=== PATIENT | female | born 1935 | race Caucasian/White ===

== ENCOUNTER 2017-09-23 17:18 | Inpatient (IN) | payer MEDICARE, OTHER ==
[2017-09-23 18:27] LABS: CKMB 0.6 ng/mL (0-6.6); Troponin I Less than 0.010 ng/mL (< 0.028)
[2017-09-23] MEDS ORDERED: Ondansetron HCl/PF 4 MG/2 ML Vial IVP PRN ×2 (19:23→20:28)
[2017-09-23] MEDS ORDERED: Acetaminophen 325 MG TAB PO PRN ×2 (19:23→20:28)
[2017-09-23] MEDS ORDERED: Ondansetron ODT 4 MG TAB SL PRN (19:23)
[2017-09-23] MEDS ORDERED: Dextrose 50% Abboject 50 ML SYRINGE SLOW IVP PRN (20:22)
[2017-09-23] MEDS ORDERED: Dextrose 5% in Water 1,000 ML IV PRN (20:22)
[2017-09-23] MEDS ORDERED: Nitroglycerin 0.4 MG TAB (25 Tab Bottle) PO PRN (20:22)
[2017-09-23] MEDS ORDERED: Insulin Regular 300 UNITS/3 ML VIAL SC PRN (20:22)
[2017-09-23] MEDS ORDERED: Milk Of Magnesia 30 ML UDCUP PO PRN (20:28)
[2017-09-23] MEDS ORDERED: Ondansetron ODT 4 MG TAB PO PRN (20:28)
[2017-09-23] MEDS ORDERED: Mag-Al 1200 mg/1200 mg/30 ML UDCUP PO PRN (20:28)
[2017-09-23] MEDS ORDERED: Calcium Carbonate 500 MG ChewTAB PO PRN (20:28)
[2017-09-23] MEDS ORDERED: Senokot 8.6 MG TAB PO PRN (20:28)
[2017-09-23] MEDS ORDERED: Labetalol HCl 100 MG/20 ML VIAL SLOW IVP PRN (20:32)
[2017-09-23 21:01] LABS: Troponin I Less than 0.010 ng/mL (< 0.028)
--- NOTE | 2017-09-23 21:23 | HP ---
DATE OF ADMISSION: 09/23/2017 PRIMARY CARE PHYSICIAN: Dr. Flores. PRIMARY BREAK UP WORKER: Dr. Mccormick. CHIEF COMPLAINT: Chest discomfort. HISTORY OF PRESENT ILLNESS: Patient is an 82-year-old female with coronary artery disease, status po st CABG, paroxysmal atrial fibrillation, started on anticoagulation 6 weeks ago, diabetes mellitus ty pe 2, and dyslipidemia, presented to the emergency room with chest discomfort. Chest discomfort star rimma 2 days ago and has been on and off. She also felt generally weak and fatigued. The pain was pre cordial in location without any radiation. No aggravating or relieving factor reported. It was mild to moderate in intensity. Six weeks ago, the patient was found to have irregular heartbeat for whic h Dr. Mccormick started her on Xarelto. She denies any melena, hematochezia, or hematemesis. No feve r or chills reported. She denies any cough or recent immobilization. She has been feeling generally weak and tired as well. In the emergency room, her initial vital signs showed temperature 98, respirations 22, pulse rate of 84 with blood pressure 120/48 with O2 saturation 97% on room air. Her EKG showed nonspecific ST-T wa ve changes. She received aspirin and was transferred to this facility. PAST MEDICAL HISTORY: 1. Coronary artery disease, status post coronary artery bypass grafting. 2. Diabetes mellitus type 2. 3. Chronic diastolic heart failure. 4. Hypertension. 5. Chronic respiratory failure, on home oxygen. 6. History of mitral valve replacement. 7. Chronic anemia. 8. History of pulmonary embolism in 2000. 9. Coronary stent placement. 10. Hyperlipidemia. 11. Gastroesophageal reflux disease. 12. Chronic kidney disease stage 2. 13. Hypothyroidism. 14. Anxiety and depression. PAST SURGICAL HISTORY: 1. GIA cardioversions. 2. CABG. 3. Bilateral cataract surgery. 4. Tonsillectomy. 5. Cholecystectomy. 6. Abdominal hysterectomy. 7. Cardiac catheterization with stent placement. SOCIAL HISTORY: The patient is a former smoker, quit smoking several years ago, currently lives at [facility] with her family. She is FULL CODE and makes her own decision with the help of her family. ALLERGIES: The patient is allergic to PENICILLIN, NITROFURANTOIN and PENTAZOCINE. FAMILY HISTORY: Positive for heart disease. CURRENT HOME MEDICATIONS: Family to get accurate list of medications. She is unable to recall all o f her home medications. REVIEW OF SYSTEMS: The following complete review of systems was negative, unless otherwise mentioned in the HPI or below: Constitutional: Weight loss or gain, ability to conduct usual activities. Skin: Rash, itching. Eyes: Double vision, pain. ENT/Mouth: Nose bleeding, neck stiffness, pain, tenderness. Cardiovascular: Palpitations, dyspnea on exertion, orthopnea. Respiratory: Shortness of breath, wheezing, cough, hemoptysis, fever or night sweats. Gastrointestinal: Poor appetite, abdominal pain, heartburn, nausea, vomiting, constipation, or diarr hea. Genitourinary: Urgency, frequency, dysuria, nocturia. Musculoskeletal: Pain, swelling. Neurologic/Psychiatric: Anxiety, depression. Allergy/Immunologic: Skin rash, bleeding tendency. PHYSICAL EXAMINATION: VITAL SIGNS: As discussed above. GENERAL: An 82-year-old female in no apparent distress. She complains of some chest pain that gets worse on sitting up. HEENT: Atraumatic, normocephalic, Sclerae are anicteric. Moist mucous membrane, no oral lesion. NECK: Supple, no JVD appreciated. No carotid bruit. LUNGS: Essentially clear to auscultation bilaterally, no wheezing, rales or rhonchi. HEART: S1, S2 present. Regular rate and rhythm. No murmur, rubs, or gallops appreciated. Rhythm a ppears to be regular. ABDOMEN: Soft, nontender, bowel sounds present. EXTREMITIES: No edema or calf tenderness. NEUROLOGIC: Grossly nonfocal, moves all four extremities. PSYCHIATRY: Alert, awake, oriented x3. SKIN: Warm and dry. LYMPH NODES: No palpable lymph nodes in the neck. PERIPHERAL VASCULAR: Radial pulses palpable bilaterally. MUSCULOSKELETAL: No joint swelling or tenderness. LABORATORY FINDINGS: Troponins were negative. INR 1.6. Hemoglobin was 9.0. Her hemoglobin in Apri l was 12.8. Chemistries showed sodium 140, potassium 4.3, chloride 103, bicarbonate 25, BUN 23, crea tinine 0.86. EKG by my review as discussed above. Chest x-ray by my review showed borderline pulmon onra vascular congestion. IMPRESSION: 1. Chest discomfort. We will rule out acute coronary syndrome. 2. Recent atrial fibrillation, started on anticoagulation approximately 6 weeks ago. 3. Hypertension. 4. Coronary artery disease, status post coronary artery bypass grafting. 5. Diabetes mellitus type 2. 6. Chronic diastolic heart failure. 7. Hypertension. 8. Obstructive sleep apnea on CPAP. 9. Hypothyroidism. 10. Chronic anemia. 11. History of pulmonary embolism in the past. 12. Gastroesophageal reflux disease. 13. Hypothyroidism. 14. Chronic respiratory failure, on home oxygen. 15. Anemia without any melena or hematochezia. PLAN: The patient will be monitored as a 23-hour observation. Cardiology will be consulted. We baldemar l keep her n.p.o. past midnight. We will get serial troponins. We will resume anticoagulation. We will monitor hemoglobin and hematocrit closely. We will start her on insulin sliding scale. We will hold metformin for now. Continue proton pump inhibitors. Stool for occult blood will be done. Plan of care was discussed with the patient in detail. She stated understanding.
[2017-09-23] MEDS: Polyethylene Glycol 3350 17 GM Packet PO SCH (21:31)
[2017-09-23] MEDS: ALPRAZolam 0.25 MG TAB PO PRN (21:34)
[2017-09-23 22:38] VITALS: BMI 26.6
[2017-09-24 05:12] LABS: Hemoglobin 8.6 g/dL (12.0-16.0)
[2017-09-24] MEDS: Levothyroxine Sodium 75 MCG TAB PO SCH (05:58)
--- NOTE | 2017-09-24 07:14 | PDOC.PN ---
- Subjective Encounter Start Date: 09/24/17 Encounter Start Time: 07:12 Subjective: vague L chest discomfort, weak in legs - Objective Resuscitation Status: Resuscitation Status FULL:Full Resuscitation MAR Reviewed: Yes Vital Signs & Weight: Vital Signs (12 hours) Temp Pulse Resp BP BP Pulse Ox 09/24/17 04:25 97.6 F 74 18 112/55 L 94 L 09/23/17 23:19 98.1 F 73 18 112/54 L 96 09/23/17 20:23 96 09/23/17 19:36 98.1 F 77 21 H 126/59 L 95 Weight Weight 160 lb I&O: 09/23/17 09/24/17 09/25/17 06:59 06:59 06:59 Intake Total 680 Output Total 600 Balance 80 Result Diagrams: 09/24/17 04:24 Additional Labs: Accuchecks 09/24/17 09/23/17 05:59 20:23 POC Glucose 168 H 172 H Phys Exam - Physical Examination Neck: no JVD Respiratory: clear to auscultation bilateral Cardiovascular: RRR, no significant murmur Gastrointestinal: soft, positive bowel sounds Musculoskeletal: no edema Dx/Plan (1) Chest pain Code(s): R07.9 - CHEST PAIN, UNSPECIFIED Status: Acute Qualifiers: Chest pain type: unspecified Qualified Code(s): R07.9 - Chest pain, unspecified (2) Anemia Code(s): D64.9 - ANEMIA, UNSPECIFIED Status: Acute Qualifiers: Anemia type: unspecified type (3) CAD (coronary artery disease), [place] coronary artery Code(s): I25.10 - ATHSCL HEART DISEASE OF [place] CORONARY ARTERY W/O ANG PCTRS Status: Chronic Qualifiers: [place] vs. transplanted heart: [place] heart Associated angina: without angina Qualified Code(s): I25.10 - Atherosclerotic heart disease of [place] coronary artery without angina pectoris (4) Diabetes type 2, controlled Code(s): E11.9 - TYPE 2 DIABETES MELLITUS WITHOUT COMPLICATIONS Status: Chronic Qualifiers: Diabetes mellitus detention insulin use: with detention use Diabetes mellitus complication status: without complication Qualified Code(s): E11.9 - Type 2 diabetes mellitus without complications; Z79.4 - nursing home (current) use of insulin (5) HLD (hyperlipidemia) Code(s): E78.5 - HYPERLIPIDEMIA, UNSPECIFIED Status: Chronic Qualifiers: Hyperlipidemia type: pure hypercholesterolemia Qualified Code(s): E78.00 - Pure hypercholesterolemia, unspecified; E78.0 - Pure hypercholesterolemia (6) Hypothyroidism Code(s): E03.9 - HYPOTHYROIDISM, UNSPECIFIED Status: Chronic Qualifiers: Hypothyroidism type: unspecified - Plan discuss with cardiology -: Hg 11+ 1 yr ago, now 8.5. Monitor Hg, FOBT, hold xarelto -: accu/ ss -: selectd home meds * .
[2017-09-24] MEDS ORDERED: Non-Formulary Item 1 EACH (Rivaroxaban [Xarelto] 20 MG) PO SCH (09:00)
[2017-09-24 11:17] LABS: Hemoglobin 8.9 g/dL (12.0-16.0); Platelet Count 154 thou/uL (130-400)
[2017-09-24] MEDS ORDERED: Rivaroxaban 10 MG TAB PO SCH (12:00)
[2017-09-24] MEDS: Ubidecarenone 50 MG CAP PO SCH (12:51)
[2017-09-24] MEDS: Losartan 25 MG TAB PO SCH (12:52)
[2017-09-24] MEDS: Furosemide 40 MG TAB PO SCH (12:52)
[2017-09-24] MEDS: Polyethylene Glycol 3350 17 GM Packet PO SCH (20:36)
[2017-09-24] MEDS: ALPRAZolam 0.25 MG TAB PO PRN (21:27)
--- NOTE | 2017-09-25 02:44 | CON ---
DATE OF CONSULTATION: 09/24/2017 HISTORY: Krista Pearson (Valorie Pearson) is an 82-year-old white female that I have followed for many years. She was initially evaluated in 10/2000. At the end of 09/2000, she ate [place] food and approximately 30 minutes later at rest , began to have chest tightness as well as pain in her neck, radiating to both arms. She had diaphoresis, nausea, shortness of breath, but no vomiting. This lasted 30 minutes. After that, she had short sticking pain in her chest that would only last 1-2 seconds. She denied any exertional chest discomfort, but did not walk regularly. She underwent stress echo testing and exercised for 5 minutes and 18 seconds and she had no chest discomfort. There was 1-[address]- segment depression in the anterior leads and [address]-segment depression in V4 through V6, which returned to baseline in 1-2 minutes. EKG was positive for ischemia. Echo revealed evidence of inferoposterior ischemia. She was placed on Toprol and Ecotrin. She underwent catheterization and had an ejection fraction of 50%-55%; 30% distal left main; small LAD, which was heavily calcified. There was a 60% proximal LAD stenosis at the left main. The circumflex was small with 40%-50% obtuse marginal stenosis. The right coronary artery had mild proximal disease and a 70% mid stenosis. She then underwent CABG x3 with SABA to the LAD and vein graft to the obtuse marginal and the distal right coronary artery. She had an uncomplicated postoperative course. After discharge, she sat in a chair with her legs propped up on the edge of her bed and began to notice that her right calf became sore. This gradually worsened. She had an episode where she fell to the ground and became acutely short of breath. Paramedics arrived and her O2 saturation was 77%. She was taken to the emergency room in [place], given Lovenox 1 mg/kg. Lung scan revealed high probability of pulmonary embolism. She was placed on Lovenox and then Coumadin. Cardiac enzymes were negative. She had a red, tender, and swollen right calf and it was felt that she probably had a DVT, although there was no further evaluation due to the evidence of pulmonary embolism. She was treated with Lasix for several days for fluid retention. At the time of discharge, her room air saturation was 94% and she was walking 200 feet in the beltre. In 12/2000, she was walking one-fifth of a mile per day. She denied any postprandial chest tightness like she had prior to bypass surgery. In 02/2001, she was admitted to [place] with epigastric discomfort that radiated to her back. She took nitroglycerin at home and went to the emergency room. Cardiac enzymes were negative. She was sent for further evaluation and underwent dobutamine echo testing. Ejection fraction was 50%-55% with scar of the inferoposterior wall, but no reversible ischemia. Imdur 30 mg was added. Troponin I was normal at that time. It was felt that the inferoposterior wall defect could represent prolonged ischemia in the region of her bypass graft. She also could have had a perioperative inferior infarction that was not clinically noted at the time of bypass. It was recommended that she undergo catheterization. She had an ejection fraction of 50%-55% with normal wall motion. There was a 60% proximal LAD, 80% first marginal. The right coronary artery had an 80% ostial stenosis and 80% mid stenosis. SABA to the LAD was patent. Vein graft to the obtuse marginal and to the right coronary artery were occluded. She underwent placement of stents in the right coronary artery, Penta 3.0 x 28, 3.5 x 33, and 3.5 x 13. It was noted that with balloon inflation, there were no EKG changes. It was felt that she probably had been developing collaterals. In the circumflex, 3 Pixel stents were placed; 2.25 x 28, 2.5 x 28, and 2.5 x 13. The following day, she was ambulating and was discharged. In 06/2001, she had been doing well, but has not been walking routinely. She had dramatic increase in fatigue as well as exertional dyspnea and had episodes of chest discomfort in the epigastrium that had radiated into her back. She had a prolonged episode and went to the emergency room. MB was 17.6, troponin I 3.7. It was felt that she had a non-STEMI and was transferred here. She underwent catheterization and was found to have subtotal in-stent restenosis involving both the right coronary artery and the circumflex systems. In addition, it was noted that she had [id number] mitral regurgitation and moderate reduction in left ventricular function. She was referred for reoperative CABG and mitral valve replacement, which was performed on 02/19/2001. She underwent repeat CABG x1 with saphenous vein graft to the distal right coronary artery and mitral valve replacement with a #29 Ray II bioprosthetic valve. The obtuse marginal beyond the stented area was considered not graftable as it was thread like. Additionally noted at operation was complete sternal dehiscence with the wires being pulled through. This was repaired. She was not seen again for 5 years until she came back to the office in 07/2006 complaining of lower substernal and epigastric discomfort that would occur at rest, lasting 10-15 minutes after eating. Gaviscon and belching would help. The episodes would last 15-20 minutes. She had weak legs that did not seem to have improved after stopping Crestor. Prevacid was changed from in the morning to the evening. With that change, she did not have any further episodes of chest discomfort. She also had a 1/6 systolic murmur along the left sternal border. Echo revealed ejection fraction of 50%-55% with mildly enlarged left atrium, bioprosthetic mitral valve, [id number] tricuspid regurgitation, and mild pulmonic regurgitation. She underwent adenosine Cardiolite testing, which revealed a fixed inferolateral defect with moderate degree of reversibility. In 02/2008, she complained of chest pressure and had negative cardiac enzymes. She was not seen again until 03/2009, when she came back complaining of right eye going black for a few minutes and then returning to normal. Carotid Doppler revealed greater than 50% narrowing of her left external carotid artery. She was seen by Dr. Javed and she did not have any retinal tear. Ecotrin was increased to 325 daily and she was told to restart her Crestor. In 05/2009, she was admitted after awakening at night with respiratory distress. She became clammy, diaphoretic, and could not breathe. She was taken to the emergency room in [place], started on BiPAP, and transferred for further evaluation. Two weeks prior to that, she apparently gone to the emergency room with the same problem and was given intravenous Lasix and her shortness of breath improved and she was discharged. She also admitted to high- salt intake at that time. She was diuresed with dramatic improvement in her symptoms. Echocardiogram revealed ejection fraction of 50%-55% with bioprosthetic mitral valve, mild mitral regurgitation, moderate mitral stenosis , and mitral valve area of 1.2 sq cm by pressure half-time, moderate pulmonic insufficiency, moderate tricuspid regurgitation, trace aortic insufficiency. With 2 separate episodes of pulmonary edema in a month's time, it was felt that she should undergo catheterization. Wedge pressure was 11. Cardiac output 4.10 liters per minute, cardiac index 2.5 liters per minute per meter square. The mean mitral valve gradient was 8.13 mm with a calculated mitral valve area of 1.25 sq cm. Ejection fraction was 45%-50% with mild global hypokinesis. Her coronary arteries were heavily calcified. There was a 90% distal left main stenosis; 95% in-stent restenosis of the proximal circumflex; 90% stenosis in the first obtuse marginal, which was also in-stent restenosis and severe distal circumflex disease. The right coronary artery had a 99% proximal stenosis and was totally occluded proximally. Bypass grafts revealed patent SABA to the LAD and the right coronary artery graft was also patent. The following day, she underwent transesophageal echo to further define her mitral valve prosthesis. Mitral valve apparatus was totally calcified, the leaflets were difficult to visualize. She had severe turbulence noted by color Doppler of the mitral inflow. Maximum pressure gradient was 25.6 mm with a mean gradient of 12.4 mm. Estimated mitral valve area was 1.5 sq cm. She was seen by Dr. Lopez and it was offered to her to undergo redo mitral valve replacement; however, she was hesitant to do that. In 02/2009, she was seen in the office, continued to have dyspnea on exertion, but no chest pain. In 10/2009, she was admitted complaining of increased weakness after she was told by her primary doctor she should reduce her Lasix to 1/2 of the dose. She then awoke at 1:30 a.m. to go to the bathroom, became acutely short of breath and was taken to the [facility], given intravenous Lasix. Chest x-ray revealed pulmonary edema. Hemoglobin was 8.4, but she denied any melena or hematochezia. She was found to have iron deficiency anemia. EGD and colonoscopy a year previously were unremarkable. She underwent outpatient capsule endoscopy, which did not reveal any source of GI bleed. Her aspirin was reduced to 81 mg daily. In 03/2010, she received transfusion in [place]. She continued to have increased shortness of breath. O2 saturation was 80%. She underwent CT angiogram, which revealed no evidence of pulmonary embolism. Echo at that time revealed mitral valve area of 1.9 sq cm by pressure half-time; however, this had been found to be much more severe on previous echo. She was diuresed. Again, it was recommended she undergo redo mitral valve replacement and she again declined. She was hospitalized again in 06/2010 with increased shortness of breath as well as episodes of PND, and again declined mitral valve replacement until her grandson had his wedding. She then underwent redo mitral valve replacement with placement of a 29-mm [place] porcine bioprosthesis. She was found to have calcification in 2 bioprosthetic valve leaflets and the third leaflet was essentially destroyed. She had a fairly unremarkable postoperative course. She continued to be followed in the office. At times, she would have peripheral edema when she would not take her Lasix. She was admitted again in 10/2013 complaining of increased shortness of breath, episodes of PND and abdominal swelling. She had lower extremity edema. Apparently at home, she was not using the DuoNeb like she did before, and she was on Lasix 20 mg instead of Lasix 40 mg versus before. She denied any chest discomfort. Echo at that time revealed ejection fraction of 45%-50% with a bioprosthetic mitral valve area of 1.4 sq cm. She had been noncompliant with her CPAP at night. She was again admitted in 01/2014, felt to be due to acute bronchitis as well as congestive heart failure. In 02/2016, she was again admitted with atrial flutter. This was the first time she ever been seen to have the atrial flutter. She underwent transesophageal echo, which revealed no left atrial or left atrial appendage thrombus. This was then followed by electrical cardioversion. She was started on Xarelto anticoagulation. She was again admitted in 04/2016 with melena. Upper endoscopy revealed multiple gastric polyps and afterwards was cleared by Dr. Dave to resume Xarelto. In 2016, she underwent colonoscopy, which revealed small internal hemorrhoids and some polyps with polypectomy. She did not return for followup from 07/2016 until she came back to the office on 07/31/2017. She would at times have chest discomfort if she would overeat. She had problems with muscle aches with Crestor, atorvastatin, and simvastatin, and was started on Repatha 140 mg daily on that visit. Also, on EKG, it was noted that she was back in atrial flutter. She had not resumed Xarelto and so, she was again started 20 mg daily since she had been approved by GI to resume anticoagulation. Since she has started taking that, she denies any melena or hematochezia. She has developed significant weakness, worsening shortness of breath, and episodes of atypical chest pain with pain on the left side of her chest that mostly is tender to the touch. Cardiac enzymes have been negative. She has been found to be anemic. PAST MEDICAL HISTORY: Hypertension, diabetes, hyperlipidemia, hypothyroidism, GERD, history of gastrointestinal bleed with no source found, and coronary artery disease. PAST SURGICAL HISTORY: Two CABGs, the second one with mitral valve replacement. She also then underwent her third heart surgery with replacement of mitral valve that became stenosed. Bilateral cataract surgery, tonsillectomy , cholecystectomy, abdominal hysterectomy, multiple cardiac stent placement. MEDICATIONS: Xanax 0.5 mg at bedtime p.r.n., aspirin 81 daily, Xarelto 20 mg q.p.m., furosemide 40 q.a.m., Prevacid 15 b.i.d., Synthroid 75 mcg daily, losartan 50 daily, metformin 1000 mg q.p.m. and 500 mg q.a.m., MiraLax, and CoQ10 200 mg daily. She also had been started on Repatha 140 mg every 2 weeks and has had 3 total doses of this. ALLERGIES: PENICILLIN, TALWIN, ACHROMYCIN, and MACROBID. SOCIAL HISTORY: She is . She has smoked in the past, stopped many years ago. She does not drink alcohol. FAMILY HISTORY: Negative for myocardial infarction, CABG, or sudden . REVIEW OF SYSTEMS: Twelve-point review of systems is unremarkable. PHYSICAL EXAMINATION: VITAL SIGNS: Blood pressure 119/58, pulse 74. HEENT: PERRL. NECK: Supple. CHEST: Clear. CARDIAC: S1 and S2 are normal without any S3 or S4. There is 1/6 systolic murmur along the left sternal border. ABDOMEN: Normal bowel sounds without tenderness, organomegaly. EXTREMITIES: Revealed no clubbing, cyanosis, or edema. NEUROLOGIC: Grossly intact. SKIN: Warm and dry. MUSCULOSKELETAL: Palpable tenderness of the left lower chest wall, which seems to reproduce lot of her symptoms. LABORATORY DATA: Admission EKG reveals probable atypical atrial flutter. Other rhythm strips during this admission revealed atrial fibrillation. Her rate appears to be well controlled. Hemoglobin on admission was 9, fell to 8.6 ; hematocrit 29, fallen to 25.8. INR 1.6. Sodium 140, potassium 4.3, chloride 103, carbon dioxide 25, BUN 23, creatinine 0.86, glucose 169. Troponin I is negative x3. Chest x-ray revealed borderline pulmonary vascular congestion and atherosclerosis. IMPRESSION: 1. Atypical chest discomfort, which I feel is probably more musculoskeletal in nature and do not feel that her chest pain is cardiac. 2. Increasing fatigue, weakness secondary to anemia with probable gastrointestinal bleed on Xarelto again. 3. Recurrence of atrial flutter and now at times it appears to be atrial fibrillation. The rate is controlled. 4. Status post coronary artery bypass grafting in 2000 with left internal mammary artery to the left anterior descending and vein graft to the obtuse marginal and the right coronary artery. 4. Pulmonary embolism in 11/2000 after bypass surgery. 5. Stenting of the circumflex and right coronary artery in 04/2001 when it was found that the obtuse marginal and right coronary artery grafts were occluded. 6. Redo coronary artery bypass grafting and mitral valve replacement in 2001 with bioprosthetic mitral valve being placed and vein graft to the right coronary artery. 7. 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 8. Diabetes. 9. Hypertension. 10. Hyperlipidemia. 11. Former smoker. 12. Iron deficiency anemia. 13. 24-hour O2 use. 14. Hypothyroidism. 15. Obesity. PLAN: I do not feel that her current pain is cardiac in nature. However, she does appear to have had a gastrointestinal blood loss from the Xarelto. Certainly, with her atrial arrhythmias and a bioprosthetic mitral valve, she has an increased stroke risk, but obviously cannot be anticoagulated now that she has had GI bleeding again on Xarelto. Her hemoglobin will be watched closely and she certainly may require transfusion. I will follow the patient with you. FAWAD
[2017-09-25] MEDS: Insulin Regular 300 UNITS/3 ML VIAL SC PRN (05:05)
[2017-09-25] MEDS: Levothyroxine Sodium 75 MCG TAB PO SCH (05:06)
[2017-09-25 05:20] LABS: #Eosinphils 0.7 thou/uL (0.0-0.7); #Lymphocytes 1.5 thou/uL (1.20-3.40); #Monocytes 0.7 thou/uL (0.11-0.59); %Basophils 0.1 % (0.0-1.0); %Eosinophils 10.2 % (0.0-10.0); %Lymphocytes 21.5 % (21.0-51.0); %Monocytes 9.4 % (0.0-10.0); %Neutrophils 58.8 % (42.0-75.0); Hemoglobin 8.6 g/dL (12.0-16.0); Mean Corpuscular HGB CONC 33.3 g/dL (32.0-36.0); Mean Corpuscular Hemoglobin 28.2 pg (27.0-31.0); Mean Corpuscular Volume 84.5 fL (78.0-98.0); Mean Platelet Volume 7.9 fL (7.4-10.4); Platelet Count 182 thou/uL (130-400); Red Blood Cell (RBC) Count 3.06 mill/uL (4.20-5.40); White Blood Cell (WBC) Count 6.9 thou/uL (4.8-10.8)
[2017-09-25 05:27] LABS: Cardiac Risk 2.9 (Less than 4.5)
[2017-09-25 07:34] LABS: Iron 28 ug/dL (50-170); Iron Binding Capacity, Total 384 mcg/dL (265-497)
[2017-09-25] MEDS ORDERED: Ferrous Sulfate 325 MG TAB PO SCH (09:15)
[2017-09-25] MEDS: Ubidecarenone 50 MG CAP PO SCH (09:44)
[2017-09-25] MEDS: Furosemide 40 MG TAB PO SCH (09:45)
[2017-09-25] MEDS: Losartan 25 MG TAB PO SCH (09:45)
[2017-09-25] MEDS: metFORMIN 500 MG TAB PO SCH ×2 (09:45→17:38)
--- NOTE | 2017-09-25 10:27 | PDOC.PN ---
- Subjective Encounter Start Date: 09/25/17 Encounter Start Time: 10:25 Subjective: better off xarelto - Objective Resuscitation Status: Resuscitation Status FULL:Full Resuscitation MAR Reviewed: Yes Vital Signs & Weight: Vital Signs (12 hours) Temp Pulse Resp BP Pulse Ox 09/25/17 09:06 96 09/25/17 08:00 98.4 F 75 18 09/25/17 07:37 98.1 F 76 20 183/74 H 96 09/25/17 03:15 98.4 F 75 18 149/67 H 97 09/25/17 00:45 75 18 152/65 H Weight Weight 158 lb 9.6 oz I&O: 09/24/17 09/25/17 09/26/17 06:59 06:59 06:59 Intake Total 680 1320 Output Total 600 1225 Balance 80 95 Result Diagrams: 09/25/17 04:41 09/24/17 11:09 Additional Labs: Accuchecks 09/25/17 09/24/17 09/24/17 04:41 20:29 16:59 POC Glucose 295 H 220 H 209 H 09/24/17 10:38 POC Glucose 194 H Phys Exam - Physical Examination Neck: no JVD Respiratory: clear to auscultation bilateral Cardiovascular: RRR, no significant murmur Gastrointestinal: soft, positive bowel sounds Musculoskeletal: no edema Dx/Plan (1) Chest pain Code(s): R07.9 - CHEST PAIN, UNSPECIFIED Status: Acute Qualifiers: Chest pain type: unspecified Qualified Code(s): R07.9 - Chest pain, unspecified (2) Anemia Code(s): D64.9 - ANEMIA, UNSPECIFIED Status: Acute Qualifiers: Anemia type: unspecified type (3) CAD (coronary artery disease), [place] coronary artery Code(s): I25.10 - ATHSCL HEART DISEASE OF [place] CORONARY ARTERY W/O ANG PCTRS Status: Chronic Qualifiers: [place] vs. 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 insulin use: with shelter use Diabetes mellitus complication status: without complication Qualified Code(s): E11.9 - Type 2 diabetes mellitus without complications; Z79.4 - long term care pharmacist (current) use of insulin (5) HLD (hyperlipidemia) Code(s): E78.5 - HYPERLIPIDEMIA, UNSPECIFIED Status: Chronic Qualifiers: Hyperlipidemia type: pure hypercholesterolemia Qualified Code(s): E78.00 - Pure hypercholesterolemia, unspecified; E78.0 - Pure hypercholesterolemia (6) Hypothyroidism Code(s): E03.9 - HYPOTHYROIDISM, UNSPECIFIED Status: Chronic Qualifiers: Hypothyroidism type: unspecified - Plan off xarelto, on asa,plavix -: serial H&H, retic count -: card has asked EP to see -: cont accu/ss/metformin * .
[2017-09-25] MEDS: Ferrous Sulfate 325 MG TAB PO SCH (17:38)
[2017-09-25] MEDS: Amiodarone 200 MG TAB PO SCH (21:35)
[2017-09-25] MEDS: Polyethylene Glycol 3350 17 GM Packet PO SCH (21:36)
[2017-09-25] MEDS: ALPRAZolam 0.25 MG TAB PO PRN (21:36)
[2017-09-26] MEDS: Levothyroxine Sodium 75 MCG TAB PO SCH (05:45)
[2017-09-26 05:51] LABS: Reticulocyte Count 2.8 % (0.5-1.5)
[2017-09-26 05:52] LABS: #Eosinphils 0.8 thou/uL (0.0-0.7); #Lymphocytes 1.5 thou/uL (1.20-3.40); #Monocytes 0.8 thou/uL (0.11-0.59); %Basophils 0.5 % (0.0-1.0); %Eosinophils 10.9 % (0.0-10.0); %Lymphocytes 21.2 % (21.0-51.0); %Monocytes 10.8 % (0.0-10.0); %Neutrophils 56.6 % (42.0-75.0); Hemoglobin 9.1 g/dL (12.0-16.0); Mean Corpuscular Hemoglobin 27.6 pg (27.0-31.0); Mean Corpuscular Volume 83.9 fL (78.0-98.0); Mean Platelet Volume 7.8 fL (7.4-10.4); Platelet Count 201 thou/uL (130-400); RBC Distribution Width 13.9 % (11.5-14.5); Red Blood Cell (RBC) Count 3.28 mill/uL (4.20-5.40); White Blood Cell (WBC) Count 7.1 thou/uL (4.8-10.8)
[2017-09-26] MEDS: Losartan 25 MG TAB PO SCH (08:58)
[2017-09-26] MEDS: Amiodarone 200 MG TAB PO SCH ×3 (08:58→19:49)
[2017-09-26] MEDS: Ferrous Sulfate 325 MG TAB PO SCH ×2 (08:58→16:14)
[2017-09-26] MEDS: Ubidecarenone 50 MG CAP PO SCH (08:58)
[2017-09-26] MEDS: metFORMIN 500 MG TAB PO SCH ×2 (08:59→16:14)
[2017-09-26] MEDS: Furosemide 40 MG TAB PO SCH (08:59)
[2017-09-26] MEDS: Insulin Regular 300 UNITS/3 ML VIAL SC PRN (11:36)
--- NOTE | 2017-09-26 13:30 | PDOC.CTH ---
Cardiology Progress Note - Subjective EP Progress note: Pt seen and evaluated. no significant changes overnight. She feels well and has not noticed any raphael or obvious bleeding. She reports tolerating the amiodarone. Denies heart racing, palpitations, chest pain/pressure, dizziness, or passing out. No stroke like symptoms off OAC. Tolerating PO intake and ambulating. - Objective Vital Signs Temp Pulse Resp BP BP Pulse Ox 09/26/17 12:00 98 F 77 16 177/72 H 95 09/26/17 08:00 97.9 F 74 16 147/63 H 93 L 09/26/17 04:25 96.6 F L 70 16 111/54 L 99 Weight 158 lb 9.6 oz 09/25/17 09/26/17 09/27/17 06:59 06:59 06:59 Intake Total 1320 1961 Output Total 1225 1100 Balance 95 861 - Physical Examination General/Neuro: alert & oriented x3, NAD Neck: carotid US brisk, no JVD present Lungs: CTA, unlabored respirations Heart: PMI normal, RRR Abdomen: soft - Telemetry Telemetry Rhythm: Atrial flutter - Labs Result Diagrams: 09/26/17 05:28 09/24/17 11:09 Troponin/CKMB CK-MB (CK-2) 0.6 ng/mL (0-6.6) 09/23/17 17:52 Troponin I Less than 0.010 ng/mL (< 0.028) 09/23/17 20:27 - Assessment/Plan 1. Recurrent atypical atrial flutter, asymptomatic and ventricular rate controlled, Amiodarone started and tolerating well. Planning possible GIA/CV as outpatient. 2. CHADS2 VASC: 5, xarelto on hold for anemia. Discussed trying alternative OAC with Eliquis and close monitoring in the future. If able to tolerate short term Eliquis we will discuss left atrial appendage closure with watchman given her hx of GIB on OAC. 3. Anemia secondary to slow GI bleed: Hgb stable and trending up slightly without transfusion.
[2017-09-26] MEDS: Polyethylene Glycol 3350 17 GM Packet PO SCH (19:50)
--- NOTE | 2017-09-26 20:57 | PDOC.PN ---
- Subjective Encounter Start Date: 09/26/17 Encounter Start Time: 11:30 Subjective: pt up in bed feels tired when she walks - Objective Resuscitation Status: Resuscitation Status FULL:Full Resuscitation Vital Signs & Weight: Vital Signs (12 hours) Temp Pulse Pulse Pulse Resp BP BP 09/26/17 15:07 98 F 72 16 09/26/17 12:00 98 F 77 16 09/26/17 11:40 58 L 75 137/63 165/70 H BP Pulse Ox Pulse Ox Pulse Ox 09/26/17 15:07 125/56 L 99 09/26/17 12:00 177/72 H 95 09/26/17 11:40 99 94 L Weight Weight 158 lb 9.6 oz I&O: 09/25/17 09/26/17 09/27/17 06:59 06:59 06:59 Intake Total 1320 1961 960 Output Total 1225 1100 800 Balance 95 861 160 Result Diagrams: 09/26/17 05:28 09/24/17 11:09 Additional Labs: Accuchecks 09/26/17 09/26/17 09/26/17 16:22 14:08 11:13 POC Glucose 199 H 193 H 216 H 09/26/17 09/25/17 05:45 21:39 POC Glucose 182 H 175 H Phys Exam - Physical Examination Neck: no nodes, no JVD, supple, full ROM Respiratory: no wheezing, no rales, no rhonchi, wheezing present, clear to auscultation bilateral Cardiovascular: RRR, no significant murmur, no rub, gallop, irregular Gastrointestinal: soft, non-tender, no distention, positive bowel sounds Dx/Plan (1) Chest pain Code(s): R07.9 - CHEST PAIN, UNSPECIFIED Status: Acute Qualifiers: Chest pain type: unspecified Qualified Code(s): R07.9 - Chest pain, unspecified (2) Atrial flutter Code(s): I48.92 - UNSPECIFIED ATRIAL FLUTTER Status: Resolved Comment: s/p ablation one month ago (3) Diabetes type 2, controlled Code(s): E11.9 - TYPE 2 DIABETES MELLITUS WITHOUT COMPLICATIONS Status: Chronic Qualifiers: Diabetes mellitus prison insulin use: with prison use Diabetes mellitus complication status: without complication Qualified Code(s): E11.9 - Type 2 diabetes mellitus without complications; Z79.4 - long-term (current) use of insulin - Plan pt's rate has been controlled -: pt wanted to go to rehab since she feels she gets weak and sob -: pt's hh stable without any transfusion -: this is the 3rd time she is anemic on xarelto. * . Review of Systems - Review of Systems ENT: negative: Ear Pain, Ear Discharge, Nose Pain, Nose Discharge, Nose Congestion, Mouth Pain, Mouth Swelling, Throat Pain, Throat Swelling, Other Respiratory: Shortness of Breath Cardiovascular: negative: chest pain, palpitations, orthopnea, paroxysmal nocturnal dyspnea, edema, light headedness, other Gastrointestinal: negative: Nausea, Vomiting, Abdominal Pain, Diarrhea, Constipation, Melena, Hematochezia, Other - Medications/Allergies Allergies/Adverse Reactions: Allergies Allergy/AdvReac Type Severity Reaction Status Date / Time nitrofurantoin Allergy SEIZURE Verified 07/29/16 14:05 penicillin V Allergy Rash Verified 04/23/16 01:26 Penicillins Allergy Rash Verified 04/23/16 01:26 pentazocine Allergy HALLUCINATI Verified 07/29/16 14:05 ONS pentazocine lactate Allergy Verified 04/23/16 01:26 [From Elizabeth] MYCINS Allergy SEIZURE Uncoded 07/29/16 14:05 Medications: Current Medications Acetaminophen (Tylenol) 650 mg PO Q4H PRN PRN Reason: Headache/Fever or Pain Al Hydroxide/Mg Hydroxide (Maalox) 30 ml PO Q6H PRN PRN Reason: Heartburn or Indigestion Alprazolam (Xanax) 0.25 mg PO HSPRN PRN PRN Reason: Anxiety Last Admin: 09/26/17 22:12 Dose: 0.25 mg Amiodarone HCl (Cordarone) 400 mg PO TID [facility] Last Admin: 09/27/17 20:06 Dose: 400 mg Aspirin (Aspirin Chewable) 81 mg PO DAILY [facility] Last Admin: 09/27/17 08:24 Dose: 81 mg Calcium Carbonate (Tums) 1,000 mg PO Q4H PRN PRN Reason: Heartburn or Indigestion Coenzyme Q10 (Coenzyme Q10) 200 mg PO DAILY [facility] Last Admin: 09/27/17 08:24 Dose: 200 mg Dextrose/Water (Dextrose 50%) 25 gm SLOW IVP PRN PRN PRN Reason: Hypoglycemia Ferrous Sulfate (Feosol) 325 mg PO BID[facility] Last Admin: 09/27/17 17:09 Dose: 325 mg Furosemide (Lasix) 40 mg PO DAILY [facility] Last Admin: 09/27/17 08:24 Dose: 40 mg Glucagon (Glucagon) 1 mg IM PRN PRN PRN Reason: Hypoglycemia Dextrose/Water (D5w) 1,000 mls @ 0 mls/hr IV .Q0M PRN PRN Reason: Hypoglycemia Insulin Human Regular (Humulin R) 0 units SC .MILD SLIDING SCALE PRN PRN Reason: Mild Correctional Scale Last Admin: 09/26/17 11:36 Dose: 3 unit Insulin Human Regular (Humulin R) 0 units SC .BEDTIME SLIDING SC PRN PRN Reason: Bedtime Correctional Scale Labetalol HCl (Normodyne) 10 mg SLOW IVP Q4H PRN PRN Reason: Systolic BP > 180 Levothyroxine Sodium (Synthroid) 75 mcg PO 0600 [facility] Last Admin: 09/27/17 05:05 Dose: 75 mcg Losartan Potassium (Cozaar) 50 mg PO DAILY [facility] Last Admin: 09/27/17 08:24 Dose: 50 mg Magnesium Hydroxide (Milk Of Magnesium) 30 ml PO DAILYPRN PRN PRN Reason: Constipation Metformin HCl (Glucophage) 500 mg PO QAM-[facility] Last Admin: 09/27/17 08:24 Dose: 500 mg Metformin HCl (Glucophage) 1,000 mg PO QPM-[facility] Last Admin: 09/27/17 17:09 Dose: 500 mg Nitroglycerin (Nitrostat) 0.4 mg PO Q5MIN PRN PRN Reason: Chest Pain Ondansetron HCl (Zofran Odt) 4 mg PO Q6H PRN PRN Reason: Nausea/Vomiting Ondansetron HCl (Zofran) 4 mg IVP Q6H PRN PRN Reason: Nausea/Vomiting Pantoprazole Sodium (Protonix) 40 mg PO BID [facility] Last Admin: 09/27/17 20:06 Dose: 40 mg Polyethylene Glycol (Miralax) 17 gm PO HS [facility] Last Admin: 09/27/17 20:06 Dose: 17 gm Senna (Senokot) 2 tab PO HSPRN PRN PRN Reason: Constipation Sodium Chloride (Flush - Normal Saline) 10 ml IVF PRN PRN PRN Reason: Saline Flush Last Admin: 09/27/17 20:06 Dose: 10 ml
[2017-09-26] MEDS: ALPRAZolam 0.25 MG TAB PO PRN (22:12)
[2017-09-27] MEDS: Levothyroxine Sodium 75 MCG TAB PO SCH (05:05)
[2017-09-27] MEDS: Ubidecarenone 50 MG CAP PO SCH (08:24)
[2017-09-27] MEDS: Furosemide 40 MG TAB PO SCH (08:24)
[2017-09-27] MEDS: metFORMIN 500 MG TAB PO SCH ×2 (08:24→17:09)
[2017-09-27] MEDS: Amiodarone 200 MG TAB PO SCH ×3 (08:24→20:06)
[2017-09-27] MEDS: Losartan 25 MG TAB PO SCH (08:24)
[2017-09-27] MEDS: Ferrous Sulfate 325 MG TAB PO SCH ×2 (08:25→17:09)
--- NOTE | 2017-09-27 16:14 | PDOC.CTH ---
Cardiology Progress Note - Subjective She is doing well. - Objective Vital Signs Temp Pulse Resp BP BP Pulse Ox 09/27/17 15:07 97.6 F 63 14 153/63 H 96 09/27/17 11:46 97.8 F 66 16 151/63 H 99 09/27/17 07:30 97.6 F 63 16 96 09/27/17 07:18 97.6 F 63 16 113/53 L 96 Weight 158 lb 9.6 oz 09/26/17 09/27/17 09/28/17 06:59 06:59 06:59 Intake Total 1961 960 Output Total 1100 800 Balance 861 160 - Physical Examination General/Neuro: alert & oriented x3, NAD Neck: no JVD present Lungs: unlabored respirations Heart: RRR Abdomen: NT/ND Extremities: other: (no edema.) - Telemetry Telemetry Rhythm: NSR - Labs Result Diagrams: 09/26/17 05:28 09/24/17 11:09 Troponin/CKMB CK-MB (CK-2) 0.6 ng/mL (0-6.6) 09/23/17 17:52 Troponin I Less than 0.010 ng/mL (< 0.028) 09/23/17 20:27 - Assessment/Plan 1. Recurrent atrial flutter. 2. Sypmtomatic anemia on Xarelto 3. Possible GI bleed. 4. 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 5. T2DM 6. HTN 7. HLP. PLAN: - EP may consider trying Eliquis instead of Xarelto see if she can tolerate at least 3 months worth to do a Watchman on her safely. - Continue amiodarone, currently in sinus. - Other option would be doing a Lariat instead of a watchman but o do not know if having had a mitrl valve replaced would make her not be a candidate for this. Will defer to EP.
[2017-09-27] MEDS: Polyethylene Glycol 3350 17 GM Packet PO SCH (20:06)
--- NOTE | 2017-09-27 21:04 | PDOC.PN ---
- Subjective Encounter Start Date: 09/27/17 Encounter Start Time: 12:30 Subjective: pt up in bed no complains - Objective Resuscitation Status: Resuscitation Status FULL:Full Resuscitation Vital Signs & Weight: Vital Signs (12 hours) Temp Pulse Resp BP BP BP Pulse Ox 09/27/17 19:33 98.1 F 62 18 124/57 L 99 09/27/17 15:07 97.6 F 63 14 153/63 H 96 09/27/17 11:46 97.8 F 66 16 151/63 H 99 Weight Weight 158 lb 9.6 oz I&O: 09/26/17 09/27/17 09/28/17 06:59 06:59 06:59 Intake Total 3020 076 6460 Output Total 6459 356 1671 Balance 861 160 250 Result Diagrams: 09/26/17 05:28 09/24/17 11:09 Additional Labs: Accuchecks 09/27/17 09/27/17 09/27/17 17:09 10:56 06:02 POC Glucose 191 H 240 H 176 H 09/26/17 09/26/17 23:53 20:16 POC Glucose 166 H 208 H Phys Exam - Physical Examination HEENT: PERRLA, moist MMs, sclera anicteric, TM's clear, oral pharynx no lesions , 2+ tonsils Respiratory: no wheezing, no rales, no rhonchi, wheezing present, clear to auscultation bilateral Cardiovascular: RRR, no significant murmur, no rub, gallop, irregular Gastrointestinal: soft, non-tender, no distention, positive bowel sounds Dx/Plan (1) Chest pain Code(s): R07.9 - CHEST PAIN, UNSPECIFIED Status: Acute Qualifiers: Chest pain type: unspecified Qualified Code(s): R07.9 - Chest pain, unspecified (2) Atrial flutter Code(s): I48.92 - UNSPECIFIED ATRIAL FLUTTER Status: Resolved Comment: s/p ablation one month ago (3) Diabetes type 2, controlled Code(s): E11.9 - TYPE 2 DIABETES MELLITUS WITHOUT COMPLICATIONS Status: Chronic Qualifiers: 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 -: Discusses with her about risk of bleed and stroke if she is off of AC -: will hold off on ac and continue asa * . Review of Systems - Review of Systems ENT: negative: Ear Pain, Ear Discharge, Nose Pain, Nose Discharge, Nose Congestion, Mouth Pain, Mouth Swelling, Throat Pain, Throat Swelling, Other Respiratory: Shortness of Breath Cardiovascular: negative: chest pain, palpitations, orthopnea, paroxysmal nocturnal dyspnea, edema, light headedness, other Gastrointestinal: negative: Nausea, Vomiting, Abdominal Pain, Diarrhea, Constipation, Melena, Hematochezia, Other - Medications/Allergies Allergies/Adverse Reactions: Allergies Allergy/AdvReac Type Severity Reaction Status Date / Time nitrofurantoin Allergy SEIZURE Verified 07/29/16 14:05 penicillin V Allergy Rash Verified 04/23/16 01:26 Penicillins Allergy Rash Verified 04/23/16 01:26 pentazocine Allergy HALLUCINATI Verified 07/29/16 14:05 ONS pentazocine lactate Allergy Verified 04/23/16 01:26 [From Elizabeth] MYCINS Allergy SEIZURE Uncoded 07/29/16 14:05 Medications: Current Medications Acetaminophen (Tylenol) 650 mg PO Q4H PRN PRN Reason: Headache/Fever or Pain Al Hydroxide/Mg Hydroxide (Maalox) 30 ml PO Q6H PRN PRN Reason: Heartburn or Indigestion Alprazolam (Xanax) 0.25 mg PO HSPRN PRN PRN Reason: Anxiety Last Admin: 09/26/17 22:12 Dose: 0.25 mg Amiodarone HCl (Cordarone) 400 mg PO TID [facility] Last Admin: 09/27/17 20:06 Dose: 400 mg Aspirin (Aspirin Chewable) 81 mg PO DAILY [facility] Last Admin: 09/27/17 08:24 Dose: 81 mg Calcium Carbonate (Tums) 1,000 mg PO Q4H PRN PRN Reason: Heartburn or Indigestion Coenzyme Q10 (Coenzyme Q10) 200 mg PO DAILY [facility] Last Admin: 09/27/17 08:24 Dose: 200 mg Dextrose/Water (Dextrose 50%) 25 gm SLOW IVP PRN PRN PRN Reason: Hypoglycemia Ferrous Sulfate (Feosol) 325 mg PO BID-[facility] Last Admin: 09/27/17 17:09 Dose: 325 mg Furosemide (Lasix) 40 mg PO DAILY [facility] Last Admin: 09/27/17 08:24 Dose: 40 mg Glucagon (Glucagon) 1 mg IM PRN PRN PRN Reason: Hypoglycemia Dextrose/Water (D5w) 1,000 mls @ 0 mls/hr IV .Q0M PRN PRN Reason: Hypoglycemia Insulin Human Regular (Humulin R) 0 units SC .MILD SLIDING SCALE PRN PRN Reason: Mild Correctional Scale Last Admin: 09/26/17 11:36 Dose: 3 unit Insulin Human Regular (Humulin R) 0 units SC .BEDTIME SLIDING SC PRN PRN Reason: Bedtime Correctional Scale Labetalol HCl (Normodyne) 10 mg SLOW IVP Q4H PRN PRN Reason: Systolic BP > 180 Levothyroxine Sodium (Synthroid) 75 mcg PO 0600 [facility] Last Admin: 09/27/17 05:05 Dose: 75 mcg Losartan Potassium (Cozaar) 50 mg PO DAILY [facility] Last Admin: 09/27/17 08:24 Dose: 50 mg Magnesium Hydroxide (Milk Of Magnesium) 30 ml PO DAILYPRN PRN PRN Reason: Constipation Metformin HCl (Glucophage) 500 mg PO QAM-[facility] Last Admin: 09/27/17 08:24 Dose: 500 mg Metformin HCl (Glucophage) 1,000 mg PO QPM-[facility] Last Admin: 09/27/17 17:09 Dose: 500 mg Nitroglycerin (Nitrostat) 0.4 mg PO Q5MIN PRN PRN Reason: Chest Pain Ondansetron HCl (Zofran Odt) 4 mg PO Q6H PRN PRN Reason: Nausea/Vomiting Ondansetron HCl (Zofran) 4 mg IVP Q6H PRN PRN Reason: Nausea/Vomiting Pantoprazole Sodium (Protonix) 40 mg PO BID [facility] Last Admin: 09/27/17 20:06 Dose: 40 mg Polyethylene Glycol (Miralax) 17 gm PO HS [facility] Last Admin: 09/27/17 20:06 Dose: 17 gm Senna (Senokot) 2 tab PO HSPRN PRN PRN Reason: Constipation Sodium Chloride (Flush - Normal Saline) 10 ml IVF PRN PRN PRN Reason: Saline Flush Last Admin: 09/27/17 20:06 Dose: 10 ml
[2017-09-27] MEDS: ALPRAZolam 0.25 MG TAB PO PRN (21:48)
[2017-09-28] MEDS: Levothyroxine Sodium 75 MCG TAB PO SCH (06:00)
[2017-09-28] MEDS: Ubidecarenone 50 MG CAP PO SCH (08:44)
[2017-09-28] MEDS: Furosemide 40 MG TAB PO SCH (08:45)
[2017-09-28] MEDS: Losartan 25 MG TAB PO SCH (08:45)
[2017-09-28] MEDS: Amiodarone 200 MG TAB PO SCH ×3 (08:45→20:35)
[2017-09-28] MEDS: Ferrous Sulfate 325 MG TAB PO SCH ×2 (08:45→17:10)
[2017-09-28] MEDS: metFORMIN 500 MG TAB PO SCH ×2 (08:45→17:10)
[2017-09-28 12:44] LABS: #Eosinphils 0.7 thou/uL (0.0-0.7); #Lymphocytes 1.3 thou/uL (1.20-3.40); #Monocytes 0.6 thou/uL (0.11-0.59); #Neutrophils 5.4 thou/uL (1.40-6.50); %Basophils 0.4 % (0.0-1.0); %Eosinophils 8.8 % (0.0-10.0); %Lymphocytes 15.6 % (21.0-51.0); %Monocytes 7.5 % (0.0-10.0); %Neutrophils 67.6 % (42.0-75.0); Hemoglobin 9.3 g/dL (12.0-16.0); Mean Corpuscular HGB CONC 33.2 g/dL (32.0-36.0); Mean Corpuscular Hemoglobin 27.6 pg (27.0-31.0); Mean Corpuscular Volume 83.1 fL (78.0-98.0); Mean Platelet Volume 7.8 fL (7.4-10.4); Platelet Count 194 thou/uL (130-400); Red Blood Cell (RBC) Count 3.37 mill/uL (4.20-5.40)
--- NOTE | 2017-09-28 16:59 | PDOC.PN ---
- Subjective Encounter Start Date: 09/28/17 Encounter Start Time: 11:00 Subjective: pt up in bed no complains - Objective Resuscitation Status: Resuscitation Status FULL:Full Resuscitation Vital Signs & Weight: Vital Signs (12 hours) Temp Pulse Resp BP BP Pulse Ox 09/28/17 15:34 98.4 F 59 L 16 113/49 L 96 09/28/17 12:00 97.6 F 62 14 136/60 98 09/28/17 07:54 97.8 F 60 16 96 09/28/17 07:21 97.8 F 60 16 113/51 L 96 09/28/17 05:30 97.6 F 63 18 155/60 H 95 Weight Weight 159 lb 11.2 oz I&O: 09/27/17 09/28/17 09/29/17 06:59 06:59 06:59 Intake Total 960 2620 Output Total 800 2450 Balance 160 170 Result Diagrams: 09/28/17 12:35 09/24/17 11:09 Additional Labs: Accuchecks 09/28/17 09/28/17 09/28/17 11:16 05:34 01:05 POC Glucose 252 H 168 H 184 H 09/27/17 09/27/17 20:17 17:09 POC Glucose 192 H 191 H Phys Exam - Physical Examination HEENT: PERRLA, moist MMs, sclera anicteric, TM's clear, oral pharynx no lesions , 2+ tonsils Neck: no nodes, no JVD, supple, full ROM Respiratory: no wheezing, no rales, no rhonchi, wheezing present, clear to auscultation bilateral Cardiovascular: RRR, no significant murmur, no rub, gallop, irregular Gastrointestinal: soft, non-tender, no distention, positive bowel sounds Dx/Plan (1) Chest pain Code(s): R07.9 - CHEST PAIN, UNSPECIFIED Status: Acute Qualifiers: Chest pain type: unspecified Qualified Code(s): R07.9 - Chest pain, unspecified (2) Atrial flutter Code(s): I48.92 - UNSPECIFIED ATRIAL FLUTTER Status: Resolved Comment: s/p ablation one month ago (3) Diabetes type 2, controlled Code(s): E11.9 - TYPE 2 DIABETES MELLITUS WITHOUT COMPLICATIONS Status: Chronic Qualifiers: Diabetes mellitus residential insulin use: with residential use Diabetes mellitus complication status: without complication Qualified Code(s): E11.9 - Type 2 diabetes mellitus without complications; 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 Review of Systems - Review of Systems Respiratory: negative: Cough, Dry, Shortness of Breath, Hemoptysis, SOB with Excertion, Pleuritic Pain, Sputum, Wheezing Cardiovascular: negative: chest pain, palpitations, orthopnea, paroxysmal nocturnal dyspnea, edema, light headedness, other Gastrointestinal: negative: Nausea, Vomiting, Abdominal Pain, Diarrhea, Constipation, Melena, Hematochezia, Other - Medications/Allergies Allergies/Adverse Reactions: Allergies Allergy/AdvReac Type Severity Reaction Status Date / Time nitrofurantoin Allergy SEIZURE Verified 07/29/16 14:05 penicillin V Allergy Rash Verified 04/23/16 01:26 Penicillins Allergy Rash Verified 04/23/16 01:26 pentazocine Allergy HALLUCINATI Verified 07/29/16 14:05 ONS pentazocine lactate Allergy Verified 04/23/16 01:26 [From Elizabeth] MYCINS Allergy SEIZURE Uncoded 07/29/16 14:05 Medications: Current Medications Acetaminophen (Tylenol) 650 mg PO Q4H PRN PRN Reason: Headache/Fever or Pain Al Hydroxide/Mg Hydroxide (Maalox) 30 ml PO Q6H PRN PRN Reason: Heartburn or Indigestion Alprazolam (Xanax) 0.25 mg PO HSPRN PRN PRN Reason: Anxiety Last Admin: 09/27/17 21:48 Dose: 0.25 mg Amiodarone HCl (Cordarone) 400 mg PO TID [facility] Last Admin: 09/28/17 15:00 Dose: 400 mg Apixaban (Eliquis) 5 mg PO BID [facility] Aspirin (Aspirin Chewable) 81 mg PO DAILY [facility] Last Admin: 09/28/17 08:45 Dose: 81 mg Calcium Carbonate (Tums) 1,000 mg PO Q4H PRN PRN Reason: Heartburn or Indigestion Coenzyme Q10 (Coenzyme Q10) 200 mg PO DAILY [facility] Last Admin: 09/28/17 08:44 Dose: 200 mg Dextrose/Water (Dextrose 50%) 25 gm SLOW IVP PRN PRN PRN Reason: Hypoglycemia Ferrous Sulfate (Feosol) 325 mg PO BID-[facility] Last Admin: 09/28/17 08:45 Dose: 325 mg Furosemide (Lasix) 40 mg PO DAILY [facility] Last Admin: 09/28/17 08:45 Dose: 40 mg Glucagon (Glucagon) 1 mg IM PRN PRN PRN Reason: Hypoglycemia Dextrose/Water (D5w) 1,000 mls @ 0 mls/hr IV .Q0M PRN PRN Reason: Hypoglycemia Insulin Human Regular (Humulin R) 0 units SC .MILD SLIDING SCALE PRN PRN Reason: Mild Correctional Scale Last Admin: 09/26/17 11:36 Dose: 3 unit Insulin Human Regular (Humulin R) 0 units SC .BEDTIME SLIDING SC PRN PRN Reason: Bedtime Correctional Scale Labetalol HCl (Normodyne) 10 mg SLOW IVP Q4H PRN PRN Reason: Systolic BP > 180 Levothyroxine Sodium (Synthroid) 75 mcg PO 0600 [facility] Last Admin: 09/28/17 06:00 Dose: 75 mcg Losartan Potassium (Cozaar) 50 mg PO DAILY [facility] Last Admin: 09/28/17 08:45 Dose: 50 mg Magnesium Hydroxide (Milk Of Magnesium) 30 ml PO DAILYPRN PRN PRN Reason: Constipation Metformin HCl (Glucophage) 500 mg PO QAM-[facility] Last Admin: 09/28/17 08:45 Dose: 500 mg Metformin HCl (Glucophage) 1,000 mg PO QPM-[facility] Last Admin: 09/27/17 17:09 Dose: 500 mg Nitroglycerin (Nitrostat) 0.4 mg PO Q5MIN PRN PRN Reason: Chest Pain Ondansetron HCl (Zofran Odt) 4 mg PO Q6H PRN PRN Reason: Nausea/Vomiting Ondansetron HCl (Zofran) 4 mg IVP Q6H PRN PRN Reason: Nausea/Vomiting Pantoprazole Sodium (Protonix) 40 mg PO BID [facility] Last Admin: 09/28/17 08:45 Dose: 40 mg Polyethylene Glycol (Miralax) 17 gm PO [facility] Last Admin: 09/27/17 20:06 Dose: 17 gm Senna (Senokot) 2 tab PO HSPRN PRN PRN Reason: Constipation Sodium Chloride (Flush - Normal Saline) 10 ml IVF PRN PRN PRN Reason: Saline Flush Last Admin: 09/27/17 20:06 Dose: 10 ml
--- NOTE | 2017-09-28 19:55 | PDOC.CTH ---
Cardiology Progress Note - Subjective Doing well. No new issues. - Objective Vital Signs Temp Pulse Resp BP Pulse Ox 09/28/17 15:34 98.4 F 59 L 16 113/49 L 96 09/28/17 12:00 97.6 F 62 14 136/60 98 Weight 159 lb 11.2 oz 09/27/17 09/28/17 09/29/17 06:59 06:59 06:59 Intake Total 960 2620 2000 Output Total 800 2450 1800 Balance 160 170 200 - Physical Examination General/Neuro: alert & oriented x3, NAD Neck: no JVD present Lungs: CTA, unlabored respirations Heart: RRR Abdomen: NT/ND Extremities: other: (no edema.) - Telemetry Telemetry Rhythm: NSR - Labs Result Diagrams: 09/28/17 12:35 09/24/17 11:09 Troponin/CKMB CK-MB (CK-2) 0.6 ng/mL (0-6.6) 09/23/17 17:52 Troponin I Less than 0.010 ng/mL (< 0.028) 09/23/17 20:27 - Assessment/Plan 1. Recurrent atrial flutter. 2. Sypmtomatic anemia on Xarelto 3. Possible GI bleed. 4. 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 5. T2DM 6. HTN 7. HLP. PLAN: - Will re challenge with Eliquis. If Hgb stable tomorrow may be discharge but will need close follow up Hgb levels. - Dr. Mccormick will follow tomorrow.
[2017-09-28] MEDS: Polyethylene Glycol 3350 17 GM Packet PO SCH (20:35)
[2017-09-28] MEDS ORDERED: Apixaban 5 MG TAB PO SCH (21:00)
[2017-09-29] MEDS: Levothyroxine Sodium 75 MCG TAB PO SCH (05:14)
[2017-09-29 05:34] LABS: #Basophils 0.1 thou/uL (0.0-0.2); #Lymphocytes 1.7 thou/uL (1.20-3.40); #Monocytes 0.7 thou/uL (0.11-0.59); %Basophils 0.7 % (0.0-1.0); %Eosinophils 12.4 % (0.0-10.0); %Lymphocytes 19.8 % (21.0-51.0); %Monocytes 8.4 % (0.0-10.0); %Neutrophils 58.8 % (42.0-75.0); Hemoglobin 8.8 g/dL (12.0-16.0); Mean Corpuscular HGB CONC 33.3 g/dL (32.0-36.0); Mean Corpuscular Volume 83.9 fL (78.0-98.0); Mean Platelet Volume 8.1 fL (7.4-10.4); Platelet Count 191 thou/uL (130-400); RBC Distribution Width 14.2 % (11.5-14.5); Red Blood Cell (RBC) Count 3.13 mill/uL (4.20-5.40); White Blood Cell (WBC) Count 8.4 thou/uL (4.8-10.8)
[2017-09-29 05:42] LABS: Anion Gap 14 mmol/L (10-20); BUN (Urea Nitrogen) 27 mg/dL (9.8-20.1); Calc. Creatinine Clearance 44 mL/min (70-130); Calcium 9.3 mg/dL (7.8-10.44); Carbon Dioxide 26 mmol/L (23-31); Chloride 101 mmol/L (98-107); Estimated GFR-MDRD 47; Glucose 161 mg/dL (83-110); Potassium 4.4 mmol/L (3.5-5.1); Sodium 137 mmol/L (136-145)
[2017-09-29] MEDS ORDERED: Apixaban 2.5 MG TAB PO SCH (09:00)
--- NOTE | 2017-09-29 09:15 | CON ---
DATE OF CONSULTATION: 09/26/2017 REFERRING PHYSICIAN: Dr. Marquis Mccormick. REASON FOR CONSULTATION: Atrial fibrillation and anemia with oral anticoagulation. HISTORY OF PRESENT ILLNESS: Ms. Pearson is a very pleasant woman, well known to our [facility] for management of atrial flutter. In the past, she has required GIA guided cardioversion in 03/2016 . She has not had any ablations performed. She has a history of GI bleed, but had been cleared by G I to resume oral anticoagulation. She was placed on Xarelto 20 mg daily and since that time, she has not had any overt bleeding, other than the occasional nosebleed. That being said, she had developed slowly progressive shortness of breath, weakness, and occasionally atypical chest pain that was wors e with palpation. She was found to be anemic and was sent to the emergency room for further evaluati on and arrhythmia management. She has experienced recurrence of her atypical atrial flutter. Cardio logy, Dr. Mccormick also sees her and started her on amiodarone for arrhythmia suppression. Her Xarel to is being held, but has been fairly stable and she has not required a transfusion. Today, Ms. Pearson is feeling well. She denies any heart racing, palpitations, chest pain, pressure, syncope, near syncope or stroke like symptoms. Other than her increasing fatigue and shortness of br eath with associated weakness, she is without concern or complaint today. She denies any blood in he r stool, blood in her urine. REVIEW OF SYSTEMS: Twelve point review of systems was conducted and is negative except that listed a angela in the HPI. PAST MEDICAL HISTORY: 1. Atypical atrial flutter, status post GIA guided cardioversion on 04/01/2016. 2. History of mitral valve disease and coronary artery disease. 2. A. Three-vessel coronary artery bypass grafting on 11/12/2000. 2. B. Mitral valve replacement with a 29 Ray II bioprosthesis and a redo bypass x1 of the dista l RCA on 07/16/2017. 3. Myocardial infarction in 2001. A. Normal systolic function by GIA on 04/01/2016. 4. Dyslipidemia. 5. Diabetes. 6. Hypertension. 7. Elevated CHADS-VASc score of 5, on the basis of advanced age, female gender, hypertension and edwin betes, previously on Xarelto. 8. History of GI bleed . ALLERGIES: NITROFURANTOIN, TETRACYCLINE, PENTAZOCINE LACTATE, PENICILLIN and TETRAVALENT VACCINE. HOME MEDICATIONS: Xanax 0.5 mg as needed, aspirin 81 mg daily, Xarelto 20 mg q.p.m., furosemide 40 m g q.a.m., Prevacid 15 mg b.i.d., Synthroid 75 mcg daily, losartan 50 mg daily, metformin 1000 mg q.p. m. and 500 mg q.a.m., MiraLax and CoQ10 daily, Repatha q. 2 weeks. SOCIAL HISTORY: . Remote history of tobacco use, but nothing currently. Negative for alcoho l use. FAMILY HISTORY: Positive for myocardial infarction. Negative for early onset coronary artery diseas e or sudden cardiac . PHYSICAL EXAMINATION: VITAL SIGNS: Most recent vital signs; 98 degrees, pulse 77, blood pressure 154/63, respirations 20, oxygen is 96% on 2 liters nasal cannula. GENERAL: This is a well-appearing, well-groomed female in no apparent distress. She is alert and or iented. Speech is clear. Affect is appropriate. NECK: Supple without jugular venous distention. HEENT: She is normocephalic and atraumatic. Sclerae are anicteric. EOMs are intact. Her oral muco sa is moist and pink with adequate dentition and thyroid is nonpalpable. LUNGS: Clear to auscultation bilaterally. Respirations are even and unlabored with good bilateral e xcursion. HEART: Rate is irregularly irregular with ventricular rate controlled. Her PMI is nondisplaced. EXTREMITIES: Warm and dry to touch without clubbing, cyanosis or edema. ABDOMEN: Soft and nontender without palpable masses and positive bowel sounds are noted throughout. Hepatojugular reflex is negative. NEUROLOGIC: Grossly intact and nonfocal and her gait is stable. DATABASE: Review of telemetry and EKG tracings reveal atypical atrial flutter with controlled ventri cular rate in the 70-90 beat per minute range. LABORATORY DATA: WBC 6.9, hemoglobin 8.6, hematocrit 25.9 and platelet count is 182. Chemistry: Cr eatinine 0.85. IMAGING DATA: Echocardiogram from 09/24/2017, LVEF 55%-60%, left atrium mildly dilated, bioprostheti c mitral valve, no mitral regurgitation, mitral stenosis present, mild tricuspid regurgitation, mildl y elevated PAP. IMPRESSION: 1. Recurrent atypical atrial flutter with controlled ventricular rate. 2. Anemia and probable gastrointestinal bleed with no obvious source. 3. Occasional nosebleed. 4. History of mitral valve replacement in 2001 and 2010, now with adequate function. 5. Coronary artery disease with prior stents and bypass grafting. 6. Oral anticoagulation on Xarelto, currently on hold for anemia and suspected gastrointestinal blee d. PLAN: 1. Agree with holding Xarelto. 2. Monitor hemoglobin and transfuse if hemoglobin is less than 8. 3. Continue amiodarone and we will need to taper instructions upon discharge. 4. Plan for outpatient GIA cardioversion. 5. Okay to discharge when approved by Dr. Mccormick. Thank you for allowing us to participate in the care of this patient.
[2017-09-29] MEDS: Ubidecarenone 50 MG CAP PO SCH (10:19)
[2017-09-29] MEDS: Losartan 25 MG TAB PO SCH (10:19)
[2017-09-29] MEDS: Furosemide 40 MG TAB PO SCH (10:20)
[2017-09-29] MEDS: Ferrous Sulfate 325 MG TAB PO SCH ×2 (10:20→17:42)
[2017-09-29] MEDS: Amiodarone 200 MG TAB PO SCH ×2 (10:20→16:23)
[2017-09-29] MEDS: metFORMIN 500 MG TAB PO SCH ×2 (10:20→17:42)
[2017-09-29] MEDS: Insulin Regular 300 UNITS/3 ML VIAL SC PRN (13:16)
[2017-09-29] MEDS: ALPRAZolam 0.25 MG TAB PO PRN (13:17)
[2017-09-29 16:51] VITALS: BP 130/63; TEMP 97.8
--- NOTE | 2017-09-30 08:50 | DIS ---
DATE OF ADMISSION: 09/23/2017 DATE OF DISCHARGE: 09/29/2017 DISCHARGE DIAGNOSES: As of the followin. Recurrent atrial flutter. 2. Symptomatic anemia, on Xarelto. 3. Possible gastrointestinal bleed. 4. Hypertension. 5. Diabetes. 6. Bioprosthetic mitral valve replacement done in 2010. HOSPITAL COURSE: The patient is a very pleasant 82-year-old female, who initially presented to the [facility] with complaints of chest pain. The patient also, at this time, was found to have a low H and H and was on Xarelto. Per history, the patient has been on Xarelto 3 times and has been taking on a nd off Xarelto due to bleeding issues. She has also had colonoscopy and EGDs, last one was done in , which did not show any acute bleeds. At this time, Cardiology and Electrophysiology were consul rimma. Patient also had an echocardiogram, which indicated EF of 55%-60%, which indicated also a biopr osthetic mitral valve, mild mitral regurgitation, mild tricuspid regurgitation. The patient was init ially started on amiodarone and heart rate was controlled. She is still currently in atrial fibrilla tion. RECOMMENDATION: I did speak with Cardiology, who recommended to just continue with 325 of aspirin fo r now and follow up with Cardiology and EP as an outpatient. Risk of stroke was discussed with the p atient in depth. The patient agrees and understands. I did initially start the patient on Eliquis s bert she has not been on Eliquis; however, she did drop her H and H slightly, and after speaking with the police radio dispatcher, we decided to put the patient on 325 of aspirin for now. There is a consideration for possible Watchman versus LARIAT procedure, if the patient continues to not tolerate anticoagulat ion. Patient currently will be discharged home. She will follow up with EP, Cardiology, and [facility]. PHYSICAL EXAMINATION: VITAL SIGNS: 98.0, 58, 14, 97 on 2 liters of oxygen. She is 124/59. GENERAL: She is awake, alert, oriented x3, does not appear in distress. CARDIOVASCULAR: S1 and S2 present, irregularly irregular. LUNGS: Clear to auscultation. No rhonchi or wheezes noted. ABDOMEN: Soft, nontender. Bowel sounds are present x2. EXTREMITIES: No edema. Pedal pulses are present x2. Again, she will be discharged home. Follow up with PCP and Cardiology as outpatient.
== END 2017-09-29 17:59 | disposition home or self-care (01) | DRG 309 ==
LOC: ERS 17:18 → 2SW 18:05 → OBSVTOIN 09-25 16:07 → 2NO 09-25 20:21
PROVIDERS: ADMIT Internal Medicine; ATTEND Internal Medicine
DX: I48.92 Unspecified atrial flutter (principal); K92.2 Gastrointestinal hemorrhage, unspecified; D64.9 Anemia, unspecified; I10 Essential (primary) hypertension; E11.9 Type 2 diabetes mellitus without complications; I08.1 Rheumatic disorders of both mitral and tricuspid valves; E78.5 Hyperlipidemia, unspecified; I25.10 Atherosclerotic heart disease of native coronary artery without angina pectoris; E03.9 Hypothyroidism, unspecified; D50.9 Iron deficiency anemia, unspecified; I48.91 Unspecified atrial fibrillation; E66.9 Obesity, unspecified; Z79.01 Long term (current) use of anticoagulants; Z95.2 Presence of prosthetic heart valve; Z95.5 Presence of coronary angioplasty implant and graft; Z86.711 Personal history of pulmonary embolism; Z87.891 Personal history of nicotine dependence; Z68.26 Body mass index [BMI] 26.0-26.9, adult
CPT/HCPCS: 36415; 36416; 80048; 80061; 82274; 82553; 82565; 83540; 83550; 85014; 85018; 85025; 85046; 93005; 93306; 94760; G8978-GP-CI; G8979-GP-CI; G8980-GP-CI; J1815

== ENCOUNTER 2017-10-29 15:25 | Observation (INO) | payer MEDICARE, OTHER ==
[2017-10-29 16:31] LABS: Troponin I Less than 0.010 ng/mL (< 0.028)
[2017-10-29] MEDS ORDERED: Nitroglycerin 0.4 MG TAB (25 Tab Bottle) PO PRN (18:55)
[2017-10-29] MEDS ORDERED: Senokot 8.6 MG TAB PO PRN (18:55)
[2017-10-29] MEDS ORDERED: Mag-Al 1200 mg/1200 mg/30 ML UDCUP PO PRN (18:55)
[2017-10-29] MEDS ORDERED: Milk Of Magnesia 30 ML UDCUP PO PRN (18:55)
[2017-10-29] MEDS ORDERED: Calcium Carbonate 500 MG ChewTAB PO PRN (18:55)
[2017-10-29] MEDS ORDERED: Acetaminophen 325 MG TAB PO PRN (18:55)
[2017-10-29] MEDS ORDERED: Dextrose 50% Abboject 50 ML SYRINGE SLOW IVP PRN (18:57)
[2017-10-29] MEDS ORDERED: hydrALAZINE 20 MG/ML VIAL SLOW IVP PRN (18:57)
[2017-10-29] MEDS ORDERED: Insulin Regular 300 UNITS/3 ML VIAL SC PRN ×2 (18:57)
[2017-10-29] MEDS ORDERED: Dextrose 5% in Water 1,000 ML IV PRN (18:57)
--- NOTE | 2017-10-29 19:11 | HP ---
DATE OF ADMISSION: 10/29/2017 PRIMARY CARE PHYSICIAN: Jose Tapia M.D. CHIEF COMPLAINT: Chest discomfort. HISTORY OF PRESENT ILLNESS: Patient is an 82-year-old female with coronary artery disease, status post CABG, atrial flutter, diabetes mellitus type 2, hypertension, and chronic respiratory failure, on home oxygen, presented to the emergency room with chest discomfort. Her last hospitalization at this facility was in September for recurrent atrial flutter. She is currently on amiodarone. The chest discomfort started around 10:00 a.m. while she was at home. It was under her left breast radiating to her back. It was aggravated by movement as well as deep breathing. It was sharp, moderate to severe in intensity and somewhat reproducible. No nausea, vomiting, diaphoresis, palpitations or syncope reported. She denies recent immobilization or travel. No fever, chills , cough, shortness of breath or wheezing reported. She initially presented to [place]. Her initial vital signs showed temperature 98.6, respiration 18, pulse rate of 58 with a blood pressure 128/45 with O2 saturation 95% on 2 liter nasal cannula. She received aspirin and 1 inch nitropatch was placed. PAST MEDICAL HISTORY: 1. Coronary artery disease, status post coronary artery bypass grafting. 2. Recent hospitalization for atrial flutter. 3. Chronic diastolic heart failure. 4. Hypertension. 5. History of mitral valve replacement. 6. History of pulmonary embolism in 2000. 7. History of coronary stent placement. 8. Chronic respiratory failure on home oxygen. 9. Hyperlipidemia. 10. Chronic anemia. 11. Gastroesophageal reflux disease. 12. Chronic kidney disease, stage 2. 13. Hypothyroidism. 14. Anxiety, depression. PAST SURGICAL HISTORY: 1. GIA cardioversions. 2. Cardiac catheterization with stent placement and CABG. 3. Bilateral cataract surgery. 4. Tonsillectomy. 5. Cholecystectomy. 6. Abdominal hysterectomy. ALLERGIES: Patient is allergic to PENICILLIN, NITROFURANTOIN and PENTAZOCINE. CURRENT HOME MEDICATIONS: Patient did not bring the list of medications. She is unable to recall all of her medications. She is currently on aspirin and amiodarone 1 tablet daily. She is not on any blood thinners due to GI bleeding in the past. FAMILY HISTORY: Positive for heart disease. SOCIAL HISTORY: She is a former smoker. She is FULL CODE and makes her own decision with the help of her family. She denies any alcohol or drug use. REVIEW OF SYSTEMS: The following complete review of systems was negative, unless otherwise mentioned in the HPI or below: Constitutional: Weight loss or gain, ability to conduct usual activities. Skin: Rash, itching. Eyes: Double vision, pain. ENT/Mouth: Nose bleeding, neck stiffness, pain, tenderness. Cardiovascular: Palpitations, dyspnea on exertion, orthopnea. Respiratory: Shortness of breath, wheezing, cough, hemoptysis, fever or night sweats. Gastrointestinal: Poor appetite, abdominal pain, heartburn, nausea, vomiting, constipation, or diarrhea. Genitourinary: Urgency, frequency, dysuria, nocturia. Musculoskeletal: Pain, swelling. Neurologic/Psychiatric: Anxiety, depression. Allergy/Immunologic: Skin rash, bleeding tendency. PHYSICAL EXAMINATION: VITAL SIGNS: As discussed above. GENERAL: An 82-year-old female in no significant distress while resting. HEENT: Head atraumatic, normocephalic. Sclerae are anicteric. Moist mucous membrane, no oral lesion. NECK: Supple, no JVD appreciated. No carotid bruit. LUNGS: Clear to auscultation bilaterally. HEART: S1, S2 present. Regular rate and rhythm. Healed midline scar from previous CABG, 2/6 systolic murmur over the mitral area. There was reproducible chest wall pain under her left breast. No skin rash noted. LUNGS: Clear to auscultation bilaterally, no wheezing, rales or rhonchi. ABDOMEN: Soft. Bowel sounds present, no rebound or guarding. EXTREMITIES: No edema or calf tenderness. NEUROLOGIC: Grossly nonfocal, moves all four extremities. PSYCHIATRY: Alert, awake, oriented x3. SKIN: Warm and dry. LYMPH NODES: No palpable lymph nodes in the neck. PERIPHERAL VASCULAR: Radial pulses palpable bilaterally. MUSCULOSKELETAL: No joint swelling or tenderness. LABORATORY FINDINGS: Troponins were negative. CBC showed WBC 8.6 with hemoglobin 10, hematocrit 32.7, platelet of 190. D-dimer was 0.3. Creatinine was 1.1 with BUN 25. Sodium 141, potassium 4.4, chloride 102, bicarbonate 29. TSH was normal last hospitalization. Chest x-ray by my review was negative for infiltrate or edema. It showed cardiomegaly. EKG by my review showed sinus bradycardia with first degree AV block with some nonspecific ST-T wave changes. IMPRESSION: 1. Chest discomfort, rule out acute coronary syndrome. Her chest pain is somewhat reproducible, worse on deep breathing. D-dimer is negative. 2. Coronary artery disease, status post stent placement and coronary artery bypass grafting. 3. Recent hospitalization for atrial flutter, currently in sinus rhythm, not a candidate for anticoagulation due to bleeding in the past. 4. Hypertension. 5. Diabetes mellitus type 2. 6. Chronic respiratory failure on home oxygen. 7. Hypothyroidism. 8. History of bioprosthetic mitral valve replacement. 9. Chronic anemia. 10. History of pulmonary embolism. 11. Hyperlipidemia. 12. Gastroesophageal reflux disease. 13. Chronic kidney disease, stage 2. 14. Anxiety and depression. PLAN: The patient will be monitored in the telemetry unit. Serial troponins will be obtained. We will resume her home medications once confirmed. We will discuss the plan of care with Dr. Mccormick. She recently had an echocardiogram at Dr. Mccormick's office. We will continue aspirin and amiodarone. We will start her on insulin sliding scale. Confirm other home medications. Plan of care was discussed with the patient in detail. She stated understanding. FAWAD
[2017-10-29 19:34] LABS: Troponin I Less than 0.010 ng/mL (< 0.028)
[2017-10-29 19:41] VITALS: BMI 26.4
[2017-10-29] MEDS ORDERED: traMADol HCl 50 MG TAB PO PRN (21:05)
[2017-10-29] MEDS ORDERED: ALPRAZolam 0.5 MG TAB PO SCH (21:15)
[2017-10-29] MEDS ORDERED: Polyethylene Glycol 3350 17 GM Packet PO SCH (21:15)
[2017-10-29] MEDS: Losartan 25 MG TAB PO SCH (23:13)
[2017-10-30] MEDS ORDERED: Levothyroxine Sodium 75 MCG TAB PO SCH (06:00)
[2017-10-30 08:03] VITALS: BP 126/56; TEMP 97.6
[2017-10-30] MEDS: Losartan 25 MG TAB PO SCH (08:58)
[2017-10-30] MEDS ORDERED: Amiodarone 200 MG TAB PO SCH (09:00)
[2017-10-30] MEDS ORDERED: Aspirin 325 mg Enteric Coated Tablet PO SCH (09:00)
--- NOTE | 2017-10-30 14:30 | DIS ---
DATE OF DISCHARGE: 10/30/2017 DISCHARGE DISPOSITION: Home. FOLLOWUP: Follow up with primary care physician, Dr. Flores, in 1 week. Follow up with Cardiology, Dr. Mccormick, in 2-4 weeks. DISCHARGE MEDICATIONS: Flexeril as needed. All other home medications were left unchanged. The patient was seen and examined on the day of discharge. Denies any new complaints. BRIEF HOSPITAL COURSE: The patient is an 82-year-old female with coronary artery disease status post CABG, hypertension, and recent hospitalization for atrial flutter, presented to the hospital with ch est discomfort. Please refer to the history and physical for further details. The patient was admitted to the hospital with a diagnosis of chest discomfort, rule out acute coronar y syndrome. Serial troponins were negative. I discussed the case with Dr. Mccormick. The patient re cently had an echocardiogram at Dr. Mccormick's office. Dr. Mccormick recommended an outpatient follow up. Plan of care was discussed with the patient, she stated understanding. No changes in medication s were made. Flexeril was added since the pain was somewhat reproducible and worse on deep breathing . Please note that the D-dimer was negative. FINAL DIAGNOSES: 1. Atypical chest discomfort, acute coronary syndrome ruled out. 2. Coronary artery disease, status post stent placement and coronary artery bypass graft. 3. Recent hospitalization for atrial flutter. 4. Hypertension. 5. Diabetes mellitus type 2. 6. Chronic respiratory failure, on home oxygen. 7. Hypothyroidism. 8. History of bioprosthetic mitral valve replacement. 9. Chronic anemia. 10. History of pulmonary embolism. 11. Hyperlipidemia. 12. Gastroesophageal reflux disease. 13. Chronic kidney disease stage 2. 14. Anxiety and depression. 15. Plan of care was discussed with the patient in detail. She stated understanding.
[2017-10-30] MEDS ORDERED: Polyethylene Glycol 3350 17 GM Packet PO SCH (21:00)
[2017-10-30] MEDS ORDERED: ALPRAZolam 0.5 MG TAB PO SCH (21:00)
--- NOTE | 2017-11-08 11:17 | EKG ---
Test Reason : Blood Pressure : / mmHG Vent. Rate : 058 BPM Atrial Rate : 058 BPM P-R Int : 000 ms QRS Dur : 096 ms QT Int : 472 ms P-R-T Axes : 000 017 015 degrees QTc Int : 463 ms Sinus bradycardia with 1st degree A-V block Nonspecific ST and T wave abnormality Abnormal ECG Confirmed by RELL HERNANDEZ M.D. ([id number]), production editor CLEVE VALENCIA ([id number]) on 11/08/2017 11:17:01 AM Referred By: Confirmed By:RELL HERNANDEZ M.D.
== END 2017-10-30 11:38 | disposition home or self-care (01) ==
LOC: ERS 15:25 → 2SW 18:57
PROVIDERS: ADMIT Internal Medicine; ATTEND Internal Medicine
DX: R07.89 Other chest pain (principal); I25.10 Atherosclerotic heart disease of native coronary artery without angina pectoris; I13.0 Hypertensive heart and chronic kidney disease with heart failure and stage 1 through stage 4 chronic kidney disease, or unspecified chronic kidney disease; E11.22 Type 2 diabetes mellitus with diabetic chronic kidney disease; N18.2 Chronic kidney disease, stage 2 (mild); I50.32 Chronic diastolic (congestive) heart failure; D63.1 Anemia in chronic kidney disease; Z95.1 Presence of aortocoronary bypass graft; I48.92 Unspecified atrial flutter; J96.11 Chronic respiratory failure with hypoxia; E78.5 Hyperlipidemia, unspecified; K21.9 Gastro-esophageal reflux disease without esophagitis; E03.9 Hypothyroidism, unspecified; F41.8 Other specified anxiety disorders; Z87.891 Personal history of nicotine dependence; Z86.711 Personal history of pulmonary embolism; Z79.82 Long term (current) use of aspirin; Z79.84 Long term (current) use of oral hypoglycemic drugs; Z79.899 Other long term (current) drug therapy; Z88.0 Allergy status to penicillin; Z88.1 Allergy status to other antibiotic agents; Z88.8 Allergy status to other drugs, medicaments and biological substances; Z99.81 Dependence on supplemental oxygen; Z95.2 Presence of prosthetic heart valve; Z95.5 Presence of coronary angioplasty implant and graft
CPT/HCPCS: 82962 ×2; 84484; 93005; 94760 ×3; 99285; G0378; 36415; 36416; J2270

== ENCOUNTER 2018-02-20 18:54 | Inpatient (IN) | payer MEDICARE, OTHER ==
[~2018-02-20 18:54] MED LIST: Iopamidol 370 76% 100 ML VIAL ONE
--- NOTE | 2018-02-20 20:20 | CT ---
CT ANGIOGRAM CHEST WITH CONTRAST 02/20/18 HISTORY: Back pain, weakness, shortness of breath. COMPARISON: Radiograph same day. FINDINGS: CT angiogram chest performed after the intravenous administration of contrast. 3D rendering provided. The pulmonary trunk is mildly dilated measuring 32 mm. There is no proximal segmental pulmonary chikis rial filling defect. Heart size is enlarged. No pericardial effusion. There is reflux of contrast within the suprahepatic IVC and hepatic veins. No aneurysmal dilatation of the aorta. Prior CABG. There appears to be mass deep to the left and right serratus muscles. Neither is similar and may repr esent elastofibroma dorsi. This is unchanged from 2014. There is mild pulmonary edema. Trace effusions. No pneumothorax. IMPRESSION: 1. Cardiomegaly with pulmonary edema and small effusions suggesting congestive heart failure. Th ere is reflux of contrast within the suprahepatic IVC and hepatic veins suggesting diastolic dysfunct ion. 2. No proximal segmental pulmonary arterial filling defect. 3. Bilateral elastofibroma dorsi, benign findings. POS: HOME
[2018-02-20] MEDS ORDERED: Furosemide 40 MG/4 ML VIAL ONE (20:43)
[2018-02-20] MEDS ORDERED: Nitroglycerin 2% Ointment 1 INCH/1 GM Packet ONE (20:43)
[2018-02-20] MEDS ORDERED: Ondansetron PF 4 MG/2 ML Vial IVP PRN (23:09)
[2018-02-20] MEDS ORDERED: Ondansetron ODT 4 MG TAB SL PRN (23:09)
[2018-02-20] MEDS ORDERED: Furosemide 20 MG/2 ML VIAL ONE (23:55)
[2018-02-20] MEDS ORDERED: Nitroglycerin 2% Ointment 1 INCH/1 GM Packet TOP SCH (23:59)
[2018-02-21] MEDS ORDERED: Furosemide 20 MG/2 ML VIAL SLOW IVP SCH ×2 (00:15→14:45)
[2018-02-21 01:01] LABS: Actual Bicarbonate (HCO3a) 25.5 mEq/L (22-28); Analyzer IN Cardio ER; CO2 Tension 39.9 mmHg (35.0-45.0); Calcium, Ionized 1.14 mmol/L (1.12-1.30); Carboxyhemoglobin (COHb) 0.3 gm% (0.0-3.0); Hemoglobin (Hb) 9.9 g/dL (12.0-16.0); O2 Tension (PaO2) 292.2 mmHg (> 60.0); Potassium - ABG Lab 4.27 mmol/L (3.70-5.30); pH, Arterial 7.42 (7.35-7.45)
[2018-02-21 01:03] LABS: ALV-art Gradient 370.925 (0-20); Puncture Site LRA
[2018-02-21] MEDS ORDERED: Acetaminophen 325 MG TAB PO PRN (01:33)
[2018-02-21] MEDS ORDERED: Senokot S 8.6-50 MG TAB PO PRN (01:33)
[2018-02-21] MEDS ORDERED: Dextrose 5% in Water 1,000 ML IV PRN (01:36)
[2018-02-21] MEDS ORDERED: Dextrose 50% Abboject 50 ML SYRINGE SLOW IVP PRN (01:36)
--- NOTE | 2018-02-21 02:39 | HP ---
PRIMARY CARE PROVIDER: Jose Flores MD CHIEF COMPLAINT: Generalized weakness. HISTORY OF PRESENT ILLNESS: Ms. Pearson is a pleasant 82-year-old lady who was seen at [facility] on February 21, 2018, following transfer from emergency room at [place]. She reports that she has chronic shortness of breath with exertion. She uses home oxygen. She sees Dr. Baca for Pulmonology and Dr. Mccormick for Cardiology. She was reportedly on furosemide 40 mg 2 times a day in the past. More recently , her furosemide dose was decreased to 40 mg daily. She reports doing well over the last several days. However, over the last couple of days, she had sudden onset of generalized weakness. She reports being unable to stand up. She denies any cough. She denies any fevers or chills. She denies any nausea or vomiting. She denies any abdominal pain. She presented to the emergency room at [place], where she was diagnosed with congestive heart failure exacerbation. She was also found to have elevated D- dimer. She was transferred to the Emergency Room at [facility]. Here, she had CT angiogram of the chest, which did not show any pulmonary embolism. She reports feeling better. REVIEW OF SYSTEMS: All other systems reviewed and found to be negative. PAST MEDICAL HISTORY: Coronary artery disease, status post coronary artery bypass graft; atrial flutter; chronic diastolic heart failure; hypertension; mitral valve replacement; pulmonary embolism; coronary artery stent placement; chronic respiratory failure, on home oxygen; dyslipidemia; chronic anemia; gastroesophageal reflux disease; chronic kidney disease, stage 2; hypothyroidism; anxiety; depression. PAST SURGICAL HISTORY: GIA cardioversion, cardiac catheterization with stent placement, coronary artery bypass graft, bilateral cataract surgery, tonsillectomy, cholecystectomy, abdominal hysterectomy. ALLERGIES: MACROBID, NONSTEROIDAL ANTI-INFLAMMATORY AGENTS, PENICILLIN, AND TALWIN. FAMILY HISTORY: Reports several family members with heart disease. SOCIAL HISTORY: Pt denies tobacco, alcohol or recreational drug use. CURRENT MEDICATIONS: 1. Aspirin 325 mg daily. 2. Metformin 500 mg 2 times a day. 3. Alprazolam 0.5 mg at bedtime. 4. Losartan 50 mg daily. 5. Prevacid 15 mg 2 times a day. 6. Albuterol 90 mcg inhalation every 4 hours as needed. 7. Coenzyme Q10 100 mg daily. 8. Lasix 40 mg daily. 9. Levothyroxine 75 mcg daily. 10. Crestor 10 mg daily. 11. Metoprolol tartrate 25 mg daily. 12. MiraLAX 17 g daily. 13. Hydrochlorothiazide 25 mg daily. 14. K-Dur 20 mEq daily. PHYSICAL EXAMINATION: GENERAL: On examination, Ms. Pearson is awake and alert, not in acute distress. VITAL SIGNS: Blood pressure is 126/62, pulse 78, respiratory rate 24. Oxygen saturation is 94% on 2 L/minute of oxygen as noted on finger pulse ox. She is afebrile. EYES: No scleral icterus, no conjunctival pallor. ENT: Moist mucosal membranes, no oropharyngeal tumor or exudates. NECK: Supple, nontender, trachea is midline. RESPIRATORY: Accessory muscles of breathing are active. Chest wall movements are symmetric bilaterally. Lung examination reveals bibasilar crackles. CARDIOVASCULAR: S1 and S2 are heard, irregular. Peripheral pulses palpable. No carotid bruit. No pericardial rub. ABDOMEN: Soft, nontender, bowel sounds heard. MUSCULOSKELETAL: Power is 5/5 in all four extremities. SKIN: No rashes or subcutaneous nodules. LYMPHATIC: No cervical lymphadenopathy. PSYCHIATRIC: Normal mood; normal affect; the patient is oriented to person, place, and time. LABORATORY DATA: Ms. Pearson' labs and investigations were reviewed. I reviewed her electrocardiogram, which shows atrial fibrillation, no ST changes to suggest an acute coronary syndrome. I also reviewed her chest x-ray, which I have showed pulmonary venous congestion. She also had CT angiogram of the chest, which showed cardiomegaly with pulmonary edema and small effusions suggesting congestive heart failure. She has reflux of contrast within the suprahepatic IVC and hepatic veins suggesting diastolic dysfunction. There was no proximal segmentary pulmonary arterial filling defect. She has bilateral elastofibroma dorsi, which is a benign finding. She has normal white count, normocytic anemia with hemoglobin 9.9, normal platelet count; normal sodium, normal potassium, elevated blood urea nitrogen of 31, elevated creatinine of 1.43, last known creatinine 1.32 on February 19, 2018, and 1.11 on October 29, 2017; unremarkable liver profile; normal troponin-I; elevated BNP of 193.7; and normal calcium. ASSESSMENT AND PLAN: Ms. Pearson is a pleasant 82-year-old lady who was seen at [facility] on February 21, 2018. Her problem list includes: 1. Acute on chronic hypoxic respiratory failure: Ms. Pearson is presenting with acute on chronic hypoxic respiratory failure, most likely secondary to congestive heart failure exacerbation, although a component of chronic obstructive pulmonary disease cannot be ruled out at this time. She will be admitted to the hospital for further management. 2. Acute on chronic diastolic congestive heart failure: [place] Heart [employer] Class III. She will be treated with intravenous diuretics. Cardiology Service will be consulted for optimization of heart failure medications. 3. Diabetes mellitus, type 2: We will start the patient on Accu-Cheks and insulin sliding scale. 4. Acute on chronic renal failure: We will monitor creatinine closely, since she is getting intravenous diuretics. We will hold nephrotoxic medications, losartan, and metformin. 5. Coronary artery disease: Appears to be stable, the patient denies any chest pain at this time. 6. Dyslipidemia: We will continue statin. 7. Hypothyroidism: We will continue Synthroid. Many thanks for allowing me to participate in your patient's care. Please feel free to contact me with any questions or concerns. LEVEL OF RISK: High. LEVEL OF COMPLEXITY: High. CODE STATUS: I attempted to have a code status discussion with the patient. She is agreeable to CPR and electric shocks as well as BiPAP treatment if needed. However, she wanted to discuss with her family members regarding intubation as well as code status before she made a final decision. She will let the medical team know. She is aware that by default she is full code unless she tells us otherwise. Job ID: [id number]
[2018-02-21] MEDS ORDERED: Nitroglycerin 2% Ointment 1 INCH/1 GM Packet TOP SCH (03:00)
[2018-02-21 03:52] LABS: #Eosinphils 0.6 thou/uL (0.0-0.7); #Monocytes 0.6 thou/uL (0.11-0.59); #Neutrophils 4.7 thou/uL (1.40-6.50); %Basophils 0.4 % (0.0-1.0); %Eosinophils 8.4 % (0.0-10.0); %Lymphocytes 13.9 % (21.0-51.0); %Monocytes 8.1 % (0.0-10.0); %Neutrophils 69.2 % (42.0-75.0); Hemoglobin 9.5 g/dL (12.0-16.0); Mean Corpuscular HGB CONC 30.8 g/dL (32.0-36.0); Mean Corpuscular Hemoglobin 24.8 pg (27.0-31.0); Mean Corpuscular Volume 80.4 fL (78.0-98.0); Mean Platelet Volume 8.7 fL (7.4-10.4); Platelet Count 179 thou/uL (130-400); RBC Distribution Width 15.8 % (11.5-14.5); Red Blood Cell (RBC) Count 3.84 mill/uL (4.20-5.40); White Blood Cell (WBC) Count 6.8 thou/uL (4.8-10.8)
[2018-02-21 04:12] LABS: Anion Gap 17 mmol/L (10-20); BUN (Urea Nitrogen) 31 mg/dL (9.8-20.1); Calc. Creatinine Clearance 33 mL/min (70-130); Calcium 9.5 mg/dL (7.8-10.44); Carbon Dioxide 27 mmol/L (23-31); Chloride 103 mmol/L (98-107); Estimated GFR-MDRD 36; Glucose 166 mg/dL (83-110); Potassium 4.3 mmol/L (3.5-5.1); Sodium 143 mmol/L (136-145)
[2018-02-21] MEDS ORDERED: Nitroglycerin 2% Ointment 1 INCH/1 GM Packet ONE (04:52)
[2018-02-21] MEDS ORDERED: Furosemide 40 MG/4 ML VIAL ONE (05:49)
[2018-02-21] MEDS ORDERED: Furosemide 40 MG/4 ML VIAL SLOW IVP SCH ×2 (06:00)
[2018-02-21] MEDS ORDERED: HumaLOG 300 UNITS/3 ML VIAL ONE (07:13)
[2018-02-21] MEDS ORDERED: Aspirin 325 MG TAB PO SCH (08:00)
[2018-02-21] MEDS ORDERED: Aspirin 325 MG TAB ONE (09:01)
[2018-02-21] MEDS: HumaLOG 300 UNITS/3 ML VIAL SC PRN (20:32)
[2018-02-21] MEDS: Polyethylene Glycol 3350 17 GM Packet PO SCH (20:32)
[2018-02-21] MEDS ORDERED: LANSOPRAZOLE 15 MG PO SCH (21:00)
--- NOTE | 2018-02-21 23:56 | CON ---
DATE OF CONSULTATION: 02/21/2018 CONSULTING PHYSICIAN: Hospitalist group. REASON FOR CONSULTATION: Hypoxic respiratory failure. HISTORY OF PRESENT ILLNESS: An 82-year-old female, who was brought in last night with severe shortness of breath. She responded to diuretics and did not need to be intubated and she is improved over the day. Right now, she has no complaints. PAST MEDICAL HISTORY: 1. Chronic obstructive pulmonary disease. 2. Diastolic cardiac dysfunction. 3. Coronary artery disease. 4. Hypertension. 5. Mitral valve replacement. 6. Pulmonary embolism. 7. Hyperlipidemia. 8. Gastroesophageal reflux. 9. Chronic kidney disease stage 2. 10. Hypothyroidism for anxiety. 11. Depression. PAST SURGICAL HISTORY: 1. GIA, cardioversion. 2. Cardiac catheterization with stent placed. 3. Coronary artery bypass grafting surgery. 4. Bilateral cataract surgery. 5. Tonsillectomy. 6. Cholecystectomy. 7. Abdominal hysterectomy. ALLERGIES: 1. MACROBID. 2. NONSTEROIDAL ANTI-INFLAMMATORY MEDICATION. 3. PENICILLIN. 4. TALWIN. FAMILY MEDICAL HISTORY: Remarkable for heart disease. MEDICATIONS: Medications prior to admission; these were reviewed, see chart. REVIEW OF SYSTEMS: A 12-point review of systems is otherwise negative. PHYSICAL EXAMINATION: VITAL SIGNS: Temperature 97.9, pulse 56, respirations 20, O2 saturation 92% on 3 L, and blood pressure 120/56. HEENT: Unremarkable. NECK: No adenopathy. No JVD. LUNGS: Clear without wheezing or rhonchi. CARDIAC: S1 and S2 regular without murmur. ABDOMEN: Soft and nontender. EXTREMITIES: No clubbing, cyanosis, or edema. DIAGNOSTIC DATA: CT pulmonary angiogram showed cardiomegaly with pulmonary edema and small effusions. There is no evidence of pulmonary emboli. ASSESSMENT: 1. Acute diastolic congestive heart failure. 2. Stable chronic obstructive pulmonary disease. 3. Resolved hypoxic respiratory failure. PLAN: Continue cardiac treatment with intravenous Lasix as you are doing. Her COPD is stable, nebulization treatments. I do not think she will require a hospitalization for very long. Job ID: [id number]
--- NOTE | 2018-02-22 00:55 | CON ---
DATE OF CONSULTATION: PRIMARY CARE DOCTOR: Jose Flores MD PRIMARY BOWLING [employer]TERS INSTALLER: Marquis Mccormick MD REASON FOR CARDIOLOGY CONSULTATION: Hypoxic respiratory failure and CHF exacerbation. HISTORY OF PRESENT ILLNESS: Ms. Pearson is an 82-year-old female with a significant history Of congestive heart failure, coronary artery disease with status post CABG, status post bioprosthetic mitral valve replacement, chronic respiratory failure, and diabetes type 2. Before Thanksgi, the patient started feeling weakness and burning-like sensation to the bilateral lower extremities, and she started feeling short winded. Last Friday, 2 days ago, she started feeling worsening of weakness. The patient's shortness of breath is getting worse. The patient presented to the emergency department at [facility] and then the patient was transferred to [place], [place] for further evaluation and treatment. After the patient received Lasix at the ER, the patient stated that the patient's breathing status has improved dramatically. The patient underwent CABG x3 in 2000 with SABA to LAD, SVG to OM, and SVG to distal right coronary arteries. Two days later, the patient developed pulmonary emboli and the patient underwent IVC filter placement. She underwent bioprosthetic mitral valve replacement times twice. The patient's last echocardiogram was done in September 2017, which showed EF 55% to 60%, mildly dilated LA and bioprosthetic mitral valve replacement. No mitral valve regurgitation and no mitral valve stenosis present. There is mild tricuspid regurgitation and mildly elevated pulmonary artery deep pressure. The patient underwent carotid Doppler study showed no significant stenosis in bilateral internal carotid arteries, atrial fib and atrial flutter. She used to be on Xarelto, but discontinued in September 2017 due to multiple GI bleeds. The patient is on aspirin at this moment. PAST MEDICAL HISTORY: 1. Coronary artery disease, status post CABG x3 in 2000. 2. Atrial flutter. 3. Chronic diastolic congestive heart failure. 4. Hypertension. 5. Mitral valve regurgitation. 6. Pulmonary embolism in 2000 status post CABG. 7. Stent placement. 8. Chronic respiratory failure with home oxygen. 9. Hyperlipidemia. 10. Chronic anemia. 11. GERD. 12. Chronic kidney disease stage 2. 13. Hypothyroidism. 14. Anxiety and depression. PAST SURGICAL HISTORY: 1. GIA and cardioversion. 2. Cardiac cath with stent placement. 3. CABG in 2000. 4. Bilateral cataract surgery. 5. Tonsillectomy. 6. Cholecystectomy. 7. Hysterectomy. FAMILY HISTORY: The patient's mother and father have cardiac related medical history and the patient's mother has a history of diabetes. The patient's sister does not have anything. SOCIAL HISTORY: She is a . She lives by herself at this moment, but her son lives next door. She has 2 sons who live well. The patient used to smoke half a pack a day, but she quit about 50 years ago. She denies EtOH or illicit drug abuse. She does not have a regular exercise. She drinks tea once a while. She denied coffee or soda intake. ALLERGIES: SHE IS ALLERGIC TO; 1. PENICILLIN. 2. TALWIN. 3. MACROBID. 4. ACHROMYCIN. MEDICATIONS: 1. Lasix 40 mg once a day. 2. Metformin 500 mg twice a day. 3. MiraLAX 17 g once a day. 4. Ventolin as needed. 5. Prevacid once a day. 6. Amiodarone 200 mg once a day. 7. Synthroid 75 mcg once a day. 8. Flonase as needed. 9. DuoNeb once a day. 10. Cozaar 50 mg once a day. 11. Praluent 150 subcu every 2 weeks. 12. Aspirin 81 mg once a day. 13. Co Q10 once a day. REVIEW OF SYSTEMS: The patient's review of systems is negative unless otherwise mentioned in the HPI. PHYSICAL EXAMINATION: VITAL SIGNS: Blood pressure 120/56, temperature 97.9, pulse is 56, Afib and Atrial flutter, respiratory rate 20, O2 saturation 98% on 3 L nasal cannula. GENERAL: The patient is alert and oriented x4, not in acute distress. HEENT: Head is normocephalic, atraumatic. Eyes; extraocular muscle movements are intact. ENT and mouth; oral and nasal mucosa moist without lesions. RESPIRATORY: Clear to auscultate, but very diminished in bilateral lung lobes. CARDIOVASCULAR: Irregularly irregular. No S3 or S4. No significant murmurs, heaves, or thrill noted. Carotid pulses are present without bruits or thrill. 2+ pulses in bilateral upper and lower extremities. No edema. ABDOMEN: Soft and nontender. No mass to palpitate. Bowel sounds are present. SKIN: Warm and dry. No rash, lesion, or hematoma. MUSCULOSKELETAL: The patient is able to move all extremities. The patient denied claudication. PSYCHIATRIC: The patient's mood is appropriate. NEUROLOGIC: The patient is alert and oriented x4. Nonfocal. LABORATORY DATA: WBC 6.8, hemoglobin 9.5, hematocrit 30.9, and platelets 179. Sodium 143, potassium 4.3, BUN is 31, creatinine is 1.40. Glucose is 166. Troponin is negative. Calcium is 9.5. CTA to the chest and thoracic showed cardiomegaly with pulmonary edema and small effusions suggesting congestive heart failure and there is reflex contract within suprahepatic IVC and the hepatic veins suggest diastolic dysfunction, bilateral elastofibroma dorsi benign finding. ASSESSMENT AND PLAN: 1. Acute on chronic diastolic dysfunction. The patient's condition has been improved per patient after the patient started receiving Lasix IV push of 40 mg twice a day. She is on Cozaar 50 mg. she is on losartan 50 mg once a day. She is not on beta adri at this moment due to chronic respiratory failure. 2. Coronary artery disease with a history of coronary artery bypass graft x3 in 2000. The patient's condition is stable at this moment. Again, the patient is not on a beta adri due to a history of chronic respiratory failure, but she is on losartan and aspirin. She is not on statin because due to the side effects of the medication of myalgia. At home, she is on Praluent. 3. Chronic atrial fibrillation and atrial flutter. The patient's rate is well controlled at this moment. She is not on any antiarrhythmic medication at this moment and she is on aspirin 325 mg once a day. She is not on any other oral anticoagulants due to the history of multiple gastrointestinal bleeds. 4. History of bioprosthetic mitral valve replacement. The patient's last echocardiogram shows the valve function is normal. 5. Hypertension. The patient's blood pressure is stable at this moment. 6. Diabetes type 2, which is managed by primary care doctor. 7. Chronic anemia. The patient's condition is stable at this moment. No change from previous lab results. 8. Chronic respiratory failure with home oxygen. The patient's condition is stable at this moment. 9. Hypothyroidism. She is on levothyroxine. Thank you for allowing the Cardiology Service to participate in the care of this patient. We will follow along the patient's care team and make further recommendations as appropriate. Job ID: [id number]
[2018-02-22] MEDS: ALPRAZolam 0.5 MG TAB PO PRN ×2 (01:42→22:22)
--- NOTE | 2018-02-22 04:36 | CON ---
DATE OF CONSULTATION: 02/21/2018 INDICATION FOR CONSULTATION: An 82-year-old female with history of coronary artery disease, status post mitral valve replacement x2 with a history of COPD, who was admitted with CHF and respiratory decompensation, with CHF exacerbation as well as COPD exacerbation. She has been not feeling well for the last couple weeks. She has noticed she is becoming weaker and weaker. She got so weak. She was unable to even walk and her family brought her to the emergency room. She actually had to desaturate while in the emergency room and almost required intubation but since that time, has been on oxygen and has remained stable. She did have an echocardiogram in the office 3 to 4 months ago, and I will try to determine the ejection fraction and try to obtain those records. Apparently, she had been doing relatively well despite her multiple medical problems, but until she decompensated today, she has not yet required intubation and is feeling much better. She also has had a history of PEs in the past, but she is not having any evidence of PE on this admission. She has undergone a CT angiogram of the chest. Otherwise, she is doing much better. Her laboratory data did not show any indication that she had myocardial infarction. Her BNP was slightly elevated at 326. She does have also hyponatremia, which most likely is compatible with the use of diuretics. PAST MEDICAL HISTORY: She denies any chest pain. She only complains of shortness of breath. Her past medical history is significant for coronary artery disease. She has had bypass surgery. She has mitral valve replacement x2. History of atrial flutter. She has diastolic heart failure. Hypertension. She has history of pulmonary emboli in the past. She has a history of COPD and chronic respiratory failure. She has home O2. She has had a history of gastroesophageal reflux disease. She has chronic kidney disease. She has hypothyroidism, anxiety, and depression. PAST SURGICAL HISTORY: Significant for bilateral cataract surgery. She had abdominal hysterectomy, cholecystectomy, and tonsillectomy. She has had cardioversions in the past. ALLERGIES: SHE IS ALLERGIC TOG NONSTEROIDALS, MACROBID, PENICILLIN, AND TALWIN. PRESENT MEDICATIONS: For her present medications, please refer to the list of other medications from the nurse practitioner. FAMILY HISTORY: Please refer to other notes already dictated. PHYSICAL EXAMINATION: GENERAL: Reveals an elderly female, who is in no acute distress at this time and is breathing much better than when she arrived apparently. VITAL SIGNS: Her blood pressure is 108/58. She is afebrile. Heart rate is 97 to 114, respiratory rate is 18 to 24, and O2 saturation is 95%. HEENT: Reveals her head to be normocephalic and atraumatic. Carotid pulses are present. I cannot hear any significant bruits. CHEST: Decreased breath sounds throughout, but I do not hear any gross wheezing at this time. She has few bibasilar rales. CARDIOVASCULAR: Reveals an irregularly irregular rhythm. Heart rate is under reasonable control at this time. ABDOMEN: Soft and nontender. Positive bowel sounds are present. EXTREMITIES: Showed no clubbing or cyanosis. She did have some evidence of a previous trauma to the left ankle with some deformity of the ankle due to either ankle sprain or fracture. Pedal pulses are present. SKIN: Warm and dry. NEUROLOGIC: She appears to be intact without any gross focal neuro deficits otherwise. IMPRESSION: 1. Congestive heart failure exacerbation. We will continue on her diuretics. This is in combination with her chronic obstructive pulmonary disease and pulmonary disease with respiratory failure. Continue her oxygen at this time. 2. History of congestive heart failure, which is diastolic in nature. I will evaluate her most recent echocardiogram from the office for the systolic function. 3. Diabetes. Her blood sugar was somewhat elevated. We will leave this up to the discretion of the primary care physicians for treatment of her diabetes. 4. Coronary artery disease. She denies any chest pain. This appears to be stable at this time. 5. Acute on chronic renal insufficiency that appears to be stable at this time. Her blood pressure was 145/60, which was a relatively good control. LABORATORY DATA: Shows her hemoglobin was 9.5, and her blood sugars were poorly controlled. This afternoon or this evening, her blood sugar was 239. Earlier today, it was 182. Creatinine is 1.4, and sodium 143. At this time, we will continue her present medications. I have reviewed her medication list. Her sodium level was 143 and would not be due to overdiuresis. At this rate, we can increase her Lasix back to the previous dose. Prior to, she was on 40 b.i.d. and then as she was not having edema, she cut it back to once a day and she has also been trying to be compliant with diet and salt intake. We will be more than happy to continue to follow the patient with you during her hospital course and I believe most likely Dr. Mccormick will visit with her on Friday. Job ID: [id number]
[2018-02-22 05:26] LABS: #Eosinphils 0.7 thou/uL (0.0-0.7); #Lymphocytes 1.2 thou/uL (1.20-3.40); #Monocytes 0.8 thou/uL (0.11-0.59); #Neutrophils 3.5 thou/uL (1.40-6.50); %Basophils 0.1 % (0.0-1.0); %Eosinophils 11.3 % (0.0-10.0); %Lymphocytes 18.8 % (21.0-51.0); %Monocytes 12.5 % (0.0-10.0); %Neutrophils 57.2 % (42.0-75.0); Hemoglobin 9.1 g/dL (12.0-16.0); Mean Corpuscular Hemoglobin 24.6 pg (27.0-31.0); Mean Corpuscular Volume 79.4 fL (78.0-98.0); Platelet Count 153 thou/uL (130-400); RBC Distribution Width 15.9 % (11.5-14.5); Red Blood Cell (RBC) Count 3.69 mill/uL (4.20-5.40); White Blood Cell (WBC) Count 6.2 thou/uL (4.8-10.8)
[2018-02-22 05:49] LABS: Anion Gap 13 mmol/L (10-20); BUN (Urea Nitrogen) 34 mg/dL (9.8-20.1); Calc. Creatinine Clearance 36 mL/min (70-130); Calcium 9.1 mg/dL (7.8-10.44); Carbon Dioxide 28 mmol/L (23-31); Chloride 101 mmol/L (98-107); Estimated GFR-MDRD 41; Glucose 144 mg/dL (83-110); Magnesium 2.1 mg/dL (1.6-2.6); Potassium 4.2 mmol/L (3.5-5.1); Sodium 138 mmol/L (136-145)
[2018-02-22] MEDS: Levothyroxine Sodium 75 MCG TAB PO SCH (06:08)
[2018-02-22] MEDS: Losartan 25 MG TAB PO SCH (08:37)
[2018-02-22] MEDS: Aspirin 325 MG TAB PO SCH (08:37)
[2018-02-22] MEDS: Ubidecarenone 50 MG CAP PO SCH (08:38)
[2018-02-22] MEDS ORDERED: Non-Formulary Item 1 EACH (Ubidecarenone [Co Q-10] 200 MG) PO SCH (09:00)
[2018-02-22] MEDS ORDERED: Non-Formulary Item 1 EACH (Losartan Potassium [Cozaar] 50 MG) PO SCH (09:00)
[2018-02-22] MEDS ORDERED: Furosemide 40 MG/4 ML VIAL SLOW IVP SCH (09:00)
[2018-02-22] MEDS ORDERED: Fluticasone Propionate Nasal Spray 16 gm Bottle NASAL SCH (09:00)
[2018-02-22] MEDS: Fluticasone Propionate Nasal Spray 16 gm Bottle NASAL SCH (09:36)
--- NOTE | 2018-02-22 11:47 | PRG ---
DATE OF SERVICE: 02/22/2018 SUBJECTIVE: The patient is doing better, has less shortness of breath. OBJECTIVE: VITAL SIGNS: On exam, temperature is 97.7, pulse 65, respirations 16, O2 sat 96% on 2 L, and blood pressure 151/63. HEENT: Unremarkable. NECK: No JVD. LUNGS: Fairly clear anteriorly. CARDIAC: S1 and S2, regular. ABDOMEN: Soft. EXTREMITIES: Trace edema. LABORATORY DATA: White blood cell count 6.2, hematocrit 29.3, and platelet count 153. Sodium 138, potassium 4.2, chloride 101, CO2 of 28, BUN 34, creatinine 1.2, and glucose 144. ASSESSMENT: The patient presented with pulmonary edema secondary to acute diastolic heart failure. Her chronic obstructive pulmonary disease is stable. PLAN: She is nearing the point where she can be discharged home. She is continuing diuresis. Her pulmonary status is stable on her current inhalers. Job ID: [id number]
[2018-02-22] MEDS: HumaLOG 300 UNITS/3 ML VIAL SC PRN (12:46)
--- NOTE | 2018-02-22 16:05 | PDOC.CTH ---
Cardiology Progress Note - Subjective The pt seen and examined. No overnight events. No cardiac complaints. - Objective Vital Signs Temp Pulse Pulse Pulse Resp BP BP 02/22/18 12:48 74 86 110/76 148/59 H 02/22/18 12:16 97.6 F 58 L 16 02/22/18 08:31 97.7 F 65 16 BP Pulse Ox Pulse Ox Pulse Ox 02/22/18 12:48 95 96 02/22/18 12:16 136/61 98 02/22/18 08:31 151/63 H 96 Weight 166 lb 14.4 oz 02/21/18 02/22/18 02/23/18 06:59 06:59 06:59 Intake Total 300 Output Total 500 Balance -200 - Physical Examination General/Neuro: alert & oriented x3 Neck: no JVD present Lungs: CTA (diminished at bases) Heart: other: (irregular) Abdomen: soft Extremities: other: (No edema) Other PE findings: No edema - Telemetry Telemetry Rhythm: Afib 60s - Labs Result Diagrams: 02/22/18 04:48 02/23/18 04:34 Troponin/CKMB Troponin I Less than 0.010 ng/mL (< 0.028) 02/20/18 19:36 - Assessment/Plan 1. Acute on Chronic Diastolic HF - stable with Lasix 40mg IV qd, which will be changed to PO BID. On ARB, but not on Bblocker due to hx of COPD. 2. CAD with hx of CABG x3 in 2000 and stent placement - stable with ARB, ASA 325mg QD, and statin. Not on BBlocker due to hx of COPD. 3. Aflutter/Afib - Afib with well controlled HR today. On ASA 325mg qd for hx of multiple hx of GI bleed. 4. HTN - stable 5. DM type 2 - managed by PCP 6. CHRISTIANO on CKD - improving 7. COPD with Home O2 - stable 8. Chronic Anemia - no change 9. Hypothyroidism - on thyroid med MAR reviewed * Dr Mccormick's pt. * If she is doing well, she may d/c within 24-48 hrs. Pt. seen and eval. by me. I agree with the A/P by the BUDGET EXAMINER. Chest clear. IRRR, mild edema. Review of Systems - Review of Systems Constitutional: reports: no symptoms reported EENTM: reports: no symptoms reported Respiratory: reports: no symptoms reported Cardiac (ROS): reports: no symptoms reported ABD/GI: reports: no symptoms reported : reports: no symptoms reported Musculoskeletal: reports: no symptoms reported
--- NOTE | 2018-02-22 16:21 | PDOC.PN ---
- Subjective Encounter Start Date: 02/22/18 Encounter Start Time: 11:00 Patient seen and examined for CHF. SOB improving. Still gets SOB on mild-mod exertion. Intermittent coughing spells. No new complaints. No overnight events - Objective MAR Reviewed: Yes Vital Signs & Weight: Vital Signs (12 hours) Temp Pulse Pulse Pulse Resp BP BP 02/22/18 12:48 74 86 110/76 148/59 H 02/22/18 12:16 97.6 F 58 L 16 02/22/18 08:31 97.7 F 65 16 BP Pulse Ox Pulse Ox Pulse Ox 02/22/18 12:48 95 96 02/22/18 12:16 136/61 98 02/22/18 08:31 151/63 H 96 Weight Weight 166 lb 14.4 oz I&O: 02/21/18 02/22/18 02/23/18 06:59 06:59 06:59 Intake Total 300 Output Total 500 Balance -200 Result Diagrams: 02/22/18 04:48 02/22/18 04:48 Additional Labs: Accuchecks 02/22/18 02/22/18 02/21/18 11:17 05:44 23:40 POC Glucose 271 H 154 H 174 H 02/21/18 02/21/18 20:15 17:02 POC Glucose 239 H 182 H EKG Reviewed by me: Yes (Tele Afib) Phys Exam - Physical Examination Constitutional: NAD Respiratory: no wheezing, no rhonchi Bibasilar rales Cardiovascular: no rub, irregular Gastrointestinal: soft, non-tender, positive bowel sounds Musculoskeletal: no edema Neurological: moves all 4 limbs Psychiatric: A&O x 3 Dx/Plan (1) Acute and chronic respiratory failure with hypoxia Code(s): J96.21 - ACUTE AND CHRONIC RESPIRATORY FAILURE WITH HYPOXIA Status: Acute (2) Acute on chronic diastolic ACC/AHA stage C congestive heart failure Code(s): I50.33 - ACUTE ON CHRONIC DIASTOLIC (CONGESTIVE) HEART FAILURE Status : Acute (3) DM2 (diabetes mellitus, type 2) Status: Chronic Qualifiers: Chronic kidney disease stage: stage 3 (moderate) (4) CAD (coronary artery disease) Code(s): I25.10 - ATHSCL HEART DISEASE OF [place] CORONARY ARTERY W/O ANG PCTRS Status: Chronic (5) Other issues per previous notes Status: Acute - Plan DVT proph w/SCDs * Cont IV Lasix * DC Acuchecks/Sliding scale per patient req * Cont Losartan * Cont other meds as below * AM labs Review of Systems - Review of Systems Gastrointestinal: negative: Nausea, Vomiting, Abdominal Pain, Diarrhea, Constipation, Melena, Hematochezia, Other Genitourinary: negative: Dysuria, Frequency, Incontinence, Hematuria, Retention , Other - Medications/Allergies Allergies/Adverse Reactions: Allergies Allergy/AdvReac Type Severity Reaction Status Date / Time nitrofurantoin Allergy Rash Verified 02/20/18 23:32 penicillin V Allergy Rash Verified 02/20/18 23:32 Penicillins Allergy Rash Verified 02/20/18 23:32 pentazocine Allergy HALLUCINATI Verified 02/20/18 23:32 ONS pentazocine lactate Allergy Verified 02/20/18 23:32 [From Talwin] prednisone Allergy Verified 02/20/18 23:32 rivaroxaban [From Xarelto] Allergy Verified 02/20/18 23:32 Medications: Current Medications Acetaminophen (Tylenol) 650 mg PO Q4H PRN PRN Reason: Headache/Fever/Mild Pain (1-3) Albuterol/Ipratropium (Duoneb) 3 ml NEB Q6H PRN PRN Reason: SOB &/or Wheezing Alprazolam (Xanax) 0.5 mg PO HS PRN PRN Reason: Anxiety/Sleep/Spasm Last Admin: 02/22/18 01:42 Dose: 0.5 mg Aspirin (Aspirin) 325 mg PO DAILY [facility] Last Admin: 02/22/18 08:37 Dose: 325 mg Coenzyme Q10 (Coenzyme Q10) 200 mg PO DAILY [facility] Last Admin: 02/22/18 08:38 Dose: 200 mg Dextrose/Water (Dextrose 50%) 25 gm SLOW IVP PRN PRN PRN Reason: Hypoglycemia Fluticasone Propionate (Flonase Nasal [place]) 0 gm NASAL DAILY [facility] Last Admin: 02/22/18 09:36 Dose: 1 spr Furosemide (Lasix) 40 mg PO 0900,1400 [facility] Glucagon (Glucagon) 1 mg IM PRN PRN PRN Reason: Hypoglycemia Dextrose/Water (D5w) 1,000 mls @ 0 mls/hr IV .Q0M PRN PRN Reason: Hypoglycemia Levothyroxine Sodium (Synthroid) 75 mcg PO 0600 [facility] Last Admin: 02/22/18 06:08 Dose: 75 mcg Losartan Potassium (Cozaar) 50 mg PO DAILY [facility] Last Admin: 02/22/18 08:37 Dose: 50 mg Pantoprazole Sodium (Protonix) 40 mg PO DAILY [facility] Last Admin: 02/22/18 08:38 Dose: 40 mg Polyethylene Glycol (Miralax) 17 gm PO HS [facility] Last Admin: 02/21/18 20:32 Dose: 17 gm Senna/Docusate Sodium (Senokot S) 2 tab PO BID PRN PRN Reason: Constipation Sodium Chloride (Flush - Normal Saline) 10 ml IVF Q12HR [facility] Last Admin: 02/22/18 08:38 Dose: 10 ml Sodium Chloride (Flush - Normal Saline) 10 ml IVF PRN PRN PRN Reason: Saline Flush
[2018-02-22] MEDS: Polyethylene Glycol 3350 17 GM Packet PO SCH (22:21)
[2018-02-23] MEDS: Levothyroxine Sodium 75 MCG TAB PO SCH (05:11)
[2018-02-23 05:54] LABS: Anion Gap 13 mmol/L (10-20); BUN (Urea Nitrogen) 31 mg/dL (9.8-20.1); Calc. Creatinine Clearance 43 mL/min (70-130); Calcium 8.7 mg/dL (7.8-10.44); Carbon Dioxide 28 mmol/L (23-31); Chloride 99 mmol/L (98-107); Estimated GFR-MDRD 43; Glucose 128 mg/dL (83-110); Potassium 3.7 mmol/L (3.5-5.1); Sodium 136 mmol/L (136-145)
[2018-02-23] MEDS ORDERED: Furosemide 20 MG TAB PO SCH (09:00)
[2018-02-23] MEDS: Aspirin 325 MG TAB PO SCH (09:26)
[2018-02-23] MEDS: Losartan 25 MG TAB PO SCH (09:27)
[2018-02-23] MEDS: Ubidecarenone 50 MG CAP PO SCH (09:27)
[2018-02-23] MEDS: Fluticasone Propionate Nasal Spray 16 gm Bottle NASAL SCH (09:33)
[2018-02-23] MEDS ORDERED: Amiodarone 200 MG TAB PO SCH (10:00)
--- NOTE | 2018-02-23 10:40 | PRG ---
DATE OF SERVICE: 02/23/2018 SUBJECTIVE: The patient is feeling better, had no acute complaints. OBJECTIVE: VITAL SIGNS: Temperature 97.8, pulse 58, respirations 20, O2 saturation 95% on 2 L, blood pressure 124/59. HEENT: Unremarkable. NECK: No JVD. CHEST: Clear without wheezing or rhonchi. CARDIAC: S1 and S2. Regular. ABDOMEN: Soft. EXTREMITIES: No edema. LABORATORY DATA: Sodium 136, potassium 3.7, BUN 31, creatinine 1.1. ASSESSMENT: 1. Improved congestive heart failure. 2. Stable chronic obstructive pulmonary disease. PLAN: She is stable to go home from my standpoint. No further Pulmonary recommendations. We will sign off. Job ID: [id number]
--- NOTE | 2018-02-23 13:09 | PDOC.PN ---
- Subjective Encounter Start Date: 02/23/18 Encounter Start Time: 09:30 Patient seen and examined for CHF. SOB improving. Still has significant abd distention. No new complaints. No overnight events - Objective MAR Reviewed: Yes Vital Signs & Weight: Vital Signs (12 hours) Temp Pulse Resp BP Pulse Ox 02/23/18 08:58 97.8 F 58 L 20 124/59 L 95 02/23/18 03:33 97.5 F L 55 L 17 106/48 L 93 L Weight Weight 166 lb I&O: 02/22/18 02/23/18 02/24/18 06:59 06:59 06:59 Intake Total 300 1565.4 Output Total 500 975 Balance -200 590.4 Result Diagrams: 02/22/18 04:48 02/23/18 04:34 Additional Labs: Accuchecks 02/23/18 02/23/18 02/23/18 11:16 05:21 03:41 POC Glucose 203 H 138 H 143 H 02/22/18 02/22/18 02/21/18 20:29 16:59 05:05 POC Glucose 279 H 134 H 156 H 02/21/18 00:06 POC Glucose 198 H EKG Reviewed by me: Yes (Tele Afib) Phys Exam - Physical Examination Constitutional: NAD Respiratory: no wheezing, no rhonchi Cardiovascular: no rub, irregular Gastrointestinal: soft, non-tender, positive bowel sounds Musculoskeletal: no edema Neurological: moves all 4 limbs Dx/Plan (1) Acute and chronic respiratory failure with hypoxia Code(s): J96.21 - ACUTE AND CHRONIC RESPIRATORY FAILURE WITH HYPOXIA Status: Acute (2) Acute on chronic diastolic ACC/AHA stage C congestive heart failure Code(s): I50.33 - ACUTE ON CHRONIC DIASTOLIC (CONGESTIVE) HEART FAILURE Status : Acute (3) DM2 (diabetes mellitus, type 2) Status: Chronic Qualifiers: Chronic kidney disease stage: stage 3 (moderate) (4) CAD (coronary artery disease) Code(s): I25.10 - ATHSCL HEART DISEASE OF [place] CORONARY ARTERY W/O ANG PCTRS Status: Chronic (5) Other issues per previous notes Status: Acute - Plan DVT proph w/lovenox, DVT proph w/SCDs * Cont IV Lasix with fluid restriction * Cont Amiodarone/Losartan * AM labs * Cont other meds as below Review of Systems - Review of Systems Cardiovascular: negative: chest pain, palpitations, orthopnea, paroxysmal nocturnal dyspnea, edema, light headedness, other Gastrointestinal: negative: Nausea, Vomiting, Abdominal Pain, Diarrhea, Constipation, Melena, Hematochezia, Other - Medications/Allergies Allergies/Adverse Reactions: Allergies Allergy/AdvReac Type Severity Reaction Status Date / Time nitrofurantoin Allergy Rash Verified 02/20/18 23:32 penicillin V Allergy Rash Verified 02/20/18 23:32 Penicillins Allergy Rash Verified 02/20/18 23:32 pentazocine Allergy HALLUCINATI Verified 02/20/18 23:32 ONS pentazocine lactate Allergy Verified 02/20/18 23:32 [From Talwin] prednisone Allergy Verified 02/20/18 23:32 rivaroxaban [From Xarelto] Allergy Verified 02/20/18 23:32 Medications: Current Medications Acetaminophen (Tylenol) 650 mg PO Q4H PRN PRN Reason: Headache/Fever/Mild Pain (1-3) Last Admin: 02/23/18 05:11 Dose: 650 mg Albuterol/Ipratropium (Duoneb) 3 ml NEB Q6H PRN PRN Reason: SOB &/or Wheezing Alprazolam (Xanax) 0.5 mg PO HS PRN PRN Reason: Anxiety/Sleep/Spasm Last Admin: 02/22/18 22:22 Dose: 0.5 mg Amiodarone HCl (Cordarone) 200 mg PO DAILY [facility] Aspirin (Aspirin) 325 mg PO DAILY [facility] Last Admin: 02/23/18 09:26 Dose: 325 mg Coenzyme Q10 (Coenzyme Q10) 200 mg PO DAILY [facility] Last Admin: 02/23/18 09:27 Dose: 200 mg Dextrose/Water (Dextrose 50%) 25 gm SLOW IVP PRN PRN PRN Reason: Hypoglycemia Fluticasone Propionate (Flonase Nasal [place]) 0 gm NASAL DAILY [facility] Last Admin: 02/23/18 09:33 Dose: 1 spr Furosemide (Lasix) 40 mg SLOW IVP 0600,1400 [facility] Glucagon (Glucagon) 1 mg IM PRN PRN PRN Reason: Hypoglycemia Dextrose/Water (D5w) 1,000 mls @ 0 mls/hr IV .Q0M PRN PRN Reason: Hypoglycemia Levothyroxine Sodium (Synthroid) 75 mcg PO 0600 [facility] Last Admin: 02/23/18 05:11 Dose: 75 mcg Losartan Potassium (Cozaar) 50 mg PO DAILY [facility] Last Admin: 02/23/18 09:27 Dose: 50 mg Pantoprazole Sodium (Protonix) 40 mg PO DAILY [facility] Last Admin: 02/23/18 09:27 Dose: 40 mg Polyethylene Glycol (Miralax) 17 gm PO HS [facility] Last Admin: 02/22/18 22:21 Dose: 17 gm Senna/Docusate Sodium (Senokot S) 2 tab PO BID PRN PRN Reason: Constipation Sodium Chloride (Flush - Normal Saline) 10 ml IVF Q12HR [facility] Last Admin: 02/23/18 09:27 Dose: 10 ml Sodium Chloride (Flush - Normal Saline) 10 ml IVF PRN PRN PRN Reason: Saline Flush
[2018-02-23] MEDS ORDERED: Sodium Chloride 0.9% 10 ML ONE (13:18)
[2018-02-23] MEDS: Furosemide 40 MG/4 ML VIAL SLOW IVP SCH (14:11)
[2018-02-23] MEDS: metFORMIN 500 MG TAB PO SCH (18:28)
[2018-02-23] MEDS: ALPRAZolam 0.5 MG TAB PO PRN (22:10)
[2018-02-23] MEDS: Polyethylene Glycol 3350 17 GM Packet PO SCH (22:11)
[2018-02-24 05:27] LABS: Anion Gap 15 mmol/L (10-20); BUN (Urea Nitrogen) 33 mg/dL (9.8-20.1); Calc. Creatinine Clearance 43 mL/min (70-130); Calcium 8.7 mg/dL (7.8-10.44); Carbon Dioxide 27 mmol/L (23-31); Chloride 100 mmol/L (98-107); Estimated GFR-MDRD 42; Glucose 154 mg/dL (83-110); Potassium 3.8 mmol/L (3.5-5.1); Sodium 138 mmol/L (136-145)
[2018-02-24] MEDS: Furosemide 40 MG/4 ML VIAL SLOW IVP SCH ×2 (05:47→14:28)
[2018-02-24] MEDS: Levothyroxine Sodium 75 MCG TAB PO SCH (05:47)
--- NOTE | 2018-02-24 07:53 | RAD ---
FRONTAL RADIOGRAPH CHEST: Date: 02-24-18 Comparison: 02-20-18 History: Shortness of breath. FINDINGS: Stable midline sternotomy wires, mediastinal clips, and mechanical cardiac valves. Mild pulmonary vas cular congestion and prominence of cardiac silhouette with no pneumothorax, pleural fluid, focal cons olidation or alveolar edema. IMPRESSION: No acute findings. POS: [facility]
[2018-02-24] MEDS: metFORMIN 500 MG TAB PO SCH ×2 (08:31→19:42)
[2018-02-24] MEDS: Ubidecarenone 50 MG CAP PO SCH (08:31)
[2018-02-24] MEDS: Aspirin 325 MG TAB PO SCH (08:31)
[2018-02-24] MEDS: Losartan 25 MG TAB PO SCH (08:31)
[2018-02-24] MEDS: Fluticasone Propionate Nasal Spray 16 gm Bottle NASAL SCH (08:32)
[2018-02-24] MEDS: Amiodarone 200 MG TAB PO SCH (08:33)
--- NOTE | 2018-02-24 15:10 | PDOC.CTH ---
Cardiology Progress Note - Subjective EP PROGRESS NOTE:02/24/18 Seen as follow up for atrial arrhythmias and anticoagulation difficulties. No new cardiac concerns over night. Legs remain weak with any attempted ambulation. Family bedside. - Objective Vital Signs Temp Pulse Resp BP BP Pulse Ox 02/24/18 11:44 98.7 F 55 L 18 111/53 L 96 02/24/18 08:31 96 02/24/18 08:24 98.1 F 65 16 123/55 L 96 02/24/18 03:48 97.2 F L 73 17 132/58 L 95 Weight 172 lb 02/23/18 02/24/18 02/25/18 06:59 06:59 06:59 Intake Total 1565.4 1350 Output Total 975 2500 Balance 590.4 -1150 - Physical Examination General/Neuro: alert & oriented x3, NAD Neck: no JVD present Lungs: CTA, unlabored respirations Heart: PMI normal Abdomen: NT/ND, soft - Labs Result Diagrams: 02/22/18 04:48 02/24/18 04:31 Troponin/CKMB Troponin I Less than 0.010 ng/mL (< 0.028) 02/20/18 19:36 - Assessment/Plan 1.Atrial arrhythmias - atrial flutter dx 02/2016 - now atrial fibrillation and atrial tachycardia with slow VR - GIA/CV possibly tomorrow with Dr Glaser. 2. Bradycardia - seen with concurrent amiodarone therapy. May require PPM implant if stefany worsens. If CV fails, plan to DC amiodarone which may remove potential indication for PPM but raises other challenges with managing stroke risk with atrial arrhytmias 3.CHADS2-VASC: 6 ( age, gender, HTN, vascular disease, and diabetes) - recurrent anemia with suspected GIB while on Xarelto in past 2 years. - Previously on warfarin while treated for PE. No documented history of bleeding issues with warfarin - Per DC summary in 09/2017, Eliquis tried for 1 day in September with slight drop in H/H and then stopped in favor or ASA alone - Cannot get watchman unless anticoagulated temporarily - Lariat is a possibility Will continue to follow.
--- NOTE | 2018-02-24 18:32 | PDOC.PN ---
- Subjective Encounter Start Date: 02/24/18 Encounter Start Time: 08:30 Patient seen and examined for CHF. SOB improving. No CP/palpitations or syncope. No new complaints. No overnight events - Objective MAR Reviewed: Yes Vital Signs & Weight: Vital Signs (12 hours) Temp Pulse Pulse Pulse Resp BP BP 02/24/18 16:37 98.1 F 65 16 02/24/18 12:06 67 65 136/57 L 116/61 02/24/18 11:44 98.7 F 55 L 18 02/24/18 08:31 02/24/18 08:24 98.1 F 65 16 BP BP Pulse Ox Pulse Ox Pulse Ox 02/24/18 16:37 113/55 L 93 L 02/24/18 12:06 93 L 95 02/24/18 11:44 111/53 L 96 02/24/18 08:31 96 02/24/18 08:24 123/55 L 96 Weight Weight 172 lb I&O: 02/23/18 02/24/18 02/25/18 06:59 06:59 06:59 Intake Total 1565.4 1350 Output Total 975 2500 Balance 590.4 -1150 Result Diagrams: 02/22/18 04:48 02/24/18 04:31 Additional Labs: Accuchecks 02/24/18 16:53 POC Glucose 184 H Radiology Reviewed by me: Yes (CXR - pulm vas congestion) EKG Reviewed by me: Yes (Tele Afib/Aflutter) Phys Exam - Physical Examination Constitutional: NAD Respiratory: no wheezing, no rhonchi Cardiovascular: no rub, irregular Gastrointestinal: soft, non-tender, positive bowel sounds Musculoskeletal: no edema Neurological: moves all 4 limbs Dx/Plan (1) Acute and chronic respiratory failure with hypoxia Code(s): J96.21 - ACUTE AND CHRONIC RESPIRATORY FAILURE WITH HYPOXIA Status: Acute (2) Acute on chronic diastolic ACC/AHA stage C congestive heart failure Code(s): I50.33 - ACUTE ON CHRONIC DIASTOLIC (CONGESTIVE) HEART FAILURE Status : Acute (3) DM2 (diabetes mellitus, type 2) Status: Chronic Qualifiers: Chronic kidney disease stage: stage 3 (moderate) Comment: refusing insulin (4) CAD (coronary artery disease) Code(s): I25.10 - ATHSCL HEART DISEASE OF [place] CORONARY ARTERY W/O ANG PCTRS Status: Chronic (5) Other issues per previous notes Status: Acute - Plan cont current plan of care, out of bed/ambulate, DVT proph w/SCDs (No Lovenox due to GIB in the past) Cont diuretics -: Cont current meds as below -: GIA/CV in AM -: AM labs Review of Systems - Review of Systems Respiratory: negative: Cough, Dry, Shortness of Breath, Hemoptysis, SOB with Excertion, Pleuritic Pain, Sputum, Wheezing Cardiovascular: negative: chest pain, palpitations, orthopnea, paroxysmal nocturnal dyspnea, edema, light headedness, other Gastrointestinal: negative: Nausea, Vomiting, Abdominal Pain, Diarrhea, Constipation, Melena, Hematochezia, Other - Medications/Allergies Allergies/Adverse Reactions: Allergies Allergy/AdvReac Type Severity Reaction Status Date / Time nitrofurantoin Allergy Rash Verified 02/20/18 23:32 penicillin V Allergy Rash Verified 02/20/18 23:32 Penicillins Allergy Rash Verified 02/20/18 23:32 pentazocine Allergy HALLUCINATI Verified 02/20/18 23:32 ONS pentazocine lactate Allergy Verified 02/20/18 23:32 [From Talwin] prednisone Allergy Verified 02/20/18 23:32 rivaroxaban [From Xarelto] Allergy Verified 02/20/18 23:32 Medications: Current Medications Acetaminophen (Tylenol) 650 mg PO Q4H PRN PRN Reason: Headache/Fever/Mild Pain (1-3) Last Admin: 02/23/18 05:11 Dose: 650 mg Albuterol/Ipratropium (Duoneb) 3 ml NEB Q6H PRN PRN Reason: SOB &/or Wheezing Alprazolam (Xanax) 0.5 mg PO HS PRN PRN Reason: Anxiety/Sleep/Spasm Last Admin: 02/23/18 22:10 Dose: 0.5 mg Amiodarone HCl (Cordarone) 200 mg PO DAILY [facility] Last Admin: 02/24/18 08:33 Dose: Not Given Aspirin (Aspirin) 325 mg PO DAILY [facility] Last Admin: 02/24/18 08:31 Dose: 325 mg Coenzyme Q10 (Coenzyme Q10) 200 mg PO DAILY [facility] Last Admin: 02/24/18 08:31 Dose: 200 mg Dextrose/Water (Dextrose 50%) 25 gm SLOW IVP PRN PRN PRN Reason: Hypoglycemia Fluticasone Propionate (Flonase Nasal [place]) 0 gm NASAL DAILY [facility] Last Admin: 02/24/18 08:32 Dose: 1 spr Furosemide (Lasix) 40 mg SLOW IVP 0600,1400 [facility] Last Admin: 02/24/18 14:28 Dose: 40 mg Glucagon (Glucagon) 1 mg IM PRN PRN PRN Reason: Hypoglycemia Dextrose/Water (D5w) 1,000 mls @ 0 mls/hr IV .Q0M PRN PRN Reason: Hypoglycemia Levothyroxine Sodium (Synthroid) 75 mcg PO 0600 [facility] Last Admin: 02/24/18 05:47 Dose: 75 mcg Losartan Potassium (Cozaar) 50 mg PO DAILY [facility] Last Admin: 02/24/18 08:31 Dose: 50 mg Metformin HCl (Glucophage) 500 mg PO BID-[facility] Last Admin: 02/24/18 08:31 Dose: 500 mg Pantoprazole Sodium (Protonix) 40 mg PO DAILY [facility] Last Admin: 02/24/18 08:31 Dose: 40 mg Polyethylene Glycol (Miralax) 17 gm PO HS [facility] Last Admin: 02/23/18 22:11 Dose: 17 gm Senna/Docusate Sodium (Senokot S) 2 tab PO BID PRN PRN Reason: Constipation Sodium Chloride (Flush - Normal Saline) 10 ml IVF Q12HR [facility] Last Admin: 02/24/18 08:32 Dose: 10 ml Sodium Chloride (Flush - Normal Saline) 10 ml IVF PRN PRN PRN Reason: Saline Flush
[2018-02-24] MEDS: Polyethylene Glycol 3350 17 GM Packet PO SCH (20:40)
--- NOTE | 2018-02-24 21:42 | CON ---
DATE OF CONSULTATION: 02/23/2018 REFERRING PHYSICIAN: Humaira Beyer MD REASON FOR CONSULTATION: Atrial fibrillation and oral anticoagulation. HISTORY OF PRESENT ILLNESS: Ms. Pearson is a very pleasant 82-year-old woman, known to our [facility] for management of her atrial flutter and atrial fibrillation. She was initially diagnosed with atrial flutter in February 2016. At that time, she underwent GIA followed by electrical cardioversion. She was started on Xarelto for anticoagulation. In April 2016, she was admitted again for melena. Upper endoscopy studies revealed multiple gastric polyps. She was eventually cleared by Dr. Dave to resume oral anticoagulation. She had recurrent anemia and her Xarelto was discontinued. In July 2016, she underwent a colonoscopy which revealed small internal hemorrhoids and some polyps with polypectomy. While she was hospitalized in September 2017, there was additional concern for recurrent and possibly unfound GI bleed, and she has tried Xarelto multiple times in the past, so she was started on Eliquis, but did have a slight drop in her hematocrit and hemoglobin. It was discussed with Dr. Mccormick and it was decided to place her on aspirin 325 mg p.o. and suppress her atrial arrhythmias with amiodarone, considering the possibility of Watchman versus Lariat in the future if she is unable to tolerate anticoagulation. In the remote past, Ms. Pearson has had pulmonary embolism that was treated with Lovenox and warfarin, and no documentation of anemia issues are found with either of those agents by chart review. Additionally, she has an extensive history of coronary artery disease as well as a mitral valve replacement in 2001 and replacement of her bioprosthetic mitral valve in 2010. Ms. Pearson reports that she has not been feeling well for the past couple weeks with progressive weakness and eventually was unable to walk from room to room in her home. Her family brought her to the emergency room. She has a history of desaturation, what she presented with in the emergency room almost requiring intubation. An echocardiogram was performed revealing ejection fraction of 55% to 60%. There is no evidence of pulmonary embolism on this admission. She is currently resting in bed comfortably and denies any cardiac concerns or complaints. She does continue to endorse weakness of her extremities when she attempts to ambulate with limited success. She denies any heart racing, palpitations, chest pain, pressure, syncope, near syncope, stroke, or stroke-like symptoms. PAST MEDICAL HISTORY: 1. Atrial flutter and atrial fibrillation diagnosed in February 2016, initially as flutter, rate controlled, on amiodarone for suppression. 2. Coronary artery disease with bypass grafting in 2010. 3. Pulmonary embolism in 2000 immediately following bypass surgery. 4. Re-do coronary artery bypass with MVR in 07/2001 with re-do bioprosthetic mitral valve replacement in June of 2010. 5. Diabetes. 6. Hypertension. 7. Hyperlipidemia. 8. Former tobacco abuse. 9. Iron-deficiency anemia. 10. Oxygen dependence. 11. Hypothyroidism. 12. Obesity. 13. Recurrent GI bleed and intolerance to anticoagulation, mostly Xarelto and a short trial on Eliquis with slight hemoglobin drop. 14. Gastroesophageal reflux disease. 15. Chronic kidney disease. 16. COPD. 17. Chronic respiratory failure. 18. Diastolic heart failure. REVIEW OF SYSTEMS: A 12-point review of systems is conducted and is unremarkable except that listed above in HPI. ALLERGIES: NITROFURANTOIN, PENICILLIN V, ALL PENICILLINS, PENTAZOCINE, TALWIN, PREDNISONE, AND INTOLERANCE TO BLOOD THINNING MEDICATION (XARELTO). HOME MEDICATIONS: 1. Tylenol as needed. 2. DuoNeb q.6. 3. Xanax 0.5 as needed. 4. Amiodarone 200 mg daily. 5. Aspirin 325 mg daily. 6. CoQ10 200 mg daily. 7. Metformin 500 p.o. b.i.d. 8. Praluent 75 mg subcu. 9. Flonase daily. 10. MiraLAX 17 g daily. 11. Cozaar 50 mg daily. 12. Synthroid 75 mcg daily. 13. Lansoprazole 50 mg b.i.d. 14. Furosemide 40 mg daily. SOCIAL HISTORY: Strong family support. Denies alcohol, tobacco, or illicit drug use. FAMILY HISTORY: Denies family history of sudden cardiac or early-onset coronary artery disease, but positive for myocardial infarction. PHYSICAL EXAMINATION: VITAL SIGNS: Most recent vital signs, temperature 98.7, pulse 65, oxygen 93% on 2.5 L, blood pressure 125/60, respirations 14. GENERAL: Well-appearing, well-groomed, slightly overweight elderly woman, in no apparent distress. Speech is clear. Affect is appropriate. She is alert and oriented. NECK: Supple without jugular venous distention. Thyroid is nonpalpable. HEENT: Normocephalic, atraumatic. Sclerae anicteric. EOMs are intact. Oral mucosa is moist and pink with adequate dentition. Thyroid is nonpalpable. LUNGS: Clear to auscultation bilaterally. Respirations even and unlabored with bilateral excursion. CARDIOVASCULAR: Irregularly irregular with controlled ventricular rate. PMI is nondisplaced. EXTREMITIES: Warm and dry to touch without clubbing, cyanosis, or edema. ABDOMEN: Soft and nontender without palpable masses. Positive bowel sounds are noted throughout. Hepatojugular reflux is negative. NEUROLOGIC: Cranial nerves 2 to 12 is grossly intact and nonfocal. Gait was not assessed. DATABASE: EKG and telemetry reveal ongoing atrial fibrillation varying with atrial tachycardia and slow ventricular rate with variable AV conduction. Echocardiogram, ejection fraction 55% to 60%, normally functioning bioprosthetic mitral valve. Mild tricuspid regurgitation. IMPRESSION: 1. Atrial arrhythmias with prior atrial fibrillation, atrial flutter, suppressed with amiodarone. Now with atrial tachycardia and slow ventricular rates. 2. Anemia with history of gastrointestinal bleed and intolerant to multiple trials on Xarelto. Briefly tried on Eliquis with a slight drop in hemoglobin. Prior endoscopy studies largely inconclusive. 3. Extensive coronary artery disease. 4. History of mitral valve replacement x2 with a bioprosthetic valve. 5. CHADS-VASc score of 5 on the basis of advanced age, female gender, hypertension, diabetes, and vascular disease, currently not on anticoagulation. PLAN AND RECOMMENDATIONS: We discussed atrial arrhythmia management and medical management with anticoagulation with Ms. Pearson and her family. At this point, she has not tolerated Xarelto in the past. It seems by chart review that she was placed on Eliquis overnight and had a slight drop in hemoglobin and the decision was made to forego any further attempts with Eliquis at that time. She is on aspirin right now. She is maintained on a low-dose amiodarone for arrhythmia suppression, although unfortunately is experiencing a breakthrough in her atrial arrhythmias. In the short-tem, we would recommend a GIA and cardioversion if no atrial thrombus seen. Following cardioversion, could provide some clarity as to whether or not a pacemaker is indicated with her. At this point, she remains slightly bradycardic, which could be more pronounced following cardioversion. If cardioversion is unsuccessful, plan is to stop amiodarone as it is not successfully suppressing her arrhythmias. Anticoagulation is difficult prospect with her. She has had multiple GI bleeds in the past on Xarelto, not entirely convincing trial on Eliquis, but with her history, there is high risk for recurrent bleeding issues. She would be a great candidate for Watchman for left atrial appendage closure; however, this does require anticoagulation leading up to device placement as well as for short-term thereafter. However, it may be more appropriate for her and with her age, it does come with substantially higher risk. For now, we will plan for GIA cardioversion and await the results. Thank you for allowing us to participate in the care of this patient. Job ID: [id number]
[2018-02-24] MEDS: ALPRAZolam 0.5 MG TAB PO PRN (23:57)
[2018-02-25 06:12] LABS: Anion Gap 13 mmol/L (10-20); BUN (Urea Nitrogen) 36 mg/dL (9.8-20.1); Calc. Creatinine Clearance 39 mL/min (70-130); Calcium 9.2 mg/dL (7.8-10.44); Carbon Dioxide 30 mmol/L (23-31); Chloride 100 mmol/L (98-107); Estimated GFR-MDRD 37; Glucose 161 mg/dL (83-110); Magnesium 2.1 mg/dL (1.6-2.6); Sodium 139 mmol/L (136-145)
[2018-02-25] MEDS: Levothyroxine Sodium 75 MCG TAB PO SCH (06:19)
[2018-02-25] MEDS: Furosemide 40 MG/4 ML VIAL SLOW IVP SCH ×3 (06:19→16:09)
[2018-02-25] MEDS ORDERED: PROPOFOL 20 ML ONE (08:41)
[2018-02-25] MEDS: Aspirin 325 MG TAB PO SCH (10:42)
[2018-02-25] MEDS: Amiodarone 200 MG TAB PO SCH (10:42)
[2018-02-25] MEDS: Losartan 25 MG TAB PO SCH (10:42)
[2018-02-25] MEDS: Fluticasone Propionate Nasal Spray 16 gm Bottle NASAL SCH (10:43)
[2018-02-25] MEDS: Ubidecarenone 50 MG CAP PO SCH (10:46)
--- NOTE | 2018-02-25 12:37 | PDOC.CTH ---
Cardiology Progress Note - Subjective EP PROGRESS NOTE:02/25/18 Seen as follow up for atrial arrhythmias and anticoagulation difficulties. No new cardiac concerns over night. Legs remain weak with any attempted ambulation. Family bedside. GIA/CV this AM - Objective Vital Signs Temp Pulse Resp BP Pulse Ox 02/25/18 07:21 97.9 F 61 18 117/57 L 96 02/25/18 04:00 97.4 F L 58 L 20 113/55 L 93 L Weight 161 lb 9.6 oz 02/24/18 02/25/18 02/26/18 06:59 06:59 06:59 Intake Total 1350 210 280 Output Total 2500 1350 0 Balance -1150 -1140 280 - Physical Examination General/Neuro: alert & oriented x3, NAD Neck: carotid US brisk, no JVD present Lungs: CTA, unlabored respirations Heart: PMI normal Abdomen: NT/ND, soft - Telemetry Telemetry Rhythm: SR - Labs Result Diagrams: 02/22/18 04:48 02/25/18 04:53 Troponin/CKMB Troponin I Less than 0.010 ng/mL (< 0.028) 02/20/18 19:36 - Assessment/Plan 1.Atrial arrhythmias - atrial flutter dx 02/2016 - now atrial fibrillation and atrial tachycardia with slow VR - AMiodarone 200mg PO QD for suppression - GIA/CV successful this AM. In SR 55-65 bpm. ambulating without leg weakness or shortness of breath. 2. Bradycardia - seen with concurrent amiodarone therapy. May require PPM implant if stefany worsens. If CV fails, plan to DC amiodarone which may remove potential indication for PPM but raises other challenges with managing stroke risk with atrial arrhytmias 3.CHADS2-VASC: 6 (age, gender, HTN, vascular disease, and diabetes) - 9.7% annual stroke risk - recurrent anemia with suspected GIB while on Xarelto in past 2 years. - Previously on warfarin while treated for PE. No documented history of bleeding issues with warfarin - Per DC summary in 09/2017, Eliquis tried for 1 day in September with slight drop in H/H and then stopped in favor or ASA alone - Cannot get watchman unless anticoagulated temporarily - Lariat is a possibility Outpatient follow up requested to discuss arrhythmias management and left atrial appendage options.
--- NOTE | 2018-02-25 13:00 | EKG ---
Test Reason : Blood Pressure : / mmHG Vent. Rate : 054 BPM Atrial Rate : 081 BPM P-R Int : 000 ms QRS Dur : 098 ms QT Int : 516 ms P-R-T Axes : 000 022 048 degrees QTc Int : 489 ms sinus bradycardia vs low atrial pacemaker site Nonspecific ST and T wave abnormality Prolonged QT Abnormal ECG When compared with ECG of 20-FEB-2018 19:40, (Unconfirmed) Junctional rhythm has replaced Atrial fibrillation T wave inversion now evident in Inferior leads Confirmed by DR. Leon GROSS ([id number]) on 02/25/2018 1:00:43 PM Referred By: PATRIC Confirmed By:DR. Leon GROSS
[2018-02-25] MEDS: metFORMIN 500 MG TAB PO SCH ×2 (13:27→17:24)
[2018-02-25] MEDS ORDERED: PROPOFOL 200 MG/20 ML VIAL ONE (15:06)
[2018-02-25] MEDS: Polyethylene Glycol 3350 17 GM Packet PO SCH (21:18)
[2018-02-25] MEDS: ALPRAZolam 0.5 MG TAB PO PRN (21:18)
--- NOTE | 2018-02-25 21:25 | PDOC.PN ---
- Subjective Encounter Start Date: 02/25/18 Encounter Start Time: 16:00 Patient seen and examined for CHF/Afib. SOB improving. S/p GIA CV. No new complaints. No overnight events - Objective MAR Reviewed: Yes Vital Signs & Weight: Vital Signs (12 hours) Temp Pulse Resp BP BP Pulse Ox 02/25/18 21:12 97.8 F 53 L 22 H 118/70 94 L 02/25/18 15:51 97.7 F 61 18 157/66 H 97 02/25/18 11:35 97.6 F 53 L 18 147/64 H 97 Weight Weight 161 lb 9.6 oz I&O: 02/24/18 02/25/18 02/26/18 06:59 06:59 06:59 Intake Total 1350 210 280 Output Total 2500 1350 0 Balance -1150 -1140 280 Result Diagrams: 02/26/18 04:45 02/26/18 04:45 Additional Labs: Accuchecks 02/25/18 02/25/18 02/25/18 16:48 08:17 06:00 POC Glucose 238 H 136 H 159 H EKG Reviewed by me: Yes (Tele SR) Phys Exam - Physical Examination Constitutional: NAD Respiratory: no wheezing, no rhonchi few rales at bases Cardiovascular: RRR, no rub Gastrointestinal: soft, non-tender, positive bowel sounds Musculoskeletal: no edema Neurological: moves all 4 limbs Dx/Plan (1) Acute and chronic respiratory failure with hypoxia Code(s): J96.21 - ACUTE AND CHRONIC RESPIRATORY FAILURE WITH HYPOXIA Status: Acute (2) Acute on chronic diastolic ACC/AHA stage C congestive heart failure Code(s): I50.33 - ACUTE ON CHRONIC DIASTOLIC (CONGESTIVE) HEART FAILURE Status : Acute (3) DM2 (diabetes mellitus, type 2) Status: Chronic Qualifiers: Chronic kidney disease stage: stage 3 (moderate) Comment: refusing insulin (4) CAD (coronary artery disease) Code(s): I25.10 - ATHSCL HEART DISEASE OF [place] CORONARY ARTERY W/O ANG PCTRS Status: Chronic (5) Atrial flutter Code(s): I48.92 - UNSPECIFIED ATRIAL FLUTTER Status: Acute Comment: s/p CV this admission (6) Other issues per previous notes Status: Acute - Plan cont current plan of care, plan discussed w/ family, DVT proph w/SCDs Cont ASA, Unable to tolerate anticoag -: Cont diuretics per Cardiology -: AM labs Review of Systems - Review of Systems Cardiovascular: negative: chest pain, palpitations, orthopnea, paroxysmal nocturnal dyspnea, edema, light headedness, other Gastrointestinal: negative: Nausea, Vomiting, Abdominal Pain, Diarrhea, Constipation, Melena, Hematochezia, Other - Medications/Allergies Allergies/Adverse Reactions: Allergies Allergy/AdvReac Type Severity Reaction Status Date / Time nitrofurantoin Allergy Rash Verified 02/20/18 23:32 penicillin V Allergy Rash Verified 02/20/18 23:32 Penicillins Allergy Rash Verified 02/20/18 23:32 pentazocine Allergy HALLUCINATI Verified 02/20/18 23:32 ONS pentazocine lactate Allergy Verified 02/20/18 23:32 [From Talwin] prednisone Allergy Verified 02/20/18 23:32 rivaroxaban [From Xarelto] Allergy Verified 02/20/18 23:32 Medications: Current Medications Acetaminophen (Tylenol) 650 mg PO Q4H PRN PRN Reason: Headache/Fever/Mild Pain (1-3) Last Admin: 02/23/18 05:11 Dose: 650 mg Albuterol/Ipratropium (Duoneb) 3 ml NEB Q6H PRN PRN Reason: SOB &/or Wheezing Alprazolam (Xanax) 0.5 mg PO HS PRN PRN Reason: Anxiety/Sleep/Spasm Last Admin: 02/25/18 21:18 Dose: 0.5 mg Amiodarone HCl (Cordarone) 200 mg PO DAILY [facility] Last Admin: 02/25/18 10:42 Dose: 200 mg Aspirin (Aspirin) 325 mg PO DAILY [facility] Last Admin: 02/25/18 10:42 Dose: 325 mg Coenzyme Q10 (Coenzyme Q10) 200 mg PO DAILY [facility] Last Admin: 02/25/18 10:46 Dose: 200 mg Dextrose/Water (Dextrose 50%) 25 gm SLOW IVP PRN PRN PRN Reason: Hypoglycemia Fluticasone Propionate (Flonase Nasal [place]) 0 gm NASAL DAILY [facility] Last Admin: 02/25/18 10:43 Dose: Not Given Furosemide (Lasix) 40 mg SLOW IVP 0600,1400 [facility] Last Admin: 02/25/18 16:09 Dose: 40 mg Glucagon (Glucagon) 1 mg IM PRN PRN PRN Reason: Hypoglycemia Dextrose/Water (D5w) 1,000 mls @ 0 mls/hr IV .Q0M PRN PRN Reason: Hypoglycemia Levothyroxine Sodium (Synthroid) 75 mcg PO 0600 [facility] Last Admin: 02/25/18 06:19 Dose: 75 mcg Losartan Potassium (Cozaar) 50 mg PO DAILY [facility] Last Admin: 02/25/18 10:42 Dose: 50 mg Metformin HCl (Glucophage) 500 mg PO BID-[facility] Last Admin: 02/25/18 17:24 Dose: 500 mg Pantoprazole Sodium (Protonix) 40 mg PO DAILY [facility] Last Admin: 02/25/18 10:42 Dose: 40 mg Polyethylene Glycol (Miralax) 17 gm PO HS [facility] Last Admin: 02/25/18 21:18 Dose: 17 gm Senna/Docusate Sodium (Senokot S) 2 tab PO BID PRN PRN Reason: Constipation Sodium Chloride (Flush - Normal Saline) 10 ml IVF Q12HR [facility] Last Admin: 02/25/18 21:19 Dose: 10 ml Sodium Chloride (Flush - Normal Saline) 10 ml IVF PRN PRN PRN Reason: Saline Flush
--- NOTE | 2018-02-25 22:40 | ECHO ---
This is an 82-year-old woman with paroxysmal atrial fibrillation. DESCRIPTION OF PROCEDURE: The patient was taken to the PACU. The patient was sedated by anesthesiology. A transesophageal pro be was placed into the distal esophagus and stomach. Echocardiographic images were obtained. The tr ansesophageal probe was removed. FINDINGS: 1. Normal left ventricular systolic function. 2. Left atrial enlargement. 3. Bioprosthetic aortic valve. 4. Small perivalvular mitral valve leak. 5. Mild tricuspid regurgitation. 6. Trivial aortic regurgitation. 7. No thrombus in atrium or left atrial appendage. 8. Atherosclerotic debris in the descending aorta. IMPRESSION: No formed thrombus in the left atrial or left atrial appendage.
--- NOTE | 2018-02-25 23:07 | OP ---
PROCEDURE: Direct current cardioversion. The patient remained in the PCU under intravenous sedation after undergoing transesophageal echo whi ch did not reveal any intracardiac thrombus. The patient was not anticoagulated due to history of GI bleed on any anticoagulation. Increased risks were discussed with the patient previously. With 200 thomas ules, she returned to sinus bradycardia with rate of 50 per minute.
[2018-02-26 05:14] LABS: Hemoglobin 8.7 g/dL (12.0-16.0); Platelet Count 155 thou/uL (130-400)
[2018-02-26 05:38] LABS: Anion Gap 15 mmol/L (10-20); BUN (Urea Nitrogen) 36 mg/dL (9.8-20.1); Calc. Creatinine Clearance 39 mL/min (70-130); Calcium 8.9 mg/dL (7.8-10.44); Carbon Dioxide 26 mmol/L (23-31); Chloride 99 mmol/L (98-107); Estimated GFR-MDRD 40; Glucose 145 mg/dL (83-110); Magnesium 2.1 mg/dL (1.6-2.6); Potassium 3.8 mmol/L (3.5-5.1); Sodium 136 mmol/L (136-145)
[2018-02-26] MEDS: Furosemide 40 MG/4 ML VIAL SLOW IVP SCH ×2 (06:15→14:41)
[2018-02-26] MEDS: Levothyroxine Sodium 75 MCG TAB PO SCH (06:15)
[2018-02-26] MEDS: Ubidecarenone 50 MG CAP PO SCH (10:28)
[2018-02-26] MEDS: metFORMIN 500 MG TAB PO SCH ×2 (10:29→17:43)
[2018-02-26] MEDS: Amiodarone 200 MG TAB PO SCH (10:29)
[2018-02-26] MEDS: Losartan 25 MG TAB PO SCH (10:29)
[2018-02-26] MEDS: Aspirin 325 MG TAB PO SCH (10:29)
[2018-02-26] MEDS: Fluticasone Propionate Nasal Spray 16 gm Bottle NASAL SCH (10:32)
--- NOTE | 2018-02-26 12:27 | PDOC.CTH ---
Cardiology Progress Note - Subjective EP Follow up 02/26/18 Feels better. Legs still get fatifued withn minimal walking. mild dyspnea. - ROS chest pain (No), dizziness (None), shortness of breath (Mild) - Objective Vital Signs Temp Pulse Resp BP BP Pulse Ox 02/26/18 08:00 97.4 F L 49 L 16 135/55 L 100 02/26/18 06:12 54 L 20 121/51 L 94 L 02/26/18 03:55 97.3 F L 50 L 18 103/46 L 92 L Weight 163 lb 3.2 oz 02/25/18 02/26/18 02/27/18 06:59 06:59 06:59 Intake Total 210 529 Output Total 1350 700 Balance -1140 -171 - Labs Result Diagrams: 02/26/18 04:45 02/26/18 04:45 Troponin/CKMB Troponin I Less than 0.010 ng/mL (< 0.028) 02/20/18 19:36 - Assessment/Plan - Assessment/Plan 1.Atrial arrhythmias - atrial flutter dx 02/2016 - now atrial fibrillation and atrial tachycardia with slow VR - AMiodarone 200mg PO QD for suppression - GIA/CV successful yesterday AM. In SR 50-55 bpm. ambulating with leg weakness and mild shortness of breath. 2. Bradycardia - seen with concurrent amiodarone therapy. May require PPM implant. Will discuss with dr Mccormick. hence stefany perisits post CV. If CV fails, plan to DC amiodarone which may remove potential indication for PPM but raises other challenges with managing stroke risk with atrial arrhytmias. 3.CHADS2-VASC: 6 (age, gender, HTN, vascular disease, and diabetes) - 9.7% annual stroke risk - recurrent anemia with suspected GIB while on Xarelto in past 2 years. - Previously on warfarin while treated for PE. No documented history of bleeding issues with warfarin - Per DC summary in 09/2017, Eliquis tried for 1 day in September with slight drop in H/H and then stopped in favor or ASA alone - Cannot get watchman unless anticoagulated temporarily - Lariat is a remote possibility Anemia: Poor tolerance for OAC. HGB 8.7 Outpatient follow up requested to discuss arrhythmias management and left atrial appendage options.
[2018-02-26] MEDS: Polyethylene Glycol 3350 17 GM Packet PO SCH (20:57)
[2018-02-26] MEDS: ALPRAZolam 0.5 MG TAB PO PRN (20:58)
--- NOTE | 2018-02-26 22:35 | PDOC.PN ---
- Subjective Encounter Start Date: 02/26/18 Encounter Start Time: 15:00 Patient seen and examined for CHF. No CP. No new complaints. No overnight events - Objective MAR Reviewed: Yes Vital Signs & Weight: Vital Signs (12 hours) Temp Pulse Resp BP BP 02/26/18 16:00 97.7 F 52 L 16 113/50 L 02/26/18 12:00 98.0 F 52 L 16 131/58 L Weight Weight 163 lb 3.2 oz I&O: 02/25/18 02/26/18 02/27/18 06:59 06:59 06:59 Intake Total 210 529 615 Output Total 1350 700 900 Balance -1140 -171 -285 Result Diagrams: 02/26/18 04:45 02/26/18 04:45 Additional Labs: Accuchecks 02/26/18 02/26/18 14:41 05:43 POC Glucose 177 H 159 H EKG Reviewed by me: Yes (Tele SB) Phys Exam - Physical Examination Constitutional: NAD Respiratory: no wheezing, no rhonchi bibasilar rales Cardiovascular: RRR, no rub Gastrointestinal: soft, non-tender, positive bowel sounds Musculoskeletal: no edema Neurological: moves all 4 limbs Dx/Plan (1) Acute and chronic respiratory failure with hypoxia Code(s): J96.21 - ACUTE AND CHRONIC RESPIRATORY FAILURE WITH HYPOXIA Status: Acute (2) Acute on chronic diastolic ACC/AHA stage C congestive heart failure Code(s): I50.33 - ACUTE ON CHRONIC DIASTOLIC (CONGESTIVE) HEART FAILURE Status : Acute (3) DM2 (diabetes mellitus, type 2) Status: Chronic Qualifiers: Chronic kidney disease stage: stage 3 (moderate) Comment: refusing insulin (4) CAD (coronary artery disease) Code(s): I25.10 - ATHSCL HEART DISEASE OF [place] CORONARY ARTERY W/O ANG PCTRS Status: Chronic (5) Atrial flutter Code(s): I48.92 - UNSPECIFIED ATRIAL FLUTTER Status: Acute Comment: s/p CV this admission (6) Other issues per previous notes Status: Acute - Plan cont current plan of care, out of bed/ambulate, DVT proph w/SCDs Cont IV Lasix per Cardiology -: Cont current meds as below -: AM labs -: Cont Losartan. Not on Betablockers due to bradycardia Review of Systems - Review of Systems Constitutional: negative: fever, chills, sweats, weakness, malaise, other Cardiovascular: negative: chest pain, palpitations, orthopnea, paroxysmal nocturnal dyspnea, edema, light headedness, other - Medications/Allergies Allergies/Adverse Reactions: Allergies Allergy/AdvReac Type Severity Reaction Status Date / Time nitrofurantoin Allergy Rash Verified 02/20/18 23:32 penicillin V Allergy Rash Verified 02/20/18 23:32 Penicillins Allergy Rash Verified 02/20/18 23:32 pentazocine Allergy HALLUCINATI Verified 02/20/18 23:32 ONS pentazocine lactate Allergy Verified 02/20/18 23:32 [From Talwin] prednisone Allergy Verified 02/20/18 23:32 rivaroxaban [From Xarelto] Allergy Verified 02/20/18 23:32 Medications: Current Medications Acetaminophen (Tylenol) 650 mg PO Q4H PRN PRN Reason: Headache/Fever/Mild Pain (1-3) Last Admin: 02/23/18 05:11 Dose: 650 mg Albuterol/Ipratropium (Duoneb) 3 ml NEB Q6H PRN PRN Reason: SOB &/or Wheezing Alprazolam (Xanax) 0.5 mg PO HS PRN PRN Reason: Anxiety/Sleep/Spasm Last Admin: 02/26/18 20:58 Dose: 0.5 mg Amiodarone HCl (Cordarone) 200 mg PO DAILY [facility] Last Admin: 02/26/18 10:29 Dose: 200 mg Aspirin (Aspirin) 325 mg PO DAILY [facility] Last Admin: 02/26/18 10:29 Dose: 325 mg Coenzyme Q10 (Coenzyme Q10) 200 mg PO DAILY [facility] Last Admin: 02/26/18 10:28 Dose: 200 mg Dextrose/Water (Dextrose 50%) 25 gm SLOW IVP PRN PRN PRN Reason: Hypoglycemia Fluticasone Propionate (Flonase Nasal [place]) 0 gm NASAL DAILY [facility] Last Admin: 02/26/18 10:32 Dose: Not Given Furosemide (Lasix) 40 mg SLOW IVP 0600,1400 [facility] Last Admin: 02/26/18 14:41 Dose: 40 mg Glucagon (Glucagon) 1 mg IM PRN PRN PRN Reason: Hypoglycemia Dextrose/Water (D5w) 1,000 mls @ 0 mls/hr IV .Q0M PRN PRN Reason: Hypoglycemia Levothyroxine Sodium (Synthroid) 75 mcg PO 0600 [facility] Last Admin: 02/26/18 06:15 Dose: 75 mcg Losartan Potassium (Cozaar) 50 mg PO DAILY [facility] Last Admin: 02/26/18 10:29 Dose: 50 mg Metformin HCl (Glucophage) 500 mg PO BID-[facility] Last Admin: 02/26/18 17:43 Dose: 500 mg Pantoprazole Sodium (Protonix) 40 mg PO DAILY [facility] Last Admin: 02/26/18 10:29 Dose: 40 mg Polyethylene Glycol (Miralax) 17 gm PO HS [facility] Last Admin: 02/26/18 20:57 Dose: 17 gm Senna/Docusate Sodium (Senokot S) 2 tab PO BID PRN PRN Reason: Constipation Sodium Chloride (Flush - Normal Saline) 10 ml IVF Q12HR [facility] Last Admin: 02/26/18 21:00 Dose: 10 ml Sodium Chloride (Flush - Normal Saline) 10 ml IVF PRN PRN PRN Reason: Saline Flush Last Admin: 02/26/18 14:41 Dose: 10 ml
[2018-02-27 05:52] LABS: Anion Gap 15 mmol/L (10-20); BUN (Urea Nitrogen) 38 mg/dL (9.8-20.1); Calc. Creatinine Clearance 34 mL/min (70-130); Calcium 9.2 mg/dL (7.8-10.44); Carbon Dioxide 28 mmol/L (23-31); Chloride 99 mmol/L (98-107); Estimated GFR-MDRD 34; Glucose 164 mg/dL (83-110); Magnesium 2.1 mg/dL (1.6-2.6); Potassium 4.2 mmol/L (3.5-5.1); Sodium 138 mmol/L (136-145)
[2018-02-27] MEDS: Furosemide 40 MG/4 ML VIAL SLOW IVP SCH (06:47)
[2018-02-27] MEDS: Levothyroxine Sodium 75 MCG TAB PO SCH (06:47)
[2018-02-27] MEDS: Fluticasone Propionate Nasal Spray 16 gm Bottle NASAL SCH (09:47)
[2018-02-27] MEDS: Amiodarone 200 MG TAB PO SCH (09:47)
[2018-02-27] MEDS: Ubidecarenone 50 MG CAP PO SCH (09:48)
[2018-02-27] MEDS: Losartan 25 MG TAB PO SCH (09:48)
[2018-02-27] MEDS: Aspirin 325 MG TAB PO SCH (09:48)
[2018-02-27] MEDS: metFORMIN 500 MG TAB PO SCH ×2 (09:57→18:00)
--- NOTE | 2018-02-27 14:25 | PDOC.CTH ---
Cardiology Progress Note - Subjective EP Follow up 02/27/18 Feels better. Legs still get fatigued with minimal walking with some mild dyspnea but feels much improved since cardioversion. - Objective Vital Signs Temp Pulse Resp BP BP BP Pulse Ox 02/27/18 12:00 98 F 50 L 18 128/53 L 95 02/27/18 08:00 97.6 F 50 L 18 104/45 L 97 02/27/18 03:45 97.8 F 59 L 13 128/52 L 95 Weight 163 lb 9.6 oz 02/26/18 02/27/18 02/28/18 06:59 06:59 06:59 Intake Total 529 989 300 Output Total 700 1300 Balance -171 -311 300 - Physical Examination General/Neuro: alert & oriented x3, NAD Neck: carotid US brisk, no JVD present Lungs: CTA, unlabored respirations Heart: PMI normal, RRR Abdomen: NT/ND, soft - Telemetry Telemetry Rhythm: SR - Labs Result Diagrams: 02/26/18 04:45 02/27/18 04:54 Troponin/CKMB Troponin I Less than 0.010 ng/mL (< 0.028) 02/20/18 19:36 - Assessment/Plan 1.Atrial arrhythmias - atrial flutter dx 02/2016 - now atrial fibrillation and atrial tachycardia with slow VR s/p CV 02/25 - Amiodarone 200mg PO QD for suppression - GIA/CV successful two days ago. In SR 50-55 bpm. ambulating with leg weakness and mild shortness of breath. 2. Bradycardia - seen with concurrent amiodarone therapy and persistent post CV. Minimal heart rate response with activity and would likely benefit from PPM implant. Discussed with Dr Mccormick who may place PPM 3.CHADS2-VASC: 6 (age, gender, HTN, vascular disease, and diabetes) - recurrent anemia with suspected GIB while on Xarelto in past 2 years. - Previously on warfarin while treated for PE. No documented history of bleeding issues with warfarin - Per DC summary in 09/2017, Eliquis tried for 1 day in September with slight drop in H/H and then stopped in favor or ASA alone - Cannot get watchman unless anticoagulated temporarily - Lariat is a remote possibility 4. Anemia: -Poor tolerance for OAC. HGB 8.7 Outpatient follow up requested upon DC in 4-6 weeks. Recommend pacemaker by cardiology for persistent bradycardia and associated dyspnea with activity.
--- NOTE | 2018-02-27 16:59 | EKG ---
Test Reason : Blood Pressure : / mmHG Vent. Rate : 054 BPM Atrial Rate : 054 BPM P-R Int : 152 ms QRS Dur : 100 ms QT Int : 478 ms P-R-T Axes : 090 063 081 degrees QTc Int : 453 ms Sinus bradycardia Low voltage QRS Nonspecific ST-T changes When compared with ECG of 25-FEB-2018 09:15, Nonspecific T wave abnormality, improved in Anterolateral leads QT has shortened Confirmed by DR. Leon GROSS ([id number]) on 02/27/2018 4:59:26 PM Referred By: PATRIC Confirmed By:DR. Leon GROSS
[2018-02-27] MEDS: ALPRAZolam 0.5 MG TAB PO PRN (21:35)
[2018-02-27] MEDS: Polyethylene Glycol 3350 17 GM Packet PO SCH (21:35)
--- NOTE | 2018-02-27 22:55 | PDOC.PN ---
- Subjective Encounter Start Date: 02/27/18 Encounter Start Time: 15:00 Patient seen and examined for CHF/Afib. SOB on exertion.No new complaints. No overnight events - Objective MAR Reviewed: Yes Vital Signs & Weight: Vital Signs (12 hours) Temp Pulse Pulse Pulse Resp BP BP 02/27/18 19:45 97.6 F 54 L 18 02/27/18 16:00 98 F 51 L 18 02/27/18 15:16 58 L 50 L 130/55 L 121/67 02/27/18 12:00 98 F 50 L 18 BP BP Pulse Ox Pulse Ox Pulse Ox 02/27/18 19:45 140/61 97 02/27/18 16:00 132/53 L 96 02/27/18 15:16 91 L 93 L 02/27/18 12:00 128/53 L 95 Weight Weight 163 lb 9.6 oz I&O: 02/26/18 02/27/18 02/28/18 06:59 06:59 06:59 Intake Total 637 558 2197 Output Total 700 1300 525 Balance -171 -311 495 Result Diagrams: 02/26/18 04:45 02/28/18 05:06 Additional Labs: Accuchecks 02/27/18 02/27/18 02/27/18 21:37 14:12 09:55 POC Glucose 227 H 185 H 216 H 02/27/18 04:10 POC Glucose 157 H EKG Reviewed by me: Yes (Tele SB) Phys Exam - Physical Examination Constitutional: NAD Respiratory: no wheezing, no rhonchi few rales at bases Cardiovascular: RRR, no rub Gastrointestinal: soft, non-tender, positive bowel sounds Musculoskeletal: no edema Neurological: moves all 4 limbs Psychiatric: A&O x 3 Dx/Plan (1) Acute and chronic respiratory failure with hypoxia Code(s): J96.21 - ACUTE AND CHRONIC RESPIRATORY FAILURE WITH HYPOXIA Status: Acute (2) Acute on chronic diastolic ACC/AHA stage C congestive heart failure Code(s): I50.33 - ACUTE ON CHRONIC DIASTOLIC (CONGESTIVE) HEART FAILURE Status : Acute (3) DM2 (diabetes mellitus, type 2) Status: Chronic Qualifiers: Chronic kidney disease stage: stage 3 (moderate) Comment: refusing insulin (4) CAD (coronary artery disease) Code(s): I25.10 - ATHSCL HEART DISEASE OF [place] CORONARY ARTERY W/O ANG PCTRS Status: Chronic (5) Atrial flutter Code(s): I48.92 - UNSPECIFIED ATRIAL FLUTTER Status: Acute Comment: s/p CV this admission (6) Other issues per previous notes Status: Acute - Plan cont current plan of care, PT/OT, DVT proph w/SCDs Cont fluid rest -: Change Lasix to PO -: AM labs -: ?Pacemaker per Cardiology Review of Systems - Review of Systems Constitutional: negative: fever, chills, sweats, weakness, malaise, other Gastrointestinal: negative: Nausea, Vomiting, Abdominal Pain, Diarrhea, Constipation, Melena, Hematochezia, Other Genitourinary: negative: Dysuria, Frequency, Incontinence, Hematuria, Retention , Other - Medications/Allergies Allergies/Adverse Reactions: Allergies Allergy/AdvReac Type Severity Reaction Status Date / Time nitrofurantoin Allergy Rash Verified 02/20/18 23:32 penicillin V Allergy Rash Verified 02/20/18 23:32 Penicillins Allergy Rash Verified 02/20/18 23:32 pentazocine Allergy HALLUCINATI Verified 02/20/18 23:32 ONS pentazocine lactate Allergy Verified 02/20/18 23:32 [From Talwin] prednisone Allergy Verified 02/20/18 23:32 rivaroxaban [From Xarelto] Allergy Verified 02/20/18 23:32 Medications: Current Medications Acetaminophen (Tylenol) 650 mg PO Q4H PRN PRN Reason: Headache/Fever/Mild Pain (1-3) Last Admin: 02/23/18 05:11 Dose: 650 mg Albuterol/Ipratropium (Duoneb) 3 ml NEB Q6H PRN PRN Reason: SOB &/or Wheezing Alprazolam (Xanax) 0.5 mg PO HS PRN PRN Reason: Anxiety/Sleep/Spasm Last Admin: 02/27/18 21:35 Dose: 0.5 mg Amiodarone HCl (Cordarone) 200 mg PO DAILY [facility] Last Admin: 02/27/18 09:47 Dose: 200 mg Aspirin (Aspirin) 325 mg PO DAILY [facility] Last Admin: 02/27/18 09:48 Dose: 325 mg Coenzyme Q10 (Coenzyme Q10) 200 mg PO DAILY [facility] Last Admin: 02/27/18 09:48 Dose: 200 mg Dextrose/Water (Dextrose 50%) 25 gm SLOW IVP PRN PRN PRN Reason: Hypoglycemia Fluticasone Propionate (Flonase Nasal [place]) 0 gm NASAL DAILY [facility] Last Admin: 02/27/18 09:47 Dose: Not Given Furosemide (Lasix) 40 mg PO DAILY[facility] Glucagon (Glucagon) 1 mg IM PRN PRN PRN Reason: Hypoglycemia Dextrose/Water (D5w) 1,000 mls @ 0 mls/hr IV .Q0M PRN PRN Reason: Hypoglycemia Levothyroxine Sodium (Synthroid) 75 mcg PO 0600 [facility] Last Admin: 02/27/18 06:47 Dose: 75 mcg Losartan Potassium (Cozaar) 50 mg PO DAILY [facility] Last Admin: 02/27/18 09:48 Dose: 50 mg Metformin HCl (Glucophage) 500 mg PO BID-[facility] Last Admin: 02/27/18 18:00 Dose: Not Given Pantoprazole Sodium (Protonix) 40 mg PO DAILY [facility] Last Admin: 02/27/18 09:48 Dose: 40 mg Polyethylene Glycol (Miralax) 17 gm PO HS [facility] Last Admin: 02/27/18 21:35 Dose: 17 gm Senna/Docusate Sodium (Senokot S) 2 tab PO BID PRN PRN Reason: Constipation Sodium Chloride (Flush - Normal Saline) 10 ml IVF Q12HR [facility] Last Admin: 02/27/18 21:35 Dose: 10 ml Sodium Chloride (Flush - Normal Saline) 10 ml IVF PRN PRN PRN Reason: Saline Flush Last Admin: 02/27/18 06:47 Dose: 10 ml
[2018-02-28 05:59] LABS: Anion Gap 12 mmol/L (10-20); BUN (Urea Nitrogen) 39 mg/dL (9.8-20.1); Calc. Creatinine Clearance 39 mL/min (70-130); Calcium 9.3 mg/dL (7.8-10.44); Carbon Dioxide 30 mmol/L (23-31); Chloride 98 mmol/L (98-107); Estimated GFR-MDRD 39; Glucose 146 mg/dL (83-110); Magnesium 2.5 mg/dL (1.6-2.6); Potassium 4.1 mmol/L (3.5-5.1); Sodium 136 mmol/L (136-145)
[2018-02-28] MEDS: Levothyroxine Sodium 75 MCG TAB PO SCH (06:01)
[2018-02-28] MEDS: metFORMIN 500 MG TAB PO SCH ×2 (09:02→17:42)
[2018-02-28] MEDS: Ubidecarenone 50 MG CAP PO SCH (09:02)
[2018-02-28] MEDS: Losartan 25 MG TAB PO SCH (09:03)
[2018-02-28] MEDS: Amiodarone 200 MG TAB PO SCH (09:03)
[2018-02-28] MEDS: Aspirin 325 MG TAB PO SCH (09:03)
[2018-02-28] MEDS: Furosemide 40 MG TAB PO SCH (09:03)
[2018-02-28] MEDS: Fluticasone Propionate Nasal Spray 16 gm Bottle NASAL SCH (09:03)
--- NOTE | 2018-02-28 13:50 | PDOC.PN ---
- Subjective Encounter Start Date: 02/28/18 Encounter Start Time: 11:30 Patient seen and examined for CHF. No new complaints. No overnight events - Objective MAR Reviewed: Yes Vital Signs & Weight: Vital Signs (12 hours) Temp Pulse Resp BP BP Pulse Ox 02/28/18 11:54 98.1 F 55 L 18 138/57 L 97 02/28/18 08:00 97.5 F L 50 L 18 112/39 L 97 02/28/18 03:59 97.7 F 50 L 135/56 L 97 Weight Weight 162 lb 12.8 oz I&O: 02/27/18 02/28/18 03/01/18 06:59 06:59 06:59 Intake Total 989 1270 Output Total 1300 1225 Balance -311 45 Result Diagrams: 02/26/18 04:45 02/28/18 05:06 Additional Labs: Accuchecks 02/27/18 02/27/18 21:37 14:12 POC Glucose 227 H 185 H EKG Reviewed by me: Yes (Tele SB) Phys Exam - Physical Examination Constitutional: NAD Respiratory: no wheezing, no rhonchi Cardiovascular: RRR, no rub Gastrointestinal: soft, non-tender, positive bowel sounds Musculoskeletal: no edema Neurological: moves all 4 limbs Dx/Plan (1) Acute and chronic respiratory failure with hypoxia Code(s): J96.21 - ACUTE AND CHRONIC RESPIRATORY FAILURE WITH HYPOXIA Status: Acute (2) Acute on chronic diastolic ACC/AHA stage C congestive heart failure Code(s): I50.33 - ACUTE ON CHRONIC DIASTOLIC (CONGESTIVE) HEART FAILURE Status : Acute (3) DM2 (diabetes mellitus, type 2) Status: Chronic Qualifiers: Chronic kidney disease stage: stage 3 (moderate) Comment: refusing insulin (4) CAD (coronary artery disease) Code(s): I25.10 - ATHSCL HEART DISEASE OF [place] CORONARY ARTERY W/O ANG PCTRS Status: Chronic (5) Atrial flutter Code(s): I48.92 - UNSPECIFIED ATRIAL FLUTTER Status: Acute Comment: s/p CV this admission (6) Other issues per previous notes - Plan cont current plan of care, DVT proph w/SCDs ?Pacemaker on friday -: Cardio/EP following -: Cont PO Lasix -: AM labs -: Cont current meds as below Review of Systems - Review of Systems Respiratory: negative: Cough, Dry, Shortness of Breath, Hemoptysis, SOB with Excertion, Pleuritic Pain, Sputum, Wheezing Cardiovascular: negative: chest pain, palpitations, orthopnea, paroxysmal nocturnal dyspnea, edema, light headedness, other - Medications/Allergies Allergies/Adverse Reactions: Allergies Allergy/AdvReac Type Severity Reaction Status Date / Time nitrofurantoin Allergy Rash Verified 02/20/18 23:32 penicillin V Allergy Rash Verified 02/20/18 23:32 Penicillins Allergy Rash Verified 02/20/18 23:32 pentazocine Allergy HALLUCINATI Verified 02/20/18 23:32 ONS pentazocine lactate Allergy Verified 02/20/18 23:32 [From Talwin] prednisone Allergy Verified 02/20/18 23:32 rivaroxaban [From Xarelto] Allergy Verified 02/20/18 23:32 Medications: Current Medications Acetaminophen (Tylenol) 650 mg PO Q4H PRN PRN Reason: Headache/Fever/Mild Pain (1-3) Last Admin: 02/23/18 05:11 Dose: 650 mg Albuterol/Ipratropium (Duoneb) 3 ml NEB Q6H PRN PRN Reason: SOB &/or Wheezing Alprazolam (Xanax) 0.5 mg PO HS PRN PRN Reason: Anxiety/Sleep/Spasm Last Admin: 02/27/18 21:35 Dose: 0.5 mg Amiodarone HCl (Cordarone) 200 mg PO DAILY [facility] Last Admin: 02/28/18 09:03 Dose: 200 mg Aspirin (Aspirin) 325 mg PO DAILY [facility] Last Admin: 02/28/18 09:03 Dose: 325 mg Coenzyme Q10 (Coenzyme Q10) 200 mg PO DAILY [facility] Last Admin: 02/28/18 09:02 Dose: 200 mg Dextrose/Water (Dextrose 50%) 25 gm SLOW IVP PRN PRN PRN Reason: Hypoglycemia Fluticasone Propionate (Flonase Nasal [place]) 0 gm NASAL DAILY [facility] Last Admin: 02/28/18 09:03 Dose: Not Given Furosemide (Lasix) 40 mg PO DAILY[facility] Last Admin: 02/28/18 09:03 Dose: 40 mg Glucagon (Glucagon) 1 mg IM PRN PRN PRN Reason: Hypoglycemia Dextrose/Water (D5w) 1,000 mls @ 0 mls/hr IV .Q0M PRN PRN Reason: Hypoglycemia Levothyroxine Sodium (Synthroid) 75 mcg PO 0600 [facility] Last Admin: 02/28/18 06:01 Dose: 75 mcg Losartan Potassium (Cozaar) 50 mg PO DAILY [facility] Last Admin: 02/28/18 09:03 Dose: 50 mg Metformin HCl (Glucophage) 500 mg PO BID-[facility] Last Admin: 02/28/18 09:02 Dose: Not Given Pantoprazole Sodium (Protonix) 40 mg PO DAILY [facility] Last Admin: 02/28/18 09:03 Dose: 40 mg Polyethylene Glycol (Miralax) 17 gm PO HS [facility] Last Admin: 02/27/18 21:35 Dose: 17 gm Senna/Docusate Sodium (Senokot S) 2 tab PO BID PRN PRN Reason: Constipation Sodium Chloride (Flush - Normal Saline) 10 ml IVF Q12HR [facility] Last Admin: 02/28/18 09:04 Dose: Not Given Sodium Chloride (Flush - Normal Saline) 10 ml IVF PRN PRN PRN Reason: Saline Flush Last Admin: 02/27/18 06:47 Dose: 10 ml
[2018-02-28] MEDS: Polyethylene Glycol 3350 17 GM Packet PO SCH (21:24)
[2018-02-28] MEDS: ALPRAZolam 0.5 MG TAB PO PRN (21:24)
--- NOTE | 2018-02-28 23:00 | EKG ---
Test Reason : Blood Pressure : / mmHG Vent. Rate : 061 BPM Atrial Rate : 058 BPM P-R Int : 000 ms QRS Dur : 098 ms QT Int : 476 ms P-R-T Axes : 000 045 079 degrees QTc Int : 479 ms Atrial fibrillation Nonspecific ST and T wave abnormality , probably digitalis effect Prolonged QT Abnormal ECG Confirmed by SERENITY CLAROS, CRISTAL ([id number]), image editor DONNY SORTO ([id number]) on 02/28/2018 10:58:59 PM Referred By: Confirmed By:CRISTAL BENTON MD
[2018-03-01 05:42] LABS: Hemoglobin 9.2 g/dL (12.0-16.0); Platelet Count 153 thou/uL (130-400)
[2018-03-01] MEDS: Levothyroxine Sodium 75 MCG TAB PO SCH (05:47)
[2018-03-01 06:00] LABS: Anion Gap 17 mmol/L (10-20); BUN (Urea Nitrogen) 36 mg/dL (9.8-20.1); Calc. Creatinine Clearance 38 mL/min (70-130); Calcium 8.9 mg/dL (7.8-10.44); Carbon Dioxide 23 mmol/L (23-31); Chloride 100 mmol/L (98-107); Estimated GFR-MDRD 38; Glucose 134 mg/dL (83-110); Potassium 4.5 mmol/L (3.5-5.1); Sodium 135 mmol/L (136-145)
[2018-03-01] MEDS: Aspirin 325 MG TAB PO SCH (09:28)
[2018-03-01] MEDS: Amiodarone 200 MG TAB PO SCH (09:28)
[2018-03-01] MEDS: Furosemide 40 MG TAB PO SCH (09:28)
[2018-03-01] MEDS: Losartan 25 MG TAB PO SCH (09:28)
[2018-03-01] MEDS: Ubidecarenone 50 MG CAP PO SCH (09:28)
[2018-03-01] MEDS: metFORMIN 500 MG TAB PO SCH ×2 (09:29→16:44)
[2018-03-01] MEDS: Fluticasone Propionate Nasal Spray 16 gm Bottle NASAL SCH (09:29)
--- NOTE | 2018-03-01 18:45 | PDOC.PN ---
- Subjective Encounter Start Date: 03/01/18 Encounter Start Time: 18:30 Subjective: f/u for acute/chronic CHF and SSS pending pacemaker placement. -: Feels ok overall and no new complaints. - Objective MAR Reviewed: Yes Vital Signs & Weight: Vital Signs (12 hours) Temp Pulse Pulse Pulse Resp BP BP 03/01/18 17:01 56 L 53 L 139/58 L 116/58 L 03/01/18 15:20 97.8 F 53 L 16 03/01/18 12:35 97.2 F L 52 L 18 03/01/18 07:20 98 F 48 L 16 BP Pulse Ox Pulse Ox Pulse Ox 03/01/18 17:01 93 L 91 L 03/01/18 15:20 110/51 L 97 03/01/18 12:35 127/54 L 99 03/01/18 07:20 145/58 H 97 Weight Weight 165 lb I&O: 02/28/18 03/01/18 03/02/18 06:59 06:59 06:59 Intake Total 1270 1040 1080 Output Total 1225 980 680 Balance 45 60 400 Result Diagrams: 03/01/18 05:09 03/01/18 05:09 Additional Labs: Accuchecks 03/01/18 00:53 POC Glucose 192 H Laboratory Tests 02/21/18 02/22/18 02/24/18 03:43 04:48 04:31 Hgb 9.5 L 9.1 L Creatinine 1.22 H Magnesium 02/25/18 02/26/18 02/26/18 04:53 04:45 04:45 Hgb 8.7 L Creatinine 1.36 H 1.28 H Magnesium 02/27/18 02/28/18 04:54 05:06 Hgb Creatinine 1.46 H 1.29 H Magnesium 2.5 EKG Reviewed by me: Yes (Tele - Sinus stefany in 50's) Phys Exam - Physical Examination Constitutional: NAD HEENT: PERRLA, sclera anicteric, oral pharynx no lesions Neck: no nodes, no JVD, supple, full ROM Respiratory: no wheezing, no rales, no rhonchi, clear to auscultation bilateral II/ CODY, S1, S2 Cardiovascular: RRR, no rub, gallop Gastrointestinal: soft, non-tender, no distention, positive bowel sounds Musculoskeletal: no edema, pulses present Neurological: non-focal, normal sensation, moves all 4 limbs Psychiatric: A&O x 3 Skin: normal turgor, cap refill <2 seconds Dx/Plan (1) Sick sinus syndrome Code(s): I49.5 - SICK SINUS SYNDROME Status: Chronic Comment: Plan for pacemaker insertion 03/02/18 (2) Acute and chronic respiratory failure with hypoxia Code(s): J96.21 - ACUTE AND CHRONIC RESPIRATORY FAILURE WITH HYPOXIA Status: Acute Comment: Baseline O2 requirement currently (3) Acute on chronic diastolic ACC/AHA stage C congestive heart failure Code(s): I50.33 - ACUTE ON CHRONIC DIASTOLIC (CONGESTIVE) HEART FAILURE Status : Acute Comment: Stable currently, continue Lasix, ASA, Losartan (4) Atrial flutter Code(s): I48.92 - UNSPECIFIED ATRIAL FLUTTER Status: Acute Comment: s/p CV this admission, current sinus bradycardia, Amiodarone (5) Diabetes type 2, controlled Code(s): E11.9 - TYPE 2 DIABETES MELLITUS WITHOUT COMPLICATIONS Status: Chronic Qualifiers: Diabetes mellitus [facility] insulin use: with [facility] use Diabetes mellitus complication status: without complication Qualified Code(s): E11.9 - Type 2 diabetes mellitus without complications; 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
[2018-03-01] MEDS: Polyethylene Glycol 3350 17 GM Packet PO SCH (20:58)
[2018-03-01] MEDS: ALPRAZolam 0.5 MG TAB PO PRN (23:07)
[2018-03-02] MEDS: Levothyroxine Sodium 75 MCG TAB PO SCH (05:46)
[2018-03-02] MEDS ORDERED: Clindamycin/D5W 600 mg/50 ml Premix Bag ONE (12:32)
[2018-03-02] MEDS ORDERED: Vancomycin HCl 500 MG VIAL ONE (12:32)
[2018-03-02] MEDS ORDERED: Levofloxacin 500 mg/D5W 100 ml Premix Bag ONE (12:33)
[2018-03-02] MEDS ORDERED: Fentanyl 100 MCG/2 ML VIAL ONE (13:35)
[2018-03-02] MEDS ORDERED: Midazolam HCl 2 mg/2 ml Vial ONE (13:35)
[2018-03-02] MEDS ORDERED: Lidocaine 1% (PF) 30 ML VIAL ONE (13:46)
--- NOTE | 2018-03-02 15:07 | PDOC.CTH ---
Cardiology Progress Note - Subjective Ep Follow up 03/03/18 Pt feels good. Still SOB on ambulation. - Objective Vital Signs Temp Pulse Resp BP BP Pulse Ox 03/02/18 11:57 98.0 F 49 L 16 107/46 L 95 03/02/18 08:45 97.4 F L 51 L 17 141/57 H 93 L 03/02/18 04:00 97.9 F 52 L 18 135/58 L Weight 160 lb 03/01/18 03/02/18 03/03/18 06:59 06:59 06:59 Intake Total 1040 1310 Output Total 980 1480 Balance 60 -170 - Physical Examination General/Neuro: alert & oriented x3, NAD Neck: no JVD present Lungs: CTA Heart: RRR Abdomen: no HSM - Labs Result Diagrams: 03/01/18 05:09 03/01/18 05:09 Troponin/CKMB Troponin I Less than 0.010 ng/mL (< 0.028) 02/20/18 19:36 - Assessment/Plan 1.Atrial arrhythmias - atrial flutter dx 02/2016 - now atrial fibrillation and atrial tachycardia with slow VR s/p CV 02/25 - Amiodarone 200mg PO QD for suppression - GIA/CV successful two days ago. In SR 50-55 bpm. ambulating with leg weakness and mild shortness of breath. 2. Bradycardia - seen with concurrent amiodarone therapy and persistent post CV. Minimal heart rate response with activity and would likely benefit from PPM implant. Discussed with Dr Mccormick will place PPM. 3.CHADS2-VASC: 6 (age, gender, HTN, vascular disease, and diabetes) - recurrent anemia with suspected GIB while on Xarelto in past 2 years. - Previously on warfarin while treated for PE. No documented history of bleeding issues with warfarin - Per DC summary in 09/2017, Eliquis tried for 1 day in September with slight drop in H/H and then stopped in favor or ASA alone - Cannot get watchman unless anticoagulated temporarily - Lariat is a remote possibility 4. Anemia: -Poor tolerance for OAC. HGB 8.7 Outpatient follow up requested upon DC in 4-6 weeks. Recommend pacemaker by cardiology for persistent bradycardia and associated dyspnea with activity. Would sign off. Will see her as outpt. Call if questions.
[2018-03-02] MEDS: metFORMIN 500 MG TAB PO SCH ×3 (15:18→17:08)
[2018-03-02] MEDS: Fluticasone Propionate Nasal Spray 16 gm Bottle NASAL SCH (15:18)
[2018-03-02] MEDS: Furosemide 40 MG TAB PO SCH (15:18)
[2018-03-02] MEDS: Aspirin 325 MG TAB PO SCH (15:19)
[2018-03-02] MEDS: Losartan 25 MG TAB PO SCH (15:25)
[2018-03-02] MEDS: Amiodarone 200 MG TAB PO SCH (15:25)
[2018-03-02] MEDS: Ubidecarenone 50 MG CAP PO SCH (15:26)
--- NOTE | 2018-03-02 18:06 | PDOC.PN ---
- Subjective Encounter Start Date: 03/02/18 Encounter Start Time: 17:50 Subjective: f/u s/p PM placement due to persistent bradycardia and dyspnea. -: No new complaints. Some pain at PM site. - Objective MAR Reviewed: Yes Vital Signs & Weight: Vital Signs (12 hours) Temp Pulse Resp BP BP Pulse Ox 03/02/18 15:15 97.7 F 60 15 119/53 L 96 03/02/18 11:57 98.0 F 49 L 16 107/46 L 95 03/02/18 08:45 97.4 F L 51 L 17 141/57 H 93 L Weight Weight 160 lb I&O: 03/01/18 03/02/18 03/03/18 06:59 06:59 06:59 Intake Total 1040 1310 240 Output Total 980 1480 225 Balance 60 -170 15 Result Diagrams: 03/01/18 05:09 03/01/18 05:09 Additional Labs: Accuchecks 03/02/18 12:10 POC Glucose 154 H EKG Reviewed by me: Yes (Tele - A-paced in 60's) Phys Exam - Physical Examination Constitutional: NAD HEENT: PERRLA, sclera anicteric, oral pharynx no lesions Neck: no nodes, no JVD, supple, full ROM R upper chest with incision intact, + edema Respiratory: no wheezing, no rales, no rhonchi, clear to auscultation bilateral S1, S2 Cardiovascular: RRR, no significant murmur, no rub, gallop Gastrointestinal: soft, non-tender, no distention, positive bowel sounds Musculoskeletal: no edema, pulses present Neurological: normal sensation, moves all 4 limbs Psychiatric: normal affect, A&O x 3 Skin: normal turgor, cap refill <2 seconds Dx/Plan (1) Sick sinus syndrome Code(s): I49.5 - SICK SINUS SYNDROME Status: Chronic Comment: s/p MRI compatible pacemaker 03/02/18, continue tele monitoring (2) Acute and chronic respiratory failure with hypoxia Code(s): J96.21 - ACUTE AND CHRONIC RESPIRATORY FAILURE WITH HYPOXIA Status: Acute Comment: Baseline O2 requirement currently (3) Acute on chronic diastolic ACC/AHA stage C congestive heart failure Code(s): I50.33 - ACUTE ON CHRONIC DIASTOLIC (CONGESTIVE) HEART FAILURE Status : Acute Comment: Stable currently, continue Lasix, ASA, Losartan (4) Atrial flutter Code(s): I48.92 - UNSPECIFIED ATRIAL FLUTTER Status: Acute Comment: s/p CV this admission, current sinus bradycardia, Amiodarone (5) Diabetes type 2, controlled Code(s): E11.9 - TYPE 2 DIABETES MELLITUS WITHOUT COMPLICATIONS Status: Chronic Qualifiers: Diabetes mellitus halfway insulin use: with fire investigator use Diabetes mellitus complication status: without complication Qualified Code(s): E11.9 - Type 2 diabetes mellitus without complications; 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
--- NOTE | 2018-03-02 19:47 | RAD ---
RADIOGRAPH CHEST 1 VIEW: HISTORY: An 82-year-old female, status post cardiac device placement. FINDINGS: The thoracic aorta is tortuous and ectatic. There is no evidence of air space density, pneumothorax, or pulmonary edema. The lateral costophrenic angles are sharp. There are sternotomy wires. There is a dual-lead left subclavian pacemaker. IMPRESSION: 1) No acute pulmonary findings. 2) Ectasia of thoracic aorta. 3) Status post open heart surgery. 4) Pacemaker. deyanira [] POS: YI
[2018-03-02] MEDS: Cipro 250 MG TAB PO SCH (20:27)
[2018-03-02] MEDS: ALPRAZolam 0.5 MG TAB PO PRN (20:28)
[2018-03-02] MEDS: traMADol HCl 50 MG TAB PO PRN (20:28)
[2018-03-02] MEDS: Polyethylene Glycol 3350 17 GM Packet PO SCH (20:29)
[2018-03-03] MEDS: Cipro 250 MG TAB PO SCH (05:28)
[2018-03-03] MEDS: Levothyroxine Sodium 75 MCG TAB PO SCH (05:28)
[2018-03-03] MEDS: traMADol HCl 50 MG TAB PO PRN (05:31)
[2018-03-03] MEDS: metFORMIN 500 MG TAB PO SCH (09:05)
[2018-03-03] MEDS: Furosemide 40 MG TAB PO SCH (09:05)
[2018-03-03] MEDS: Aspirin 325 MG TAB PO SCH (09:06)
[2018-03-03] MEDS: Losartan 25 MG TAB PO SCH (09:06)
[2018-03-03] MEDS: Fluticasone Propionate Nasal Spray 16 gm Bottle NASAL SCH (09:06)
[2018-03-03] MEDS: Amiodarone 200 MG TAB PO SCH (09:06)
[2018-03-03] MEDS: Ubidecarenone 50 MG CAP PO SCH (09:07)
[2018-03-03 11:25] VITALS: BP 124/52; TEMP 97.6
[2018-03-03 12:05] VITALS: BMI 26.9
--- NOTE | 2018-03-04 05:11 | DIS ---
DATE OF ADMISSION: 02/20/2018 DATE OF DISCHARGE: 03/03/2018 DISCHARGE DIAGNOSES: 1. Sick sinus syndrome status post pacemaker placement, 03/02/2018. 2. [id number] hypoxic respiratory failure with chronic oxygen supplementation at 2 L/minute by nasal cannula. 3. [id number] diastolic congestive heart failure, stage C, stable. 4. Atrial flutter, status post cardioversion. 5. Diabetes mellitus type 2, stable. 6. Hypothyroidism, stable. CONSULTATIONS: 1. Dr. Beyer and Dr. Mccormick with Cardiology Service. 2. Dr. Cruz with Electrophysiology Service. PERTINENT LAB AND X-RAY FINDINGS: Creatinine ranged between 1.19 to 1.46, estimated GFR ranged between 34 to 43. Magnesium level 2.5. CBC showed hemoglobin ranged between 8.[address] angiogram of the chest dated 02/20/2018 showed cardiomegaly with pulmonary edema with small bilateral pleural effusions. No evidence for pulmonary embolus. 2D transthoracic echocardiogram dated 02/23/2018, showed ejection fraction of 55 to 60 percent. Normal functioning bioprosthetic mitral valve. The transesophageal echocardiogram dated 02/25/2018 showed preserved ejection fraction, left atrial enlargement, bioprosthetic aortic valve. No thrombus in the atrium or left atrial appendage. HOSPITAL COURSE: The patient was initially admitted after presenting with generalized weakness. The patient's presentation consistent with decompensated diastolic congestive heart failure in the context of known chronic hypoxic respiratory failure. The patient was placed on IV Lasix and evaluated by the Cardiology Service. The patient continued on IV Lasix with overall improvement in fluid management with diuresis. The patient also continued to receive pulmonary supportive management during the hospital course. The patient was evaluated by the Electrophysiology Service during her hospital course due to history of atrial arrhythmias including atrial fibrillation and flutter. The patient was deemed an appropriate candidate and undergoing transesophageal echocardiogram followed by cardioversion. The patient remained bradycardic after placement on amiodarone therapy and monitored on the telemetry unit. Due to patient's persistent general weakness, bradycardia, and dyspnea, the patient was deemed an appropriate candidate to undergo a pacemaker placement. The patient underwent successful dual-chamber pacemaker placement on 03/02/2018 without complication. Telemetry monitoring showed an atrial paced rhythm with heart rates in the 60s and the patient remained clinically stable postoperatively. I have examined the patient at the time of discharge and discussed followup instructions. The patient verbalized understanding and agreement, ready for discharge on 03/03/2018. DISCHARGE MEDICATIONS: 1. Alprazolam 0.5 mg p.o. at bedtime p.r.n. 2. Amiodarone 200 mg p.o. daily. 3. Flonase 1 spray in each naris daily. 4. Lasix 40 mg p.o. daily. 5. Prevacid 15 mg p.o. b.i.d. 6. Levothyroxine 75 mcg p.o. daily. 7. Cozaar 50 mg p.o. daily. 8. Metformin 500 mg p.o. b.i.d.. 9. Coenzyme Q10 200 mg p.o. daily. 10. Enteric-coated aspirin 325 mg p.o. daily. 11. Ciprofloxacin 500 mg p.o. b.i.d. x5 days. 12. MiraLAX 17 g p.o. at bedtime p.r.n. 13. Tramadol 50 mg p.o. q.6 hours p.r.n. pain. 14. Praluent 75 mg subcutaneously twice monthly. FOLLOWUP: The patient may follow up with her primary care provider, Dr. Jose Flores on 03/09/2018 at 3:00 p.m. The patient may also follow up with Dr. Marquis Mccormick with [facility] on 04/23/2018 at 2:30 p.m. The patient will follow up with cardiac rehabilitation in [place], [place]. The patient also given referral to [facility]. CONDITION ON DISCHARGE: Fair. ACTIVITY: Ad-mandy. DIET: Heart healthy and ADA. CODE STATUS: Full. DISPOSITION: Home 03/03/2018. Total time preparing and coordinating discharge, 35 minutes. Job ID: [id number]
--- NOTE | 2018-03-04 22:58 | CCL ---
PERMANENT PACEMAKER INSERTION USING FLUOROSCOPY: 03/02/18 INDICATION: Severe bradycardia, sick sinus syndrome, status post cardioversion. DESCRIPTION OF PROCEDURE: The patient was brought to the Cardiac High School Mathematics Teacher and the left subclavian ar ea was prepped and draped. Versed 1 mg and Fentanyl 25 mg was given intravenously for moderate consci ous sedation with monitoring during the procedure. 1% Lidocaine was infiltrated. A J-wire was place d into the left subclavian vein and advanced into the superior vena cava. Pacemaker pocket was manuf actured using blunt and sharp dissection with electrocautery for hemostasis. An antibiotic solution soaked gauze was placed in the pocket. A second J-wire was then placed into the left subclavian vein . Using 7-Faroese peel away sheath, the atrial and ventricular leads were inserted. The right ventricula r lead was screwed into the right ventricular apex and the right atrial lead was screwed into the rig ht atrium. Right ventricular lead - R-wave 4.5, impedance 580, threshold 0.9 volts. Right atrial lead - P-wave 2.0, impedance 429, threshold 0.9 volts. The tabs were removed from both suture stays and the leads were secured in place with two sutures of 0 silk each. The antibiotic solution gauze was removed fro m the pocket and this was irrigated with copious amounts of antibiotic solution. The leads were brandy ched to the pacemaker generator and this was placed into the pocket and secured in place with one sut ure of 0 silk. The incision was then closed using two layers of 3-0 Vicryl, one layer of 4-0 Vicryl. Dermabond was placed on the incision. The patient tolerated the procedure well.
== END 2018-03-03 12:20 | disposition home or self-care (01) | DRG 242 ==
LOC: ERS 18:54 → ERHOLD 20:26 → 2NO 02-21 14:22
PROVIDERS: ADMIT Family Medicine; ATTEND Family Medicine
PROC: 5A2204Z Restoration of Cardiac Rhythm, Single (ICD-10-PCS; 2018-02-25)
PROC: 0JH606Z Insertion of Pacemaker, Dual Chamber into Chest Subcutaneous Tissue and Fascia, Open Approach (ICD-10-PCS; principal; 2018-03-02)
PROC: 02H63JZ Insertion of Pacemaker Lead into Right Atrium, Percutaneous Approach (ICD-10-PCS; 2018-03-02)
PROC: 02HK3JZ Insertion of Pacemaker Lead into Right Ventricle, Percutaneous Approach (ICD-10-PCS; 2018-03-02)
DX: I13.0 Hypertensive heart and chronic kidney disease with heart failure and stage 1 through stage 4 chronic kidney disease, or unspecified chronic kidney disease (principal); I50.33 Acute on chronic diastolic (congestive) heart failure; J96.21 Acute and chronic respiratory failure with hypoxia; N17.9 Acute kidney failure, unspecified; I48.92 Unspecified atrial flutter; N18.2 Chronic kidney disease, stage 2 (mild); I25.10 Atherosclerotic heart disease of native coronary artery without angina pectoris; E78.5 Hyperlipidemia, unspecified; K21.9 Gastro-esophageal reflux disease without esophagitis; E03.9 Hypothyroidism, unspecified; F41.9 Anxiety disorder, unspecified; F32.9 Major depressive disorder, single episode, unspecified; D64.9 Anemia, unspecified; I48.2 Chronic atrial fibrillation; I49.5 Sick sinus syndrome; Z99.81 Dependence on supplemental oxygen; Z86.711 Personal history of pulmonary embolism; Z88.6 Allergy status to analgesic agent; Z88.1 Allergy status to other antibiotic agents; Z88.0 Allergy status to penicillin; Z88.8 Allergy status to other drugs, medicaments and biological substances; Z79.84 Long term (current) use of oral hypoglycemic drugs; Z79.82 Long term (current) use of aspirin; Z79.899 Other long term (current) drug therapy; Z95.1 Presence of aortocoronary bypass graft; Z95.5 Presence of coronary angioplasty implant and graft; Z95.2 Presence of prosthetic heart valve
CPT/HCPCS: 33208; 36415; 36416; 71045; 71275; 80048; 80053; 80061; 82805; 83735; 84443; 85014; 85018; 85025; 85049; 90471; 90662; 92960; 93005; 93010; 93306; 93312; 93798; 96374; 99152; 99153; C1785; C1898; G0008; J1940; J1956; J2001; J2250; J2704; J3010; J3370; J3490

== ENCOUNTER 2018-07-28 00:59 | Inpatient (IN) | payer MEDICARE, OTHER ==
[2018-07-28 01:14] VITALS: BMI 27.5
[2018-07-28 01:51] LABS: Troponin I Less than 0.010 ng/mL (< 0.028)
[2018-07-28] MEDS ORDERED: Ondansetron ODT 4 MG TAB SL PRN (01:55)
[2018-07-28] MEDS ORDERED: Acetaminophen 325 MG TAB PO PRN ×2 (01:55→07:24)
[2018-07-28] MEDS ORDERED: Ondansetron PF 4 MG/2 ML Vial IVP PRN ×2 (01:55→07:24)
[2018-07-28 04:53] LABS: #Eosinphils 0.7 thou/uL (0.0-0.7); #Monocytes 0.6 thou/uL (0.11-0.59); #Neutrophils 4.3 thou/uL (1.40-6.50); %Basophils 0.2 % (0.0-1.0); %Eosinophils 10.2 % (0.0-10.0); %Lymphocytes 15.1 % (21.0-51.0); %Monocytes 9.8 % (0.0-10.0); %Neutrophils 64.7 % (42.0-75.0); Hemoglobin 8.3 g/dL (12.0-16.0); Mean Corpuscular HGB CONC 30.1 g/dL (32.0-36.0); Mean Corpuscular Hemoglobin 24.2 pg (27.0-31.0); Mean Corpuscular Volume 80.3 fL (78.0-98.0); Mean Platelet Volume 10.1 fL (7.4-10.4); Platelet Count 136 thou/uL (130-400); RBC Distribution Width 16.1 % (11.5-14.5); Red Blood Cell (RBC) Count 3.44 mill/uL (4.20-5.40); White Blood Cell (WBC) Count 6.6 thou/uL (4.8-10.8)
[2018-07-28 05:05] LABS: Anion Gap 16 mmol/L (10-20); BUN (Urea Nitrogen) 31 mg/dL (9.8-20.1); Calc. Creatinine Clearance 36 mL/min (70-130); Calcium 8.7 mg/dL (7.8-10.44); Carbon Dioxide 26 mmol/L (23-31); Chloride 101 mmol/L (98-107); Estimated GFR-MDRD 36; Glucose 145 mg/dL (83-110); Potassium 3.9 mmol/L (3.5-5.1); Sodium 139 mmol/L (136-145)
[2018-07-28 05:11] LABS: Troponin I Less than 0.010 ng/mL (< 0.028)
[2018-07-28] MEDS ORDERED: Furosemide 40 MG/4 ML VIAL SLOW IVP SCH (06:00)
[2018-07-28] MEDS: Levothyroxine Sodium 75 MCG TAB PO SCH (06:22)
[2018-07-28] MEDS ORDERED: Calcium Carbonate 500 MG ChewTAB PO PRN (07:24)
[2018-07-28] MEDS ORDERED: Loperamide HCl 2 MG CAP PO PRN ×2 (07:24)
[2018-07-28] MEDS ORDERED: Zolpidem Tartrate 5 MG TAB PO PRN ×2 (07:24)
[2018-07-28] MEDS ORDERED: Sodium Chloride 0.65% Nasal 44 ML BOT EA NARE PRN (07:24)
[2018-07-28] MEDS ORDERED: Cepastat Lozenges 1 LOZ PO PRN (07:24)
[2018-07-28] MEDS ORDERED: Ondansetron ODT 4 MG TAB PO PRN (07:24)
[2018-07-28] MEDS ORDERED: Nitroglycerin 0.4 MG TAB (25 Tab Bottle) SL PRN (07:24)
[2018-07-28] MEDS ORDERED: Diabetic Tussin 200 MG/10 ML UDCUP PO PRN (07:24)
[2018-07-28] MEDS ORDERED: HYDROcodone/Acetaminophen 5/325 mg Tablet PO PRN (07:24)
[2018-07-28] MEDS ORDERED: hydrALAZINE 20 MG/ML VIAL SLOW IVP PRN (07:24)
[2018-07-28] MEDS ORDERED: Senokot S 8.6-50 MG TAB PO PRN (07:24)
[2018-07-28] MEDS ORDERED: Bisacodyl 10 MG SUPP PR PRN ×2 (07:24)
[2018-07-28] MEDS ORDERED: Loratadine 10 MG TAB PO PRN (07:24)
[2018-07-28] MEDS ORDERED: Fluticasone Propionate Nasal Spray 16 gm Bottle NASAL SCH (09:00)
[2018-07-28] MEDS ORDERED: Famotidine 20 MG TAB PO SCH (09:00)
[2018-07-28] MEDS: Ubidecarenone 50 MG CAP PO SCH (10:28)
[2018-07-28] MEDS: Aspirin 325 MG TAB PO SCH (10:28)
[2018-07-28] MEDS: Fluticasone Propionate Nasal Spray 16 gm Bottle NASAL SCH (10:29)
[2018-07-28] MEDS: Losartan 25 MG TAB PO SCH (10:29)
[2018-07-28] MEDS: Enoxaparin Sodium 30 MG/0.3 ML SYRINGE SC SCH (10:29)
[2018-07-28] MEDS: Amiodarone 200 MG TAB PO SCH (10:29)
--- NOTE | 2018-07-28 11:04 | HP ---
PRIMARY CARE PHYSICIAN: Jose Flores MD REASON FOR ADMISSION: Transferred from [facility] for CHF exacerbation. HISTORY OF PRESENT ILLNESS: An 82-year-old female who has underlying history of chronic diastolic heart failure, who initially went to [facility] for evaluation of shortness of breath. The patient reports that since Friday, she has increasing shortness of breath. She is not able to walk long distances. She denies any associated chest pain. Normally, she was able to walk about one or two blocks without any problem, but now, she is only able to walk a few steps and then she gets out of breath. She is not able to do all her routine daily activities of life because of shortness of breath. She reports that she gained almost 10 pounds. She does report orthopnea and occasional PND. She does report lower extremity pitting edema. She denies any palpitation or syncope. She denies any fever or chills. She denies any nausea, vomiting, diarrhea. The patient reports that on , she had routine blood test done, and subsequently, the patient is supposed to see Dr. Mccormick today, but she is in the hospital and that is why she canceled her appointment, and she would like to see Dr. Mccormick before discharge. The patient denies any UTI symptoms. She denies any constipation or diarrhea. She is taking all medication as prescribed. The patient does use oxygen at home 2 L nasal cannula all the time. The patient was evaluated at [facility] where she was given Rocephin, Lasix 40 mg, nitroglycerin patch, and aspirin 324 mg. Subsequently, she was transferred to our emergency room for evaluation, and she was admitted to telemetry floor. REVIEW OF SYSTEMS: CONSTITUTIONAL: Negative for weight loss or gain, ability to conduct usual activities. SKIN: Negative for rash, itching. EYES: Negative for double vision, pain. ENT/MOUTH: Negative for nose bleeding, neck stiffness, pain, tenderness. CARDIOVASCULAR: Negative for palpitations, dyspnea on exertion, orthopnea. RESPIRATORY: Negative for shortness of breath, wheezing, cough, hemoptysis, fever or night sweats. GASTROINTESTINAL: Negative for poor appetite, abdominal pain, heartburn, nausea, vomiting, constipation, or diarrhea. GENITOURINARY: Negative for urgency, frequency, dysuria, nocturia. MUSCULOSKELETAL: Negative for pain, swelling. NEUROLOGIC/PSYCHIATRIC: Negative for anxiety, depression. ALLERGY/IMMUNOLOGIC: Negative for skin rash, bleeding tendency. Please see my HPI for pertinent positives and negatives. All other review of systems reviewed and negative except as mentioned in HPI. PAST MEDICAL HISTORY: Coronary artery disease with history of CABG; history of atrial flutter; chronic stage C diastolic heart failure; hypertension; history of mitral valve replacement; history of pulmonary embolism in 2000; chronic respiratory failure, on home oxygen therapy; chronic normocytic anemia; gastroesophageal reflux disease; CKD, stage 2; hyperlipidemia; and hypothyroidism. PAST PSYCHIATRIC HISTORY: Anxiety and depression. PAST SURGICAL HISTORY: History of transesophageal echocardiography and cardioversion, cardiac catheterization with stent placement, CABG, bilateral cataract surgeries, abdominal hysterectomy, cholecystectomy, and tonsillectomy. ALLERGIES: PENICILLIN, MACROBID, AND PENTAZOCINE. FAMILY HISTORY: Positive for coronary artery disease among several family members. SOCIAL HISTORY: The patient is a former smoker. She denies any current tobacco, alcohol, or illicit drug abuse. CURRENT HOME MEDICATIONS: 1. Xanax 0.5 mg p.o. at bedtime p.r.n. 2. Amiodarone 200 mg daily. 3. Flonase nasal spray daily. 4. Lasix 40 mg daily. 5. Prevacid 15 mg b.i.d. 6. Synthroid 75 mcg p.o. daily. 7. Losartan 50 mg p.o. daily. 8. Coenzyme Q10 200 mg p.o. daily. 9. Aspirin 325 mg p.o. daily. 10. MiraLAX 17 g p.o. at bedtime. EMERGENCY ROOM TREATMENT: The patient was given Rocephin, Lasix, nitroglycerin patch, and aspirin. PHYSICAL EXAMINATION: VITAL SIGNS: On arrival, blood pressure 129/51, pulse 61, respiratory rate 24, temperature 98.0, and saturation 94% on 3 L oxygen. Weight 68 kg. GENERAL: The patient is currently alert and awake. No obvious acute distress. HEENT: Head; normocephalic, atraumatic. Eyes; pupils round, reactive to light. Extraocular muscle intact. ENT, oropharynx within normal limits. Moist mucous membranes. No oral lesion. No pharyngeal erythema. No exudate. NECK: Supple. Elevated JVP. No thyromegaly. No carotid bruit. LUNGS: Bibasilar few rales noted. No wheezing. No respiratory muscle in use. CARDIAC: S1 and S2 appear regular. Mitral valve prosthetic sound heard. No gallop. No rub. ABDOMEN: Soft. Bowel sounds present. Nontender. Nondistended. No organomegaly. No mass. No suprapubic tenderness. BACK: Unremarkable. No CVA tenderness. MUSCULOSKELETAL: Upper extremities, passive movement of all joints was normal. Lower extremities, bilateral lower extremity pitting edema noted, right more than left. NEUROLOGIC: Nonfocal examination. SKIN: No skin rash. HEMATOLOGICAL SYSTEM: No lymphadenopathy. PSYCHIATRIC: Normal affect. SIGNIFICANT LABORATORY DATA: EKG showing pacemaker rhythm. Chest x-ray; cardiomegaly without any acute process. CT angiography showing no evidence of PE, small right pleural effusion, and atelectasis. ASSESSMENT AND PLAN: 1. Acute on chronic diastolic congestive heart failure, ACC stage C. The patient will be treated with Lasix 40 mg IV b.i.d. We will repeat BMP, magnesium, and uric acid tomorrow. This patient has dyspnea on exertion, orthopnea, elevated BNP, as well as pulmonary vascular congestion clinically consistent with diastolic heart failure that will be treated with diuretic therapy. 2. Hypertension. We will continue losartan 50 mg p.o. daily. 3. Hypothyroidism. We will continue Synthroid 75 mcg p.o. daily, and we will check TSH tomorrow morning. 4. Paroxysmal atrial flutter/fibrillation. Continue amiodarone 200 mg p.o. daily, aspirin 325 mg p.o. daily, and Lovenox 30 mg subcu daily. Long-term anticoagulation will defer to Cardiology. 5. Gastroesophageal reflux disease. We will continue Protonix 40 mg p.o. daily. 6. Anxiety and depression. We will continue Xanax 0.5 mg p.o. at bedtime. 7. Chronic constipation. Continue MiraLAX 17 g p.o. daily. 8. Chronic kidney disease, stage 3. We will monitor renal function and replace electrolytes accordingly. 9. Anemia, normocytic, normochromic. We will continue ferrous sulfate 325 mg p.o. b.i.d. 10. Deep venous thrombosis prophylaxis, Lovenox 30 mg subcu daily. 11. Gastrointestinal prophylaxis, Protonix 40 mg p.o. daily. 12. Code status, the patient is full code. The patient does not have any surrogate decision maker. 13. Chronic respiratory failure, on home oxygen. The patient will resume her home oxygen requirement at home with nasal cannula oxygen. DISPOSITION PLAN: Based on clinical course, the patient prefers Dr. Mccormick to see her before discharge. Job ID: [id number]
[2018-07-28] MEDS: Furosemide 40 MG/4 ML VIAL SLOW IVP SCH (14:49)
[2018-07-28] MEDS: Ferrous Sulfate 325 MG TAB PO SCH (17:46)
[2018-07-28] MEDS: Ciprofloxacin 500 MG TAB PO SCH (20:36)
[2018-07-28] MEDS: Polyethylene Glycol 3350 17 GM Packet PO SCH (20:37)
[2018-07-29 04:56] LABS: #Eosinphils 0.6 thou/uL (0.0-0.7); #Lymphocytes 0.8 thou/uL (1.20-3.40); #Monocytes 0.5 thou/uL (0.11-0.59); #Neutrophils 3.5 thou/uL (1.40-6.50); %Basophils 0.6 % (0.0-1.0); %Eosinophils 10.7 % (0.0-10.0); %Lymphocytes 15.4 % (21.0-51.0); %Monocytes 8.6 % (0.0-10.0); %Neutrophils 64.7 % (42.0-75.0); Hemoglobin 8.8 g/dL (12.0-16.0); Mean Corpuscular HGB CONC 30.1 g/dL (32.0-36.0); Mean Corpuscular Volume 79.8 fL (78.0-98.0); Mean Platelet Volume 9.8 fL (7.4-10.4); Platelet Count 136 thou/uL (130-400); RBC Distribution Width 16.5 % (11.5-14.5); Red Blood Cell (RBC) Count 3.65 mill/uL (4.20-5.40); White Blood Cell (WBC) Count 5.5 thou/uL (4.8-10.8)
[2018-07-29 05:17] LABS: ALT (SGPT) 11 U/L (8-55); AST (SGOT) 21 U/L (5-34); Albumin 4.1 g/dL (3.4-4.8); Alkaline Phosphatase 100 U/L (40-150); Anion Gap 15 mmol/L (10-20); BUN (Urea Nitrogen) 29 mg/dL (9.8-20.1); Bilirubin, Total 0.5 mg/dL (0.2-1.2); Calc. Creatinine Clearance 36 mL/min (70-130); Calcium 9.2 mg/dL (7.8-10.44); Carbon Dioxide 28 mmol/L (23-31); Chloride 100 mmol/L (98-107); Estimated GFR-MDRD 35; Globulin 2.8 g/dL (2.4-3.5); Glucose 148 mg/dL (83-110); Magnesium 2.4 mg/dL (1.6-2.6); Protein, Total 6.9 g/dL (6.0-8.3); Sodium 139 mmol/L (136-145); Uric Acid 8.8 mg/dL (2.6-6.0)
[2018-07-29] MEDS: Furosemide 40 MG/4 ML VIAL SLOW IVP SCH ×2 (06:20→13:20)
[2018-07-29] MEDS: Levothyroxine Sodium 75 MCG TAB PO SCH (06:20)
[2018-07-29] MEDS: Ciprofloxacin 500 MG TAB PO SCH ×2 (06:20→20:57)
[2018-07-29] MEDS: Enoxaparin Sodium 30 MG/0.3 ML SYRINGE SC SCH (08:51)
[2018-07-29] MEDS: Ubidecarenone 50 MG CAP PO SCH (08:53)
[2018-07-29] MEDS: Fluticasone Propionate Nasal Spray 16 gm Bottle NASAL SCH (08:53)
[2018-07-29] MEDS: Aspirin 325 MG TAB PO SCH (08:54)
[2018-07-29] MEDS: ALPRAZolam 0.5 MG TAB PO PRN ×2 (08:54→20:58)
[2018-07-29] MEDS: Losartan 25 MG TAB PO SCH (08:54)
[2018-07-29] MEDS: Amiodarone 200 MG TAB PO SCH (08:54)
[2018-07-29] MEDS: Ferrous Sulfate 325 MG TAB PO SCH ×2 (08:55→16:51)
--- NOTE | 2018-07-29 16:14 | PDOC.PN ---
- Subjective Encounter Start Date: 07/29/18 Encounter Start Time: 16:00 Subjective: f/u for diast CHF on IV Lasix. States feeling better and less dyspnea. -: Remains on baseline O2 requirement by NC. - Objective Resuscitation Status - Order Detail: 07/28/18 02:55 Resuscitation Status Routine Resuscitation Status: FULL: Full Resuscitation MAR Reviewed: Yes Vital Signs & Weight: Vital Signs (12 hours) Temp Pulse Resp BP Pulse Ox 07/29/18 15:34 97.4 F L 66 20 123/57 L 97 07/29/18 11:16 98.1 F 65 12 140/60 98 07/29/18 07:05 97.7 F 66 20 165/68 H 96 07/29/18 06:24 138/60 Weight Weight 168 lb 4.8 oz I&O: 07/28/18 07/29/18 07/30/18 06:59 06:59 06:59 Intake Total 600 1250 Output Total 300 900 Balance 300 350 Result Diagrams: 07/29/18 04:30 07/29/18 04:30 Additional Labs: Microbiology 07/27/18 21:50 Urine voided Urine Culture - Preliminary Presumptive Escherichia coli Laboratory Tests 02/21/18 02/22/18 02/24/18 03:43 04:48 04:31 Hgb 9.5 L 9.1 L Creatinine 1.22 H Uric Acid Magnesium 02/25/18 02/26/18 02/26/18 04:53 04:45 04:45 Hgb 8.7 L Creatinine 1.36 H 1.28 H Uric Acid Magnesium 02/27/18 02/28/18 07/28/18 04:54 05:06 04:37 Hgb Creatinine 1.46 H 1.29 H 1.41 H Uric Acid Magnesium 2.5 07/28/18 07/29/18 04:37 04:30 Hgb 8.3 L Creatinine Uric Acid 8.8 H Magnesium Radiology Reviewed by me: Yes (Echo - EF 55-60%) EKG Reviewed by me: Yes (Tele - AV paced) Phys Exam - Physical Examination Constitutional: NAD HEENT: PERRLA, sclera anicteric, oral pharynx no lesions Neck: no nodes, no JVD, supple, full ROM Respiratory: no wheezing, no rales, no rhonchi, clear to auscultation bilateral S1, S2 Cardiovascular: RRR, no significant murmur, no rub, gallop Gastrointestinal: soft, non-tender, no distention, positive bowel sounds mild LE edema R>LLE Musculoskeletal: pulses present Neurological: normal sensation, moves all 4 limbs Psychiatric: A&O x 3 Skin: normal turgor, cap refill <2 seconds Dx/Plan (1) Acute on chronic diastolic ACC/AHA stage C congestive heart failure Code(s): I50.33 - ACUTE ON CHRONIC DIASTOLIC (CONGESTIVE) HEART FAILURE Status : Acute Comment: Suspected, EF 55-60%, continue Lasix IV, monitor daily weight and I/O's (2) Sick sinus syndrome Code(s): I49.5 - SICK SINUS SYNDROME Status: Chronic Comment: s/p MRI compatible pacemaker 03/02/18, continue tele monitoring, consult Cardiology for any further recommendations (3) Hypothyroidism Code(s): E03.9 - HYPOTHYROIDISM, UNSPECIFIED Status: Chronic Qualifiers: Hypothyroidism type: unspecified Comment: Continue Levothyroxine 75mcg daily (4) Chronic respiratory failure with hypoxia Code(s): J96.11 - CHRONIC RESPIRATORY FAILURE WITH HYPOXIA Status: Chronic Comment: Continue O2 @ 2L/min NC, baseline home requirement (5) UTI (urinary tract infection) Status: Acute Comment: Suspected with GNR, continue Cipro pending final Ucx results - Plan 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
[2018-07-29] MEDS: Polyethylene Glycol 3350 17 GM Packet PO SCH (20:57)
--- NOTE | 2018-07-30 01:00 | CON ---
DATE OF CONSULTATION: HISTORY OF PRESENT ILLNESS: Krista Pearson (Valorie Pearson as register in my office notes) is an 82-year-old white female who has been following for many, many years. She had CABG x3 in 2000, followed by pulmonary embolism in November 2000. She had stent placement in the right coronary artery and the circumflex after grafts closed in April 2001. She underwent redo CABG x1 to the right coronary artery ( circumflex system too small to re-bypass) and bioprosthetic mitral valve replacement. Then in June 2010, she underwent a redo mitral valve replacement for severe mitral bioprosthetic valve stenosis. She has had atrial arrhythmias and during her last admission in February 2018, underwent electrical cardioversion as well as loading with amiodarone. This was then followed by pacemaker placement. She states that since being home, she did fairly well until the past three or four weeks, she has had progressive dyspnea, some increase in her peripheral edema and episodes of PND or orthopnea. PAST MEDICAL HISTORY: Coronary artery disease, diastolic heart failure, hypertension, history of pulmonary embolism, history of COPD, chronic respiratory failure on home O2, history of GERD, chronic kidney disease, hypothyroidism, and anxiety. PAST SURGICAL HISTORY: Operations, pacemaker placement, bilateral cataract surgery, abdominal hysterectomy, cholecystectomy, tonsillectomy. She had CABG x3, followed by CABG x1 with mitral valve replacement and then another surgery for redo mitral valve replacement. ALLERGIES: NONSTEROIDALS, MACROBID, PENICILLIN, AND TALWIN. MEDICATIONS: Include; 1. Alprazolam 0.5 at bedtime. 2. Amiodarone 200 mg daily. 3. Aspirin 325 daily. 4. Cipro 500 b.i.d., which she has finished. 5. Flonase. 6. Lasix 40 daily. 7. Prevacid 15 mg b.i.d. 8. Levothyroxine 75 mcg daily. 9. Losartan 50 daily. 10. CoQ10. 11. MiraLAX. SOCIAL HISTORY: She does not smoke. REVIEW OF SYSTEMS: A 10-point review of systems is otherwise unremarkable. PHYSICAL EXAMINATION: VITAL SIGNS: Blood pressure 123/57, pulse 66. HEENT: PERRL. NECK: Supple. CHEST: Reveals crackles at the bases. CARDIOVASCULAR: S1, S2 normal without any S3 or S4. There is a 2/6 holosystolic murmur at the apex. ABDOMEN: Normal bowel sounds without tenderness. EXTREMITIES: Revealed 2+ pretibial edema on the right, 1+ pretibial edema on the left. NEUROLOGIC: Grossly intact. LABORATORY DATA: The pacemaker was interrogated and she has had significant increase in episodes of atrial tachycardia since second the week in June. Also, there has been essentially 100% ventricular pacing ever since she went into atrial tachycardia. EKG reveals ventricular pacing. Hemoglobin 8.8, hematocrit 29.1, white count 5500, platelets 136,000. Sodium 139, potassium 4.0, chloride 100, carbon dioxide 28, BUN 29, creatinine 1.42. Cardiac enzymes are negative x4. IMPRESSION: 1. Cardioversion for atrial fibrillation February 2018 and now with significantly prolonged episodes of atrial tachycardia. 2. Status post pacemaker placement. Since she has been in atrial tachycardia, she has been ventricularly pacing 100% of the time, which probably reduces her ejection fraction significantly leading to her current symptoms. 3. Status post mitral valve replacement twice. 4. Status post CABG, stents, etc., as outlined above. 5. Hypertension. 6. Hypercholesterolemia. 7. Diabetes. 8. Former smoker. 9. Obesity. 10. Chronic anemia and history of gastrointestinal bleeding when she was anticoagulated with Xarelto. 11. Hypothyroidism. PLAN: The patient will continue to be monitored and diuresed. Echocardiogram will be performed to reassess her left ventricular function when she is ventricularly paced. As I see it, there are three potential options. 1. Would be to consider atrial fibrillation ablation; however, she cannot be anticoagulated. 2. Would be to repeat cardioversion with somewhat increased risk since she is not anticoagulated in the hopes that she will continue to maintain sinus rhythm on the amiodarone. 3. Consideration of upgrade to a biventricular pacemaker if her ejection fraction has fallen with ventricular pacing and just let her remain in atrial tachycardia. These options will be discussed with Electrophysiology and I will have them consult in the morning. Job ID: [id number] [facility]
[2018-07-30] MEDS: Furosemide 40 MG/4 ML VIAL SLOW IVP SCH ×2 (05:28→14:55)
[2018-07-30] MEDS: Ciprofloxacin 500 MG TAB PO SCH (05:29)
[2018-07-30] MEDS: Senokot S 8.6-50 MG TAB PO PRN (05:29)
[2018-07-30] MEDS: Levothyroxine Sodium 75 MCG TAB PO SCH (05:29)
[2018-07-30] MEDS: Ferrous Sulfate 325 MG TAB PO SCH ×2 (08:35→18:21)
[2018-07-30] MEDS: Amiodarone 200 MG TAB PO SCH (08:35)
[2018-07-30] MEDS: Aspirin 325 MG TAB PO SCH (08:35)
[2018-07-30] MEDS: Ubidecarenone 50 MG CAP PO SCH (08:36)
[2018-07-30] MEDS: Losartan 25 MG TAB PO SCH (08:36)
[2018-07-30] MEDS: Fluticasone Propionate Nasal Spray 16 gm Bottle NASAL SCH (08:36)
[2018-07-30] MEDS: Enoxaparin Sodium 30 MG/0.3 ML SYRINGE SC SCH (08:37)
--- NOTE | 2018-07-30 16:07 | CON ---
DATE OF CONSULTATION: 07/30/2018 HISTORY OF PRESENT ILLNESS: I am seeing this Ms. 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 Her problems are; 1. Progressive dyspnea, possible CHF. 2. Recurrent atrial arrhythmias. a. History of persistent atrial fibrillation, on amiodarone. b. Recurrent atrial arrhythmias, possible atypical atrial flutter/atrial tachycardia episodes noted since July 2018. 3. History of mitral valve disease with recurring redo mitral valve replacement in June 2010. 4. Sinus node disease prompting a dual-chamber pacemaker implantation in February 2018, [employer]onic Marni device. 5. Coronary artery disease with bypass grafting surgery in 2010. 6. History of GI bleed recurrence with Entresto anticoagulation with mostly on Xarelto and also on a short trial on Eliquis with slight hemoglobin drop. 7. Chronic pulmonary disease with history of COPD, prior smoking, and oxygen dependence. 8. Type 2 diabetes, hypertension, hyperlipidemia. 9. Hypothyroidism. 10. Chronic kidney disease. MEDICATIONS AT HOME: Include, 1. Ubidecarenone. 2. Lansoprazole. 3. Levothyroxine. 4. Alprazolam. 5. Furosemide. 6. Aspirin. 7. Polyethylene glycol. 8. Losartan. 9. Fluticasone. 10. Amiodarone. 11. Cipro. SUBJECTIVE: Ms. Pearson is here admitted with progressive dyspnea and unable to get around. This has been going on for the last five days. She has had no dizziness or loss of consciousness. No stroke-like symptoms. No neurological deficits. She denies palpitations. She did gain 10 pounds of fluid. Does have some PND and orthopnea and has lower extremity edema. Denies stroke-like symptoms or bleeding issues. No fever, chills, or cough. Rest of 12-point system otherwise unremarkable. PAST MEDICAL HISTORY: As above. I have seen this lady repeatedly in the hospital with Dr. Mccormick back in 2017 as well as in 2019. SOCIAL HISTORY: The patient is a former smoker. Denies current tobacco, ETOH or drug abuse. FAMILY HISTORY: Significant for coronary artery disease in several family members. PAST SURGICAL HISTORY: Significant for GIA cardioversion, cardiac catheterization, stent placement, bypass surgery, cataract surgeries, abdominal hysterectomy, cholecystectomy, and tonsillectomy. PHYSICAL EXAMINATION: VITAL SIGNS: Blood pressure is 115/50, heart rate is 61, respiratory rate is 16 , temperature 97.5 degrees Fahrenheit. GENERAL: Alert and oriented woman, in no apparent distress. NECK: Supple. Jugular veins are slightly distended. CHEST: Coarse. No wheezing. No crackles. HEART: Sounds are regular to rate and rhythm. No murmur or gallop. Midsternal scar is noted. Kyphoscoliosis is noted. ABDOMEN: Benign. EXTREMITIES: Lower extremities without clubbing. A 1+ edema bilaterally. SKIN: Left epicardial pacemaker insertion site is well healed. DATABASE: The EKG revealed atrioventricular paced rhythm. LABORATORY DATA: Sodium 139, potassium 4, BUN is 29, creatinine 1.42. AST and ALT are 21 and 11. Troponin level is 0.01. TSH is 2.094. IMAGING STUDIES: Chest x-rays revealed cardiomegaly without acute cardiopulmonary process. The 2D echo is still pending. ASSESSMENT: Ms. Pearson is a pleasant 82-year-old woman with history of mitral valve disease with repeated mitral valve replacement surgery. She also has significant atrial arrhythmias, reasonably well suppressed with amiodarone in the past. More recently, more increasing episodes of atrial arrhythmias are seen, which can presume a slow atrial flutter/tachycardia. She is not on anticoagulation and has history of poor tolerance to anticoagulants with hemoglobin drops, but no clear gastrointestinal source was found in the past. The reason for dyspnea is unclear, likely multi-etiological related to her pulmonary disease as well as her possible congestive heart failure exacerbation. The gentle diuresis could be attempted. Also, the pulmonary status should be optimized. From the electrophysiology standpoint, high-grade RV pacing is noted recently, which may contribute to left ventricular dyssynchrony and subsequent right ventricular dysfunction. The 2D echocardiogram will be reviewed in this regard. We will attempt to reprogram the pacemaker to minimize right ventricular pacing if possible. Also, she has increasing frequency of atrial arrhythmias. Atrial antitachycardia pacing therapies could be turned on. If LV function is poor, Bi-V pacing therapy could be a consideration. There still remains the issue regarding her anticoagulation. Her CHADS-VASc score with hypertension, heart failure, cardiovascular disease, age and gender is a total of 6. She is likely to be at high risk for strokes even in the setting of slower atrial flutters, which she also had recently. Clearly she can have recurrent atrial fibrillation as well. Low-dose Eliquis could be considered to be restarted and monitor hemoglobin levels. Left atrial ablation is a difficult proposition in this lady with prior mitral valve disease and high stroke risk without anticoagulation. PLAN: 1. Check 2D echo. 2. Reprogram pacemaker. Turn atrial ATP therapies on. 3. Consider Bi-V pacing upgrade if high-grade RV pacing is expected to continue and siginificant LV dysfunction is seen. 4. Consider low-dose Eliquis therapy. Job ID: [id number] [facility]
--- NOTE | 2018-07-30 19:15 | PDOC.PN ---
- Subjective Encounter Start Date: 07/30/18 Encounter Start Time: 19:10 Subjective: f/u for acute/chronic CHF and malfunctioning PM. States feeling -: ok except for fatigue and dyspnea. - Objective Resuscitation Status - Order Detail: 07/28/18 02:55 Resuscitation Status Routine Resuscitation Status: FULL: Full Resuscitation MAR Reviewed: Yes Vital Signs & Weight: Vital Signs (12 hours) Temp Pulse Resp BP BP Pulse Ox 07/30/18 15:18 97.4 F L 61 20 116/74 99 07/30/18 11:36 98.0 F 69 20 118/56 L 96 07/30/18 07:36 97.5 F L 61 16 115/50 L 93 L Weight Weight 169 lb I&O: 07/29/18 07/30/18 07/31/18 06:59 06:59 06:59 Intake Total 1250 1040 Output Total 900 1600 Balance 350 -560 Result Diagrams: 07/29/18 04:30 07/29/18 04:30 Additional Labs: Microbiology 07/27/18 21:50 Urine voided Urine Culture - Preliminary Presumptive Escherichia coli Laboratory Tests 02/21/18 02/22/18 02/24/18 03:43 04:48 04:31 Hgb 9.5 L 9.1 L Creatinine 1.22 H Uric Acid Magnesium 02/25/18 02/26/18 02/26/18 04:53 04:45 04:45 Hgb 8.7 L Creatinine 1.36 H 1.28 H Uric Acid Magnesium 02/27/18 02/28/18 07/28/18 04:54 05:06 04:37 Hgb Creatinine 1.46 H 1.29 H 1.41 H Uric Acid Magnesium 2.5 07/28/18 07/29/18 04:37 04:30 Hgb 8.3 L Creatinine Uric Acid 8.8 H Magnesium Radiology Reviewed by me: Yes (Echo - EF 55-60%, severe TR) EKG Reviewed by me: Yes (Tele - Paced in 70's) Phys Exam - Physical Examination Constitutional: NAD HEENT: PERRLA, sclera anicteric, oral pharynx no lesions Neck: no nodes, no JVD, supple, full ROM Respiratory: no wheezing, no rales, no rhonchi, clear to auscultation bilateral S1, S2 Cardiovascular: no rub, gallop, irregular Gastrointestinal: soft, non-tender, no distention, positive bowel sounds Musculoskeletal: no edema, pulses present Neurological: normal sensation, moves all 4 limbs Psychiatric: A&O x 3 Skin: normal turgor, cap refill <2 seconds Dx/Plan (1) Acute on chronic diastolic ACC/AHA stage C congestive heart failure Code(s): I50.33 - ACUTE ON CHRONIC DIASTOLIC (CONGESTIVE) HEART FAILURE Status : Acute Comment: Suspected, EF 55-60%, Lasix 40mg daily, monitor daily weight and I/O's (2) Sick sinus syndrome Code(s): I49.5 - SICK SINUS SYNDROME Status: Chronic Comment: s/p MRI compatible pacemaker 03/02/18, continue tele monitoring, consult Cardiology for any further recommendations , malfunctioning pacer with discussions regarding next step, EF preserved on Echo (3) Hypothyroidism Code(s): E03.9 - HYPOTHYROIDISM, UNSPECIFIED Status: Chronic Qualifiers: Hypothyroidism type: unspecified Comment: Continue Levothyroxine 75mcg daily (4) Chronic respiratory failure with hypoxia Code(s): J96.11 - CHRONIC RESPIRATORY FAILURE WITH HYPOXIA Status: Chronic Comment: Continue O2 @ 2L/min NC, baseline home requirement (5) UTI (urinary tract infection) Status: Acute Comment: E. 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
[2018-07-30] MEDS: ALPRAZolam 0.5 MG TAB PO PRN (20:52)
[2018-07-30] MEDS: Polyethylene Glycol 3350 17 GM Packet PO SCH (20:52)
[2018-07-31] MEDS: Levothyroxine Sodium 75 MCG TAB PO SCH (05:50)
[2018-07-31 05:54] LABS: Anion Gap 16 mmol/L (10-20); BUN (Urea Nitrogen) 27 mg/dL (9.8-20.1); Calc. Creatinine Clearance 38 mL/min (70-130); Calcium 8.8 mg/dL (7.8-10.44); Carbon Dioxide 26 mmol/L (23-31); Chloride 98 mmol/L (98-107); Cholesterol 143 mg/dl (< 200 Desired); Estimated GFR-MDRD 37; Glucose 144 mg/dL (83-110); HDL Cholesterol 48 mg/dL (>60 Neg Risk); Iron 33 ug/dL (50-170); Iron Binding Capacity, Total 445 mcg/dL (265-497); LDL Cholesterol, Calculated 76 mg/dL; Sodium 136 mmol/L (136-145); Triglycerides 97 mg/dL (Less than 150)
[2018-07-31 05:57] LABS: #Eosinphils 0.9 thou/uL (0.0-0.7); #Monocytes 0.7 thou/uL (0.11-0.59); #Neutrophils 3.6 thou/uL (1.40-6.50); %Basophils 0.8 % (0.0-1.0); %Lymphocytes 15.3 % (21.0-51.0); %Monocytes 11.6 % (0.0-10.0); %Neutrophils 58.2 % (42.0-75.0); Hemoglobin 8.6 g/dL (12.0-16.0); Mean Corpuscular HGB CONC 31.6 g/dL (32.0-36.0); Mean Corpuscular Volume 79.1 fL (78.0-98.0); Mean Platelet Volume 9.8 fL (7.4-10.4); Platelet Count 116 thou/uL (130-400); RBC Distribution Width 16.2 % (11.5-14.5); Red Blood Cell (RBC) Count 3.42 mill/uL (4.20-5.40); White Blood Cell (WBC) Count 6.2 thou/uL (4.8-10.8)
[2018-07-31 05:58] LABS: Hypochromia SLIGHT = 6-15 cells (100X) (0-5/hpf); MDiff Complete? YES; Platelet Morphology Comment Appears Decreased
[2018-07-31] MEDS: Ferrous Sulfate 325 MG TAB PO SCH ×2 (09:26→17:05)
[2018-07-31] MEDS: Cefdinir 300 MG CAP PO SCH (09:26)
[2018-07-31] MEDS: Aspirin 325 MG TAB PO SCH (09:26)
[2018-07-31] MEDS: Ubidecarenone 50 MG CAP PO SCH (09:26)
[2018-07-31] MEDS: Furosemide 40 MG TAB PO SCH (09:27)
[2018-07-31] MEDS: Amiodarone 200 MG TAB PO SCH (09:27)
[2018-07-31] MEDS: Losartan 25 MG TAB PO SCH (09:27)
[2018-07-31] MEDS: Enoxaparin Sodium 30 MG/0.3 ML SYRINGE SC SCH (09:27)
[2018-07-31] MEDS: Fluticasone Propionate Nasal Spray 16 gm Bottle NASAL SCH (09:40)
--- NOTE | 2018-07-31 12:33 | PDOC.CTH ---
Cardiology Progress Note - Subjective EP PROGRES NOTE: 07/31/18 Seen as follow up for atrial arrhythmias and OAC management. Doing fair today. No new cardiac concerns or complaints - Objective Vital Signs Temp Pulse Pulse Pulse Resp BP BP 07/31/18 11:34 97.6 F 60 18 07/31/18 11:23 62 60 127/60 123/58 L 07/31/18 07:42 07/31/18 07:27 97.5 F L 07/31/18 04:00 60 18 07/31/18 03:08 97.5 F L 63 16 BP BP Pulse Ox 07/31/18 11:34 123/58 L 93 L 07/31/18 11:23 07/31/18 07:42 99 07/31/18 07:27 141/64 H 07/31/18 04:00 07/31/18 03:08 123/64 97 Weight 170 lb 1.6 oz 07/30/18 07/31/18 08/01/18 06:59 06:59 06:59 Intake Total 1040 910 Output Total 1600 960 Balance -560 -50 - Physical Examination General/Neuro: alert & oriented x3, NAD Neck: carotid US brisk, no JVD present Lungs: CTA, unlabored respirations Heart: PMI normal Abdomen: NT/ND, soft - Telemetry Telemetry Rhythm: A paced V sensed - Labs Result Diagrams: 07/31/18 05:10 07/31/18 05:10 Troponin/CKMB Troponin I 0.010 ng/mL (< 0.028) 07/28/18 07:42 - Assessment/Plan 1. Atrial arrhythmias - amiodarone 200mg PO daily for suppression. May no tolerated half-way therapy with lung disease. Changing to multaq today - not ablative candidate without being able to tolerate OAC -SR now. AP, VS 2. A/C diastolic HF - preserved EF 55-60% by echo 07/30/18. Severe TR. 3. Dual chamber PPM - placed for SSS 03/02/2018 - interrogation reveals: normal function, Atrial arrhythmia burden of 66% & episodes under 6 hrs in duration, SHOE RECONDITIONER 95% since atrial arrhythmias began a few weeks ago -ATP therapies programmed. Her flutter is highly responsive so far. 4. CHADS-VASC: 6 - hx GIB on Xarelto with Hgb drop on Eliquis. 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 - spoke with Dr Mccormick about staring Eliquis 2.5mg PO BID x 1 month then consider watchman as OP which requires OAC for at least 6 weeks post implant Ejection fraction remains preserved despite high grade RV pacing. No plan to upgrade to BiV PPM at this time. Change from amiodarone to multaq. consider low dose eliquis for possible WM as OP
--- NOTE | 2018-07-31 14:26 | PDOC.PN ---
- Subjective Encounter Start Date: 07/31/18 Encounter Start Time: 14:25 Subjective: f/u for diastolic CHF stabilizing on Lasix. Also with PM dysfunction now -: a-pacing appropriately and no plans for Bi-V upgrade. Overall feels ok -: with baseline SOB. - Objective Resuscitation Status - Order Detail: 07/28/18 02:55 Resuscitation Status Routine Resuscitation Status: FULL: Full Resuscitation MAR Reviewed: Yes Vital Signs & Weight: Vital Signs (12 hours) Temp Pulse Pulse Pulse Resp BP BP 07/31/18 11:34 97.6 F 60 18 07/31/18 11:23 62 60 127/60 123/58 L 07/31/18 07:42 07/31/18 07:27 97.5 F L 07/31/18 04:00 60 18 07/31/18 03:08 97.5 F L 63 16 BP BP Pulse Ox 07/31/18 11:34 123/58 L 93 L 07/31/18 11:23 07/31/18 07:42 99 07/31/18 07:27 141/64 H 07/31/18 04:00 07/31/18 03:08 123/64 97 Weight Weight 170 lb 1.6 oz I&O: 07/30/18 07/31/18 08/01/18 06:59 06:59 06:59 Intake Total 1040 910 Output Total 1600 960 Balance -560 -50 Result Diagrams: 07/31/18 05:10 07/31/18 05:10 Additional Labs: Microbiology 07/27/18 21:50 Urine voided Urine Culture - Preliminary Presumptive Escherichia coli Laboratory Tests 02/21/18 02/22/18 02/24/18 03:43 04:48 04:31 Hgb 9.5 L 9.1 L Creatinine 1.22 H Uric Acid Magnesium Iron TIBC 02/25/18 02/26/18 02/26/18 04:53 04:45 04:45 Hgb 8.7 L Creatinine 1.36 H 1.28 H Uric Acid Magnesium Iron TIBC 02/27/18 02/28/18 07/28/18 04:54 05:06 04:37 Hgb Creatinine 1.46 H 1.29 H 1.41 H Uric Acid Magnesium 2.5 Iron TIBC 07/28/18 07/29/18 07/31/18 04:37 04:30 05:10 Hgb 8.3 L Creatinine Uric Acid 8.8 H Magnesium Iron 33 L TIBC 445 Radiology Reviewed by me: Yes (Echo - EF 55-60%, severe TR) EKG Reviewed by me: Yes (Tele - A-pacing) Phys Exam - Physical Examination Constitutional: NAD HEENT: PERRLA, sclera anicteric, oral pharynx no lesions Neck: no nodes, no JVD, supple, full ROM Respiratory: no wheezing, no rales, no rhonchi S1, S2 Cardiovascular: RRR, no rub, gallop Gastrointestinal: soft, non-tender, no distention, positive bowel sounds Musculoskeletal: no edema, pulses present Neurological: normal sensation, moves all 4 limbs Psychiatric: A&O x 3 Skin: normal turgor, cap refill <2 seconds Dx/Plan (1) Acute on chronic diastolic ACC/AHA stage C congestive heart failure Code(s): I50.33 - ACUTE ON CHRONIC DIASTOLIC (CONGESTIVE) HEART FAILURE Status : Acute Comment: Suspected, EF 55-60%, Lasix 40mg daily, monitor daily weight and I/O's (2) Sick sinus syndrome Code(s): I49.5 - SICK SINUS SYNDROME Status: Chronic Comment: s/p MRI compatible pacemaker 03/02/18, continue tele monitoring, no plans for Bi-V upgrade, EF preserved on Echo (3) Hypothyroidism Code(s): E03.9 - HYPOTHYROIDISM, UNSPECIFIED Status: Chronic Qualifiers: Hypothyroidism type: unspecified Qualified Code(s): E03.9 - Hypothyroidism , unspecified Comment: Continue Levothyroxine 75mcg daily (4) Chronic respiratory failure with hypoxia Code(s): J96.11 - CHRONIC RESPIRATORY FAILURE WITH HYPOXIA Status: Chronic Comment: Continue O2 @ 2L/min NC, baseline home requirement (5) UTI (urinary tract infection) Status: Acute Comment: E. coli, convert to Omnicef due to Quinolone resistance - Plan continue antibiotics, PT/OT, group social worker, out of bed/ambulate Stable currently -: Amiodarone d/c and started on Multaq -: Iron supplementation -: OOB with PT -: Likely home in 24h * .
[2018-07-31] MEDS ORDERED: Dextrose 5% in Water 1,000 ML IV PRN ×2 (14:54→16:52)
[2018-07-31] MEDS ORDERED: Dextrose 50% Abboject 50 ML SYRINGE SLOW IVP PRN ×2 (14:54→16:52)
[2018-07-31] MEDS ORDERED: Iron Sucrose Complex 200 MG in Sodium Chloride 0.9% 250 ML 250 ML IVPB SCH (15:45)
[2018-07-31] MEDS ORDERED: Iron, Sodium Ferric Gluconate 250 MG in Sodium Chloride 0.9% 100 ML IVPB SCH (16:00)
[2018-07-31] MEDS: Dronedarone HCl 400 MG TAB PO SCH (16:43)
[2018-07-31] MEDS: Senokot S 8.6-50 MG TAB PO PRN (16:44)
[2018-07-31] MEDS: ALPRAZolam 0.5 MG TAB PO PRN (16:46)
[2018-07-31] MEDS ORDERED: HumaLOG 300 UNITS/3 ML VIAL SC PRN (16:52)
[2018-07-31 17:07] LABS: Folate (Folic Acid) 7.9 ng/mL (7.0-31.4)
[2018-07-31] MEDS: HumaLOG 300 UNITS/3 ML VIAL SC PRN (18:27)
[2018-07-31] MEDS: Polyethylene Glycol 3350 17 GM Packet PO SCH (21:16)
[2018-08-01] MEDS: Levothyroxine Sodium 75 MCG TAB PO SCH (05:56)
[2018-08-01] MEDS: Dronedarone HCl 400 MG TAB PO SCH ×2 (08:14→16:13)
[2018-08-01] MEDS: Losartan 25 MG TAB PO SCH (08:14)
[2018-08-01] MEDS: Enoxaparin Sodium 30 MG/0.3 ML SYRINGE SC SCH (08:14)
[2018-08-01] MEDS: Aspirin 325 MG TAB PO SCH (08:14)
[2018-08-01] MEDS: Cefdinir 300 MG CAP PO SCH (08:14)
[2018-08-01] MEDS: Furosemide 40 MG TAB PO SCH (08:14)
[2018-08-01] MEDS: Ubidecarenone 50 MG CAP PO SCH (08:14)
[2018-08-01] MEDS: Fluticasone Propionate Nasal Spray 16 gm Bottle NASAL SCH (08:15)
[2018-08-01] MEDS: Ferrous Sulfate 325 MG TAB PO SCH ×2 (08:18→16:13)
[2018-08-01] MEDS ORDERED: Iron Sucrose Complex 200 MG in Sodium Chloride 0.9% 250 ML 250 ML IVPB SCH (09:00)
--- NOTE | 2018-08-01 11:14 | PDOC.PN ---
- Subjective Encounter Start Date: 08/01/18 Encounter Start Time: 11:12 Patient seen and examined, states she's better than yesterday but not back to normal. No issues or complaints, no family at bedside, all questions answered. - Objective Resuscitation Status - Order Detail: 07/28/18 02:55 Resuscitation Status Routine Resuscitation Status: FULL: Full Resuscitation Vital Signs & Weight: Vital Signs (12 hours) Temp Pulse Resp BP BP Pulse Ox 08/01/18 07:17 98.1 F 63 16 150/61 H 94 L 08/01/18 05:41 98 08/01/18 04:00 97.4 F L 60 18 120/56 L 98 Weight Weight 171 lb 11.2 oz I&O: 07/31/18 08/01/18 08/02/18 06:59 06:59 06:59 Intake Total 910 1420 Output Total 960 600 Balance -50 820 Result Diagrams: 07/31/18 05:10 07/31/18 05:10 Additional Labs: Accuchecks 08/01/18 07/31/18 07/31/18 05:37 20:21 16:49 POC Glucose 122 H 252 H 162 H Phys Exam - Physical Examination Constitutional: NAD HEENT: PERRLA, moist MMs, sclera anicteric Neck: no nodes, no JVD, supple, full ROM Respiratory: no wheezing, no rales, no rhonchi Cardiovascular: RRR, no significant murmur, no rub Gastrointestinal: soft, non-tender, no distention, positive bowel sounds Musculoskeletal: pulses present, edema present Dx/Plan (1) Acute and chronic respiratory failure with hypoxia Code(s): J96.21 - ACUTE AND CHRONIC RESPIRATORY FAILURE WITH HYPOXIA Status: Acute Comment: Baseline O2 requirement currently (2) Acute on chronic diastolic ACC/AHA stage C congestive heart failure Code(s): I50.33 - ACUTE ON CHRONIC DIASTOLIC (CONGESTIVE) HEART FAILURE Status : Acute Comment: Suspected, EF 55-60%, Lasix 40mg daily, monitor daily weight and I/O's (3) CAD (coronary artery disease) Code(s): I25.10 - ATHSCL HEART DISEASE OF [place] CORONARY ARTERY W/O ANG PCTRS Status: Chronic Qualifiers: Coronary Disease-Associated Artery/Lesion type: bypass graft [place] vs. transplanted heart: [place] heart Associated angina: without angina Qualified Code(s): I25.810 - Atherosclerosis of coronary artery bypass graft(s) without angina pectoris (4) Diabetes type 2, controlled Code(s): E11.9 - TYPE 2 DIABETES MELLITUS WITHOUT COMPLICATIONS Status: Chronic Qualifiers: Diabetes mellitus detention insulin use: with termite treater helper use Diabetes mellitus complication status: without complication Qualified Code(s): E11.9 - Type 2 diabetes mellitus without complications; Z79.4 - USP (current) use of insulin Comment: Continue Metformin 500mg BID, ISS, ADA (5) HLD (hyperlipidemia) Code(s): E78.5 - HYPERLIPIDEMIA, UNSPECIFIED Status: Chronic Qualifiers: Hyperlipidemia type: pure hypercholesterolemia Qualified Code(s): E78.00 - Pure hypercholesterolemia, unspecified; E78.0 - Pure hypercholesterolemia (6) Hypothyroidism Code(s): E03.9 - HYPOTHYROIDISM, UNSPECIFIED Status: Chronic Qualifiers: Hypothyroidism type: unspecified Qualified Code(s): E03.9 - Hypothyroidism , unspecified Comment: Continue Levothyroxine 75mcg daily - Plan * cont diuretics * no plans for pacer upgrade for now, cardio following * PT eval done on , rec home with [facility], possible DC in AM * labs in AM * case and plan d/w patient at length, she understood and agreed with this plan.
--- NOTE | 2018-08-01 12:51 | PDOC.CTH ---
Cardiology Progress Note - Subjective No complaints today. Awaiting heme consult. - Objective Vital Signs Temp Pulse Resp BP BP Pulse Ox 08/01/18 12:00 60 17 138/57 L 96 08/01/18 07:17 98.1 F 63 16 150/61 H 94 L 08/01/18 05:41 98 08/01/18 04:00 97.4 F L 60 18 120/56 L 98 Weight 171 lb 11.2 oz 07/31/18 08/01/18 08/02/18 06:59 06:59 06:59 Intake Total 910 1420 Output Total 960 600 Balance -50 820 - Physical Examination General/Neuro: alert & oriented x3 Neck: no JVD present Lungs: other: (clear with decreased BS bilaterally) Heart: RRR Abdomen: NT/ND - Telemetry Telemetry Rhythm: AP-VS - Labs Result Diagrams: 07/31/18 05:10 07/31/18 05:10 Troponin/CKMB Troponin I 0.010 ng/mL (< 0.028) 07/28/18 07:42 - Assessment/Plan 1. Paroxysmal AF 2. Fe deficiency anemia 3. s/p CABG 4. s/p MVR twice 5. s/p dual-chamber pacer Awaiting heme consult. If allowable recommend Eliquis 2.5mg BID and f/u as outpatient for PVAI consideration. Pt was seen and examined. Agree with assessment above. No other changes. FU with cardiology as outpatient
[2018-08-01] MEDS: HumaLOG 300 UNITS/3 ML VIAL SC PRN (16:13)
[2018-08-01] MEDS: Senokot S 8.6-50 MG TAB PO PRN (16:13)
[2018-08-01] MEDS: Polyethylene Glycol 3350 17 GM Packet PO SCH (20:17)
[2018-08-01] MEDS: ALPRAZolam 0.5 MG TAB PO PRN (20:18)
[2018-08-02 04:39] LABS: #Eosinphils 0.9 thou/uL (0.0-0.7); #Lymphocytes 1.1 thou/uL (1.20-3.40); #Monocytes 0.6 thou/uL (0.11-0.59); #Neutrophils 3.8 thou/uL (1.40-6.50); %Basophils 0.5 % (0.0-1.0); %Eosinophils 14.3 % (0.0-10.0); %Lymphocytes 16.9 % (21.0-51.0); %Monocytes 9.1 % (0.0-10.0); %Neutrophils 59.3 % (42.0-75.0); Hemoglobin 8.2 g/dL (12.0-16.0); Mean Corpuscular Hemoglobin 24.2 pg (27.0-31.0); Mean Corpuscular Volume 80.7 fL (78.0-98.0); Mean Platelet Volume 9.6 fL (7.4-10.4); Platelet Count 154 thou/uL (130-400); RBC Distribution Width 16.3 % (11.5-14.5); Red Blood Cell (RBC) Count 3.38 mill/uL (4.20-5.40); White Blood Cell (WBC) Count 6.4 thou/uL (4.8-10.8)
[2018-08-02 05:00] LABS: Anion Gap 15 mmol/L (10-20); BUN (Urea Nitrogen) 24 mg/dL (9.8-20.1); Calc. Creatinine Clearance 39 mL/min (70-130); Calcium 9.2 mg/dL (7.8-10.44); Carbon Dioxide 28 mmol/L (23-31); Chloride 97 mmol/L (98-107); Estimated GFR-MDRD 37; Glucose 164 mg/dL (83-110); Potassium 4.4 mmol/L (3.5-5.1); Sodium 136 mmol/L (136-145)
[2018-08-02] MEDS: Levothyroxine Sodium 75 MCG TAB PO SCH (05:36)
[2018-08-02] MEDS: Dronedarone HCl 400 MG TAB PO SCH ×2 (08:23→17:04)
[2018-08-02] MEDS: Enoxaparin Sodium 30 MG/0.3 ML SYRINGE SC SCH (08:23)
[2018-08-02] MEDS: Losartan 25 MG TAB PO SCH (08:23)
[2018-08-02] MEDS: Aspirin 325 MG TAB PO SCH (08:23)
[2018-08-02] MEDS: Ubidecarenone 50 MG CAP PO SCH (08:24)
[2018-08-02] MEDS: Cefdinir 300 MG CAP PO SCH (08:24)
[2018-08-02] MEDS: Ferrous Sulfate 325 MG TAB PO SCH ×2 (08:24→17:04)
[2018-08-02] MEDS: Furosemide 40 MG TAB PO SCH (08:24)
[2018-08-02] MEDS: Fluticasone Propionate Nasal Spray 16 gm Bottle NASAL SCH (08:36)
[2018-08-02] MEDS: Senokot S 8.6-50 MG TAB PO PRN (08:36)
--- NOTE | 2018-08-02 10:55 | PDOC.PN ---
- Subjective Encounter Start Date: 08/02/18 Encounter Start Time: 10:54 Patient seen and examined, says she's a bit SOB but otherwise no new issues. - Objective Resuscitation Status - Order Detail: 07/28/18 02:55 Resuscitation Status Routine Resuscitation Status: FULL: Full Resuscitation Vital Signs & Weight: Vital Signs (12 hours) Temp Pulse Resp BP Pulse Ox 08/02/18 08:17 97.7 F 63 18 144/66 H 95 08/02/18 03:08 97.7 F 62 23 H 151/64 H 94 L 08/02/18 00:40 97.6 F 62 20 139/63 98 Weight Weight 172 lb 3.2 oz I&O: 08/01/18 08/02/18 08/03/18 06:59 06:59 06:59 Intake Total 1420 1320 Output Total 600 1700 Balance 820 -380 Result Diagrams: 08/02/18 04:13 08/02/18 04:13 Additional Labs: Accuchecks 08/02/18 08/02/18 08/01/18 05:23 03:15 20:35 POC Glucose 169 H 140 H 202 H 08/01/18 08/01/18 16:10 11:00 POC Glucose 199 H 193 H Phys Exam - Physical Examination Constitutional: NAD HEENT: PERRLA, moist MMs, sclera anicteric Neck: no nodes, no JVD, supple Respiratory: no rales, no rhonchi +crackles Cardiovascular: RRR, no significant murmur, no rub Gastrointestinal: soft, non-tender, no distention Musculoskeletal: pulses present, edema present (trace) Dx/Plan (1) Acute and chronic respiratory failure with hypoxia Code(s): J96.21 - ACUTE AND CHRONIC RESPIRATORY FAILURE WITH HYPOXIA Status: Acute Comment: Baseline O2 requirement currently (2) Acute on chronic diastolic ACC/AHA stage C congestive heart failure Code(s): I50.33 - ACUTE ON CHRONIC DIASTOLIC (CONGESTIVE) HEART FAILURE Status : Acute Comment: Suspected, EF 55-60%, Lasix 40mg daily, monitor daily weight and I/O's (3) CAD (coronary artery disease) Code(s): I25.10 - ATHSCL HEART DISEASE OF [place] CORONARY ARTERY W/O ANG PCTRS Status: Chronic Qualifiers: Coronary Disease-Associated Artery/Lesion type: bypass graft [place] vs. transplanted heart: [place] heart Associated angina: without angina Qualified Code(s): I25.810 - Atherosclerosis of coronary artery bypass graft(s) without angina pectoris (4) Diabetes type 2, controlled Code(s): E11.9 - TYPE 2 DIABETES MELLITUS WITHOUT COMPLICATIONS Status: Chronic Qualifiers: Diabetes mellitus penitentiary insulin use: with penitentiary use Diabetes mellitus complication status: without complication Qualified Code(s): E11.9 - Type 2 diabetes mellitus without complications; Z79.4 - [facility]CI (current) use of insulin Comment: Continue Metformin 500mg BID, ISS, ADA (5) HLD (hyperlipidemia) Code(s): E78.5 - HYPERLIPIDEMIA, UNSPECIFIED Status: Chronic Qualifiers: Hyperlipidemia type: pure hypercholesterolemia Qualified Code(s): E78.00 - Pure hypercholesterolemia, unspecified; E78.0 - Pure hypercholesterolemia (6) Hypothyroidism Code(s): E03.9 - HYPOTHYROIDISM, UNSPECIFIED Status: Chronic Qualifiers: Hypothyroidism type: unspecified Qualified Code(s): E03.9 - Hypothyroidism , unspecified Comment: Continue Levothyroxine 75mcg daily - Plan * increase diuretics, has worsening SOB * labs in AM * stable * DC plans once more stable and not SOB with crackles * case and plan d/w patient at length, she understood and agreed with this plan.
--- NOTE | 2018-08-02 11:26 | PDOC.CTH ---
Cardiology Progress Note - Subjective Patient with c/o weight gain and worsened SOB since yesterday. - Objective Vital Signs Temp Pulse Resp BP Pulse Ox 08/02/18 08:17 97.7 F 63 18 144/66 H 95 08/02/18 03:08 97.7 F 62 23 H 151/64 H 94 L 08/02/18 00:40 97.6 F 62 20 139/63 98 Weight 172 lb 3.2 oz 08/01/18 08/02/18 08/03/18 06:59 06:59 06:59 Intake Total 1420 1320 Output Total 600 1700 Balance 820 -380 - Physical Examination General/Neuro: alert & oriented x3 Neck: no JVD present Lungs: other: (decreased BS bilaterally. Few rales) Abdomen: NT/ND Extremities: other: (+2 RLE, NT.) - Telemetry Telemetry Rhythm: -DESIGN DIRECTOR - Labs Result Diagrams: 08/02/18 04:13 08/02/18 04:13 Troponin/CKMB Troponin I 0.010 ng/mL (< 0.028) 07/28/18 07:42 - Assessment/Plan 1. Paroxysmal AF 2. Fe deficiency anemia 3. s/p CABG 4. s/p MVR twice 5. s/p dual-chamber pacer 6. Acute on chronic diastolic CHF Lasix increased today. Will give low-dose zaroxolyn also. BMP in AM. Still awaiting heme consult. They have been called again per charge nurse.
[2018-08-02] MEDS ORDERED: Metolazone 2.5 MG TAB PO SCH (11:30)
[2018-08-02] MEDS: Iron, Sodium Ferric Gluconate 250 MG in Sodium Chloride 0.9% 250 ML 250 ML IVPB SCH (12:55)
[2018-08-02] MEDS: HumaLOG 300 UNITS/3 ML VIAL SC PRN (12:56)
--- NOTE | 2018-08-02 13:25 | CON ---
DATE OF CONSULTATION: HISTORY OF PRESENT ILLNESS: The patient is an 82-year-old female, who was evaluated by our nurse practitioner on Friday. The patient was given IV iron sucrose 200 mg yesterday. The patient has a history of chronic anemia, going back at least to 2013 when her hemoglobin was 9.9. The patient had a GI endoscopy per Dr. Dave 1-2 years ago and no cause was found. She denies of any bleeding from stool. Her ferritin is 19.26, serum iron 33, and TIBC 445. These are consistent with iron deficiency. The patient has tried to take iron by mouth, but it makes her constipated. She is likely to be started on Eliquis and is currently on aspirin. This can potentially aggravate her blood loss. So, I have ordered another 500 mg of iron intravenously today and I have asked the patient to take ferrous sulfate at least one tablet daily. She has appointment in our office in 6 weeks and will be followed on ongoing basis. Thanks very much for asking me to see this patient. Job ID: [id number]
[2018-08-02] MEDS ORDERED: Furosemide 40 MG TAB PO SCH (21:00)
[2018-08-02] MEDS: ALPRAZolam 0.5 MG TAB PO PRN (21:07)
[2018-08-02] MEDS: Polyethylene Glycol 3350 17 GM Packet PO SCH (21:07)
[2018-08-03] MEDS: Iron, Sodium Ferric Gluconate 250 MG in Sodium Chloride 0.9% 250 ML 250 ML IVPB SCH (01:32)
[2018-08-03] MEDS: Levothyroxine Sodium 75 MCG TAB PO SCH (06:21)
[2018-08-03] MEDS: Furosemide 40 MG TAB PO SCH ×2 (06:21→14:01)
--- NOTE | 2018-08-03 08:32 | CON ---
DATE OF CONSULTATION: REASON FOR CONSULT: Iron deficiency anemia. HISTORY OF PRESENT ILLNESS: Ms. Pearson is a pleasant 82-year-old female who was admitted for shortness of breath and congestive heart failure exacerbation. She has a history of atrial fibrillation and GI bleed on anticoagulation. In the past, she has received multiple units of blood and has been told she was iron deficient, she is intolerant to oral iron causing stomach pain and abdominal pain with constipation. On admission, her hemoglobin was 8.2. She had iron studies performed, which revealed a serum iron of 33 and a TIBC of 445. She does deny any GI bleeding. In the past, she has had endoscopy in 2017, which was unremarkable. She complains of shortness of breath, dyspnea on exertion and fatigue. PAST MEDICAL HISTORY: 1. Coronary artery disease. 2. Atrial flutter. 3. Diastolic heart failure. 4. Hypertension. 5. COPD. 6. Chronic anemia. 7. Gastroesophageal reflux. 8. Chronic kidney disease, stage 3. 9. Hyperlipidemia. 10. Hypothyroidism. 11. Pulmonary embolism. PAST SURGICAL HISTORY: 1. CABG, mitral valve replacement. 2. Colonoscopy. 3. GIA. 4. Cardiac stent placement. 5. Cataract surgery. 6. Hysterectomy. 7. Cholecystectomy. 8. Tonsillectomy. ALLERGIES: NITROFURANTOIN, PENICILLIN, MYCINS, TALWIN AND ZOCOR. HOME MEDICATIONS: 1. Xanax 0.5 mg daily. 2. Cordarone 200 mg daily. 3. Flonase daily. 4. Lasix 40 mg daily. 5. Prevacid b.i.d. 6. Synthroid 75 mcg daily. 7. Cozaar 50 mg daily. 8. CoQ10 daily. 9. Aspirin 325 daily. 10. MiraLAX p.r.n. FAMILY HISTORY: Noncontributory. SOCIAL HISTORY: Former smoker. Lives in [place]. No alcohol, tobacco or illicit drug use. REVIEW OF SYSTEMS: A 10-point review of systems is negative except for noted in HPI. PHYSICAL EXAMINATION: VITAL SIGNS: Temperature 97.6, pulse is 60, respiratory rate 18, BP is 123/58. She is 93% on 2 L. GENERAL: Well-developed, well-nourished female, in no acute distress. HEENT: Normocephalic, atraumatic. Pupils are equal and reactive to light. NECK: Supple. CV: Regular rate and rhythm. LUNGS: Clear anterior. ABDOMEN: Obese, nontender. Bowel sounds are positive. EXTREMITIES: No clubbing, cyanosis, or edema. SKIN: No rash. HEMATOLOGICAL: No petechiae or purpura. NEUROLOGIC: Nonfocal. PSYCHIATRIC: She is alert, oriented and appropriate. PERTINENT LABS AND X-RAYS: Current WBCs 6.2, hemoglobin 8.6, hematocrit 27.1, MCV 79.1. She has 58% neutrophils, 15% lymphocytes. Sodium is 136, potassium 4.0, chloride 98, CO2 is 26, BUN is 1.37, calcium is 8.8, bilirubin 0.5, AST is 21, ALT is 11, alkaline phosphatase is 100. Iron is 33, TIBC is 445. Troponin is negative. Serum total protein 6.9, albumin 4.1, globulin 2.8. ASSESSMENT: Multifactorial chronic anemia likely secondary to gastrointestinal blood loss on anticoagulation and chronic kidney disease. DISCUSSION: The patient is intolerant to oral iron. It causes her stomach pain and constipation. PLAN: IV iron infusion today and tomorrow. She will need repeat labs in about 6 weeks. She will follow up with Dr. Flores to recheck her iron studies and we will follow up in our clinic as needed. We will check a baseline ferritin, B12 and folic acid to be complete. Thank you for the consult. We will be happy to see this pleasant lady in the outpatient setting. Job ID: [id number]
[2018-08-03] MEDS: Dronedarone HCl 400 MG TAB PO SCH ×2 (08:57→18:15)
[2018-08-03] MEDS: Losartan 25 MG TAB PO SCH (08:57)
[2018-08-03] MEDS: Ferrous Sulfate 325 MG TAB PO SCH ×2 (08:57→18:15)
[2018-08-03] MEDS: Aspirin 325 MG TAB PO SCH (08:57)
[2018-08-03] MEDS: Cefdinir 300 MG CAP PO SCH (08:58)
[2018-08-03] MEDS: Ubidecarenone 50 MG CAP PO SCH (08:58)
[2018-08-03] MEDS: Cyanocobalamin (Vitamin B-12) 1,000 MCG TAB PO SCH (08:58)
[2018-08-03] MEDS: Enoxaparin Sodium 30 MG/0.3 ML SYRINGE SC SCH (08:58)
[2018-08-03] MEDS: Metolazone 2.5 MG TAB PO SCH (08:58)
[2018-08-03] MEDS: Fluticasone Propionate Nasal Spray 16 gm Bottle NASAL SCH (08:59)
[2018-08-03 10:48] LABS: Hemoglobin 7.9 g/dL (12.0-16.0)
--- NOTE | 2018-08-03 11:35 | PRG ---
DATE OF SERVICE: 08/03/2018 SUBJECTIVE: The patient reports overall she is breathing generally well. Her only concern is that she has swelling and redness in her right foot and ankle area. She reports that it was present when she was admitted and has not significantly changed. She thinks she may have had some gout in the right great toe area in the past, but has not generally been bothered with gout problems. OBJECTIVE: VITAL SIGNS: Temperature 97.6, pulse 60, respirations 18, O2 saturation 100% on 2 L nasal cannula, and blood pressure 120/66. GENERAL APPEARANCE: Age-appropriate female, in no distress. She is awake, alert, oriented, pleasant, and cooperative. HEART: Presently is regular without murmurs. LUNGS: Clear with no significant wheezes or rales. ABDOMEN: Soft, nontender, and nondistended. EXTREMITIES: The right foot and ankle are edematous with faint generalized erythema with pitting edema up to the midcalf at about 1+. She has trace on the left side in the pretibial area as well. LABORATORY DATA: Blood sugars 127 to 224. IMPRESSION AND PLAN: 1. Atrial fibrillation with rapid ventricular response, now with adequate rate control. Plan was for anticoagulation possibly long enough to bridge to a Watchman device at some point, so that she can avoid future anticoagulation complicated by the patient's anemia. She has been seen by Heme-Onc, and her anemia is being addressed. We will check her H and H again today, and depending on the results, we will be able to go ahead and start her on the low-dose Eliquis at 2.5 b.i.d. 2. Anemia. The patient has received IV iron per Heme-Onc. She also will be getting p.o. B12 as she is borderline low there as well. 3. Acute on chronic diastolic congestive heart failure, appears to be substantially improved. She denies any shortness of breath. She has no rales on her lung exam. 4. Status post coronary artery bypass graft. 5. Status post mitral valve replacement. 6. Status post dual-chamber pacemaker. 7. Right lower extremity edema with erythema. We will check a uric acid level and a Doppler. 8. Chronic kidney disease, stage 3B. Renal dosing, especially with the Eliquis. 9. Diabetes mellitus, adequately controlled. 10. Hypothyroidism, stable. Continue levothyroxine. 11. Hyperlipidemia. Continue home medications. 12. Disposition. If the hemoglobin is stable, can start the Eliquis. If the right lower extremity Doppler is negative and there is no evidence of deep venous thrombosis, she can still likely discharge later today with followup with her primary care provider, Cardiology, and Heme-Onc. Job ID: [id number]
--- NOTE | 2018-08-03 12:52 | ULT ---
RIGHT LOWER EXTREMITY VENOUS DUPLEX EXAM: 08/03/18 Veins of right lower extremity evaluated with color Doppler, spectral analysis and compression. INDICATION: Right lower extremity pain and edema. Deep veins of right lower extremity show normal blood flow and compression. No evidence of DVT. IMPRESSION: No evidence of right lower extremity DVT. POS: OFF
--- NOTE | 2018-08-03 16:18 | PDOC.CTH ---
Cardiology Progress Note - Subjective EP PROGRES NOTE: 08/03/18 Seen as follow up for atrial arrhythmias and OAC management. Developed fluid overload like symptoms over the weekend. Doing fair today. No new cardiac concerns or complaints - ROS shortness of breath - Objective Vital Signs Temp Pulse Pulse Pulse Resp BP BP 08/03/18 14:40 97.9 F 68 20 08/03/18 12:35 97.9 F 68 20 08/03/18 08:59 64 64 107/56 L 145/67 H 08/03/18 07:40 08/03/18 07:39 97.6 F 60 18 BP BP BP Pulse Ox 08/03/18 14:40 115/53 L 108/50 L 128/58 L 95 08/03/18 12:35 119/60 95 08/03/18 08:59 08/03/18 07:40 98 08/03/18 07:39 120/66 100 Weight 175 lb 6.4 oz 08/02/18 08/03/18 08/04/18 06:59 06:59 06:59 Intake Total 1320 1355 Output Total 1700 1200 Balance -380 155 - Physical Examination General/Neuro: alert & oriented x3, NAD Neck: no JVD present Lungs: CTA Heart: RRR Abdomen: no HSM, soft Extremities: + edema B (1-2+) - Telemetry Telemetry Rhythm: A paced rhtyhm - Labs Result Diagrams: 08/03/18 10:33 08/02/18 04:13 Troponin/CKMB Troponin I 0.010 ng/mL (< 0.028) 07/28/18 07:42 - Assessment/Plan 1. Atrial arrhythmias - Pre admit was on amiodarone 200mg PO daily for suppression. May not tolerate terminal gauger therapy with lung disease. Changed to multaq 07/31/18 - not ablative candidate without being able to tolerate OAC -SR now. AP, VS 2. A/C diastolic HF - preserved EF 55-60% by echo 07/30/18. Severe TR. - Monitor with diuresis if worsesn, may need to stop Multaq. 3. Dual chamber PPM - placed for SSS 03/02/2018 - interrogation reveals: normal function, Atrial arrhythmia burden of 66% & episodes under 6 hrs in duration, EDGER AUTOMATIC 95% since atrial arrhythmias began a few weeks ago -ATP therapies programmed. Her flutter is highly responsive so far. 4. CHADS-VASC: 6 - hx GIB on Xarelto with Hgb drop on Eliquis. Poor OAC candidate terminal gauger. - spoke with Dr Mccormick about staring Eliquis 2.5mg PO BID x 1 month then consider watchman as OP which requires OAC for at least 6 weeks post implant 5. Anemia, requiring Iron supplementation. H/O bleed in the past. Ejection fraction remains preserved despite high grade RV pacing. No plan to upgrade to BiV PPM at this time. Change from amiodarone to multaq. consider low dose eliquis for possible WM as OP
[2018-08-03] MEDS: HumaLOG 300 UNITS/3 ML VIAL SC PRN (18:41)
[2018-08-03] MEDS: ALPRAZolam 0.5 MG TAB PO PRN (20:10)
[2018-08-03] MEDS: Polyethylene Glycol 3350 17 GM Packet PO SCH (20:10)
[2018-08-04] MEDS: Levothyroxine Sodium 75 MCG TAB PO SCH (05:05)
[2018-08-04] MEDS: Furosemide 40 MG TAB PO SCH ×2 (05:05→16:48)
[2018-08-04 06:10] LABS: #Eosinphils 0.7 thou/uL (0.0-0.7); #Lymphocytes 1.1 thou/uL (1.20-3.40); #Monocytes 0.6 thou/uL (0.11-0.59); #Neutrophils 4.5 thou/uL (1.40-6.50); %Basophils 0.6 % (0.0-1.0); %Eosinophils 10.2 % (0.0-10.0); %Lymphocytes 15.6 % (21.0-51.0); %Monocytes 9.2 % (0.0-10.0); %Neutrophils 64.4 % (42.0-75.0); Hemoglobin 9.9 g/dL (12.0-16.0); Mean Corpuscular HGB CONC 30.4 g/dL (32.0-36.0); Mean Corpuscular Hemoglobin 24.8 pg (27.0-31.0); Mean Corpuscular Volume 81.9 fL (78.0-98.0); Mean Platelet Volume 9.1 fL (7.4-10.4); Platelet Count 178 thou/uL (130-400); Red Blood Cell (RBC) Count 3.99 mill/uL (4.20-5.40)
[2018-08-04 06:25] LABS: Anion Gap 13 mmol/L (10-20); BUN (Urea Nitrogen) 29 mg/dL (9.8-20.1); Calc. Creatinine Clearance 29 mL/min (70-130); Calcium 9.6 mg/dL (7.8-10.44); Carbon Dioxide 31 mmol/L (23-31); Chloride 95 mmol/L (98-107); Estimated GFR-MDRD 26; Glucose 129 mg/dL (83-110); Potassium 4.2 mmol/L (3.5-5.1); Sodium 135 mmol/L (136-145)
[2018-08-04] MEDS: Enoxaparin Sodium 30 MG/0.3 ML SYRINGE SC SCH (09:21)
[2018-08-04] MEDS: Fluticasone Propionate Nasal Spray 16 gm Bottle NASAL SCH (09:21)
[2018-08-04] MEDS: Ubidecarenone 50 MG CAP PO SCH (09:22)
[2018-08-04] MEDS: Cyanocobalamin (Vitamin B-12) 1,000 MCG TAB PO SCH (09:23)
[2018-08-04] MEDS: Aspirin 325 MG TAB PO SCH (09:23)
[2018-08-04] MEDS: Ferrous Sulfate 325 MG TAB PO SCH ×2 (09:23→16:48)
[2018-08-04] MEDS: Metolazone 2.5 MG TAB PO SCH (09:23)
[2018-08-04] MEDS: Cefdinir 300 MG CAP PO SCH (09:23)
[2018-08-04] MEDS: Dronedarone HCl 400 MG TAB PO SCH ×2 (09:23→16:48)
[2018-08-04] MEDS: Losartan 25 MG TAB PO SCH (09:33)
[2018-08-04] MEDS ORDERED: Allopurinol 100 MG TAB PO SCH ×2 (10:00→21:00)
[2018-08-04 15:09] VITALS: TEMP 97.9
[2018-08-04 16:49] VITALS: BP 123/54
--- NOTE | 2018-08-04 16:51 | PDOC.CTH ---
Cardiology Progress Note - Subjective EP PROGRES NOTE: 08/04/18 Seen as follow up for atrial arrhythmias and OAC management. Developed fluid overload like symptoms over the weekend but doing fair today. No new cardiac concerns or complaint. Eager to go home, possibly today or tomorrow - Objective Vital Signs Temp Pulse Pulse Resp BP BP Pulse Ox 08/04/18 16:49 60 123/54 L 08/04/18 13:14 65 135/58 L 08/04/18 13:05 97.9 F 65 18 135/58 L 98 08/04/18 07:59 99.7 F H 62 18 158/63 H 96 Weight 174 lb 3.2 oz 08/03/18 08/04/18 08/05/18 06:59 06:59 06:59 Intake Total 1355 1550 360 Output Total 1200 2280 Balance 155 -730 360 - Physical Examination General/Neuro: alert & oriented x3, NAD Neck: carotid US brisk, no JVD present Lungs: CTA, unlabored respirations Heart: PMI normal, RRR Abdomen: NT/ND, soft - Telemetry Telemetry Rhythm: SR - Labs Result Diagrams: 08/04/18 05:45 08/04/18 05:45 Troponin/CKMB Troponin I 0.010 ng/mL (< 0.028) 07/28/18 07:42 - Assessment/Plan 1. Atrial arrhythmias - Pre admit was on amiodarone 200mg PO daily for suppression. May not tolerate computer terminal operator therapy with lung disease. Changed to multaq 07/31/18 - not ablative candidate without being able to tolerate OAC -SR now. AP, VS 2. A/C diastolic HF - preserved EF 55-60% by echo 07/30/18. Severe TR. - Monitor with diuresis but if worsens, may need to stop Multaq. 3. Dual chamber PPM - placed for SSS 03/02/2018 - interrogation reveals: normal function, Atrial arrhythmia burden of 66% & episodes under 6 hrs in duration, GLASS PRESSER 95% since atrial arrhythmias began a few weeks ago -ATP therapies programmed. Her flutter is highly responsive so far. 4. CHADS-VASC: 6 - hx GIB on Xarelto with Hgb drop on Eliquis. Poor OAC candidate computer terminal operator. - spoke with Dr Mccormick about staring Eliquis 2.5mg PO BID x 1 month then consider watchman as OP which requires OAC for at least 6 weeks post implant 5. Anemia -requiring Iron supplementation. H/O GI bleed in the past on xarelto. slight Hgb drop with eliquis as well. Ejection fraction remains preserved despite high grade RV pacing. No plan to upgrade to BiV PPM at this time. Change from amiodarone to multaq. consider low dose eliquis for possible WM as OP. Likely DC later today or tomorrow. Had nose bleed this AM, likely related to O2 via NC dryness. Cardiology plans to trend H /H. If remains stable will start low dose Eliquis as OP. Will see back in clinic 6 weeks post DC.
== END 2018-08-04 19:44 | disposition home or self-care (01) | DRG 291 ==
LOC: INTOOBSV 00:59 → 2SW 00:59 → OBSVTOIN 00:59 → 2NO 07-30 20:42
PROVIDERS: ADMIT Hospitalist; ATTEND Hospitalist
DX: I13.0 Hypertensive heart and chronic kidney disease with heart failure and stage 1 through stage 4 chronic kidney disease, or unspecified chronic kidney disease (principal); I50.33 Acute on chronic diastolic (congestive) heart failure; J96.11 Chronic respiratory failure with hypoxia; N39.0 Urinary tract infection, site not specified; I25.10 Atherosclerotic heart disease of native coronary artery without angina pectoris; N18.3 Chronic kidney disease, stage 3 (moderate); D63.1 Anemia in chronic kidney disease; K21.9 Gastro-esophageal reflux disease without esophagitis; E03.9 Hypothyroidism, unspecified; F41.9 Anxiety disorder, unspecified; E66.9 Obesity, unspecified; I48.0 Paroxysmal atrial fibrillation; K59.00 Constipation, unspecified; E78.00 Pure hypercholesterolemia, unspecified; I49.5 Sick sinus syndrome; B96.20 Unspecified Escherichia coli [E. coli] as the cause of diseases classified elsewhere; D50.9 Iron deficiency anemia, unspecified; F32.9 Major depressive disorder, single episode, unspecified; Z90.710 Acquired absence of both cervix and uterus; Z90.49 Acquired absence of other specified parts of digestive tract; Z88.0 Allergy status to penicillin; Z88.1 Allergy status to other antibiotic agents; Z79.82 Long term (current) use of aspirin; Z99.81 Dependence on supplemental oxygen; Z79.899 Other long term (current) drug therapy; Z95.1 Presence of aortocoronary bypass graft; Z86.711 Personal history of pulmonary embolism; Z79.01 Long term (current) use of anticoagulants; Z95.0 Presence of cardiac pacemaker; Z87.891 Personal history of nicotine dependence; Z68.29 Body mass index [BMI] 29.0-29.9, adult
CPT/HCPCS: 36415; 36416; 36430; 80048; 80053; 80061; 82607; 82728; 82746; 83540; 83550; 83735; 84443; 84484; 84550; 85014; 85018; 85025; 86850; 86900; 86901; 93306; 93798; 94760; J1650; J1940; J2916; J3490; J7050; P9016

== ENCOUNTER 2019-04-16 18:16 | Inpatient (IN) | payer MEDICARE, OTHER ==
[2019-04-16 20:05] LABS: Bilirubin Negative (Negative); Blood, Urine Negative (Negative); Clarity Clear (Clear); Glucose, Urine (Dipstick) Normal (Negative); Leukocyte Negative Leu/uL (Negative); Nitrite Negative (Negative); Protein, Urine (Dipstick) Negative (Neg-Trace); Urobilinogen Normal mg/dL (Less than 2)
[2019-04-16] MEDS ORDERED: Azithromycin 500 MG VIAL ONE (20:05)
[2019-04-16 20:43] LABS: Troponin I 0.019 ng/mL (< 0.028)
[2019-04-16 22:45] LABS: Troponin I Less than 0.010 ng/mL (< 0.028)
[2019-04-16 23:09] VITALS: BMI 28.5
--- NOTE | 2019-04-16 23:21 | HP ---
CHIEF COMPLAINT: Shortness of breath. HISTORY OF PRESENT ILLNESS: Ms. Pearson is an 83-year-old female with past medical history of congestive heart failure, presented to the emergency room in [place] with a chief complaint of shortness of breath. The patient has a history of chronic respiratory failure, on home oxygen 2 L/minute. Workup in the emergency room, the patient was found to have elevated BNP and pulmonary vascular congestion. The patient was given one dose of IV Lasix. Also, the patient has been wheezing and was given DuoNebs. The patient denies any history of COPD. Denies fevers, chills, abdominal pain, fever, or chills. PAST MEDICAL HISTORY: 1. Congestive heart failure. 2. Anemia. 3. Diabetes mellitus, type 2. 4. Hypothyroidism. 5. Hypertension. 6. Myocardial infarction. 7. Cardiomyopathy. 8. Atrial fibrillation. 9. Cardiac pacemaker. PAST SURGICAL HISTORY: 1. Valve replacement. 2. Implants, both eyes. 3. Nasal septal repair. 4. Appendectomy. 5. Coronary artery bypass graft surgery. 6. Cholecystectomy. 7. Hysterectomy. 8. Bilateral oophorectomy. 9. Tonsillectomy. 10. Bladder suspension. 11. Mitral valve. 12. Cardiac pacemaker. SOCIAL HISTORY: Denies alcohol drinking. Former smoker. FAMILY HISTORY: Reviewed and noncontributory. HOME MEDICATIONS: Please see home medication reconciliation form for updated medications. ALLERGIES: 1. MYCINS. 2. NITROFURANTOIN. 3. PENICILLIN. 4. PENTAZOCINE. 5. PREDNISONE. 6. RIVAROXABAN. 7. ZOCOR. 8. TALWIN. REVIEW OF SYSTEMS: Review of 14 systems negative except what is mentioned in the history of present illness. PHYSICAL EXAMINATION: VITAL SIGNS: Blood pressure is 91/55, pulse is 75, respiratory rate is 24, temperature is 98.0. In moderate resp distress HEENT NC/AT HARSHA Neck Supple Chest few bibasialar crackles CVS Distant HS Abd soft NT CENTER CONSULTANT alert orient no faocal deficts Ext no clubbing or cyanosis IMAGING STUDIES: Chest x-ray shows pulmonary vascular congestion consistent with mild congestive heart failure. LABORATORY DATA: Elevated BNP 564. Chest x-ray as mentioned above. WBC 5.9, hemoglobin 11.5, platelets 110. Sodium 139, potassium 4.2, BUN is 51, creatinine 2.2 and BNP 563. ASSESSMENT: 1. Acute on chronic congestive heart failure. 2. Cardiomyopathy. 3. Acute on chronic renal failure. 4. Cardiac pacemaker. 5. Coronary artery disease. 6. History of atrial fibrillation. 7. Diabetes mellitus type 2. PLAN: 1. Admit to the hospital. 2. Oxygen to keep saturation more than 92%. 3. Tele monitor. 4. Cautious IV diuresis given the patient's low blood pressure. 5. Monitor kidney function and urine output. 6. Consider consulting patient's japanese tutor in a.m. for evaluation and further recommendations. 7. Reconcile home medications. 8. DVT prophylaxis as appropriate. 9. Expected length of stay, 2 midnights or more. Job ID: [id number] MTDD
[2019-04-17 05:51] LABS: Chloride 104 mmol/L (98-107); Potassium 4.3 mmol/L (3.5-5.1); Sodium 139 mmol/L (136-145)
[2019-04-17 05:52] LABS: Calcium 9.1 mg/dL (7.8-10.44); Glucose 281 mg/dL (83-110)
[2019-04-17 05:54] LABS: Anion Gap 16 mmol/L (10-20); Carbon Dioxide 23 mmol/L (23-31)
[2019-04-17 05:55] LABS: Calc. Creatinine Clearance 22 mL/min (70-130); Estimated GFR-MDRD 20
[2019-04-17 05:56] LABS: BUN (Urea Nitrogen) 57 mg/dL (9.8-20.1)
[2019-04-17 05:57] LABS: Magnesium 2.2 mg/dL (1.6-2.6)
[2019-04-17] MEDS ORDERED: Furosemide 40 MG/4 ML VIAL SLOW IVP SCH (06:00)
[2019-04-17 06:25] LABS: #Lymphocytes 0.2 thou/uL (1.20-3.40); #Monocytes 0.1 thou/uL (0.11-0.59); #Neutrophils 1.9 thou/uL (1.40-6.50); %Eosinophils 0.6 % (0.0-10.0); %Lymphocytes 8.2 % (21.0-51.0); %Monocytes 4.7 % (0.0-10.0); %Neutrophils 86.6 % (42.0-75.0); Hemoglobin 10.8 g/dL (12.0-16.0); Mean Corpuscular Hemoglobin 31.8 pg (27.0-31.0); Mean Corpuscular Volume 93.6 fL (78.0-98.0); Mean Platelet Volume 9.7 fL (7.4-10.4); Platelet Count 87 thou/uL (130-400); RBC Distribution Width 12.2 % (11.5-14.5); Red Blood Cell (RBC) Count 3.39 mill/uL (4.20-5.40); White Blood Cell (WBC) Count 2.2 thou/uL (4.8-10.8)
[2019-04-17 06:26] LABS: Elliptocytes SLIGHT = 2-5 cells (100X) (0-1/hpf); MDiff Complete? YES; Platelet Morphology Comment Appears Decreased
[2019-04-17] MEDS ORDERED: ALPRAZolam 0.5 MG TAB PO PRN (08:55)
[2019-04-17] MEDS ORDERED: Dronedarone HCl 400 MG TAB PO SCH (09:00)
[2019-04-17] MEDS ORDERED: LANSOPRAZOLE 15 MG PO SCH (09:00)
[2019-04-17] MEDS ORDERED: Losartan 25 MG TAB PO SCH (09:00)
[2019-04-17] MEDS ORDERED: Allopurinol 100 MG TAB PO SCH (09:00)
[2019-04-17] MEDS ORDERED: Aspirin Chewable 81 MG TAB PO SCH (09:00)
[2019-04-17] MEDS ORDERED: Non-Formulary Item 1 EACH (Ubidecarenone [Co Q-10] 200 MG) PO SCH (09:00)
[2019-04-17] MEDS ORDERED: Non-Formulary Item 1 EACH (Losartan Potassium [Cozaar] 50 MG) PO SCH (09:00)
[2019-04-17] MEDS: Aspirin 81 mg Enteric Coated Tablet PO SCH (09:40)
[2019-04-17] MEDS: Cyanocobalamin (Vitamin B-12) 1,000 MCG TAB PO SCH (09:41)
[2019-04-17] MEDS: Ubidecarenone 50 MG CAP PO SCH (09:41)
[2019-04-17] MEDS ORDERED: Furosemide 100 MG in Sodium Chloride 0.9% 100 ML IVPB SCH (10:00)
[2019-04-17] MEDS ORDERED: Dextrose 5% in Water 1,000 ML IV PRN (10:56)
[2019-04-17] MEDS ORDERED: Dextrose 50% Abboject 50 ML SYRINGE SLOW IVP PRN (10:56)
[2019-04-17] MEDS ORDERED: Insulin Regular 300 UNITS/3 ML VIAL SC PRN ×2 (10:56)
[2019-04-17] MEDS ORDERED: ALPRAZolam 0.25 MG TAB PO PRN (11:34)
[2019-04-17] MEDS ORDERED: Promethazine 25 MG TAB PO PRN (11:35)
--- NOTE | 2019-04-17 11:42 | PRG ---
DATE OF SERVICE: 04/17/2019 SUBJECTIVE: The patient is an 83-year-old female with extensive past medical history, presented to the emergency room yesterday with shortness of breath along with hypoxemia. Her O2 saturation in the emergency room was 84%. She received azithromycin, IV fluid along with nebulizer treatment in the emergency room. At this time, the patient continues to have significant shortness of breath along with lower extremity edema. She states that she has gained 17 pounds over the last 10 days. She also had some cough, which is essentially dry. No chest pain reported. REVIEW OF SYSTEMS: She has mild nausea after Multaq. She denies new focal deficit. All other review of systems reviewed and were found negative. CURRENT HOME MEDICATIONS: Reviewed. PHYSICAL EXAMINATION: VITAL SIGNS: Temperature 97.8 with pulse rate of 66, blood pressure 140/64, O2 saturation of 94% on 2 L nasal cannula. Intake of 200, output 500. GENERAL: An 83-year-old female, in mild respiratory distress, able to complete short phrases. HEENT: Head, atraumatic and normocephalic. Sclerae anicteric. Moist mucous membranes. No oral lesion. NECK: Supple. No JVD appreciated. LUNGS: Showed rales at bases with mild accessory muscle use. There is minimal wheezing as well. There were rhonchi bilaterally. HEART: S1, S2 present. Regular. Healed midline scar from previous CABG. ABDOMEN: Soft. Distended. Bowel sounds present. Questionable fluid thrill. EXTREMITIES: There is 2+ edema in right lower extremity. There is 1+ edema in left lower extremity. No calf tenderness. SKIN: Warm and dry. LYMPH NODE: No palpable lymph nodes in the neck. LABORATORY FINDINGS: Creatinine 2.31, baseline creatinine last month was 1.24, BUN 57, sodium of 139, potassium 4.3, chloride 104, bicarb 23. BNP was 1270. BNP yesterday was 563. Urinalysis was negative. CBC showed WBC 2.2 with hemoglobin 10.8, hematocrit 31.8, platelet of 87. Influenza screen was negative. Blood cultures negative. IMAGING STUDIES: Chest x-ray by my review showed cardiomegaly with pulmonary vascular congestion. Telemetry monitoring by my review showed paced rhythm. IMPRESSION: 1. Acute on chronic hypoxic respiratory failure. 2. Acute on chronic diastolic heart failure exacerbation. 3. Acute kidney injury on chronic kidney disease stage 3. 4. Coronary artery disease, status post coronary artery bypass grafting. 5. Chronic respiratory failure, on home oxygen. 6. Hypertension. 7. Diabetes mellitus, type 2, diet controlled. 8. Hypothyroidism. 9. History of bioprosthetic mitral valve. 10. Chronic anemia. 11. History of pulmonary embolism. 12. Right lower extremity swelling, rule out deep vein thrombosis. 13. Hyperlipidemia. 14. Gastroesophageal reflux disease. 15. History of coronary stents. 16. Anxiety. 17. Pancytopenia. 18. Gout. PLAN: We will continue telemetry monitoring. The patient will require 2 to 3 days for stabilization. We will change Lasix push to Lasix drip at a lower rate. We will recheck labs on the daily basis. We will reduce allopurinol dose due to acute kidney injury. We will hold losartan due to CHRISTIANO. We will get right lower extremity Doppler to rule out DVT. Cardiac Rehab consultation. Continue Multaq, levothyroxine, PPIs, Coenzyme Q10, and Xanax. Full code. DPOA - self/family Job ID: [id number] MTDD
[2019-04-17] MEDS: Furosemide 100 MG in Sodium Chloride 0.9% 90 ML IVPB SCH (13:05)
[2019-04-17] MEDS: Acetaminophen 325 MG TAB PO SCH ×2 (16:00→19:26)
[2019-04-17] MEDS: Dronedarone HCl 400 MG TAB PO SCH (16:00)
--- NOTE | 2019-04-17 16:51 | ULT ---
EXAM: Right lower extremity venous Doppler PROVIDED CLINICAL HISTORY: Right lower extremity edema FINDINGS: Grayscale and color Doppler sonography with spectral analysis was performed of the right common femor al, femoral, popliteal, posterior tibial, greater saphenous and profunda femoral veins. The evaluated venous structures demonstrate a normal sonographic appearance. IMPRESSION: No sonographic evidence for right lower extremity deep venous thrombosis.
[2019-04-17] MEDS: Polyethylene Glycol 3350 17 GM Packet PO SCH (19:26)
[2019-04-17] MEDS: guaiFENesin ER 600 MG TAB PO SCH (19:26)
[2019-04-17 21:40] LABS: Actual Bicarbonate (HCO3a) 22.1 mEq/L (22-28); Base Excess (BEa) -1.4 mEq/L (-2.0 to +3.0); CO2 Tension 32.7 mmHg (35.0-45.0); Calcium, Ionized 1.16 mmol/L (1.12-1.30); Carboxyhemoglobin (COHb) 0.4 gm% (0.0-3.0); Hemoglobin (Hb) 11.4 g/dL (12.0-16.0); O2 Tension (PaO2) 69.8 mmHg (> 60.0); Potassium - ABG Lab 4.52 mmol/L (3.70-5.30); pH, Arterial 7.45 (7.35-7.45)
[2019-04-17 21:42] LABS: ALV-art Gradient 88.965 (0-20); Puncture Site LRA
--- NOTE | 2019-04-18 01:34 | CON ---
DATE OF CONSULTATION: 04/17/2019 SERVICE: Pulmonary Medicine. REASON FOR CONSULTATION: Respiratory failure. HISTORY OF PRESENT ILLNESS: The patient is an 83-year-old white female with past medical history significant for restrictive lung disease. This is likely secondary to kyphoscoliosis. She had a CT of the chest roughly 6 months ago not showing very much in the way of interstitial changes. Each time she has a CT scan, she has varying degrees of volume overload, cardiomegaly, and bilateral pleural effusions. All of these are consistent with heart failure. Either way, she was in her usual state of health until about 1 week prior to presentation when she started noticing increasing abdominal girth, increasing dyspnea on exertion, orthopnea, paroxysmal nocturnal dyspnea. She presented to the emergency department, was discovered to be volume overloaded. She was put on a Lasix drip. Her breathing has improved a little bit. She has known sleep apnea, but abandoned therapy remotely. She is interested in getting back on therapy, if it means that it may help her breathe a little bit easier at night. She denies any current fevers or chills. She has been coughing and bringing up a little bit of white phlegm. That being said, there has been no sick contacts recently. Otherwise, she does not feel sick. Her appetite is off, but starting to bead picker a little bit. PAST MEDICAL HISTORY: 1. Chronic diastolic heart failure. 2. Type 2 diabetes mellitus. 3. Hypertension. 4. Dyslipidemia. 5. Hypothyroidism. 6. Anemia. 7. Chronic kidney disease, stage III. 8. Atrial fibrillation. PAST SURGICAL HISTORY: 1. Aortic valve replacement. 2. Implants of both eyes. 3. Repair of nasal septum. 4. Appendectomy. 5. Cholecystectomy. 6. Coronary artery bypass graft surgery. 7. Hysterectomy. 8. Bilateral oophorectomy. 9. Tonsillectomy. 10. Bladder suspension. 11. Mitral valve repair. 12. Pacemaker placement. SOCIAL HISTORY: Negative for alcohol, tobacco, or illicit drug use. FAMILY HISTORY: Noncontributory. ALLERGIES: 1. MYCINS. 2. NITROFURANTOIN. 3. PENICILLIN. 4. PENTAZOCINE. 5. PREDNISONE. 6. XARELTO. 7. ZOCOR. 8. TALWIN. MEDICATIONS: List of her inpatient medications was reviewed. No specific updates were made at this time. REVIEW OF SYSTEMS: General, head, ears, eyes, nose, throat, cardiovascular, respiratory, GI, , musculoskeletal, neurologic, and skin is negative except as mentioned in the HPI. PHYSICAL EXAMINATION: VITAL SIGNS: Afebrile, pulse 64, blood pressure 124/49, respirations 18, saturation 96% on 3 L nasal cannula. GENERAL: The patient is awake and alert, in no apparent distress. LUNGS: Absolutely wonderful air entry with no prolonged expiratory phase whatsoever. There is no wheezing. Crackles are present. No rhonchi appreciated. HEART: Normal rate, regular. ABDOMEN: Soft, nontender, nondistended. Bowel sounds are positive. MUSCULOSKELETAL: No cyanosis or clubbing. There is 1 to 2+ pitting throughout bilateral lower extremities. NEUROLOGIC: Grossly nonfocal. LABORATORY DATA: WBC 2.2, hemoglobin 10.8, platelets 87,000. Creatinine 2.31, which is above her baseline of 1.3. Basic metabolic profile is otherwise unremarkable. BNP is in historic high of 1270. Troponin is negative x1. Urinalysis is unremarkable. Gram-negative asya is growing in the urine. Blood cultures x2 and influenza is otherwise unremarkable. IMAGIN. Ultrasound of the bilateral lower extremities demonstrates no evidence of DVT. 2. Chest x-ray demonstrates findings consistent with volume overload including pulmonary vascular congestion, Lori B lines, fluid in the fissure, bilateral pleural effusions. I do not see any overt consolidating changes present. 3. Pulmonary function studies demonstrate a symmetrically reduced FEV1 and FVC, which is moderate in impairment. No evidence of obstructive airflow limitation is noted, though her expiratory time is at par. 4. Echocardiogram demonstrated recent normal ejection fraction while being paced. She has a large left atrium and valvular abnormalities on the right. Atrial fibrillation was underlying this. ASSESSMENT: 1. Xrcpg-[id number] hypoxic respiratory failure. 2. Nepjf-zg-[id number] diastolic heart failure. 3. Acute kidney injury on chronic kidney disease 4. 4. Restrictive lung disease, chronic. 5. History of obstructive sleep apnea. 6. Pancytopenia. DISCUSSION AND PLAN: I am going to rapidly deescalate her steroids as the patient really truthfully does not have COPD or asthma as an underlying diagnosis here. I will get an ABG looking for hypercapnic failure associated with her moderately severe restrictive lung disease, which is likely a function of kyphoscoliosis and weight. I do not see any intrinsic lung disease on a recent CT of the chest. I do think she would benefit from repeating a polysomnogram in the outpatient setting, if she does not have significant hypercapnic failure as noninvasive ventilation would be a very nice way of helping her sleep through the night. I agree that the patient is volume up. She has been initiated on a Lasix drip. Our goal will be to get a negative 1 to 2 liters on a daily basis over the next 48-72 hours. Pulmonary will continue to follow intermittently while the patient remains in-house, but Dr. Baca has an established relationship with this patient, and we will assume coverage on Friday. Job ID: [id number]
[2019-04-18 05:26] LABS: Anion Gap 13 mmol/L (10-20); BUN (Urea Nitrogen) 71 mg/dL (9.8-20.1); Calc. Creatinine Clearance 23 mL/min (70-130); Calcium 8.8 mg/dL (7.8-10.44); Carbon Dioxide 24 mmol/L (23-31); Chloride 103 mmol/L (98-107); Estimated GFR-MDRD 21; Glucose 138 mg/dL (83-110); Magnesium 2.2 mg/dL (1.6-2.6); Potassium 4.1 mmol/L (3.5-5.1); Sodium 136 mmol/L (136-145)
[2019-04-18] MEDS: Levothyroxine Sodium 75 MCG TAB PO SCH (05:41)
[2019-04-18 05:49] LABS: Elliptocytes SLIGHT = 2-5 cells (100X) (0-1/hpf); Eosinophils 3 % (0-10); Hemoglobin 10.6 g/dL (12.0-16.0); Lymphocytes 8 % (21-51); MDiff Complete? YES; Mean Corpuscular Hemoglobin 31.4 pg (27.0-31.0); Mean Platelet Volume 9.1 fL (7.4-10.4); Monocytes 5 % (0-10); Neutrophil 84 % (42-75); Platelet Count 109 thou/uL (130-400); Platelet Morphology Comment Appears Decreased; RBC Distribution Width 12.5 % (11.5-14.5); Red Blood Cell (RBC) Count 3.38 mill/uL (4.20-5.40); White Blood Cell (WBC) Count 6.7 thou/uL (4.8-10.8)
[2019-04-18] MEDS ORDERED: Allopurinol 100 MG TAB PO SCH (09:00)
[2019-04-18] MEDS: Acetaminophen 325 MG TAB PO SCH ×3 (09:09→19:47)
[2019-04-18] MEDS: Dronedarone HCl 400 MG TAB PO SCH ×2 (09:09→16:36)
[2019-04-18] MEDS: Multivit, Therapeutic 1 TAB PO SCH (09:10)
[2019-04-18] MEDS: Cyanocobalamin (Vitamin B-12) 1,000 MCG TAB PO SCH (09:10)
[2019-04-18] MEDS: Aspirin 81 mg Enteric Coated Tablet PO SCH (09:10)
[2019-04-18] MEDS: guaiFENesin ER 600 MG TAB PO SCH ×2 (09:10→19:47)
[2019-04-18] MEDS: Ubidecarenone 50 MG CAP PO SCH (09:11)
--- NOTE | 2019-04-18 13:14 | PDOC.HOSPP ---
- Subjective Encounter Date: 04/18/19 Encounter Time: 11:00 Subjective: Patient seen and examined for Resp failure. SOB improving. No CP/Palpitations. No new complaints. No overnight events - Objective Vital Signs & Weight: Vital Signs (12 hours) Temp Pulse Pulse Pulse Resp BP BP 04/18/19 11:19 97.9 F 61 16 04/18/19 09:17 64 62 141/52 H 118/53 L 04/18/19 07:51 97.6 F 71 20 04/18/19 04:00 97.5 F L 62 18 BP Pulse Ox Pulse Ox Pulse Ox 04/18/19 11:19 137/63 96 04/18/19 09:17 95 95 04/18/19 07:51 152/66 H 94 L 04/18/19 04:00 132/62 94 L Weight Weight 171 lb 1.6 oz I&O: 04/17/19 04/18/19 04/19/19 06:59 06:59 06:59 Intake Total 200 835 Output Total 500 1700 625 Balance -300 -865 -625 Result Diagrams: 04/18/19 04:29 04/18/19 04:29 Additional Labs: Accuchecks 04/18/19 04/17/19 04/17/19 10:23 21:05 16:06 POC Glucose 144 H 214 H 191 H Radiology Reviewed by me: Yes (CXR - no infiltrate) EKG Reviewed by me: Yes (Tele paced) Hospitalist ROS - Review of Systems Respiratory: reports: cough, dry, SOB with excertion. denies: shortness of breath, hemoptysis, pleuritic pain, sputum, wheezing, other Cardiovascular: denies: chest pain, palpitations, orthopnea, paroxysmal noc. dyspnea, edema, light headedness, other Gastrointestinal: denies: nausea, vomiting, abdominal pain, diarrhea, constipation, melena, hematochezia, other - Medication Medications: Active Medications Generic Name Dose Route Start Last Admin Trade Name Freq PRN Reason Stop Dose Admin Acetaminophen 650 mg 04/17/19 15:00 04/18/19 09:09 Tylenol PO 650 mg TID KELLY Administration Aspirin 81 mg 04/17/19 09:00 04/18/19 09:10 Ecotrin PO 81 mg DAILY KELLY Administration Coenzyme Q10 200 mg 04/17/19 09:00 04/18/19 09:11 Coenzyme Q10 PO 200 mg DAILY KELLY Administration Cyanocobalamin 1,000 mcg 04/17/19 09:00 04/18/19 09:10 Vitamin B-12 PO 1,000 mcg DAILY KELLY Administration Dronedarone 400 mg 04/17/19 17:00 04/18/19 09:09 Multaq PO 400 mg BID-WM KELLY Administration Guaifenesin 600 mg 04/17/19 21:00 04/18/19 09:10 Mucinex PO 600 mg Q12HR KELLY Administration Furosemide 100 mg/ Sodium 100 mls @ 3 mls/hr 04/17/19 11:01 04/17/19 13:05 Chloride IVPB 100 mls INF KELLY Administration 3 MG/HR Levothyroxine Sodium 75 mcg 04/18/19 06:00 04/18/19 05:41 Synthroid PO 75 mcg 0600 KELLY Administration Multivitamins 1 tab 04/18/19 09:00 04/18/19 09:10 Theragran PO 1 tab DAILY KELLY Administration Pantoprazole Sodium 40 mg 04/17/19 09:00 04/18/19 09:10 Protonix PO 40 mg DAILY KELLY Administration Polyethylene Glycol 17 gm 04/17/19 21:00 04/17/19 19:26 Miralax PO 17 gm HS KELLY Administration Promethazine HCl 25 mg 04/17/19 11:35 04/17/19 11:49 Phenergan PO 25 mg Q6H PRN Administration Nausea Sodium Chloride 10 ml 04/17/19 21:00 04/18/19 09:11 Flush - Normal Saline IVF Not Given Q12HR KELLY - Exam Heart: RRR, no gallops, no rubs, normal peripheral pulses Respiratory: no rales, no ronchi, normal chest expansion, rhonchi Respiratory - other findings: accessory muscle use Gastrointestinal: soft, non-tender, non-distended, normal bowel sounds Extremities: no cyanosis, no clubbing, 1+ LE edema (RLE) Neurological: no new deficit Psychiatric: normal affect, A&O x 3 Hosp A/P - Plan DVT proph w/SCDs IMPRESSION: 1. Acute on chronic hypoxic respiratory failure. 2. Acute on chronic diastolic heart failure exacerbation. 3. Acute kidney injury on chronic kidney disease stage 3. 4. Coronary artery disease, status post coronary artery bypass grafting. 5. Chronic respiratory failure, on home oxygen. 6. Hypertension. 7. Diabetes mellitus, type 2, diet controlled. 8. Hypothyroidism. 9. History of bioprosthetic mitral valve. 10. Chronic anemia. 11. History of pulmonary embolism. 12. Right lower extremity swelling, rule out deep vein thrombosis. 13. Hyperlipidemia. 14. Gastroesophageal reflux disease. 15. History of coronary stents. 16. Anxiety. 17. Pancytopenia. 18. Gout. PLAN: Cont Lasix drip with fluid restriction RLE doppler negative for DVT Losartan on hold due to CHRISTIANO Cont Nebs Cont Multaq and other meds as above AM labs
[2019-04-18] MEDS: Furosemide 100 MG in Sodium Chloride 0.9% 90 ML IVPB SCH (13:16)
[2019-04-18] MEDS: Polyethylene Glycol 3350 17 GM Packet PO SCH (19:47)
[2019-04-19 05:05] LABS: #Eosinphils 0.9 thou/uL (0.0-0.7); #Lymphocytes 1.2 thou/uL (1.20-3.40); #Monocytes 0.5 thou/uL (0.11-0.59); #Neutrophils 4.1 thou/uL (1.40-6.50); %Basophils 0.6 % (0.0-1.0); %Eosinophils 12.9 % (0.0-10.0); %Lymphocytes 18.3 % (21.0-51.0); %Monocytes 6.8 % (0.0-10.0); %Neutrophils 61.5 % (42.0-75.0); Hemoglobin 10.6 g/dL (12.0-16.0); Mean Corpuscular HGB CONC 33.6 g/dL (32.0-36.0); Mean Corpuscular Hemoglobin 31.9 pg (27.0-31.0); Mean Corpuscular Volume 94.8 fL (78.0-98.0); Mean Platelet Volume 9.6 fL (7.4-10.4); Platelet Count 117 thou/uL (130-400); RBC Distribution Width 12.5 % (11.5-14.5); Red Blood Cell (RBC) Count 3.34 mill/uL (4.20-5.40); White Blood Cell (WBC) Count 6.7 thou/uL (4.8-10.8)
[2019-04-19] MEDS: Levothyroxine Sodium 75 MCG TAB PO SCH (05:11)
[2019-04-19 05:23] LABS: Anion Gap 11 mmol/L (10-20); BUN (Urea Nitrogen) 72 mg/dL (9.8-20.1); Calc. Creatinine Clearance 25 mL/min (70-130); Calcium 8.7 mg/dL (7.8-10.44); Carbon Dioxide 29 mmol/L (23-31); Chloride 104 mmol/L (98-107); Estimated GFR-MDRD 23; Glucose 118 mg/dL (83-110); Potassium 3.8 mmol/L (3.5-5.1); Sodium 140 mmol/L (136-145)
[2019-04-19] MEDS: Dronedarone HCl 400 MG TAB PO SCH ×2 (09:40→17:43)
[2019-04-19] MEDS: Ubidecarenone 50 MG CAP PO SCH (09:40)
[2019-04-19] MEDS: Acetaminophen 325 MG TAB PO SCH ×3 (09:40→21:27)
[2019-04-19] MEDS: Multivit, Therapeutic 1 TAB PO SCH (09:41)
[2019-04-19] MEDS: guaiFENesin ER 600 MG TAB PO SCH ×2 (09:41→21:27)
[2019-04-19] MEDS: Cyanocobalamin (Vitamin B-12) 1,000 MCG TAB PO SCH (09:41)
[2019-04-19] MEDS: Aspirin 81 mg Enteric Coated Tablet PO SCH (09:41)
[2019-04-19] MEDS ORDERED: Loratadine 10 MG TAB PO PRN (13:25)
[2019-04-19] MEDS ORDERED: Cepastat Lozenges 1 LOZ PO PRN (13:25)
[2019-04-19] MEDS ORDERED: Diabetic Tussin 200 MG/10 ML UDCUP PO PRN (13:25)
--- NOTE | 2019-04-19 20:09 | CON ---
DATE OF CONSULTATION: HISTORY OF PRESENT ILLNESS: Valorie Pearson is an 83-year-old white female who I have been following for almost 20 years. She had CABG x3 in 2000 followed by pulmonary embolism in November 2000. She had stent placement in the right coronary artery and the circumflex after grafts closed in April 2001. She underwent redo CABG x1 to the right coronary artery (circumflex system too small to re-bypass) and placement of a bioprosthetic mitral valve. In June 2010, after many, many attempts to persuade her, she finally underwent redo mitral valve replacement for severe mitral bioprosthetic valve stenosis. She began to have problems with atrial arrhythmias in February 2018, underwent electrical cardioversion as well as loading with amiodarone. That was then followed by pacemaker placement. She was admitted again in July 2018 with progressive dyspnea and was found to be in paroxysmal atrial tachycardia. She was ventricularly pacing 100% of the time, but on echo, her ejection fraction continued to remain 55% to 60%. Atrial therapies were turned on on her pacemaker. Also with her chronic lung disease, it was felt by Electrophysiology that she should be switched to Multaq. She also has a history of iron-deficiency anemia and has received multiple iron transfusions and in the past. The decision has been made not to anticoagulate her. On followup of her pacemaker, she has had a low burden of atrial arrhythmias since she was placed on Multaq in July 2018. She was last seen in the office in January 28, 2019. She was still somewhat short of breath, but overall was doing well. She now presents complaining of increased shortness of breath. She had a lot of clear mucus drainage from her nose. She denies any fever or chills. She is on home oxygen at 2 L/minute. She was hypoxemic at [facility] and was transferred here for further evaluation. She has had some increasing leg edema. PAST MEDICAL HISTORY: Coronary artery disease, diastolic heart failure, hypertension, history of pulmonary embolism, history of COPD, chronic respiratory failure on home oxygen, history of GERD, iron-deficiency anemia, negative GI workups, chronic kidney disease, hypothyroidism, and anxiety. PAST SURGICAL HISTORY: Include pacemaker placement, bilateral cataract surgery, abdominal hysterectomy, cholecystectomy, tonsillectomy. She has had CABG x3 followed by redo CABG x1 with mitral valve replacement and then another surgery for redo mitral valve replacement, bladder suspension, nasal septal repair. MEDICATIONS: 1. Allopurinol 100 b.i.d. 2. Xanax 0.5 mg at bedtime p.r.n. 3. Aspirin 81 daily. 4. Multaq 400 mg b.i.d. 5. Furosemide 40 b.i.d. 6. Prevacid 15 mg b.i.d. 7. Levothyroxine 75 mcg daily. 8. Losartan 50 daily. 9. Zaroxolyn 2.5 p.r.n. 10. MiraLAX at bedtime. 11. CoQ10 at 200 mg daily. ALLERGIES: NITROFURANTOIN, PENICILLIN, PENTAZOCINE/TALWIN, PREDNISONE, AND XARELTO CAUSES GI BLEED. SOCIAL HISTORY: She does not smoke. FAMILY HISTORY: Unremarkable. REVIEW OF SYSTEMS: Unremarkable except as noted above. PHYSICAL EXAMINATION: VITAL SIGNS: 137/63, pulse 61. HEENT: PERRL. NECK: Supple. CHEST: Reveals clear but distant breath sounds. CARDIOVASCULAR: S1 and S2 normal without any S3 or S4. There is a 1/6 systolic murmur on the left sternal border. ABDOMEN: Obese. Normal bowel sounds. No tenderness. EXTREMITIES: Revealed 1+ pretibial edema. NEUROLOGIC: Grossly intact. SKIN: Warm and dry. LABORATORY DATA: EKG reveals atrial pacing with occasional ventricular pacing. Vascular ultrasound revealed no evidence of lower extremity deep venous thrombosis. Chest x-ray reveals cardiomegaly with mild vascular engorgement. Hemoglobin 10.6, hematocrit 31.7, white count 6700, platelets 117,000. pH 7.45, pCO2 of 32.7, pO2 of 69.8. Sodium 140, potassium 3.8, chloride 104, carbon dioxide 29, BUN 71, creatinine 2.04. BNP 1270.1. Cardiac enzymes are unremarkable. IMPRESSION: 1. Gykvg-zf-ijgtteq diastolic heart failure. 2. Chronic obstructive pulmonary disease exacerbation. 3. Chronic iron-deficiency anemia with multiple negative GI evaluations. She does not tolerate p.o. iron. Stevenson to not be a good anticoagulation candidate in the past. 4. History of paroxysmal atrial tachycardia and history of atrial fibrillation. 5. History of atrial flutter. 6. Status post coronary artery bypass graft x3 in 2000. 7. Pulmonary embolism in November 2000 after coronary artery bypass graft. 8. Stent placement in the circumflex and the right coronary artery after graft is closed in April 2001. 9. Redo coronary artery bypass graft x1 (right coronary artery) and bioprosthetic mitral valve replacement in June 2001. 10. Redo mitral valve replacement in June 2010 for severe bioprosthetic mitral stenosis. 11. Hypercholesterolemia. 12. Hypertension. 13. Diabetes. 14. Former smoker. 15. Hypothyroidism. 16. Obesity. PLAN: The patient currently is on Lasix drip and is starting to diurese somewhat. Certainly her shortness of breath is multifactorial. She has been placed on steroids. Her pacemaker will be interrogated to reassess the burden of her atrial arrhythmias. Job ID: [id number]
[2019-04-19] MEDS ORDERED: traMADol HCl 50 MG TAB PO PRN (21:10)
[2019-04-19] MEDS ORDERED: Sodium Chloride 0.65% Nasal 44 ML BOT EA NARE PRN (21:11)
[2019-04-19] MEDS: Polyethylene Glycol 3350 17 GM Packet PO SCH (21:27)
--- NOTE | 2019-04-19 21:29 | PRG ---
DATE OF SERVICE: 04/19/2019 SERVICE: Pulmonary Medicine. INTERVAL HISTORY: The patient is doing outstanding from respiratory standpoint. She is on a Lasix drip and putting out good output from that. Her lower extremity swelling and her abdominal girth are improved. Otherwise, she is really pleased with the progress she is making today. PHYSICAL EXAMINATION: VITAL SIGNS: Afebrile, pulse 62, blood pressure 127/73, respirations 20, and saturation 100% on 2 L nasal cannula. GENERAL: The patient is awake and alert, in no apparent distress. LUNGS: Great air entry. Dependent crackles are still present, though they are better. HEART: Normal rate and regular. ABDOMEN: Soft, nontender, and nondistended. Bowel sounds are positive. MUSCULOSKELETAL: No cyanosis or clubbing. There is 1+ pitting in bilateral lower extremities. NEUROLOGIC: Grossly nonfocal. LABORATORY DATA: WBC 6.7, hemoglobin 10.6, and platelets 117,000. Creatinine 2.04, which is beautifully downtrending. Basic metabolic profile is otherwise unremarkable. Sodium 140, which is gently up trending. E coli is growing in the urine, which is resistant to ampicillin, and the fluoroquinolones, but sensitive to cephalosporins. Blood cultures x2. An influenza A and B are unremarkable. ASSESSMENT: 1. Acute on chronic hypoxic respiratory failure. 2. Acute on chronic diastolic heart failure. 3. Acute kidney injury on chronic kidney disease 4, resolved to baseline. 4. Restrictive lung disease, chronic. 5. History of obstructive sleep apnea. 6. Pancytopenia, improving. DISCUSSION AND PLAN: We will continue diuresing the patient until she gets closer to euvolemia. I do think she would benefit from being in the hospital for a couple of days while this occurs. Critical Care will continue to follow along, intermittently while the patient remains inhouse. I would ask her to discuss looking into a repeat polysomnogram with Dr. Baca in the outpatient setting as she does not have significant hypercapnic failure that would allow us to initiate noninvasive ventilator in the outpatient setting without a polysomnogram. Job ID: [id number]
--- NOTE | 2019-04-19 22:28 | PDOC.HOSPP ---
- Subjective Encounter Date: 04/19/19 Encounter Time: 09:30 Subjective: Patient seen and examined for Resp failure. SOB improving. Dry cough. LE edema improving. No new complaints. No overnight events - Objective Vital Signs & Weight: Vital Signs (12 hours) Temp Pulse Resp BP Pulse Ox 04/19/19 15:31 98.4 F 62 20 127/73 100 04/19/19 11:52 97.4 F L 61 18 137/63 98 Weight Weight 167 lb I&O: 04/18/19 04/19/19 04/20/19 06:59 06:59 06:59 Intake Total 835 756 Output Total 1709 3987 600 Balance -865 -1519 -600 Result Diagrams: 04/19/19 04:30 04/19/19 04:30 Additional Labs: Accuchecks 04/19/19 04/19/19 04/19/19 21:30 17:47 11:57 POC Glucose 191 H 140 H 130 H EKG Reviewed by me: Yes (Tele paced) Hospitalist ROS - Review of Systems Respiratory: reports: SOB with excertion. denies: cough, dry, shortness of breath, hemoptysis, pleuritic pain, sputum, wheezing, other Cardiovascular: denies: chest pain, palpitations, orthopnea, paroxysmal noc. dyspnea, edema, light headedness, other Gastrointestinal: denies: nausea, vomiting, abdominal pain, diarrhea, constipation, melena, hematochezia, other - Medication Medications: Active Medications Generic Name Dose Route Start Last Admin Trade Name Freq PRN Reason Stop Dose Admin Acetaminophen 650 mg 04/17/19 15:00 04/19/19 21:27 Tylenol PO 650 mg TID KELLY Administration Alprazolam 0.5 mg 04/17/19 08:55 04/19/19 21:27 Xanax PO 0.5 mg HS PRN Administration Anxiety/Sleep/Spasm Aspirin 81 mg 04/17/19 09:00 04/19/19 09:41 Ecotrin PO 81 mg DAILY KELLY Administration Coenzyme Q10 200 mg 04/17/19 09:00 04/19/19 09:40 Coenzyme Q10 PO 200 mg DAILY KELLY Administration Cyanocobalamin 1,000 mcg 04/17/19 09:00 04/19/19 09:41 Vitamin B-12 PO 1,000 mcg DAILY KELLY Administration Dronedarone 400 mg 04/17/19 17:00 04/19/19 17:43 Multaq PO 400 mg BID-WM KELLY Administration Guaifenesin 600 mg 04/17/19 21:00 04/19/19 21:27 Mucinex PO 600 mg Q12HR KELLY Administration Furosemide 100 mg/ Sodium 100 mls @ 3 mls/hr 04/17/19 11:01 04/18/19 13:16 Chloride IVPB 100 mls INF KELLY Administration 3 MG/HR Levothyroxine Sodium 75 mcg 04/18/19 06:00 04/19/19 05:11 Synthroid PO 75 mcg 0600 KELLY Administration Loratadine 10 mg 04/19/19 13:25 04/19/19 21:27 Claritin PO 10 mg DAILYPRN PRN Administration Sinus Symptoms Multivitamins 1 tab 04/18/19 09:00 04/19/19 09:41 Theragran PO 1 tab DAILY KELLY Administration Pantoprazole Sodium 40 mg 04/17/19 09:00 04/19/19 09:41 Protonix PO 40 mg DAILY KELLY Administration Polyethylene Glycol 17 gm 04/17/19 21:00 04/19/19 21:27 Miralax PO 17 gm HS KELLY Administration Promethazine HCl 25 mg 04/17/19 11:35 04/17/19 11:49 Phenergan PO 25 mg Q6H PRN Administration Nausea Sodium Chloride 10 ml 04/17/19 21:00 04/19/19 22:21 Flush - Normal Saline IVF Not Given Q12HR KELLY - Exam General Appearance: NAD Neck: supple, no JVD Heart: RRR, no gallops, no rubs Respiratory: no wheezes, rales, rhonchi Gastrointestinal: soft, non-tender, non-distended Extremities: no cyanosis Neurological: no new deficit Psychiatric: normal affect, A&O x 3 Hosp A/P - Plan IMPRESSION: 1. Acute on chronic hypoxic respiratory failure. 2. Acute on chronic diastolic heart failure exacerbation. 3. Acute kidney injury on chronic kidney disease stage 3. 4. Coronary artery disease, status post coronary artery bypass grafting. 5. Chronic respiratory failure, on home oxygen. 6. Hypertension. 7. Diabetes mellitus, type 2, diet controlled. 8. Hypothyroidism. 9. History of bioprosthetic mitral valve. 10. Chronic anemia. 11. History of pulmonary embolism. 12. Par Afib - not tolerating anticoag 13. Hyperlipidemia. 14. Gastroesophageal reflux disease. 15. History of coronary stents. 16. Anxiety. 17. Pancytopenia. 18. Gout. PLAN: Cont Lasix drip Cont fluid restriction Losartan on hold due to CHRISTIANO Cont Multaq Cont other meds as above BMP in AM
[2019-04-20] MEDS: Furosemide 100 MG in Sodium Chloride 0.9% 90 ML IVPB SCH (01:59)
[2019-04-20] MEDS: Levothyroxine Sodium 75 MCG TAB PO SCH (03:01)
[2019-04-20 05:54] LABS: Anion Gap 11 mmol/L (10-20); BUN (Urea Nitrogen) 56 mg/dL (9.8-20.1); Calc. Creatinine Clearance 30 mL/min (70-130); Calcium 8.9 mg/dL (7.8-10.44); Carbon Dioxide 32 mmol/L (23-31); Chloride 102 mmol/L (98-107); Estimated GFR-MDRD 29; Glucose 116 mg/dL (83-110); Potassium 3.7 mmol/L (3.5-5.1); Sodium 141 mmol/L (136-145)
[2019-04-20] MEDS: Cyanocobalamin (Vitamin B-12) 1,000 MCG TAB PO SCH (09:22)
[2019-04-20] MEDS: Aspirin 81 mg Enteric Coated Tablet PO SCH (09:22)
[2019-04-20] MEDS: Acetaminophen 325 MG TAB PO SCH ×3 (09:22→20:28)
[2019-04-20] MEDS: Dronedarone HCl 400 MG TAB PO SCH ×2 (09:22→16:19)
[2019-04-20] MEDS: Multivit, Therapeutic 1 TAB PO SCH (09:23)
[2019-04-20] MEDS: Ubidecarenone 50 MG CAP PO SCH (09:23)
[2019-04-20] MEDS: guaiFENesin ER 600 MG TAB PO SCH ×2 (09:23→20:28)
[2019-04-20] MEDS ORDERED: Losartan 25 MG TAB PO SCH (10:00)
--- NOTE | 2019-04-20 10:29 | PDOC.HOSPP ---
- Subjective Encounter Date: 04/20/19 Encounter Time: 10:26 Subjective: Patient seen and examined for CHF. No new CP/SOB. No new complaints. No overnight events - Objective Vital Signs & Weight: Vital Signs (12 hours) Temp Pulse Resp BP BP Pulse Ox 04/20/19 07:17 97.5 F L 60 16 141/63 H 99 04/20/19 02:56 97.5 F L 63 15 145/65 H 89 L Weight Weight 166 lb 3.2 oz I&O: 04/19/19 04/20/19 04/21/19 06:59 06:59 06:59 Intake Total 756 271.9 Output Total 2275 1400 500 Balance -1519 -1128.1 -500 Result Diagrams: 04/19/19 04:30 04/20/19 04:35 Additional Labs: Accuchecks 04/19/19 04/19/19 04/19/19 21:30 17:47 11:57 POC Glucose 191 H 140 H 130 H EKG Reviewed by me: Yes (Tele Paced) Hospitalist ROS - Review of Systems Respiratory: denies: cough, dry, shortness of breath, hemoptysis, SOB with excertion, pleuritic pain, sputum, wheezing, other Cardiovascular: denies: chest pain, palpitations, orthopnea, paroxysmal noc. dyspnea, edema, light headedness, other - Medication Medications: Active Medications Generic Name Dose Route Start Last Admin Trade Name Freq PRN Reason Stop Dose Admin Acetaminophen 650 mg 04/17/19 15:00 04/20/19 09:22 Tylenol PO 650 mg TID KELLY Administration Alprazolam 0.5 mg 04/17/19 08:55 04/19/19 21:27 Xanax PO 0.5 mg HS PRN Administration Anxiety/Sleep/Spasm Aspirin 81 mg 04/17/19 09:00 04/20/19 09:22 Ecotrin PO 81 mg DAILY KELLY Administration Coenzyme Q10 200 mg 04/17/19 09:00 04/20/19 09:23 Coenzyme Q10 PO 200 mg DAILY KELLY Administration Cyanocobalamin 1,000 mcg 04/17/19 09:00 04/20/19 09:22 Vitamin B-12 PO 1,000 mcg DAILY KELLY Administration Dronedarone 400 mg 04/17/19 17:00 04/20/19 09:22 Multaq PO 400 mg BID-WM KELLY Administration Guaifenesin 600 mg 04/17/19 21:00 04/20/19 09:23 Mucinex PO 600 mg Q12HR KELLY Administration Furosemide 100 mg/ Sodium 100 mls @ 3 mls/hr 04/17/19 11:01 04/20/19 01:59 Chloride IVPB 100 mls INF KELLY Administration 3 MG/HR Levothyroxine Sodium 75 mcg 04/18/19 06:00 04/20/19 03:01 Synthroid PO 75 mcg 0600 KELLY Administration Loratadine 10 mg 04/19/19 13:25 04/19/19 21:27 Claritin PO 10 mg DAILYPRN PRN Administration Sinus Symptoms Multivitamins 1 tab 04/18/19 09:00 04/20/19 09:23 Theragran PO 1 tab DAILY KELLY Administration Pantoprazole Sodium 40 mg 04/17/19 09:00 04/20/19 09:23 Protonix PO 40 mg DAILY KELLY Administration Polyethylene Glycol 17 gm 04/17/19 21:00 04/19/19 21:27 Miralax PO 17 gm HS KELLY Administration Promethazine HCl 25 mg 04/17/19 11:35 04/17/19 11:49 Phenergan PO 25 mg Q6H PRN Administration Nausea Sodium Chloride 10 ml 04/17/19 21:00 04/20/19 09:23 Flush - Normal Saline IVF Not Given Q12HR KELLY Sodium Chloride 0 ml 04/19/19 21:11 04/20/19 03:00 [place] Nasal [place] 0.65% EA NARE 1 spr TID PRN Administration Nasal Congestion - Exam General Appearance: NAD Neck: supple, no JVD Heart: no gallops, no rubs Respiratory: no wheezes, no rales, rhonchi Gastrointestinal: non-tender, non-distended, normal bowel sounds Extremities: no clubbing Hosp A/P - Plan DVT proph w/SCDs IMPRESSION: 1. Acute on chronic hypoxic respiratory failure. 2. Acute on chronic diastolic heart failure exacerbation. 3. Acute kidney injury on chronic kidney disease stage 3. 4. Coronary artery disease, status post coronary artery bypass grafting. 5. Chronic respiratory failure, on home oxygen. 6. Hypertension. 7. Diabetes mellitus, type 2, diet controlled. 8. Hypothyroidism. 9. History of bioprosthetic mitral valve. 10. Chronic anemia. 11. History of pulmonary embolism. 12. Par Afib - not tolerating anticoag 13. Hyperlipidemia. 14. Gastroesophageal reflux disease. 15. History of coronary stents. 16. Anxiety. 17. Pancytopenia. 18. Gout. PLAN: Cont Lasix drip @3mg/hr Resume Losartan in AM Cont fluid restriction Cont Multaq Cont other meds as above Not on Heparin due to Anemia AM labs
[2019-04-20] MEDS ORDERED: Metoprolol Tartrate 25 MG TAB PO SCH (11:00)
[2019-04-20] MEDS: Metoprolol Tartrate 25 MG TAB PO SCH (20:28)
[2019-04-20] MEDS: traMADol HCl 50 MG TAB PO PRN (20:28)
[2019-04-20] MEDS: Polyethylene Glycol 3350 17 GM Packet PO SCH (20:29)
[2019-04-21] MEDS: Levothyroxine Sodium 75 MCG TAB PO SCH (03:56)
[2019-04-21 05:34] LABS: Anion Gap 11 mmol/L (10-20); BUN (Urea Nitrogen) 50 mg/dL (9.8-20.1); Calc. Creatinine Clearance 32 mL/min (70-130); Carbon Dioxide 32 mmol/L (23-31); Chloride 102 mmol/L (98-107); Estimated GFR-MDRD 32; Glucose 135 mg/dL (83-110); Potassium 3.7 mmol/L (3.5-5.1); Sodium 141 mmol/L (136-145)
[2019-04-21] MEDS ORDERED: Losartan 25 MG TAB PO SCH (09:00)
[2019-04-21] MEDS: Furosemide 40 MG TAB PO SCH ×2 (09:10→15:20)
[2019-04-21] MEDS: Aspirin 81 mg Enteric Coated Tablet PO SCH (09:10)
[2019-04-21] MEDS: Acetaminophen 325 MG TAB PO SCH ×3 (09:10→21:11)
[2019-04-21] MEDS: Dronedarone HCl 400 MG TAB PO SCH ×3 (09:10→17:48)
[2019-04-21] MEDS: Cyanocobalamin (Vitamin B-12) 1,000 MCG TAB PO SCH (09:10)
[2019-04-21] MEDS: Ubidecarenone 50 MG CAP PO SCH (09:11)
[2019-04-21] MEDS: Multivit, Therapeutic 1 TAB PO SCH (09:11)
[2019-04-21] MEDS: Metoprolol Tartrate 25 MG TAB PO SCH ×2 (09:11→21:12)
[2019-04-21] MEDS: guaiFENesin ER 600 MG TAB PO SCH ×2 (09:11→21:12)
[2019-04-21] MEDS: Furosemide 100 MG in Sodium Chloride 0.9% 90 ML IVPB SCH (12:37)
--- NOTE | 2019-04-21 12:40 | PDOC.HOSPP ---
- Subjective Encounter Date: 04/21/19 Encounter Time: 10:30 Subjective: Patient seen and examined for CHF. SOB improving. No CP/palpitations or syncope. No new complaints. No overnight events - Objective Vital Signs & Weight: Vital Signs (12 hours) Temp Pulse Resp BP Pulse Ox 04/21/19 07:40 97.7 F 73 20 121/53 L 95 04/21/19 03:55 98.3 F 60 16 121/51 L 97 Weight Weight 164 lb 14.4 oz I&O: 04/20/19 04/21/19 04/22/19 06:59 06:59 06:59 Intake Total 271.9 1454.7 Output Total 1400 1500 600 Balance -1128.1 -45.3 -600 Result Diagrams: 04/19/19 04:30 04/21/19 04:55 Additional Labs: Accuchecks 04/21/19 04/20/19 04/20/19 10:38 19:45 16:41 POC Glucose 150 H 201 H 160 H EKG Reviewed by me: Yes (Tele Paced) Hospitalist ROS - Review of Systems Respiratory: denies: cough, dry, shortness of breath, hemoptysis, SOB with excertion, pleuritic pain, sputum, wheezing, other Cardiovascular: denies: chest pain, palpitations, orthopnea, paroxysmal noc. dyspnea, edema, light headedness, other Gastrointestinal: denies: nausea, vomiting, abdominal pain, diarrhea, constipation, melena, hematochezia, other - Medication Medications: Active Medications Generic Name Dose Route Start Last Admin Trade Name Freq PRN Reason Stop Dose Admin Acetaminophen 650 mg 04/17/19 15:00 04/21/19 09:10 Tylenol PO 650 mg TID KELLY Administration Alprazolam 0.5 mg 04/17/19 08:55 04/19/19 21:27 Xanax PO 0.5 mg HS PRN Administration Anxiety/Sleep/Spasm Aspirin 81 mg 04/17/19 09:00 04/21/19 09:10 Ecotrin PO 81 mg DAILY KELLY Administration Coenzyme Q10 200 mg 04/17/19 09:00 04/21/19 09:11 Coenzyme Q10 PO 200 mg DAILY KELLY Administration Cyanocobalamin 1,000 mcg 04/17/19 09:00 04/21/19 09:10 Vitamin B-12 PO 1,000 mcg DAILY KELLY Administration Dronedarone 200 mg 04/20/19 17:00 04/21/19 12:36 Multaq PO 200 mg TID-WM KELLY Administration Furosemide 40 mg 04/21/19 09:00 04/21/19 09:10 Lasix PO 40 mg 0900,1400 KELLY Administration Guaifenesin 600 mg 04/17/19 21:00 04/21/19 09:11 Mucinex PO 600 mg Q12HR KELLY Administration Furosemide 100 mg/ Sodium 100 mls @ 3 mls/hr 04/17/19 11:01 04/21/19 12:37 Chloride IVPB 04/21/19 23:59 100 mls INF KELLY Administration 3 MG/HR Levothyroxine Sodium 75 mcg 04/18/19 06:00 04/21/19 03:56 Synthroid PO 75 mcg 0600 KELLY Administration Loratadine 10 mg 04/19/19 13:25 04/19/19 21:27 Claritin PO 10 mg DAILYPRN PRN Administration Sinus Symptoms Metoprolol Tartrate 25 mg 04/20/19 21:00 04/21/19 09:11 Lopressor PO 25 mg BID KELLY Administration Multivitamins 1 tab 04/18/19 09:00 04/21/19 09:11 Theragran PO 1 tab DAILY KELLY Administration Pantoprazole Sodium 40 mg 04/17/19 09:00 04/21/19 09:11 Protonix PO 40 mg DAILY KELLY Administration Polyethylene Glycol 17 gm 04/17/19 21:00 04/20/19 20:29 Miralax PO 17 gm HS KELLY Administration Promethazine HCl 25 mg 04/17/19 11:35 04/17/19 11:49 Phenergan PO 25 mg Q6H PRN Administration Nausea Sodium Chloride 10 ml 04/17/19 21:00 04/21/19 09:11 Flush - Normal Saline IVF Not Given Q12HR KELLY Sodium Chloride 0 ml 04/19/19 21:11 04/20/19 03:00 [place] Nasal [place] 0.65% EA NARE 1 spr TID PRN Administration Nasal Congestion Tramadol HCl 50 mg 04/20/19 20:18 04/20/19 20:28 Ultram PO 50 mg Q6H PRN Administration Severe Pain (7-10) - Exam General Appearance: NAD Heart: RRR, no gallops Respiratory: no wheezes, no ronchi, rales (at bases) Gastrointestinal: soft, non-tender, normal bowel sounds Extremities: no cyanosis Neurological: no new deficit Hosp A/P - Plan DVT proph w/SCDs 1. Acute on chronic hypoxic respiratory failure. 2. Acute on chronic diastolic heart failure exacerbation. 3. Acute kidney injury on chronic kidney disease stage 3. 4. Coronary artery disease s/p CABG 5. Chronic respiratory failure, on home oxygen. 6. Hypertension. 7. Diabetes mellitus, type 2, diet controlled. 8. Hypothyroidism. 9. History of bioprosthetic mitral valve. 10. Chronic anemia. 11. History of pulmonary embolism. 12. Par Afib - not tolerating anticoag 13. Hyperlipidemia. 14. Gastroesophageal reflux disease. 15. History of coronary stents. 16. Anxiety. 17. Pancytopenia. 18. Gout. PLAN: Multaq dose reduced to 200 mg TID due to nausea Cont Lasix drip @3mg/hr - dc tonight Start PO Lasix Cont Metoprolol Cont other meds as above Not on Heparin due to Anemia BMP in AM [facility]
--- NOTE | 2019-04-21 18:22 | PRG ---
DATE OF SERVICE: 04/21/2019 SERVICE: Pulmonary Medicine. INTERVAL HISTORY: The patient is breathing very comfortably. Her abdominal distention has improved. She is actually walking the hallways to some extent. She does not have nearly as much dyspnea that limits her activity. Her lower extremity swelling is improving. PHYSICAL EXAMINATION: VITAL SIGNS: Afebrile, pulse 60, blood pressure 130/60, respirations 16, and saturation 98% on 2 L nasal cannula. GENERAL: The patient is awake and alert, in no apparent distress. LUNGS: Wonderful air entry. Crackles are still present. There is no prolonged expiratory phase or wheezing appreciated. HEART: Normal rate. Regular. ABDOMEN: Soft, nontender, and nondistended. Bowel sounds are positive. MUSCULOSKELETAL: No cyanosis or clubbing. There is trace to 1+ pitting limited to the ankles now. NEUROLOGIC: Grossly nonfocal. LABORATORY DATA: WBC 6.7, hemoglobin 10.6, and platelets 117,000. Creatinine 1.54, which is gently downtrending; BUN 50, also improving. Basic metabolic profile is otherwise unremarkable. Urine culture is growing E coli. Blood cultures x2 and influenza A and B are unremarkable. ASSESSMENT: 1. Acute on chronic hypoxic respiratory failure. 2. Acute on chronic diastolic heart failure. 3. Acute kidney injury on chronic kidney disease 4, resolved. 4. Restrictive lung disease, chronic. 5. History of obstructive sleep apnea. DISCUSSION AND PLAN: The patient is doing great from a respiratory standpoint. She really does not have an underlying lung disease that we are aware of. At this point, we will continue diurese down to euvolemia as tolerated. She has no requirements for further inpatient pulmonary/critical care opinion, and I will sign off. Please call with additional questions or concerns through time. In the outpatient setting, I have suggested that she discuss a polysomnogram with Dr. Baca. Job ID: [id number]
[2019-04-21] MEDS: Polyethylene Glycol 3350 17 GM Packet PO SCH (21:11)
[2019-04-21] MEDS: traMADol HCl 50 MG TAB PO PRN (21:16)
[2019-04-22 05:20] LABS: Anion Gap 11 mmol/L (10-20); BUN (Urea Nitrogen) 45 mg/dL (9.8-20.1); Calc. Creatinine Clearance 32 mL/min (70-130); Carbon Dioxide 37 mmol/L (23-31); Chloride 98 mmol/L (98-107); Estimated GFR-MDRD 32; Glucose 126 mg/dL (83-110); Potassium 3.8 mmol/L (3.5-5.1); Sodium 142 mmol/L (136-145)
[2019-04-22] MEDS: Levothyroxine Sodium 75 MCG TAB PO SCH (05:48)
[2019-04-22] MEDS: Furosemide 40 MG TAB PO SCH (08:36)
[2019-04-22] MEDS: Acetaminophen 325 MG TAB PO SCH (08:36)
[2019-04-22] MEDS: Dronedarone HCl 400 MG TAB PO SCH ×2 (08:36→12:06)
[2019-04-22] MEDS: guaiFENesin ER 600 MG TAB PO SCH (08:36)
[2019-04-22] MEDS: Aspirin 81 mg Enteric Coated Tablet PO SCH (08:36)
[2019-04-22] MEDS: Cyanocobalamin (Vitamin B-12) 1,000 MCG TAB PO SCH (08:36)
[2019-04-22] MEDS: Ubidecarenone 50 MG CAP PO SCH (08:37)
[2019-04-22] MEDS: Multivit, Therapeutic 1 TAB PO SCH (08:37)
[2019-04-22] MEDS ORDERED: Furosemide 20 MG TAB PO SCH (09:00)
[2019-04-22] MEDS: Metoprolol Tartrate 25 MG TAB PO SCH (09:14)
[2019-04-22 11:56] VITALS: BP 112/51; TEMP 97.7
--- NOTE | 2019-04-23 12:19 | DIS ---
DATE OF ADMISSION: 04/17/2019 DATE OF DISCHARGE: 04/22/2019 DISCHARGE DISPOSITION: To [facility] facility. The patient was seen and examined on the day of discharge. Denies any new complaints. No chest pain or shortness of breath reported. DISCHARGE MEDICATIONS: Multaq was changed to 200 mg 3 times daily. Metoprolol 25 mg twice daily was added. All other home medications were left unchanged. BRIEF HOSPITAL COURSE: The patient is an 83-year-old female with chronic diastolic heart failure, CKD stage 3, and chronic hypoxic respiratory failure on home oxygen, presented to the emergency room on 15 May 2019 with shortness of breath. A workup was consistent with acute on chronic diastolic heart failure exacerbation. The patient was seen by Cardiology, Dr. Mccormick as well as Pulmonary, Dr. Guerrero who was covering for Dr. Baca. She showed good improvement with gentle diuretics with Lasix drip due to elevated creatinine. Her weight at discharge is 160 pounds from 171 pounds on admission. Symptomatically, she feels much better. Due to persistent nausea with Multaq, the dose was reduced to 200 mg 3 times a day. She appears stable for discharge. FINAL DIAGNOSES: 1. Acute on chronic hypoxic respiratory failure secondary to acute on chronic diastolic heart failure exacerbation. 2. Acute kidney injury on chronic kidney disease, stage 3. 3. Coronary artery disease, status post coronary artery bypass grafting. 4. Chronic respiratory failure, on home oxygen. 5. Hypertension. 6. Diabetes mellitus type 2. 7. Hypothyroidism. 8. History of bioprosthetic mitral valve. 9. Chronic anemia. 10. History of pulmonary embolism. 11. Paroxysmal atrial fibrillation, not tolerating anticoagulation. 12. Hyperlipidemia. 13. Gastroesophageal reflux disease. 14. History of coronary stents. 15. Anxiety. 16. Chronic pancytopenia. 17. Gout. 18. Former smoker. 19. History of atrial flutter. The patient understands the above plan of care. Time coordinating the discharge of this patient was 34 minutes. Job ID: [id number]
--- NOTE | 2019-04-24 14:48 | EKG ---
Test Reason : Blood Pressure : / mmHG Vent. Rate : 076 BPM Atrial Rate : 076 BPM P-R Int : 000 ms QRS Dur : 094 ms QT Int : 432 ms P-R-T Axes : 000 040 053 degrees QTc Int : 486 ms Atrial-paced rhythm with frequent ventricular-paced complexes in a pattern of bigeminy Abnormal ECG Confirmed by STEPHEN EISENBERG ([id number]), scientific publications editor CLEVE VALENCIA ([id number]) on 04/24/2019 2:48:23 PM Referred By: Confirmed By:STEPHEN EISENBERG
== END 2019-04-22 13:54 | disposition swing bed (61) | DRG 291 ==
LOC: ERS 18:16 → 2SW 22:52 → OBSVTOIN 04-17 09:49
PROVIDERS: ADMIT Internal Medicine; ATTEND Internal Medicine
DX: I13.0 Hypertensive heart and chronic kidney disease with heart failure and stage 1 through stage 4 chronic kidney disease, or unspecified chronic kidney disease (principal); I50.33 Acute on chronic diastolic (congestive) heart failure; J96.21 Acute and chronic respiratory failure with hypoxia; J44.1 Chronic obstructive pulmonary disease with (acute) exacerbation; N18.4 Chronic kidney disease, stage 4 (severe); N17.9 Acute kidney failure, unspecified; D61.818 Other pancytopenia; D50.9 Iron deficiency anemia, unspecified; D63.1 Anemia in chronic kidney disease; I48.0 Paroxysmal atrial fibrillation; E03.9 Hypothyroidism, unspecified; I42.9 Cardiomyopathy, unspecified; I25.10 Atherosclerotic heart disease of native coronary artery without angina pectoris; E11.22 Type 2 diabetes mellitus with diabetic chronic kidney disease; E78.5 Hyperlipidemia, unspecified; G47.33 Obstructive sleep apnea (adult) (pediatric); F41.9 Anxiety disorder, unspecified; K21.9 Gastro-esophageal reflux disease without esophagitis; E78.00 Pure hypercholesterolemia, unspecified; M10.9 Gout, unspecified; E66.9 Obesity, unspecified; Z95.1 Presence of aortocoronary bypass graft; I25.2 Old myocardial infarction; Z95.0 Presence of cardiac pacemaker; Z95.2 Presence of prosthetic heart valve; Z90.49 Acquired absence of other specified parts of digestive tract; Z90.710 Acquired absence of both cervix and uterus; Z87.891 Personal history of nicotine dependence; Z88.0 Allergy status to penicillin; Z88.1 Allergy status to other antibiotic agents; Z88.8 Allergy status to other drugs, medicaments and biological substances; Z79.890 Hormone replacement therapy; Z79.82 Long term (current) use of aspirin; Z79.899 Other long term (current) drug therapy; Z68.26 Body mass index [BMI] 26.0-26.9, adult; Z86.711 Personal history of pulmonary embolism; Z99.81 Dependence on supplemental oxygen; Z95.5 Presence of coronary angioplasty implant and graft
CPT/HCPCS: 36415; 36416; 80048; 81003; 82805; 83735; 83880; 85025; 85060; 87040; 87077; 87086; 87186; 87804; 93005; 93798; 94640; 94760; 96361; 96365; J0456; J1940; J3490; J7620; Q0169

== ENCOUNTER 2019-06-21 19:09 | Inpatient (IN) | payer MEDICARE, OTHER ==
--- NOTE | 2019-06-21 20:24 | PDOC.HHP ---
Hospitalist HPI - History of Present Illness Shortness of breath History of Present Illness: Patient is an 83 year old female with PMH CHF who presents as transfer from [facility] for shortness of breath, lower extremity edema. Patient reports she has chronic CHF and is on lasix, over last few days she has gained several pounds and lower extremities have become swollen, she is always on 2L O2 and walks about 25 feet before SOB, is slightly worse despite oxygen use now. Her R leg is always more swollen than L leg, she says she has had tests on this leg before and nothin abnormal was found. She normally takes lasix 40mg PO bid and takes an extra tab if feeling SOB or swollen, but did not do that this time. In [place], patient was tachypneic, breathing 22-24 times a minute. She had bibasilar dependant crackles. BNP 618, TnI negative, EKG w/ new nonspecitic T wave changes/inversions in V1-V5, she recieved 60mg IV lasix and was transferred here for further workup. The lasix has caused improvement already, patient satting 100% on RA now, no shortness of breath, feeling somewhat better. Patient to be admitted for further workup and treatment. ED Course: VITAL SIGNS FriJune 21, 2019 21:22 AMADA Gordon, Dayna BP: 112/66 MAP: 81 Pulse: 61 Pain: 0 O2 sat: 100 on (2L Oxygen) Time: 06/21/2019 21:22. Hospitalist ROS - Review of Systems Constitutional: denies: fever, chills, sweats, weakness, malaise, other Eyes: denies: pain, vision change, conjunctivae inflammation, eyelid inflammation, redness, other ENT: denies: ear pain, ear discharge, nose pain, nose discharge, nose congestion , mouth pain, mouth swelling, throat pain, throat swelling, other Respiratory: reports: shortness of breath. denies: cough, dry, hemoptysis, SOB with excertion, pleuritic pain, sputum, wheezing, other Cardiovascular: reports: edema. denies: chest pain, palpitations, orthopnea, paroxysmal noc. dyspnea, light headedness, other Gastrointestinal: denies: nausea, vomiting, abdominal pain, diarrhea, constipation, melena, hematochezia, other Genitourinary: denies: dysuria, frequency, incontinence, hematuria, retention, other Musculoskeletal: denies: neck pain, shoulder pain, arm pain, back pain, hand pain, leg pain, foot pain, other Skin: denies: rash, lesions, kartik, bruising, other Neurological: denies: weakness, numbness, incoordination, change in speech, confusion, seizures, other All other systems reviewed; all pertinent +/- noted in HPI/Subj Hospitalist History - Past Medical History Other Medical History: Past medical history includes iron deficiency ANEMIA, diabetes type 2, hypothyroidism, hypertension, myocardial infarction, coronary artery disease, cardiomyopathy, Afib, PE - since wears 2L O2 at home. Notes: CHF. COPD. REVIEWED 06/21/2019. - Past Surgical History Other Surgical History: VALVE REPLACEMENTS x2 JULY 2001, LENS IMPLANTS BOTH EYES. NASAL SEPTUM REPAIR. ADENOIDS OUT, appendectomy, coronary artery bypass graft surgery, four vessels, cholecystectomy, hysterectomy, bilat oophorectomy, tonsillectomy. Bladder suspension, Mitral valve x2, pacemaker. REVIEWED 06/21/2019. - Family History Family History: reports: no pertinent history - Social History Smoking Status: Former smoker Alcohol: reports: None Drugs: reports: none - Exam General Appearance: NAD, awake alert Eye: PERRL, anicteric sclera ENT: normocephalic atraumatic, no oropharyngeal lesions, moist mucosa Neck: supple, symmetric, no JVD, no thyromegaly, no lymphadenopathy, no carotid bruit Heart: RRR, no murmur, no gallops, no rubs, normal peripheral pulses Respiratory: CTAB, no wheezes, no rales, no ronchi, normal chest expansion, no tachypnea, normal percussion Gastrointestinal: soft, non-tender, non-distended, normal bowel sounds, no palpable masses, no hepatomegaly, no splenomegaly, no bruit Extremities: no cyanosis, no clubbing, 2+ LE edema Extremities - other findings: R > L Skin: normal turgor, no lesions, no rashes Neurological: cranial nerve grossly intact, normal sensation to touch, no weakness, no focal deficits, no new deficit Musculoskeletal: normal tone, normal strength, no muscle wasting Psychiatric: normal affect, normal behavior, A&O x 3 Hospitalist Results - Labs Result Diagrams: 06/22/19 04:14 06/22/19 04:14 Lab results: Troponin I 0.019 ng/mL (< 0.028) 06/21/19 19:45 - EKG Interpretation EK bpm, paced Hospitalist H&P A/P - Plan Plan: Patient is an 83 year old female with PMH CHF who presents as transfer from [facility] for shortness of breath, lower extremity edema. # acute and chronic diastolic CHF w/ exacerbation - lower extremity edema noted, vascular US without DVT - admit to telemetry, continue home medication - lasix 60mg IV BID - I/Os # chronic hypoxic respiratory failure - continue home o2 2L/min # restrictive lung disease/chronic R heart failure - noted, continue O2 # valvular heart disease - s/p MVR w/ bioprosthetic valve 2001, redo in 2010 # Dm2 - SSI # history of afib - continue dronedarone, telemetry # s/p pacemaker - noted # HTN # CKD IV
[2019-06-21] MEDS ORDERED: cloNIDine 0.1 MG TAB PO PRN (21:12)
[2019-06-21] MEDS ORDERED: Ondansetron PF 4 MG/2 ML Vial IVP PRN (21:12)
[2019-06-21] MEDS ORDERED: Morphine 2 MG/ML SYRINGE SLOW IVP PRN (21:12)
[2019-06-21] MEDS ORDERED: Promethazine HCl 12.5 MG in Sodium Chloride 0.9% 50 ML IVPB PRN (21:12)
[2019-06-21] MEDS ORDERED: Labetalol HCl 100 MG/20 ML VIAL SLOW IVP PRN (21:12)
[2019-06-21] MEDS ORDERED: hydrALAZINE 20 MG/ML VIAL SLOW IVP PRN (21:12)
--- NOTE | 2019-06-21 22:14 | ULT ---
ULTRASOUND WITH DOPPLER DUPLEX VENOUS LOWER EXTREMITY RIGHT: HISTORY: 83-year-old female with right lower extremity edema. TECHNIQUE: Color flow Doppler, spectral waveform analysis of pulsed Doppler, and cordova-scale imaging with jennie celm and augmentation, were used to evaluate the right common femoral, femoral, popliteal, posterior tibial, and superficial femoral, veins; and the proximal portions of the profunda femoral and greater saphenous, veins. FINDINGS: There is normal compressibility, demonstration of blood flow by color Doppler and pulsed Doppler, and response to augmentation, in all interrogated veins. IMPRESSION: 1. No deep vein thrombosis in the right lower extremity. 2. Soft tissue edema in the right leg from the knee to the ankle. jn [] POS: JIN
[2019-06-21] MEDS: ALPRAZolam 0.5 MG TAB PO PRN (22:42)
[2019-06-21 22:54] LABS: Troponin I 0.012 ng/mL (< 0.028)
[2019-06-22 04:47] LABS: #Eosinphils 0.7 thou/uL (0.0-0.7); #Lymphocytes 0.8 thou/uL (1.20-3.40); #Monocytes 0.4 thou/uL (0.11-0.59); #Neutrophils 2.9 thou/uL (1.40-6.50); %Basophils 0.5 % (0.0-1.0); %Eosinophils 14.7 % (0.0-10.0); %Lymphocytes 16.5 % (21.0-51.0); %Monocytes 8.5 % (0.0-10.0); %Neutrophils 59.7 % (42.0-75.0); Hemoglobin 10.5 g/dL (12.0-16.0); Mean Corpuscular HGB CONC 31.5 g/dL (32.0-36.0); Mean Corpuscular Hemoglobin 32.3 pg (27.0-31.0); Mean Platelet Volume 9.5 fL (7.4-10.4); Platelet Count 105 thou/uL (130-400); RBC Distribution Width 14.5 % (11.5-14.5); Red Blood Cell (RBC) Count 3.26 mill/uL (4.20-5.40); White Blood Cell (WBC) Count 4.9 thou/uL (4.8-10.8)
[2019-06-22 05:01] LABS: Anion Gap 12 mmol/L (10-20); BUN (Urea Nitrogen) 34 mg/dL (9.8-20.1); Calc. Creatinine Clearance 40 mL/min (70-130); Calcium 9.1 mg/dL (7.8-10.44); Carbon Dioxide 32 mmol/L (23-31); Chloride 102 mmol/L (98-107); Estimated GFR-MDRD 32; Glucose 119 mg/dL (83-110); Magnesium 2.2 mg/dL (1.6-2.6); Potassium 3.6 mmol/L (3.5-5.1); Sodium 142 mmol/L (136-145)
[2019-06-22 05:06] LABS: Troponin I 0.023 ng/mL (< 0.028)
[2019-06-22] MEDS: Levothyroxine Sodium 75 MCG TAB PO SCH (06:13)
[2019-06-22] MEDS: Furosemide 100 MG/10 ML VIAL SLOW IVP SCH ×2 (06:13→14:18)
[2019-06-22] MEDS ORDERED: Dronedarone HCl 400 MG TAB PO SCH ×3 (08:00→15:00)
[2019-06-22] MEDS: Losartan 25 MG TAB PO SCH (09:30)
[2019-06-22] MEDS: Allopurinol 100 MG TAB PO SCH ×2 (09:31→20:59)
[2019-06-22] MEDS: Cyanocobalamin (Vitamin B-12) 1,000 MCG TAB PO SCH (09:31)
[2019-06-22] MEDS: Aspirin 81 mg Enteric Coated Tablet PO SCH (09:31)
[2019-06-22] MEDS: Polyethylene Glycol 3350 17 GM Packet PO SCH ×2 (09:33→21:04)
[2019-06-22] MEDS: Metoprolol Tartrate 25 MG TAB PO SCH ×2 (09:33→20:59)
[2019-06-22 09:45] LABS: Troponin I 0.015 ng/mL (< 0.028)
--- NOTE | 2019-06-22 15:07 | PDOC.HOSPP ---
- Subjective Encounter Date: 06/22/19 Subjective: Feels better. - Objective Vital Signs & Weight: Vital Signs (12 hours) Temp Pulse Resp BP BP Pulse Ox 06/22/19 11:15 97.7 F 63 16 122/55 L 96 06/22/19 07:52 97.8 F 61 16 123/50 L 94 L 06/22/19 03:06 97.7 F 60 20 107/51 L 96 Weight Weight 204 lb 11.2 oz I&O: 06/21/19 06/22/19 06/23/19 06:59 06:59 06:59 Output Total 600 Balance -600 Result Diagrams: 06/22/19 04:14 06/22/19 04:14 Hospitalist ROS - Medication Medications: Active Medications Generic Name Dose Route Start Last Admin Trade Name Freq PRN Reason Stop Dose Admin Allopurinol 100 mg 06/22/19 09:00 06/22/19 09:31 Zyloprim PO 100 mg BID KELLY Administration Alprazolam 0.5 mg 06/21/19 21:07 06/21/19 22:42 Xanax PO 0.5 mg HS PRN Administration Anxiety/Sleep/Spasm Aspirin 81 mg 06/22/19 09:00 06/22/19 09:31 Ecotrin PO 81 mg DAILY KELLY Administration Cyanocobalamin 1,000 mcg 06/22/19 09:00 06/22/19 09:31 Vitamin B-12 PO 1,000 mcg DAILY KELLY Administration Furosemide 60 mg 06/22/19 06:00 06/22/19 14:18 Lasix SLOW IVP 60 mg 0600,1400 KELLY Administration Levothyroxine Sodium 75 mcg 06/22/19 06:00 06/22/19 06:13 Synthroid PO 75 mcg 0600 KELLY Administration Losartan Potassium 50 mg 06/22/19 09:00 06/22/19 09:30 Cozaar PO 50 mg DAILY KELLY Administration Metoprolol Tartrate 25 mg 06/22/19 09:00 06/22/19 09:33 Lopressor PO Not Given BID KELLY Pantoprazole Sodium 40 mg 06/22/19 09:00 06/22/19 09:31 Protonix PO 40 mg DAILY KELLY Administration Polyethylene Glycol 17 gm 06/22/19 09:00 06/22/19 09:33 Miralax PO Not Given DAILY KELLY Sodium Chloride 10 ml 06/21/19 21:18 05/05/20 09:30 Flush - Normal Saline IVF 10 ml PRN PRN Administration Saline Flush - Exam General Appearance: awake alert Neck: supple Heart: RRR Respiratory: normal chest expansion, no tachypnea, rhonchi Gastrointestinal: soft Extremities: no cyanosis, no clubbing Neurological: cranial nerve grossly intact, no focal deficits Hosp A/P (1) Acute and chronic respiratory failure with hypoxia Code(s): J96.21 - ACUTE AND CHRONIC RESPIRATORY FAILURE WITH HYPOXIA Status: Chronic (2) Acute on chronic diastolic ACC/AHA stage C congestive heart failure Code(s): I50.33 - ACUTE ON CHRONIC DIASTOLIC (CONGESTIVE) HEART FAILURE Status : Chronic (3) CAD (coronary artery disease) Code(s): I25.10 - ATHSCL HEART DISEASE OF [place] CORONARY ARTERY W/O ANG PCTRS Status: Chronic Qualifiers: Coronary Disease-Associated Artery/Lesion type: bypass graft [place] vs. transplanted heart: [place] heart Associated angina: without angina Qualified Code(s): I25.810 - Atherosclerosis of coronary artery bypass graft(s) without angina pectoris (4) Diabetes type 2, controlled Code(s): E11.9 - TYPE 2 DIABETES MELLITUS WITHOUT COMPLICATIONS Status: Chronic Qualifiers: Diabetes mellitus jail insulin use: with salvage determiner use Diabetes mellitus complication status: without complication Qualified Code(s): E11.9 - Type 2 diabetes mellitus without complications; Z79.4 - manager terminal (current) use of insulin (5) HLD (hyperlipidemia) Code(s): E78.5 - HYPERLIPIDEMIA, UNSPECIFIED Status: Chronic Qualifiers: Hyperlipidemia type: pure hypercholesterolemia Qualified Code(s): E78.00 - Pure hypercholesterolemia, unspecified; E78.0 - Pure hypercholesterolemia (6) Hypothyroidism Code(s): E03.9 - HYPOTHYROIDISM, UNSPECIFIED Status: Chronic Qualifiers: Hypothyroidism type: unspecified Qualified Code(s): E03.9 - Hypothyroidism , unspecified (7) Atrial flutter Code(s): I48.92 - UNSPECIFIED ATRIAL FLUTTER Status: Resolved - Plan Diuresing well. SOB improving. Continue IV lasix. Continue low salt diet and fluid restriction. Cardiopulmonary outpatient rehab after DC.
[2019-06-22] MEDS: Dronedarone HCl 400 MG TAB PO SCH (18:11)
[2019-06-22] MEDS: Insulin Glargine 10 UNITS in Pre-Filled Syringe 1 EACH SC SCH (21:00)
[2019-06-22] MEDS: ALPRAZolam 0.5 MG TAB PO PRN (23:26)
[2019-06-23 04:45] LABS: #Eosinphils 0.6 thou/uL (0.0-0.7); #Lymphocytes 0.9 thou/uL (1.20-3.40); #Monocytes 0.5 thou/uL (0.11-0.59); #Neutrophils 2.7 thou/uL (1.40-6.50); %Basophils 0.2 % (0.0-1.0); %Eosinophils 12.6 % (0.0-10.0); %Lymphocytes 19.1 % (21.0-51.0); %Monocytes 10.3 % (0.0-10.0); %Neutrophils 57.8 % (42.0-75.0); Hemoglobin 10.1 g/dL (12.0-16.0); Mean Corpuscular HGB CONC 30.4 g/dL (32.0-36.0); Mean Corpuscular Hemoglobin 32.1 pg (27.0-31.0); Mean Platelet Volume 9.7 fL (7.4-10.4); Platelet Count 98 thou/uL (130-400); RBC Distribution Width 14.8 % (11.5-14.5); Red Blood Cell (RBC) Count 3.16 mill/uL (4.20-5.40); White Blood Cell (WBC) Count 4.6 thou/uL (4.8-10.8)
[2019-06-23 05:09] LABS: Anion Gap 16 mmol/L (10-20); BUN (Urea Nitrogen) 33 mg/dL (9.8-20.1); Calc. Creatinine Clearance 45 mL/min (70-130); Calcium 8.6 mg/dL (7.8-10.44); Carbon Dioxide 27 mmol/L (23-31); Chloride 102 mmol/L (98-107); Estimated GFR-MDRD 37; Glucose 114 mg/dL (83-110); Magnesium 2.1 mg/dL (1.6-2.6); Potassium 3.9 mmol/L (3.5-5.1); Sodium 141 mmol/L (136-145)
[2019-06-23] MEDS: Furosemide 100 MG/10 ML VIAL SLOW IVP SCH ×2 (05:53→14:51)
[2019-06-23] MEDS: Levothyroxine Sodium 75 MCG TAB PO SCH (05:57)
[2019-06-23] MEDS: Allopurinol 100 MG TAB PO SCH ×2 (08:13→20:43)
[2019-06-23] MEDS: Metoprolol Tartrate 25 MG TAB PO SCH ×2 (08:13→20:43)
[2019-06-23] MEDS: Aspirin 81 mg Enteric Coated Tablet PO SCH (08:13)
[2019-06-23] MEDS: Cyanocobalamin (Vitamin B-12) 1,000 MCG TAB PO SCH (08:13)
[2019-06-23] MEDS: Losartan 25 MG TAB PO SCH (08:14)
[2019-06-23] MEDS: Dronedarone HCl 400 MG TAB PO SCH ×3 (08:14→17:42)
[2019-06-23] MEDS: Polyethylene Glycol 3350 17 GM Packet PO SCH (08:16)
--- NOTE | 2019-06-23 14:04 | PDOC.HOSPP ---
- Subjective Encounter Date: 06/23/19 Subjective: Feeling better. - Objective Vital Signs & Weight: Vital Signs (12 hours) Temp Pulse Resp BP Pulse Ox 06/23/19 11:05 97.5 F L 78 16 112/57 L 94 L 06/23/19 07:03 97.7 F 60 16 113/54 L 97 06/23/19 03:14 97.6 F 69 20 95/55 L 96 Weight Weight 201 lb 9.6 oz I&O: 06/22/19 06/23/19 06/24/19 06:59 06:59 06:59 Intake Total 1120 Output Total 1975 500 Balance -855 -500 Result Diagrams: 06/23/19 04:04 06/23/19 04:04 Additional Labs: Accuchecks 06/23/19 06/22/19 05:44 20:32 POC Glucose 131 H 222 H Hospitalist ROS - Medication Medications: Active Medications Generic Name Dose Route Start Last Admin Trade Name Freq PRN Reason Stop Dose Admin Allopurinol 100 mg 06/22/19 09:00 06/23/19 08:13 Zyloprim PO 100 mg BID KELLY Administration Alprazolam 0.5 mg 06/21/19 21:07 06/22/19 23:26 Xanax PO 0.5 mg HS PRN Administration Anxiety/Sleep/Spasm Aspirin 81 mg 06/22/19 09:00 06/23/19 08:13 Ecotrin PO 81 mg DAILY KELLY Administration Cyanocobalamin 1,000 mcg 06/22/19 09:00 06/23/19 08:13 Vitamin B-12 PO 1,000 mcg DAILY KELLY Administration Dronedarone 200 mg 06/22/19 17:00 06/23/19 11:43 Multaq PO 200 mg TID-WM KELLY Administration Furosemide 60 mg 06/22/19 06:00 06/23/19 05:53 Lasix SLOW IVP 60 mg 0600,1400 KELLY Administration Insulin Glargine 10 units/ 0.1 mls @ 0 mls/hr 06/22/19 21:00 06/22/19 21:00 Miscellaneous Medication SC 0.1 mls HS KELLY Administration Levothyroxine Sodium 75 mcg 06/22/19 06:00 06/23/19 05:57 Synthroid PO 75 mcg 0600 KELLY Administration Losartan Potassium 50 mg 06/22/19 09:00 06/23/19 08:14 Cozaar PO 50 mg DAILY KELLY Administration Metoprolol Tartrate 25 mg 06/22/19 09:00 06/23/19 08:13 Lopressor PO 25 mg BID KELLY Administration Pantoprazole Sodium 40 mg 06/22/19 09:00 06/23/19 08:13 Protonix PO 40 mg DAILY KELLY Administration Polyethylene Glycol 17 gm 06/22/19 09:00 06/23/19 08:16 Miralax PO Not Given DAILY KELLY Sodium Chloride 10 ml 06/21/19 21:18 06/22/19 09:30 Flush - Normal Saline IVF 10 ml PRN PRN Administration Saline Flush - Exam General Appearance: awake alert ENT: normocephalic atraumatic Neck: supple Heart: RRR Respiratory: normal chest expansion, no tachypnea Extremities: no cyanosis, no clubbing, 1+ LE edema Neurological: cranial nerve grossly intact, no focal deficits Hosp A/P (1) Acute and chronic respiratory failure with hypoxia Code(s): J96.21 - ACUTE AND CHRONIC RESPIRATORY FAILURE WITH HYPOXIA Status: Chronic (2) Acute on chronic diastolic ACC/AHA stage C congestive heart failure Code(s): I50.33 - ACUTE ON CHRONIC DIASTOLIC (CONGESTIVE) HEART FAILURE Status : Chronic (3) CAD (coronary artery disease) Code(s): I25.10 - ATHSCL HEART DISEASE OF [place] CORONARY ARTERY W/O ANG PCTRS Status: Chronic Qualifiers: Coronary Disease-Associated Artery/Lesion type: bypass graft [place] vs. transplanted heart: [place] heart Associated angina: without angina Qualified Code(s): I25.810 - Atherosclerosis of coronary artery bypass graft(s) without angina pectoris (4) Diabetes type 2, controlled Code(s): E11.9 - TYPE 2 DIABETES MELLITUS WITHOUT COMPLICATIONS Status: Chronic Qualifiers: Diabetes mellitus long term care pharmacist insulin use: with long term care pharmacist use Diabetes mellitus complication status: without complication Qualified Code(s): E11.9 - Type 2 diabetes mellitus without complications; Z79.4 - FDC (current) use of insulin (5) HLD (hyperlipidemia) Code(s): E78.5 - HYPERLIPIDEMIA, UNSPECIFIED Status: Chronic Qualifiers: Hyperlipidemia type: pure hypercholesterolemia Qualified Code(s): E78.00 - Pure hypercholesterolemia, unspecified; E78.0 - Pure hypercholesterolemia (6) Hypothyroidism Code(s): E03.9 - HYPOTHYROIDISM, UNSPECIFIED Status: Chronic Qualifiers: Hypothyroidism type: unspecified Qualified Code(s): E03.9 - Hypothyroidism , unspecified (7) Atrial flutter Code(s): I48.92 - UNSPECIFIED ATRIAL FLUTTER Status: Resolved - Plan Negative fluid balance over the past 24h. SOB and LE swelling are improving. Continue IV lasix. Continue low salt diet and fluid restriction. Creatinine level improving.
[2019-06-23] MEDS: Insulin Glargine 10 UNITS in Pre-Filled Syringe 1 EACH SC SCH (20:43)
[2019-06-23] MEDS: ALPRAZolam 0.5 MG TAB PO PRN (23:11)
--- NOTE | 2019-06-24 00:50 | CON ---
DATE OF CONSULTATION: HISTORY OF PRESENT ILLNESS: The patient is a pleasant 83-year-old woman who presented with increasing dyspnea and lower extremity swelling. The patient has a history of coronary artery bypass surgery and mitral valve replacement. The patient in 2000, underwent coronary artery bypass surgery x3 and mitral valve replacement. In April 2001. She had a stent placed in the right coronary artery after having graft closure. She subsequently in 2010 underwent coronary artery bypass surgery x1 to the right coronary artery and replacement of the bioprosthetic mitral valve. The patient also has a history of atrial fibrillation. She has previously been on amiodarone. The patient has been on anticoagulation therapy, but has had significant bleeding,on both on Xarelto and Eliquis. The patient has had previously placement of an electronic pacemaker. The patient has most recently been on Multaq. She had been admitted several months ago with congestive heart failure. She presents again with increasing dyspnea and lower extremity swelling. The patient denies having any chest discomfort. PAST MEDICAL HISTORY: 1. Coronary artery disease. 2. COPD. 3. History of pulmonary embolus. 4. GI hemorrhage. 5. Hypothyroidism. 6. Renal insufficiency. PAST SURGICAL HISTORY: Cataract surgery, cholecystectomy, tonsillectomy, coronary artery bypass surgery x2 and mitral valve replacement x2, bladder suspension surgery. MEDICATIONS: See nursing list. ALLERGIES: PENICILLIN, NITROFURANTOIN, XARELTO, ELIQUIS, ZOCOR, TALWIN. SOCIAL HISTORY: Nonsmoker. REVIEW OF SYSTEMS: Ten-point system otherwise unremarkable except for noted progressive chronic swelling of her right foot. PHYSICAL EXAMINATION: GENERAL: This is an obese woman, in no acute distress. VITAL SIGNS: Blood pressure 110/55. NECK: Showed no jugular venous distention. LUNGS: Have coarse breath sounds, bilateral. HEART: Regular rate and rhythm with a normal S1, S2 and a 1/6 systolic murmur. ABDOMEN: Distended. EXTREMITIES: Showed 2+ edema of the right lower extremity. VASCULAR: Radial pulses are 2+. LABORATORY RESULTS: Sodium 141, potassium 3.9, chloride 102, bicarbonate 27, BUN 33, glucose 114. White blood count 4.6, hemoglobin 10.1, hematocrit 33.3, and platelets are 98. EKG dual-chamber electronic pacemaker. IMPRESSION: 1. Congestive heart failure secondary to diastolic dysfunction. 2. History of coronary artery bypass surgery x2. 3. History of pacemaker placement. 4. History of atrial fibrillation. 5. Severe tricuspid regurgitation. 6. History of pulmonary embolism. 7. History of possible chronic obstructive pulmonary disease. 8. History of gastrointestinal hemorrhage. PLAN: This patient presents again with recurrent congestive heart failure. From a cardiac standpoint, she has been diuresed with IV Lasix. She underwent an ultrasound, which revealed no evidence of a DVT. From a cardiac standpoint with recurrent heart failure, she may be better off on amiodarone than on Multaq. We will follow this patient with you through her hospitalization. Further recommendations to follow. Job ID: [id number] [facility]
[2019-06-24 04:53] LABS: #Eosinphils 0.7 thou/uL (0.0-0.7); #Lymphocytes 0.9 thou/uL (1.20-3.40); #Monocytes 0.5 thou/uL (0.11-0.59); #Neutrophils 2.4 thou/uL (1.40-6.50); %Basophils 0.8 % (0.0-1.0); %Eosinophils 15.4 % (0.0-10.0); %Lymphocytes 21.1 % (21.0-51.0); %Monocytes 10.1 % (0.0-10.0); %Neutrophils 52.6 % (42.0-75.0); Hemoglobin 10.3 g/dL (12.0-16.0); Mean Corpuscular HGB CONC 31.1 g/dL (32.0-36.0); Mean Platelet Volume 9.9 fL (7.4-10.4); Platelet Count 96 thou/uL (130-400); RBC Distribution Width 14.6 % (11.5-14.5); Red Blood Cell (RBC) Count 3.23 mill/uL (4.20-5.40); White Blood Cell (WBC) Count 4.5 thou/uL (4.8-10.8)
[2019-06-24 05:13] LABS: Anion Gap 13 mmol/L (10-20); BUN (Urea Nitrogen) 40 mg/dL (9.8-20.1); Calc. Creatinine Clearance 36 mL/min (70-130); Calcium 8.5 mg/dL (7.8-10.44); Carbon Dioxide 31 mmol/L (23-31); Chloride 99 mmol/L (98-107); Estimated GFR-MDRD 29; Glucose 129 mg/dL (83-110); Magnesium 2.1 mg/dL (1.6-2.6); Potassium 3.6 mmol/L (3.5-5.1); Sodium 139 mmol/L (136-145)
[2019-06-24] MEDS: Levothyroxine Sodium 75 MCG TAB PO SCH (05:46)
[2019-06-24] MEDS: Furosemide 100 MG/10 ML VIAL SLOW IVP SCH (05:48)
[2019-06-24] MEDS: Dronedarone HCl 400 MG TAB PO SCH ×3 (09:01→17:44)
[2019-06-24] MEDS: Cyanocobalamin (Vitamin B-12) 1,000 MCG TAB PO SCH (09:02)
[2019-06-24] MEDS: Allopurinol 100 MG TAB PO SCH ×2 (09:02→20:40)
[2019-06-24] MEDS: Polyethylene Glycol 3350 17 GM Packet PO SCH ×2 (09:02→20:39)
[2019-06-24] MEDS: Aspirin 81 mg Enteric Coated Tablet PO SCH (09:02)
[2019-06-24] MEDS: Losartan 25 MG TAB PO SCH (09:02)
[2019-06-24] MEDS: Metoprolol Tartrate 25 MG TAB PO SCH ×2 (09:02→20:40)
--- NOTE | 2019-06-24 11:59 | PDOC.HOSPP ---
- Subjective Encounter Date: 06/24/19 Subjective: She is breathing better today. - Objective Vital Signs & Weight: Vital Signs (12 hours) Temp Pulse Resp BP BP Pulse Ox 06/24/19 08:55 97.7 F 60 18 118/53 L 93 L 06/24/19 04:39 103/75 06/24/19 03:40 97.6 F 60 16 85/45 L 97 Weight Weight 202 lb I&O: 06/23/19 06/24/19 06/25/19 06:59 06:59 06:59 Intake Total 1120 1160 Output Total 1975 950 Balance -855 210 Result Diagrams: 06/24/19 04:12 06/24/19 04:12 Additional Labs: Accuchecks 06/23/19 20:12 POC Glucose 197 H Hospitalist ROS - Medication Medications: Active Medications Generic Name Dose Route Start Last Admin Trade Name Freq PRN Reason Stop Dose Admin Allopurinol 100 mg 06/22/19 09:00 06/24/19 09:02 Zyloprim PO 100 mg BID KELLY Administration Alprazolam 0.5 mg 06/21/19 21:07 06/23/19 23:11 Xanax PO 0.5 mg HS PRN Administration Anxiety/Sleep/Spasm Aspirin 81 mg 06/22/19 09:00 06/24/19 09:02 Ecotrin PO 81 mg DAILY KELLY Administration Cyanocobalamin 1,000 mcg 06/22/19 09:00 06/24/19 09:02 Vitamin B-12 PO 1,000 mcg DAILY KELLY Administration Dronedarone 200 mg 06/22/19 17:00 06/24/19 09:01 Multaq PO 200 mg TID-WM KELLY Administration Insulin Glargine 10 units/ 0.1 mls @ 0 mls/hr 06/22/19 21:00 06/23/19 20:43 Miscellaneous Medication SC 0.1 mls HS KELLY Administration Levothyroxine Sodium 75 mcg 06/22/19 06:00 06/24/19 05:46 Synthroid PO 75 mcg 0600 KELLY Administration Losartan Potassium 50 mg 06/22/19 09:00 06/24/19 09:02 Cozaar PO 50 mg DAILY KELLY Administration Metoprolol Tartrate 25 mg 06/22/19 09:00 06/24/19 09:02 Lopressor PO 25 mg BID KELLY Administration Pantoprazole Sodium 40 mg 06/22/19 09:00 06/24/19 09:02 Protonix PO 40 mg DAILY KELLY Administration Polyethylene Glycol 17 gm 06/22/19 09:00 06/24/19 09:02 Miralax PO Not Given DAILY KELLY Sodium Chloride 10 ml 06/21/19 21:18 06/22/19 09:30 Flush - Normal Saline IVF 10 ml PRN PRN Administration Saline Flush - Exam General Appearance: awake alert Neck: supple Heart: RRR Respiratory: no tachypnea, rhonchi Gastrointestinal: soft Neurological: cranial nerve grossly intact, no weakness Hosp A/P (1) Acute and chronic respiratory failure with hypoxia Code(s): J96.21 - ACUTE AND CHRONIC RESPIRATORY FAILURE WITH HYPOXIA Status: Chronic (2) Acute on chronic diastolic ACC/AHA stage C congestive heart failure Code(s): I50.33 - ACUTE ON CHRONIC DIASTOLIC (CONGESTIVE) HEART FAILURE Status : Chronic (3) CAD (coronary artery disease) Code(s): I25.10 - ATHSCL HEART DISEASE OF [place] CORONARY ARTERY W/O ANG PCTRS Status: Chronic Qualifiers: Coronary Disease-Associated Artery/Lesion type: bypass graft [place] vs. transplanted heart: [place] heart Associated angina: without angina Qualified Code(s): I25.810 - Atherosclerosis of coronary artery bypass graft(s) without angina pectoris (4) Diabetes type 2, controlled Code(s): E11.9 - TYPE 2 DIABETES MELLITUS WITHOUT COMPLICATIONS Status: Chronic Qualifiers: Diabetes mellitus intermodal dispatcher insulin use: with intermodal dispatcher use Diabetes mellitus complication status: without complication Qualified Code(s): E11.9 - Type 2 diabetes mellitus without complications; Z79.4 - intermodal dispatcher (current) use of insulin (5) HLD (hyperlipidemia) Code(s): E78.5 - HYPERLIPIDEMIA, UNSPECIFIED Status: Chronic Qualifiers: Hyperlipidemia type: pure hypercholesterolemia Qualified Code(s): E78.00 - Pure hypercholesterolemia, unspecified; E78.0 - Pure hypercholesterolemia (6) Hypothyroidism Code(s): E03.9 - HYPOTHYROIDISM, UNSPECIFIED Status: Chronic Qualifiers: Hypothyroidism type: unspecified Qualified Code(s): E03.9 - Hypothyroidism , unspecified (7) Atrial flutter Code(s): I48.92 - UNSPECIFIED ATRIAL FLUTTER Status: Resolved - Plan Negative fluid balance since admission. SOB and LE swelling are improving. Continue low salt diet and fluid restriction. Creatinine level worsening. Decrease lasix to 40 mg BID.
[2019-06-24] MEDS ORDERED: Metolazone 2.5 MG TAB PO SCH (13:30)
[2019-06-24] MEDS: Furosemide 40 MG/4 ML VIAL SLOW IVP SCH (13:54)
[2019-06-24] MEDS: Insulin Glargine 10 UNITS in Pre-Filled Syringe 1 EACH SC SCH (20:41)
[2019-06-24] MEDS: ALPRAZolam 0.5 MG TAB PO PRN (23:04)
[2019-06-25 04:49] LABS: Anion Gap 11 mmol/L (10-20); BUN (Urea Nitrogen) 45 mg/dL (9.8-20.1); Calc. Creatinine Clearance 32 mL/min (70-130); Calcium 8.8 mg/dL (7.8-10.44); Carbon Dioxide 35 mmol/L (23-31); Chloride 98 mmol/L (98-107); Estimated GFR-MDRD 25; Glucose 114 mg/dL (83-110); Potassium 4.1 mmol/L (3.5-5.1); Sodium 140 mmol/L (136-145)
[2019-06-25] MEDS: Levothyroxine Sodium 75 MCG TAB PO SCH (05:14)
[2019-06-25] MEDS: Furosemide 40 MG/4 ML VIAL SLOW IVP SCH ×2 (05:14→14:17)
[2019-06-25 05:41] LABS: Hemoglobin 10.5 g/dL (12.0-16.0); Mean Corpuscular HGB CONC 31.2 g/dL (32.0-36.0); Mean Corpuscular Hemoglobin 31.9 pg (27.0-31.0); Mean Platelet Volume 9.9 fL (7.4-10.4); Platelet Count 90 thou/uL (130-400); RBC Distribution Width 14.4 % (11.5-14.5); Red Blood Cell (RBC) Count 3.28 mill/uL (4.20-5.40); White Blood Cell (WBC) Count 5.1 thou/uL (4.8-10.8)
[2019-06-25 06:36] LABS: Band 5 % (5-11); Eosinophils 18 % (0-10); Lymphocytes 17 % (21-51); MDiff Complete? YES; Macrocytosis SLIGHT = 6-15 cells (100X) (0-5/hpf); Monocytes 10 % (0-10); Neutrophil 50 % (42-75); Platelet Morphology Comment Appears Decreased
[2019-06-25] MEDS: Dronedarone HCl 400 MG TAB PO SCH ×3 (08:25→17:35)
[2019-06-25] MEDS: Allopurinol 100 MG TAB PO SCH ×2 (08:26→20:56)
[2019-06-25] MEDS: Aspirin 81 mg Enteric Coated Tablet PO SCH (08:26)
[2019-06-25] MEDS: Cyanocobalamin (Vitamin B-12) 1,000 MCG TAB PO SCH (08:26)
[2019-06-25] MEDS: Polyethylene Glycol 3350 17 GM Packet PO SCH (10:32)
[2019-06-25] MEDS: Metoprolol Tartrate 25 MG TAB PO SCH ×2 (10:32→20:56)
--- NOTE | 2019-06-25 16:45 | PDOC.HOSPP ---
- Subjective Encounter Date: 06/25/19 Subjective: The patient was seen and examined. She stated that she is feeling better but has shortness of breath did not resolve yet. - Objective Vital Signs & Weight: Vital Signs (12 hours) Temp Pulse Resp BP BP Pulse Ox 06/25/19 15:25 97.9 F 60 16 110/58 L 94 L 06/25/19 12:30 61 18 06/25/19 11:50 97.4 F L 60 16 121/58 L 96 06/25/19 08:19 97.5 F L 60 18 97/49 L 94 L Weight Weight 205 lb 9.6 oz I&O: 06/24/19 06/25/19 06/26/19 06:59 06:59 06:59 Intake Total 1160 1060 Output Total 950 1150 Balance 210 -90 Result Diagrams: 06/25/19 04:11 06/25/19 04:11 Additional Labs: Accuchecks 06/25/19 06/25/19 06/24/19 11:06 06:04 20:16 POC Glucose 161 H 110 215 H Hospitalist ROS - Medication Medications: Active Medications Generic Name Dose Route Start Last Admin Trade Name Freq PRN Reason Stop Dose Admin Albuterol/Ipratropium 3 ml 06/25/19 13:00 06/25/19 12:30 Duoneb NEB 3 ml [id number] KELLY Administration Allopurinol 100 mg 06/22/19 09:00 06/25/19 08:26 Zyloprim PO 100 mg BID KELLY Administration Alprazolam 0.5 mg 06/21/19 21:07 06/24/19 23:04 Xanax PO 0.5 mg HS PRN Administration Anxiety/Sleep/Spasm Aspirin 81 mg 06/22/19 09:00 06/25/19 08:26 Ecotrin PO 81 mg DAILY KELLY Administration Cyanocobalamin 1,000 mcg 06/22/19 09:00 06/25/19 08:26 Vitamin B-12 PO 1,000 mcg DAILY KELLY Administration Dronedarone 200 mg 06/22/19 17:00 06/25/19 11:48 Multaq PO 200 mg TID-WM KELLY Administration Insulin Glargine 10 units/ 0.1 mls @ 0 mls/hr 06/22/19 21:00 05/07/20 20:41 Miscellaneous Medication SC 0.1 mls HS KELLY Administration Levothyroxine Sodium 75 mcg 06/22/19 06:00 06/25/19 05:14 Synthroid PO 75 mcg 0600 KELLY Administration Metoprolol Tartrate 25 mg 06/22/19 09:00 06/25/19 10:32 Lopressor PO Not Given BID EKLLY Pantoprazole Sodium 40 mg 06/22/19 09:00 06/25/19 08:26 Protonix PO 40 mg DAILY KELLY Administration Polyethylene Glycol 17 gm 06/22/19 09:00 06/25/19 10:32 Miralax PO Not Given DAILY KELLY Sodium Chloride 10 ml 06/21/19 21:18 06/22/19 09:30 Flush - Normal Saline IVF 10 ml PRN PRN Administration Saline Flush - Exam General Appearance: awake alert ENT: normocephalic atraumatic Neck: supple Heart: RRR Respiratory: normal chest expansion, no tachypnea Gastrointestinal: soft Neurological: cranial nerve grossly intact, no focal deficits Psychiatric: A&O x 3 Hosp A/P (1) Acute and chronic respiratory failure with hypoxia Code(s): J96.21 - ACUTE AND CHRONIC RESPIRATORY FAILURE WITH HYPOXIA Status: Chronic (2) Acute on chronic diastolic ACC/AHA stage C congestive heart failure Code(s): I50.33 - ACUTE ON CHRONIC DIASTOLIC (CONGESTIVE) HEART FAILURE Status : Chronic (3) CAD (coronary artery disease) Code(s): I25.10 - ATHSCL HEART DISEASE OF [place] CORONARY ARTERY W/O ANG PCTRS Status: Chronic Qualifiers: Coronary Disease-Associated Artery/Lesion type: bypass graft [place] vs. transplanted heart: [place] heart Associated angina: without angina Qualified Code(s): I25.810 - Atherosclerosis of coronary artery bypass graft(s) without angina pectoris (4) Diabetes type 2, controlled Code(s): E11.9 - TYPE 2 DIABETES MELLITUS WITHOUT COMPLICATIONS Status: Chronic Qualifiers: Diabetes mellitus longterm insulin use: with longterm use Diabetes mellitus complication status: without complication Qualified Code(s): E11.9 - Type 2 diabetes mellitus without complications; Z79.4 - moth exterminator (current) use of insulin (5) HLD (hyperlipidemia) Code(s): E78.5 - HYPERLIPIDEMIA, UNSPECIFIED Status: Chronic Qualifiers: Hyperlipidemia type: pure hypercholesterolemia Qualified Code(s): E78.00 - Pure hypercholesterolemia, unspecified; E78.0 - Pure hypercholesterolemia (6) Hypothyroidism Code(s): E03.9 - HYPOTHYROIDISM, UNSPECIFIED Status: Chronic Qualifiers: Hypothyroidism type: unspecified Qualified Code(s): E03.9 - Hypothyroidism , unspecified (7) Atrial flutter Code(s): I48.92 - UNSPECIFIED ATRIAL FLUTTER Status: Resolved - Plan Negative fluid balance since admission. SOB and LE swelling are improving. Continue low salt diet and fluid restriction. Creatinine level increased to 1.9 today. Change Lasix to 40 mg orally. Echocardiogram showed preserved action fraction. Appreciate cardiology recommendations.
[2019-06-25] MEDS: Insulin Glargine 10 UNITS in Pre-Filled Syringe 1 EACH SC SCH (20:57)
[2019-06-26 04:38] LABS: Anion Gap 13 mmol/L (10-20); BUN (Urea Nitrogen) 50 mg/dL (9.8-20.1); Calc. Creatinine Clearance 28 mL/min (70-130); Carbon Dioxide 33 mmol/L (23-31); Chloride 96 mmol/L (98-107); Estimated GFR-MDRD 21; Glucose 174 mg/dL (83-110); Potassium 4.2 mmol/L (3.5-5.1); Sodium 138 mmol/L (136-145)
[2019-06-26 05:02] LABS: Band 3 % (5-11); Eosinophils 9 % (0-10); Hemoglobin 10.3 g/dL (12.0-16.0); Lymphocytes 9 % (21-51); MDiff Complete? YES; Mean Corpuscular HGB CONC 31.9 g/dL (32.0-36.0); Mean Corpuscular Hemoglobin 32.4 pg (27.0-31.0); Mean Platelet Volume 10.5 fL (7.4-10.4); Monocytes 9 % (0-10); Neutrophil 70 % (42-75); Platelet Count 89 thou/uL (130-400); Platelet Morphology Comment Appears Decreased; RBC Distribution Width 14.3 % (11.5-14.5); Red Blood Cell (RBC) Count 3.18 mill/uL (4.20-5.40); Tear Drops SLIGHT = 2-5 cells (100X) (0-1/hpf); White Blood Cell (WBC) Count 5.5 thou/uL (4.8-10.8)
[2019-06-26] MEDS: Levothyroxine Sodium 75 MCG TAB PO SCH (05:20)
[2019-06-26] MEDS ORDERED: Furosemide 40 MG TAB PO SCH (07:30)
[2019-06-26] MEDS: Dronedarone HCl 400 MG TAB PO SCH ×3 (07:33→17:50)
[2019-06-26] MEDS: Metoprolol Tartrate 25 MG TAB PO SCH (07:33)
[2019-06-26] MEDS: Allopurinol 100 MG TAB PO SCH ×2 (07:34→20:24)
[2019-06-26] MEDS: Polyethylene Glycol 3350 17 GM Packet PO SCH (07:34)
[2019-06-26] MEDS: Cyanocobalamin (Vitamin B-12) 1,000 MCG TAB PO SCH (07:34)
[2019-06-26] MEDS: Aspirin 81 mg Enteric Coated Tablet PO SCH (07:34)
--- NOTE | 2019-06-26 08:09 | PRG ---
DATE OF SERVICE: 06/26/2019 SUBJECTIVE: Ms. Pearson is doing well. She has developed a rash on her ankles. She said it was previously on the left leg, it is itchy. OBJECTIVE: VITAL SIGNS: Her blood pressure 126/53, earlier was 92/46; pulse 60. LUNGS: Clear. CARDIAC: Normal S1 and normal S2. ABDOMEN: Soft, nontender. EXTREMITIES: Moderate edema. PERTINENT LABORATORY DATA: Hemoglobin is 10.3. The potassium is 4.2, creatinine is 2.24 which is higher than before. ASSESSMENT: 1. Diastolic congestive heart failure. 2. Worsening renal function. 3. Diabetes. PLAN: 1. She has been changed to oral furosemide. 2. Really cannot give her additional diuretics now with worsening renal function. 3. Hold metoprolol, try to allow her blood pressure to come up try to better diurese and avoid bradycardia. Job ID: [id number]
--- NOTE | 2019-06-26 18:33 | PDOC.HOSPP ---
- Subjective Encounter Date: 06/26/19 Encounter Time: 09:00 Subjective: no overnight events. This morning, feeling well and at baseline breathing otto. Has no complaints. - Objective Vital Signs & Weight: Vital Signs (12 hours) Temp Pulse Resp BP Pulse Ox 06/26/19 14:55 98.4 F 64 18 101/48 L 95 06/26/19 07:35 98.4 F 61 20 126/53 L 93 L Weight Weight 207 lb I&O: 06/25/19 06/26/19 06/27/19 06:59 06:59 06:59 Intake Total 1060 1440 Output Total 1150 1750 700 Balance -90 -310 -700 Result Diagrams: 06/26/19 03:48 06/26/19 03:48 Additional Labs: Accuchecks 06/26/19 06/26/19 06/26/19 16:53 11:10 05:32 POC Glucose 165 H 192 H 152 H 06/26/19 06/25/19 00:25 20:26 POC Glucose 166 H 269 H Hospitalist ROS - Review of Systems Constitutional: denies: fever, chills, sweats, weakness, malaise, other Respiratory: denies: cough, dry, shortness of breath, hemoptysis, SOB with excertion, pleuritic pain, sputum, wheezing, other Cardiovascular: denies: chest pain, palpitations, orthopnea, paroxysmal noc. dyspnea, edema, light headedness, other Gastrointestinal: denies: nausea, vomiting, abdominal pain, diarrhea, constipation, melena, hematochezia, other - Medication Medications: Active Medications Generic Name Dose Route Start Last Admin Trade Name Freq PRN Reason Stop Dose Admin Albuterol/Ipratropium 3 ml 06/25/19 13:00 06/26/19 13:35 Duoneb NEB Not Given [id number] KELLY Allopurinol 100 mg 06/22/19 09:00 06/26/19 07:34 Zyloprim PO 100 mg BID KELLY Administration Alprazolam 0.5 mg 06/21/19 21:07 06/24/19 23:04 Xanax PO 0.5 mg HS PRN Administration Anxiety/Sleep/Spasm Aspirin 81 mg 06/22/19 09:00 06/26/19 07:34 Ecotrin PO 81 mg DAILY KELLY Administration Cyanocobalamin 1,000 mcg 06/22/19 09:00 06/26/19 07:34 Vitamin B-12 PO 1,000 mcg DAILY KELLY Administration Dronedarone 200 mg 06/22/19 17:00 06/26/19 17:50 Multaq PO 200 mg TID-WM KELLY Administration Furosemide 40 mg 06/26/19 07:30 06/26/19 07:34 Lasix PO 40 mg DAILY-AC KELLY Administration Insulin Glargine 10 units/ 0.1 mls @ 0 mls/hr 06/22/19 21:00 06/25/19 20:57 Miscellaneous Medication SC 0.1 mls HS KELLY Administration Levothyroxine Sodium 75 mcg 06/22/19 06:00 06/26/19 05:20 Synthroid PO 75 mcg 0600 KELLY Administration Pantoprazole Sodium 40 mg 06/22/19 09:00 06/26/19 07:34 Protonix PO 40 mg DAILY KELLY Administration Polyethylene Glycol 17 gm 06/22/19 09:00 06/26/19 07:34 Miralax PO Not Given DAILY KELLY Sodium Chloride 10 ml 06/21/19 21:18 06/22/19 09:30 Flush - Normal Saline IVF 10 ml PRN PRN Administration Saline Flush - Exam General Appearance: NAD, awake alert Respiratory: CTAB, no wheezes, no rales, no ronchi Gastrointestinal: soft, non-tender, non-distended, normal bowel sounds Extremities: 2+ LE edema Psychiatric: normal affect, normal behavior, A&O x 3 Hosp A/P - Plan #right heart failure -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
[2019-06-26] MEDS: Insulin Glargine 10 UNITS in Pre-Filled Syringe 1 EACH SC SCH (20:23)
[2019-06-26] MEDS: ALPRAZolam 0.25 MG TAB PO PRN (20:24)
[2019-06-27 04:57] LABS: Anion Gap 11 mmol/L (10-20); BUN (Urea Nitrogen) 53 mg/dL (9.8-20.1); Calc. Creatinine Clearance 32 mL/min (70-130); Calcium 9.4 mg/dL (7.8-10.44); Carbon Dioxide 35 mmol/L (23-31); Chloride 96 mmol/L (98-107); Estimated GFR-MDRD 25; Glucose 124 mg/dL (83-110); Potassium 3.7 mmol/L (3.5-5.1); Sodium 138 mmol/L (136-145)
[2019-06-27 04:58] LABS: Band 8 % (5-11); Eosinophils 12 % (0-10); Hemoglobin 10.9 g/dL (12.0-16.0); Lymphocytes 22 % (21-51); MDiff Complete? YES; Macrocytosis SLIGHT = 6-15 cells (100X) (0-5/hpf); Mean Corpuscular HGB CONC 31.2 g/dL (32.0-36.0); Mean Corpuscular Hemoglobin 31.5 pg (27.0-31.0); Monocytes 6 % (0-10); Neutrophil 52 % (42-75); Platelet Count 100 thou/uL (130-400); Platelet Morphology Comment Appears Decreased; RBC Distribution Width 14.4 % (11.5-14.5); Red Blood Cell (RBC) Count 3.45 mill/uL (4.20-5.40); White Blood Cell (WBC) Count 5.7 thou/uL (4.8-10.8)
[2019-06-27] MEDS: Levothyroxine Sodium 75 MCG TAB PO SCH (06:11)
[2019-06-27] MEDS: Dronedarone HCl 400 MG TAB PO SCH ×3 (07:23→17:29)
[2019-06-27] MEDS: Aspirin 81 mg Enteric Coated Tablet PO SCH (08:58)
[2019-06-27] MEDS: Cyanocobalamin (Vitamin B-12) 1,000 MCG TAB PO SCH (08:58)
[2019-06-27] MEDS: Allopurinol 100 MG TAB PO SCH ×2 (08:59→20:15)
[2019-06-27] MEDS: Polyethylene Glycol 3350 17 GM Packet PO SCH (09:04)
[2019-06-27] MEDS ORDERED: Polyethylene Glycol 3350 17 GM Packet PO PRN (10:03)
[2019-06-27] MEDS: Sodium Chloride 0.45% 1,000 ML IV SCH ×2 (11:34→12:12)
--- NOTE | 2019-06-27 12:56 | PRG ---
DATE OF SERVICE: 06/27/2019 SUBJECTIVE: Ms. Pearson is feeling somewhat better today. She has had a good urine output yesterday. She seems to be diuresing better. OBJECTIVE: VITAL SIGNS: Her blood pressure is 124/56 and pulse is 63. LUNGS: Clear. CARDIAC: Normal S1. Normal S2. ABDOMEN: Soft and nontender. EXTREMITIES: Moderate edema. I and O; she did put out -2 L yesterday. LABORATORY DATA: Her creatinine is somewhat better at 1.93, it was up to 2.24 yesterday. ASSESSMENT: 1. Diastolic heart failure, appears near euvolemic. 2. Renal failure, stable. GFR is 25. PLAN: The patient was taken off beta-blockers, seems to be diuresing better. There was some possibility of giving her intravenous fluid, but she wished to not do that. I told her it is reasonable to hold off and see how she is doing tomorrow with a kidney function. Dr. Mccormick will resume care tomorrow. It will be a very difficult situation if she gets a little volume depleted, her kidneys worsen, if she is volume overloaded, her heart failure worsens. For now, we will not give her fluid as per her wishes. Job ID: [id number]
--- NOTE | 2019-06-27 15:16 | PDOC.HOSPP ---
- Subjective Encounter Date: 06/27/19 Encounter Time: 10:00 Subjective: no overnight events. THis morning, continues to feel and breathe well. Has no complaints with exception of persistent lower extremity edema - Objective Vital Signs & Weight: Vital Signs (12 hours) Temp Pulse Resp BP Pulse Ox 06/27/19 11:42 97.9 F 63 18 124/56 L 96 06/27/19 07:16 98.1 F 63 18 134/61 95 06/27/19 03:17 97.8 F 61 18 114/56 L 96 Weight Weight 207 lb 4.8 oz I&O: 06/26/19 06/27/19 06/28/19 06:59 06:59 06:59 Intake Total 1440 240 Output Total 1750 2250 Balance -310 Result Diagrams: 06/27/19 03:57 06/27/19 03:57 Additional Labs: Accuchecks 06/27/19 06/27/19 06/26/19 10:27 06:00 20:14 POC Glucose 207 H 131 H 226 H 06/26/19 16:53 POC Glucose 165 H Hospitalist ROS - Review of Systems Constitutional: denies: fever, chills, sweats, weakness, malaise, other Respiratory: denies: cough, dry, shortness of breath, hemoptysis, SOB with excertion, pleuritic pain, sputum, wheezing, other Cardiovascular: denies: chest pain, palpitations, orthopnea, paroxysmal noc. dyspnea, edema, light headedness, other Gastrointestinal: denies: nausea, vomiting, abdominal pain, diarrhea, constipation, melena, hematochezia, other - Medication Medications: Active Medications Generic Name Dose Route Start Last Admin Trade Name Freq PRN Reason Stop Dose Admin Albuterol/Ipratropium 3 ml 06/25/19 13:00 06/27/19 13:23 Duoneb NEB Not Given [id number] KELLY Allopurinol 100 mg 06/22/19 09:00 06/27/19 08:59 Zyloprim PO 100 mg BID KELLY Administration Alprazolam 0.5 mg 06/21/19 21:07 06/24/19 23:04 Xanax PO 0.5 mg HS PRN Administration Anxiety/Sleep/Spasm Alprazolam 0.25 mg 06/21/19 21:07 06/26/19 20:24 Xanax PO 0.25 mg BIDPRN PRN Administration anxiety Aspirin 81 mg 06/22/19 09:00 06/27/19 08:58 Ecotrin PO 81 mg DAILY KELLY Administration Cyanocobalamin 1,000 mcg 06/22/19 09:00 06/27/19 08:58 Vitamin B-12 PO 1,000 mcg DAILY KELLY Administration Dronedarone 200 mg 06/22/19 17:00 06/27/19 11:30 Multaq PO 200 mg TID-WM KELLY Administration Furosemide 40 mg 06/26/19 07:30 06/26/19 07:34 Lasix PO 40 mg DAILY-AC KELLY Administration Insulin Glargine 10 units/ 0.1 mls @ 0 mls/hr 06/22/19 21:00 06/26/19 20:23 Miscellaneous Medication SC 0.1 mls HS KELLY Administration Sodium Chloride 1,000 mls @ 50 mls/hr 06/27/19 10:15 06/27/19 12:12 1/2 Normal Saline IV Not Given .Q20H KELLY Levothyroxine Sodium 75 mcg 06/22/19 06:00 06/27/19 06:11 Synthroid PO 75 mcg 0600 KELLY Administration Pantoprazole Sodium 40 mg 06/22/19 09:00 06/27/19 08:59 Protonix PO 40 mg DAILY KELLY Administration Sodium Chloride 10 ml 06/21/19 21:18 06/22/19 09:30 Flush - Normal Saline IVF 10 ml PRN PRN Administration Saline Flush - Exam General Appearance: NAD, awake alert Neck: no JVD Heart: RRR, no murmur, no gallops, no rubs Respiratory: CTAB, no wheezes, no rales, no ronchi Gastrointestinal: soft, non-tender, non-distended, normal bowel sounds Extremities: 2+ LE edema Extremities - other findings: unchanged; R > L, chronic Psychiatric: normal affect, normal behavior, A&O x 3 Hosp A/P - Plan #right heart failure -likely cor pulmonale due to group 3 pHTN -manage per cardiology; considering hypotensive episodes and CHRISTIANO on CKD, which may be due to reduced renal perfusion, caution with diuresis; holding lasix and metoprolol as per cardiology -explained to patient indication to reach a balance between proper organ perfusion and prevention of hypervolemia, wanted to start patient on gentle IVF with restriction 1.5L / 24hr, but patient refuses; defer to cardiology #CHRISTIANO on CKD #worsening contraction alkalosis -creatinine lower (06/26) expected DC: 06/26-
[2019-06-27] MEDS: ALPRAZolam 0.25 MG TAB PO PRN (20:15)
[2019-06-27] MEDS: Insulin Glargine 10 UNITS in Pre-Filled Syringe 1 EACH SC SCH (23:51)
[2019-06-28] MEDS: Levothyroxine Sodium 75 MCG TAB PO SCH (05:00)
[2019-06-28 05:42] LABS: Anion Gap 13 mmol/L (10-20); BUN (Urea Nitrogen) 46 mg/dL (9.8-20.1); Calc. Creatinine Clearance 38 mL/min (70-130); Calcium 9.2 mg/dL (7.8-10.44); Carbon Dioxide 32 mmol/L (23-31); Chloride 99 mmol/L (98-107); Estimated GFR-MDRD 30; Glucose 134 mg/dL (83-110); Potassium 3.7 mmol/L (3.5-5.1); Sodium 140 mmol/L (136-145)
[2019-06-28 06:17] LABS: Band 2 % (5-11); Eosinophils 21 % (0-10); Hemoglobin 10.4 g/dL (12.0-16.0); Lymphocytes 17 % (21-51); MDiff Complete? YES; Mean Corpuscular HGB CONC 32.5 g/dL (32.0-36.0); Mean Corpuscular Hemoglobin 32.9 pg (27.0-31.0); Monocytes 8 % (0-10); Neutrophil 51 % (42-75); Platelet Count 77 thou/uL (130-400); Platelet Morphology Comment Appears Decreased; RBC Distribution Width 14.2 % (11.5-14.5); Reactive Lymphocytes 1 % (0-10); Red Blood Cell (RBC) Count 3.16 mill/uL (4.20-5.40); White Blood Cell (WBC) Count 4.3 thou/uL (4.8-10.8)
[2019-06-28] MEDS: Dronedarone HCl 400 MG TAB PO SCH ×3 (07:08→16:39)
[2019-06-28] MEDS: Cyanocobalamin (Vitamin B-12) 1,000 MCG TAB PO SCH (08:00)
[2019-06-28] MEDS: Aspirin 81 mg Enteric Coated Tablet PO SCH (08:00)
[2019-06-28] MEDS: Allopurinol 100 MG TAB PO SCH ×2 (08:00→21:38)
[2019-06-28] MEDS ORDERED: Furosemide 40 MG/4 ML VIAL SLOW IVP SCH (08:15)
[2019-06-28] MEDS: Potassium Chloride 10 MEQ TAB PO SCH (08:41)
[2019-06-28] MEDS ORDERED: Albuterol Sulfate 1.25 MG/3 ML NEB NEB SCH (08:45)
--- NOTE | 2019-06-28 12:37 | PDOC.HOSPP ---
- Subjective Encounter Date: 06/28/19 Encounter Time: 08:00 Subjective: no overnight events. this morning, complains of worsening shortness of breath, sensation of increased heaviness in lower extremities, and not receiving her nightly insulin. otherwise no complaints - Objective Vital Signs & Weight: Vital Signs (12 hours) Temp Pulse Resp BP BP Pulse Ox 06/28/19 11:13 97.9 F 61 18 128/60 98 06/28/19 07:05 97.7 F 63 16 140/64 96 06/28/19 03:39 97.6 F 61 18 109/51 L 98 Weight Weight 206 lb 2 oz I&O: 06/27/19 06/28/19 06/29/19 06:59 06:59 06:59 Intake Total 240 1050 Output Total 2250 1250 Balance -2009 Result Diagrams: 06/28/19 05:05 06/28/19 05:05 Additional Labs: Accuchecks 06/28/19 06/28/19 06/27/19 10:43 05:46 20:28 POC Glucose 152 H 139 H 247 H 06/27/19 16:22 POC Glucose 110 Hospitalist ROS - Review of Systems Constitutional: denies: fever, chills, sweats, weakness, malaise, other Respiratory: reports: shortness of breath. denies: cough, dry, hemoptysis, SOB with excertion, pleuritic pain, sputum, wheezing, other Cardiovascular: denies: chest pain, palpitations, orthopnea, paroxysmal noc. dyspnea, edema, light headedness, other Gastrointestinal: denies: nausea, vomiting, abdominal pain, diarrhea, constipation, melena, hematochezia, other - Medication Medications: Active Medications Generic Name Dose Route Start Last Admin Trade Name Freq PRN Reason Stop Dose Admin Allopurinol 100 mg 06/22/19 09:00 06/28/19 08:00 Zyloprim PO 100 mg BID KELLY Administration Alprazolam 0.5 mg 06/21/19 21:07 06/24/19 23:04 Xanax PO 0.5 mg HS PRN Administration Anxiety/Sleep/Spasm Aspirin 81 mg 06/22/19 09:00 06/28/19 08:00 Ecotrin PO 81 mg DAILY KELLY Administration Cyanocobalamin 1,000 mcg 06/22/19 09:00 06/28/19 08:00 Vitamin B-12 PO 1,000 mcg DAILY KELLY Administration Dronedarone 200 mg 06/22/19 17:00 06/28/19 11:16 Multaq PO 200 mg TID-WM KELLY Administration Insulin Glargine 10 units/ 0.1 mls @ 0 mls/hr 06/22/19 21:00 06/27/19 23:51 Miscellaneous Medication SC Not Given HS KELLY Levothyroxine Sodium 75 mcg 06/22/19 06:00 06/28/19 05:00 Synthroid PO 75 mcg 0600 KELLY Administration Pantoprazole Sodium 40 mg 06/22/19 09:00 06/28/19 08:00 Protonix PO 40 mg DAILY KELLY Administration Potassium Chloride 10 meq 06/28/19 09:00 06/28/19 08:41 Klor-Con 10 PO 10 meq QAM KELLY Administration Sodium Chloride 10 ml 06/21/19 21:18 06/22/19 09:30 Flush - Normal Saline IVF 10 ml PRN PRN Administration Saline Flush - Exam General Appearance: NAD, awake alert Neck: no JVD Heart: RRR, no murmur, no gallops, no rubs Respiratory: CTAB, no ronchi Respiratory - other findings: mild bibasilar rales and wheezing Gastrointestinal: soft, non-tender, non-distended, normal bowel sounds Extremities: 2+ LE edema Extremities - other findings: unchanged Neurological: cranial nerve grossly intact, normal sensation to touch Psychiatric: A&O x 3 Hosp A/P - Plan #right heart failure -likely cor pulmonale due to group 3 pHTN -breathing and satting well on RA; mild bibasilar rales and wheezing, may be cardiogenic wheezing; patient denies using inhalers/nebulizers at home; breathing treatment, cardiology restarted lasix; #CHRISTIANO on CKD (resolved) #improving contraction alkalosis currently at baseline expected DC: pending cardiology clearance
[2019-06-28] MEDS: Furosemide 40 MG/4 ML VIAL SLOW IVP SCH (14:55)
[2019-06-28] MEDS: Albuterol Sulfate 1.25 MG/3 ML NEB NEB SCH ×2 (14:55→23:07)
[2019-06-28] MEDS: ALPRAZolam 0.5 MG TAB PO PRN (21:38)
[2019-06-28] MEDS: Insulin Glargine 10 UNITS in Pre-Filled Syringe 1 EACH SC SCH (21:39)
[2019-06-28] MEDS: Triamcinolone 0.1% Cream 15 GM TUBE TOP SCH (21:40)
[2019-06-28] MEDS ORDERED: diphenhydrAMINE 25 MG CAP PO PRN (22:41)
[2019-06-28] MEDS ORDERED: Polyethylene Glycol 3350 17 GM Packet PO SCH (22:45)
[2019-06-29 04:34] LABS: Anion Gap 15 mmol/L (10-20); BUN (Urea Nitrogen) 42 mg/dL (9.8-20.1); Calc. Creatinine Clearance 36 mL/min (70-130); Calcium 9.2 mg/dL (7.8-10.44); Carbon Dioxide 31 mmol/L (23-31); Chloride 98 mmol/L (98-107); Estimated GFR-MDRD 28; Glucose 177 mg/dL (83-110); Potassium 4.1 mmol/L (3.5-5.1); Sodium 140 mmol/L (136-145)
[2019-06-29 05:15] LABS: Band 5 % (5-11); Eosinophils 8 % (0-10); Hemoglobin 10.3 g/dL (12.0-16.0); Large Platelets SLIGHT; Lymphocytes 21 % (21-51); MDiff Complete? YES; Mean Corpuscular HGB CONC 32.7 g/dL (32.0-36.0); Mean Corpuscular Hemoglobin 32.9 pg (27.0-31.0); Mean Platelet Volume 11.6 fL (7.4-10.4); Monocytes 10 % (0-10); Neutrophil 56 % (42-75); Platelet Count 51 thou/uL (130-400); Platelet Morphology Comment Appears Decreased; RBC Distribution Width 14.2 % (11.5-14.5); Red Blood Cell (RBC) Count 3.14 mill/uL (4.20-5.40); White Blood Cell (WBC) Count 4.1 thou/uL (4.8-10.8)
[2019-06-29] MEDS: Levothyroxine Sodium 75 MCG TAB PO SCH (05:55)
[2019-06-29] MEDS: Furosemide 40 MG/4 ML VIAL SLOW IVP SCH ×2 (05:55→14:44)
[2019-06-29] MEDS: Dronedarone HCl 400 MG TAB PO SCH ×3 (07:07→16:59)
[2019-06-29] MEDS: Albuterol Sulfate 1.25 MG/3 ML NEB NEB SCH ×3 (07:12→23:10)
[2019-06-29] MEDS: Aspirin 81 mg Enteric Coated Tablet PO SCH (08:04)
[2019-06-29] MEDS: Allopurinol 100 MG TAB PO SCH ×2 (08:04→19:52)
[2019-06-29] MEDS: Potassium Chloride 10 MEQ TAB PO SCH (08:04)
[2019-06-29] MEDS: Cyanocobalamin (Vitamin B-12) 1,000 MCG TAB PO SCH (08:04)
[2019-06-29] MEDS: Triamcinolone 0.1% Cream 15 GM TUBE TOP SCH ×3 (08:05→19:52)
[2019-06-29] MEDS ORDERED: Polyethylene Glycol 3350 17 GM Packet PO SCH (09:00)
[2019-06-29] MEDS: Insulin Glargine 10 UNITS in Pre-Filled Syringe 1 EACH SC SCH (19:52)
[2019-06-29] MEDS: Polyethylene Glycol 3350 17 GM Packet PO SCH (19:52)
--- NOTE | 2019-06-29 23:23 | PDOC.HOSPP ---
- Subjective Encounter Date: 06/29/19 Encounter Time: 09:00 Subjective: no overnight events. This morning, feels well and has no complaints. Endorses improvement in lower extremity edema - Objective Vital Signs & Weight: Vital Signs (12 hours) Temp Pulse Resp BP Pulse Ox 06/29/19 19:40 98.1 F 67 16 128/60 93 L 06/29/19 15:23 97.5 F L 63 18 123/55 L 98 06/29/19 14:21 70 14 06/29/19 11:23 98 F 63 16 121/60 100 Weight Weight 201 lb 12.8 oz I&O: 06/28/19 06/29/19 06/30/19 06:59 06:59 06:59 Intake Total 1050 1080 480 Output Total 1250 2325 1300 Balance -200 -1245 -820 Result Diagrams: 06/29/19 03:51 06/29/19 03:51 Additional Labs: Accuchecks 06/29/19 06/29/19 06/29/19 20:49 16:55 10:57 POC Glucose 228 H 160 H 216 H 06/29/19 06:00 POC Glucose 151 H Hospitalist ROS - Review of Systems Constitutional: denies: fever, chills, sweats, weakness, malaise, other Respiratory: denies: cough, dry, shortness of breath, hemoptysis, SOB with excertion, pleuritic pain, sputum, wheezing, other Cardiovascular: denies: chest pain, palpitations, orthopnea, paroxysmal noc. dyspnea, edema, light headedness, other Gastrointestinal: denies: nausea, vomiting, abdominal pain, diarrhea, constipation, melena, hematochezia, other - Medication Medications: Active Medications Generic Name Dose Route Start Last Admin Trade Name Freq PRN Reason Stop Dose Admin Albuterol Sulfate 1.25 mg 06/28/19 15:00 06/29/19 23:10 Albuterol Sulfate NEB Not Given [id number] KELLY Allopurinol 100 mg 06/22/19 09:00 06/29/19 19:52 Zyloprim PO 100 mg BID KELLY Administration Alprazolam 0.5 mg 06/21/19 21:07 06/28/19 21:38 Xanax PO 0.5 mg HS PRN Administration Anxiety/Sleep/Spasm Aspirin 81 mg 06/22/19 09:00 06/29/19 08:04 Ecotrin PO 81 mg DAILY KELLY Administration Cyanocobalamin 1,000 mcg 06/22/19 09:00 06/29/19 08:04 Vitamin B-12 PO 1,000 mcg DAILY KELLY Administration Dronedarone 200 mg 06/22/19 17:00 06/29/19 16:59 Multaq PO 200 mg TID-WM KELLY Administration Furosemide 40 mg 06/28/19 14:00 06/29/19 14:44 Lasix SLOW IVP 40 mg 0600,1400 KELLY Administration Insulin Glargine 10 units/ 0.1 mls @ 0 mls/hr 06/22/19 21:00 06/29/19 19:52 Miscellaneous Medication SC 0.1 mls HS KELLY Administration Levothyroxine Sodium 75 mcg 06/22/19 06:00 06/29/19 05:55 Synthroid PO 75 mcg 0600 KELLY Administration Pantoprazole Sodium 40 mg 06/22/19 09:00 06/29/19 08:04 Protonix PO 40 mg DAILY KELLY Administration Polyethylene Glycol 17 gm 06/29/19 21:00 06/29/19 19:52 Miralax PO 17 gm HS KELLY Administration Potassium Chloride 10 meq 06/28/19 09:00 06/29/19 08:04 Klor-Con 10 PO 10 meq QAM KELLY Administration Sodium Chloride 10 ml 06/21/19 21:18 06/29/19 05:55 Flush - Normal Saline IVF 10 ml PRN PRN Administration Saline Flush Triamcinolone Acetonide 0 gm 06/28/19 21:00 06/29/19 19:52 Kenalog 0.1% Cream TOP 1 applic TID KELLY Administration - Exam General Appearance: NAD, awake alert Heart: RRR, no murmur, no gallops, no rubs, normal peripheral pulses Respiratory: no wheezes, no rales, no ronchi, normal chest expansion, no tachypnea, normal percussion Respiratory - other findings: bibiasilar velcro-like crackles likely due to restrictive lung disease Gastrointestinal: soft, non-tender, non-distended, normal bowel sounds Extremities: 2+ LE edema Extremities - other findings: improved Psychiatric: normal affect, normal behavior, A&O x 3 Hosp A/P - Plan #right heart failure -likely cor pulmonale due to group 3 pHTN -breathing and satting well on RA; -continue lasix per cardiology #CHRISTIANO on CKD (resolved) #improving contraction alkalosis currently at baseline expected DC: pending cardiology clearance
[2019-06-30] MEDS: ALPRAZolam 0.5 MG TAB PO PRN ×2 (00:31→21:06)
[2019-06-30 04:41] LABS: Anion Gap 13 mmol/L (10-20); BUN (Urea Nitrogen) 41 mg/dL (9.8-20.1); Calc. Creatinine Clearance 31 mL/min (70-130); Calcium 9.5 mg/dL (7.8-10.44); Carbon Dioxide 34 mmol/L (23-31); Chloride 98 mmol/L (98-107); Estimated GFR-MDRD 25; Glucose 132 mg/dL (83-110); Sodium 141 mmol/L (136-145)
[2019-06-30] MEDS: Furosemide 40 MG/4 ML VIAL SLOW IVP SCH ×2 (05:43→15:20)
[2019-06-30] MEDS: Levothyroxine Sodium 75 MCG TAB PO SCH (05:43)
[2019-06-30] MEDS: Albuterol Sulfate 1.25 MG/3 ML NEB NEB SCH ×3 (06:37→22:21)
[2019-06-30] MEDS: Allopurinol 100 MG TAB PO SCH ×2 (08:24→21:06)
[2019-06-30] MEDS: Dronedarone HCl 400 MG TAB PO SCH ×3 (08:24→17:36)
[2019-06-30] MEDS: Aspirin 81 mg Enteric Coated Tablet PO SCH (08:25)
[2019-06-30] MEDS: Potassium Chloride 10 MEQ TAB PO SCH (08:25)
[2019-06-30] MEDS: Cyanocobalamin (Vitamin B-12) 1,000 MCG TAB PO SCH (08:25)
[2019-06-30] MEDS: Triamcinolone 0.1% Cream 15 GM TUBE TOP SCH ×2 (08:26→15:19)
--- NOTE | 2019-06-30 13:57 | PDOC.HOSPP ---
- Subjective Encounter Date: 06/30/19 Encounter Time: 09:00 Subjective: no overnight events. feeling well and has no complaints with exception of shortness of breath on ambulation. Claims worse than baseline - Objective Vital Signs & Weight: Vital Signs (12 hours) Temp Pulse Resp BP BP Pulse Ox 06/30/19 12:17 98.2 F 62 16 134/56 L 93 L 06/30/19 08:29 66 18 114/52 L 93 L 06/30/19 08:15 93 L 06/30/19 06:37 61 20 94 L 06/30/19 06:36 92 L 06/30/19 03:46 97.3 F L 61 17 124/56 L 93 L Weight Weight 200 lb 4.8 oz I&O: 06/29/19 06/30/19 07/01/19 06:59 06:59 06:59 Intake Total 1080 720 Output Total 6951 0848 Balance -1245 -1980 Result Diagrams: 06/29/19 03:51 06/30/19 04:00 Additional Labs: Accuchecks 06/30/19 06/30/19 06/29/19 10:39 05:59 20:49 POC Glucose 228 H 156 H 228 H 06/29/19 16:55 POC Glucose 160 H Hospitalist ROS - Review of Systems Constitutional: denies: fever, chills, sweats, weakness, malaise, other ENT: denies: ear pain, ear discharge, nose pain, nose discharge, nose congestion , mouth pain, mouth swelling, throat pain, throat swelling, other Respiratory: reports: SOB with excertion. denies: cough, dry, shortness of breath, hemoptysis, pleuritic pain, sputum, wheezing, other Cardiovascular: denies: chest pain, palpitations, orthopnea, paroxysmal noc. dyspnea, edema, light headedness, other Gastrointestinal: denies: nausea, vomiting, abdominal pain, diarrhea, constipation, melena, hematochezia, other Genitourinary: denies: dysuria, frequency, incontinence, hematuria, retention, other - Medication Medications: Active Medications Generic Name Dose Route Start Last Admin Trade Name Freq PRN Reason Stop Dose Admin Albuterol Sulfate 1.25 mg 06/28/19 15:00 06/30/19 06:37 Albuterol Sulfate NEB 1.25 mg [id number] KELLY Administration Allopurinol 100 mg 06/22/19 09:00 06/30/19 08:24 Zyloprim PO 100 mg BID KELLY Administration Alprazolam 0.5 mg 06/21/19 21:07 06/30/19 00:31 Xanax PO 0.5 mg HS PRN Administration Anxiety/Sleep/Spasm Aspirin 81 mg 06/22/19 09:00 06/30/19 08:25 Ecotrin PO 81 mg DAILY KELLY Administration Cyanocobalamin 1,000 mcg 06/22/19 09:00 06/30/19 08:25 Vitamin B-12 PO 1,000 mcg DAILY KELLY Administration Dronedarone 200 mg 06/22/19 17:00 06/30/19 12:03 Multaq PO 200 mg TID-WM KELLY Administration Furosemide 40 mg 06/28/19 14:00 06/30/19 05:43 Lasix SLOW IVP 40 mg 0600,1400 KELLY Administration Insulin Glargine 10 units/ 0.1 mls @ 0 mls/hr 06/22/19 21:00 06/29/19 19:52 Miscellaneous Medication SC 0.1 mls HS KELLY Administration Levothyroxine Sodium 75 mcg 06/22/19 06:00 06/30/19 05:43 Synthroid PO 75 mcg 0600 KELLY Administration Pantoprazole Sodium 40 mg 06/22/19 09:00 06/30/19 08:24 Protonix PO 40 mg DAILY KELLY Administration Polyethylene Glycol 17 gm 06/29/19 21:00 06/29/19 19:52 Miralax PO 17 gm HS KELLY Administration Potassium Chloride 10 meq 06/28/19 09:00 06/30/19 08:25 Klor-Con 10 PO 10 meq QAM KELLY Administration Sodium Chloride 10 ml 06/21/19 21:18 06/29/19 05:55 Flush - Normal Saline IVF 10 ml PRN PRN Administration Saline Flush Triamcinolone Acetonide 0 gm 06/28/19 21:00 06/30/19 08:26 Kenalog 0.1% Cream TOP 1 applic TID KELLY Administration - Exam General Appearance: NAD, awake alert Neck: no JVD Heart: RRR Respiratory: CTAB, no wheezes, no rales, no ronchi Respiratory - other findings: velcro-like inpiratory rales in bases Gastrointestinal: soft, non-tender, non-distended, normal bowel sounds, no palpable masses, no hepatomegaly, no splenomegaly, no bruit Extremities: 1+ LE edema Extremities - other findings: improving Psychiatric: normal affect, normal behavior, A&O x 3 Hosp A/P - Plan #right heart failure -likely cor pulmonale due to group 3 pHTN -breathing and satting well on RA; -continue lasix per cardiology #CHRISTIANO on CKD (recurred) #contraction alkalosis Currently being diuresed as per cardiology; I/O grossly negative -may benefit from less aggressive diuresis considering no significant lung findings and lower extremity edema not bothering patient much; deferring to cardiology expected DC: pending cardiology clearance
[2019-06-30] MEDS: Insulin Glargine 10 UNITS in Pre-Filled Syringe 1 EACH SC SCH (21:06)
[2019-06-30] MEDS: Polyethylene Glycol 3350 17 GM Packet PO SCH (21:06)
[2019-07-01] MEDS: Triamcinolone 0.1% Cream 15 GM TUBE TOP SCH ×2 (02:15→08:07)
[2019-07-01 04:56] LABS: Anion Gap 16 mmol/L (10-20); BUN (Urea Nitrogen) 37 mg/dL (9.8-20.1); Calc. Creatinine Clearance 34 mL/min (70-130); Calcium 9.2 mg/dL (7.8-10.44); Carbon Dioxide 30 mmol/L (23-31); Chloride 99 mmol/L (98-107); Estimated GFR-MDRD 28; Glucose 128 mg/dL (83-110); Magnesium 1.9 mg/dL (1.6-2.6); Potassium 3.8 mmol/L (3.5-5.1); Sodium 141 mmol/L (136-145)
[2019-07-01] MEDS: Furosemide 40 MG/4 ML VIAL SLOW IVP SCH ×2 (05:32→13:52)
[2019-07-01] MEDS: Levothyroxine Sodium 75 MCG TAB PO SCH (05:32)
[2019-07-01] MEDS: Albuterol Sulfate 1.25 MG/3 ML NEB NEB SCH (06:37)
[2019-07-01] MEDS: Dronedarone HCl 400 MG TAB PO SCH ×3 (08:03→16:58)
[2019-07-01] MEDS: Allopurinol 100 MG TAB PO SCH ×2 (08:04→21:06)
[2019-07-01] MEDS: Aspirin 81 mg Enteric Coated Tablet PO SCH (08:04)
[2019-07-01] MEDS: Cyanocobalamin (Vitamin B-12) 1,000 MCG TAB PO SCH (08:04)
[2019-07-01] MEDS: Potassium Chloride 10 MEQ TAB PO SCH (08:06)
--- NOTE | 2019-07-01 12:21 | CON ---
DATE OF CONSULTATION: 07/01/2019 REASON FOR CONSULTATION: Wheezing. HISTORY OF PRESENT ILLNESS: This is an 83-year-old female, who is a patient of Dr. Castellon. She came to the hospital on 06/23/2019 with an increasing shortness of breath and lower extremity swelling. She has a history of a pulmonary embolism in the past, but also has valvular heart disease and coronary artery disease. She has been worked up for obstructive lung disease in the past, but has never been diagnosed with COPD or asthma, but does have some restrictive physiology from kyphoscoliosis and obesity. She tells me that Dr. Mccormick started her on nebulize medication and she does not like it. She begins to wheeze and get short of breath from that, she wants the medication to be stopped. PAST MEDICAL HISTORY: 1. Coronary artery disease. 2. Pulmonary embolism. 3. GI hemorrhage. 4. Hypothyroidism. 5. Chronic renal insufficiency. PAST SURGICAL HISTORY: 1. Cataract surgery. 2. Coronary bypass grafting surgery. 3. Mitral valve replacement x2. 4. Cholecystectomy. ALLERGIES: PENICILLIN, NITROFURANTOIN, XARELTO, ELIQUIS, ZOCOR, AND TALWIN. SOCIAL HISTORY: Nonsmoker. Does not consume alcohol. REVIEW OF SYSTEMS: Remarkable for leg edema. Otherwise negative. MEDICATIONS: Her outpatient medications included; 1. Multaq. 2. MiraLAX. 3. Coenzyme Q10. 4. Prevacid. 5. Vitamin B12. 6. Aspirin. 7. Allopurinol. 8. Xanax. 9. Synthroid. 10. Lantus insulin. 11. Lasix. 12. Lopressor. Inpatient medications include; 1. Albuterol. 2. Ipratropium. 3. Allopurinol. 4. Xanax. 5. Vitamin B12. 6. Benadryl. 7. Multaq. 8. Lasix. 9. Apresoline. 10. Synthroid. 11. Claritin. 12. Morphine. 13. Zofran. 14. Protonix. 15. Potassium chloride. 16. Promethazine. 17. Kenalog cream. PHYSICAL EXAMINATION: VITAL SIGNS: Temperature 97.3, pulse 65, respirations 20, O2 saturation 93% on 2 L, and blood pressure 133/61. GENERAL: She is a pleasant appearing female. She is 5 feet 5 inches and weighs 200 pounds. HEENT: Unremarkable. NECK: No adenopathy or JVD. LUNGS: No active wheezing or rhonchi at the time of my exam. CARDIOVASCULAR: S1 and S2. Regular with 2/6 systolic murmur. ABDOMEN: Soft, obese, nontender, and nondistended. EXTREMITIES: She has 3+ edema from her knees downward particularly notable in her feet and ankles. IMAGING DATA: A chest x-ray from 06/20 showed pulmonary edema and cardiomegaly. Minimal left pleural effusion. LABORATORY DATA: White blood cell count 4.1, hematocrit 31.6, and platelet count 51. Sodium 141, potassium 3.8, chloride 99, CO2 of 30, BUN 37, creatinine 1.7, and glucose 128. Her BNP level at time of admission was 618. ASSESSMENT: 1. Diastolic congestive heart failure. 2. Previous pulmonary embolism. 3. No history of obstructive lung disease by previous workup. 4. Severe tricuspid regurgitation. 5. Moderate pulmonic regurgitation. RECOMMENDATIONS: I would recommend discontinuing the bronchodilators and see how she does. Continue treatment for heart failure as you are doing. I will notify Dr. Baca of the patient's admission. Job ID: [id number]
[2019-07-01] MEDS ORDERED: Triamcinolone 0.1% Cream 15 GM TUBE TOP PRN (13:28)
[2019-07-01 13:37] VITALS: BMI 33.3
--- NOTE | 2019-07-01 16:50 | EKG ---
Test Reason : Blood Pressure : / mmHG Vent. Rate : 073 BPM Atrial Rate : 070 BPM P-R Int : 000 ms QRS Dur : 130 ms QT Int : 492 ms P-R-T Axes : 000 -77 099 degrees QTc Int : 542 ms AV sequential or dual chamber electronic pacemaker Confirmed by CRISTAL BENTON MD ([id number]), make up editor DONNY SORTO ([id number]) on 07/01/2019 4:49:36 PM Referred By: Confirmed By:CRISTAL BENTON MD
[2019-07-01] MEDS: ALPRAZolam 0.5 MG TAB PO PRN (21:06)
[2019-07-01] MEDS: Polyethylene Glycol 3350 17 GM Packet PO SCH (21:06)
[2019-07-01] MEDS: Insulin Glargine 10 UNITS in Pre-Filled Syringe 1 EACH SC SCH (21:06)
--- NOTE | 2019-07-01 22:16 | PDOC.HOSPP ---
- Subjective Encounter Date: 07/01/19 Encounter Time: 10:00 Subjective: no overnight events. This morning, has no complaints with exception of breathing treatment worsening her breathing and irritating throat. - Objective Vital Signs & Weight: Vital Signs (12 hours) Temp Pulse Resp BP Pulse Ox 07/01/19 17:41 97.9 F 60 20 148/60 H 95 07/01/19 11:35 98.9 F 62 17 145/59 H 92 L Weight Admit Weight 204 lb 11.2 oz Weight 200 lb 1.6 oz I&O: 06/30/19 07/01/19 07/02/19 06:59 06:59 06:59 Intake Total 720 830 640 Output Total 2700 1500 600 Balance -1979 - 40 Result Diagrams: 06/29/19 03:51 07/01/19 03:47 Additional Labs: Accuchecks 07/01/19 07/01/19 07/01/19 20:31 17:29 06:03 POC Glucose 205 H 186 H 136 H Hospitalist ROS - Review of Systems Constitutional: denies: fever, chills, sweats, weakness, malaise, other Respiratory: denies: cough, dry, shortness of breath, hemoptysis, SOB with excertion, pleuritic pain, sputum, wheezing, other Cardiovascular: denies: chest pain, palpitations, orthopnea, paroxysmal noc. dyspnea, edema, light headedness, other Gastrointestinal: denies: nausea, vomiting, abdominal pain, diarrhea, constipation, melena, hematochezia, other - Medication Medications: Active Medications Generic Name Dose Route Start Last Admin Trade Name Sha PRN Reason Stop Dose Admin Allopurinol 100 mg 06/22/19 09:00 07/01/19 21:06 Zyloprim PO 100 mg BID KELLY Administration Aspirin 81 mg 06/22/19 09:00 07/01/19 08:04 Ecotrin PO 81 mg DAILY KELLY Administration Cyanocobalamin 1,000 mcg 06/22/19 09:00 07/01/19 08:04 Vitamin B-12 PO 1,000 mcg DAILY KELLY Administration Dronedarone 200 mg 06/22/19 17:00 07/01/19 16:58 Multaq PO 200 mg TID-WM KELLY Administration Furosemide 40 mg 06/28/19 14:00 07/01/19 13:52 Lasix SLOW IVP 40 mg 0600,1400 KELLY Administration Insulin Glargine 10 units/ 0.1 mls @ 0 mls/hr 06/22/19 21:00 07/01/19 21:06 Miscellaneous Medication SC 0.1 mls HS KELLY Administration Levothyroxine Sodium 75 mcg 06/22/19 06:00 07/01/19 05:32 Synthroid PO 75 mcg 0600 KELLY Administration Pantoprazole Sodium 40 mg 06/22/19 09:00 07/01/19 08:05 Protonix PO 40 mg DAILY KELLY Administration Polyethylene Glycol 17 gm 06/29/19 21:00 07/01/19 21:06 Miralax PO 17 gm HS KELLY Administration Potassium Chloride 10 meq 06/28/19 09:00 07/01/19 08:06 Klor-Con 10 PO 10 meq QAM KELLY Administration Sodium Chloride 10 ml 06/21/19 21:18 07/01/19 13:53 Flush - Normal Saline IVF 10 ml PRN PRN Administration Saline Flush - Exam General Appearance: NAD, awake alert Neck: no JVD Heart: RRR, no murmur, no gallops Respiratory: CTAB, no wheezes, no rales, no ronchi Respiratory - other findings: velcro-like crackles unchanged Gastrointestinal: soft, non-tender, non-distended, normal bowel sounds Extremities: 1+ LE edema Extremities - other findings: improved Psychiatric: normal affect, normal behavior, A&O x 3 Hosp A/P - Plan #right heart failure -likely cor pulmonale due to group 3 pHTN -breathing and satting well on RA; -continue lasix per cardiology #CKD Currently being diuresed as per cardiology; I/O grossly negative -may benefit from less aggressive diuresis considering no significant lung findings and lower extremity edema not bothering patient much; deferring to cardiology expected DC: pending cardiology and pulmonology clearance
[2019-07-02] MEDS: Levothyroxine Sodium 75 MCG TAB PO SCH (05:54)
[2019-07-02] MEDS: Furosemide 40 MG/4 ML VIAL SLOW IVP SCH ×2 (05:54→14:49)
[2019-07-02] MEDS: Dronedarone HCl 400 MG TAB PO SCH ×2 (08:15→12:18)
[2019-07-02] MEDS: Aspirin 81 mg Enteric Coated Tablet PO SCH (08:15)
[2019-07-02] MEDS: Cyanocobalamin (Vitamin B-12) 1,000 MCG TAB PO SCH (08:16)
[2019-07-02] MEDS: Allopurinol 100 MG TAB PO SCH ×2 (08:16→20:50)
[2019-07-02] MEDS: Potassium Chloride 10 MEQ TAB PO SCH (08:16)
--- NOTE | 2019-07-02 09:53 | PRG ---
DATE OF SERVICE: 07/02/2019 SUBJECTIVE: The patient was seen on this morning. She is doing well. She says she is not having wheezing. OBJECTIVE: VITAL SIGNS: Temperature 97.7, pulse 58, respirations 16, O2 sat 97% on 2 L, and blood pressure 118/53. HEENT: Unremarkable. NECK: No JVD. LUNGS: Clear anteriorly. CARDIAC: S1 and S2, regular. ABDOMEN: Soft. EXTREMITIES: Trace edema. ASSESSMENT: 1. Respiratory irritation from albuterol, better since that was stopped. 2. Congestive heart failure-diastolic. PLAN: Avoid bronchodilators. Recall further assistance as needed. Job ID: [id number]
[2019-07-02] MEDS ORDERED: Metolazone 5 MG TAB PO SCH (14:15)
--- NOTE | 2019-07-02 19:20 | PDOC.HOSPP ---
- Subjective Encounter Date: 07/02/19 Encounter Time: 08:00 Subjective: no overnight events. This morning, feeling well and has no complaints except nasal congestion. - Objective Vital Signs & Weight: Vital Signs (12 hours) Temp Pulse Resp BP Pulse Ox 07/02/19 15:54 97.3 F L 62 113/56 L 93 L 07/02/19 11:38 63 20 125/53 L 96 07/02/19 08:28 97.7 F 58 L 16 118/53 L 97 07/02/19 08:20 97 Weight Admit Weight 204 lb 11.2 oz Weight 198 lb 1.6 oz I&O: 07/01/19 07/02/19 07/03/19 06:59 06:59 06:59 Intake Total 830 1240 Output Total 1500 900 Balance -670 340 Result Diagrams: 06/29/19 03:51 07/01/19 03:47 Additional Labs: Accuchecks 07/02/19 07/02/19 07/02/19 16:31 11:17 05:23 POC Glucose 189 H 157 H 112 H 07/01/19 20:31 POC Glucose 205 H Hospitalist ROS - Review of Systems Constitutional: denies: fever, chills, sweats, weakness, malaise, other ENT: reports: nose discharge, nose congestion Respiratory: reports: cough. denies: dry, shortness of breath, hemoptysis, SOB with excertion, pleuritic pain, sputum, wheezing, other Cardiovascular: denies: chest pain, palpitations, orthopnea, paroxysmal noc. dyspnea, edema, light headedness, other Gastrointestinal: denies: nausea, vomiting, abdominal pain, diarrhea, constipation, melena, hematochezia, other - Medication Medications: Active Medications Generic Name Dose Route Start Last Admin Trade Name Freq PRN Reason Stop Dose Admin Allopurinol 100 mg 06/22/19 09:00 07/02/19 08:16 Zyloprim PO 100 mg BID KELLY Administration Aspirin 81 mg 06/22/19 09:00 07/02/19 08:15 Ecotrin PO 81 mg DAILY KELLY Administration Cyanocobalamin 1,000 mcg 06/22/19 09:00 07/02/19 08:16 Vitamin B-12 PO 1,000 mcg DAILY KELLY Administration Furosemide 40 mg 06/28/19 14:00 07/02/19 14:49 Lasix SLOW IVP 40 mg 0600,1400 KELLY Administration Insulin Glargine 10 units/ 0.1 mls @ 0 mls/hr 06/22/19 21:00 07/01/19 21:06 Miscellaneous Medication SC 0.1 mls HS KELLY Administration Levothyroxine Sodium 75 mcg 06/22/19 06:00 07/02/19 05:54 Synthroid PO 75 mcg 0600 KELLY Administration Pantoprazole Sodium 40 mg 06/22/19 09:00 07/02/19 08:16 Protonix PO 40 mg DAILY KELLY Administration Polyethylene Glycol 17 gm 06/29/19 21:00 07/01/19 21:06 Miralax PO 17 gm HS KELLY Administration Potassium Chloride 10 meq 06/28/19 09:00 07/02/19 08:16 Klor-Con 10 PO 10 meq QAM KELLY Administration Sodium Chloride 10 ml 06/21/19 21:18 07/01/19 13:53 Flush - Normal Saline IVF 10 ml PRN PRN Administration Saline Flush - Exam General Appearance: NAD, awake alert Respiratory: CTAB, no rales, no ronchi, no tachypnea Respiratory - other findings: mild localized wheezing, may be due to mucus Gastrointestinal: soft, non-tender, non-distended, normal bowel sounds Extremities: 1+ LE edema Extremities - other findings: improved Psychiatric: normal affect, normal behavior, A&O x 3 Hosp A/P - Plan #right heart failure -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
[2019-07-02] MEDS ORDERED: Sodium Chloride 0.65% Nasal 44 ML BOT EA NARE PRN (19:57)
[2019-07-02] MEDS: Oxymetazoline HCl 0.05% (30 ML BOT) NS SCH (20:49)
[2019-07-02] MEDS: Amiodarone 200 MG TAB PO SCH (20:50)
[2019-07-02] MEDS: Loratadine 10 MG TAB PO PRN (20:50)
[2019-07-02] MEDS: ALPRAZolam 0.25 MG TAB PO PRN (20:50)
[2019-07-02] MEDS: Insulin Glargine 10 UNITS in Pre-Filled Syringe 1 EACH SC SCH (20:51)
[2019-07-02] MEDS: Polyethylene Glycol 3350 17 GM Packet PO SCH (20:51)
[2019-07-03] MEDS: Furosemide 40 MG/4 ML VIAL SLOW IVP SCH ×2 (05:40→14:01)
[2019-07-03] MEDS: Levothyroxine Sodium 75 MCG TAB PO SCH (05:40)
[2019-07-03] MEDS: Allopurinol 100 MG TAB PO SCH ×2 (08:15→20:17)
[2019-07-03] MEDS: Amiodarone 200 MG TAB PO SCH ×2 (08:16→20:17)
[2019-07-03] MEDS: Cyanocobalamin (Vitamin B-12) 1,000 MCG TAB PO SCH (08:16)
[2019-07-03] MEDS: Aspirin 81 mg Enteric Coated Tablet PO SCH (08:16)
[2019-07-03] MEDS: Potassium Chloride 10 MEQ TAB PO SCH (08:16)
[2019-07-03] MEDS: Oxymetazoline HCl 0.05% (30 ML BOT) NS SCH (08:21)
[2019-07-03 10:52] LABS: Anion Gap 14 mmol/L (10-20); BUN (Urea Nitrogen) 34 mg/dL (9.8-20.1); Calc. Creatinine Clearance 35 mL/min (70-130); Calcium 9.5 mg/dL (7.8-10.44); Carbon Dioxide 34 mmol/L (23-31); Chloride 97 mmol/L (98-107); Estimated GFR-MDRD 28; Glucose 168 mg/dL (83-110); Potassium 3.5 mmol/L (3.5-5.1); Sodium 141 mmol/L (136-145)
--- NOTE | 2019-07-03 20:07 | PDOC.HOSPP ---
- Subjective Encounter Date: 07/03/19 Encounter Time: 09:00 Subjective: no overnight events. this morning, feeling well, nasal saline facilitates nasal congestion. - Objective Vital Signs & Weight: Vital Signs (12 hours) Temp Pulse Resp BP Pulse Ox 07/03/19 19:55 95 07/03/19 15:48 97.9 F 61 18 105/52 L 94 L 07/03/19 14:02 131/56 L 07/03/19 11:29 97.6 F 62 18 132/58 L 97 07/03/19 10:46 94 L 07/03/19 08:30 94 L 07/03/19 08:07 98.0 F 63 18 111/53 L 94 L Weight Admit Weight 204 lb 11.2 oz Weight 200 lb 6.4 oz I&O: 07/02/19 07/03/19 07/04/19 06:59 06:59 06:59 Intake Total 1240 1110 680 Output Total 900 1765 2250 Balance 503 -016 -2247 Result Diagrams: 06/29/19 03:51 07/03/19 09:59 Additional Labs: Accuchecks 07/03/19 07/03/19 07/03/19 16:39 10:52 05:36 POC Glucose 174 H 190 H 132 H 07/02/19 20:45 POC Glucose 200 H Hospitalist ROS - Review of Systems Constitutional: denies: fever, chills, sweats, weakness, malaise, other Respiratory: denies: cough, dry, shortness of breath, hemoptysis, SOB with excertion, pleuritic pain, sputum, wheezing, other Cardiovascular: denies: chest pain, palpitations, orthopnea, paroxysmal noc. dyspnea, edema, light headedness, other Gastrointestinal: denies: nausea, vomiting, abdominal pain, diarrhea, constipation, melena, hematochezia, other Genitourinary: denies: dysuria, frequency, incontinence, hematuria, retention, other - Medication Medications: Active Medications Generic Name Dose Route Start Last Admin Trade Name Freq PRN Reason Stop Dose Admin Allopurinol 100 mg 06/22/19 09:00 07/03/19 08:15 Zyloprim PO 100 mg BID KELLY Administration Alprazolam 0.25 mg 06/28/19 08:45 07/02/19 20:50 Xanax PO 0.25 mg 0900,1600 PRN Administration anxiety Amiodarone HCl 400 mg 07/02/19 21:00 07/03/19 08:16 Cordarone PO 400 mg BID KELLY Administration Aspirin 81 mg 06/22/19 09:00 07/03/19 08:16 Ecotrin PO 81 mg DAILY KELLY Administration Cyanocobalamin 1,000 mcg 06/22/19 09:00 07/03/19 08:16 Vitamin B-12 PO 1,000 mcg DAILY KELLY Administration Furosemide 40 mg 06/28/19 14:00 07/03/19 14:01 Lasix SLOW IVP 40 mg 0600,1400 KELLY Administration Insulin Glargine 10 units/ 0.1 mls @ 0 mls/hr 06/22/19 21:00 07/02/19 20:51 Miscellaneous Medication SC 0.1 mls HS KELLY Administration Levothyroxine Sodium 75 mcg 06/22/19 06:00 07/03/19 05:40 Synthroid PO 75 mcg 0600 KELLY Administration Loratadine 10 mg 06/21/19 21:07 07/02/19 20:50 Claritin PO 10 mg DAILYPRN PRN Administration Sinus Symptoms Pantoprazole Sodium 40 mg 06/22/19 09:00 07/03/19 08:16 Protonix PO 40 mg DAILY KELLY Administration Polyethylene Glycol 17 gm 06/29/19 21:00 07/02/19 20:51 Miralax PO 17 gm HS KELLY Administration Potassium Chloride 10 meq 06/28/19 09:00 07/03/19 08:16 Klor-Con 10 PO 10 meq QAM KELLY Administration Sodium Chloride 10 ml 06/21/19 21:18 07/03/19 08:16 Flush - Normal Saline IVF 10 ml PRN PRN Administration Saline Flush Sodium Chloride 0 ml 07/02/19 19:57 07/03/19 08:20 [place] Nasal [place] 0.65% EA NARE 1 spr PRN PRN Administration Nasal Dryness - Exam General Appearance: NAD, awake alert Heart: RRR, no murmur, no gallops, no rubs, normal peripheral pulses Heart - other findings: paced on telemetry Respiratory: CTAB, no wheezes, no rales, no ronchi, normal chest expansion, no tachypnea, normal percussion Gastrointestinal: soft, non-tender, non-distended, normal bowel sounds, no palpable masses, no hepatomegaly, no splenomegaly, no bruit Extremities: 1+ LE edema Extremities - other findings: improving Psychiatric: normal affect, normal behavior, A&O x 3 Hosp A/P - Plan #right heart failure -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
[2019-07-03] MEDS: Loratadine 10 MG TAB PO PRN (20:17)
[2019-07-03] MEDS: Insulin Glargine 10 UNITS in Pre-Filled Syringe 1 EACH SC SCH (20:45)
[2019-07-03] MEDS: ALPRAZolam 0.25 MG TAB PO PRN (20:45)
[2019-07-03] MEDS: Polyethylene Glycol 3350 17 GM Packet PO SCH (20:51)
[2019-07-04] MEDS: Levothyroxine Sodium 75 MCG TAB PO SCH (05:36)
[2019-07-04] MEDS: Furosemide 40 MG/4 ML VIAL SLOW IVP SCH ×2 (05:36→14:28)
[2019-07-04] MEDS: Allopurinol 100 MG TAB PO SCH ×2 (08:53→20:56)
[2019-07-04] MEDS: Amiodarone 200 MG TAB PO SCH ×2 (08:53→20:56)
[2019-07-04] MEDS: Potassium Chloride 10 MEQ TAB PO SCH (08:53)
[2019-07-04] MEDS: Aspirin 81 mg Enteric Coated Tablet PO SCH (08:53)
[2019-07-04] MEDS: Cyanocobalamin (Vitamin B-12) 1,000 MCG TAB PO SCH (08:53)
--- NOTE | 2019-07-04 11:16 | PDOC.HOSPP ---
- Subjective Encounter Date: 07/04/19 Encounter Time: 09:00 Subjective: no overnight events. this morning feeling well and has no complaints. - Objective Vital Signs & Weight: Vital Signs (12 hours) Temp Pulse Resp BP Pulse Ox 07/04/19 07:48 96 07/04/19 07:30 97.9 F 64 14 122/53 L 95 07/04/19 03:24 97.8 F 69 18 117/58 L 96 Weight Admit Weight 204 lb 11.2 oz Weight 165 lb 11.2 oz I&O: 07/03/19 07/04/19 07/05/19 06:59 06:59 06:59 Intake Total 1110 1020 Output Total 8926 4665 Balance -681 -8113 Result Diagrams: 06/29/19 03:51 07/03/19 09:59 Additional Labs: Accuchecks 07/04/19 07/03/19 07/03/19 06:00 20:30 16:39 POC Glucose 135 H 240 H 174 H Hospitalist ROS - Review of Systems Constitutional: denies: fever, chills, sweats, weakness, malaise, other Respiratory: denies: cough, dry, shortness of breath, hemoptysis, SOB with excertion, pleuritic pain, sputum, wheezing, other Cardiovascular: denies: chest pain, palpitations, orthopnea, paroxysmal noc. dyspnea, edema, light headedness, other Gastrointestinal: denies: nausea, vomiting, abdominal pain, diarrhea, constipation, melena, hematochezia, other - Medication Medications: Active Medications Generic Name Dose Route Start Last Admin Trade Name Ericq PRN Reason Stop Dose Admin Allopurinol 100 mg 06/22/19 09:00 07/04/19 08:53 Zyloprim PO 100 mg BID KELLY Administration Alprazolam 0.25 mg 06/28/19 08:45 07/03/19 20:45 Xanax PO 0.25 mg 0900,1600 PRN Administration anxiety Amiodarone HCl 400 mg 07/02/19 21:00 07/04/19 08:53 Cordarone PO 400 mg BID KELLY Administration Aspirin 81 mg 06/22/19 09:00 07/04/19 08:53 Ecotrin PO 81 mg DAILY KELLY Administration Cyanocobalamin 1,000 mcg 06/22/19 09:00 07/04/19 08:53 Vitamin B-12 PO 1,000 mcg DAILY KELLY Administration Furosemide 40 mg 06/28/19 14:00 07/04/19 05:36 Lasix SLOW IVP 40 mg 0600,1400 KELLY Administration Insulin Glargine 10 units/ 0.1 mls @ 0 mls/hr 06/22/19 21:00 07/03/19 20:45 Miscellaneous Medication SC 0.1 mls HS KELLY Administration Levothyroxine Sodium 75 mcg 06/22/19 06:00 07/04/19 05:36 Synthroid PO 75 mcg 0600 KELLY Administration Loratadine 10 mg 06/21/19 21:07 07/03/19 20:17 Claritin PO 10 mg DAILYPRN PRN Administration Sinus Symptoms Pantoprazole Sodium 40 mg 06/22/19 09:00 07/04/19 08:53 Protonix PO 40 mg DAILY KELLY Administration Polyethylene Glycol 17 gm 06/29/19 21:00 07/03/19 20:51 Miralax PO 17 gm HS KELLY Administration Potassium Chloride 10 meq 06/28/19 09:00 07/04/19 08:53 Klor-Con 10 PO 10 meq QAM KELLY Administration Sodium Chloride 10 ml 06/21/19 21:18 07/03/19 08:16 Flush - Normal Saline IVF 10 ml PRN PRN Administration Saline Flush Sodium Chloride 0 ml 07/02/19 19:57 07/03/19 08:20 [place] Nasal [place] 0.65% EA NARE 1 spr PRN PRN Administration Nasal Dryness - Exam General Appearance: NAD, awake alert Heart: RRR, no murmur, no gallops, no rubs Respiratory: CTAB, no wheezes, no rales, no ronchi Gastrointestinal: soft, non-tender, non-distended, normal bowel sounds Extremities: no edema Psychiatric: normal affect, normal behavior, A&O x 3 Hosp A/P - Plan #right heart failure -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
[2019-07-04] MEDS ORDERED: Metolazone 5 MG TAB PO SCH (11:30)
[2019-07-04] MEDS ORDERED: Dextrose 5% in Water 1,000 ML IV PRN (11:55)
[2019-07-04] MEDS ORDERED: HumaLOG 300 UNITS/3 ML VIAL SC PRN (11:55)
[2019-07-04] MEDS ORDERED: Dextrose 50% Abboject 50 ML SYRINGE IVP PRN (11:55)
[2019-07-04] MEDS: Loratadine 10 MG TAB PO PRN (18:18)
[2019-07-04] MEDS: Polyethylene Glycol 3350 17 GM Packet PO SCH (20:56)
[2019-07-04] MEDS: Insulin Glargine 10 UNITS in Pre-Filled Syringe 1 EACH SC SCH (20:59)
[2019-07-04] MEDS: ALPRAZolam 0.25 MG TAB PO PRN (21:49)
[2019-07-05 05:15] LABS: Anion Gap 17 mmol/L (10-20); BUN (Urea Nitrogen) 40 mg/dL (9.8-20.1); Calc. Creatinine Clearance 30 mL/min (70-130); Calcium 9.1 mg/dL (7.8-10.44); Carbon Dioxide 31 mmol/L (23-31); Chloride 97 mmol/L (98-107); Estimated GFR-MDRD 31; Glucose 115 mg/dL (83-110); Potassium 4.2 mmol/L (3.5-5.1); Sodium 141 mmol/L (136-145)
[2019-07-05] MEDS: Furosemide 40 MG/4 ML VIAL SLOW IVP SCH ×2 (05:19→14:30)
[2019-07-05] MEDS: Levothyroxine Sodium 75 MCG TAB PO SCH (05:19)
[2019-07-05] MEDS: Aspirin 81 mg Enteric Coated Tablet PO SCH (08:40)
[2019-07-05] MEDS: Allopurinol 100 MG TAB PO SCH ×2 (08:40→20:31)
[2019-07-05] MEDS: Potassium Chloride 10 MEQ TAB PO SCH (08:40)
[2019-07-05] MEDS: Amiodarone 200 MG TAB PO SCH ×2 (08:41→20:31)
[2019-07-05] MEDS: Cyanocobalamin (Vitamin B-12) 1,000 MCG TAB PO SCH (08:41)
[2019-07-05] MEDS: Polyethylene Glycol 3350 17 GM Packet PO SCH (20:31)
[2019-07-05] MEDS: Insulin Glargine 10 UNITS in Pre-Filled Syringe 1 EACH SC SCH (20:31)
[2019-07-05] MEDS: ALPRAZolam 0.25 MG TAB PO PRN (22:04)
--- NOTE | 2019-07-05 22:54 | PDOC.HOSPP ---
- Objective Vital Signs & Weight: Vital Signs (12 hours) Temp Pulse Resp BP BP Pulse Ox 07/05/19 19:10 98 F 68 16 157/65 H 97 07/05/19 15:55 65 20 134/60 94 L 07/05/19 12:00 64 128/60 Weight Admit Weight 204 lb 11.2 oz Weight 161 lb 8 oz I&O: 07/04/19 07/05/19 07/06/19 06:59 06:59 06:59 Intake Total 1020 1110 675 Output Total 2572 2300 1400 Balance -1555 -1190 -725 Result Diagrams: 06/29/19 03:51 07/05/19 03:51 Additional Labs: Accuchecks 07/05/19 07/05/19 07/05/19 20:30 16:36 10:36 POC Glucose 165 H 228 H 181 H 07/05/19 05:37 POC Glucose 141 H Hospitalist ROS - Medication Medications: Active Medications Generic Name Dose Route Start Last Admin Trade Name Freq PRN Reason Stop Dose Admin Allopurinol 100 mg 06/22/19 09:00 07/05/19 20:31 Zyloprim PO 100 mg BID KELLY Administration Alprazolam 0.25 mg 06/28/19 08:45 07/05/19 22:04 Xanax PO 0.25 mg 0900,1600 PRN Administration anxiety Amiodarone HCl 400 mg 07/02/19 21:00 07/05/19 20:31 Cordarone PO 400 mg BID KELLY Administration Aspirin 81 mg 06/22/19 09:00 07/05/19 08:40 Ecotrin PO 81 mg DAILY KELLY Administration Cyanocobalamin 1,000 mcg 06/22/19 09:00 07/05/19 08:41 Vitamin B-12 PO 1,000 mcg DAILY KELLY Administration Insulin Glargine 10 units/ 0.1 mls @ 0 mls/hr 06/22/19 21:00 07/05/19 20:31 Miscellaneous Medication SC 0.1 mls HS KELLY Administration Levothyroxine Sodium 75 mcg 06/22/19 06:00 07/05/19 05:19 Synthroid PO 75 mcg 0600 KELLY Administration Loratadine 10 mg 06/21/19 21:07 07/04/19 18:18 Claritin PO 10 mg DAILYPRN PRN Administration Sinus Symptoms Pantoprazole Sodium 40 mg 06/22/19 09:00 07/05/19 08:41 Protonix PO 40 mg DAILY KELLY Administration Polyethylene Glycol 17 gm 06/29/19 21:00 07/05/19 20:31 Miralax PO 17 gm HS KELLY Administration Potassium Chloride 10 meq 06/28/19 09:00 07/05/19 08:40 Klor-Con 10 PO 10 meq QAM KELLY Administration Sodium Chloride 10 ml 06/21/19 21:18 07/05/19 20:32 Flush - Normal Saline IVF 10 ml PRN PRN Administration Saline Flush Sodium Chloride 0 ml 07/02/19 19:57 07/03/19 08:20 [place] Nasal [place] 0.65% EA NARE 1 spr PRN PRN Administration Nasal Dryness Hosp A/P - Plan #right heart failure -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
--- NOTE | 2019-07-05 23:07 | PDOC.HOSPP ---
- Subjective Encounter Date: 07/05/19 Encounter Time: 10:00 Subjective: no overnight events. This morning, feeling well and has no complaints. lower extremity edema improving. - Objective Vital Signs & Weight: Vital Signs (12 hours) Temp Pulse Resp BP BP Pulse Ox 07/05/19 19:10 98 F 68 16 157/65 H 97 07/05/19 15:55 65 20 134/60 94 L 07/05/19 12:00 64 128/60 Weight Admit Weight 204 lb 11.2 oz Weight 161 lb 8 oz I&O: 07/04/19 07/05/19 07/06/19 06:59 06:59 06:59 Intake Total 1020 1110 675 Output Total 2575 2300 1400 Balance -9045 -7440 -725 Result Diagrams: 06/29/19 03:51 07/05/19 03:51 Additional Labs: Accuchecks 07/05/19 07/05/19 07/05/19 20:30 16:36 10:36 POC Glucose 165 H 228 H 181 H 07/05/19 05:37 POC Glucose 141 H Hospitalist ROS - Review of Systems Constitutional: denies: fever, chills, sweats, weakness, malaise, other Respiratory: denies: cough, dry, shortness of breath, hemoptysis, SOB with excertion, pleuritic pain, sputum, wheezing, other Cardiovascular: denies: chest pain, palpitations, orthopnea, paroxysmal noc. dyspnea, edema, light headedness, other Gastrointestinal: denies: nausea, vomiting, abdominal pain, diarrhea, constipation, melena, hematochezia, other Genitourinary: denies: dysuria, frequency, incontinence, hematuria, retention, other - Medication Medications: Active Medications Generic Name Dose Route Start Last Admin Trade Name Freq PRN Reason Stop Dose Admin Allopurinol 100 mg 06/22/19 09:00 07/05/19 20:31 Zyloprim PO 100 mg BID KELLY Administration Alprazolam 0.25 mg 06/28/19 08:45 07/05/19 22:04 Xanax PO 0.25 mg 0900,1600 PRN Administration anxiety Amiodarone HCl 400 mg 07/02/19 21:00 07/05/19 20:31 Cordarone PO 400 mg BID KELLY Administration Aspirin 81 mg 06/22/19 09:00 07/05/19 08:40 Ecotrin PO 81 mg DAILY KELLY Administration Cyanocobalamin 1,000 mcg 06/22/19 09:00 07/05/19 08:41 Vitamin B-12 PO 1,000 mcg DAILY KELLY Administration Insulin Glargine 10 units/ 0.1 mls @ 0 mls/hr 06/22/19 21:00 07/05/19 20:31 Miscellaneous Medication SC 0.1 mls HS KELLY Administration Levothyroxine Sodium 75 mcg 06/22/19 06:00 07/05/19 05:19 Synthroid PO 75 mcg 0600 KELLY Administration Loratadine 10 mg 06/21/19 21:07 07/04/19 18:18 Claritin PO 10 mg DAILYPRN PRN Administration Sinus Symptoms Pantoprazole Sodium 40 mg 06/22/19 09:00 07/05/19 08:41 Protonix PO 40 mg DAILY KELLY Administration Polyethylene Glycol 17 gm 06/29/19 21:00 07/05/19 20:31 Miralax PO 17 gm HS KELLY Administration Potassium Chloride 10 meq 06/28/19 09:00 07/05/19 08:40 Klor-Con 10 PO 10 meq QAM KELLY Administration Sodium Chloride 10 ml 06/21/19 21:18 07/05/19 20:32 Flush - Normal Saline IVF 10 ml PRN PRN Administration Saline Flush Sodium Chloride 0 ml 07/02/19 19:57 07/03/19 08:20 [place] Nasal [place] 0.65% EA NARE 1 spr PRN PRN Administration Nasal Dryness - Exam General Appearance: NAD, awake alert Heart: RRR, no murmur, no gallops, no rubs, normal peripheral pulses Respiratory: CTAB, no wheezes, no rales, no ronchi, normal chest expansion, no tachypnea, normal percussion Gastrointestinal: soft, non-tender, non-distended, normal bowel sounds, no palpable masses, no hepatomegaly, no splenomegaly, no bruit Extremities: 1+ LE edema Psychiatric: normal affect, normal behavior, A&O x 3 Hosp A/P - Plan #right heart failure -likely cor pulmonale due to group 3 pHTN -breathing and satting well on 2L NC; -transitioned IV to PO lasix per cardiology #CKD (at baseline) Currently being diuresed as per cardiology expected DC: pending cardiology clearance
[2019-07-06] MEDS: Levothyroxine Sodium 75 MCG TAB PO SCH (05:04)
[2019-07-06 07:35] VITALS: BP 125/54; TEMP 97.3
[2019-07-06 08:52] LABS: Anion Gap 14 mmol/L (10-20); BUN (Urea Nitrogen) 36 mg/dL (9.8-20.1); Calc. Creatinine Clearance 29 mL/min (70-130); Carbon Dioxide 34 mmol/L (23-31); Chloride 95 mmol/L (98-107); Estimated GFR-MDRD 30; Glucose 191 mg/dL (83-110); Potassium 3.3 mmol/L (3.5-5.1); Sodium 140 mmol/L (136-145)
[2019-07-06] MEDS ORDERED: Furosemide 40 MG TAB PO SCH (09:00)
[2019-07-06] MEDS: Aspirin 81 mg Enteric Coated Tablet PO SCH (09:13)
[2019-07-06] MEDS: Cyanocobalamin (Vitamin B-12) 1,000 MCG TAB PO SCH (09:13)
[2019-07-06] MEDS: Potassium Chloride 10 MEQ TAB PO SCH (09:13)
[2019-07-06] MEDS: Amiodarone 200 MG TAB PO SCH (09:13)
[2019-07-06] MEDS: Allopurinol 100 MG TAB PO SCH (09:13)
--- NOTE | 2019-07-07 13:48 | DIS ---
DATE OF ADMISSION: 06/21/2019 DATE OF DISCHARGE: 07/06/2019 HOSPITAL COURSE: Ms. Pearson is an 83-year-old female, who has a medical history of CHF, presented from the [facility] for shortness of breath, lower extremity edema. The patient was diagnosed with right-sided heart failure and started on diuresis as well as oxygen. She promptly improved on 2 L of oxygen and progressively with diuresis. Echocardiogram was consistent with cor pulmonale due to restrictive lung disease. Cardiology was consulted and continued to diurese the patient. The patient also presented with CHRISTIANO, which improved with diuresis. A few days prior to discharge, the patient came complaining about intermittent shortness of breath. Per Cardiology, the patient's Multaq was discontinued and replaced with amiodarone. The patient tolerated amiodarone well for 2 days prior to discharge. She was discharged on 400 mg b.i.d., then 200 mg b.i.d., then 200 mg daily per Cardiology recommendations. DISCHARGE MEDICATIONS: New medications: 1. Amiodarone 400 mg b.i.d. for 2 weeks, then 200 mg b.i.d. for 2 weeks, then continue 200 mg daily. 2. Metolazone per Cardiology 2.5 mg daily p.r.n. edema. Continued medications: 1. Lansoprazole. 2. Synthroid. 3. MiraLAX. 4. Allopurinol. Discontinued medications: 1. Metoprolol tartrate. 2. Multaq. Job ID: [id number]
== END 2019-07-06 11:35 | disposition home health service (06) | DRG 291 ==
LOC: ERS 19:09 → 2NO 20:36
PROVIDERS: ADMIT Internal Medicine; ATTEND Internal Medicine
DX: I13.0 Hypertensive heart and chronic kidney disease with heart failure and stage 1 through stage 4 chronic kidney disease, or unspecified chronic kidney disease (principal); I50.33 Acute on chronic diastolic (congestive) heart failure; J96.21 Acute and chronic respiratory failure with hypoxia; N18.4 Chronic kidney disease, stage 4 (severe); I48.92 Unspecified atrial flutter; N17.9 Acute kidney failure, unspecified; E11.22 Type 2 diabetes mellitus with diabetic chronic kidney disease; D63.1 Anemia in chronic kidney disease; D50.9 Iron deficiency anemia, unspecified; E03.9 Hypothyroidism, unspecified; I25.10 Atherosclerotic heart disease of native coronary artery without angina pectoris; I42.9 Cardiomyopathy, unspecified; I48.91 Unspecified atrial fibrillation; J44.9 Chronic obstructive pulmonary disease, unspecified; E78.00 Pure hypercholesterolemia, unspecified; E78.5 Hyperlipidemia, unspecified; I07.1 Rheumatic tricuspid insufficiency; I50.810 Right heart failure, unspecified; I27.23 Pulmonary hypertension due to lung diseases and hypoxia; I27.81 Cor pulmonale (chronic); I37.1 Nonrheumatic pulmonary valve insufficiency; Z95.1 Presence of aortocoronary bypass graft; Z99.81 Dependence on supplemental oxygen; I25.2 Old myocardial infarction; Z95.2 Presence of prosthetic heart valve; Z90.49 Acquired absence of other specified parts of digestive tract; Z90.710 Acquired absence of both cervix and uterus; Z87.891 Personal history of nicotine dependence; Z88.1 Allergy status to other antibiotic agents; Z88.0 Allergy status to penicillin; Z88.5 Allergy status to narcotic agent; Z79.82 Long term (current) use of aspirin; Z86.711 Personal history of pulmonary embolism; Z79.899 Other long term (current) drug therapy
CPT/HCPCS: 36415; 36416; 80048; 83735; 84484; 85007; 85025; 85027; 93005; 93306; 93798; 94640; J1815; J1940; J7620

== ENCOUNTER 2019-07-07 23:56 | Inpatient (IN) | payer MEDICARE, OTHER ==
[2019-07-08 02:06] LABS: Troponin I 0.065 ng/mL (< 0.028)
[2019-07-08] MEDS ORDERED: Dextrose 5% in Water 1,000 ML IV PRN (04:10)
[2019-07-08] MEDS ORDERED: Dextrose 50% Abboject 50 ML SYRINGE SLOW IVP PRN (04:10)
[2019-07-08] MEDS ORDERED: HumaLOG 300 UNITS/3 ML VIAL SC PRN (04:10)
[2019-07-08 05:21] LABS: Troponin I 0.216 ng/mL (< 0.028)
--- NOTE | 2019-07-08 06:38 | HP ---
REASON FOR ADMISSION: Loss of consciousness. HISTORY OF PRESENT ILLNESS: This is an 83-year-old female patient, who was recently discharged from our hospital a couple of days ago. Today, she developed a presyncopal episode and was found to have multiple runs of ventricular tachycardia that resolved spontaneously and another in the ER, she received 1 g of calcium and then became bradycardic. She was given 0.5 mg of atropine. Her heart rate improved. She is known to have a pacemaker and pacemaker was noted not to be capturing. She did have intermittent spikes and bigeminy with multiple PVCs. She does not have a defibrillator. She was subsequently sent to our emergency room where she appeared to be stable and did not require much interventions. She is admitted to the CCU. She just had her pacemaker checked by [employer] and it seems that it is functioning correctly. The ER physician did talk to Dr. Mccormick, flight surgeon, who will see her in the morning. I did review her records and the patient was discharged from our hospital 2 days ago. She has been in and out of our hospital many times since December last year. I did review her previous admission and seems that she was admitted for congestive heart failure secondary to diastolic dysfunction and at some point, she was seen by Pulmonary for increasing shortness of breath and lower extremity swelling. PAST MEDICAL HISTORY: 1. Coronary artery disease. 2. PE. 3. GI bleed. 4. Hypothyroidism. 5. Chronic renal insufficiency. 6. Cataract surgery. 7. CABG. 8. Mitral valve replacement x2. 9. Cholecystectomy. 10. Atrial fibrillation. 11. Tricuspid regurgitation. 12. ? COPD. 13. Post bladder suspension. SOCIAL HISTORY: She is a former smoker. She does not drink alcohol. FAMILY HISTORY: Negative for heart disease. REVIEW OF SYSTEMS: All systems reviewed except the above-mentioned loss of consciousness, found to be negative. PHYSICAL EXAMINATION: GENERAL: She is awake, alert, oriented, does not appear in distress. VITAL SIGNS: Her blood pressure is 96/42, heart rate 70, saturating 94% on 2 L nasal cannula. HEENT: Head is nontraumatic, normocephalic. Pupils equal, reactive. Extraocular movements are intact. Nonicteric sclerae. Well injected conjunctivae. Oral mucosa normal. Nasal mucosa normal. NECK: Supple. No adenopathy. No murmur. Thyroid is palpable. Trachea is midline. No supraclavicular adenopathy. HEART: S1 and S2. Regular. No murmur. No gallop. No friction rubs. No displacement of PMI. LUNGS: Clear to auscultation bilaterally. No wheezes. No rhonchi. No crackles. ABDOMEN: Bowel sounds are positive. Nontender abdomen. No hepatosplenomegaly. EXTREMITIES: No lower extremity edema. No cyanosis. NEUROLOGIC: Cranial nerves 2 through 12 within normal limits. Normal motor function. Normal sensory function. Normal reflexes. LABORATORY DATA: Blood work shows WBC of 10.1; hemoglobin of 12.1, previous hemoglobin was 10.3; platelets of 150, her usual platelets are around 51. INR 1.1. Sodium 141; chloride 97; BUN 43; creatinine 2.1, 24 hours ago her creatinine was 1.63; glucose 214; calcium 14, previously 9; magnesium 1.9. Troponin 0.065. EKG shows multiple PVCs, bigeminy. Repeat EKG shows paced rhythm with prolonged AL segment as per my read. ASSESSMENT AND PLAN: This is an 83-year-old female patient who is being admitted for episodes of syncope, found to have nonsustained ventricular tachycardia as her pacemaker is suspected to not be functioning, but then checked by the [employer] specimen technician seems that it is functioning now. Unable to determine what exactly happens when she had her episodes. Currently, doing well in the unit. Her blood pressure is low, but maintaining without any intervention. Cardiology: The patient is in the CCU. We will continue cycling her cardiac enzymes. Continue with amiodarone. I will hold her Lasix and metolazone for now since her blood pressure is low. Cardiology was consulted through the emergency room, they will see her. Renal system, electrolytes: The patient had elevated calcium. She did receive IV calcium in the ER of the other facility from where she was transferred. We will recheck her electrolytes later on. In regard of her diabetes, we will have her on insulin sliding scale. For DVT prophylaxis, she will be on heparin subcutaneously. I did discuss with her the code status. Initially, she said she does not want to be intubated and at some point to the nurses, she said she does not want chest compression because she had CABG. It seems that the patient cannot fully make up her mind and for that reason, we will have her full code for now until her daughter comes and they make a firm decision on their wishes. Job ID: [id number]
--- NOTE | 2019-07-08 07:49 | PDOC.EVN ---
Event Note - Event Note Event Note: Inherited the patient this morning. Admitted for presyncope, symptomatic bradycardia that was not captured by pacemaker and vtach. On encounter, doing well and has no complaints including chest pain or shortness of breath. Euvolemic so holding lasix pending evaluation by Cardiology.
[2019-07-08 08:14] LABS: #Basophils 0.1 thou/uL (0.0-0.2); #Eosinphils 1.3 thou/uL (0.0-0.7); #Lymphocytes 1.5 thou/uL (1.20-3.40); #Monocytes 0.6 thou/uL (0.11-0.59); #Neutrophils 6.1 thou/uL (1.40-6.50); %Basophils 0.7 % (0.0-1.0); %Eosinophils 13.8 % (0.0-10.0); %Lymphocytes 15.4 % (21.0-51.0); %Monocytes 6.3 % (0.0-10.0); %Neutrophils 63.8 % (42.0-75.0); Hemoglobin 11.9 g/dL (12.0-16.0); Mean Corpuscular HGB CONC 31.8 g/dL (32.0-36.0); Mean Corpuscular Hemoglobin 31.6 pg (27.0-31.0); Mean Corpuscular Volume 99.3 fL (78.0-98.0); Mean Platelet Volume 9.4 fL (7.4-10.4); Platelet Count 135 thou/uL (130-400); RBC Distribution Width 14.5 % (11.5-14.5); Red Blood Cell (RBC) Count 3.78 mill/uL (4.20-5.40); White Blood Cell (WBC) Count 9.5 thou/uL (4.8-10.8)
[2019-07-08 08:32] LABS: Anion Gap 15 mmol/L (10-20); BUN (Urea Nitrogen) 45 mg/dL (9.8-20.1); Calc. Creatinine Clearance 25 mL/min (70-130); Carbon Dioxide 33 mmol/L (23-31); Chloride 98 mmol/L (98-107); Estimated GFR-MDRD 25; Glucose 165 mg/dL (83-110); Potassium 3.6 mmol/L (3.5-5.1); Sodium 142 mmol/L (136-145)
[2019-07-08] MEDS: Aspirin 81 mg Enteric Coated Tablet PO SCH (09:00)
[2019-07-08] MEDS: Heparin 5,000 UNITS/ML VIAL SC SCH ×2 (09:00→16:40)
[2019-07-08] MEDS: Cyanocobalamin (Vitamin B-12) 1,000 MCG TAB PO SCH (09:00)
[2019-07-08] MEDS ORDERED: Amiodarone 200 MG TAB PO SCH (09:00)
[2019-07-08 09:15] LABS: CKMB 1.8 ng/mL (0-6.6)
[2019-07-08 09:15] LABS: #Basophils 0.1 thou/uL (0.0-0.2); #Eosinphils 1.6 thou/uL (0.0-0.7); #Lymphocytes 1.5 thou/uL (1.20-3.40); #Monocytes 0.7 thou/uL (0.11-0.59); #Neutrophils 6.4 thou/uL (1.40-6.50); %Basophils 0.6 % (0.0-1.0); %Eosinophils 15.2 % (0.0-10.0); %Lymphocytes 14.8 % (21.0-51.0); %Monocytes 6.9 % (0.0-10.0); %Neutrophils 62.5 % (42.0-75.0); Hemoglobin 12.1 g/dL (12.0-16.0); Mean Platelet Volume 9.6 fL (7.4-10.4); Platelet Count 138 thou/uL (130-400); RBC Distribution Width 14.3 % (11.5-14.5); Red Blood Cell (RBC) Count 3.78 mill/uL (4.20-5.40); White Blood Cell (WBC) Count 10.2 thou/uL (4.8-10.8)
[2019-07-08] MEDS ORDERED: EPINEPHrine 1 MG/10 ML Abboject SYRINGE ONE (09:38)
[2019-07-08] MEDS: Allopurinol 100 MG TAB PO SCH ×2 (10:48→21:07)
[2019-07-08] MEDS: Levothyroxine Sodium 75 MCG TAB PO SCH (10:48)
[2019-07-08] MEDS: Sodium Chloride 0.65% Nasal 44 ML BOT EA NARE SCH ×2 (10:49→21:07)
--- NOTE | 2019-07-08 12:27 | CON ---
DATE OF CONSULTATION: HISTORY OF PRESENT ILLNESS: Valorie Pearson is an 83-year-old female, who sees Dr. Baca in our office. In fact, she was just recently discharged from the hospital. She presents now to the ER with several episodes of dizziness, syncope that she was going to pass out. Apparently, her heart rate was low when she arrived. Apparently, somewhere down the line, she was also found to have ventricular tachycardia, but heart rate low in the 20s. She was given calcium. She has a pacemaker inside. Dr. Mccormick is a sports director who is in the process of seeing. She also has congestive heart failure. This morning, she is awake, alert, and responsive. Her main problem is cough and nasal congestion. She says she uses saltwater, nasal spray to stop the congestion. Denies any wheezing, orthopnea, PND. PAST MEDICAL HISTORY: Diabetes, anemia, hypothyroidism, hypertension, coronary artery disease, cardiomyopathy, previous PE, previous AFib, previous COPD, and previous CHF. PAST SURGICAL HISTORY: Valve replacement, cataract, nasal surgery, adenoids, appendix, bypass, gallbladder, hysterectomy, oophorectomy, tonsils, bladder suspension, mitral valve, pacemaker. HOME MEDICATIONS: 1. Synthroid 75. 2. Insulin. 3. Amiodarone 200. 4. Allopurinol. ALLERGIES: NUMEROUS. PENICILLIN, PREDNISONE, XARELTO, ZOCOR, MYCINS. REVIEW OF SYSTEMS: Otherwise, negative. PHYSICAL EXAMINATION: GENERAL: She is in no distress. Awake, alert, and responsive. VITAL SIGNS: Blood pressure 90/50, pulse afebrile. CHEST: No wheezing or crackles. CARDIAC: Normal S1, S2. No gallops. ABDOMEN: No masses. DIAGNOSTIC STUDIES: Her chest x-ray did not show any acute infiltrates. Her lab showed white count 10,000, H and H 12 and 37, platelet count is normal. BUN and creatinine are elevated at 45 and 1.90. Troponin is slightly elevated. ASSESSMENT AND PLAN: Syncope secondary to cardiac arrhythmia, bradycardia, ventricular tachycardia, possibly sick sinus syndrome, status post pacemaker, azotemia, chronic cough, sinus. Await input from Cardiology. Pulmonary will follow nasal spray. Otherwise, she appears to be relatively stable. Consultation note, 70 minutes, 50% direct patient care. Job ID: [id number]
[2019-07-08] MEDS ORDERED: Amiodarone HCl 150 MG in Dextrose 5% in Water 100 ML IVPB SCH (16:00)
--- NOTE | 2019-07-08 16:17 | PDOC.EVN ---
Event Note - Event Note Event Note: During conversation with spiritual care, suddenly unresponsive, code blue called , hypotensive, Vtach for 2 minutes on tele, shock x 1 returned to sinus. Appears drowsy, HD stable. Pending electrolytes, trop, ekg; cardiology recommended changing from amiodarone 400 PO to amiodarone drip. NPO midnight for possible LHC.
[2019-07-08] MEDS: Amiodarone HCl 450 MG in Dextrose 5% in Water 250 ML IVPB SCH (16:20)
[2019-07-08] MEDS ORDERED: Ondansetron PF 4 MG/2 ML Vial IVP PRN (16:24)
[2019-07-08] MEDS: Morphine 2 MG/ML SYRINGE SLOW IVP PRN ×2 (16:37→17:06)
[2019-07-08 17:06] LABS: Anion Gap 19 mmol/L (10-20); BUN (Urea Nitrogen) 42 mg/dL (9.8-20.1); Calc. Creatinine Clearance 26 mL/min (70-130); Calcium 9.9 mg/dL (7.8-10.44); Carbon Dioxide 26 mmol/L (23-31); Chloride 99 mmol/L (98-107); Estimated GFR-MDRD 27; Glucose 211 mg/dL (83-110); Potassium 3.5 mmol/L (3.5-5.1); Sodium 140 mmol/L (136-145)
[2019-07-08 17:07] LABS: CKMB 1.6 ng/mL (0-6.6)
[2019-07-08] MEDS ORDERED: Morphine 2 MG/ML SYRINGE SLOW IVP SCH (17:15)
[2019-07-08] MEDS ORDERED: Heparin 10,000 UNITS/ 10 ML VIAL SLOW IVP SCH ×2 (17:45)
[2019-07-08] MEDS ORDERED: Heparin 25,000 units/D5W 500 ML IV SCH (17:45)
[2019-07-08] MEDS ORDERED: Communication Order-Pharmacy FS SCH (18:00)
[2019-07-08] MEDS ORDERED: Nitroglycerin 50 MG/250 ML BOT 250 ML ONE (18:00)
[2019-07-08 18:08] LABS: Prothrombin Time 13.5 sec (12.0-14.7)
[2019-07-08 18:09] LABS: PTT 20.1 SEC (22.9-36.1)
[2019-07-08] MEDS ORDERED: Nitroglycerin 50 MG/250 ML BOT 250 ML IVPB SCH (18:15)
[2019-07-08] MEDS ORDERED: Insulin Glargine 10 UNITS in Pre-Filled Syringe 1 EACH SC SCH (21:00)
[2019-07-09] MEDS: Morphine 2 MG/ML SYRINGE SLOW IVP PRN (00:47)
[2019-07-09 00:59] LABS: PTT 147.7 SEC (22.9-36.1)
--- NOTE | 2019-07-09 01:42 | CON ---
DATE OF CONSULTATION: HISTORY: Valorie Pearson is an 83-year-old white female with longstanding cardiac history that has been outlined previously. She recently was hospitalized with diastolic dysfunction and was increasingly diuresed using metolazone. She was just discharged the day before yesterday. Yesterday was her first full day at home, and since that she did very well and felt well all day until 9 or so at night when she started to feel bad, had near syncopal spell. She was taken to the hospital in [place], and had episode of torsades, and was transferred here for further evaluation. I was told that her pacemaker was not working. However, the rep from [employer] came in and checked the device and it was functioning properly. She just would have episodes of torsades. She had another episode here in the ICU and underwent cardioversion of that. She does complain of some mild chest discomfort. PHYSICAL EXAMINATION: VITAL SIGNS: Blood pressure 110/53, pulse 69. HEENT: PERRL. NECK: Supple. CHEST: Clear. CARDIAC: S1 and S2 normal without any S3 or S4. There is a 1/6 systolic murmur. ABDOMEN: Normal bowel sounds without tenderness or organomegaly. EXTREMITIES: No edema. NEUROLOGIC: Grossly intact. LABORATORY DATA: EKG reveals A-V pacing. Echocardiogram from June 24 revealed ejection fraction 50% to 55% with moderately enlarged right ventricle, pacing wire in the right ventricle, left atrial enlargement, normally functioning mitral bioprosthetic valve, severe tricuspid regurgitation, and moderate pulmonic regurgitation. Hemoglobin 12.1, hematocrit 37.8, white count 13349, platelets 138,000. INR 1.1. Sodium 140, potassium 3.5, chloride 99, carbon dioxide 26, BUN 42, creatinine 1.1. Troponin I 0.315. IMPRESSION: 1. 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 2. Recent admission for [id number] diastolic heart failure. 3. Chronic obstructive pulmonary disease, on home O2. 4. History of atrial tachycardia, atrial fibrillation, atrial flutter. Atrial tachycardia is the most common arrhythmia recently on her pacemaker. She did have increased episodes, increased duration the week prior to her last admission. 5. Chronic iron-deficiency anemia with multiple GI bleeds, multiple negative endoscopies. It was felt she is not an anticoagulation candidate. 6. Status post coronary artery bypass graft x3 in 2000. 7. Pulmonary embolism after coronary artery bypass graft in November 2000. 8. Placement coronary artery stents in the circumflex and right coronary artery after bypass grafts closed in April 2002. 9. Redo coronary artery bypass graft x1 (right coronary artery) and bioprosthetic mitral valve replacement in June 2001. 10. Redo bioprosthetic mitral valve replacement in June 2010 for severe bioprosthetic mitral stenosis. 11. Pacemaker placement. 12. Hypertension. 13. Hypercholesterolemia. 14. Diabetes. 15. Former smoker. 16. Hypothyroidism. 17. Chronic kidney disease. 18. Obesity. PLAN: I feel that her torsade is probably ischemically mediated. She will be started on intravenous heparin as well as intravenous nitroglycerin. Recommended she undergo cardiac catheterization. My guess would be that she probably is trying to close her right coronary artery graft. Risks of catheterization were discussed with the patient and family including , myocardial infarction, dye reaction , vascular injury, CVA, transfusion, limb loss, renal loss, etc. Also risk of intervention with PTCA and stent placement were discussed including , myocardial infarction, emergent CABG, restenosis, stent thrombosis, vessel perforation, etc. We also discussed that this 18- year-old bypass graft may be too diseased to salvage. I am also quite concerned about her elevated creatinine with her undergoing cardiac catheterization. With her repeated GI bleeds in the past, I would only place a bare-metal stent to limit the amount of time that she would need to be placed on Plavix. Job ID: [id number] MTDD
[2019-07-09] MEDS: Amiodarone HCl 450 MG in Dextrose 5% in Water 250 ML IVPB SCH (02:13)
[2019-07-09 03:36] LABS: Anion Gap 15 mmol/L (10-20); BUN (Urea Nitrogen) 42 mg/dL (9.8-20.1); Calc. Creatinine Clearance 27 mL/min (70-130); Calcium 9.4 mg/dL (7.8-10.44); Carbon Dioxide 32 mmol/L (23-31); Chloride 98 mmol/L (98-107); Estimated GFR-MDRD 28; Glucose 227 mg/dL (83-110); Potassium 3.5 mmol/L (3.5-5.1); Sodium 141 mmol/L (136-145)
[2019-07-09 04:00] LABS: Hemoglobin 11.5 g/dL (12.0-16.0); Mean Corpuscular HGB CONC 31.2 g/dL (32.0-36.0); Mean Corpuscular Hemoglobin 31.7 pg (27.0-31.0); Mean Platelet Volume 9.1 fL (7.4-10.4); Platelet Count 130 thou/uL (130-400); RBC Distribution Width 14.5 % (11.5-14.5); Red Blood Cell (RBC) Count 3.63 mill/uL (4.20-5.40); White Blood Cell (WBC) Count 10.2 thou/uL (4.8-10.8)
[2019-07-09 04:01] LABS: Band 8 % (5-11); Eosinophils 2 % (0-10); Lymphocytes 4 % (21-51); MDiff Complete? YES; Monocytes 2 % (0-10); Myelocyte 2 % (0-0); Neutrophil 82 % (42-75)
[2019-07-09] MEDS ORDERED: Sodium Chloride 0.9% 1,000 ML IV SCH (06:00)
[2019-07-09 07:12] LABS: Troponin I 0.112 ng/mL (< 0.028)
[2019-07-09] MEDS ORDERED: Ondansetron PF 4 MG/2 ML Vial ONE (07:14)
[2019-07-09] MEDS ORDERED: Heparin 10,000 UNITS/1 ML VIAL ONE (07:16)
--- NOTE | 2019-07-09 07:37 | PDOC.HOSPP ---
- Subjective Encounter Date: 07/09/19 Encounter Time: 07:00 Subjective: No overnight events. This morning, 3 short episodes of vtach then 4th episodes of longer PVT, shocked x 1 returned to AV paced. Pending LHC and EP eval - Objective Vital Signs & Weight: Vital Signs (12 hours) Temp Pulse Ox 07/09/19 07:10 96 07/09/19 04:00 97.6 F 07/09/19 00:00 97.8 F 07/08/19 20:00 97.7 F 93 L Weight Weight 157 lb 3.033 oz Most Recent Monitor Data Heart Rate from ECG 64 NIBP 122/58 NIBP BP-Mean 79 Respiration from ECG 21 SpO2 94 I&O: 07/08/19 07/09/19 07/10/19 06:59 06:59 06:59 Intake Total 0 1086 Output Total 20 750 Balance -20 336 Result Diagrams: 07/10/19 04:01 07/10/19 04:01 Additional Labs: Accuchecks 07/09/19 07/08/19 07/08/19 05:47 21:04 18:12 POC Glucose 214 H 258 H 272 H 07/08/19 07/08/19 14:08 06:05 POC Glucose 165 H 185 H Hospitalist ROS - Review of Systems ROS unobtainable: due to mental status - Medication Medications: Active Medications Generic Name Dose Route Start Last Admin Trade Name Freq PRN Reason Stop Dose Admin Allopurinol 100 mg 07/08/19 09:00 07/08/19 21:07 Zyloprim PO 100 mg BID KELLY Administration Aspirin 81 mg 07/08/19 09:00 07/08/19 09:00 Ecotrin PO Not Given DAILY KELLY Cyanocobalamin 1,000 mcg 07/08/19 09:00 07/08/19 09:00 Vitamin B-12 PO Not Given DAILY KELLY Heparin Sodium (Porcine) 0 units 07/08/19 17:45 07/08/19 17:54 Heparin 1,000 Units/Ml (10 Ml) SLOW IVP 5,000 units WILLCALL KELLY Administration Amiodarone HCl 450 mg/ 259 mls @ 0 mls/hr 07/08/19 16:00 07/09/19 02:13 Miscellaneous Medication 1 IVPB 259 mls each/ Dextrose/Water INF KELLY Administration Protocol As Directed Heparin Sodium/Dextrose 500 mls @ 0 mls/hr 07/08/19 17:45 07/08/19 17:54 Heparin 25,000 Units/D5w IV 500 mls INF KELLY Administration Protocol As Directed Sodium Chloride 1,000 mls @ 100 mls/hr 07/09/19 06:00 07/09/19 06:03 Normal Saline 0.9% IV 1,000 mls .Q10H KELLY Administration Levothyroxine Sodium 75 mcg 07/08/19 09:00 07/08/19 10:48 Synthroid PO 75 mcg DAILY KELLY Administration Morphine Sulfate 2 mg 07/08/19 16:24 07/09/19 00:47 Morphine SLOW IVP 2 mg Q4H PRN Administration Chest Pain Sodium Chloride 1 ml 07/08/19 15:00 07/08/19 21:07 [place] Nasal [place] 0.65% EA NARE Not Given TID KELLY - Exam General Appearance: ill appearing Heart: irregular Psychiatric - other findings: alert, oriented, in distress s/p cardioversion Hosp A/P - Plan #PVT #symptomatic bradycardia #CAD s/p CABG, circumflex and RCA stent -multiple episodes since admission -recently discharged after transitioning from multaq to amiodarone; though less common among class III antiarrhthmics, amiodarone can precipitate QTc- prolonging arrhythmias including PVT; during previous inpatient stay, had no vtach episodes over more than a week of telemetry monitoring; -per cardiology likely ischemia mediated -reported allergy to simvastatin; currently on aspirin, heparin drip -pending [facility] -keep K > 4, Mg > 2 -avoid qt prolonging medications; defer decision regarding amiodarone to cardiology, EP -rest of management as per cardiology #pHTN group 3 #cor pulmonale -Echo showing severe tricusp regurg, moderate pulmonic regurg, EF 50-55%; due to restrictive lung disease and chronic hypoxia -currently euvolemic #hypothyroidism -currently on levothyroxine 75mcg; unlikely etiology of PVT; TSH in critically ill may not represent thyroid function -continue levothyroxine 75mcg Code status: CPR only DVT PPx: on therapeutic heparin GI PPx:
[2019-07-09] MEDS ORDERED: Protamine Sulfate 50 MG/5 ML VIAL ONE (07:42)
[2019-07-09] MEDS ORDERED: Lidocaine 2 gm/D5W 500 ml 0 ML ONE (08:08)
[2019-07-09] MEDS ORDERED: Lidocaine 2% PF 100 mg/5 ml Syringe ONE (08:08)
[2019-07-09] MEDS ORDERED: Lidocaine 2 gm/D5W 500 ml 500 ML ONE (08:20)
[2019-07-09] MEDS ORDERED: Acetaminophen/Codeine 30-300mg Tablet PO PRN (08:21)
[2019-07-09] MEDS ORDERED: Nitroglycerin 0.4 MG TAB (25 Tab Bottle) SL PRN (08:21)
[2019-07-09] MEDS ORDERED: Sodium Chloride 0.9% 200 ML IV PRN (08:21)
[2019-07-09] MEDS ORDERED: Nitroglycerin 50 MG/250 ML BOT 250 ML IVPB SCH (08:27)
[2019-07-09] MEDS ORDERED: Lidocaine 2% PF 100 mg/5 ml Syringe IVP SCH (08:30)
[2019-07-09] MEDS ORDERED: Iopamidol 370 76% 100 ML VIAL ONE (09:24)
[2019-07-09] MEDS: Levothyroxine Sodium 75 MCG TAB PO SCH (10:33)
[2019-07-09] MEDS: Allopurinol 100 MG TAB PO SCH ×2 (10:33→19:26)
[2019-07-09] MEDS: Furosemide 20 MG TAB PO SCH ×2 (10:34→14:22)
[2019-07-09] MEDS: Aspirin 81 mg Enteric Coated Tablet PO SCH (10:34)
[2019-07-09] MEDS: Cyanocobalamin (Vitamin B-12) 1,000 MCG TAB PO SCH (10:36)
[2019-07-09] MEDS: Sodium Chloride 0.65% Nasal 44 ML BOT EA NARE SCH ×3 (10:43→21:23)
[2019-07-09] MEDS ORDERED: Potassium Chloride 20 MEQ TAB PO SCH (13:45)
--- NOTE | 2019-07-09 15:33 | EKG ---
Test Reason : Blood Pressure : / mmHG Vent. Rate : 085 BPM Atrial Rate : 085 BPM P-R Int : 114 ms QRS Dur : 160 ms QT Int : 452 ms P-R-T Axes : 000 -12 165 degrees QTc Int : 537 ms [employer] pacemaker; interpretation is based on intrinsic rhythm Sinus rhythm with Fusion complexes with junctional escape complexes Left bundle branch block Abnormal ECG Confirmed by ARTI BELTRE M.D. ([id number]), editor book DONNY SORTO ([id number]) on 07/09/2019 3:32:48 PM Referred By: Confirmed By:ARTI BELTRE M.D.
--- NOTE | 2019-07-09 21:49 | PRG ---
DATE OF SERVICE: 07/09/2019 SUBJECTIVE: Ms. Pearson' events have been reviewed. Fortunately, she is stable. She apparently has not had any recent ventricular tachycardia. OBJECTIVE: VITAL SIGNS: Heart rate is 80, blood pressure 108/59, and respiratory rates in the teens. LUNGS: Clear. HEART: Regular rhythm. ABDOMEN: Soft. EXTREMITIES: Without asymmetry. LABORATORY DATA: White count 10.2, hemoglobin 11.5, and platelets 130. Sodium 141, potassium 3.5, chloride 98, bicarb 32, BUN 43, and creatinine 1.73, that is 1.9 on admission. IMPRESSION: Recurrent ventricular tachycardia. Per my discussion with Dr. Cruz, felt to be in part due to amiodarone. PLAN: The goal is to continue with current management. Try to keep potassium above 4. We will continue to follow. She is medically stable. Job ID: [id number]
[2019-07-10] MEDS: Lidocaine 2 gm/D5W 500 ml 500 ML IVPB SCH (01:49)
[2019-07-10] MEDS: Morphine 2 MG/ML SYRINGE SLOW IVP PRN (01:57)
[2019-07-10 04:20] LABS: #Eosinphils 0.3 thou/uL (0.0-0.7); #Lymphocytes 0.9 thou/uL (1.20-3.40); #Monocytes 0.7 thou/uL (0.11-0.59); #Neutrophils 9.1 thou/uL (1.40-6.50); %Basophils 0.2 % (0.0-1.0); %Eosinophils 2.7 % (0.0-10.0); %Lymphocytes 8.1 % (21.0-51.0); %Monocytes 6.5 % (0.0-10.0); %Neutrophils 82.6 % (42.0-75.0); Hemoglobin 12.1 g/dL (12.0-16.0); Mean Corpuscular Hemoglobin 31.3 pg (27.0-31.0); Mean Platelet Volume 9.3 fL (7.4-10.4); Platelet Count 121 thou/uL (130-400); RBC Distribution Width 14.7 % (11.5-14.5); Red Blood Cell (RBC) Count 3.86 mill/uL (4.20-5.40)
[2019-07-10 04:43] LABS: ALT (SGPT) 8 U/L (8-55); AST (SGOT) 19 U/L (5-34); Alkaline Phosphatase 119 U/L (40-110); Anion Gap 15 mmol/L (10-20); BUN (Urea Nitrogen) 42 mg/dL (9.8-20.1); Bilirubin, Total 0.8 mg/dL (0.2-1.2); Calc. Creatinine Clearance 30 mL/min (70-130); Calcium 9.1 mg/dL (7.8-10.44); Carbon Dioxide 27 mmol/L (23-31); Chloride 100 mmol/L (98-107); Estimated GFR-MDRD 32; Globulin 2.7 g/dL (2.4-3.5); Glucose 204 mg/dL (83-110); Magnesium 2.1 mg/dL (1.6-2.6); Potassium 3.9 mmol/L (3.5-5.1); Protein, Total 6.7 g/dL (6.0-8.3); Sodium 138 mmol/L (136-145)
[2019-07-10] MEDS: Ondansetron PF 4 MG/2 ML Vial SLOW IVP PRN (04:45)
--- NOTE | 2019-07-10 06:59 | CON ---
DATE OF CONSULTATION: 07/09/2019 HISTORY OF PRESENT ILLNESS: I am seeing Ms. 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 Prolonged QT related torsade like arrhythmia associated with syncopal spells and multiple defibrillations. a. Concomitant amiodarone use. b. Borderline potassium levels. 2. Paroxysmal atrial fibrillation/atrial flutter, on chronic antiarrhythmic suppression. 3. History of sick sinus syndrome, status post dual-chamber pacemaker implantation in February 2018 with a Medtronic [place] XT VR device. 4. History of coronary artery disease with prior bypass surgery. a. Left heart catheterization today reveals 90% left main and three-vessel coronary artery disease, but 2/2 bypass grafts are patent. b. Previously preserved LVEF by echo on 06/25/2019 at 50% to 55%, severe TR, moderate pulmonic regurgitation, moderate RV enlargement, adequate bioprosthetic valve function and mitral position. 5. History of CABG and mitral valve replacement in 2001 and then redo bioprosthetic mitral valve replacement in June 2010 and severe prosthetic mitral stenosis. 6. Diabetes. 7. Chronic kidney disease. 8. Elevated BMI. 9. Prior smoking. 10. History of hypertension. ALLERGIES: NITROFURANTOIN, PENICILLIN V, PENTAZOCINE. MEDICATIONS: At home included, 1. Coenzyme Q10. 2. Prevacid. 3. Synthroid. 4. MiraLAX. 5. Zyloprim. 6. Vitamin B12. 7. Aspirin. 8. Xanax. 9. Lantus insulin. 10. Cordarone 200 mg p.o. 11. Metolazone. 12. Furosemide 40 mg a day. She is currently taking, 1. Amiodarone 2 mg twice a day after 4 mg twice a day loading dose last week. 2. She has been switched from Multaq to amiodarone about 2 weeks ago. 3. Reviewed the MAR revealing IV heparin administration and nitroglycerin. SUBJECTIVE: Ms. Pearson is here due to repeated syncopal spells. She has recently been hospitalized due to diastolic heart failure exacerbation, at which point she needed to be diuresed with metolazone and likely at that time, Multaq was changed to amiodarone. She started developing syncopal spells a day before her admission and she was evaluated in the [place] [facility], where torsade like arrhythmias were noted and subsequently she was transferred to our facility. She underwent an ischemic evaluation with Dr. Mccormick with the left heart catheterization as noted above. No intervention was necessary. She was placed on lidocaine and her basic pacing rate was increased to 80. Since then, her PVCs, which were frequent before have ceased recurring and her torsade like arrhythmias also have not recurred. Currently, she is doing fairly well. Denies angina, CHF like symptoms. No fever, chills, or cough. She is recovering from her heart catheterization in the bed. She has no PND or orthopnea at this time. She has no angina-like discomfort. She does describe some loss of consciousness episodes on admission repeatedly associated with the arrhythmia episodes. She has no fever, chills, or cough. No abdominal discomfort. No neurological deficits, and rest of 12-point review of systems otherwise unremarkable. PAST MEDICAL HISTORY: As above. I have been repeatedly seeing this lady since 2017 with recurrent atrial arrhythmias. She has been reasonably suppressed in the past with Multaq, but again with recent heart failure exacerbation, she was switched to amiodarone. She also had issues with oral anticoagulation due to GI bleed and she has tried Xarelto multiple times in the past, but anemia always become severe, she required transfusions and iron supplementation subsequently. Even Eliquis was initiated, but significant drop in her hematocrit and hemoglobin was also seen. Eventually was treated with aspirin and amiodarone with reasonable suppression of her sustained arrhythmia. More recently, recurrent episodes were seen. She also carries a history of pulmonary embolism, treated with Lovenox and warfarin in the past. She has history of anemia issues, again likely is a GI bleed, worsened by anticoagulants. She has extensive history of coronary artery disease, bypass surgery, and repeat mitral valve replacement in 2001 and 2010. She also has COPD, oxygen dependent; hypothyroidism; and chronic kidney disease. SOCIAL HISTORY: She has a strong family support. Denies smoking, EtOH, or drug abuse. FAMILY HISTORY: Noncontributory. Negative for heart disease. OBJECTIVE DATA: VITAL SIGNS: Currently, blood pressure is 98/56, heart rate 70, respirations 18, and temperature is 97.8 degrees Fahrenheit. GENERAL: Alert and oriented elderly lady, in no apparent distress. NECK: Supple. I do not see extended jugular veins. CHEST: Coarse. No crackles. HEART: Sounds are regular rate and rhythm. The epicardial pacemaker insertion site has healed well. ABDOMEN: Benign. Bowel sounds are positive. EXTREMITIES: Lower extremity with recent left heart catheterization site without reaction. No edema. Pulses are mildly diminished. NEUROLOGIC: The patient is nonfocal. MUSCULOSKELETAL: Without joint swelling or deformity. SKIN: Without rash. DATABASE: Reviewed the EKG. EKG in [facility] from July 07, 2019 reveals atrial paced rhythm, QRS is 440 milliseconds and prolongation of QTc is seen. Subsequent EKG on July 07 reveals QTc of 537, likely even longer on visual inspection. Sinus rhythm at 85 beats per minute is seen. Intermittent ventricular pacing is seen. Reviewed the telemetry strips, revealing clear runs of torsade, initially PVCs or short-long sequences. Since the rates increased to 80 beats per minute, her arrhythmia episode seems to have subsided. She is also on lidocaine since the heart catheterization. LABORATORY DATA: White cell count is 10.2, hemoglobin 11.5, platelet count is 130. INR 1.0. Sodium 141, potassium 3.5, BUN is 42, creatinine is 1.73. Troponin I 0.112. The pacemaker interrogation was reviewed, revealing a Medtronic [place] XT DR dual-chamber pacing with longevity of 11.6 years. Lead parameters are adequate, impedance 418 ohms and 399 ohms in the atrium and RV respectively with sensing 0.3 mV and 6 mV respectively, capture thresholds are adequate. Atrial fibrillation summary reveals most recent advanced atrial fibrillation episodes in July last year with low burden is seen, but some increasing in the frequency and the duration of the episodes are seen for last month or so since the end of May. Ventricular pacing also more pronounced during atrial arrhythmia episodes and less so during sinus rhythm. She was predominantly atrially paced, ventricular pacing percentage is 49.2%. The pacemaker is detecting ventricular tachycardia spells on the and . ASSESSMENT: Ms. Pearson is a pleasant 83-year-old woman with history of coronary artery disease and mitral valve bioprosthesis and prior bypass surgery, dual- chamber and sick sinus syndrome, tachy-stefany syndrome, and recurrent atrial arrhythmias, which in the past were suppressed with Multaq. More recently, she was switched to amiodarone likely due to the heart failure like symptoms throughout hospitalization. She was readmitted with recurrent syncopal spells, which were clearly torsade- like ventricular arrhythmias. She even required defibrillation. Dr. Mccormick has had her undergo a left heart catheterization, but no significant change in her pulmonary status was found and no intervention was necessary. Currently, she seems to be doing better on initiated lidocaine therapy with elevated ventricular pacing rate. No recurrent arrhythmia episodes since. My plan is, 1. Torsade-like VT in the setting of prolonged QT, on amiodarone. she also has borderline low potassium levels and frequent PVCs. As we discussed with Dr. Mccormick adding lidocaine for PVC suppression and increasing pacing rate could help to suppress the tendency for torsade. So far, this approach has been successful. Also, I would advise to keep potassium levels over 4, magnesium levels over 2, replacement is recommended. 2. History of recurrent atrial arrhythmias, atrial fibrillation, atrial tachycardia in the past. She has had reasonable suppression with Multaq in the past, but more recently amiodarone loading was necessary. Unfortunately, on amiodarone, her QT seems to be prolonged and likely contributing to her torsade episodes. Hence, I would recommend to stop amiodarone for now. Monitoring QT interval is necessary before resuming any antiarrhythmic agents. Due to renal insufficiency, prolonged QT, history of coronary artery disease, antiarrhythmic choice is very limited. If recurrent atrial arrhythmias are seen, she may be considered for AV kash ablation. 3. Dual chamber pacemaker, otherwise with adequate function. 4. History of diastolic heart failure with preserved LVEF on recent echocardiogram and stable coronary status. 5. 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 6. Elevated CHADS-VASC score with age, gender, hypertension, diabetes, coronary vascular disease at 6, not on anticoagulant, had recurrent bleeding on NOACs in the past. PLAN: For now, again keep potassium over 4, magnesium greater than 2, avoid amiodarone and other QT prolonging agents. Continue lidocaine tapering it off gradually overnight and monitor for recurrent arrhythmias in the step-down ICU setting. Repeat EKG is advised in the morning. Should the rhythm stabilize, she may be weaned off lidocaine entirely. Job ID: [id number] [facility]
[2019-07-10] MEDS: Potassium Chloride 20 MEQ TAB PO SCH (11:38)
[2019-07-10] MEDS: Aspirin 81 mg Enteric Coated Tablet PO SCH (11:39)
[2019-07-10] MEDS: Cyanocobalamin (Vitamin B-12) 1,000 MCG TAB PO SCH (11:40)
[2019-07-10] MEDS: Allopurinol 100 MG TAB PO SCH ×2 (11:40→19:32)
[2019-07-10] MEDS: Levothyroxine Sodium 75 MCG TAB PO SCH (11:40)
[2019-07-10] MEDS: Furosemide 20 MG TAB PO SCH ×2 (11:40→15:25)
--- NOTE | 2019-07-10 12:17 | PDOC.CPN ---
- Subjective Date: 07/10/19 Time: 12:15 Interval history: Doing well No recurrent dysrhthmias - Objective Allergies/Adverse Reactions: Allergies Allergy/AdvReac Type Severity Reaction Status Date / Time nitrofurantoin Allergy Rash Verified 07/08/19 02:32 penicillin V Allergy Rash Verified 07/08/19 02:32 Penicillins Allergy Rash Verified 07/08/19 02:32 pentazocine Allergy HALLUCINATI Verified 07/08/19 02:32 ONS pentazocine lactate Allergy Verified 07/08/19 02:32 [From Talwin] prednisone Allergy Verified 07/08/19 02:32 rivaroxaban [From Xarelto] Allergy Verified 07/08/19 02:32 simvastatin [From Zocor] Allergy Verified 07/08/19 02:32 MYCINS Allergy Uncoded 07/08/19 02:32 Visit Medications: Current Medications Acetaminophen/Codeine Phosphate (Tylenol #3) 1 tab PO Q4H PRN PRN Reason: Mild Pain (1-3) Acetaminophen/Codeine Phosphate (Tylenol #3) 2 tab PO Q4H PRN PRN Reason: Moderate Pain (4-6) Allopurinol (Zyloprim) 100 mg PO BID [facility] Last Admin: 07/10/19 11:40 Dose: 100 mg Aspirin (Ecotrin) 81 mg PO DAILY [facility] Last Admin: 07/10/19 11:39 Dose: 81 mg Cyanocobalamin (Vitamin B-12) 1,000 mcg PO DAILY [facility] Last Admin: 07/10/19 11:40 Dose: 1,000 mcg Dextrose/Water (Dextrose 50%) 25 gm SLOW IVP PRN PRN PRN Reason: Hypoglycemia Furosemide (Lasix) 40 mg PO 0900,1400 [facility] Last Admin: 07/10/19 11:40 Dose: 40 mg Glucagon (Glucagon) 1 mg IM PRN PRN PRN Reason: Hypoglycemia Dextrose/Water (D5w) 1,000 mls @ 0 mls/hr IV .Q0M PRN PRN Reason: Hypoglycemia Lidocaine HCl/Dextrose (Lidocaine 2 Gm/D5w 500 Ml) 500 mls @ 0 mls/hr IVPB INF [facility]; Protocol Last Admin: 07/10/19 01:49 Dose: 500 mls Nitroglycerin/Dextrose (Nitroglycerin 50 Mg/250 Ml Bot) 250 mls @ 0 mls/hr IVPB INF [facility]; Protocol Levothyroxine Sodium (Synthroid) 75 mcg PO DAILY [facility] Last Admin: 07/10/19 11:40 Dose: 75 mcg Morphine Sulfate (Morphine) 2 mg SLOW IVP Q4H PRN PRN Reason: Chest Pain Last Admin: 07/10/19 01:57 Dose: 2 mg Nitroglycerin (Nitrostat) 0.4 mg SL Q5MIN PRN PRN Reason: Chest Pain Ondansetron HCl (Zofran) 4 mg SLOW IVP Q6H PRN PRN Reason: Nausea/Vomiting Last Admin: 07/10/19 04:45 Dose: 4 mg Potassium Chloride (K-Dur) 20 meq PO QAM-WM [facility] Last Admin: 07/10/19 11:38 Dose: 20 meq Sodium Chloride ([place] Nasal [place] 0.65%) 1 ml EA NARE TID [facility] Last Admin: 07/09/19 21:23 Dose: Not Given Vital Signs & Weight: Vital Signs Temp Pulse Ox 07/10/19 10:00 97.9 F 07/10/19 03:00 98.2 F 07/10/19 02:03 95 Weight 157 lb 3.033 oz - Physical Exam General: appears well Neck: no masses, no bruit Cardiac: regular rate, regular rhythm Lungs: normal exam Neuro: grossly intact - Labs Result Diagrams: 07/10/19 04:01 07/10/19 04:01 Troponin/CKMB CK-MB (CK-2) 1.6 ng/mL (0-6.6) 07/08/19 16:17 Troponin I 0.060 ng/mL (< 0.028) H 07/10/19 04:01 - Assessment/Plan Assessment/Plan: Torsades CAD s/p CABG Patent grafts Keep Mg and K above 2 and 4 respectively Decrease lidocaine to 1mg a min increase lidocaine if recurrent TD Increase pacer rate
--- NOTE | 2019-07-10 13:46 | PDOC.HOSPP ---
- Subjective Encounter Date: 07/10/19 Subjective: She reports she is doing generally well. Her only concern today is that she feels like she needs to have a bowel movement and has been unable to use the bedpan. - Objective Vital Signs & Weight: Vital Signs (12 hours) Temp Pulse Ox 07/10/19 10:00 97.9 F 07/10/19 03:00 98.2 F 07/10/19 02:03 95 Weight Weight 157 lb 3.033 oz Most Recent Monitor Data Heart Rate from ECG 80 NIBP 127/56 NIBP BP-Mean 79 Respiration from ECG 19 SpO2 98 I&O: 07/09/19 07/10/19 07/11/19 06:59 06:59 06:59 Intake Total 1086 1848 Output Total 750 1100 Balance 336 748 Result Diagrams: 07/10/19 04:01 07/10/19 04:01 Additional Labs: Accuchecks 07/10/19 07/10/19 07/09/19 12:04 06:22 21:46 POC Glucose 213 H 219 H 215 H 07/09/19 16:29 POC Glucose 208 H Hospitalist ROS - Medication Medications: Active Medications Generic Name Dose Route Start Last Admin Trade Name Freq PRN Reason Stop Dose Admin Allopurinol 100 mg 07/08/19 09:00 07/10/19 11:40 Zyloprim PO 100 mg BID [facility] Administration Aspirin 81 mg 07/08/19 09:00 07/10/19 11:39 Ecotrin PO 81 mg DAILY [facility] Administration Cyanocobalamin 1,000 mcg 07/08/19 09:00 07/10/19 11:40 Vitamin B-12 PO 1,000 mcg DAILY [facility] Administration Furosemide 40 mg 07/09/19 09:00 07/10/19 11:40 Lasix PO 40 mg 0900,1400 [facility] Administration Lidocaine HCl/Dextrose 500 mls @ 0 mls/hr 07/09/19 08:30 07/10/19 01:49 Lidocaine 2 Gm/D5w 500 Ml IVPB 500 mls INF [facility] Administration Protocol Titrate Levothyroxine Sodium 75 mcg 07/08/19 09:00 07/10/19 11:40 Synthroid PO 75 mcg DAILY [facility] Administration Morphine Sulfate 2 mg 07/08/19 16:24 07/10/19 01:57 Morphine SLOW IVP 2 mg Q4H PRN Administration Chest Pain Ondansetron HCl 4 mg 07/10/19 04:48 07/10/19 04:45 Zofran SLOW IVP 4 mg Q6H PRN Administration Nausea/Vomiting Potassium Chloride 20 meq 07/10/19 08:00 07/10/19 11:38 K-Dur PO 20 meq QAM-WM [facility] Administration Sodium Chloride 1 ml 07/08/19 15:00 07/09/19 21:23 [place] Nasal [place] 0.65% EA NARE Not Given TID [facility] - Exam General Appearance: NAD, awake alert Heart: RRR, no murmur, no gallops, no rubs, normal peripheral pulses Respiratory: CTAB, no wheezes, no rales, no ronchi, normal chest expansion, no tachypnea, normal percussion Gastrointestinal: soft, non-tender, non-distended, normal bowel sounds, no palpable masses, no hepatomegaly, no splenomegaly, no bruit Extremities: no cyanosis, no clubbing, no edema Skin: normal turgor Neurological: no focal deficits Musculoskeletal: normal tone Psychiatric: normal affect, normal behavior, A&O x 3 Hosp A/P (1) Torsades de pointes Code(s): I47.2 - VENTRICULAR TACHYCARDIA Status: Acute (2) Atrial flutter Code(s): I48.92 - UNSPECIFIED ATRIAL FLUTTER Status: Chronic (3) CAD (coronary artery disease) Code(s): I25.10 - ATHSCL HEART DISEASE OF [place] CORONARY ARTERY W/O ANG PCTRS Status: Chronic Qualifiers: Coronary Disease-Associated Artery/Lesion type: bypass graft Three Affiliated vs. transplanted heart: [place] heart Associated angina: without angina Qualified Code(s): I25.810 - Atherosclerosis of coronary artery bypass graft(s) without angina pectoris (4) Diabetes type 2, controlled Code(s): E11.9 - TYPE 2 DIABETES MELLITUS WITHOUT COMPLICATIONS Status: Chronic Qualifiers: Diabetes mellitus vermin exterminator insulin use: with vermin exterminator use Diabetes mellitus complication status: without complication Qualified Code(s): E11.9 - Type 2 diabetes mellitus without complications; Z79.4 - long-term (current) use of insulin (5) HLD (hyperlipidemia) Code(s): E78.5 - HYPERLIPIDEMIA, UNSPECIFIED Status: Chronic Qualifiers: Hyperlipidemia type: pure hypercholesterolemia Qualified Code(s): E78.00 - Pure hypercholesterolemia, unspecified; E78.0 - Pure hypercholesterolemia (6) Hypothyroidism Code(s): E03.9 - HYPOTHYROIDISM, UNSPECIFIED Status: Chronic Qualifiers: Hypothyroidism type: unspecified Qualified Code(s): E03.9 - Hypothyroidism , unspecified - Plan Patient has been seen by cardiology and by electrophysiology. She is off of amiodarone and now on a lidocaine drip which is being tapered. She is currently in a paced rhythm and the goal is to taper the lidocaine to see if we can keep her in the paced rhythm without recurrences of the torsades. Continuing to maintain her electrolytes within the abundantly normal range. Resuming home medications for hypertension and hypothyroidism
[2019-07-10] MEDS: Sodium Chloride 0.65% Nasal 44 ML BOT EA NARE SCH ×3 (15:10→19:32)
[2019-07-10] MEDS: ALPRAZolam 0.25 MG TAB PO PRN (21:10)
[2019-07-11] MEDS: Lidocaine 2 gm/D5W 500 ml 500 ML IVPB SCH (01:16)
[2019-07-11] MEDS ORDERED: Diabetic Tussin 200 MG/10 ML UDCUP PO PRN (01:23)
[2019-07-11] MEDS ORDERED: Docusate 100 MG CAP PO SCH (01:30)
[2019-07-11 04:50] LABS: Anion Gap 15 mmol/L (10-20); BUN (Urea Nitrogen) 41 mg/dL (9.8-20.1); Calc. Creatinine Clearance 35 mL/min (70-130); Calcium 9.1 mg/dL (7.8-10.44); Carbon Dioxide 27 mmol/L (23-31); Chloride 98 mmol/L (98-107); Estimated GFR-MDRD 38; Glucose 158 mg/dL (83-110); Potassium 3.9 mmol/L (3.5-5.1); Sodium 136 mmol/L (136-145)
[2019-07-11] MEDS: Morphine 2 MG/ML SYRINGE SLOW IVP PRN ×2 (06:15→11:07)
[2019-07-11] MEDS: Potassium Chloride 20 MEQ TAB PO SCH (06:16)
--- NOTE | 2019-07-11 07:14 | PDOC.CPN ---
- Subjective Date: 07/11/19 Time: 07:13 Interval history: No changes noted overnight - Objective Allergies/Adverse Reactions: Allergies Allergy/AdvReac Type Severity Reaction Status Date / Time nitrofurantoin Allergy Rash Verified 07/08/19 02:32 penicillin V Allergy Rash Verified 07/08/19 02:32 Penicillins Allergy Rash Verified 07/08/19 02:32 pentazocine Allergy HALLUCINATI Verified 07/08/19 02:32 ONS pentazocine lactate Allergy Verified 07/08/19 02:32 [From Talwin] prednisone Allergy Verified 07/08/19 02:32 rivaroxaban [From Xarelto] Allergy Verified 07/08/19 02:32 simvastatin [From Zocor] Allergy Verified 07/08/19 02:32 MYCINS Allergy Uncoded 07/08/19 02:32 Visit Medications: Current Medications Acetaminophen/Codeine Phosphate (Tylenol #3) 1 tab PO Q4H PRN PRN Reason: Mild Pain (1-3) Acetaminophen/Codeine Phosphate (Tylenol #3) 2 tab PO Q4H PRN PRN Reason: Moderate Pain (4-6) Allopurinol (Zyloprim) 100 mg PO BID [facility] Last Admin: 07/10/19 19:32 Dose: 100 mg Alprazolam (Xanax) 0.25 mg PO BIDPRN PRN PRN Reason: Anxiety Last Admin: 07/10/19 21:10 Dose: 0.25 mg Aspirin (Ecotrin) 81 mg PO DAILY [facility] Last Admin: 07/10/19 11:39 Dose: 81 mg Cyanocobalamin (Vitamin B-12) 1,000 mcg PO DAILY [facility] Last Admin: 07/10/19 11:40 Dose: 1,000 mcg Dextrose/Water (Dextrose 50%) 25 gm SLOW IVP PRN PRN PRN Reason: Hypoglycemia Docusate Sodium (Colace) 100 mg PO BID [facility] Furosemide (Lasix) 40 mg PO 0900,1400 [facility] Last Admin: 07/10/19 15:25 Dose: 40 mg Glucagon (Glucagon) 1 mg IM PRN PRN PRN Reason: Hypoglycemia Guaifenesin (Robitussin Sf) 100 mg PO Q4H PRN PRN Reason: Cough Last Admin: 07/11/19 01:36 Dose: 100 mg Dextrose/Water (D5w) 1,000 mls @ 0 mls/hr IV .Q0M PRN PRN Reason: Hypoglycemia Lidocaine HCl/Dextrose (Lidocaine 2 Gm/D5w 500 Ml) 500 mls @ 0 mls/hr IVPB INF [facility]; Protocol Last Admin: 07/11/19 01:16 Dose: 500 mls Nitroglycerin/Dextrose (Nitroglycerin 50 Mg/250 Ml Bot) 250 mls @ 0 mls/hr IVPB INF [facility]; Protocol Levothyroxine Sodium (Synthroid) 75 mcg PO DAILY [facility] Last Admin: 07/10/19 11:40 Dose: 75 mcg Morphine Sulfate (Morphine) 2 mg SLOW IVP Q4H PRN PRN Reason: Chest Pain Last Admin: 07/11/19 06:15 Dose: 2 mg Nitroglycerin (Nitrostat) 0.4 mg SL Q5MIN PRN PRN Reason: Chest Pain Ondansetron HCl (Zofran) 4 mg SLOW IVP Q6H PRN PRN Reason: Nausea/Vomiting Last Admin: 07/10/19 04:45 Dose: 4 mg Potassium Chloride (K-Dur) 20 meq PO QAM-[facility] Last Admin: 07/11/19 06:16 Dose: 20 meq Sodium Chloride ([place] Nasal [place] 0.65%) 1 ml EA NARE TID [facility] Last Admin: 07/10/19 19:32 Dose: 1 drop Vital Signs & Weight: Vital Signs Temp Pulse Ox 07/11/19 05:00 98.4 F 07/11/19 00:00 98.1 F 07/10/19 20:00 98.2 F 97 Weight 157 lb 3.033 oz - Physical Exam General: alert & oriented x3 Neck: no JVD/HJR, no masses, no bruit Cardiac: regular rate, regular rhythm Lungs: normal exam Neuro: grossly intact - Labs Result Diagrams: 07/10/19 04:01 07/11/19 04:01 Troponin/CKMB CK-MB (CK-2) 1.6 ng/mL (0-6.6) 07/08/19 16:17 Troponin I 0.060 ng/mL (< 0.028) H 07/10/19 04:01 - Assessment/Plan Assessment/Plan: Torsades CAD s/p CABG Patent grafts 07/10 check BMP Reduce lidocaine to 0.5mg/min Keep in ICU overnight 07/09 Keep Mg and K above 2 and 4 respectively Decrease lidocaine to 1mg a min increase lidocaine if recurrent TD Increase pacer rate
[2019-07-11] MEDS: Furosemide 20 MG TAB PO SCH ×2 (08:41→14:34)
[2019-07-11] MEDS: Aspirin 81 mg Enteric Coated Tablet PO SCH (08:41)
[2019-07-11] MEDS: Allopurinol 100 MG TAB PO SCH ×2 (08:42→21:57)
[2019-07-11] MEDS: Docusate 100 MG CAP PO SCH ×2 (08:42→21:57)
[2019-07-11] MEDS: Levothyroxine Sodium 75 MCG TAB PO SCH (08:42)
[2019-07-11] MEDS: Cyanocobalamin (Vitamin B-12) 1,000 MCG TAB PO SCH (08:42)
[2019-07-11] MEDS: Sodium Chloride 0.65% Nasal 44 ML BOT EA NARE SCH ×3 (08:42→21:57)
[2019-07-11] MEDS: Ondansetron PF 4 MG/2 ML Vial SLOW IVP PRN ×2 (09:06→22:55)
--- NOTE | 2019-07-11 13:27 | PRG ---
DATE OF SERVICE: 07/11/2019 SUBJECTIVE: Ms. Pearson had no recurrence of her ventricular tachycardia. She has no complaints. Her sternum is sore, that is not a new complaint. OBJECTIVE: LUNGS: Clear. HEART: Regular rhythm. ABDOMEN: Soft. LABORATORY DATA: White count is not repeated today. Electrolytes; sodium 136, potassium 3.9, chloride 98, bicarb 27, BUN 41, creatinine 1.34. IMPRESSION: Ventricular tachycardia, probably triggered by amiodarone, clinically stable. We will continue to follow. We will get her an incentive spirometer. Job ID: [id number]
[2019-07-11] MEDS: Acetaminophen/Codeine 30-300mg Tablet PO PRN (16:24)
--- NOTE | 2019-07-11 16:52 | PDOC.HOSPP ---
- Subjective Encounter Date: 07/11/19 Subjective: Patient is doing well denies any specific problems. Plan discussed with nurse. Her blood sugars running high. Patient typically takes some Lantus in the evening. - Objective Vital Signs & Weight: Vital Signs (12 hours) Temp Pulse Ox 07/11/19 16:00 98.3 F 07/11/19 12:00 98.5 F 07/11/19 08:00 98.2 F 100 07/11/19 05:00 98.4 F Weight Weight 157 lb 3.033 oz Most Recent Monitor Data Heart Rate from ECG 80 NIBP 101/50 NIBP BP-Mean 67 Respiration from ECG 20 SpO2 97 I&O: 07/10/19 07/11/19 07/12/19 06:59 06:59 06:59 Intake Total 1848 209.2 300 Output Total 1100 1250 350 Balance 748 -1040.8 -50 Result Diagrams: 07/10/19 04:01 07/11/19 04:01 Additional Labs: Accuchecks 07/11/19 07/10/19 11:46 22:02 POC Glucose 223 H 159 H Hospitalist ROS - Medication Medications: Active Medications Generic Name Dose Route Start Last Admin Trade Name Freq PRN Reason Stop Dose Admin Acetaminophen/Codeine Phosphate 2 tab 07/09/19 08:21 07/11/19 16:24 Tylenol #3 PO 2 tab Q4H PRN Administration Moderate Pain (4-6) Allopurinol 100 mg 07/08/19 09:00 07/11/19 08:42 Zyloprim PO 100 mg BID KELLY Administration Alprazolam 0.25 mg 07/10/19 13:45 07/10/19 21:10 Xanax PO 0.25 mg BIDPRN PRN Administration Anxiety Aspirin 81 mg 07/08/19 09:00 07/11/19 08:41 Ecotrin PO 81 mg DAILY KELLY Administration Cyanocobalamin 1,000 mcg 07/08/19 09:00 07/11/19 08:42 Vitamin B-12 PO 1,000 mcg DAILY KELLY Administration Docusate Sodium 100 mg 07/11/19 09:00 07/11/19 08:42 Colace PO 100 mg BID KELLY Administration Fentanyl 25 mcg 07/11/19 08:30 07/11/19 09:38 Duragesic TD 25 mcg Q3D KELLY Administration Furosemide 40 mg 07/09/19 09:00 07/11/19 14:34 Lasix PO 40 mg 0900,1400 KELLY Administration Guaifenesin 100 mg 07/11/19 01:23 07/11/19 01:36 Robitussin Sf PO 100 mg Q4H PRN Administration Cough Lidocaine HCl/Dextrose 500 mls @ 0 mls/hr 07/09/19 08:30 07/11/19 01:16 Lidocaine 2 Gm/D5w 500 Ml IVPB 500 mls INF KELLY Administration Protocol Titrate Levothyroxine Sodium 75 mcg 07/08/19 09:00 07/11/19 08:42 Synthroid PO 75 mcg DAILY KELLY Administration Morphine Sulfate 4 mg 07/11/19 08:23 07/11/19 11:07 Morphine SLOW IVP 4 mg Q2H PRN Administration Chest Pain Ondansetron HCl 4 mg 07/10/19 04:48 07/11/19 09:06 Zofran SLOW IVP 4 mg Q6H PRN Administration Nausea/Vomiting Potassium Chloride 20 meq 07/10/19 08:00 07/11/19 06:16 K-Dur PO 20 meq QAM-WM KELLY Administration Sodium Chloride 1 ml 07/08/19 15:00 07/11/19 14:34 [place] Nasal [place] 0.65% EA NARE Not Given TID KELLY - Exam General Appearance: NAD, awake alert Heart: RRR, no murmur, no gallops, no rubs, normal peripheral pulses Respiratory: CTAB, no wheezes, no rales, no ronchi, normal chest expansion, no tachypnea, normal percussion Gastrointestinal: soft, non-tender, non-distended, normal bowel sounds, no palpable masses, no hepatomegaly, no splenomegaly, no bruit Extremities: no cyanosis, no clubbing, no edema Skin: normal turgor Musculoskeletal: normal tone Psychiatric: normal affect, normal behavior, A&O x 3 Hosp A/P (1) Torsades de pointes Code(s): I47.2 - VENTRICULAR TACHYCARDIA Status: Acute (2) Atrial flutter Code(s): I48.92 - UNSPECIFIED ATRIAL FLUTTER Status: Chronic (3) CAD (coronary artery disease) Code(s): I25.10 - ATHSCL HEART DISEASE OF [place] CORONARY ARTERY W/O ANG PCTRS Status: Chronic Qualifiers: Coronary Disease-Associated Artery/Lesion type: bypass graft [place] vs. transplanted heart: [place] heart Associated angina: without angina Qualified Code(s): I25.810 - Atherosclerosis of coronary artery bypass graft(s) without angina pectoris (4) Diabetes type 2, controlled Code(s): E11.9 - TYPE 2 DIABETES MELLITUS WITHOUT COMPLICATIONS Status: Chronic Qualifiers: Diabetes mellitus mica washer gluer insulin use: with group home use Diabetes mellitus complication status: without complication Qualified Code(s): E11.9 - Type 2 diabetes mellitus without complications; Z79.4 - [facility] (current) use of insulin (5) HLD (hyperlipidemia) Code(s): E78.5 - HYPERLIPIDEMIA, UNSPECIFIED Status: Chronic Qualifiers: Hyperlipidemia type: pure hypercholesterolemia Qualified Code(s): E78.00 - Pure hypercholesterolemia, unspecified; E78.0 - Pure hypercholesterolemia (6) Hypothyroidism Code(s): E03.9 - HYPOTHYROIDISM, UNSPECIFIED Status: Chronic Qualifiers: Hypothyroidism type: unspecified Qualified Code(s): E03.9 - Hypothyroidism , unspecified - Plan Patient has been seen by cardiology and by electrophysiology. She is off of amiodarone and now on a lidocaine drip which is being tapered.'s decreased to 0.5/h. She is currently in a paced rhythm and the goal is to taper the lidocaine to see if we can keep her in the paced rhythm without recurrences of the torsades. Continuing to maintain her electrolytes within the abundantly normal range. Resuming home medications for hypertension and hypothyroidism. Add Lantus 10 units subcu nightly.
[2019-07-11] MEDS: Insulin Glargine 10 UNITS in Pre-Filled Syringe SC SCH (21:57)
[2019-07-11] MEDS ORDERED: Fleet Enema 133 ML BOT PR SCH (23:15)
[2019-07-12 04:05] LABS: Anion Gap 14 mmol/L (10-20); BUN (Urea Nitrogen) 40 mg/dL (9.8-20.1); Calc. Creatinine Clearance 39 mL/min (70-130); Calcium 9.3 mg/dL (7.8-10.44); Carbon Dioxide 31 mmol/L (23-31); Chloride 98 mmol/L (98-107); Estimated GFR-MDRD 42; Glucose 167 mg/dL (83-110); Sodium 139 mmol/L (136-145)
[2019-07-12] MEDS: Docusate 100 MG CAP PO SCH ×2 (08:39→21:15)
[2019-07-12] MEDS: Furosemide 20 MG TAB PO SCH ×3 (08:39→16:57)
[2019-07-12] MEDS: Potassium Chloride 20 MEQ TAB PO SCH (08:39)
[2019-07-12] MEDS: Aspirin 81 mg Enteric Coated Tablet PO SCH (08:40)
[2019-07-12] MEDS: Allopurinol 100 MG TAB PO SCH ×2 (08:40→21:15)
[2019-07-12] MEDS: Levothyroxine Sodium 75 MCG TAB PO SCH (08:40)
[2019-07-12] MEDS: Cyanocobalamin (Vitamin B-12) 1,000 MCG TAB PO SCH (08:40)
[2019-07-12] MEDS: Sodium Chloride 0.65% Nasal 44 ML BOT EA NARE SCH ×4 (08:42→21:26)
[2019-07-12] MEDS: ALPRAZolam 0.25 MG TAB PO PRN ×2 (09:13→21:14)
[2019-07-12] MEDS: Ubidecarenone 50 MG CAP PO SCH (09:14)
--- NOTE | 2019-07-12 10:11 | PRG ---
DATE OF SERVICE: 07/12/2019 SUBJECTIVE: The patient remains in the ICU. She has been taken off the lidocaine drip. She is complaining of chest pain from rib fractures from CPR. OBJECTIVE: VITAL SIGNS: Temperature is 98.4, pulse 80, blood pressure 88/63. HEENT: Unremarkable. NECK: No JVD. LUNGS: Clear. CARDIAC: S1 and S2 paced. ABDOMEN: Soft and nontender. ASSESSMENT: 1. Status post ventricular tachycardia, possibly triggered by amiodarone. 2. Rib fractures. 3. Stable pulmonary status. PLAN: She is supposed to stay in the CCU today and perhaps go to the floor tomorrow. Her pulmonary status is stable on incentive spirometry. Job ID: [id number]
[2019-07-12] MEDS: Acetaminophen/Codeine 30-300mg Tablet PO PRN (11:41)
[2019-07-12] MEDS: Ondansetron PF 4 MG/2 ML Vial SLOW IVP PRN (11:52)
[2019-07-12] MEDS: Hyoscyamine Sulfate SL 0.125 mg Tablet PO PRN (12:33)
--- NOTE | 2019-07-12 16:25 | PDOC.HOSPP ---
- Subjective Encounter Date: 07/12/19 Subjective: Patient apparently had her lidocaine discontinued this morning. Plan was to keep her through the night on CCU monitoring. She complains today of significant abdominal distention and gas. She states it is very uncomfortable. She has not been out of the bed much. She normally takes MiraLAX nightly. Today she required an enema in the morning and had a significant result with that. - Objective Vital Signs & Weight: Weight Weight 157 lb 3.033 oz Most Recent Monitor Data Heart Rate from ECG 71 NIBP 111/44 NIBP BP-Mean 66 Respiration from ECG 23 SpO2 97 I&O: 07/11/19 07/12/19 07/13/19 06:59 06:59 06:59 Intake Total 209.2 1149.5 Output Total 1250 800 Balance -1040.8 349.5 Result Diagrams: 07/10/19 04:01 07/12/19 03:21 Additional Labs: Accuchecks 07/12/19 07/12/19 07/11/19 11:53 06:17 22:00 POC Glucose 164 H 156 H 191 H 07/11/19 16:41 POC Glucose 200 H Hospitalist ROS - Medication Medications: Active Medications Generic Name Dose Route Start Last Admin Trade Name Freq PRN Reason Stop Dose Admin Acetaminophen/Codeine Phosphate 2 tab 07/09/19 08:21 07/12/19 11:41 Tylenol #3 PO 2 tab Q4H PRN Administration Moderate Pain (4-6) Allopurinol 100 mg 07/08/19 09:00 07/12/19 08:40 Zyloprim PO 100 mg BID KELLY Administration Alprazolam 0.25 mg 07/10/19 13:45 07/12/19 09:13 Xanax PO 0.25 mg BIDPRN PRN Administration Anxiety Aspirin 81 mg 07/08/19 09:00 07/12/19 08:40 Ecotrin PO 81 mg DAILY KELLY Administration Coenzyme Q10 200 mg 07/12/19 09:00 07/12/19 09:14 Coenzyme Q10 PO 200 mg DAILY KELLY Administration Cyanocobalamin 1,000 mcg 07/08/19 09:00 07/12/19 08:40 Vitamin B-12 PO 1,000 mcg DAILY KELLY Administration Docusate Sodium 100 mg 07/11/19 09:00 07/12/19 08:39 Colace PO 100 mg BID KELLY Administration Fentanyl 25 mcg 07/11/19 08:30 07/11/19 09:38 Duragesic TD 25 mcg Q3D KELLY Administration Furosemide 40 mg 07/09/19 09:00 07/12/19 08:39 Lasix PO 40 mg 0900,1400 KELLY Administration Guaifenesin 100 mg 07/11/19 01:23 07/11/19 01:36 Robitussin Sf PO 100 mg Q4H PRN Administration Cough Hyoscyamine Sulfate 0.125 mg 07/12/19 11:44 07/12/19 12:33 Levsin Sl PO 0.125 mg Q4H PRN Administration Abdominal Distention Lidocaine HCl/Dextrose 500 mls @ 0 mls/hr 07/09/19 08:30 07/11/19 01:16 Lidocaine 2 Gm/D5w 500 Ml IVPB 500 mls INF KELLY Administration Protocol Titrate Insulin Glargine 10 units/ 0.1 mls @ 0 mls/hr 07/11/19 21:00 07/11/19 21:57 Miscellaneous Medication SC 0.1 mls HS KELLY Administration Levothyroxine Sodium 75 mcg 07/08/19 09:00 07/12/19 08:40 Synthroid PO 75 mcg DAILY KELLY Administration Morphine Sulfate 4 mg 07/11/19 08:23 07/11/19 11:07 Morphine SLOW IVP 4 mg Q2H PRN Administration Chest Pain Ondansetron HCl 4 mg 07/10/19 04:48 07/12/19 11:52 Zofran SLOW IVP 4 mg Q6H PRN Administration Nausea/Vomiting Pantoprazole Sodium 40 mg 07/12/19 09:00 07/12/19 09:14 Protonix PO 40 mg DAILY KELLY Administration Potassium Chloride 20 meq 07/10/19 08:00 07/12/19 08:39 K-Dur PO 20 meq QAM-WM KELLY Administration Sodium Chloride 1 ml 07/08/19 15:00 07/12/19 09:13 [place] Nasal [place] 0.65% EA NARE Not Given TID KELLY Sodium Chloride 10 ml 07/12/19 09:00 07/12/19 09:14 Flush - Normal Saline IVF 10 ml Q12HR KELLY Administration - Exam General - other findings: Appears uncomfortable. Heart: RRR, no murmur, no gallops, no rubs, normal peripheral pulses Respiratory: CTAB, no wheezes, no rales, no ronchi, normal chest expansion, no tachypnea, normal percussion Gastrointestinal: soft, no rigidity, tender to palpation (Mildly and diffusely) , distended (Hyperresonant to percussion) Extremities: no cyanosis, no clubbing, no edema Skin: normal turgor Musculoskeletal: normal tone Psychiatric: normal affect, normal behavior, A&O x 3 Hosp A/P (1) Torsades de pointes Code(s): I47.2 - VENTRICULAR TACHYCARDIA Status: Acute (2) Atrial flutter Code(s): I48.92 - UNSPECIFIED ATRIAL FLUTTER Status: Chronic (3) CAD (coronary artery disease) Code(s): I25.10 - ATHSCL HEART DISEASE OF [place] CORONARY ARTERY W/O ANG PCTRS Status: Chronic Qualifiers: Coronary Disease-Associated Artery/Lesion type: bypass graft [place] vs. transplanted heart: [place] heart Associated angina: without angina Qualified Code(s): I25.810 - Atherosclerosis of coronary artery bypass graft(s) without angina pectoris (4) Diabetes type 2, controlled Code(s): E11.9 - TYPE 2 DIABETES MELLITUS WITHOUT COMPLICATIONS Status: Chronic Qualifiers: Diabetes mellitus [facility] insulin use: with lobsterman use Diabetes mellitus complication status: without complication Qualified Code(s): E11.9 - Type 2 diabetes mellitus without complications; Z79.4 - moth exterminator (current) use of insulin (5) HLD (hyperlipidemia) Code(s): E78.5 - HYPERLIPIDEMIA, UNSPECIFIED Status: Chronic Qualifiers: Hyperlipidemia type: pure hypercholesterolemia Qualified Code(s): E78.00 - Pure hypercholesterolemia, unspecified; E78.0 - Pure hypercholesterolemia (6) Hypothyroidism Code(s): E03.9 - HYPOTHYROIDISM, UNSPECIFIED Status: Chronic Qualifiers: Hypothyroidism type: unspecified Qualified Code(s): E03.9 - Hypothyroidism , unspecified (7) Gaseous abdominal distention Code(s): R14.0 - ABDOMINAL DISTENSION (GASEOUS) Status: Acute - Plan Torsades: Patient has been seen by cardiology and by electrophysiology. She is off of amiodarone and lidocaine. She is currently in a paced rhythm. Continuing to maintain her electrolytes within the abundantly normal range. Hypertension: Resume home meds Hypothyroidism: Continue home levothyroxine dose. Diabetes mellitus type 2: Resume the patient's subcu Lantus nightly. Gaseous abdominal distention: Strongly encouraged the patient to get out of bed up to a chair today. Will have physical therapy try to get her up as well today. I believe this will help mobilize the gas for her. She belched several times during our discussion and I believe that would be helpful. Will provide some Levsin as needed.
[2019-07-12] MEDS: Morphine 2 MG/ML SYRINGE SLOW IVP PRN (17:05)
[2019-07-12] MEDS: Insulin Glargine 10 UNITS in Pre-Filled Syringe SC SCH (21:15)
[2019-07-12] MEDS: Polyethylene Glycol 3350 17 GM Packet PO SCH (21:15)
[2019-07-13] MEDS: Acetaminophen/Codeine 30-300mg Tablet PO PRN ×2 (00:37→20:05)
[2019-07-13 04:33] LABS: Anion Gap 14 mmol/L (10-20); BUN (Urea Nitrogen) 37 mg/dL (9.8-20.1); Calc. Creatinine Clearance 43 mL/min (70-130); Calcium 9.5 mg/dL (7.8-10.44); Carbon Dioxide 30 mmol/L (23-31); Chloride 97 mmol/L (98-107); Estimated GFR-MDRD 48; Glucose 153 mg/dL (83-110); Magnesium 1.7 mg/dL (1.6-2.6); Potassium 3.3 mmol/L (3.5-5.1); Sodium 138 mmol/L (136-145)
[2019-07-13] MEDS: Levothyroxine Sodium 75 MCG TAB PO SCH (07:24)
[2019-07-13] MEDS ORDERED: Potassium Chloride 40 MEQ in Sodium Chloride 0.9% 250 ML 250 ML IVPB SCH (08:45)
[2019-07-13] MEDS ORDERED: Milk Of Magnesia 30 ML UDCUP PO PRN (08:52)
[2019-07-13] MEDS: Aspirin 81 mg Enteric Coated Tablet PO SCH (08:59)
[2019-07-13] MEDS: Potassium Chloride 20 MEQ TAB PO SCH ×2 (08:59→18:34)
[2019-07-13] MEDS: Docusate 100 MG CAP PO SCH ×2 (08:59→20:07)
[2019-07-13] MEDS: Allopurinol 100 MG TAB PO SCH ×2 (08:59→20:07)
[2019-07-13] MEDS ORDERED: Magnesium Oxide 400 MG TAB PO SCH (09:00)
[2019-07-13] MEDS: Furosemide 20 MG TAB PO SCH ×2 (09:00→15:33)
[2019-07-13] MEDS: Ubidecarenone 50 MG CAP PO SCH (09:00)
[2019-07-13] MEDS: Cyanocobalamin (Vitamin B-12) 1,000 MCG TAB PO SCH (09:00)
[2019-07-13] MEDS: Sodium Chloride 0.65% Nasal 44 ML BOT EA NARE SCH ×3 (09:06→20:33)
--- NOTE | 2019-07-13 15:10 | PDOC.EP ---
- Subjective Date: 07/13/19 Time: 08:00 Interval History: This is electrophysiology follow-up note ventricular arrhythmia management and QTC prolongation. she is feeling well today she does not voice any cardiac concerns or complaints. She reports feeling very distended with gas - Review of Systems Constitutional: denies: chills, fever, malaise, sweats, weakness Respiratory: denies: hemoptysis, pleuritic pain, shortness of breath, sputum, wheezing Cardiology: denies: chest pain, edema, heart racing, light headedness, passing out Gastrointestinal: reports: abdominal pain, nausea, other (gas). denies: diarrhea, vomitting - Objective Allergies/Adverse Reactions: Allergies Allergy/AdvReac Type Severity Reaction Status Date / Time nitrofurantoin Allergy Rash Verified 07/08/19 02:32 penicillin V Allergy Rash Verified 07/08/19 02:32 Penicillins Allergy Rash Verified 07/08/19 02:32 pentazocine Allergy HALLUCINATI Verified 07/08/19 02:32 ONS pentazocine lactate Allergy Verified 07/08/19 02:32 [From Talwin] prednisone Allergy Verified 07/08/19 02:32 rivaroxaban [From Xarelto] Allergy Verified 07/08/19 02:32 simvastatin [From Zocor] Allergy Verified 07/08/19 02:32 MYCINS Allergy Uncoded 07/08/19 02:32 Current Medications Acetaminophen/Codeine Phosphate (Tylenol #3) 1 tab PO Q4H PRN PRN Reason: Mild Pain (1-3) Acetaminophen/Codeine Phosphate (Tylenol #3) 2 tab PO Q4H PRN PRN Reason: Moderate Pain (4-6) Last Admin: 07/13/19 00:37 Dose: 2 tab Allopurinol (Zyloprim) 100 mg PO BID [facility] Last Admin: 07/13/19 08:59 Dose: 100 mg Alprazolam (Xanax) 0.25 mg PO BIDPRN PRN PRN Reason: Anxiety Last Admin: 07/12/19 21:14 Dose: 0.25 mg Aspirin (Ecotrin) 81 mg PO DAILY [facility] Last Admin: 07/13/19 08:59 Dose: 81 mg Coenzyme Q10 (Coenzyme Q10) 200 mg PO DAILY [facility] Last Admin: 07/13/19 09:00 Dose: 200 mg Cyanocobalamin (Vitamin B-12) 1,000 mcg PO DAILY [facility] Last Admin: 07/13/19 09:00 Dose: 1,000 mcg Dextrose/Water (Dextrose 50%) 25 gm SLOW IVP PRN PRN PRN Reason: Hypoglycemia Docusate Sodium (Colace) 100 mg PO BID [facility] Last Admin: 07/13/19 08:59 Dose: 100 mg Fentanyl (Duragesic) 25 mcg TD Q3D [facility] Last Admin: 07/11/19 09:38 Dose: 25 mcg Furosemide (Lasix) 40 mg PO 0900,1400 [facility] Last Admin: 07/13/19 09:00 Dose: 40 mg Glucagon (Glucagon) 1 mg IM PRN PRN PRN Reason: Hypoglycemia Guaifenesin (Robitussin Sf) 100 mg PO Q4H PRN PRN Reason: Cough Last Admin: 07/11/19 01:36 Dose: 100 mg Hyoscyamine Sulfate (Levsin Sl) 0.125 mg PO Q4H PRN PRN Reason: Abdominal Distention Last Admin: 07/12/19 12:33 Dose: 0.125 mg Dextrose/Water (D5w) 1,000 mls @ 0 mls/hr IV .Q0M PRN PRN Reason: Hypoglycemia Lidocaine HCl/Dextrose (Lidocaine 2 Gm/D5w 500 Ml) 500 mls @ 0 mls/hr IVPB INF [facility]; Protocol Last Admin: 07/11/19 01:16 Dose: 500 mls Nitroglycerin/Dextrose (Nitroglycerin 50 Mg/250 Ml Bot) 250 mls @ 0 mls/hr IVPB INF [facility]; Protocol Insulin Glargine 10 units/ (Miscellaneous Medication) 0.1 mls @ 0 mls/hr SC HS [facility] Last Admin: 07/12/19 21:15 Dose: 0.1 mls Levothyroxine Sodium (Synthroid) 75 mcg PO DAILY [facility] Last Admin: 07/13/19 07:24 Dose: 75 mcg Magnesium Hydroxide (Milk Of Magnesium) 30 ml PO DAILYPRN PRN PRN Reason: Constipation Magnesium Oxide (Magnesium Oxide) 400 mg PO DAILY [facility] Morphine Sulfate (Morphine) 4 mg SLOW IVP Q2H PRN PRN Reason: Chest Pain Last Admin: 07/12/19 17:05 Dose: 4 mg Nitroglycerin (Nitrostat) 0.4 mg SL Q5MIN PRN PRN Reason: Chest Pain Ondansetron HCl (Zofran) 4 mg SLOW IVP Q6H PRN PRN Reason: Nausea/Vomiting Last Admin: 07/12/19 11:52 Dose: 4 mg Pantoprazole Sodium (Protonix) 40 mg PO DAILY [facility] Last Admin: 07/13/19 09:00 Dose: 40 mg Polyethylene Glycol (Miralax) 17 gm PO 2100 [facility] Last Admin: 07/12/19 21:15 Dose: 17 gm Potassium Chloride (K-Dur) 20 meq PO BID-WM [facility] Sodium Chloride ([place] Nasal [place] 0.65%) 1 ml EA NARE TID [facility] Last Admin: 07/13/19 09:06 Dose: 1 drop Sodium Chloride (Flush - Normal Saline) 10 ml IVF Q12HR [facility] Last Admin: 07/13/19 09:05 Dose: Not Given Sodium Chloride (Flush - Normal Saline) 10 ml IVF PRN PRN PRN Reason: Saline Flush Vital Signs & Weight: Vital Signs Temp Pulse Ox 07/13/19 07:42 96 07/13/19 04:00 98.2 F Weight 157 lb 3.033 oz I/O: I/O 07/12/19 07/13/19 07/14/19 06:59 06:59 06:59 Intake Total 1149.5 803.7 170 Output Total 800 850 50 Balance 349.5 -46.3 120 - Quality Measures Condition: Atrial Fibrillation/Flutter (hx or current) - Medication Contraindications No Anticoagulant reason: Anticoagulant not tolerated - Physical Exam General: alert & oriented x3, appears well, no apparent distress, speech clear, affect appropriate HEENT: mucus membranes moist, normocephaly Neck: supple neck, midline trachea, no JVD/HJR Cardiology: regular rate and rhythm, no murmur, regular rate Lungs: clear to auscultation, normal breath sounds, no wheeze, rales, rhonchi Neurology: cranial nerve 2-12 intact, grossly intact, no lateralizing findings Abdomen: active bowel sounds, no pulsations/bruits, no hepatosplenomegaly, distended Extremities: dry, strong pulses, warm Skin: device site stable w/o swelling, left sided device - Chadsvasc Risk factors Congestive heart failure: 1 Hypertension: 1 Age >75: 2 Female: 1 Risk Score: 5 - Labs Result Diagrams: 07/10/19 04:01 07/13/19 03:23 - EKG Interpretation EKG Method: Telemetry EKG shows: Sinus rhythm - Device Device: dual, pacemaker Device Result: nodilatronic - Assessment/Plan Assessment/Plan: 1. Torsade-like arrhythmia -in the setting of prolonged QT while on amiodarone - Amiodarone stopped. avoid QT prolonging medications - PPM prevents bradycardia as a provoking factor - replace electrolytes: keep potassium levels over 4, magnesium levels over 2 2. History of recurrent atrial arrhythmias -atrial fibrillation, atrial tachycardia in the past. -Due to renal insufficiency, prolonged QT, history of coronary artery disease , antiarrhythmic choice is though fairly limited. -If recurrent atrial arrhythmias are seen, she may be considered for AV kash ablation. 3. Dual chamber pacemaker 4. History of diastolic heart failure with preserved LVEF on recent echocardiogram and stable coronary status. 5. 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 6. Elevated CHADS-VASC score with age, gender, hypertension, diabetes, coronary vascular disease at 5, not on anticoagulant, had recurrent bleeding on NOACs in the past. PLAN: Keep potassium over 4, magnesium greater than 2, avoid amiodarone and other QT prolonging agents. Lidocaine was weaned off over the weekend. No recurrent Ventricular arrhythmias have been seen. I feel this most likely represents an isolated event in the setting of QT prolongation with amiodarone therapy. Continue to monitor QT/ QTC with daily 12 lead EKG.
--- NOTE | 2019-07-13 15:10 | PDOC.HOSPP ---
- Subjective Encounter Date: 07/13/19 Subjective: Feels a little better. Less abd distention. Less pain. Passed gas and belched a lot. Feels better on her left side. - Objective Vital Signs & Weight: Vital Signs (12 hours) Temp Pulse Ox 07/13/19 07:42 96 07/13/19 04:00 98.2 F Weight Weight 157 lb 3.033 oz Most Recent Monitor Data Heart Rate from ECG 80 NIBP 126/68 NIBP BP-Mean 87 Respiration from ECG 34 SpO2 93 I&O: 07/12/19 07/13/19 07/14/19 06:59 06:59 06:59 Intake Total 1149.5 803.7 170 Output Total 800 850 50 Balance 349.5 -46.3 120 Result Diagrams: 07/10/19 04:01 07/13/19 03:23 Additional Labs: Accuchecks 07/13/19 07/12/19 07/12/19 06:18 21:15 16:57 POC Glucose 170 H 178 H 170 H Hospitalist ROS - Medication Medications: Active Medications Generic Name Dose Route Start Last Admin Trade Name Freq PRN Reason Stop Dose Admin Acetaminophen/Codeine Phosphate 2 tab 07/09/19 08:21 07/13/19 00:37 Tylenol #3 PO 2 tab Q4H PRN Administration Moderate Pain (4-6) Allopurinol 100 mg 07/08/19 09:00 07/13/19 08:59 Zyloprim PO 100 mg BID KELLY Administration Alprazolam 0.25 mg 07/10/19 13:45 07/12/19 21:14 Xanax PO 0.25 mg BIDPRN PRN Administration Anxiety Aspirin 81 mg 07/08/19 09:00 07/13/19 08:59 Ecotrin PO 81 mg DAILY KELLY Administration Coenzyme Q10 200 mg 07/12/19 09:00 07/13/19 09:00 Coenzyme Q10 PO 200 mg DAILY KELLY Administration Cyanocobalamin 1,000 mcg 07/08/19 09:00 07/13/19 09:00 Vitamin B-12 PO 1,000 mcg DAILY KELLY Administration Docusate Sodium 100 mg 07/11/19 09:00 07/13/19 08:59 Colace PO 100 mg BID KELLY Administration Fentanyl 25 mcg 07/11/19 08:30 07/11/19 09:38 Duragesic TD 25 mcg Q3D KELLY Administration Furosemide 40 mg 07/09/19 09:00 07/13/19 09:00 Lasix PO 40 mg 0900,1400 KELLY Administration Guaifenesin 100 mg 07/11/19 01:23 07/11/19 01:36 Robitussin Sf PO 100 mg Q4H PRN Administration Cough Hyoscyamine Sulfate 0.125 mg 07/12/19 11:44 07/12/19 12:33 Levsin Sl PO 0.125 mg Q4H PRN Administration Abdominal Distention Lidocaine HCl/Dextrose 500 mls @ 0 mls/hr 07/09/19 08:30 07/11/19 01:16 Lidocaine 2 Gm/D5w 500 Ml IVPB 500 mls INF KELLY Administration Protocol Titrate Insulin Glargine 10 units/ 0.1 mls @ 0 mls/hr 07/11/19 21:00 07/12/19 21:15 Miscellaneous Medication SC 0.1 mls HS KELLY Administration Levothyroxine Sodium 75 mcg 07/08/19 09:00 07/13/19 07:24 Synthroid PO 75 mcg DAILY KELLY Administration Morphine Sulfate 4 mg 07/11/19 08:23 07/12/19 17:05 Morphine SLOW IVP 4 mg Q2H PRN Administration Chest Pain Ondansetron HCl 4 mg 07/10/19 04:48 07/12/19 11:52 Zofran SLOW IVP 4 mg Q6H PRN Administration Nausea/Vomiting Pantoprazole Sodium 40 mg 07/12/19 09:00 07/13/19 09:00 Protonix PO 40 mg DAILY KELLY Administration Polyethylene Glycol 17 gm 07/12/19 21:00 07/12/19 21:15 Miralax PO 17 gm 2100 KELLY Administration Sodium Chloride 1 ml 07/08/19 15:00 07/13/19 09:06 [place] Nasal [place] 0.65% EA NARE 1 drop TID KELLY Administration Sodium Chloride 10 ml 07/12/19 09:00 07/13/19 09:05 Flush - Normal Saline IVF Not Given Q12HR KELLY - Exam General Appearance: NAD, awake alert Heart: RRR, no murmur, no gallops, no rubs, normal peripheral pulses Respiratory: CTAB, no wheezes, no rales, no ronchi, normal chest expansion, no tachypnea, normal percussion Gastrointestinal: soft, tender to palpation (Mildly diffusely.), distended ( Mildly.) Extremities: no cyanosis, no clubbing, no edema Skin: normal turgor Neurological: no focal deficits Musculoskeletal: generalized weakness Psychiatric: normal affect, normal behavior, A&O x 3 Hosp A/P (1) Torsades de pointes Code(s): I47.2 - VENTRICULAR TACHYCARDIA Status: Acute (2) Atrial flutter Code(s): I48.92 - UNSPECIFIED ATRIAL FLUTTER Status: Chronic (3) CAD (coronary artery disease) Code(s): I25.10 - ATHSCL HEART DISEASE OF [place] CORONARY ARTERY W/O ANG PCTRS Status: Chronic Qualifiers: Qualified Code(s): I25.810 - Atherosclerosis of coronary artery bypass graft( s) without angina pectoris (4) Diabetes type 2, controlled Code(s): E11.9 - TYPE 2 DIABETES MELLITUS WITHOUT COMPLICATIONS Status: Chronic Qualifiers: Qualified Code(s): E11.9 - Type 2 diabetes mellitus without complications; Z79.4 - USP (current) use of insulin (5) HLD (hyperlipidemia) Code(s): E78.5 - HYPERLIPIDEMIA, UNSPECIFIED Status: Chronic Qualifiers: Qualified Code(s): E78.00 - Pure hypercholesterolemia, unspecified; E78.0 - Pure hypercholesterolemia (6) Hypothyroidism Code(s): E03.9 - HYPOTHYROIDISM, UNSPECIFIED Status: Chronic Qualifiers: Qualified Code(s): E03.9 - Hypothyroidism, unspecified (7) Gaseous abdominal distention Code(s): R14.0 - ABDOMINAL DISTENSION (GASEOUS) Status: Acute - Plan Torsades: Patient has been seen by cardiology and by electrophysiology. She is off of amiodarone and lidocaine. She is currently in a paced rhythm. Continuing to maintain her electrolytes within the abundantly normal range. Magnesium and potassium oral supplementation have been ordered. Transfer to telemetry. Hypertension: Resume home meds Hypothyroidism: Continue home levothyroxine dose. Diabetes mellitus type 2: Resume the patient's subcu Lantus nightly. Gaseous abdominal distention: Strongly encouraged the patient to get out of bed up to a chair today. Will have physical therapy try to get her up as well today. I believe this will help mobilize the gas for her. She belched several times during our discussion and I believe that would be helpful. Will provide some Levsin as needed. Cathartics have been added with magnesium.
[2019-07-13] MEDS: Ondansetron PF 4 MG/2 ML Vial SLOW IVP PRN ×2 (15:41→20:13)
--- NOTE | 2019-07-13 18:00 | PRG ---
DATE OF SERVICE: 07/13/2019 SUBJECTIVE: Valorie Pearson remains stable. OBJECTIVE: VITAL SIGNS: Heart rate is 80, blood pressure 126/68, respiratory rates in the 20s. LUNGS: Unchanged. HEART: Unchanged. ABDOMEN: Unchanged. LABORATORY DATA: Sodium 138, potassium 3.3, chloride 97, bicarb 30, BUN 37, and creatinine 1.09. ASSESSMENT AND PLAN: She was seen by the garment finisher today. He still believes that she had torsade like ventricular tachycardia with prolonged QT interval on amiodarone. The amiodarone has been stopped. She continues to be paced at a higher rate (80). Overall, she appears to be stable. Job ID: [id number]
[2019-07-13] MEDS: Polyethylene Glycol 3350 17 GM Packet PO SCH (20:32)
[2019-07-13] MEDS: Insulin Glargine 10 UNITS in Pre-Filled Syringe SC SCH (20:46)
[2019-07-13] MEDS: Morphine 2 MG/ML SYRINGE SLOW IVP PRN (23:53)
[2019-07-14] MEDS: Ondansetron PF 4 MG/2 ML Vial SLOW IVP PRN ×3 (00:09→16:07)
[2019-07-14] MEDS: Hyoscyamine Sulfate SL 0.125 mg Tablet PO PRN ×2 (00:09→17:28)
--- NOTE | 2019-07-14 01:06 | PDOC.EVN ---
Event Note - Event Note Event Note: Notified by RN, re: concern with abdominal distention. Patient with some discomfort and persistent belching. No bowel movement x 3 days. Patient without any vomiting. KUB obtained, appears to have ileus/gas distention as previously mentioned on note from primary team today. Patient has been started on Levsin also advised to get up to chair. Per RN, patient refusing. PT/OT consulted to encourage ambulation. Patient stable and in no acute distress. continue to monitor.
[2019-07-14 05:11] LABS: Anion Gap 15 mmol/L (10-20); BUN (Urea Nitrogen) 37 mg/dL (9.8-20.1); Calc. Creatinine Clearance 44 mL/min (70-130); Calcium 9.2 mg/dL (7.8-10.44); Carbon Dioxide 28 mmol/L (23-31); Chloride 99 mmol/L (98-107); Estimated GFR-MDRD 48; Glucose 146 mg/dL (83-110); Magnesium 1.9 mg/dL (1.6-2.6); Potassium 3.8 mmol/L (3.5-5.1); Sodium 138 mmol/L (136-145)
[2019-07-14] MEDS ORDERED: Potassium Chloride 20 MEQ TAB PO SCH (07:15)
[2019-07-14] MEDS: Ubidecarenone 50 MG CAP PO SCH (09:09)
[2019-07-14] MEDS: Cyanocobalamin (Vitamin B-12) 1,000 MCG TAB PO SCH (09:09)
[2019-07-14] MEDS: Furosemide 20 MG TAB PO SCH ×2 (09:09→14:04)
[2019-07-14] MEDS: Allopurinol 100 MG TAB PO SCH ×2 (09:09→20:27)
[2019-07-14] MEDS: Aspirin 81 mg Enteric Coated Tablet PO SCH (09:09)
[2019-07-14] MEDS: Docusate 100 MG CAP PO SCH ×2 (09:10→20:27)
[2019-07-14] MEDS: Levothyroxine Sodium 75 MCG TAB PO SCH (09:10)
[2019-07-14] MEDS: Magnesium Oxide 400 MG TAB PO SCH (09:10)
[2019-07-14] MEDS: Potassium Chloride 20 MEQ TAB PO SCH ×2 (09:43→16:07)
[2019-07-14] MEDS: traMADol HCl 50 MG TAB PO PRN ×2 (09:43→14:12)
[2019-07-14] MEDS: Sodium Chloride 0.65% Nasal 44 ML BOT EA NARE SCH ×3 (09:52→20:26)
--- NOTE | 2019-07-14 10:07 | PRG ---
DATE OF SERVICE: 07/14/2019 SUBJECTIVE: Ms. Pearson' only complaints are nausea. OBJECTIVE: VITAL SIGNS: She is afebrile. Heart rate is 80, respiratory rate 14, oximetry is 95% on nasal cannula, blood pressure 125/59. LUNGS: Clear. HEART: Regular rhythm. ABDOMEN: Soft. LABORATORY DATA: Sodium 138, potassium 3.8, chloride 99, bicarb 28, BUN 37, creatinine 1.08. IMPRESSION: 1. Ventricular tachycardia, felt to be secondary to a prolonged QT interval associated with amiodarone. 2. Sternal and rib fractures. 3. Ileus. She has diffuse colon and small bowel. Nonspecific gas pattern. I have stopped her opiates. I have asked Gastroenterology to see her since this is her primary complaint. 4. Deconditioning. She is encouraged to sit in a chair this afternoon. 5. Poor p.o. intake. Ensure would be helpful if we can get some bowel motility. 6. History of pulmonary embolism in the past. 7. History of cardiomyopathy. 8. History of valve replacement. 9. Pacemaker in place with elevated rate pacing to hopefully minimize the risk of recurrent ventricular tachycardia. 10. History of atrial fibrillation. 11. History of chronic obstructive pulmonary disease, this is not a clinical problem at this time. We will continue to follow. Job ID: [id number]
--- NOTE | 2019-07-14 10:43 | RAD ---
SINGLE VIEW OF THE ABDOMEN: COMPARISON: None. HISTORY: Abdominal distention and pain. FINDINGS: Single view of the abdomen shows multiple air-filled loops of bowel. The majority of these air-fille d loops are colon, although some of these loops that are air-filled are small bowel. Air is seen in the left colon to the level of the rectum. IMPRESSION: Nonspecific bowel gas pattern. POS: EAA
--- NOTE | 2019-07-14 10:48 | PDOC.EP ---
- Subjective Date: 07/14/19 Time: 10:45 Interval History: follow-up for ventricular arrhythmias, QT prolongation and ICD management. patient feels well. She still reporting some gas but less severe than yesterday. She voices no cardiac concerns or complaints. - Review of Systems Constitutional: denies: chills, fever, sweats, weakness Respiratory: denies: cough, dry, hemoptysis, pleuritic pain, shortness of breath , SOB with excertion, sputum, wheezing Cardiology: denies: chest pain, edema, heart racing, light headedness, orthopnea , paroxysmal noc. dyspnea, palpitations, passing out, pleuritic pain, pressure, swelling - Objective Allergies/Adverse Reactions: Allergies Allergy/AdvReac Type Severity Reaction Status Date / Time nitrofurantoin Allergy Rash Verified 07/08/19 02:32 penicillin V Allergy Rash Verified 07/08/19 02:32 Penicillins Allergy Rash Verified 07/08/19 02:32 pentazocine Allergy HALLUCINATI Verified 07/08/19 02:32 ONS pentazocine lactate Allergy Verified 07/08/19 02:32 [From Talwin] prednisone Allergy Verified 07/08/19 02:32 rivaroxaban [From Xarelto] Allergy Verified 07/08/19 02:32 simvastatin [From Zocor] Allergy Verified 07/08/19 02:32 MYCINS Allergy Uncoded 07/08/19 02:32 Current Medications Acetaminophen/Codeine Phosphate (Tylenol #3) 1 tab PO Q4H PRN PRN Reason: Mild Pain (1-3) Acetaminophen/Codeine Phosphate (Tylenol #3) 2 tab PO Q4H PRN PRN Reason: Moderate Pain (4-6) Last Admin: 07/13/19 20:05 Dose: 2 tab Allopurinol (Zyloprim) 100 mg PO BID [facility] Last Admin: 07/14/19 09:09 Dose: 100 mg Alprazolam (Xanax) 0.25 mg PO BIDPRN PRN PRN Reason: Anxiety Last Admin: 07/12/19 21:14 Dose: 0.25 mg Aspirin (Ecotrin) 81 mg PO DAILY [facility] Last Admin: 07/14/19 09:09 Dose: 81 mg Coenzyme Q10 (Coenzyme Q10) 200 mg PO DAILY [facility] Last Admin: 07/14/19 09:09 Dose: 200 mg Cyanocobalamin (Vitamin B-12) 1,000 mcg PO DAILY [facility] Last Admin: 07/14/19 09:09 Dose: 1,000 mcg Dextrose/Water (Dextrose 50%) 25 gm SLOW IVP PRN PRN PRN Reason: Hypoglycemia Docusate Sodium (Colace) 100 mg PO BID [facility] Last Admin: 07/14/19 09:10 Dose: 100 mg Furosemide (Lasix) 40 mg PO 0900,1400 [facility] Last Admin: 07/14/19 09:09 Dose: 40 mg Glucagon (Glucagon) 1 mg IM PRN PRN PRN Reason: Hypoglycemia Guaifenesin (Robitussin Sf) 100 mg PO Q4H PRN PRN Reason: Cough Last Admin: 07/11/19 01:36 Dose: 100 mg Hyoscyamine Sulfate (Levsin Sl) 0.125 mg PO Q4H PRN PRN Reason: Abdominal Distention Last Admin: 07/14/19 00:09 Dose: 0.125 mg Dextrose/Water (D5w) 1,000 mls @ 0 mls/hr IV .Q0M PRN PRN Reason: Hypoglycemia Lidocaine HCl/Dextrose (Lidocaine 2 Gm/D5w 500 Ml) 500 mls @ 0 mls/hr IVPB INF [facility]; Protocol Last Admin: 07/11/19 01:16 Dose: 500 mls Nitroglycerin/Dextrose (Nitroglycerin 50 Mg/250 Ml Bot) 250 mls @ 0 mls/hr IVPB INF [facility]; Protocol Insulin Glargine 10 units/ (Miscellaneous Medication) 0.1 mls @ 0 mls/hr SC [facility] Last Admin: 07/13/19 20:46 Dose: 0.1 mls Levothyroxine Sodium (Synthroid) 75 mcg PO DAILY [facility] Last Admin: 07/14/19 09:10 Dose: 75 mcg Magnesium Hydroxide (Milk Of Magnesium) 30 ml PO DAILYPRN PRN PRN Reason: Constipation Magnesium Oxide (Magnesium Oxide) 400 mg PO DAILY [facility] Last Admin: 07/14/19 09:10 Dose: 400 mg Magnesium Oxide (Magnesium Oxide) 400 mg PO 1400 [facility] Stop: 07/14/19 16:00 Nitroglycerin (Nitrostat) 0.4 mg SL Q5MIN PRN PRN Reason: Chest Pain Ondansetron HCl (Zofran) 4 mg SLOW IVP Q6H PRN PRN Reason: Nausea/Vomiting Last Admin: 07/14/19 09:10 Dose: 4 mg Pantoprazole Sodium (Protonix) 40 mg PO DAILY [facility] Last Admin: 07/14/19 09:10 Dose: 40 mg Polyethylene Glycol (Miralax) 17 gm PO 2100 [facility] Last Admin: 07/13/19 20:32 Dose: Not Given Potassium Chloride (K-Dur) 20 meq PO BID-WM [facility] Last Admin: 07/14/19 09:43 Dose: Not Given Sodium Chloride ([place] Nasal [place] 0.65%) 1 ml EA NARE TID [facility] Last Admin: 07/14/19 09:52 Dose: Not Given Sodium Chloride (Flush - Normal Saline) 10 ml IVF Q12HR [facility] Last Admin: 07/14/19 09:10 Dose: 10 ml Sodium Chloride (Flush - Normal Saline) 10 ml IVF PRN PRN PRN Reason: Saline Flush Tramadol HCl (Ultram) 50 mg PO Q4H PRN PRN Reason: Moderate Pain (4-6) Last Admin: 07/14/19 09:43 Dose: 50 mg Vital Signs & Weight: Vital Signs Temp Pulse Resp BP BP Pulse Ox 07/14/19 07:20 97.9 F 80 14 125/59 L 95 07/14/19 06:54 95 07/14/19 03:22 97.7 F 85 19 136/83 95 07/13/19 23:34 98.1 F 77 20 151/66 H 94 L Weight 157 lb 3.033 oz I/O: I/O 07/13/19 07/14/19 07/15/19 06:59 06:59 06:59 Intake Total 803.7 900 Output Total 850 675 Balance -46.3 225 - Quality Measures Condition: Atrial Fibrillation/Flutter (hx or current) - Medication Contraindications No Anticoagulant reason: Anticoagulant not tolerated - Physical Exam General: alert & oriented x3, appears well, no apparent distress, speech clear, affect appropriate HEENT: mucus membranes moist, normocephaly Neck: supple neck Cardiology: regular rate and rhythm, no murmur, regular rate, regular rhythm, PMI nondisplaced Lungs: clear to auscultation, normal breath sounds, normal exam, no wheeze, rales, rhonchi, no wheezes, no rales, no rhonchi - Labs Result Diagrams: 07/10/19 04:01 07/14/19 04:32 - EKG Interpretation EKG Method: 12 Lead (QTc 537) EKG shows: Sinus rhythm - Assessment/Plan Assessment/Plan: 1. Torsade-like arrhythmia -in the setting of prolonged QT while on amiodarone - Amiodarone stopped. avoid QT prolonging medications - PPM prevents bradycardia as a provoking factor - replace electrolytes: keep potassium levels over 4, magnesium levels over 2 -QT/QTc 07/12: 530/619 07/13: 466/537 2. History of recurrent atrial arrhythmias -atrial fibrillation, atrial tachycardia in the past. -Due to renal insufficiency, prolonged QT, history of coronary artery disease , antiarrhythmic choice is though fairly limited. -If recurrent atrial arrhythmias are seen, she may be considered for AV kash ablation. 3. Dual chamber pacemaker 4. History of diastolic heart failure with preserved LVEF on recent echocardiogram and stable coronary status. 5. 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 6. Elevated CHADS-VASC score with age, gender, hypertension, diabetes, coronary vascular disease at 5, not on anticoagulant, had recurrent bleeding on NOACs in the past. PLAN: Keep potassium over 4, magnesium greater than 2, avoid amiodarone and other QT prolonging agents. No recurrent Ventricular arrhythmias have been seen. I feel this most likely represents an isolated event in the setting of QT prolongation with amiodarone therapy. Continue to monitor QT/ QTC with daily 12 lead EKG. QT/QTc is improving. So far she is maintaining SR but amidarone will require time to washout. Continue beta adri or calcium channel adri therapy. She tolerated multaq well in the past but it can also cause QT prolongation and I would refrain from starting it at this time.
[2019-07-14] MEDS ORDERED: Magnesium Oxide 400 MG TAB PO SCH (14:00)
--- NOTE | 2019-07-14 15:13 | PDOC.HOSPP ---
- Subjective Encounter Date: 07/14/19 Subjective: Continues to have significant gas bloat. Very uncomfortable. Has not been up on her feet since she was admitted. Has been resistant, but will today. She in concerned that she may get SOB because of the abd distention. Has been belching some. Feels like she needs to pass gas, but cannot generate abd pressure to do so because it causes discomfort in the chest area when she tries. - Objective Vital Signs & Weight: Vital Signs (12 hours) Temp Pulse Resp BP BP Pulse Ox 07/14/19 15:04 98.1 F 81 20 152/68 H 96 07/14/19 11:15 97.8 F 75 16 116/56 L 95 07/14/19 07:20 97.9 F 80 14 125/59 L 95 07/14/19 06:54 95 07/14/19 03:22 97.7 F 85 19 136/83 95 Weight Weight 157 lb 3.033 oz Most Recent Monitor Data Heart Rate from ECG 82 NIBP 125/76 NIBP BP-Mean 92 Respiration from ECG 22 SpO2 96 I&O: 07/13/19 07/14/19 07/15/19 06:59 06:59 06:59 Intake Total 803.7 900 Output Total 850 675 Balance -46.3 225 Result Diagrams: 07/10/19 04:01 07/14/19 04:32 Additional Labs: Accuchecks 07/14/19 07/14/19 07/13/19 12:21 05:51 20:44 POC Glucose 143 H 134 H 147 H 07/13/19 18:31 POC Glucose 154 H Hospitalist ROS - Medication Medications: Active Medications Generic Name Dose Route Start Last Admin Trade Name Freq PRN Reason Stop Dose Admin Acetaminophen/Codeine Phosphate 2 tab 07/09/19 08:21 07/13/19 20:05 Tylenol #3 PO 2 tab Q4H PRN Administration Moderate Pain (4-6) Allopurinol 100 mg 07/08/19 09:00 07/14/19 09:09 Zyloprim PO 100 mg BID KELLY Administration Alprazolam 0.25 mg 07/10/19 13:45 07/12/19 21:14 Xanax PO 0.25 mg BIDPRN PRN Administration Anxiety Aspirin 81 mg 07/08/19 09:00 07/14/19 09:09 Ecotrin PO 81 mg DAILY KELLY Administration Coenzyme Q10 200 mg 07/12/19 09:00 07/14/19 09:09 Coenzyme Q10 PO 200 mg DAILY KELLY Administration Cyanocobalamin 1,000 mcg 07/08/19 09:00 07/14/19 09:09 Vitamin B-12 PO 1,000 mcg DAILY KELLY Administration Docusate Sodium 100 mg 07/11/19 09:00 07/14/19 09:10 Colace PO 100 mg BID KELLY Administration Furosemide 40 mg 07/09/19 09:00 07/14/19 14:04 Lasix PO 40 mg 0900,1400 KELLY Administration Guaifenesin 100 mg 07/11/19 01:23 07/11/19 01:36 Robitussin Sf PO 100 mg Q4H PRN Administration Cough Hyoscyamine Sulfate 0.125 mg 07/12/19 11:44 07/14/19 00:09 Levsin Sl PO 0.125 mg Q4H PRN Administration Abdominal Distention Lidocaine HCl/Dextrose 500 mls @ 0 mls/hr 07/09/19 08:30 07/11/19 01:16 Lidocaine 2 Gm/D5w 500 Ml IVPB 500 mls INF KELLY Administration Protocol Titrate Insulin Glargine 10 units/ 0.1 mls @ 0 mls/hr 07/11/19 21:00 07/13/19 20:46 Miscellaneous Medication SC 0.1 mls HS KELLY Administration Levothyroxine Sodium 75 mcg 07/08/19 09:00 07/14/19 09:10 Synthroid PO 75 mcg DAILY KELLY Administration Magnesium Oxide 400 mg 07/14/19 09:00 07/14/19 09:10 Magnesium Oxide PO 400 mg DAILY KELLY Administration Magnesium Oxide 400 mg 07/14/19 14:00 07/14/19 14:04 Magnesium Oxide PO 07/14/19 16:00 400 mg 1400 KELLY Administration Ondansetron HCl 4 mg 07/10/19 04:48 07/14/19 09:10 Zofran SLOW IVP 4 mg Q6H PRN Administration Nausea/Vomiting Pantoprazole Sodium 40 mg 07/12/19 09:00 07/14/19 09:10 Protonix PO 40 mg DAILY KELLY Administration Polyethylene Glycol 17 gm 07/12/19 21:00 07/13/19 20:32 Miralax PO Not Given 2100 KELLY Potassium Chloride 20 meq 07/13/19 17:00 07/14/19 09:43 K-Dur PO Not Given BID-WM KELLY Sodium Chloride 1 ml 07/08/19 15:00 07/14/19 14:20 [place] Nasal [place] 0.65% EA NARE Not Given TID KELLY Sodium Chloride 10 ml 07/12/19 09:00 07/14/19 09:10 Flush - Normal Saline IVF 10 ml Q12HR KELLY Administration Tramadol HCl 50 mg 07/14/19 09:21 07/14/19 14:12 Ultram PO 50 mg Q4H PRN Administration Moderate Pain (4-6) - Exam General Appearance: NAD General - other findings: Uncomfortable Heart: RRR, no murmur, no gallops, no rubs, normal peripheral pulses Respiratory: CTAB, no wheezes, no rales, no ronchi, normal chest expansion, no tachypnea, normal percussion Gastrointestinal: normal bowel sounds, tender to palpation, distended Gastrointestinal - other findings: Hyper-resonant to percussion. Extremities: no cyanosis, no clubbing, no edema Neurological: no focal deficits Musculoskeletal: normal tone, generalized weakness Psychiatric: normal affect, normal behavior, A&O x 3 Hosp A/P (1) Torsades de pointes Code(s): I47.2 - VENTRICULAR TACHYCARDIA Status: Acute (2) Atrial flutter Code(s): I48.92 - UNSPECIFIED ATRIAL FLUTTER Status: Chronic (3) CAD (coronary artery disease) Code(s): I25.10 - ATHSCL HEART DISEASE OF [place] CORONARY ARTERY W/O ANG PCTRS Status: Chronic Qualifiers: Coronary Disease-Associated Artery/Lesion type: bypass graft [place] vs. transplanted heart: [place] heart Associated angina: without angina Qualified Code(s): I25.810 - Atherosclerosis of coronary artery bypass graft(s) without angina pectoris (4) Diabetes type 2, controlled Code(s): E11.9 - TYPE 2 DIABETES MELLITUS WITHOUT COMPLICATIONS Status: Chronic Qualifiers: Diabetes mellitus superintendent [employer] insulin use: with senior care use Diabetes mellitus complication status: without complication Qualified Code(s): E11.9 - Type 2 diabetes mellitus without complications; Z79.4 - extermination supervisor (current) use of insulin (5) HLD (hyperlipidemia) Code(s): E78.5 - HYPERLIPIDEMIA, UNSPECIFIED Status: Chronic Qualifiers: Hyperlipidemia type: pure hypercholesterolemia Qualified Code(s): E78.00 - Pure hypercholesterolemia, unspecified; E78.0 - Pure hypercholesterolemia (6) Hypothyroidism Code(s): E03.9 - HYPOTHYROIDISM, UNSPECIFIED Status: Chronic Qualifiers: Hypothyroidism type: unspecified Qualified Code(s): E03.9 - Hypothyroidism , unspecified (7) Gaseous abdominal distention Code(s): R14.0 - ABDOMINAL DISTENSION (GASEOUS) Status: Acute - Plan Torsades: Patient has been seen by cardiology and by electrophysiology. Attributed to the amiodarone. She is currently in a paced rhythm. Continuing to maintain her electrolytes within the abundantly normal range. Magnesium and potassium oral supplementation have been ordered. Daily EKG monitoring of the QT interval. Improving, but slow to metabolize away the amio. Hypertension: Resume home meds Hypothyroidism: Continue home levothyroxine dose. Diabetes mellitus type 2: Resume the patient's subcu Lantus nightly. Gaseous abdominal distention: Abd x-ray with diffuse distention/gas. Opioids have been DC'd to avoid worsening the situation. Librium no help. Encouraged ambulation as tolerated. PT consult to help with that. GI consulted.
[2019-07-14] MEDS: Insulin Glargine 10 UNITS in Pre-Filled Syringe SC SCH (20:26)
[2019-07-14] MEDS: Polyethylene Glycol 3350 17 GM Packet PO SCH (20:27)
--- NOTE | 2019-07-14 22:59 | CON ---
DATE OF CONSULTATION: 07/14/2019 CHIEF COMPLAINT: Abdominal distention and discomfort. HISTORY OF PRESENT ILLNESS: Ms. Pearson is an 83-year-old woman, who was admitted with cardiac arrest and torsades de pointes secondary to amiodarone. She received CPR, and had sternal and rib fractures associated with that. Her heart has done well since then. However, she has had significant pain associated with her fractures and she has been very still. It hurts to breathe. She has received opioid pain medication and she has had gradually worsening abdominal distention to the point that this is now making it difficult to breathe and she is uncomfortable and the last intake was just some Jell-O by mouth a couple of nights ago. She has had no bowel movement for few days. She has been given osmotic laxatives without help so far. She is having no vomiting or nausea. No blood in the stool. She had upper and lower endoscopy back [place] [address] Dave. She had three small adenomas removed from her colon. She had some gastric polyps noted that were benign. PAST MEDICAL HISTORY: Coronary artery disease, pulmonary embolism, history of chronic renal insufficiency, hypothyroidism, possible COPD. PAST SURGICAL HISTORY: Coronary artery bypass graft, cataract surgery, bladder suspension, mitral valve replacement x2. SOCIAL HISTORY: She quit smoking in the past. No alcohol or drugs. FAMILY HISTORY: Negative for GI malignancy. ALLERGIES: NITROFURANTOIN, PENICILLIN, PREDNISONE, SIMVASTATIN, MYCINS, XARELTO. CURRENT INPATIENT MEDICATIONS: Include: 1. Coenzyme Q10. 2. Tramadol. 3. Polyethylene glycol. 4. Pantoprazole. 5. Magnesium oxide. 6. Levothyroxine. 7. Hyoscyamine. 8. She had been on fentanyl, which is currently discontinued. Morphine is also discontinued today. 9. Aspirin. 10. Alprazolam. 11. Allopurinol. REVIEW OF SYSTEMS: Negative x10 systems reviewed except as stated in the history of present illness. PHYSICAL EXAMINATION: VITAL SIGNS: Temperature 97.7, pulse 81, blood pressure 151/65. GENERAL: She is in no acute distress. Alert and oriented x3. HEENT: Eyes have no scleral icterus. Oropharynx is clear without lesions. No cervical or supraclavicular lymphadenopathy. LUNGS: Clear to auscultation bilaterally. HEART: Regular rate and rhythm without murmur. ABDOMEN: Distended. She has high-pitched bowel sounds, but they are present. She has minimal tenderness to palpation that is uncomfortable. She has no lower extremity edema. Cranial nerves are grossly intact. LABORATORY DATA: White blood cell count 11.0, hemoglobin 12.1, platelets 121. Creatinine 1.08, magnesium 1.9, bilirubin 0.8, AST 19, ALT 8, alkaline phosphatase 119, albumin 4.0. IMAGING: She had an abdominal x-ray today that shows significant dilation of air filled loops of colon and small bowel. IMPRESSION: Marion syndrome/colonic pseudo obstruction. This is largely secondary to immobility as it hurts to move with her rib fractures and also opioid pain medications. Her opioids were stopped today other than the tramadol. RECOMMENDATIONS: 1. I performed digital rectal exam and assisted her to expel significant amount of air. We will repeat this with nursing staff to perform digital stimulation three times a day. 2. I will hold the osmotic laxatives for now as this might worsen the abdominal distention. Instead will give Dulcolax suppositories. 3. I will add Relistor subcutaneously in light of the ongoing use of tramadol. 4. Discontinue hyoscyamine. 5. Encourage ambulation when she is able to at least work with Physical Therapy. 6. She is a poor candidate for neostigmine given her cardiopulmonary status. Colonoscopy I think will not be necessary, also I would want to avoid any kind of anesthesia at this point. Metoclopramide could prolong the QT interval and we will avoid this as well. 7. If she fails to show significant improvement over the next day or two, then I would also place an NG tube to suction. She would rather avoid this for now. 8. Keep her n.p.o. for now. IV fluids per the primary service. Job ID: [id number]
[2019-07-14] MEDS: Methylnaltrexone 12 MG/0.6 ML VIAL SC SCH (23:31)
[2019-07-15 05:03] LABS: Anion Gap 14 mmol/L (10-20); BUN (Urea Nitrogen) 43 mg/dL (9.8-20.1); Calc. Creatinine Clearance 37 mL/min (70-130); Calcium 9.1 mg/dL (7.8-10.44); Carbon Dioxide 29 mmol/L (23-31); Chloride 97 mmol/L (98-107); Estimated GFR-MDRD 40; Glucose 137 mg/dL (83-110); Magnesium 1.9 mg/dL (1.6-2.6); Potassium 4.3 mmol/L (3.5-5.1); Sodium 136 mmol/L (136-145)
[2019-07-15] MEDS: Potassium Chloride 20 MEQ TAB PO SCH (08:47)
[2019-07-15] MEDS: Allopurinol 100 MG TAB PO SCH ×2 (08:51→22:11)
[2019-07-15] MEDS: Aspirin 81 mg Enteric Coated Tablet PO SCH (08:51)
[2019-07-15] MEDS: Levothyroxine Sodium 75 MCG TAB PO SCH (08:52)
[2019-07-15] MEDS: Cyanocobalamin (Vitamin B-12) 1,000 MCG TAB PO SCH (08:52)
[2019-07-15] MEDS: Magnesium Oxide 400 MG TAB PO SCH (08:52)
[2019-07-15] MEDS: Furosemide 20 MG TAB PO SCH ×2 (08:52→15:04)
[2019-07-15] MEDS: Bisacodyl 10 MG SUPP PR SCH ×2 (08:52→22:11)
[2019-07-15] MEDS: Sodium Chloride 0.65% Nasal 44 ML BOT EA NARE SCH ×3 (08:53→22:13)
[2019-07-15] MEDS: Ubidecarenone 50 MG CAP PO SCH (08:53)
--- NOTE | 2019-07-15 10:38 | PDOC.EP ---
- Subjective Date: 07/15/19 Time: 08:00 Interval History: denies cardiac concerns or complaints today. She does continue to voice discomfort from gas and bloating - Review of Systems Respiratory: reports: shortness of breath. denies: cough, hemoptysis, sputum, wheezing Cardiology: denies: chest pain, heart racing, light headedness, palpitations, passing out Gastrointestinal: reports: abdominal pain, nausea. denies: constipation Musculoskeletal: denies: falls, neck pain, arm pain, leg pain - Objective Allergies/Adverse Reactions: Allergies Allergy/AdvReac Type Severity Reaction Status Date / Time nitrofurantoin Allergy Rash Verified 07/08/19 02:32 penicillin V Allergy Rash Verified 07/08/19 02:32 Penicillins Allergy Rash Verified 07/08/19 02:32 pentazocine Allergy HALLUCINATI Verified 07/08/19 02:32 ONS pentazocine lactate Allergy Verified 07/08/19 02:32 [From Talwin] prednisone Allergy Verified 07/08/19 02:32 rivaroxaban [From Xarelto] Allergy Verified 07/08/19 02:32 simvastatin [From Zocor] Allergy Verified 07/08/19 02:32 MYCINS Allergy Uncoded 07/08/19 02:32 Current Medications Acetaminophen/Codeine Phosphate (Tylenol #3) 1 tab PO Q4H PRN PRN Reason: Mild Pain (1-3) Acetaminophen/Codeine Phosphate (Tylenol #3) 2 tab PO Q4H PRN PRN Reason: Moderate Pain (4-6) Last Admin: 07/13/19 20:05 Dose: 2 tab Allopurinol (Zyloprim) 100 mg PO BID [facility] Last Admin: 07/15/19 08:51 Dose: 100 mg Alprazolam (Xanax) 0.25 mg PO BIDPRN PRN PRN Reason: Anxiety Last Admin: 07/12/19 21:14 Dose: 0.25 mg Aspirin (Ecotrin) 81 mg PO DAILY [facility] Last Admin: 07/15/19 08:51 Dose: 81 mg Bisacodyl (Dulcolax) 10 mg IN BID [facility] Last Admin: 07/15/19 08:52 Dose: 10 mg Coenzyme Q10 (Coenzyme Q10) 200 mg PO DAILY [facility] Last Admin: 07/15/19 08:53 Dose: 200 mg Cyanocobalamin (Vitamin B-12) 1,000 mcg PO DAILY [facility] Last Admin: 07/15/19 08:52 Dose: Not Given Dextrose/Water (Dextrose 50%) 25 gm SLOW IVP PRN PRN PRN Reason: Hypoglycemia Furosemide (Lasix) 40 mg PO 0900,1400 [facility] Last Admin: 07/15/19 08:52 Dose: 40 mg Glucagon (Glucagon) 1 mg IM PRN PRN PRN Reason: Hypoglycemia Guaifenesin (Robitussin Sf) 100 mg PO Q4H PRN PRN Reason: Cough Last Admin: 07/11/19 01:36 Dose: 100 mg Dextrose/Water (D5w) 1,000 mls @ 0 mls/hr IV .Q0M PRN PRN Reason: Hypoglycemia Lidocaine HCl/Dextrose (Lidocaine 2 Gm/D5w 500 Ml) 500 mls @ 0 mls/hr IVPB INF [facility]; Protocol Last Admin: 07/11/19 01:16 Dose: 500 mls Nitroglycerin/Dextrose (Nitroglycerin 50 Mg/250 Ml Bot) 250 mls @ 0 mls/hr IVPB INF [facility]; Protocol Insulin Glargine 10 units/ (Miscellaneous Medication) 0.1 mls @ 0 mls/hr SC HS [facility] Last Admin: 07/14/19 20:26 Dose: 0.1 mls Levothyroxine Sodium (Synthroid) 75 mcg PO DAILY [facility] Last Admin: 07/15/19 08:52 Dose: 75 mcg Magnesium Hydroxide (Milk Of Magnesium) 30 ml PO DAILYPRN PRN PRN Reason: Constipation Magnesium Oxide (Magnesium Oxide) 400 mg PO DAILY [facility] Last Admin: 07/15/19 08:52 Dose: Not Given Methylnaltrexone [place] (Relistor) 12 mg SC Q48H [facility] Last Admin: 07/14/19 23:31 Dose: 12 mg Nitroglycerin (Nitrostat) 0.4 mg SL Q5MIN PRN PRN Reason: Chest Pain Ondansetron HCl (Zofran) 4 mg SLOW IVP Q6H PRN PRN Reason: Nausea/Vomiting Last Admin: 07/14/19 16:07 Dose: 4 mg Pantoprazole Sodium (Protonix) 40 mg PO DAILY [facility] Last Admin: 07/15/19 08:52 Dose: 40 mg Sodium Chloride ([place] Nasal [place] 0.65%) 1 ml EA NARE TID [facility] Last Admin: 07/15/19 08:53 Dose: Not Given Sodium Chloride (Flush - Normal Saline) 10 ml IVF Q12HR [facility] Last Admin: 07/15/19 08:53 Dose: 10 ml Sodium Chloride (Flush - Normal Saline) 10 ml IVF PRN PRN PRN Reason: Saline Flush Tramadol HCl (Ultram) 50 mg PO Q4H PRN PRN Reason: Moderate Pain (4-6) Last Admin: 07/14/19 14:12 Dose: 50 mg Vital Signs & Weight: Vital Signs Temp Pulse Resp BP Pulse Ox 07/15/19 07:40 97.7 F 81 16 136/66 100 07/15/19 03:15 98.2 F 81 18 133/60 97 07/14/19 22:40 97.2 F L 84 18 127/58 L 97 Weight 157 lb 3.033 oz I/O: I/O 07/14/19 07/15/19 07/16/19 06:59 06:59 06:59 Intake Total 900 720 Output Total 675 200 Balance 225 520 - Quality Measures Condition: Atrial Fibrillation/Flutter (hx or current) - Medication Contraindications No Anticoagulant reason: Anticoagulant not tolerated - Physical Exam General: alert & oriented x3, appears well, no apparent distress, speech clear, affect appropriate Neck: midline trachea Cardiology: regular rate and rhythm, PMI nondisplaced Lungs: clear to auscultation, no wheeze, rales, rhonchi Neurology: cranial nerve 2-12 intact, grossly intact, no lateralizing findings Abdomen: tender, distended Extremities: dry, strong pulses, warm Skin: device site stable w/o swelling. negative: bruising, drainage, hematoma, swelling - Labs Result Diagrams: 07/10/19 04:01 07/15/19 04:23 - EKG Interpretation EKG Method: 12 Lead (largely AV paced) - Device Device: dual, defibrillator Device Result: [employer] - Assessment/Plan Assessment/Plan: 1. Torsade-like arrhythmia -in the setting of prolonged QT while on amiodarone - Amiodarone stopped. avoid QT prolonging medications - PPM prevents bradycardia as a provoking factor - replace electrolytes: keep potassium levels over 4, magnesium levels over 2 -QT/QTc 07/12: 530/619 07/13: 466/537 ([place] QRS 100msec) 07/14: 492/571 (RV pacing now seen with QRS 134msec) 2. History of recurrent atrial arrhythmias -atrial fibrillation, atrial tachycardia in the past. -Due to renal insufficiency, prolonged QT, history of coronary artery disease , antiarrhythmic choice is though fairly limited. -If recurrent atrial arrhythmias are seen, she may be considered for AV kash ablation. 3. Dual chamber pacemaker 4. History of diastolic heart failure with preserved LVEF on recent echocardiogram and stable coronary status. 5. 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 6. Elevated CHADS-VASC score with age, gender, hypertension, diabetes, coronary vascular disease at 5, not on anticoagulant, had recurrent bleeding on NOACs in the past. PLAN: Keep potassium over 4, magnesium greater than 2, avoid amiodarone and other QT prolonging agents. No recurrent Ventricular arrhythmias have been seen. So far she is maintaining SR but amidarone will require time to washout. May resume beta adri or calcium channel adri therapy. She tolerated multaq well in the past but it can also cause QT prolongation and I would refrain from starting it at this time. Interestingly, today her EKG shows AV pacing with every 4th beat having ambler conduction. Her EKG the day before shows a AP-VS, first with a short IN ( 80msec) followed by 3 beats with prolonged IN( 350ms) but no V pacing. Today the same pattern is followed but RV pacing is seen where the IN interval was prolonged. This may represent a Wenckebach pattern or possible device related. It's unclear why it would be pacing today (at 220ms) and not yesterday when the IN interval was 350msec. I have asked for it be interrogated. Rep will look later today and follow up with me.
--- NOTE | 2019-07-15 11:11 | RAD ---
ONE VIEW ABDOMEN: COMPARISON: 07/14/2019. HISTORY: Marion's. Abdominal distention. FINDINGS: Essentially stable bowel gas pattern. Mildly prominent air-filled loops of transverse colon are noted . The left hemicolon is decompressed. No pneumoperitoneum on this supine projection. There does appear to be a lucency projecting inferior to the left obturator ring. The possibility of a left inguinal hernia cannot be excluded. Correlation made with an abdomen and pelvic CT 04/17/2018 does not demonstrate a hernia. If there is concern, consider abdomen and pelvic CT. Results of the study conveyed to Dr. Salazar 07/15/2019 at 11:09 AM Code CR Transcribed Date/Time: 07/15/2019 12:25 PM
--- NOTE | 2019-07-15 13:07 | PDOC.PALCO ---
Palliative Care Consult - Consult Details Requesting Physician: Dr Guillermo Reason for Consult: goals of care Family Members Present: Patient daughter, Maria Elena - Pertinent HPI 83 year old female who was discharged from [facility] 2 days prior to readmission, and had a presyncopal episode and presented again to the emergency room, found to have runs of ventricular tachycardia. Admitted for further medical management. Multiple hospitalizations in past 6 months. - Pertinent PMH CAD, CABG, Atrial FIb, COPD, Hypothyroid, PE, GI Bleed, Renal insufficiency - Social History Smoking Status: Former smoker Smoking: quit greater than 1 year Alcohol Use: none Drug Use History: none Living Situation: independent - Medications MAR Reviewed: Yes - Allergies Allergies/Adverse Reactions: Allergies Allergy/AdvReac Type Severity Reaction Status Date / Time nitrofurantoin Allergy Rash Verified 07/08/19 02:32 penicillin V Allergy Rash Verified 07/08/19 02:32 Penicillins Allergy Rash Verified 07/08/19 02:32 pentazocine Allergy HALLUCINATI Verified 07/08/19 02:32 ONS pentazocine lactate Allergy Verified 07/08/19 02:32 [From Talwin] prednisone Allergy Verified 07/08/19 02:32 rivaroxaban [From Xarelto] Allergy Verified 07/08/19 02:32 simvastatin [From Zocor] Allergy Verified 07/08/19 02:32 MYCINS Allergy Uncoded 07/08/19 02:32 - Subjective Laying on her side, daughter at bedside. Continues with chest wall/sternal pain r/t post CPR. Continues with intermittent nausea and abdominal discomfort. - ROS Constitutional: alert, weakness Eyes: other (Denies visual changes) ENT: throat irritation, other Respiratory: other (Denies shortness of breath, cough) Gastrointestinal: abdominal pain, constipation Genitourinary: other (denies hematuria, dysuria) Neurological: other (denies numbness, dizziness) - Objective Vital Signs: Vital Signs - Most Recent Temp Pulse Resp BP Pulse Ox 97.8 F 81 16 137/70 97 07/15/19 11:45 07/15/19 11:45 07/15/19 11:45 07/15/19 11:45 07/15/19 11:45 Palliative Performance Scale: 50 - Physical Exam Constitutional: ill appearing HEENT: EOMI, moist MMs, sclera anicteric Respiratory: clear to auscultation bilateral, no wheezing, unlabored breathing Cardiovascular: RRR Deviation from normal: Tenderness to gentle palpation, distended Deviation from normal: purewick cath, clear urine Musculoskeletal: no edema, diffuse muscle atrophy Neurology: moves all 4 limbs, no focal deficits Psychiatric: A&O x 3, normal mood - Problem List (1) Pain Code(s): R52 - PAIN, UNSPECIFIED Current Visit: Yes Status: Acute (2) Palliative care encounter Code(s): Z51.5 - ENCOUNTER FOR PALLIATIVE CARE Current Visit: Yes Status: Acute (3) Gaseous abdominal distention Code(s): R14.0 - ABDOMINAL DISTENSION (GASEOUS) Current Visit: Yes Status: Acute (4) Acute on chronic diastolic ACC/AHA stage C congestive heart failure Code(s): I50.33 - ACUTE ON CHRONIC DIASTOLIC (CONGESTIVE) HEART FAILURE Current Visit: No Status: Chronic (5) Chronic respiratory failure with hypoxia Code(s): J96.11 - CHRONIC RESPIRATORY FAILURE WITH HYPOXIA Current Visit: No Status: Chronic - Plan/Recommendations Plan: Short term goal of care is to had improvement with abdominal discomfort. Passed some gas earlier after rectal stimulation and movement with PT. GI following, communicated with them. After relief of abdominal discomfort she is hopeful to increase her diet and activity. 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 Emotional Support and Therapeutic listening. Continues to wish to stay with cardiac resuscitation. Has been again addressed by Palliative Care. Please refer to PC notes in note section [55] minutes spent on this encounter with >50% of the time in counseling and coordination of care. Thank you for this very appropriate consult.
--- NOTE | 2019-07-15 15:39 | PRG ---
DATE OF SERVICE: 07/15/2019 OBJECTIVE: VITAL SIGNS: Valorie Pearson is afebrile. Heart rate is 80, respiratory rate is 16, oximetry is 97%, and blood pressure is 137/70. GENERAL: She is in no distress. LUNGS: Clear. HEART: Regular rhythm. She is paced. ABDOMEN: Soft. IMPRESSION: 1. Ventricular arrhythmias, secondary to prolonged QT, felt to be secondary to amiodarone. 2. Atrial fibrillation. 3. Renal insufficiency. 4. Indwelling dual-chamber pacemaker. 5. Diastolic heart failure. 6. History of mitral valve replacement. Overall, she appears to be stable. I continue to follow her mainly because in the office at this point in time. I will keep looking in on her, but we may be seeing her less frequently over the weekend. Job ID: [id number]
--- NOTE | 2019-07-15 16:52 | PDOC.HOSPP ---
- Subjective Encounter Date: 07/15/19 Subjective: She is feeling somewhat better today. She has been able to pass some flatus on her own. She continues to belch a little as well. Her abdomen feels decompressed somewhat. - Objective Vital Signs & Weight: Vital Signs (12 hours) Temp Pulse Pulse Pulse Pulse Resp BP 07/15/19 15:25 97.4 F L 67 18 07/15/19 11:45 97.8 F 81 16 07/15/19 09:02 80 80 80 129/60 07/15/19 07:40 97.7 F 81 16 BP BP BP BP Pulse Ox 07/15/19 15:25 143/65 H 95 07/15/19 11:45 137/70 97 07/15/19 09:02 134/60 155/67 H 07/15/19 07:40 136/66 100 Weight Weight 157 lb 3.033 oz Most Recent Monitor Data Heart Rate from ECG 82 NIBP 125/76 NIBP BP-Mean 92 Respiration from ECG 22 SpO2 96 I&O: 07/14/19 07/15/19 07/16/19 06:59 06:59 06:59 Intake Total 900 720 Output Total 675 200 Balance 225 520 Result Diagrams: 07/10/19 04:01 07/15/19 04:23 Additional Labs: Accuchecks 07/15/19 07/15/19 07/14/19 10:45 05:29 22:31 POC Glucose 137 H 138 H 148 H 07/14/19 20:18 POC Glucose 144 H Hospitalist ROS - Medication Medications: Active Medications Generic Name Dose Route Start Last Admin Trade Name Freq PRN Reason Stop Dose Admin Acetaminophen/Codeine Phosphate 2 tab 07/09/19 08:21 07/13/19 20:05 Tylenol #3 PO 2 tab Q4H PRN Administration Moderate Pain (4-6) Allopurinol 100 mg 07/08/19 09:00 07/15/19 08:51 Zyloprim PO 100 mg BID KELLY Administration Alprazolam 0.25 mg 07/10/19 13:45 07/12/19 21:14 Xanax PO 0.25 mg BIDPRN PRN Administration Anxiety Aspirin 81 mg 07/08/19 09:00 07/15/19 08:51 Ecotrin PO 81 mg DAILY KELLY Administration Bisacodyl 10 mg 07/15/19 09:00 07/15/19 08:52 Dulcolax [place] 10 mg BID KELLY Administration Coenzyme Q10 200 mg 07/12/19 09:00 07/15/19 08:53 Coenzyme Q10 PO 200 mg DAILY KELLY Administration Cyanocobalamin 1,000 mcg 07/08/19 09:00 07/15/19 08:52 Vitamin B-12 PO Not Given DAILY KELLY Furosemide 40 mg 07/09/19 09:00 07/15/19 15:04 Lasix PO 40 mg 0900,1400 KELLY Administration Guaifenesin 100 mg 07/11/19 01:23 07/11/19 01:36 Robitussin Sf PO 100 mg Q4H PRN Administration Cough Lidocaine HCl/Dextrose 500 mls @ 0 mls/hr 07/09/19 08:30 07/11/19 01:16 Lidocaine 2 Gm/D5w 500 Ml IVPB 500 mls INF KELLY Administration Protocol Titrate Insulin Glargine 10 units/ 0.1 mls @ 0 mls/hr 07/11/19 21:00 07/14/19 20:26 Miscellaneous Medication SC 0.1 mls HS KELLY Administration Levothyroxine Sodium 75 mcg 07/08/19 09:00 07/15/19 08:52 Synthroid PO 75 mcg DAILY KE[facility] Administration Magnesium Oxide 400 mg 07/14/19 09:00 07/15/19 08:52 Magnesium Oxide PO Not Given DAILY KELLY Methylnaltrexone [place] 12 mg 07/14/19 22:00 07/14/19 23:31 Relistor SC 12 mg Q48H KELLY Administration Ondansetron HCl 4 mg 07/10/19 04:48 07/14/19 16:07 Zofran SLOW IVP 4 mg Q6H PRN Administration Nausea/Vomiting Pantoprazole Sodium 40 mg 07/12/19 09:00 07/15/19 08:52 Protonix PO 40 mg DAILY KE[facility] Administration Sodium Chloride 1 ml 07/08/19 15:00 07/15/19 15:04 [place] Nasal [place] 0.65% EA NARE Not Given TID KELLY Sodium Chloride 10 ml 07/12/19 09:00 07/15/19 08:53 Flush - Normal Saline IVF 10 ml Q12HR KELLY Administration Tramadol HCl 50 mg 07/14/19 09:21 07/14/19 14:12 Ultram PO 50 mg Q4H PRN Administration Moderate Pain (4-6) - Exam General Appearance: NAD, awake alert Heart: no murmur, no gallops, no rubs, irregular Respiratory: CTAB, no wheezes, no rales, no ronchi, normal chest expansion, no tachypnea, normal percussion Gastrointestinal: no palpable masses, distended Gastrointestinal - other findings: Hypertympanitic. Slightly softer. Extremities: no cyanosis, no clubbing, no edema Neurological: no focal deficits Musculoskeletal: normal tone Psychiatric: normal affect, normal behavior, A&O x 3 Hosp A/P (1) Torsades de pointes Code(s): I47.2 - VENTRICULAR TACHYCARDIA Status: Acute (2) Atrial flutter Code(s): I48.92 - UNSPECIFIED ATRIAL FLUTTER Status: Chronic (3) CAD (coronary artery disease) Code(s): I25.10 - ATHSCL HEART DISEASE OF [place] CORONARY ARTERY W/O ANG PCTRS Status: Chronic Qualifiers: Coronary Disease-Associated Artery/Lesion type: bypass graft [place] vs. transplanted heart: [place] heart Associated angina: without angina Qualified Code(s): I25.810 - Atherosclerosis of coronary artery bypass graft(s) without angina pectoris (4) Diabetes type 2, controlled Code(s): E11.9 - TYPE 2 DIABETES MELLITUS WITHOUT COMPLICATIONS Status: Chronic Qualifiers: Diabetes mellitus bridge repairer insulin use: with bridge repairer use Diabetes mellitus complication status: without complication Qualified Code(s): E11.9 - Type 2 diabetes mellitus without complications; Z79.4 - associate merchant (current) use of insulin (5) HLD (hyperlipidemia) Code(s): E78.5 - HYPERLIPIDEMIA, UNSPECIFIED Status: Chronic Qualifiers: Hyperlipidemia type: pure hypercholesterolemia Qualified Code(s): E78.00 - Pure hypercholesterolemia, unspecified; E78.0 - Pure hypercholesterolemia (6) Hypothyroidism Code(s): E03.9 - HYPOTHYROIDISM, UNSPECIFIED Status: Chronic Qualifiers: Hypothyroidism type: unspecified Qualified Code(s): E03.9 - Hypothyroidism , unspecified (7) Gaseous abdominal distention Code(s): R14.0 - ABDOMINAL DISTENSION (GASEOUS) Status: Acute - Plan Torsades: Patient has been seen by cardiology and by electrophysiology. Attributed to the amiodarone. She is currently in a paced rhythm. Continuing to maintain her electrolytes within the abundantly normal range. Magnesium and potassium oral supplementation have been ordered. Daily EKG monitoring of the QT interval. Improving, but slow to metabolize away the amio. EP is following. Today she had some changes in her pacing strategy by the pacemaker. Will defer to EP. Hypertension: Resume home meds Hypothyroidism: Continue home levothyroxine dose. Diabetes mellitus type 2: Resume the patient's subcu Lantus nightly. Gaseous abdominal distention: Abd x-ray with diffuse distention/gas. Opioids have been DC'd to avoid worsening the situation. Levsin no help and was discontinued. Encouraged ambulation as tolerated. PT consult to help with that. GI consult appreciated.
--- NOTE | 2019-07-15 20:26 | PRG ---
DATE OF SERVICE: 07/15/2019 REASON FOR CONSULTATION: Abdominal distention, abdominal pain consistent with [place] syndrome. SUBJECTIVE: Yesterday with digital rectal examination, the patient had a significant amount of flatus expulsion. Overnight, she has continued to be able to pass flatus, but also has noticed increased eructation as well. She states that her abdominal pain is improved when compared to yesterday although she does continue to have mild generalized abdominal pain in all abdominal quadrants only when moving. When the patient is at rest, she experiences no pain at all in her abdomen. Currently, she denies any nausea, vomiting, fevers, chills, hematemesis, melena, or hematochezia. OBJECTIVE: VITAL SIGNS: Temperature 97.4, pulse 67, blood pressure 143/65, respiratory rate 18, saturating 95% on 3 L nasal cannula. GENERAL: The patient was lying in bed, in no acute distress. Alert and oriented x4. CARDIOVASCULAR: Regular rate and rhythm with no discernible murmurs, gallops, or rubs. RESPIRATORY: Clear to auscultation bilaterally. ABDOMEN: Hypoactive bowel sounds. Tympanic to percussion. [id number] abdominal distention with tenderness to palpation in the midepigastric and periumbilical regions. EXTREMITIES: No cyanosis, clubbing, or edema. LABORATORY DATA: Chemistry with a sodium of 136, potassium 4.3, chloride 97, CO2 29 BUN 43, creatinine 1.26, glucose 137, calcium 9.1, magnesium 1.9. IMAGING DATA: A KUB was performed on July 15, 2019, which showed decompression of the left hemicolon with mildly prominent air-filled loops of transverse colon noted. However, there appeared to be a lucency projecting inferior to the left obturator ring with the possibility of a left inguinal hernia, not excluded at this time. ASSESSMENT AND PLAN: The patient is an 83-year-old female with past medical history of coronary artery disease, pulmonary embolism, chronic renal insufficiency, hypothyroidism, and chronic obstructive pulmonary disease, initially presenting with a torsade-type picture secondary to amiodarone use, now status post CPR and in the post event period Has developed intestinal/colonic ileus consistent with [place] syndrome. [place] syndrome: The patient recently presented to the hospital with a torsade-type picture secondary to the use of amiodarone that ultimately required CPR as part of her workup. Currently, she is doing well from a cardiac standpoint with normal sinus rhythm based on current management. However, she did have an experience of increased abdominal distention as well as significant enlargement/dilation of both the small and large bowel. Currently on imaging, there is no evidence of a transition point or signs of obstruction that could potentially lead itself toward this picture, although there was mention of a possible inguinal hernia on the most recent KUB; (however, she is passing gas and the likelihood of incarceration or strangulation is unlikely). With the use of Dulcolax suppositories and rectal stimulation, she has had decompression of both her small intestine and left hemicolon and continues to pass gas and burp during the course of this hospitalization. Normally neostigmine administration would be considered in this type of clinical picture, but given the patient's recent complicated cardiac history, administration of neostigmine would be ill-advised at this time. Recommendations: 1. We would continue with daily digital rectal examination as part of reflex action to stimulate the bowel to contract. 2. We would continue Dulcolax suppositories. 3. We would continue Relistor in light of recent narcotic use that might cause decreased intestinal motility. 4. We would avoid any medications that would potentially affect colonic or intestinal motility. 5. We would continue serial KUBs to monitor response to therapy. 6. If she is not showing any significant improvement over the next 72 hours, we would consider either nasogastric tube placement at that time or even possibly colonic decompression, although both would be temporary in nature and long-term management without of those options is not good. 7. We would continue n.p.o. status for now and consider advancing the patient to clear liquid diet tomorrow if improving. We will continue to follow. Please call with any questions. Job ID: [id number]
[2019-07-15] MEDS: Insulin Glargine 10 UNITS in Pre-Filled Syringe SC SCH (22:11)
[2019-07-15] MEDS: Ondansetron PF 4 MG/2 ML Vial SLOW IVP PRN (22:11)
[2019-07-16 05:31] LABS: Anion Gap 15 mmol/L (10-20); BUN (Urea Nitrogen) 41 mg/dL (9.8-20.1); Calc. Creatinine Clearance 38 mL/min (70-130); Calcium 8.9 mg/dL (7.8-10.44); Carbon Dioxide 29 mmol/L (23-31); Chloride 99 mmol/L (98-107); Estimated GFR-MDRD 41; Glucose 117 mg/dL (83-110); Potassium 3.7 mmol/L (3.5-5.1); Sodium 139 mmol/L (136-145)
--- NOTE | 2019-07-16 08:55 | RAD ---
Abdomen one view HISTORY: Marion's syndrome. Abdominal pain. Follow-up. COMPARISON: 07/15/2019. FINDINGS: Gaseous distention of the colon and small bowel again demonstrated. The degree of colonic d istention has decreased slightly. Lucency previously projecting over the left lower pelvis is not present on today's exam. Dystrophic calcifications projecting over the pelvis are unchanged. Prominent vascular calcifications apparent. IMPRESSION : Slight interval decrease in degree of gaseous clonic distention. No new abnormalities.
[2019-07-16] MEDS: Potassium Chloride 20 MEQ TAB PO SCH ×3 (08:56→17:47)
[2019-07-16] MEDS: Furosemide 20 MG TAB PO SCH ×2 (08:56→15:30)
[2019-07-16] MEDS: Cyanocobalamin (Vitamin B-12) 1,000 MCG TAB PO SCH (08:57)
[2019-07-16] MEDS: Allopurinol 100 MG TAB PO SCH ×2 (08:57→20:37)
[2019-07-16] MEDS: Aspirin 81 mg Enteric Coated Tablet PO SCH (08:57)
[2019-07-16] MEDS: Bisacodyl 10 MG SUPP PR SCH ×3 (08:57→20:39)
[2019-07-16] MEDS: Ubidecarenone 50 MG CAP PO SCH (08:57)
[2019-07-16] MEDS: Levothyroxine Sodium 75 MCG TAB PO SCH (08:57)
[2019-07-16] MEDS: Magnesium Oxide 400 MG TAB PO SCH (08:57)
[2019-07-16] MEDS: Sodium Chloride 0.65% Nasal 44 ML BOT EA NARE SCH ×3 (08:58→20:39)
[2019-07-16] MEDS: Ondansetron PF 4 MG/2 ML Vial SLOW IVP PRN (09:00)
--- NOTE | 2019-07-16 09:32 | PRG ---
DATE OF SERVICE: 07/16/2019 SUBJECTIVE: Ms. Pearson has no complaints. OBJECTIVE: VITAL SIGNS: She is afebrile, heart rate 65, respiratory rate 16, oximetry is 99, and blood pressure 156/99. LUNGS: Clear. HEART: Regular rhythm. ABDOMEN: Protuberant, tympanitic. DIAGNOSTIC STUDIES: Abdominal film done a little while ago shows persistence of a colonic ileus, but this has improved. IMPRESSION: 1. Status post ventricular tachycardia with sternal and rib fractures with cardiopulmonary resuscitation, clinically stable. 2. Chronic obstructive pulmonary disease, not a clinical issue at this time. 3. Chronic renal insufficiency, which is stable. 4. Coronary artery disease, which was not causing her ventricular tachycardia per cardiac catheterization. 5. Amiodarone-induced ventricular tachycardia. 6. Deconditioning. PLAN: She will need transfer to rehab once all of her cardiac issues are worked out. We will be available to see her as needed on the weekend. Job ID: [id number]
[2019-07-16] MEDS ORDERED: Famotidine/PF 20 mg/2ml Vial ONE (10:10)
[2019-07-16] MEDS ORDERED: Fentanyl 100 MCG/2 ML VIAL ONE (10:10)
[2019-07-16] MEDS ORDERED: Iopamidol 370 76% 50 ML VIAL FS ONE (11:39)
[2019-07-16] MEDS ORDERED: Levofloxacin 500 mg/D5W 100 ml Premix Bag ONE (11:48)
[2019-07-16] MEDS ORDERED: Midazolam HCl 2 mg/2 ml Vial ONE (12:39)
--- NOTE | 2019-07-16 13:05 | PRG ---
DATE OF SERVICE: 07/16/2019 REASON FOR CONSULTATION: Abdominal distention consistent with Marion syndrome, abdominal pain. SUBJECTIVE: Per patient and per nursing staff, the patient had multiple bowel movements yesterday with the passage of liquid stool on three occasions. She has also been passing a significant amount of flatus during the last 24 hours as well. Upon interviewing the patient today, she states that her abdominal distention has decreased somewhat and that her pain continues to improve. Otherwise, she denies any nausea, vomiting, fevers, chills, hematemesis, melena, or hematochezia. OBJECTIVE: VITAL SIGNS: Temperature 98.5, pulse 65, blood pressure 156/69, respiratory rate 16, saturating 99% on 3 L nasal cannula. GENERAL: The patient was lying in bed, in no acute distress. Alert and oriented x4. CARDIOVASCULAR: Regular rate and rhythm. RESPIRATORY: Clear to auscultation bilaterally. ABDOMEN: Hypoactive bowel sounds with higher pitched tinkling sounds heard across the entire abdomen. Tympanic to percussion. Hctytisy-kx-dwletl abdominal distention with mild tenderness to palpation in the midepigastric region. EXTREMITIES: No cyanosis, clubbing, or edema. LABORATORY DATA: Chemistry with a sodium of 139, potassium 3.7, chloride 99, CO2 of 29, BUN 41, creatinine 1.24, and glucose 117. IMAGING DATA: KUB was performed on July 16, 2019, which showed gaseous distention of the colon and small bowel was again demonstrated, but with the possibility of the degree of which decreased slightly. The lucency previously projecting over the left lower pelvis was not present on today's exam. Prominent vascular calcifications were present. ASSESSMENT AND PLAN: The patient is an 83-year-old female with past medical history of coronary artery disease, pulmonary embolism, chronic renal insufficiency, hypothyroidism, and chronic obstructive pulmonary disease, initially presenting with a torsade type picture secondary to amiodarone use, now status post CPR, and in the post CPR period, has developed increased intestinal gas with no signs of obstruction consistent with [place] syndrome. Marion syndrome. The patient initially presented to the hospital with a torsade type picture that was believed to be secondary to the use of amiodarone that ultimately required CPR. From a cardiac standpoint, the patient is doing much better and is actually on for procedure today for revision of her cardiac leads; however, in the post CPR period, the patient did experience increased abdominal distention as well as significant enlargement/dilation of both large and small bowels with the current regimen of Relistor rectal stimulation and Dulcolax suppositories; however, she continues to have improvement daily with decreased abdominal pain and decreased intraluminal gas based on the most recent imaging of her abdomen. At the current time, she is passing flatus and having bowel movements, making an obstruction highly unlikely at this time. RECOMMENDATIONS: 1. We would continue daily digital rectal examination/stimulation. 2. Continue Dulcolax suppositories. 3. Continue Relistor in light of recent narcotic use that could cause decreased intestinal motility and exacerbate an ileus. 4. We would attempt to avoid any medications that could potentially affect colonic or intestinal motility. 5. We would continue the clear liquid diet and advance to a full liquid diet within the next 24 hours and assess for response. 6. Neostigmine administration at this time is not indicated given the improvement with more conservative management and her current cardiac situation. We will continue to follow peripherally at this point. Please call with any questions. Job ID: [id number]
[2019-07-16] MEDS ORDERED: Metoclopramide HCl 10 MG/2 ML VIAL ONE (15:13)
--- NOTE | 2019-07-16 15:21 | RAD ---
Exam: Chest one view HISTORY:Status post cardiac device placement Comparison: 07/07/2019 FINDINGS: Cardiac silhouette:Normal cardiac silhouette. Sternotomy wires are noted. Prosthetic aortic valve. Pacing device: Left-sided transvenous pacemaker with lead positioned over atrium and right ventricle. Aorta: Atherosclerosis and elongation. Pulmonary vessels: Normal Costophrenic angles: Small bilateral pleural effusions. LUNGS: Bibasilar parenchymal changes, left greater than right. Pneumothorax: None Osseous abnormalities: None IMPRESSION: 1. Atherosclerosis and elongation of the aorta 2. Bibasilar pleural and parenchymal changes 3. Left-sided transvenous pacing device as detailed above. No pneumothorax.
--- NOTE | 2019-07-16 18:14 | PDOC.HOSPP ---
- Subjective Encounter Date: 07/16/19 Subjective: Feeling better. Continues to have flatus and eructations. - Objective Vital Signs & Weight: Vital Signs (12 hours) Temp Pulse Resp BP Pulse Ox 07/16/19 15:42 98.0 F 75 16 139/60 100 07/16/19 11:30 98.0 F 60 16 145/65 H 99 07/16/19 08:00 99 07/16/19 07:21 98.5 F 65 16 156/69 H 99 Weight Weight 161 lb 7 oz Most Recent Monitor Data Heart Rate from ECG 82 NIBP 125/76 NIBP BP-Mean 92 Respiration from ECG 22 SpO2 96 I&O: 07/15/19 07/16/19 07/17/19 06:59 06:59 06:59 Intake Total 720 1200 Output Total 200 1202 Balance 520 -2 Result Diagrams: 07/10/19 04:01 07/16/19 04:32 Additional Labs: Accuchecks 07/16/19 07/16/19 07/16/19 16:39 10:48 06:22 POC Glucose 180 H 119 H 127 H 07/15/19 20:30 POC Glucose 181 H Hospitalist ROS - Medication Medications: Active Medications Generic Name Dose Route Start Last Admin Trade Name Freq PRN Reason Stop Dose Admin Acetaminophen/Codeine Phosphate 2 tab 07/09/19 08:21 07/13/19 20:05 Tylenol #3 PO 2 tab Q4H PRN Administration Moderate Pain (4-6) Allopurinol 100 mg 07/08/19 09:00 07/16/19 08:57 Zyloprim PO 100 mg BID KELLY Administration Alprazolam 0.25 mg 07/10/19 13:45 07/12/19 21:14 Xanax PO 0.25 mg BIDPRN PRN Administration Anxiety Aspirin 81 mg 07/08/19 09:00 07/16/19 08:57 Ecotrin PO 81 mg DAILY KELLY Administration Bisacodyl 10 mg 07/15/19 09:00 07/16/19 17:48 Dulcolax [place] Not Given BID KELLY Coenzyme Q10 200 mg 07/12/19 09:00 07/16/19 08:57 Coenzyme Q10 PO 200 mg DAILY KELLY Administration Cyanocobalamin 1,000 mcg 07/08/19 09:00 07/16/19 08:57 Vitamin B-12 PO 1,000 mcg DAILY KELLY Administration Furosemide 40 mg 07/09/19 09:00 07/16/19 15:30 Lasix PO Not Given 0900,1400 [facility] Guaifenesin 100 mg 07/11/19 01:23 07/11/19 01:36 Robitussin Sf PO 100 mg Q4H PRN Administration Cough Lidocaine HCl/Dextrose 500 mls @ 0 mls/hr 07/09/19 08:30 07/11/19 01:16 Lidocaine 2 Gm/D5w 500 Ml IVPB 500 mls INF KELLY Administration Protocol Titrate Insulin Glargine 10 units/ 0.1 mls @ 0 mls/hr 07/11/19 21:00 07/15/19 22:11 Miscellaneous Medication SC 0.1 mls HS KELLY Administration Magnesium Oxide 400 mg 07/14/19 09:00 07/16/19 08:57 Magnesium Oxide PO 400 mg DAILY KELLY Administration Methylnaltrexone [place] 12 mg 07/14/19 22:00 07/14/19 23:31 Relistor SC 12 mg Q48H KELLY Administration Ondansetron HCl 4 mg 07/10/19 04:48 07/16/19 09:00 Zofran SLOW IVP 4 mg Q6H PRN Administration Nausea/Vomiting Pantoprazole Sodium 40 mg 07/12/19 09:00 07/16/19 08:57 Protonix PO 40 mg DAILY KELLY Administration Potassium Chloride 20 meq 07/16/19 17:00 07/16/19 17:25 K-Dur PO 20 meq BID-WM KELLY Administration Sodium Chloride 1 ml 07/08/19 15:00 07/16/19 15:38 [place] Nasal [place] 0.65% EA NARE Not Given TID KELLY Sodium Chloride 10 ml 07/12/19 09:00 07/16/19 08:58 Flush - Normal Saline IVF 10 ml Q12HR KELLY Administration Tramadol HCl 50 mg 07/14/19 09:21 07/14/19 14:12 Ultram PO 50 mg Q4H PRN Administration Moderate Pain (4-6) - Exam General Appearance: NAD, awake alert Heart: RRR, no murmur, no gallops, no rubs, normal peripheral pulses Respiratory: CTAB, no wheezes, no rales, no ronchi, normal chest expansion, no tachypnea, normal percussion Gastrointestinal: soft, non-tender, distended Extremities: no cyanosis, no clubbing, no edema Skin: normal turgor Neurological: no focal deficits Musculoskeletal: normal tone, normal strength, no muscle wasting Psychiatric: normal affect, normal behavior, A&O x 3 Hosp A/P (1) Torsades de pointes Code(s): I47.2 - VENTRICULAR TACHYCARDIA Status: Acute (2) Atrial flutter Code(s): I48.92 - UNSPECIFIED ATRIAL FLUTTER Status: Chronic (3) CAD (coronary artery disease) Code(s): I25.10 - ATHSCL HEART DISEASE OF [place] CORONARY ARTERY W/O ANG PCTRS Status: Chronic Qualifiers: Coronary Disease-Associated Artery/Lesion type: bypass graft [place] vs. 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 operator truck driver insulin use: with mcc use Diabetes mellitus complication status: without complication Qualified Code(s): E11.9 - Type 2 diabetes mellitus without complications; Z79.4 - intermodal owner operator truck driver (current) use of insulin (5) HLD (hyperlipidemia) Code(s): E78.5 - HYPERLIPIDEMIA, UNSPECIFIED Status: Chronic Qualifiers: Hyperlipidemia type: pure hypercholesterolemia Qualified Code(s): E78.00 - Pure hypercholesterolemia, unspecified; E78.0 - Pure hypercholesterolemia (6) Hypothyroidism Code(s): E03.9 - HYPOTHYROIDISM, UNSPECIFIED Status: Chronic Qualifiers: Hypothyroidism type: unspecified Qualified Code(s): E03.9 - Hypothyroidism , unspecified (7) Gaseous abdominal distention Code(s): R14.0 - ABDOMINAL DISTENSION (GASEOUS) Status: Acute - Plan Torsades: Patient has been seen by cardiology and by electrophysiology. Attributed to the amiodarone. She is currently in a paced rhythm. Continuing to maintain her electrolytes within the abundantly normal range. Magnesium and potassium oral supplementation have been ordered. Daily EKG monitoring of the QT interval. Improving, but slow to metabolize away the amio. EP is following. PPM Defect: Apparently has some anomoly on the PPM interrogation. Patient told me she was getting a procedure and it looks like it may be a PPM revision. Hypertension: Resume home meds Hypothyroidism: Continue home levothyroxine dose. Diabetes mellitus type 2: Resume the patient's subcu Lantus nightly. Gaseous abdominal distention: Abd x-ray with diffuse distention/gas, but improved. Opioids have been DC'd to avoid worsening the situation. Levsin no help and was discontinued. Receiving Relistor. Encouraged ambulation as tolerated. PT consult to help with that. GI consult appreciated.
[2019-07-16] MEDS: Doxycycline 100 MG CAP PO SCH (20:37)
[2019-07-16] MEDS: Insulin Glargine 10 UNITS in Pre-Filled Syringe SC SCH (20:37)
[2019-07-16] MEDS: Methylnaltrexone 12 MG/0.6 ML VIAL SC SCH (22:17)
--- NOTE | 2019-07-16 23:24 | EKG ---
Test Reason : Blood Pressure : / mmHG Vent. Rate : 080 BPM Atrial Rate : 058 BPM P-R Int : 226 ms QRS Dur : 148 ms QT Int : 690 ms P-R-T Axes : 000 -78 107 degrees QTc Int : 795 ms AV dual-paced rhythm with prolonged AV conduction Abnormal ECG When compared with ECG of 08-JUL-2019 00:06, (Unconfirmed) Electronic ventricular pacemaker has replaced Sinus rhythm Confirmed by Dandy ADORNO ([id number]) on 07/16/2019 11:23:50 PM Referred By: PANDA Confirmed By:Dandy ADORNO
--- NOTE | 2019-07-16 23:29 | EKG ---
Test Reason : Blood Pressure : / mmHG Vent. Rate : 080 BPM Atrial Rate : 078 BPM P-R Int : 000 ms QRS Dur : 152 ms QT Int : 546 ms P-R-T Axes : 000 -76 101 degrees QTc Int : 629 ms AV dual-paced rhythm Abnormal ECG When compared with ECG of 08-JUL-2019 16:23, (Unconfirmed) No significant change was found Confirmed by Dandy ADORNO ([id number]) on 07/16/2019 11:28:44 PM Referred By: [facility] Confirmed By:Dandy ADORNO
--- NOTE | 2019-07-16 23:31 | EKG ---
Test Reason : Blood Pressure : / mmHG Vent. Rate : 080 BPM Atrial Rate : 068 BPM P-R Int : 000 ms QRS Dur : 098 ms QT Int : 412 ms P-R-T Axes : 000 061 262 degrees QTc Int : 475 ms Atrial-paced rhythm with prolonged AV conduction with occasional ventricular-paced complexes Abnormal ECG When compared with ECG of 10-JUL-2019 09:44, (Unconfirmed) No significant change was found Confirmed by Dandy ADORNO ([id number]) on 07/16/2019 11:30:36 PM Referred By: FATOU Confirmed By:Dandy ADORNO
[2019-07-17] MEDS: traMADol HCl 50 MG TAB PO PRN ×2 (00:19→20:13)
[2019-07-17 05:20] LABS: Anion Gap 10 mmol/L (10-20); BUN (Urea Nitrogen) 32 mg/dL (9.8-20.1); Calc. Creatinine Clearance 42 mL/min (70-130); Calcium 9.1 mg/dL (7.8-10.44); Carbon Dioxide 33 mmol/L (23-31); Chloride 99 mmol/L (98-107); Estimated GFR-MDRD 45; Glucose 123 mg/dL (83-110); Magnesium 1.9 mg/dL (1.6-2.6); Sodium 138 mmol/L (136-145)
[2019-07-17] MEDS: Levothyroxine Sodium 75 MCG TAB PO SCH (05:26)
[2019-07-17] MEDS: Aspirin 81 mg Enteric Coated Tablet PO SCH (09:42)
[2019-07-17] MEDS: Potassium Chloride 20 MEQ TAB PO SCH ×2 (09:42→18:15)
[2019-07-17] MEDS: Cyanocobalamin (Vitamin B-12) 1,000 MCG TAB PO SCH (09:43)
[2019-07-17] MEDS: Doxycycline 100 MG CAP PO SCH ×2 (09:43→20:05)
[2019-07-17] MEDS: Ubidecarenone 50 MG CAP PO SCH (09:43)
[2019-07-17] MEDS: Magnesium Oxide 400 MG TAB PO SCH (09:43)
[2019-07-17] MEDS: Furosemide 20 MG TAB PO SCH ×2 (09:43→14:37)
[2019-07-17] MEDS: Allopurinol 100 MG TAB PO SCH ×2 (09:44→20:05)
[2019-07-17] MEDS: Sodium Chloride 0.65% Nasal 44 ML BOT EA NARE SCH ×3 (09:44→20:05)
[2019-07-17] MEDS: Bisacodyl 10 MG SUPP PR SCH ×2 (09:44→20:05)
--- NOTE | 2019-07-17 12:24 | PDOC.CPN ---
- Subjective Date: 07/17/19 Time: 12:39 Interval history: The pt seen and examined. No overnight events. No cardiac complaints. - Objective Allergies/Adverse Reactions: Allergies Allergy/AdvReac Type Severity Reaction Status Date / Time nitrofurantoin Allergy Rash Verified 07/08/19 02:32 penicillin V Allergy Rash Verified 07/08/19 02:32 Penicillins Allergy Rash Verified 07/08/19 02:32 pentazocine Allergy HALLUCINATI Verified 07/08/19 02:32 ONS pentazocine lactate Allergy Verified 07/08/19 02:32 [From Talwin] prednisone Allergy Verified 07/08/19 02:32 rivaroxaban [From Xarelto] Allergy Verified 07/08/19 02:32 simvastatin [From Zocor] Allergy Verified 07/08/19 02:32 MYCINS Allergy Uncoded 07/08/19 02:32 Visit Medications: Current Medications Acetaminophen/Codeine Phosphate (Tylenol #3) 1 tab PO Q4H PRN PRN Reason: Mild Pain (1-3) Acetaminophen/Codeine Phosphate (Tylenol #3) 2 tab PO Q4H PRN PRN Reason: Moderate Pain (4-6) Last Admin: 07/13/19 20:05 Dose: 2 tab Allopurinol (Zyloprim) 100 mg PO BID [facility] Last Admin: 07/17/19 09:44 Dose: 100 mg Alprazolam (Xanax) 0.25 mg PO BIDPRN PRN PRN Reason: Anxiety Last Admin: 07/12/19 21:14 Dose: 0.25 mg Aspirin (Ecotrin) 81 mg PO DAILY [facility] Last Admin: 07/17/19 09:42 Dose: 81 mg Bisacodyl (Dulcolax) 10 mg ND BID [facility] Last Admin: 07/17/19 09:44 Dose: Not Given Coenzyme Q10 (Coenzyme Q10) 200 mg PO DAILY [facility] Last Admin: 07/17/19 09:43 Dose: 200 mg Cyanocobalamin (Vitamin B-12) 1,000 mcg PO DAILY [facility] Last Admin: 07/17/19 09:43 Dose: 1,000 mcg Dextrose/Water (Dextrose 50%) 25 gm SLOW IVP PRN PRN PRN Reason: Hypoglycemia Doxycycline Hyclate (Vibramycin) 100 mg PO BID [facility] Stop: 07/23/19 09:01 Last Admin: 07/17/19 09:43 Dose: 100 mg Furosemide (Lasix) 40 mg PO 0900,1400 [facility] Last Admin: 07/17/19 09:43 Dose: 40 mg Glucagon (Glucagon) 1 mg IM PRN PRN PRN Reason: Hypoglycemia Guaifenesin (Robitussin Sf) 100 mg PO Q4H PRN PRN Reason: Cough Last Admin: 07/11/19 01:36 Dose: 100 mg Dextrose/Water (D5w) 1,000 mls @ 0 mls/hr IV .Q0M PRN PRN Reason: Hypoglycemia Lidocaine HCl/Dextrose (Lidocaine 2 Gm/D5w 500 Ml) 500 mls @ 0 mls/hr IVPB INF [facility]; Protocol Last Admin: 07/11/19 01:16 Dose: 500 mls Nitroglycerin/Dextrose (Nitroglycerin 50 Mg/250 Ml Bot) 250 mls @ 0 mls/hr IVPB INF KELLY; Protocol Insulin Glargine 10 units/ (Miscellaneous Medication) 0.1 mls @ 0 mls/hr SC [facility] Last Admin: 07/16/19 20:37 Dose: 0.1 mls Levothyroxine Sodium (Synthroid) 75 mcg PO 0600 [facility] Last Admin: 07/17/19 05:26 Dose: 75 mcg Magnesium Hydroxide (Milk Of Magnesium) 30 ml PO DAILYPRN PRN PRN Reason: Constipation Magnesium Oxide (Magnesium Oxide) 400 mg PO DAILY [facility] Last Admin: 07/17/19 09:43 Dose: 400 mg Methylnaltrexone [place] (Relistor) 12 mg SC Q48H [facility] Last Admin: 07/16/19 22:17 Dose: Not Given Nitroglycerin (Nitrostat) 0.4 mg SL Q5MIN PRN PRN Reason: Chest Pain Ondansetron HCl (Zofran) 4 mg SLOW IVP Q6H PRN PRN Reason: Nausea/Vomiting Last Admin: 07/16/19 09:00 Dose: 4 mg Pantoprazole Sodium (Protonix) 40 mg PO DAILY [facility] Last Admin: 07/17/19 09:43 Dose: 40 mg Potassium Chloride (K-Dur) 20 meq PO BID-[facility] Last Admin: 07/17/19 09:42 Dose: 20 meq Sodium Chloride ([place] Nasal [place] 0.65%) 1 ml EA NARE TID [facility] Last Admin: 07/17/19 09:44 Dose: Not Given Sodium Chloride (Flush - Normal Saline) 10 ml IVF Q12HR KELLY Last Admin: 07/17/19 09:44 Dose: 10 ml Sodium Chloride (Flush - Normal Saline) 10 ml IVF PRN PRN PRN Reason: Saline Flush Tramadol HCl (Ultram) 50 mg PO Q4H PRN PRN Reason: Moderate Pain (4-6) Last Admin: 07/17/19 00:19 Dose: 50 mg Vital Signs & Weight: Vital Signs Temp Pulse Resp BP Pulse Ox 07/17/19 09:36 97.9 F 71 18 159/66 H 98 07/17/19 03:19 97.8 F 71 18 136/63 97 Weight 163 lb 9.328 oz - Medication Contraindications No Anticoagulant reason: Anticoagulant not tolerated - Physical Exam General: alert & oriented x3 HEENT: mucus membranes moist Neck: supple neck Cardiac: regular rate and rhythm Lungs: decreased breath sounds Neuro: cranial nerve 2-12 intact - Labs Result Diagrams: 07/10/19 04:01 07/17/19 04:38 Troponin/CKMB CK-MB (CK-2) 1.6 ng/mL (0-6.6) 07/08/19 16:17 Troponin I 0.060 ng/mL (< 0.028) H 07/10/19 04:01 - Telemetry Sinus rhythms and dysrhythmias: other (A paced) - Assessment/Plan Assessment/Plan: 1. Torsade-like arrhythmia possible 2/2 Amiodarone - no recurrent arrhythmia; Keep K level 4 and Mag level > 2; avoid Amiodarone and other QT prolonging agents. 2. Parox Afib/AT in past - well controlled HR; On tele; if recurrent atrial arrhythmias are seen, she may be considered for AV kash ablation. On ASA 81mg qd due to hx of NOAC induced GI bleed in past (CHADS-VASC score with age, gender , hypertension, diabetes, coronary) vascular disease 3. CAD with hx of CABG x 3 in 2000 and redo CABG x1 in 2002. 4. HTN 5. CKD 6. COPD 7. Hypothyroidism 8. DM type 2 9. 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 seen and eval. by me. 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 Exam: few bilateral rales, RRR,no edema. salena
--- NOTE | 2019-07-17 16:35 | PDOC.HOSPP ---
- Subjective Subjective: Seen and examined. Pacemaker site is clean and dry, well healing. Patient's granddaughter bedside, time was given for questions, all answered in detail. Patient had some pain in the night which was controlled with symptomatic medications. - Objective Vital Signs & Weight: Vital Signs (12 hours) Temp Pulse Pulse Pulse Resp BP BP 07/17/19 16:14 98.3 F 79 18 07/17/19 13:45 69 70 153/69 H 154/69 H 07/17/19 12:25 97.5 F L 75 18 07/17/19 09:36 97.9 F 71 18 BP Pulse Ox 07/17/19 16:14 138/64 97 07/17/19 13:45 07/17/19 12:25 137/62 98 07/17/19 09:36 159/66 H 98 Weight Weight 163 lb 9.328 oz Most Recent Monitor Data Heart Rate from ECG 82 NIBP 125/76 NIBP BP-Mean 92 Respiration from ECG 22 SpO2 96 I&O: 07/16/19 07/17/19 07/18/19 06:59 06:59 06:59 Intake Total 1200 840 Output Total 1202 820 Balance -2 20 Result Diagrams: 07/10/19 04:01 07/17/19 04:38 Additional Labs: Accuchecks 07/17/19 07/17/19 07/16/19 11:21 05:59 20:34 POC Glucose 177 H 130 H 208 H 07/16/19 16:39 POC Glucose 180 H Radiology Reviewed by me: Yes Hospitalist ROS - Review of Systems All other systems reviewed; all pertinent +/- noted in HPI/Subj - Medication Medications: Active Medications Generic Name Dose Route Start Last Admin Trade Name Freq PRN Reason Stop Dose Admin Acetaminophen/Codeine Phosphate 2 tab 07/09/19 08:21 07/13/19 20:05 Tylenol #3 PO 2 tab Q4H PRN Administration Moderate Pain (4-6) Allopurinol 100 mg 07/08/19 09:00 07/17/19 09:44 Zyloprim PO 100 mg BID KELLY Administration Alprazolam 0.25 mg 07/10/19 13:45 07/12/19 21:14 Xanax PO 0.25 mg BIDPRN PRN Administration Anxiety Aspirin 81 mg 07/08/19 09:00 07/17/19 09:42 Ecotrin PO 81 mg DAILY KELLY Administration Bisacodyl 10 mg 07/15/19 09:00 07/17/19 09:44 Dulcolax [place] Not Given BID [facility] Coenzyme Q10 200 mg 07/12/19 09:00 07/17/19 09:43 Coenzyme Q10 PO 200 mg DAILY KELLY Administration Cyanocobalamin 1,000 mcg 07/08/19 09:00 07/17/19 09:43 Vitamin B-12 PO 1,000 mcg DAILY KELLY Administration Doxycycline Hyclate 100 mg 07/16/19 21:00 07/17/19 09:43 Vibramycin PO 07/23/19 09:01 100 mg BID KELLY Administration Furosemide 40 mg 07/09/19 09:00 07/17/19 14:37 Lasix PO 40 mg 0900,1400 KELLY Administration Guaifenesin 100 mg 07/11/19 01:23 07/11/19 01:36 Robitussin Sf PO 100 mg Q4H PRN Administration Cough Lidocaine HCl/Dextrose 500 mls @ 0 mls/hr 07/09/19 08:30 07/11/19 01:16 Lidocaine 2 Gm/D5w 500 Ml IVPB 500 mls INF KELLY Administration Protocol Titrate Insulin Glargine 10 units/ 0.1 mls @ 0 mls/hr 07/11/19 21:00 07/16/19 20:37 Miscellaneous Medication SC 0.1 mls HS KELLY Administration Levothyroxine Sodium 75 mcg 07/17/19 06:00 07/17/19 05:26 Synthroid PO 75 mcg 0600 KELLY Administration Magnesium Oxide 400 mg 07/14/19 09:00 07/17/19 09:43 Magnesium Oxide PO 400 mg DAILY [facility] Administration Methylnaltrexone [place] 12 mg 07/14/19 22:00 07/16/19 22:17 Relistor SC Not Given Q48H [facility] Ondansetron HCl 4 mg 07/10/19 04:48 07/16/19 09:00 Zofran SLOW IVP 4 mg Q6H PRN Administration Nausea/Vomiting Pantoprazole Sodium 40 mg 07/12/19 09:00 07/17/19 09:43 Protonix PO 40 mg DAILY KELLY Administration Potassium Chloride 20 meq 07/16/19 17:00 07/17/19 09:42 K-Dur PO 20 meq BID-WM KELLY Administration Sodium Chloride 1 ml 07/08/19 15:00 07/17/19 14:37 [place] Nasal [place] 0.65% EA NARE Not Given TID KELLY Sodium Chloride 10 ml 07/12/19 09:00 07/17/19 09:44 Flush - Normal Saline IVF 10 ml Q12HR KELLY Administration Tramadol HCl 50 mg 07/14/19 09:21 07/17/19 00:19 Ultram PO 50 mg Q4H PRN Administration Moderate Pain (4-6) - Exam General Appearance: NAD, awake alert Eye: anicteric sclera ENT: normocephalic atraumatic, moist mucosa Neck: supple, symmetric, no lymphadenopathy Heart: no murmur, no gallops, no rubs Respiratory: CTAB, no wheezes, no rales, no ronchi, normal chest expansion Gastrointestinal: soft, non-tender, non-distended, no guarding, no rigidity Extremities: 1+ LE edema Skin: normal turgor Skin - other findings: Left upper chest incision healing well Neurological: cranial nerve grossly intact, no focal deficits Musculoskeletal: generalized weakness Psychiatric: normal affect, A&O x 3 Hosp A/P (1) Gaseous abdominal distention Code(s): R14.0 - ABDOMINAL DISTENSION (GASEOUS) Status: Acute (2) Pain Code(s): R52 - PAIN, UNSPECIFIED Status: Acute (3) Torsades de pointes Code(s): I47.2 - VENTRICULAR TACHYCARDIA Status: Acute (4) Congestive heart failure Code(s): I50.9 - HEART FAILURE, UNSPECIFIED Status: Acute (5) Kidney disease Code(s): N28.9 - DISORDER OF KIDNEY AND URETER, UNSPECIFIED Status: Acute (6) Acute and chronic respiratory failure with hypoxia Code(s): J96.21 - ACUTE AND CHRONIC RESPIRATORY FAILURE WITH HYPOXIA Status: Chronic (7) Acute on chronic diastolic ACC/AHA stage C congestive heart failure Code(s): I50.33 - ACUTE ON CHRONIC DIASTOLIC (CONGESTIVE) HEART FAILURE Status : Chronic (8) Atrial flutter Code(s): I48.92 - UNSPECIFIED ATRIAL FLUTTER Status: Chronic (9) CAD (coronary artery disease) Code(s): I25.10 - ATHSCL HEART DISEASE OF [place] CORONARY ARTERY W/O ANG PCTRS Status: Chronic Qualifiers: Coronary Disease-Associated Artery/Lesion type: bypass graft [place] vs. transplanted heart: [place] heart Associated angina: without angina Qualified Code(s): I25.810 - Atherosclerosis of coronary artery bypass graft(s) without angina pectoris (10) Chronic diastolic heart failure Code(s): I50.32 - CHRONIC DIASTOLIC (CONGESTIVE) HEART FAILURE Status: Chronic (11) Chronic respiratory failure with hypoxia Code(s): J96.11 - CHRONIC RESPIRATORY FAILURE WITH HYPOXIA Status: Chronic (12) Diabetes type 2, controlled Code(s): E11.9 - TYPE 2 DIABETES MELLITUS WITHOUT COMPLICATIONS Status: Chronic Qualifiers: Diabetes mellitus senior living insulin use: with senior living use Diabetes mellitus complication status: without complication Qualified Code(s): E11.9 - Type 2 diabetes mellitus without complications; 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 (13) HLD (hyperlipidemia) Code(s): E78.5 - HYPERLIPIDEMIA, UNSPECIFIED Status: Chronic Qualifiers: Hyperlipidemia type: pure hypercholesterolemia Qualified Code(s): E78.00 - Pure hypercholesterolemia, unspecified; E78.0 - Pure hypercholesterolemia (14) Hypothyroidism Code(s): E03.9 - HYPOTHYROIDISM, UNSPECIFIED Status: Chronic Qualifiers: Hypothyroidism type: unspecified Qualified Code(s): E03.9 - Hypothyroidism , unspecified (15) Sick sinus syndrome Code(s): I49.5 - SICK SINUS SYNDROME Status: Chronic (16) Anemia Code(s): D64.9 - ANEMIA, UNSPECIFIED Status: Resolved Qualifiers: Anemia type: unspecified type - Plan Plan: medical unit with telemetry EP subspecialty of cardiology consultation, recommendations appreciated cardiology consultation, recommendations appreciated gastroenterology consultation, recommendations appreciated status post permanent pacemaker revision, lead adjustment cardiomyopathy regimen as able patient is moving her bowels after medication adjustment by gastroenterology metabolic panel within normal limits this a.m. continue other home medications as able blood pressure control blood sugar control G.I. prophylaxis DVT prophylaxis
[2019-07-17] MEDS: Insulin Glargine 10 UNITS in Pre-Filled Syringe SC SCH (20:23)
[2019-07-18] MEDS: Bisacodyl 10 MG SUPP PR SCH ×2 (00:22→08:40)
[2019-07-18] MEDS: Ondansetron PF 4 MG/2 ML Vial SLOW IVP PRN (00:25)
[2019-07-18] MEDS: traMADol HCl 50 MG TAB PO PRN ×2 (01:18→14:19)
[2019-07-18] MEDS: ALPRAZolam 0.25 MG TAB PO PRN (03:20)
[2019-07-18 04:52] LABS: Anion Gap 12 mmol/L (10-20); BUN (Urea Nitrogen) 23 mg/dL (9.8-20.1); Calc. Creatinine Clearance 49 mL/min (70-130); Carbon Dioxide 30 mmol/L (23-31); Chloride 98 mmol/L (98-107); Estimated GFR-MDRD 53; Glucose 124 mg/dL (83-110); Magnesium 1.7 mg/dL (1.6-2.6); Potassium 4.1 mmol/L (3.5-5.1); Sodium 136 mmol/L (136-145)
[2019-07-18] MEDS: Levothyroxine Sodium 75 MCG TAB PO SCH (05:39)
[2019-07-18] MEDS: Doxycycline 100 MG CAP PO SCH ×2 (08:40→22:31)
[2019-07-18] MEDS: Furosemide 20 MG TAB PO SCH ×2 (08:40→14:19)
[2019-07-18] MEDS: Allopurinol 100 MG TAB PO SCH ×2 (08:40→22:31)
[2019-07-18] MEDS: Aspirin 81 mg Enteric Coated Tablet PO SCH (08:40)
[2019-07-18] MEDS: Potassium Chloride 20 MEQ TAB PO SCH ×2 (08:40→17:16)
[2019-07-18] MEDS: Magnesium Oxide 400 MG TAB PO SCH (08:40)
[2019-07-18] MEDS: Ubidecarenone 50 MG CAP PO SCH (08:41)
[2019-07-18] MEDS: Cyanocobalamin (Vitamin B-12) 1,000 MCG TAB PO SCH (08:41)
[2019-07-18] MEDS: Sodium Chloride 0.65% Nasal 44 ML BOT EA NARE SCH ×2 (08:49→14:21)
--- NOTE | 2019-07-18 14:46 | PDOC.CPN ---
- Subjective Date: 07/18/19 Time: 14:46 - Objective Allergies/Adverse Reactions: Allergies Allergy/AdvReac Type Severity Reaction Status Date / Time nitrofurantoin Allergy Rash Verified 07/08/19 02:32 penicillin V Allergy Rash Verified 07/08/19 02:32 Penicillins Allergy Rash Verified 07/08/19 02:32 pentazocine Allergy HALLUCINATI Verified 07/08/19 02:32 ONS pentazocine lactate Allergy Verified 07/08/19 02:32 [From Talwin] prednisone Allergy Verified 07/08/19 02:32 rivaroxaban [From Xarelto] Allergy Verified 07/08/19 02:32 simvastatin [From Zocor] Allergy Verified 07/08/19 02:32 MYCINS Allergy Uncoded 07/08/19 02:32 Visit Medications: Current Medications Acetaminophen/Codeine Phosphate (Tylenol #3) 1 tab PO Q4H PRN PRN Reason: Mild Pain (1-3) Acetaminophen/Codeine Phosphate (Tylenol #3) 2 tab PO Q4H PRN PRN Reason: Moderate Pain (4-6) Last Admin: 07/13/19 20:05 Dose: 2 tab Allopurinol (Zyloprim) 100 mg PO BID [facility] Last Admin: 07/18/19 08:40 Dose: 100 mg Alprazolam (Xanax) 0.25 mg PO BIDPRN PRN PRN Reason: Anxiety Last Admin: 07/18/19 03:20 Dose: 0.25 mg Aspirin (Ecotrin) 81 mg PO DAILY [facility] Last Admin: 07/18/19 08:40 Dose: 81 mg Bisacodyl (Dulcolax) 10 mg ND BID [facility] Last Admin: 07/18/19 08:40 Dose: 10 mg Coenzyme Q10 (Coenzyme Q10) 200 mg PO DAILY [facility] Last Admin: 07/18/19 08:41 Dose: 200 mg Cyanocobalamin (Vitamin B-12) 1,000 mcg PO DAILY [facility] Last Admin: 07/18/19 08:41 Dose: 1,000 mcg Dextrose/Water (Dextrose 50%) 25 gm SLOW IVP PRN PRN PRN Reason: Hypoglycemia Doxycycline Hyclate (Vibramycin) 100 mg PO BID [facility] Stop: 07/23/19 09:01 Last Admin: 07/18/19 08:40 Dose: 100 mg Furosemide (Lasix) 40 mg PO 0900,1400 [facility] Last Admin: 07/18/19 14:19 Dose: 40 mg Glucagon (Glucagon) 1 mg IM PRN PRN PRN Reason: Hypoglycemia Guaifenesin (Robitussin Sf) 100 mg PO Q4H PRN PRN Reason: Cough Last Admin: 07/11/19 01:36 Dose: 100 mg Dextrose/Water (D5w) 1,000 mls @ 0 mls/hr IV .Q0M PRN PRN Reason: Hypoglycemia Lidocaine HCl/Dextrose (Lidocaine 2 Gm/D5w 500 Ml) 500 mls @ 0 mls/hr IVPB INF KELLY; Protocol Last Admin: 07/11/19 01:16 Dose: 500 mls Nitroglycerin/Dextrose (Nitroglycerin 50 Mg/250 Ml Bot) 250 mls @ 0 mls/hr IVPB INF [facility]; Protocol Insulin Glargine 10 units/ (Miscellaneous Medication) 0.1 mls @ 0 mls/hr SC HS [facility] Last Admin: 07/17/19 20:23 Dose: 0.1 mls Levothyroxine Sodium (Synthroid) 75 mcg PO 0600 [facility] Last Admin: 07/18/19 05:39 Dose: 75 mcg Magnesium Hydroxide (Milk Of Magnesium) 30 ml PO DAILYPRN PRN PRN Reason: Constipation Magnesium Oxide (Magnesium Oxide) 400 mg PO DAILY [facility] Last Admin: 07/18/19 08:40 Dose: 400 mg Methylnaltrexone [place] (Relistor) 12 mg SC Q48H [facility] Last Admin: 07/16/19 22:17 Dose: Not Given Nitroglycerin (Nitrostat) 0.4 mg SL Q5MIN PRN PRN Reason: Chest Pain Ondansetron HCl (Zofran) 4 mg SLOW IVP Q6H PRN PRN Reason: Nausea/Vomiting Last Admin: 07/18/19 00:25 Dose: 4 mg Pantoprazole Sodium (Protonix) 40 mg PO DAILY [facility] Last Admin: 07/18/19 08:41 Dose: 40 mg Potassium Chloride (K-Dur) 20 meq PO BID[facility] Last Admin: 07/18/19 08:40 Dose: 20 meq Sodium Chloride ([place] Nasal [place] 0.65%) 1 ml EA NARE TID [facility] Last Admin: 07/18/19 14:21 Dose: Not Given Sodium Chloride (Flush - Normal Saline) 10 ml IVF Q12HR KELLY Last Admin: 07/18/19 08:40 Dose: 10 ml Sodium Chloride (Flush - Normal Saline) 10 ml IVF PRN PRN PRN Reason: Saline Flush Last Admin: 07/18/19 00:25 Dose: 10 ml Tramadol HCl (Ultram) 50 mg PO Q4H PRN PRN Reason: Moderate Pain (4-6) Last Admin: 07/18/19 14:19 Dose: 50 mg Vital Signs & Weight: Vital Signs Temp Pulse Resp BP BP Pulse Ox 07/18/19 14:22 121/56 L 07/18/19 11:14 98.0 F 70 20 136/63 98 07/18/19 07:24 97.8 F 71 16 133/61 99 07/18/19 03:57 98 07/18/19 03:12 98.2 F 72 16 139/61 98 Weight 162 lb 4.163 oz - Medication Contraindications No Anticoagulant reason: Anticoagulant not tolerated - Physical Exam General: alert & oriented x3 HEENT: mucus membranes moist Neck: supple neck Cardiac: regular rate and rhythm, S1/S2 Lungs: decreased breath sounds Extremities: no edema - Labs Result Diagrams: 07/10/19 04:01 07/18/19 04:08 Troponin/CKMB CK-MB (CK-2) 1.6 ng/mL (0-6.6) 07/08/19 16:17 Troponin I 0.060 ng/mL (< 0.028) H 07/10/19 04:01 - Telemetry Sinus rhythms and dysrhythmias: other (A paced) - Assessment/Plan Assessment/Plan: 1. [place]ade-like arrhythmia possible 2/2 Amiodarone - no recurrent arrhythmia; Keep K level 4 and Mag level > 2; avoid Amiodarone and other QT prolonging agents. 2. Parox Afib/AT in past - well controlled HR; On tele; if recurrent atrial arrhythmias are seen, she may be considered for AV kash ablation. On ASA 81mg qd due to hx of NOAC induced GI bleed in past (CHADS-VASC score with age, gender , hypertension, diabetes, coronary) 3. CAD with hx of CABG x 3 in 2000 and redo CABG x1 in 2002. 4. HTN - stable 5. CKD - stable 6. COPD - stable with NC 7. Hypothyroidism 8. DM type 2 9. 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
--- NOTE | 2019-07-18 16:02 | PDOC.HOSPP ---
- Subjective Subjective: Seen and examined. Continues to clinically improved. Denies chest pain, palpitations, or shortness of breath. We have had fluctuations in her blood sugar, I will adjust her long-acting insulin to two smaller doses to help even out her peaks and troughs. Patient tells me she is sensitive to short acting sliding-scale and has bottomed her out in the past. We will ask input for him physical therapy and occupational therapy, the patient will likely require a short course of inpatient rehabilitation at long-term facility versus swing bed. - Objective Vital Signs & Weight: Vital Signs (12 hours) Temp Pulse Resp BP BP Pulse Ox 07/18/19 15:17 98.0 F 70 20 138/62 99 07/18/19 14:22 121/56 L 07/18/19 11:14 98.0 F 70 20 136/63 98 07/18/19 07:24 97.8 F 71 16 133/61 99 Weight Weight 162 lb 4.163 oz Most Recent Monitor Data Heart Rate from ECG 82 NIBP 125/76 NIBP BP-Mean 92 Respiration from ECG 22 SpO2 96 I&O: 07/17/19 07/18/19 07/19/19 06:59 06:59 06:59 Intake Total 840 660 Output Total 820 1000 Balance 20 -340 Result Diagrams: 07/10/19 04:01 07/18/19 04:08 Additional Labs: Accuchecks 07/18/19 07/18/19 07/17/19 10:50 05:45 20:26 POC Glucose 209 H 131 H 300 H 07/17/19 17:17 POC Glucose 140 H Radiology Reviewed by me: Yes Hospitalist ROS - Review of Systems All other systems reviewed; all pertinent +/- noted in HPI/Subj - Medication Medications: Active Medications Generic Name Dose Route Start Last Admin Trade Name Freq PRN Reason Stop Dose Admin Acetaminophen/Codeine Phosphate 2 tab 07/09/19 08:21 07/13/19 20:05 Tylenol #3 PO 2 tab Q4H PRN Administration Moderate Pain (4-6) Allopurinol 100 mg 07/08/19 09:00 07/18/19 08:40 Zyloprim PO 100 mg BID KELLY Administration Alprazolam 0.25 mg 07/10/19 13:45 07/18/19 03:20 Xanax PO 0.25 mg BIDPRN PRN Administration Anxiety Aspirin 81 mg 07/08/19 09:00 07/18/19 08:40 Ecotrin PO 81 mg DAILY KELLY Administration Bisacodyl 10 mg 07/15/19 09:00 07/18/19 08:40 Dulcolax [place] 10 mg BID KELLY Administration Coenzyme Q10 200 mg 07/12/19 09:00 07/18/19 08:41 Coenzyme Q10 PO 200 mg DAILY KELLY Administration Cyanocobalamin 1,000 mcg 07/08/19 09:00 07/18/19 08:41 Vitamin B-12 PO 1,000 mcg DAILY KELLY Administration Doxycycline Hyclate 100 mg 07/16/19 21:00 07/18/19 08:40 Vibramycin PO 07/23/19 09:01 100 mg BID KELLY Administration Furosemide 40 mg 07/09/19 09:00 07/18/19 14:19 Lasix PO 40 mg 0900,1400 KELLY Administration Guaifenesin 100 mg 07/11/19 01:23 07/11/19 01:36 Robitussin Sf PO 100 mg Q4H PRN Administration Cough Lidocaine HCl/Dextrose 500 mls @ 0 mls/hr 07/09/19 08:30 07/11/19 01:16 Lidocaine 2 Gm/D5w 500 Ml IVPB 500 mls INF KELLY Administration Protocol Titrate Insulin Glargine 10 units/ 0.1 mls @ 0 mls/hr 07/11/19 21:00 07/17/19 20:23 Miscellaneous Medication SC 0.1 mls HS KELLY Administration Levothyroxine Sodium 75 mcg 07/17/19 06:00 07/18/19 05:39 Synthroid PO 75 mcg 0600 [facility] Administration Magnesium Oxide 400 mg 07/14/19 09:00 07/18/19 08:40 Magnesium Oxide PO 400 mg DAILY [facility] Administration Methylnaltrexone [place] 12 mg 07/14/19 22:00 07/16/19 22:17 Relistor SC Not Given Q48H [facility] Ondansetron HCl 4 mg 07/10/19 04:48 07/18/19 00:25 Zofran SLOW IVP 4 mg Q6H PRN Administration Nausea/Vomiting Pantoprazole Sodium 40 mg 07/12/19 09:00 07/18/19 08:41 Protonix PO 40 mg DAILY [facility] Administration Potassium Chloride 20 meq 07/16/19 17:00 07/18/19 08:40 K-Dur PO 20 meq BID-WM KELLY Administration Sodium Chloride 1 ml 07/08/19 15:00 07/18/19 14:21 [place] Nasal [place] 0.65% EA NARE Not Given TID KELLY Sodium Chloride 10 ml 07/12/19 09:00 07/18/19 08:40 Flush - Normal Saline IVF 10 ml Q12HR KELLY Administration Sodium Chloride 10 ml 07/12/19 08:58 07/18/19 00:25 Flush - Normal Saline IVF 10 ml PRN PRN Administration Saline Flush Tramadol HCl 50 mg 07/14/19 09:21 07/18/19 14:19 Ultram PO 50 mg Q4H PRN Administration Moderate Pain (4-6) - Exam General Appearance: NAD, awake alert Eye: PERRL ENT: normocephalic atraumatic, moist mucosa Neck: supple, symmetric, no lymphadenopathy Heart: no murmur, no gallops, no rubs Heart - other findings: Left upper chest PPM site well healing Respiratory: CTAB, no wheezes, no rales, no ronchi, normal chest expansion, no tachypnea Gastrointestinal: soft, non-tender, no guarding, no rigidity Extremities: 1+ LE edema Skin: no lesions, no rashes Neurological: cranial nerve grossly intact, no focal deficits Musculoskeletal: generalized weakness Psychiatric: normal behavior, A&O x 3 Hosp A/P (1) Gaseous abdominal distention Code(s): R14.0 - ABDOMINAL DISTENSION (GASEOUS) Status: Acute (2) Pain Code(s): R52 - PAIN, UNSPECIFIED Status: Acute (3) Torsades de pointes Code(s): I47.2 - VENTRICULAR TACHYCARDIA Status: Acute (4) Congestive heart failure Code(s): I50.9 - HEART FAILURE, UNSPECIFIED Status: Acute (5) Kidney disease Code(s): N28.9 - DISORDER OF KIDNEY AND URETER, UNSPECIFIED Status: Acute (6) Acute and chronic respiratory failure with hypoxia Code(s): J96.21 - ACUTE AND CHRONIC RESPIRATORY FAILURE WITH HYPOXIA Status: Chronic (7) Acute on chronic diastolic ACC/AHA stage C congestive heart failure Code(s): I50.33 - ACUTE ON CHRONIC DIASTOLIC (CONGESTIVE) HEART FAILURE Status : Chronic (8) Atrial flutter Code(s): I48.92 - UNSPECIFIED ATRIAL FLUTTER Status: Chronic (9) CAD (coronary artery disease) Code(s): I25.10 - ATHSCL HEART DISEASE OF [place] CORONARY ARTERY W/O ANG PCTRS Status: Chronic Qualifiers: Coronary Disease-Associated Artery/Lesion type: bypass graft [place] vs. transplanted heart: [place] heart Associated angina: without angina Qualified Code(s): I25.810 - Atherosclerosis of coronary artery bypass graft(s) without angina pectoris (10) Chronic diastolic heart failure Code(s): I50.32 - CHRONIC DIASTOLIC (CONGESTIVE) HEART FAILURE Status: Chronic (11) Chronic respiratory failure with hypoxia Code(s): J96.11 - CHRONIC RESPIRATORY FAILURE WITH HYPOXIA Status: Chronic (12) Diabetes type 2, controlled Code(s): E11.9 - TYPE 2 DIABETES MELLITUS WITHOUT COMPLICATIONS Status: Chronic Qualifiers: Diabetes mellitus vermin exterminator insulin use: with vermin exterminator use Diabetes mellitus complication status: without complication Qualified Code(s): E11.9 - Type 2 diabetes mellitus without complications; Z79.4 - vermin exterminator (current) use of insulin (13) HLD (hyperlipidemia) Code(s): E78.5 - HYPERLIPIDEMIA, UNSPECIFIED Status: Chronic Qualifiers: Hyperlipidemia type: pure hypercholesterolemia Qualified Code(s): E78.00 - Pure hypercholesterolemia, unspecified; E78.0 - Pure hypercholesterolemia (14) Hypothyroidism Code(s): E03.9 - HYPOTHYROIDISM, UNSPECIFIED Status: Chronic Qualifiers: Hypothyroidism type: unspecified Qualified Code(s): E03.9 - Hypothyroidism , unspecified (15) Sick sinus syndrome Code(s): I49.5 - SICK SINUS SYNDROME Status: Chronic (16) Anemia Code(s): D64.9 - ANEMIA, UNSPECIFIED Status: Resolved Qualifiers: Anemia type: unspecified type - Plan Plan: medical unit with telemetry PT/OT matheus Will likely require a short course in inpatient therapy to regain her strength and independence SNF vs Swing bed placement EP subspecialty of cardiology consultation, recommendations appreciated cardiology consultation, recommendations appreciated gastroenterology consultation, recommendations appreciated status post permanent pacemaker revision, lead adjustment cardiomyopathy regimen as able patient is moving her bowels after medication adjustment by gastroenterology metabolic panel within normal limits this a.m. continue other home medications as able blood pressure control blood sugar control, adjust long acting insulin G.I. prophylaxis DVT prophylaxis
[2019-07-18] MEDS: Methylnaltrexone 12 MG/0.6 ML VIAL SC SCH (22:31)
[2019-07-18] MEDS: Insulin Glargine 10 UNITS in Pre-Filled Syringe SC SCH (22:32)
[2019-07-19] MEDS: Bisacodyl 10 MG SUPP PR SCH ×3 (01:09→21:42)
[2019-07-19] MEDS: Sodium Chloride 0.65% Nasal 44 ML BOT EA NARE SCH ×4 (01:09→21:52)
[2019-07-19 04:38] LABS: Anion Gap 12 mmol/L (10-20); BUN (Urea Nitrogen) 21 mg/dL (9.8-20.1); Calc. Creatinine Clearance 44 mL/min (70-130); Calcium 9.2 mg/dL (7.8-10.44); Carbon Dioxide 33 mmol/L (23-31); Chloride 98 mmol/L (98-107); Estimated GFR-MDRD 47; Glucose 134 mg/dL (83-110); Magnesium 1.7 mg/dL (1.6-2.6); Sodium 139 mmol/L (136-145)
[2019-07-19] MEDS: Levothyroxine Sodium 75 MCG TAB PO SCH (05:38)
[2019-07-19] MEDS: Ubidecarenone 50 MG CAP PO SCH (08:54)
[2019-07-19] MEDS: Doxycycline 100 MG CAP PO SCH ×2 (08:54→21:42)
[2019-07-19] MEDS: Cyanocobalamin (Vitamin B-12) 1,000 MCG TAB PO SCH (08:54)
[2019-07-19] MEDS: Aspirin 81 mg Enteric Coated Tablet PO SCH (08:54)
[2019-07-19] MEDS: Allopurinol 100 MG TAB PO SCH ×2 (08:54→21:42)
[2019-07-19] MEDS: Magnesium Oxide 400 MG TAB PO SCH ×2 (08:55→21:42)
[2019-07-19] MEDS: Potassium Chloride 20 MEQ TAB PO SCH ×2 (08:55→18:09)
[2019-07-19] MEDS: Furosemide 20 MG TAB PO SCH ×2 (08:55→14:18)
--- NOTE | 2019-07-19 10:48 | PRG ---
DATE OF SERVICE: 07/19/2019 SUBJECTIVE: The patient complains of a distended abdomen. She says her breathing is okay. OBJECTIVE: VITAL SIGNS: Temperature 96.9, pulse 81, respirations 17, O2 saturation 96% on 2.5 L, and blood pressure 115/55. HEENT: Shows no abnormalities. NECK: Adenopathy or JVD. CHEST: Clear. CARDIAC: S1 and S2 regular. ABDOMEN: Protuberant, slightly distended. Bowel sounds hypoactive. EXTREMITIES: No edema. ASSESSMENT: 1. Status post ventricular tachycardia with sternal and rib fractures after CPR. 2. Chronic obstructive pulmonary disease. 3. Chronic renal insufficiency. 4. Distended abdomen. 5. Deconditioning. PLAN: Continue current therapy. We will follow. Job ID: [id number]
[2019-07-19 13:56] VITALS: BMI 25.8
--- NOTE | 2019-07-19 14:41 | PDOC.HOSPP ---
- Subjective Encounter Date: 07/19/19 Encounter Time: 11:15 Subjective: is awake and oriented well no sob has not had a good bm, is passing flatus - Objective Vital Signs & Weight: Vital Signs (12 hours) Temp Pulse Resp BP BP Pulse Ox 07/19/19 08:00 96.9 F L 71 17 115/55 L 96 07/19/19 05:06 97 07/19/19 03:26 98.1 F 70 18 130/60 97 Weight Admit Weight 157 lb 3.033 oz Weight 160 lb 4.417 oz Most Recent Monitor Data Heart Rate from ECG 82 NIBP 125/76 NIBP BP-Mean 92 Respiration from ECG 22 SpO2 96 I&O: 07/18/19 07/19/19 07/20/19 06:59 06:59 06:59 Intake Total 660 740 Output Total 1000 700 Balance -340 40 Result Diagrams: 07/10/19 04:01 07/19/19 03:51 Additional Labs: Accuchecks 07/19/19 07/19/19 07/18/19 10:52 05:54 20:11 POC Glucose 178 H 125 H 204 H 07/18/19 17:03 POC Glucose 149 H Hospitalist ROS - Medication Medications: Active Medications Generic Name Dose Route Start Last Admin Trade Name Freq PRN Reason Stop Dose Admin Allopurinol 100 mg 07/08/19 09:00 07/19/19 08:54 Zyloprim PO 100 mg BID KELLY Administration Alprazolam 0.25 mg 07/10/19 13:45 07/18/19 03:20 Xanax PO 0.25 mg BIDPRN PRN Administration Anxiety Aspirin 81 mg 07/08/19 09:00 07/19/19 08:54 Ecotrin PO 81 mg DAILY KELLY Administration Bisacodyl 10 mg 07/15/19 09:00 07/19/19 08:56 Dulcolax [place] 10 mg BID KELLY Administration Coenzyme Q10 200 mg 07/12/19 09:00 07/19/19 08:54 Coenzyme Q10 PO 200 mg DAILY KELLY Administration Cyanocobalamin 1,000 mcg 07/08/19 09:00 07/19/19 08:54 Vitamin B-12 PO 1,000 mcg DAILY KELLY Administration Doxycycline Hyclate 100 mg 07/16/19 21:00 07/19/19 08:54 Vibramycin PO 07/23/19 09:01 100 mg BID KELLY Administration Furosemide 40 mg 07/09/19 09:00 07/19/19 14:18 Lasix PO 40 mg 0900,1400 KELLY Administration Guaifenesin 100 mg 07/11/19 01:23 07/11/19 01:36 Robitussin Sf PO 100 mg Q4H PRN Administration Cough Lidocaine HCl/Dextrose 500 mls @ 0 mls/hr 07/09/19 08:30 07/11/19 01:16 Lidocaine 2 Gm/D5w 500 Ml IVPB 500 mls INF KELLY Administration Protocol Titrate Insulin Glargine 10 units/ 0.1 mls @ 0 mls/hr 07/11/19 21:00 07/18/19 22:32 Miscellaneous Medication SC 0.1 mls HS KELLY Administration Levothyroxine Sodium 75 mcg 07/17/19 06:00 07/19/19 05:38 Synthroid PO 75 mcg 0600 KELLY Administration Magnesium Oxide 400 mg 07/19/19 09:00 07/19/19 08:55 Magnesium Oxide PO 400 mg BID KELLY Administration Methylnaltrexone [place] 12 mg 07/14/19 22:00 07/18/19 22:31 Relistor SC 12 mg Q48H KELLY Administration Ondansetron HCl 4 mg 07/10/19 04:48 07/18/19 00:25 Zofran SLOW IVP 4 mg Q6H PRN Administration Nausea/Vomiting Pantoprazole Sodium 40 mg 07/12/19 09:00 07/19/19 08:56 Protonix PO 40 mg DAILY KELLY Administration Potassium Chloride 20 meq 07/16/19 17:00 07/19/19 08:55 K-Dur PO Not Given BID-WM KELLY Sodium Chloride 1 ml 07/08/19 15:00 07/19/19 13:01 [place] Nasal [place] 0.65% EA NARE Not Given TID KELLY Sodium Chloride 10 ml 07/12/19 09:00 07/19/19 08:56 Flush - Normal Saline IVF 10 ml Q12HR KELLY Administration Sodium Chloride 10 ml 07/12/19 08:58 07/18/19 00:25 Flush - Normal Saline IVF 10 ml PRN PRN Administration Saline Flush Tramadol HCl 50 mg 07/14/19 09:21 07/18/19 14:19 Ultram PO 50 mg Q4H PRN Administration Moderate Pain (4-6) - Exam General Appearance: awake alert Eye: PERRL, anicteric sclera ENT: no oropharyngeal lesions, moist mucosa Neck: supple, no JVD Heart: RRR, no murmur Respiratory: no wheezes, no rales Gastrointestinal: soft, non-tender, non-distended, normal bowel sounds Extremities: no cyanosis, no edema Neurological: cranial nerve grossly intact, no focal deficits Psychiatric: normal affect, A&O x 3 Hosp A/P (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 transplanted heart: [place] heart Associated angina: without angina Qualified Code(s): I25.810 - Atherosclerosis of coronary artery bypass graft(s) without angina pectoris (6) Diabetes type 2, controlled Code(s): E11.9 - TYPE 2 DIABETES MELLITUS WITHOUT COMPLICATIONS Status: Chronic Qualifiers: Diabetes mellitus nursing home insulin use: with nursing home use Diabetes mellitus complication status: without complication Qualified Code(s): E11.9 - Type 2 diabetes mellitus without complications; Z79.4 - correction (current) use of insulin (7) HLD (hyperlipidemia) Code(s): E78.5 - HYPERLIPIDEMIA, UNSPECIFIED Status: Chronic Qualifiers: Hyperlipidemia type: pure hypercholesterolemia Qualified Code(s): E78.00 - Pure hypercholesterolemia, unspecified; E78.0 - Pure hypercholesterolemia (8) Hypothyroidism Code(s): E03.9 - HYPOTHYROIDISM, UNSPECIFIED Status: Chronic Qualifiers: Hypothyroidism type: unspecified Qualified Code(s): E03.9 - Hypothyroidism , unspecified - Plan is on dulcolax suppository bid, methylnaltrexone, liq diet has not ambulated this admission from 11 days continue doxy, lantus, asp, allopurinol, lasix, synthroid d/w daughter and patient at bedside encouraged to ambulate in hallway as tolerated diet per GI advice, is currently on full liq diet will need swing bed for dc plan once GI issues are resolved d/w , is cleared for dc
[2019-07-19] MEDS: Insulin Glargine 10 UNITS in Pre-Filled Syringe SC SCH (21:42)
[2019-07-19] MEDS: ALPRAZolam 0.25 MG TAB PO PRN (21:45)
[2019-07-20 04:57] LABS: Anion Gap 13 mmol/L (10-20); BUN (Urea Nitrogen) 18 mg/dL (9.8-20.1); Calc. Creatinine Clearance 46 mL/min (70-130); Carbon Dioxide 33 mmol/L (23-31); Chloride 98 mmol/L (98-107); Estimated GFR-MDRD 50; Glucose 115 mg/dL (83-110); Magnesium 1.6 mg/dL (1.6-2.6); Potassium 3.8 mmol/L (3.5-5.1); Sodium 140 mmol/L (136-145)
[2019-07-20] MEDS: Levothyroxine Sodium 75 MCG TAB PO SCH (05:14)
--- NOTE | 2019-07-20 06:01 | PRG ---
DATE OF SERVICE: 07/19/2019 SUBJECTIVE: Ms. Pearson seems to be doing well over the weekend. She continues to be atrially paced, but not in the ventricles. OBJECTIVE DATA: VITAL SIGNS: Blood pressure is 115/55, heart rate 71, respirations 17, and temperature 96.9 degrees Fahrenheit. GENERAL: Alert and oriented woman, in no apparent distress. NECK: Supple. Jugular veins not distended. CHEST: Coarse without crackles. HEART: Sounds are regular to rate and rhythm. No murmur or gallop. ABDOMEN: Benign. Bowel sounds positive. EXTREMITIES: Lower extremities without edema, clubbing, or cyanosis. DATABASE: Pacemaker interrogation from 07/17/2019, reveals a functioning dual-chamber Med[employer]onic Advisa pacemaker, lead parameters are adequate, impedance 380 ohms, sensing 1 mV in the atrium, 5.4 mV in the right ventricle, capture thresholds 0.5 V at 0.4 milliseconds. Chest x-ray shows left-sided transvenous pacemaker without complication. ASSESSMENT AND PLAN: Ms. Pearson is a pleasant 83-year-old woman with history of recurrent atrial arrhythmias, gastrointestinal bleed related to anemia making anticoagulation impossible, who was admitted with torsade like arrhythmias, it seems to have subsided after stopping amiodarone and transient lidocaine treatment. Currently, she maintains normal rhythm. Atrial lead found to be suboptimally functioning and therefore, the atrial lead revision was performed on the 15 of July. She recovered well from that. She continues on observation from primary service. She is taking vibramycin for prophylaxis for a week. At this point, I would continue current management. She is a poor anticoagulation candidate. If GI Service agrees and resumption of anticoagulation could be considered, possible Watchman procedure in the future could be considered. She is a poor candidate for Lariat, has prior thoracotomy surgery. For now, though she is in sinus rhythm, monitoring of recurrent atrial arrhythmias was advised. She also has limited anti-arrhythmic choices and history of torsade, renal dysfunction, and coronary artery disease. Dual-chamber pacemaker status post atrial lead revision. Routine followup in the office for wound check is planned. Job ID: [id number] [facility]
[2019-07-20] MEDS: Doxycycline 100 MG CAP PO SCH ×2 (08:06→21:58)
[2019-07-20] MEDS: Magnesium Oxide 400 MG TAB PO SCH ×3 (08:06→14:46)
[2019-07-20] MEDS: Furosemide 20 MG TAB PO SCH ×2 (08:06→14:46)
[2019-07-20] MEDS: Aspirin 81 mg Enteric Coated Tablet PO SCH (08:06)
[2019-07-20] MEDS: Allopurinol 100 MG TAB PO SCH ×2 (08:06→21:58)
[2019-07-20] MEDS: Ubidecarenone 50 MG CAP PO SCH (08:07)
[2019-07-20] MEDS: Potassium Chloride 20 MEQ TAB PO SCH ×2 (08:07→14:49)
[2019-07-20] MEDS: Bisacodyl 10 MG SUPP PR SCH ×3 (08:07→21:58)
[2019-07-20] MEDS: Cyanocobalamin (Vitamin B-12) 1,000 MCG TAB PO SCH (08:08)
[2019-07-20] MEDS: Sodium Chloride 0.65% Nasal 44 ML BOT EA NARE SCH ×3 (08:08→22:01)
[2019-07-20] MEDS ORDERED: Iopamidol-370 76% 500 ML 1 ML ONE (08:54)
--- NOTE | 2019-07-20 12:36 | PDOC.HOSPP ---
- Subjective Encounter Date: 07/20/19 Encounter Time: 10:00 Subjective: no sob or nausea c/o abd distension with bloating - Objective Vital Signs & Weight: Vital Signs (12 hours) Temp Pulse Resp BP BP Pulse Ox 07/20/19 11:16 98.6 F 68 20 126/60 98 07/20/19 08:00 96.7 F L 78 17 140/63 99 07/20/19 06:58 99 07/20/19 03:13 97.5 F L 69 18 146/65 H 99 Weight Admit Weight 157 lb 3.033 oz Weight 160 lb Most Recent Monitor Data Heart Rate from ECG 82 NIBP 125/76 NIBP BP-Mean 92 Respiration from ECG 22 SpO2 96 I&O: 07/19/19 07/20/19 07/21/19 06:59 06:59 06:59 Intake Total 740 760 Output Total 700 725 Balance 40 35 Result Diagrams: 07/10/19 04:01 07/20/19 04:24 Additional Labs: Accuchecks 07/20/19 07/20/19 07/19/19 10:50 05:56 20:43 POC Glucose 134 H 132 H 228 H 07/19/19 16:56 POC Glucose 152 H Hospitalist ROS - Medication Medications: Active Medications Generic Name Dose Route Start Last Admin Trade Name Freq PRN Reason Stop Dose Admin Allopurinol 100 mg 07/08/19 09:00 07/20/19 08:06 Zyloprim PO 100 mg BID KELLY Administration Alprazolam 0.25 mg 07/10/19 13:45 07/19/19 21:45 Xanax PO 0.25 mg BIDPRN PRN Administration Anxiety Aspirin 81 mg 07/08/19 09:00 07/20/19 08:06 Ecotrin PO 81 mg DAILY KELLY Administration Bisacodyl 10 mg 07/15/19 09:00 07/20/19 08:07 Dulcolax [place] 10 mg BID KELLY Administration Coenzyme Q10 200 mg 07/12/19 09:00 07/20/19 08:07 Coenzyme Q10 PO 200 mg DAILY KELLY Administration Cyanocobalamin 1,000 mcg 07/08/19 09:00 07/20/19 08:08 Vitamin B-12 PO 1,000 mcg DAILY KELLY Administration Doxycycline Hyclate 100 mg 07/16/19 21:00 07/20/19 08:06 Vibramycin PO 07/23/19 09:01 100 mg BID KELLY Administration Furosemide 40 mg 07/09/19 09:00 07/20/19 08:06 Lasix PO 40 mg 0900,1400 KELLY Administration Guaifenesin 100 mg 07/11/19 01:23 07/11/19 01:36 Robitussin Sf PO 100 mg Q4H PRN Administration Cough Lidocaine HCl/Dextrose 500 mls @ 0 mls/hr 07/09/19 08:30 07/11/19 01:16 Lidocaine 2 Gm/D5w 500 Ml IVPB 500 mls INF KELLY Administration Protocol Titrate Insulin Glargine 10 units/ 0.1 mls @ 0 mls/hr 07/11/19 21:00 07/19/19 21:42 Miscellaneous Medication SC 0.1 mls HS KELLY Administration Levothyroxine Sodium 75 mcg 07/17/19 06:00 07/20/19 05:14 Synthroid PO 75 mcg 0600 KELLY Administration Magnesium Oxide 800 mg 07/20/19 09:00 07/20/19 11:49 Magnesium Oxide PO Not Given DAILY KELLY Methylnaltrexone [place] 12 mg 07/14/19 22:00 07/18/19 22:31 Relistor SC 12 mg Q48H KELLY Administration Ondansetron HCl 4 mg 07/10/19 04:48 07/18/19 00:25 Zofran SLOW IVP 4 mg Q6H PRN Administration Nausea/Vomiting Pantoprazole Sodium 40 mg 07/12/19 09:00 07/20/19 08:06 Protonix PO 40 mg DAILY KELLY Administration Sodium Chloride 1 ml 07/08/19 15:00 07/20/19 08:08 [place] Nasal [place] 0.65% EA NARE Not Given TID KELLY Sodium Chloride 10 ml 07/12/19 09:00 07/20/19 08:09 Flush - Normal Saline IVF 10 ml Q12HR KELLY Administration Sodium Chloride 10 ml 07/12/19 08:58 07/18/19 00:25 Flush - Normal Saline IVF 10 ml PRN PRN Administration Saline Flush Tramadol HCl 50 mg 07/14/19 09:21 07/18/19 14:19 Ultram PO 50 mg Q4H PRN Administration Moderate Pain (4-6) - Exam General Appearance: awake alert Eye: PERRL, anicteric sclera ENT: no oropharyngeal lesions, moist mucosa Neck: supple, no JVD Heart: RRR, no gallops Respiratory: no wheezes, no rales Gastrointestinal: soft, non-tender, normal bowel sounds, distended Extremities: no cyanosis, no edema Neurological: cranial nerve grossly intact, no focal deficits Psychiatric: normal affect, A&O x 3 Hosp A/P (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 transplanted heart: [place] heart Associated angina: without angina Qualified Code(s): I25.810 - Atherosclerosis of coronary artery bypass graft(s) without angina pectoris (6) Diabetes type 2, controlled Code(s): E11.9 - TYPE 2 DIABETES MELLITUS WITHOUT COMPLICATIONS Status: Chronic Qualifiers: Diabetes mellitus detention insulin use: with detention use Diabetes mellitus complication status: without complication Qualified Code(s): E11.9 - Type 2 diabetes mellitus without complications; Z79.4 - senior living (current) use of insulin (7) HLD (hyperlipidemia) Code(s): E78.5 - HYPERLIPIDEMIA, UNSPECIFIED Status: Chronic Qualifiers: Hyperlipidemia type: pure hypercholesterolemia Qualified Code(s): E78.00 - Pure hypercholesterolemia, unspecified; E78.0 - Pure hypercholesterolemia (8) Hypothyroidism Code(s): E03.9 - HYPOTHYROIDISM, UNSPECIFIED Status: Chronic Qualifiers: Hypothyroidism type: unspecified Qualified Code(s): E03.9 - Hypothyroidism , unspecified - Plan is on dulcolax suppository bid, methylnaltrexone, liq diet, will get CT abd and pelvis with ongoing distention/bloating and pain ambulated around 10ft with PT continue doxy, lantus, asp, allopurinol, lasix, synthroid encouraged to ambulate in hallway as tolerated diet per GI advice, is currently on full liq diet will need swing bed for dc plan once GI issues are resolved
--- NOTE | 2019-07-20 15:15 | PDOC.EP ---
- Subjective Date: 07/20/19 Time: 15:13 Interval History: follow-up after atrial lead pacemaker revision. she continues to struggle with GI issues of distension and bloating. She reports some tenderness at her pacemaker revision site but overall is doing well after her procedure. - Review of Systems Respiratory: reports: shortness of breath. denies: cough, pleuritic pain, wheezing Cardiology: denies: chest pain, light headedness, passing out Gastrointestinal: reports: abdominal pain. denies: diarrhea, hematochezia, melena - Objective Allergies/Adverse Reactions: Allergies Allergy/AdvReac Type Severity Reaction Status Date / Time nitrofurantoin Allergy Rash Verified 07/08/19 02:32 penicillin V Allergy Rash Verified 07/08/19 02:32 Penicillins Allergy Rash Verified 07/08/19 02:32 pentazocine Allergy HALLUCINATI Verified 07/08/19 02:32 ONS pentazocine lactate Allergy Verified 07/08/19 02:32 [From [place]] prednisone Allergy Verified 07/08/19 02:32 rivaroxaban [From Xarelto] Allergy Verified 07/08/19 02:32 simvastatin [From Zocor] Allergy Verified 07/08/19 02:32 MYCINS Allergy Uncoded 07/08/19 02:32 Current Medications Allopurinol (Zyloprim) 100 mg PO BID [facility] Last Admin: 07/20/19 08:06 Dose: 100 mg Aspirin (Ecotrin) 81 mg PO DAILY [facility] Last Admin: 07/20/19 08:06 Dose: 81 mg Bisacodyl (Dulcolax) 10 mg [place] BID [facility] Last Admin: 07/20/19 08:07 Dose: 10 mg Coenzyme Q10 (Coenzyme Q10) 200 mg PO DAILY [facility] Last Admin: 07/20/19 08:07 Dose: 200 mg Cyanocobalamin (Vitamin B-12) 1,000 mcg PO DAILY [facility] Last Admin: 07/20/19 08:08 Dose: 1,000 mcg Dextrose/Water (Dextrose 50%) 25 gm SLOW IVP PRN PRN PRN Reason: Hypoglycemia Doxycycline Hyclate (Vibramycin) 100 mg PO BID [facility] Stop: 07/23/19 09:01 Last Admin: 07/20/19 08:06 Dose: 100 mg Furosemide (Lasix) 40 mg PO 0900,1400 [facility] Last Admin: 06/02/20 14:46 Dose: 40 mg Glucagon (Glucagon) 1 mg IM PRN PRN PRN Reason: Hypoglycemia Guaifenesin (Robitussin Sf) 100 mg PO Q4H PRN PRN Reason: Cough Last Admin: 07/11/19 01:36 Dose: 100 mg Dextrose/Water (D5w) 1,000 mls @ 0 mls/hr IV .Q0M PRN PRN Reason: Hypoglycemia Lidocaine HCl/Dextrose (Lidocaine 2 Gm/D5w 500 Ml) 500 mls @ 0 mls/hr IVPB INF KELLY; Protocol Last Admin: 07/11/19 01:16 Dose: 500 mls Nitroglycerin/Dextrose (Nitroglycerin 50 Mg/250 Ml Bot) 250 mls @ 0 mls/hr IVPB INF [facility]; Protocol Insulin Glargine 10 units/ (Miscellaneous Medication) 0.1 mls @ 0 mls/hr SC HS [facility] Last Admin: 07/19/19 21:42 Dose: 0.1 mls Levothyroxine Sodium (Synthroid) 75 mcg PO 0600 [facility] Last Admin: 07/20/19 05:14 Dose: 75 mcg Magnesium Hydroxide (Milk Of Magnesium) 30 ml PO DAILYPRN PRN PRN Reason: Constipation Magnesium Oxide (Magnesium Oxide) 800 mg PO DAILY [facility] Last Admin: 07/20/19 11:49 Dose: Not Given Magnesium Oxide (Magnesium Oxide) 400 mg PO 1400 [facility] Last Admin: 07/20/19 14:46 Dose: 400 mg Methylnaltrexone Trezevant (Relistor) 12 mg SC Q48H [facility] Last Admin: 07/18/19 22:31 Dose: 12 mg Nitroglycerin (Nitrostat) 0.4 mg SL Q5MIN PRN PRN Reason: Chest Pain Ondansetron HCl (Zofran) 4 mg SLOW IVP Q6H PRN PRN Reason: Nausea/Vomiting Last Admin: 07/18/19 00:25 Dose: 4 mg Pantoprazole Sodium (Protonix) 40 mg PO DAILY [facility] Last Admin: 07/20/19 08:06 Dose: 40 mg Potassium Chloride (K-Dur) 40 meq PO QAM-WM [facility] Potassium Chloride (K-Dur) 20 meq PO 1400 [facility] Last Admin: 07/20/19 14:49 Dose: 20 meq Sodium Chloride ([place] Nasal [place] 0.65%) 1 ml EA NARE TID [facility] Last Admin: 07/20/19 14:47 Dose: Not Given Sodium Chloride (Flush - Normal Saline) 10 ml IVF Q12HR KELLY Last Admin: 07/20/19 08:09 Dose: 10 ml Sodium Chloride (Flush - Normal Saline) 10 ml IVF PRN PRN PRN Reason: Saline Flush Last Admin: 07/18/19 00:25 Dose: 10 ml Tramadol HCl (Ultram) 50 mg PO Q4H PRN PRN Reason: Moderate Pain (4-6) Last Admin: 07/18/19 14:19 Dose: 50 mg Vital Signs & Weight: Vital Signs Temp Pulse Pulse Pulse Resp BP BP 07/20/19 13:50 72 69 133/57 L 111/50 L 07/20/19 11:16 98.6 F 68 20 07/20/19 08:00 96.7 F L 78 17 07/20/19 06:58 BP BP Pulse Ox 07/20/19 13:50 07/20/19 11:16 126/60 98 07/20/19 08:00 140/63 99 07/20/19 06:58 99 Admit Weight 157 lb 3.033 oz Weight 160 lb I/O: I/O 07/19/19 07/20/19 07/21/19 06:59 06:59 06:59 Intake Total 740 760 Output Total 700 725 Balance 40 35 - Quality Measures Condition: Atrial Fibrillation/Flutter (hx or current) - Medication Contraindications No Anticoagulant reason: Medical contraindication - Physical Exam General: alert & oriented x3, no apparent distress, speech clear HEENT: mucus membranes moist, normocephaly Neck: supple neck, midline trachea, no lymphadenopathy Cardiology: regular rate and rhythm, PMI nondisplaced Lungs: clear to auscultation, no wheeze, rales, rhonchi Neurology: cranial nerve 2-12 intact, grossly intact Abdomen: unremarkable, active bowel sounds, no pulsations/bruits Skin: groin sites stable, left sided device, swelling. negative: hematoma - Chadsvasc Risk factors Age >75: 2 Female: 1 Risk Score: 3 - Labs Result Diagrams: 07/10/19 04:01 07/20/19 04:24 - EKG Interpretation EKG Method: Telemetry EKG shows: Sinus rhythm - Device Device: dual, pacemaker Device Result: [employer] - Assessment/Plan Assessment/Plan: 1. SSS 2. 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 TdP 4. Atrial fibrillation 5. QT prolongation Ms. Pearson is a pleasant 83-year-old woman with history of recurrent atrial arrhythmias, gastrointestinal bleed related to anemia making anticoagulation impossible, who was admitted with torsade like arrhythmias, it seems to have subsided after stopping amiodarone and transient lidocaine treatment. Currently, she maintains normal rhythm. Atrial lead found to be suboptimally functioning and therefore, the atrial lead revision was performed on the 15 of July. She recovered well from that. She continues on observation from primary service. She is taking vibramycin for prophylaxis for a week. At this point, I would continue current management. She is a poor anticoagulation candidate. If GI Service agrees and resumption of anticoagulation could be considered, possible Watchman procedure in the future could be considered. She is a poor candidate for Lariat, has prior thoracotomy surgery. For now, though she is in sinus rhythm, monitoring of recurrent atrial arrhythmias was advised. She also has limited anti-arrhythmic choices and history of torsade, renal dysfunction, and coronary artery disease. EP signing off.
--- NOTE | 2019-07-20 15:24 | CT ---
CT ABDOMEN AND PELVIS WITH IV CONTRAST: Date: 07/20/2019 INDICATION: 83-year-old female in the hospital for 12 days with three prior cardiac events requiring CPR. Patient currently on a liquid diet with difficulty in passing gas from the stomach. History of hysterectomy, cholecystectomy, and appendectomy. COMPARISON: CT abdomen and pelvis dated 04/18/2019 performed at [facility]. FINDINGS: There is a small right pleural effusion and right basilar atelectasis. There is mitral valvular prost hesis. There is a dual lead pacemaker. No focal hepatic lesion is evident. Gallbladder is surgically absent. Pancreas, adrenal glands, and s pleen appear within normal limits. There are small bilateral renal cysts and diffuse renal cortical t hinning. Larger cyst is again seen involving the inferior pole of the left kidney measuring approxima tely 2.3 cm. There is a small amount of gas within the bladder. A small amount of free fluid is present within the pelvis. The reproductive structures are surgically absent. There is a mild amount of liquid stool pr esent within the colon. There is diffuse mild anasarca. There is diffuse osteopenia. No definite acute osseous abnormality is evident. IMPRESSION: 1. Small right pleural effusion with mild ascites and anasarca. 2. Liquid stool seen within portions of the colon may reflect diarrheal state or mild colitis. 3. Bilateral renal cysts and diffuse renal cortical thinning. POS: BH
--- NOTE | 2019-07-20 20:45 | PRG ---
DATE OF SERVICE: 07/20/2019 SUBJECTIVE: Valorie Pearson is in no distress. She still is on liquid. OBJECTIVE: VITAL SIGNS: She is afebrile. Heart rate 72, respiratory rate is 18, oximetry is 93, and blood pressure 133/57. LUNGS: Clear. HEART: Regular rhythm. ABDOMEN: Soft, protuberant. DIAGNOSTIC STUDIES: She had an abdomen and pelvis CT today, which did not show any free air or surgical pathology. IMPRESSION: 1. Status post ventricular tachycardia, secondary to amiodarone. 2. Chronic obstructive pulmonary disease, clinically stable. 3. Chronic kidney disease with cortical thinning seen on her CT of her abdomen. 4. Coronary artery disease, which did not cause her ventricular tachycardia. 5. Deconditioning. 6. Sternal and rib fractures, secondary to CPR. 7. ? resolving ileus. There is some question of colitis on her CT. Job ID: [id number]
[2019-07-20] MEDS: Insulin Glargine 10 UNITS in Pre-Filled Syringe SC SCH (21:58)
[2019-07-20] MEDS: Methylnaltrexone 12 MG/0.6 ML VIAL SC SCH (21:58)
[2019-07-20] MEDS ORDERED: ALPRAZolam 0.25 MG TAB PO SCH (22:30)
--- NOTE | 2019-07-20 23:51 | PRG ---
DATE OF SERVICE: 07/20/2019 SUBJECTIVE: Ms. Pearson states she feels much better. She is tolerating full liquids well. She states she had one large liquidy stool today and has been passing gas well. OBJECTIVE: LUNGS: Clear to auscultation bilaterally. HEART: Regular rate and rhythm without murmur. ABDOMEN: Soft, still distended, and tympanic. Her bowel sounds are active. EXTREMITIES: No lower extremity edema. IMPRESSION: 1. Sheldon syndrome. Colonic pseudo-obstruction. Overall, she has improved. She has less distention and she is tolerating oral diet and she is passing gas and passing stool. Her colon is still distended with air noted on the CT scan that was done this morning. She has some more liquid consistency stool in the colon, which is to be expected. She is currently on magnesium, metoclopramide, Relistor, and tramadol. RECOMMENDATIONS: 1. The primary treatment will be to continue to encourage and improve ambulation. 2. Would continue the current treatment with the metoclopramide, magnesium, and Relistor for now. If the tramadol is discontinued, then the Relistor can also be discontinued. 3. She has either been refusing or nursing has not been performing the digital stimulation and suppository. I would still continue this for now given the more significant abdominal distention. When she is ready for discharge, the metoclopramide can be discontinued. Again, primary treatment will be ambulation. She can likely advance to a solid heart healthy diet tomorrow if she is feeling well. Job ID: [id number]
[2019-07-21 04:42] LABS: Anion Gap 13 mmol/L (10-20); BUN (Urea Nitrogen) 16 mg/dL (9.8-20.1); Calc. Creatinine Clearance 45 mL/min (70-130); Carbon Dioxide 31 mmol/L (23-31); Chloride 97 mmol/L (98-107); Estimated GFR-MDRD 49; Glucose 115 mg/dL (83-110); Magnesium 1.7 mg/dL (1.6-2.6); Potassium 3.9 mmol/L (3.5-5.1); Sodium 137 mmol/L (136-145)
[2019-07-21] MEDS: Levothyroxine Sodium 75 MCG TAB PO SCH (05:55)
[2019-07-21] MEDS ORDERED: Potassium Chloride 20 MEQ TAB PO SCH (08:00)
[2019-07-21] MEDS: Cyanocobalamin (Vitamin B-12) 1,000 MCG TAB PO SCH (09:06)
[2019-07-21] MEDS: Allopurinol 100 MG TAB PO SCH (09:06)
[2019-07-21] MEDS: Ubidecarenone 50 MG CAP PO SCH (09:06)
[2019-07-21] MEDS: Aspirin 81 mg Enteric Coated Tablet PO SCH (09:06)
[2019-07-21] MEDS: Bisacodyl 10 MG SUPP PR SCH (09:06)
[2019-07-21] MEDS: Doxycycline 100 MG CAP PO SCH (09:06)
[2019-07-21] MEDS: Furosemide 20 MG TAB PO SCH ×2 (09:06→15:40)
[2019-07-21] MEDS: Magnesium Oxide 400 MG TAB PO SCH ×2 (09:06→15:28)
[2019-07-21] MEDS: Sodium Chloride 0.65% Nasal 44 ML BOT EA NARE SCH ×2 (09:07→15:40)
--- NOTE | 2019-07-21 13:18 | PRG ---
DATE OF SERVICE: 07/21/2019 SUBJECTIVE: Ms. Pearson is feeling pretty well today. She feels her abdomen is less distended. She is not having any nausea. She is tolerating her liquid diet. She says she had a large liquid bowel movement yesterday and has been passing a lot of gas today. OBJECTIVE: VITAL SIGNS: Temperature 98.0, pulse 70, blood pressure 111/55, 100% oxygen saturation on 2.5 L nasal cannula. GENERAL: No acute distress. HEART: Regular rate and rhythm. LUNGS: Clear to auscultation bilaterally. ABDOMEN: Mild distention, tympanitic to percussion. Bowel sounds are active throughout the abdomen. The abdomen is soft and nontender to palpation. EXTREMITIES: No peripheral edema. LABORATORY STUDIES: Sodium 137, potassium 3.9, BUN 16, creatinine 1.06, glucose 192. ASSESSMENT AND PLAN: Amalia syndrome. Clinically, this continues to improve. She is passing a lot of gas and has less distention. She is tolerating her oral diet, and we will go ahead and advance this to a solid heart healthy diet today. No other new recommendations. See Dr. Steele's detailed note from yesterday. I would recommend continuing with the Dulcolax suppository twice daily as well as the digital stimulation. Continue with frequent ambulation. Continuing for now with metoclopramide, magnesium, and Relistor. Once tramadol is discontinued, Relistor could be discontinued as well. Also, metoclopramide can be discontinued upon hospital discharge. Gastroenterology will sign off, but please call back if needed. Job ID: [id number]
[2019-07-21] MEDS: Potassium Chloride 20 MEQ TAB PO SCH (15:40)
--- NOTE | 2019-07-21 15:46 | PRG ---
DATE OF SERVICE: 07/21/2019 SUBJECTIVE: Valorie Pearson has no complaints. OBJECTIVE: VITAL SIGNS: She is afebrile, heart rate 70, respiratory rates in the teens to low 20s, oximetry is 100% on 2 L, blood pressure 142/70. LUNGS: Clear. HEART: Regular rhythm. ABDOMEN: Soft. IMPRESSION: 1. Status post ventricular tachycardia, brought on by amiodarone. 2. Deconditioning. 3. Ileus that appears to be resolving. Overall, she appears to be better. 4. She had fairly impressive radiograph initially, but her radiographs improving and clinically she is improving. She is also being followed by GI. Job ID: [id number]
[2019-07-21 16:56] VITALS: BP 122/57; TEMP 97.9
[2019-07-21] MEDS ORDERED: Magnesium Oxide 400 MG TAB PO SCH (21:00)
[2019-07-22] MEDS ORDERED: Amiodarone 200 MG TAB PO SCH (09:00)
[2019-07-22] MEDS ORDERED: Lidocaine 5% Patch TD SCH (09:00)
[2019-07-22] MEDS ORDERED: Lidocaine Patch Removal 1 EACH TOP SCH (21:00)
[2019-08-05] MEDS ORDERED: Amiodarone 200 MG TAB PO SCH (09:00)
== END 2019-07-21 18:55 | DRG 260 ==
LOC: ERS 23:56 → CCU 07-08 01:17 → 2NO 07-13 23:32
PROVIDERS: ADMIT Internal Medicine; ATTEND Internal Medicine
PROC: 5A12012 Performance of Cardiac Output, Single, Manual (ICD-10-PCS; 2019-07-08)
PROC: 4A023N7 Measurement of Cardiac Sampling and Pressure, Left Heart, Percutaneous Approach (ICD-10-PCS; principal; 2019-07-09)
PROC: B2151ZZ Fluoroscopy of Left Heart using Low Osmolar Contrast (ICD-10-PCS; 2019-07-09)
PROC: B2131ZZ Fluoroscopy of Multiple Coronary Artery Bypass Grafts using Low Osmolar Contrast (ICD-10-PCS; 2019-07-09)
PROC: B2111ZZ Fluoroscopy of Multiple Coronary Arteries using Low Osmolar Contrast (ICD-10-PCS; 2019-07-09)
PROC: 02PA4MZ Removal of Cardiac Lead from Heart, Percutaneous Endoscopic Approach (ICD-10-PCS; 2019-07-16)
PROC: 02H63JZ Insertion of Pacemaker Lead into Right Atrium, Percutaneous Approach (ICD-10-PCS; 2019-07-16)
DX: I47.2 Ventricular tachycardia (principal); J96.21 Acute and chronic respiratory failure with hypoxia; S22.20XA Unspecified fracture of sternum, initial encounter for closed fracture; S22.39XA Fracture of one rib, unspecified side, initial encounter for closed fracture; I50.33 Acute on chronic diastolic (congestive) heart failure; I13.0 Hypertensive heart and chronic kidney disease with heart failure and stage 1 through stage 4 chronic kidney disease, or unspecified chronic kidney disease; I42.9 Cardiomyopathy, unspecified; I25.810 Atherosclerosis of coronary artery bypass graft(s) without angina pectoris; K56.7 Ileus, unspecified; D50.9 Iron deficiency anemia, unspecified; J44.9 Chronic obstructive pulmonary disease, unspecified; I49.3 Ventricular premature depolarization; N18.9 Chronic kidney disease, unspecified; E03.9 Hypothyroidism, unspecified; I07.1 Rheumatic tricuspid insufficiency; E78.00 Pure hypercholesterolemia, unspecified; E66.9 Obesity, unspecified; I27.23 Pulmonary hypertension due to lung diseases and hypoxia; I48.92 Unspecified atrial flutter; I45.81 Long QT syndrome; I48.0 Paroxysmal atrial fibrillation; I49.5 Sick sinus syndrome; D63.1 Anemia in chronic kidney disease; Z79.01 Long term (current) use of anticoagulants; I25.2 Old myocardial infarction; Z99.81 Dependence on supplemental oxygen; Z86.711 Personal history of pulmonary embolism; Z87.891 Personal history of nicotine dependence; Z88.0 Allergy status to penicillin; Z88.1 Allergy status to other antibiotic agents; Z88.8 Allergy status to other drugs, medicaments and biological substances; Z79.82 Long term (current) use of aspirin; Z79.890 Hormone replacement therapy; Z79.899 Other long term (current) drug therapy; Z95.1 Presence of aortocoronary bypass graft; Z95.2 Presence of prosthetic heart valve; Z90.49 Acquired absence of other specified parts of digestive tract; Z79.4 Long term (current) use of insulin; Z68.25 Body mass index [BMI] 25.0-25.9, adult; Z95.0 Presence of cardiac pacemaker; Z51.5 Encounter for palliative care; X58.XXXA Exposure to other specified factors, initial encounter; K59.8 Other specified functional intestinal disorders; E11.22 Type 2 diabetes mellitus with diabetic chronic kidney disease
CPT/HCPCS: 33216; 36005; 36415; 36416; 71045; 74018; 74177; 75820; 76942; 80048; 80053; 82553; 83735; 84100; 84484; 85007; 85025; 85027; 85610; 85730; 93005; 93010; 93455; 94760; 99152; 99153; C1769; C1887; J0171; J0282; J1644; J1815; J1956; J2001; J2212; J2250; J2270; J2405; J2720; J2765; J3010; J3475; J3480; J3490; J7050; J7070; Q9967; S0028

== ENCOUNTER 2019-12-31 14:17 | Inpatient (IN) | payer MEDICARE, OTHER ==
[2019-12-31 22:27] VITALS: BMI 25.4
--- NOTE | 2020-01-01 01:29 | PDOC.HHP ---
Hospitalist HPI - History of Present Illness Fever, weakness History of Present Illness: Ms. Pearson is an 84-year-old female with a past medical history of restrictive lung disease with chronic hypoxic respiratory failure on 2 L home O2, valvular heart disease, atrial arrhythmia status post PPM, diastolic heart failure, hypomagnesemia, CKD, CAD status post CABG, type 2 diabetes diet controlled, atrial fibrillation, GI bleeding, hypothyroidism, GERD who initially presented to [facility] emergency room for generalized weakness and fever. Patient was admitted to [facility] but transferred to [facility] for febrile neutropenia, pancytopenia and rule out pulmonary embolism. Patient reports that on 12/28 she presented to the [facility] ER for fevers and generalized malaise. Patient has no known Covid contacts. Does endorse mild cough. She denies chest pain, endorses shortness of breath on exertion but none at rest. Endorses fever, night sweats, chills. Denies any recent weight loss. Endorses mild bilateral lower extremity swelling. In [facility] patient's white blood cell count initially 3.0 but has since dropped to 1.3 with an ANC now of 728. Platelets also low at 80 then dropped to 53. Blood cultures no growth to date. Patient's rapid Covid testing negative, however patient's nares were not swabbed secondary to chronic nosebleeds. Hospitalist ROS - Review of Systems Constitutional: reports: fever, chills, sweats, weakness, malaise. denies: other Eyes: denies: pain, vision change, conjunctivae inflammation, eyelid inflammation, redness, other ENT: denies: ear pain, ear discharge, nose pain, nose discharge, nose congestion, mouth pain, mouth swelling, throat pain, throat swelling, other Respiratory: reports: cough, SOB with excertion. denies: dry, shortness of breath, hemoptysis, pleuritic pain, sputum, wheezing, other Cardiovascular: denies: chest pain, palpitations, orthopnea, paroxysmal noc. dyspnea, edema, light headedness, other Gastrointestinal: denies: nausea, vomiting, abdominal pain, diarrhea, constipation, melena, hematochezia, other Genitourinary: denies: dysuria, frequency, incontinence, hematuria, retention, o ther Musculoskeletal: denies: neck pain, shoulder pain, arm pain, back pain, hand pain, leg pain, foot pain, other Skin: denies: rash, lesions, kartik, bruising, other Neurological: denies: weakness, numbness, incoordination, change in speech, confusion, seizures, other - Medication Medications: Home medications include Tylenol Allopurinol Alprazolam Aspirin Docusate Lasix 40 mg Levothyroxine Magnesium oxide Pantoprazole Potassium Allergies to Macrobid, penicillin, lisinopril, Enablex, Talwin, Vicodin, Darvocet, Neurontin, prednisone, Levaquin, Crestor Hospitalist History - Past Medical History Other Medical History: Past medical history includes 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 fib with permanent pacemaker Restrictive lung disease Chronic hypoxic respiratory failure Chronic diastolic heart failure Coronary artery disease Mitral valve stenosis status post MVR Type 2 diabetes diet controlled Hypothyroidism Chronic kidney disease GERD Gout - Past Surgical History Other Surgical History: Past surgical history includes Hysterectomy Cholecystectomy Tonsillectomy Bladder suspension Nasal septal repair CABG in 2000 Heart cath in June 2019 which was normal Permanent pacemaker - Family History Other Family History: No pertinent medical history patient denies family history of cancer - Social History Smoking Status: Never smoker Alcohol: reports: None Drugs: reports: none Living Situation: Alone Activity level: independent ambulation - Exam General Appearance: NAD, awake alert Eye: PERRL, anicteric sclera ENT: normocephalic atraumatic, no oropharyngeal lesions, moist mucosa Neck: supple, symmetric, no JVD, no thyromegaly, no lymphadenopathy, no carotid bruit Heart: RRR, no murmur, no gallops, no rubs, normal peripheral pulses Respiratory: CTAB, no wheezes, no rales, no ronchi, normal chest expansion, no tachypnea, normal percussion Gastrointestinal: soft, non-tender, non-distended, normal bowel sounds, no palpable masses, no hepatomegaly, no splenomegaly, no bruit Extremities: no cyanosis, no clubbing Extremities - other findings: Trace edema to bilateral lower extremities Skin: normal turgor, no lesions, no rashes Neurological: cranial nerve grossly intact, normal sensation to touch, no weakness, no focal deficits, no new deficit Musculoskeletal: normal tone, normal strength, no muscle wasting Psychiatric: normal affect, normal behavior, A&O x 3 Hospitalist Results - Labs Result Diagrams: 01/01/20 01:03 01/01/20 01:03 Hospitalist H&P A/P - Plan Plan: 84-year-old female with past medical history of coronary artery disease, A. fib, mitral stenosis, type 2 diabetes mellitus diet-controlled, CKD who presents with fever of unknown origin and weakness found to be pancytopenic with ANC of 728. Fever with neutropenia Patient febrile to 101.2 at [facility] ER with WBC initially of 3.0 downtrending to 1.3. ANC currently 728. Chest x-ray with no acute findings, UA negative. Blood cultures with no growth to date. Rapid Covid testing negative, however poor sample secondary to patient's chronic nasal bleeding. Patient denies any history of neutropenia or cancer. No family history of cancer. Endorses fever, night sweats, chills denies weight loss. Suspect viral etiology given patient's fever and malaise as presenting symptom, however differential remains broad. Denies any new medications. Patient received ceftriaxone and azithromycin at [facility]. Plan Continue antibiotics ceftriaxone, azithromycin Neutropenic precautions Viral testing HIV, hepatitis, EBV, CMV Pancytopenia Patient pancytopenic with a WBC of 1.3, hemoglobin of 10.2, platelet count of 53. Patient endorses fever night sweats and chills. Denies weight loss. Patient has a history of chronic nosebleeds, however she has noted worsening nosebleeds in the past month. Suspect viral etiology, however differential is broad. Will obtain peripheral smear to narrow differential. Plan Peripheral smear review Trend blood counts Neutropenic precautions Viral testing as above Vitamin B12, folate, copper ESR, CRP Calcium, phosphorus, UA, LDH -Oncology consult, recs appreciated Dyspnea on exertion with elevated D-dimer Patient reports mild dyspnea on exertion. Denies respiratory distress at rest. Patient has history of restrictive lung disease with chronic hypoxic respiratory failure and is on 2 L home O2. Patient's D-dimer elevated to 2.88. Patient reports history of pulmonary embolism years ago. BUN/creatinine 21/1.07. GFR 49. Will pursue CT a PE protocol to evaluate for PE and give patient gentle IV fluids given patient's mild diastolic heart failure. Plan CTA PE Supplemental oxygen as needed Hypothyroidism Patient with history of hypothyroidism on levothyroxine. Will check TSH and continue home medication. Diastolic heart failure History of diastolic heart failure. On Lasix 40 mg twice daily. Patient does not appear to be fluid overloaded on exam. We will continue home medications and adjust as needed. Coronary artery disease History of coronary artery disease status post CABG. Recent heart cath in June 2019 which was normal. Patient denies any chest pain currently. We will contin ue home aspirin. Atrial fibrillation, torsades Patient with history of A. fib, status post permanent pacemaker. Patient had an episode of torsades in June 2019 secondary to QT prolongation with amiodarone and hypomagnesemia. Will keep patient on telemetry and monitor magnesium. Plan Telemetry Magnesium Type 2 diabetes mellitus History of type [address] patient on Accu-Cheks and insulin sliding scale. Chronic constipation Patient reports chronic constipation on home MiraLAX and docusate. Her last bow el movement yesterday, patient endorses mild abdominal pain secondary to chronic constipation. We will resume patient's home bowel regimen. DVT prophylaxishold secondary to thrombocytopenia, SCDs DNR Case discussed with attending physician, Dr. Jaimes.
[2020-01-01 01:34] LABS: ALT (SGPT) 23 U/L (8-55); AST (SGOT) 54 U/L (5-34); Albumin 3.4 g/dL (3.4-4.8); Alkaline Phosphatase 174 U/L (40-110); Anion Gap 14 mmol/L (10-20); BUN (Urea Nitrogen) 21 mg/dL (9.8-20.1); Bilirubin, Total 0.6 mg/dL (0.2-1.2); Calc. Creatinine Clearance 43 mL/min (70-130); Calcium 8.6 mg/dL (7.8-10.44); Carbon Dioxide 26 mmol/L (23-31); Chloride 100 mmol/L (98-107); Estimated GFR-MDRD 49; Globulin 2.5 g/dL (2.4-3.5); Glucose 142 mg/dL (83-110); Potassium 4.3 mmol/L (3.5-5.1); Protein, Total 5.9 g/dL (6.0-8.3); Sodium 136 mmol/L (136-145)
[2020-01-01] MEDS ORDERED: Polyethylene Glycol 3350 17 GM Packet PO PRN (01:56)
[2020-01-01] MEDS ORDERED: Acetaminophen 500 MG TAB PO PRN (01:56)
[2020-01-01] MEDS ORDERED: HumaLOG 300 UNITS/3 ML VIAL SC PRN ×2 (01:57)
[2020-01-01] MEDS ORDERED: Dextrose 50% Abboject 50 ML SYRINGE SLOW IVP PRN (01:57)
[2020-01-01] MEDS ORDERED: Dextrose 5% in Water 1,000 ML IV PRN (01:57)
[2020-01-01 01:59] LABS: Band 32 % (5-11); Eosinophils 4 % (0-10); Hemoglobin 10.6 g/dL (12.0-16.0); Lymphocytes 34 % (21-51); MDiff Complete? YES; Mean Corpuscular HGB CONC 33.5 g/dL (32.0-36.0); Mean Corpuscular Hemoglobin 32.2 pg (27.0-31.0); Mean Corpuscular Volume 96.3 fL (78.0-98.0); Mean Platelet Volume 10.7 fL (7.4-10.4); Monocytes 12 % (0-10); Neutrophil 18 % (42-75); Platelet Count 64 thou/uL (130-400); Platelet Morphology Comment Appears Decreased; RBC Distribution Width 13.6 % (11.5-14.5); Red Blood Cell (RBC) Count 3.29 mill/uL (4.20-5.40); White Blood Cell (WBC) Count 1.7 thou/uL (4.8-10.8)
[2020-01-01] MEDS: Docusate 100 MG CAP PO PRN ×2 (05:42→20:40)
[2020-01-01] MEDS: Levothyroxine Sodium 75 MCG TAB PO SCH (05:42)
[2020-01-01 06:37] LABS: Thyroid Stimulating Hormone 0.6021 uIU/mL (0.35-4.94)
[2020-01-01 06:42] LABS: Bacteria/HPF None Seen HPF (None Seen); Bilirubin Negative (Negative); Blood, Urine Negative (Negative); Clarity Clear (Clear); Glucose, Urine (Dipstick) Normal (Negative); Ketone, Urine Negative (Negative); Leukocyte Negative Leu/uL (Negative); Nitrite Negative (Negative); Protein, Urine (Dipstick) Negative (Neg-Trace); RBC/HPF None Seen HPF (0-3); Specific Gravity, Urine 1.012 (1.002-1.036); Squamous Epithelial None Seen HPF (0-3); Urobilinogen Normal mg/dL (Less than 2); WBC/HPF None Seen HPF (0-3)
[2020-01-01 06:44] LABS: Vitamin B12 1806 pg/mL (211-911)
[2020-01-01 06:56] LABS: HBSAg Index 0.26 S/CO (0-0.99); Hep A IgM AB NonReactive (NonReactive); Hep A IgM S/CO 0.18 S/CO (0-0.79); Hep B Surf Ag NonReactive S/CO (NonReactive); Hepatitis B Core IgM Abs NonReactive (NonReactive)
[2020-01-01 06:57] LABS: HBCM Index 0.05 S/CO (0-0.79); HIV (1/2) Antibody/Antigen NonReactive (NonReactive); HIV 1/2 INDEX 0.09 S/CO (<1.00); Hep C IgG Ab NonReactive (NonReactive); Hep C Index 0.08 S/CO (0-0.79)
[2020-01-01] MEDS ORDERED: Sodium Chloride 0.65% Nasal 44 ML BOT EA NARE PRN (08:50)
[2020-01-01] MEDS: Azithromycin 500 MG in Sodium Chloride 0.9% 250 ML 250 ML IVPB SCH (08:58)
[2020-01-01] MEDS: cefTRIAXone\\ROCEPHIN 1 GM in Sodium Chloride 0.9% 100 ML IVPB SCH (08:59)
[2020-01-01] MEDS: Furosemide 40 MG TAB PO SCH ×2 (08:59→15:19)
--- NOTE | 2020-01-01 11:12 | CT ---
Exam: CT angiogram of the chest HISTORY: Elevated d-dimer. Evaluate for pulmonary artery embolism. Low O2 saturation. Shortness of br eath. COMPARISON: None TECHNIQUE: CT angiogram of the chest is performed in the axial plane. Three-dimensional reformatted i mages are submitted for interpretation FINDINGS: Mediastinum: No mass, lymphadenopathy or hematoma. Stable nonenlarged prevascular, right paratracheal and precarinal/subcarinal lymph nodes. HEART: Enlarged. No significant pericardial fluid. There are significant coronary artery calcificatio ns. Prosthetic mitral valve. Aorta: Atherosclerosis. No aneurysm, dissection or periaortic fat stranding. Upper solid abdominal viscera: No abnormality enhancement. Trachea and central bronchi: Patent Pleural spaces: No effusion Lung parenchyma: No masses or consolidation. Stable scarring and atelectasis. Calcified granuloma in the lingula. Pneumothorax: None Osseous structures: No lytic or blastic lesions. Stable moderate compression fracture at T4. Stable m ild compression fracture at T1, T2 and T3. Pulmonary arteries: Adequate contrast opacification pulmonary arterial system to the level of segment al arteries. No filling defect to suggest pulmonary embolism Incidentals: There are stable soft tissue masses in the posterior left and right thorax which are inf rascapular in location and deep to the surgery is anterior and lateral is dorsi musculature. 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 IMPRESSION: 1. No evidence of pulmonary artery embolism to the level of the segmental arteries 2. Stable nonspecific is not well lymph nodes.
[2020-01-01] MEDS: Magnesium Oxide 400 MG TAB PO SCH ×2 (14:04→20:40)
[2020-01-01] MEDS: Cyanocobalamin (Vitamin B-12) 1,000 MCG TAB PO SCH (14:04)
[2020-01-01] MEDS: Allopurinol 100 MG TAB PO SCH ×2 (14:04→20:40)
[2020-01-01] MEDS: Aspirin 81 mg Enteric Coated Tablet PO SCH (14:04)
[2020-01-01] MEDS: Ubidecarenone 50 MG CAP PO SCH (14:05)
[2020-01-01] MEDS: Potassium Chloride 10 MEQ TAB PO SCH (15:19)
[2020-01-01] MEDS ORDERED: Iopamidol-370 76% 500 ML 1 ML ONE (15:34)
--- NOTE | 2020-01-01 16:19 | PDOC.HOSPP ---
- Subjective Encounter Date: 01/01/20 Encounter Time: 11:50 Subjective: pt up in bed no complains - Objective Vital Signs & Weight: Vital Signs (12 hours) Temp Pulse Resp BP Pulse Ox 01/01/20 13:00 96.1 F L 70 18 125/60 97 01/01/20 09:00 98.6 F 71 18 123/52 L 94 L 01/01/20 08:50 94 L 01/01/20 05:55 98.7 F 73 18 144/68 H 93 L Weight Weight 155 lb I&O: 12/31/19 01/01/20 01/02/20 06:59 06:59 06:59 Intake Total 480 480 Output Total 320 Balance 160 480 Result Diagrams: 01/01/20 01:03 01/01/20 01:03 Additional Labs: Accuchecks 01/01/20 01/01/20 11:02 05:56 POC Glucose 114 H 120 H Hospitalist ROS - Review of Systems Cardiovascular: denies: chest pain, palpitations, orthopnea, paroxysmal noc. dyspnea, edema, light headedness, other Gastrointestinal: denies: nausea, vomiting, abdominal pain, diarrhea, constipation, melena, hematochezia, other Genitourinary: denies: dysuria, frequency, incontinence, hematuria, retention, other - Medication Medications: Active Medications Generic Name Dose Route Start Last Admin Trade Name Freq PRN Reason Stop Dose Admin Allopurinol 100 mg 01/01/20 09:00 01/01/20 14:04 Allopurinol 100 Mg Tab PO 100 mg BID KELLY Administration Aspirin 81 mg 01/01/20 09:00 01/01/20 14:04 Aspirin 81 Mg Enteric Coated Tablet PO 81 mg DAILY KELLY Administration Coenzyme Q10 200 mg 01/01/20 09:00 01/01/20 14:05 Ubidecarenone 50 Mg Cap PO 200 mg DAILY KELLY Administration Cyanocobalamin 1,000 mcg 01/01/20 09:00 01/01/20 14:04 Cyanocobalamin (Vitamin B-12) 1,000 Mcg Tab PO 1,000 mcg DAILY KELLY Administration Docusate Sodium 100 mg 01/01/20 01:56 01/01/20 05:42 Docusate 100 Mg Cap PO 100 mg DAILY PRN Administration Constipation Furosemide 40 mg 01/01/20 09:00 01/01/20 15:19 Furosemide 40 Mg Tab PO 40 mg 0900,1400 KELLY Administration Ceftriaxone Sodium 1 gm/ 100 mls @ 200 mls/hr 01/01/20 09:00 01/01/20 08:59 Sodium Chloride IVPB 100 mls Q24HR KELLY Administration Azithromycin 500 mg/ Sodium 250 mls @ 250 mls/hr 01/01/20 10:00 01/01/20 08:58 Chloride IVPB 250 mls Q24HR KELLY Administration Levothyroxine Sodium 75 mcg 01/01/20 06:00 01/01/20 05:42 Levothyroxine Sodium 75 Mcg Tab PO 75 mcg 0600 KELLY Administration Magnesium Oxide 400 mg 01/01/20 09:00 01/01/20 14:04 Magnesium Oxide 400 Mg Tab PO 400 mg BID KELLY Administration Pantoprazole Sodium 40 mg 01/01/20 09:00 01/01/20 08:59 Pantoprazole 40 Mg Tab PO 40 mg BID KELLY Administration Polyethylene Glycol 17 gm 01/01/20 01:56 01/01/20 05:42 Polyethylene Glycol 3350 17 Gm Packet PO 17 gm DAILY PRN Administration Constipation Potassium Chloride 10 meq 01/01/20 17:00 01/01/20 15:19 Potassium Chloride 10 Meq Tab PO 10 meq BID-WM KELLY Administration - Exam Heart: negative: RRR, no murmur, no gallops, no rubs, normal peripheral pulses, irregular, diminshed peripheral pulses, murmur present, II/IV, III/IV Respiratory: negative: CTAB, no wheezes, no rales, no ronchi, normal chest expansion, no tachypnea, normal percussion, rales, rhonchi, tachypneic, wheezes Gastrointestinal: negative: soft, non-tender, non-distended, normal bowel sounds, no palpable masses, no hepatomegaly, no splenomegaly, no bruit, no guarding, no rigidity, tender to palpation, distended, diminished bowl sounds, voluntary guarding Extremities: negative: no cyanosis, no clubbing, no edema, 1+ LE edema, 2+ LE edema, clubbing Hosp A/P (1) Acute and chronic respiratory failure with hypoxia Code(s): J96.21 - ACUTE AND CHRONIC RESPIRATORY FAILURE WITH HYPOXIA Status: Chronic (2) CAD (coronary artery disease) Code(s): I25.10 - ATHSCL HEART DISEASE OF [place] CORONARY ARTERY W/O ANG PCTRS Status: Chronic Qualifiers: Coronary Disease-Associated Artery/Lesion type: bypass graft [place] vs. 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 use: with half-way use Diabetes mellitus complication status: without complication Qualified Code(s): E11.9 - Type 2 diabetes mellitus without complications; Z79.4 - assisted (current) use of insulin (4) HLD (hyperlipidemia) Code(s): E78.5 - HYPERLIPIDEMIA, UNSPECIFIED Status: Chronic Qualifiers: Hyperlipidemia type: pure hypercholesterolemia Qualified Code(s): E78.00 - Pure hypercholesterolemia, unspecified; E78.0 - Pure hypercholesterolemia (5) Hypothyroidism Code(s): E03.9 - HYPOTHYROIDISM, UNSPECIFIED Status: Chronic Qualifiers: Hypothyroidism type: unspecified Qualified Code(s): E03.9 - Hypothyroidism, unspecified (6) Pancytopenia Code(s): D61.818 - OTHER PANCYTOPENIA Status: Acute - Plan will continue current abx but i feel she could have a viral illness. pt clinically appears well. she has had nosebleeds and follows with ENT and has been refusing covid/influenza test. CTA negative for PE. will get ID to see pt. will get a peripheral smear.
[2020-01-01 17:09] LABS: Reticulocyte Count 1.6 % (0.5-1.5)
[2020-01-01] MEDS: Loratadine 10 MG TAB PO PRN (20:40)
[2020-01-01] MEDS: ALPRAZolam 0.25 MG TAB PO PRN (20:40)
[2020-01-01] MEDS: Insulin Glargine 10 UNITS in Pre-Filled Syringe 1 EACH SC SCH (20:46)
--- NOTE | 2020-01-02 04:34 | CON ---
DATE OF CONSULTATION: HISTORY OF PRESENT ILLNESS: The patient is an 84-year-old female, who developed fever on December 28. She was also feeling bad at that time and was seen in [facility]. Subsequently, she was admitted to [facility] on 12/30. On December 28, the patient's WBC count was 3000, subsequently dropped to 1300 and platelet count also dropped from 80,000 to 53,000, the reason for Hematology consultation. Looking back into [facility], the patient did not have leukopenia prior to December 28. However, she has been thrombocytopenic, going back to July 2018 when her platelet count was 133,000. Her platelet count was 51,000 on June 29, 2019 and there has been several fluctuations in her platelet count, high being up to 150 and low number 53. She has also been anemic going all the way back to April 2013 when her hemoglobin was 9.9. She has required packed red blood cell transfusion in the past. The patient has been followed by Dr. Quinn since September 2018 for iron deficiency anemia and has required IV iron infusion. She also is felt to have thrombocytopenia likely related to low B12 level of 212 on 07/31/2018. The patient admits of fatigue and denies of blood in stool or urine. She does have frequent episodes of nosebleed and is followed by Dr. Kam. CURRENT MEDICATIONS: 1. Allopurinol. 2. Xanax. 3. Ecotrin. 4. . 5. Ceftriaxone. 6. B12 of 1000 mcg p.o. daily. 7. Lasix. DRUGS WITH ADVERSE EFFECTS: Nitrofurantoin, penicillins, toluene, prednisone, Xarelto, simvastatin, and mycin. PAST HISTORY: Atrial fibrillation with permanent pacemaker; active lung disease; chronic hypoxic respiratory failure; chronic diastolic heart failure; coronary artery disease; mitral valve stenosis, status post MVR; type 2 diabetes, controlled with diet; hypothyroidism; chronic renal insufficiency; GERD; and gout. PAST SURGICAL HISTORY: Hysterectomy, cholecystectomy, tonsillectomy, bladder suspension, nasal septal repair, coronary artery bypass graft in 2000, and pacemaker implantation. PERSONAL/SOCIAL HISTORY: The patient has never smoked and does not drink and does not do drugs. She lives by herself. REVIEW OF SYSTEMS: As mentioned above. She denies of headache, diplopia, unequal extremity weakness, skin rash, joint discomfort, or blood in urine or in the stool. PHYSICAL EXAMINATION: GENERAL: The patient appears somewhat younger than her chronologic age. VITAL SIGNS: She has been afebrile in the hospital. Temperature today 97.5, pulse 75, respirations 15, O2 saturation 100%, and blood pressure 125/60. HEENT: Unremarkable. HEART: S1, S2. No pericardial rub. CHEST: Clear to auscultation. ABDOMEN: Soft without hepatosplenomegaly. EXTREMITIES: Without pedal edema. SKIN: No purpuric spots. LABORATORY DATA: CBC today shows WBC 1700, hemoglobin 10.6, and platelet count of 54,000, differential showed 18% neutrophils, 32 bands, 34 lymphocytes, 12% monocytes, 4% eosinophils. WBC today has improved over WBC of 1.3 on 12/30. The platelet count also shows improvement from 53,000 yesterday to 64,000 today. Folic acid 14.5, B12 of 1806. Comprehensive metabolic profile is essentially normal with slight elevation of alkaline phosphatase to 174 and AST 254, albumin is 3.4. ASSESSMENT AND RECOMMENDATION: Her leukopenia most likely is from acute infection and seems to be improving. The patient has chronic anemia and thrombocytopenia. This would have also become worse as a result of this episode of acute infection. For now, I will recommend serial CBCs. If she remains pancytopenic, she might require further assessment with bone marrow examination. Thanks very much for asking me to participate in this patient's care. Job ID: [id number]
[2020-01-02] MEDS: Levothyroxine Sodium 75 MCG TAB PO SCH (05:21)
[2020-01-02 05:56] LABS: Band 5 % (5-11); Eosinophils 12 % (0-10); Hemoglobin 9.9 g/dL (12.0-16.0); Lymphocytes 29 % (21-51); MDiff Complete? YES; Mean Corpuscular HGB CONC 32.7 g/dL (32.0-36.0); Mean Corpuscular Hemoglobin 30.8 pg (27.0-31.0); Mean Corpuscular Volume 94.4 fL (78.0-98.0); Mean Platelet Volume 9.9 fL (7.4-10.4); Monocytes 9 % (0-10); Neutrophil 45 % (42-75); Platelet Count 67 thou/uL (130-400); Platelet Morphology Comment Appears Decreased; RBC Distribution Width 13.6 % (11.5-14.5); RBC Morphology Normal; White Blood Cell (WBC) Count 2.5 thou/uL (4.8-10.8)
[2020-01-02 06:26] LABS: Ferritin 433.35 ng/mL (10-291)
--- NOTE | 2020-01-02 08:37 | ULT ---
COMPLETE ABDOMEN ULTRASOUND INDICATION: Evaluate spleen size and liver echotexture TECHNIQUE: Grayscale, color Doppler and spectral Doppler were obtained of the abdomen. COMPARISON: CT abdomen pelvis with contrast dated July 20, 2019 FINDINGS: Liver: There is a coarse echogenicity of the liver. There is appropriate flow within the main portal vein. Main portal vein: Patent with appropriate hepatopedal flow Pancreas: Visualized aspects appeared normal. Gallbladder: Surgically absent. Common bile duct:4.7 millimeters. Right kidney: The right kidney measured 9.0 x 5.4 x 4.9 cm . Right renal cortical thickness is 1 cm. Left kidney: The left kidney measured 9.5 x 4.5 x 4.4 cm. . Renal cortical thickness is 1.1 cm. Aorta and IVC: Appeared within normal limits. Spleen: 14.9cm in length. Spleen is enlarged from the comparison CT were measured 12.7 cm. Free fluid: None. IMPRESSION: 1. Coarse echotexture of the liver suspicious for underlying chronic liver disease. 2. Worsening mild splenomegaly. 3. Bilateral renal cortical thinning can be seen with chronic medical renal disease.
[2020-01-02] MEDS: Aspirin 81 mg Enteric Coated Tablet PO SCH (09:39)
[2020-01-02] MEDS: Ubidecarenone 50 MG CAP PO SCH (09:39)
[2020-01-02] MEDS: cefTRIAXone\\ROCEPHIN 1 GM in Sodium Chloride 0.9% 100 ML IVPB SCH (09:39)
[2020-01-02] MEDS: Furosemide 40 MG TAB PO SCH ×3 (09:40→17:00)
[2020-01-02] MEDS: Potassium Chloride 10 MEQ TAB PO SCH ×2 (09:40→15:38)
[2020-01-02] MEDS: Cyanocobalamin (Vitamin B-12) 1,000 MCG TAB PO SCH (09:40)
[2020-01-02] MEDS: Allopurinol 100 MG TAB PO SCH ×2 (09:40→20:24)
[2020-01-02] MEDS: Magnesium Oxide 400 MG TAB PO SCH ×2 (09:40→20:24)
[2020-01-02] MEDS: Azithromycin 500 MG in Sodium Chloride 0.9% 250 ML 250 ML IVPB SCH (11:14)
--- NOTE | 2020-01-02 15:56 | PDOC.HOSPP ---
- Subjective Encounter Date: 01/02/20 Encounter Time: 10:30 Subjective: pt up moving around no complains - Objective Vital Signs & Weight: Vital Signs (12 hours) Temp Pulse Resp BP Pulse Ox 01/02/20 11:52 99 F 74 22 H 140/65 98 01/02/20 09:30 97.9 F 65 24 H 125/58 L 97 01/02/20 04:59 98.3 F 72 22 H 119/55 L 98 Weight Weight 151 lb 11.2 oz I&O: 01/01/20 01/02/20 01/03/20 06:59 06:59 06:59 Intake Total 480 720 Output Total 320 950 Balance 160 -230 Result Diagrams: 01/02/20 05:02 01/01/20 01:03 Additional Labs: Accuchecks 01/02/20 01/02/20 01/02/20 15:03 10:54 05:43 POC Glucose 130 H 170 H 111 H 01/01/20 01/01/20 20:48 17:14 POC Glucose 204 H 124 H Hospitalist ROS - Review of Systems Cardiovascular: denies: chest pain, palpitations, orthopnea, paroxysmal noc. dyspnea, edema, light headedness, other Gastrointestinal: denies: nausea, vomiting, abdominal pain, diarrhea, constipation, melena, hematochezia, other Genitourinary: denies: dysuria, frequency, incontinence, hematuria, retention, other - Medication Medications: Active Medications Generic Name Dose Route Start Last Admin Trade Name Freq PRN Reason Stop Dose Admin Allopurinol 100 mg 01/01/20 09:00 01/02/20 09:40 Allopurinol 100 Mg Tab PO 100 mg BID KELLY Administration Alprazolam 0.25 mg 01/01/20 08:50 01/01/20 20:40 Alprazolam 0.25 Mg Tab PO 0.25 mg BIDPRN PRN Administration Anxiety Aspirin 81 mg 01/01/20 09:00 01/02/20 09:39 Aspirin 81 Mg Enteric Coated Tablet PO 81 mg DAILY KELLY Administration Coenzyme Q10 200 mg 01/01/20 09:00 01/02/20 09:39 Ubidecarenone 50 Mg Cap PO 200 mg DAILY KELLY Administration Cyanocobalamin 1,000 mcg 01/01/20 09:00 01/02/20 09:40 Cyanocobalamin (Vitamin B-12) 1,000 Mcg Tab PO 1,000 mcg DAILY KELLY Administration Docusate Sodium 100 mg 01/01/20 01:56 01/01/20 20:40 Docusate 100 Mg Cap PO 100 mg DAILY PRN Administration Constipation Furosemide 40 mg 01/01/20 09:00 01/02/20 15:38 Furosemide 40 Mg Tab PO Not Given 0900,1400 KELLY Ceftriaxone Sodium 1 gm/ 100 mls @ 200 mls/hr 01/01/20 09:00 01/02/20 09:39 Sodium Chloride IVPB 100 mls Q24HR KELLY Administration Insulin Glargine 10 units/ 0.1 mls @ 0 mls/hr 01/01/20 21:00 01/01/20 20:46 Miscellaneous Medication SC 0.1 mls HS KELLY Administration Levothyroxine Sodium 75 mcg 01/01/20 06:00 01/02/20 05:21 Levothyroxine Sodium 75 Mcg Tab PO 75 mcg 0600 KELLY Administration Loratadine 10 mg 01/01/20 08:50 01/01/20 20:40 Loratadine 10 Mg Tab PO 10 mg DAILY PRN Administration Allergies Magnesium Oxide 400 mg 01/01/20 09:00 01/02/20 09:40 Magnesium Oxide 400 Mg Tab PO 400 mg BID KELLY Administration Pantoprazole Sodium 40 mg 01/01/20 09:00 01/02/20 09:40 Pantoprazole 40 Mg Tab PO 40 mg BID KELLY Administration Polyethylene Glycol 17 gm 01/01/20 01:56 01/01/20 05:42 Polyethylene Glycol 3350 17 Gm Packet PO 17 gm DAILY PRN Administration Constipation Potassium Chloride 10 meq 01/01/20 17:00 01/02/20 15:38 Potassium Chloride 10 Meq Tab PO 10 meq BID-WM KELLY Administration Sodium Chloride 10 ml 01/01/20 00:41 01/01/20 20:41 Flush - Normal Saline 10 Ml Syringe IVF 10 ml PRN PRN Administration Saline Flush - Exam Neck: negative: supple, symmetric, no JVD, no thyromegaly, no lymphadenopathy, no carotid bruit, JVD Heart: negative: RRR, no murmur, no gallops, no rubs, normal peripheral pulses, irregular, diminshed peripheral pulses, murmur present, II/IV, III/IV Respiratory: negative: CTAB, no wheezes, no rales, no ronchi, normal chest expansion, no tachypnea, normal percussion, rales, rhonchi, tachypneic, wheezes Gastrointestinal: negative: soft, non-tender, non-distended, normal bowel sounds, no palpable masses, no hepatomegaly, no splenomegaly, no bruit, no guarding, no rigidity, tender to palpation, distended, diminished bowl sounds, voluntary guarding Hosp A/P (1) Acute and chronic respiratory failure with hypoxia Code(s): J96.21 - ACUTE AND CHRONIC RESPIRATORY FAILURE WITH HYPOXIA Status: Chronic (2) CAD (coronary artery disease) Code(s): I25.10 - ATHSCL HEART DISEASE OF [place] CORONARY ARTERY W/O ANG PCTRS Status: Chronic Qualifiers: Coronary Disease-Associated Artery/Lesion type: bypass graft [place] vs. transplanted heart: [place] heart Associated angina: without angina Qualified Code(s): I25.810 - Atherosclerosis of coronary artery bypass graft(s) without angina pectoris (3) Diabetes type 2, controlled Code(s): E11.9 - TYPE 2 DIABETES MELLITUS WITHOUT COMPLICATIONS Status: Chronic Qualifiers: Diabetes mellitus fpc insulin use: with fpc use Diabetes mellitus complication status: without complication Qualified Code(s): E11.9 - Type 2 diabetes mellitus without complications; Z79.4 - intermediate (current) use of insulin (4) HLD (hyperlipidemia) Code(s): E78.5 - HYPERLIPIDEMIA, UNSPECIFIED Status: Chronic Qualifiers: Hyperlipidemia type: pure hypercholesterolemia Qualified Code(s): E78.00 - Pure hypercholesterolemia, unspecified; E78.0 - Pure hypercholesterolemia (5) Hypothyroidism Code(s): E03.9 - HYPOTHYROIDISM, UNSPECIFIED Status: Chronic Qualifiers: Hypothyroidism type: unspecified Qualified Code(s): E03.9 - Hypothyroidism, unspecified (6) Pancytopenia Code(s): D61.818 - OTHER PANCYTOPENIA Status: Acute - Plan will continue current abx but i feel she could have a viral illness. pt clinically appears well. she has had nosebleeds and follows with ENT and has been refusing covid/influenza test. CTA negative for PE. will get ID to see pt. will get a peripheral smear. 01/01 pt doing well her wbc are improving. will continue current abx. will await ID's recommendation. vitamin b12 and tsh normal.
[2020-01-02] MEDS: ALPRAZolam 0.25 MG TAB PO PRN (16:50)
--- NOTE | 2020-01-02 19:05 | CON ---
DATE OF CONSULTATION: REASON FOR CONSULTATION: Pancytopenia, weakness, and fever. HISTORY OF PRESENT ILLNESS: An 84-year-old, who has a longstanding history of type 2 diabetes coronary artery disease, mitral valve insufficiency requiring a bioprosthetic valve replacement in 2001 and then development of severe stenosis of the prostatic valve requiring a redo of the mitral valve in 2010. She has had chronic diastolic heart failure, developed some form of restrictive lung disease, not clear what the etiology if it is related to her cardiac disease or something else and has been on amiodarone. So on December 28, she developed general malaise and fever, so she was seen by Dr. Jose Flores, in [place] and was admitted. She was noticed to have neutropenia and thrombocytopenia, did not have hypotension. Lactic acid was normal. There was a concern with possible COVID infection as usual. So, she was placed on Rocephin, azithromycin and she was transferred to [facility] in [place]. A CT chest with angiogram from the showed no evidence of PE and no infiltrates noticeable. There is a calcified granuloma in the lingula, but that is about it, some compression fractures T4, T1, and T2. Abdomen ultrasound showed coarse echotexture of liver suspicious for chronic liver disease and mild splenomegaly which is worsening. She was visited by Dr. Wiggins, who felt that the pancytopenia was due to maybe infection, but felt that if she remain pancytopenic, that a bone marrow would be indicated. Currently, Ms. Pearson is sitting in bed. She appears in absolutely no distress, very pleasant. She wears oxygen chronically from more than five years now and she denies any headaches. No visual symptoms, sore throat, odynophagia, dysphagia. No cough or sputum production, mild dyspnea, just chronic. No back pain. No abdominal pain. No genitourinary symptoms or diarrhea. No sense of anosmia. PAST MEDICAL HISTORY: Coronary artery disease, mitral valve stenosis and insufficiency with two replacements, prior myocardial infarction, atrial fibrillation, type 2 diabetes, hypothyroidism, hypertension, some form of restrictive lung disease, and prior pulmonary embolism. She also has chronic rhinosinusitis managed by Dr. Kam with irrigation, but she does not use Flonase because it precipitates epistaxis. SOCIAL HISTORY: Lives in [place]. Retired. She smoked more than 50 years ago for a very brief period of time. No alcoholic beverage use. In the ER note, they state that she has smoked more than 10 years ago, I guess, it is actually longer than that. ALLERGIES: NITROFURANTOIN, PENICILLIN, PENTAZOCINE, PREDNISONE, ELIQUIS, ZOCOR, AND TALWIN. CURRENT MEDICATIONS LIST: 1. Zyloprim. 2. Xanax. 3. Aspirin. 4. Azithromycin. 5. Ceftriaxone. 6. Docusate glucagon. 7. Loratadine. PHYSICAL EXAMINATION: VITAL SIGNS: T-max 99, BP 140/65, heart rate 74, respiratory rate 22, and O2 saturation 98 on 2.5 L. SKIN: Normal. Mild hyperpigmented area of previous ulceration in the left presacral region. Peripheral IV access. Pacemaker pocket site appears normal. No lymphadenopathy. HEENT: Ocular movements are conjugate. Oral cavity unremarkable. NECK: Supple. LUNGS: With distant lung sounds, but no crackles or wheezing. HEART: S1 and S2. No S3 or S4. Diminished heart sounds. No obvious murmurs. ABDOMEN: Moderately distended, but no obvious ascites. No organomegaly. No bladder distention. EXTREMITIES: No joint inflammatory activity. No edema. Below pulses 1+ in dorsalis pedis. Plantar response are flexor. No clonus. NEUROLOGIC: Awake and oriented. Follows commands. Speech is normal. Great recollection. Cognitive function is perfectly fine. LABORATORY DATA: White cell count is 1.7 and now is up to 2.5, hemoglobin 9.9, and platelets 67,000. She was started at 32% bands, now is 5% bands. Creatinine is 1.07, ALT 23, AST 54, alkaline phosphatase is 174, and bilirubin 0.6. CRP is 3.45. Ferritin 453. TSH 0.6. Urinalysis was normal. She has SARS-CoV negative test on the 11. Hepatitis serology negative. IMAGING STUDIES: As noted above. ASSESSMENT: 1. Coronary artery disease, prior PA, diabetes type 2, likely steatohepatitis or liver disease associated with her cardiac problems with likely chronic liver disease/cirrhosis and portal hypertension and hypersplenism resulting in pancytopenia. 2. Chronic rhinosinusitis. No evidence of mucormycosis at this point in time. DISCUSSION: The concern with COVID I think it is not significant one. We will go ahead and submit an antibody test. If negative, I would go ahead and discontinue isolation. I do not think she is septic either and the pancytopenia is most likely due to her chronic liver disease and hypersplenism. She may have esophageal varices. She has had those chronic symptoms related to chronic rhinosinusitis. I think we can stop the azithromycin, maybe continue Rocephin for now and eventually transition to oral Augmentin for discharge planning for management of rhinosinusitis. I would increase her the frequency and amount of nasal irrigation. Dr. Kam has contraindicated inhaled corticosteroids at this point in time. Will continue to monitor her cultures at this point. Job ID: [id number] [facility]
[2020-01-02] MEDS: Loratadine 10 MG TAB PO PRN (20:24)
[2020-01-02] MEDS: Docusate 100 MG CAP PO PRN (20:24)
[2020-01-02] MEDS: Insulin Glargine 10 UNITS in Pre-Filled Syringe 1 EACH SC SCH (20:24)
[2020-01-03] MEDS: Levothyroxine Sodium 75 MCG TAB PO SCH (05:11)
[2020-01-03 05:42] LABS: Band 8 % (5-11); Eosinophils 12 % (0-10); Hemoglobin 9.6 g/dL (12.0-16.0); Hypochromia SLIGHT = 6-15 cells (100X) (0-5/hpf); Lymphocytes 28 % (21-51); MDiff Complete? YES; Mean Corpuscular HGB CONC 32.7 g/dL (32.0-36.0); Mean Corpuscular Volume 94.8 fL (78.0-98.0); Mean Platelet Volume 9.3 fL (7.4-10.4); Metamyelocyte 2 % (0-0); Monocytes 10 % (0-10); Neutrophil 40 % (42-75); Platelet Count 96 thou/uL (130-400); Platelet Morphology Comment Appears Decreased; RBC Distribution Width 13.6 % (11.5-14.5); White Blood Cell (WBC) Count 3.5 thou/uL (4.8-10.8)
[2020-01-03] MEDS: Ubidecarenone 50 MG CAP PO SCH (08:51)
[2020-01-03] MEDS: Allopurinol 100 MG TAB PO SCH ×2 (08:52→20:33)
[2020-01-03] MEDS: Potassium Chloride 10 MEQ TAB PO SCH ×2 (08:52→17:19)
[2020-01-03] MEDS: Magnesium Oxide 400 MG TAB PO SCH ×2 (08:52→20:34)
[2020-01-03] MEDS: cefTRIAXone\\ROCEPHIN 1 GM in Sodium Chloride 0.9% 100 ML IVPB SCH (08:52)
[2020-01-03] MEDS: Cyanocobalamin (Vitamin B-12) 1,000 MCG TAB PO SCH (08:52)
[2020-01-03] MEDS: Aspirin 81 mg Enteric Coated Tablet PO SCH (08:52)
[2020-01-03] MEDS: Furosemide 40 MG TAB PO SCH ×2 (08:52→14:15)
[2020-01-03] MEDS: Docusate 100 MG CAP PO PRN (09:21)
[2020-01-03 10:35] LABS: SARS-CoV-2 IgG Ab Non-Reactive (NonReactive); SARS-CoV-2 IgG Index 0.02 S/CO (< 1.40)
[2020-01-03] MEDS: Loratadine 10 MG TAB PO PRN (14:18)
--- NOTE | 2020-01-03 14:44 | PDOC.HOSPP ---
- Subjective Encounter Date: 01/03/20 Encounter Time: 10:30 Subjective: pt up in bed feels well - Objective Vital Signs & Weight: Vital Signs (12 hours) Temp Pulse Resp BP Pulse Ox 01/03/20 11:35 98.0 F 70 18 115/51 L 93 L 01/03/20 09:06 72 16 94 L 01/03/20 09:03 98.4 F 71 134/58 L 98 01/03/20 05:25 98.0 F 72 20 152/67 H 98 Weight Weight 151 lb 11.2 oz I&O: 01/02/20 01/03/20 01/04/20 06:59 06:59 06:59 Intake Total 720 1500 Output Total 950 800 Balance -230 700 Result Diagrams: 01/03/20 05:02 01/01/20 01:03 Additional Labs: Accuchecks 01/03/20 01/03/20 01/02/20 11:32 05:17 20:34 POC Glucose 132 H 101 H 164 H 01/02/20 15:03 POC Glucose 130 H Hospitalist ROS - Review of Systems Cardiovascular: denies: chest pain, palpitations, orthopnea, paroxysmal noc. dyspnea, edema, light headedness, other Gastrointestinal: denies: nausea, vomiting, abdominal pain, diarrhea, constipation, melena, hematochezia, other Genitourinary: denies: dysuria, frequency, incontinence, hematuria, retention, other - Medication Medications: Active Medications Generic Name Dose Route Start Last Admin Trade Name Freq PRN Reason Stop Dose Admin Allopurinol 100 mg 01/01/20 09:00 01/03/20 08:52 Allopurinol 100 Mg Tab PO 100 mg BID KELLY Administration Alprazolam 0.25 mg 01/01/20 08:50 01/02/20 16:50 Alprazolam 0.25 Mg Tab PO 0.25 mg BIDPRN PRN Administration Anxiety Aspirin 81 mg 01/01/20 09:00 01/03/20 08:52 Aspirin 81 Mg Enteric Coated Tablet PO 81 mg DAILY KELLY Administration Coenzyme Q10 200 mg 01/01/20 09:00 01/03/20 08:51 Ubidecarenone 50 Mg Cap PO 200 mg DAILY KELLY Administration Cyanocobalamin 1,000 mcg 01/01/20 09:00 01/03/20 08:52 Cyanocobalamin (Vitamin B-12) 1,000 Mcg Tab PO 1,000 mcg DAILY KELLY Administration Docusate Sodium 100 mg 01/01/20 01:56 01/03/20 09:21 Docusate 100 Mg Cap PO 100 mg DAILY PRN Administration Constipation Furosemide 40 mg 01/01/20 09:00 01/03/20 14:15 Furosemide 40 Mg Tab PO 40 mg 0900,1400 KELLY Administration Ceftriaxone Sodium 1 gm/ 100 mls @ 200 mls/hr 01/01/20 09:00 01/03/20 08:52 Sodium Chloride IVPB 100 mls Q24HR KELLY Administration Insulin Glargine 10 units/ 0.1 mls @ 0 mls/hr 01/01/20 21:00 01/02/20 20:24 Miscellaneous Medication SC 0.1 mls HS KELLY Administration Levothyroxine Sodium 75 mcg 01/01/20 06:00 01/03/20 05:11 Levothyroxine Sodium 75 Mcg Tab PO 75 mcg 0600 KELLY Administration Loratadine 10 mg 01/01/20 08:50 01/03/20 14:18 Loratadine 10 Mg Tab PO 10 mg DAILY PRN Administration Allergies Magnesium Oxide 400 mg 01/01/20 09:00 01/03/20 08:52 Magnesium Oxide 400 Mg Tab PO 400 mg BID KELLY Administration Pantoprazole Sodium 40 mg 01/01/20 09:00 01/03/20 08:52 Pantoprazole 40 Mg Tab PO 40 mg BID KELLY Administration Polyethylene Glycol 17 gm 01/01/20 01:56 01/01/20 05:42 Polyethylene Glycol 3350 17 Gm Packet PO 17 gm DAILY PRN Administration Constipation Potassium Chloride 10 meq 01/01/20 17:00 01/03/20 08:52 Potassium Chloride 10 Meq Tab PO 10 meq BID-WM KELLY Administration Sodium Chloride 10 ml 01/01/20 00:41 01/01/20 20:41 Flush - Normal Saline 10 Ml Syringe IVF 10 ml PRN PRN Administration Saline Flush - Exam Neck: negative: supple, symmetric, no JVD, no thyromegaly, no lymphadenopathy, no carotid bruit, JVD Heart: negative: RRR, no murmur, no gallops, no rubs, normal peripheral pulses, irregular, diminshed peripheral pulses, murmur present, II/IV, III/IV Respiratory: negative: CTAB, no wheezes, no rales, no ronchi, normal chest expansion, no tachypnea, normal percussion, rales, rhonchi, tachypneic, wheezes Gastrointestinal: negative: soft, non-tender, non-distended, normal bowel sounds, no palpable masses, no hepatomegaly, no splenomegaly, no bruit, no guarding, no rigidity, tender to palpation, distended, diminished bowl sounds, voluntary guarding Hosp A/P (1) Acute and chronic respiratory failure with hypoxia Code(s): J96.21 - ACUTE AND CHRONIC RESPIRATORY FAILURE WITH HYPOXIA Status: Chronic (2) CAD (coronary artery disease) Code(s): I25.10 - ATHSCL HEART DISEASE OF [place] CORONARY ARTERY W/O ANG PCTRS Status: Chronic Qualifiers: Coronary Disease-Associated Artery/Lesion type: bypass graft [place] vs. transplanted heart: [place] heart Associated angina: without angina Qualified Code(s): I25.810 - Atherosclerosis of coronary artery bypass graft(s) without angina pectoris (3) Diabetes type 2, controlled Code(s): E11.9 - TYPE 2 DIABETES MELLITUS WITHOUT COMPLICATIONS Status: Chronic Qualifiers: Diabetes mellitus [place] insulin use: with jail use Diabetes mellitus complication status: without complication Qualified Code(s): E11.9 - Type 2 diabetes mellitus without complications; Z79.4 - custodial (current) use of insulin (4) HLD (hyperlipidemia) Code(s): E78.5 - HYPERLIPIDEMIA, UNSPECIFIED Status: Chronic Qualifiers: Hyperlipidemia type: pure hypercholesterolemia Qualified Code(s): E78.00 - Pure hypercholesterolemia, unspecified; E78.0 - Pure hypercholesterolemia (5) Hypothyroidism Code(s): E03.9 - HYPOTHYROIDISM, UNSPECIFIED Status: Chronic Qualifiers: Hypothyroidism type: unspecified Qualified Code(s): E03.9 - Hypothyroidism, unspecified (6) Pancytopenia Code(s): D61.818 - OTHER PANCYTOPENIA Status: Acute - Plan will continue current abx but i feel she could have a viral illness. pt cl inically appears well. she has had nosebleeds and follows with ENT and has been refusing covid/influenza test. CTA negative for PE. will get ID to see pt. will get a peripheral smear. 01/01 pt doing well her wbc are improving. will continue current abx. will await ID's recommendation. vitamin b12 and tsh normal. 01/02 pt's wbc improving, will continue to monitor, if her counts improve rusty will discharge in am. covid non reactive.
[2020-01-03] MEDS: Insulin Glargine 10 UNITS in Pre-Filled Syringe 1 EACH SC SCH (20:34)
[2020-01-03] MEDS: ALPRAZolam 0.25 MG TAB PO PRN (20:49)
[2020-01-04] MEDS: Levothyroxine Sodium 75 MCG TAB PO SCH (05:02)
[2020-01-04 05:29] LABS: Band 5 % (5-11); Eosinophils 15 % (0-10); Hemoglobin 10.1 g/dL (12.0-16.0); Lymphocytes 31 % (21-51); MDiff Complete? YES; Mean Corpuscular HGB CONC 31.9 g/dL (32.0-36.0); Mean Corpuscular Volume 94.1 fL (78.0-98.0); Mean Platelet Volume 8.8 fL (7.4-10.4); Monocytes 10 % (0-10); Neutrophil 39 % (42-75); Platelet Count 143 thou/uL (130-400); Platelet Morphology Comment Appears Adequate; RBC Distribution Width 13.4 % (11.5-14.5); Red Blood Cell (RBC) Count 3.35 mill/uL (4.20-5.40); White Blood Cell (WBC) Count 3.9 thou/uL (4.8-10.8)
[2020-01-04 07:46] VITALS: TEMP 97.6
[2020-01-04] MEDS: Ubidecarenone 50 MG CAP PO SCH (09:11)
[2020-01-04] MEDS: Aspirin 81 mg Enteric Coated Tablet PO SCH (09:11)
[2020-01-04] MEDS: Cyanocobalamin (Vitamin B-12) 1,000 MCG TAB PO SCH (09:12)
[2020-01-04] MEDS: Furosemide 40 MG TAB PO SCH (09:12)
[2020-01-04] MEDS: Magnesium Oxide 400 MG TAB PO SCH (09:12)
[2020-01-04] MEDS: Allopurinol 100 MG TAB PO SCH (09:12)
[2020-01-04] MEDS: Potassium Chloride 10 MEQ TAB PO SCH (09:12)
[2020-01-04] MEDS: cefTRIAXone\\ROCEPHIN 1 GM in Sodium Chloride 0.9% 100 ML IVPB SCH (09:15)
[2020-01-04 11:50] VITALS: BP 135/78
[2020-01-05 07:15] LABS: CMV DNA-PCR Test Negative (Negative)
--- NOTE | 2020-01-07 09:41 | DIS ---
DATE OF ADMISSION: 12/31/2019 DATE OF DISCHARGE: 01/04/2020 DISCHARGE DIAGNOSES: As of the following, 1. Pancytopenia, resolved. 2. Acute on chronic respiratory failure with hypoxia. The patient currently stable on 2.5 L of oxygen. 3. Coronary artery disease. 4. Diabetes. 5. Hyperlipidemia. 6. Hypothyroidism. HOSPITAL COURSE: The patient is an 84-year-old female, who initially presented to the hospital on 12/31 for pancytopenia. The patient did not allow us to check a COVID test or influenza test given her history of nasal bleeds, which she sees ENT for. At this time, she was monitored clinically. Her COVID antibodies were negative. She was seen by Infectious Disease. She was put on antibiotics with ceftriaxone and azithromycin and clinically, her counts improved. She was afebrile. At this time, she was also seen by Hematology and an abdominal ultrasound was done, and abdominal ultrasound indicated splenomegaly and bilateral renal cortical thinning and a coarse echotexture of the liver, suspicion for underlying liver disease. She was asked to follow up with her primary and Hematology for this. She also had a CTA, which indicated no evidence of pulmonary artery embolism and she just had some few lymph nodes. The patient at this time continued to improve. She was at baseline oxygen at 2 L. She was discharged home. She will follow up with her primary. Initially the recommendation was by Infectious Disease Augmentin, however, she is allergic to penicillin, she gets a rash. I started her on cefdinir and I discharged her for a few more days. HOME MEDICATIONS: 1. Cefdinir 300 mg b.i.d. 2. Vitamin B12 of 1000 daily. 3. Lasix 40 mg twice a day. 4. Magnesium oxide 400 mg b.i.d. 5. Allopurinol 100 mg b.i.d. 6. Aspirin 81 mg daily. 7. Prevacid 50 mg b.i.d. 8. Levothyroxine 75 mcg daily. 9. Colace 100 mg as needed. 10. Lantus 10 units at bedtime. 11. Xanax 0.25 b.i.d. p.r.n. 12. Evolocumab 140 mg subcutaneous. PHYSICAL EXAMINATION: VITAL SIGNS: On discharge temperature of 97.6, 70, 18, 95% on 2 L, 135/78. GENERAL: She is awake, alert, and oriented x3. Does not appear in distress. CV: S1, S2 present. No murmurs, rubs or gallops. Again, she will be discharged home. She will follow up with her primary and also with Hematology. We made an appointment for her on March 01 at 11:15 a.m. Job ID: [id number]
== END 2020-01-04 12:54 | disposition home or self-care (01) | DRG 808 ==
LOC: 2SW 21:46
PROVIDERS: ADMIT Student in an Organized Health Care Education/Training Program; ATTEND Internal Medicine
DX: D61.818 Other pancytopenia (principal); J96.21 Acute and chronic respiratory failure with hypoxia; I50.32 Chronic diastolic (congestive) heart failure; K76.6 Portal hypertension; D73.1 Hypersplenism; I25.10 Atherosclerotic heart disease of native coronary artery without angina pectoris; E78.00 Pure hypercholesterolemia, unspecified; E78.5 Hyperlipidemia, unspecified; E03.9 Hypothyroidism, unspecified; Z20.828 Contact with and (suspected) exposure to other viral communicable diseases; I48.91 Unspecified atrial fibrillation; K21.9 Gastro-esophageal reflux disease without esophagitis; M10.9 Gout, unspecified; K59.81 Ogilvie syndrome; E11.22 Type 2 diabetes mellitus with diabetic chronic kidney disease; K59.09 Other constipation; N18.9 Chronic kidney disease, unspecified; J32.9 Chronic sinusitis, unspecified; K74.60 Unspecified cirrhosis of liver; K75.81 Nonalcoholic steatohepatitis (NASH); Z95.1 Presence of aortocoronary bypass graft; Z99.81 Dependence on supplemental oxygen; Z95.0 Presence of cardiac pacemaker; Z79.899 Other long term (current) drug therapy; Z79.82 Long term (current) use of aspirin; Z88.6 Allergy status to analgesic agent; Z88.1 Allergy status to other antibiotic agents; Z88.0 Allergy status to penicillin; Z88.8 Allergy status to other drugs, medicaments and biological substances; Z95.2 Presence of prosthetic heart valve; Z90.49 Acquired absence of other specified parts of digestive tract; Z90.710 Acquired absence of both cervix and uterus; I25.2 Old myocardial infarction; Z86.711 Personal history of pulmonary embolism
CPT/HCPCS: 36415; 36416; 71275; 80053; 80074; 81001; 82525; 82607; 82728; 82746; 83615; 83735; 84443; 85007; 85027; 85046; 85060; 86140; 86769; 87389; 87497; 87798; 93975; J0456; J0696; J1815; J3490; J7050; Q9967

== ENCOUNTER 2020-03-26 22:38 | Observation (INO) | payer MEDICARE, OTHER ==
[2020-03-27] MEDS ORDERED: Acetaminophen 325 MG TAB PO PRN (00:13)
[2020-03-27] MEDS ORDERED: HYDROcodone/Acetaminophen 7.5/325 mg Tablet PO PRN (00:13)
[2020-03-27] MEDS ORDERED: Ondansetron PF 4 MG/2 ML Vial IVP PRN (00:13)
[2020-03-27] MEDS ORDERED: HumaLOG 300 UNITS/3 ML VIAL SC PRN (00:20)
--- NOTE | 2020-03-27 00:20 | PDOC.HHP ---
Hospitalist HPI Shortness of breath History of Present Illness: 84-year-old female with past medical history of coronary artery disease status post CABG, systolic CHF, A. fib status post previous ablation, follow-up with talent assistant Dr. Mccormick, status post AICD, chronic home O22.5 to 3 L; admitted for shortness of breath and feeling of uneasiness at home. She had called EMS on arrival it was noted that her oxygen tubing were kinked. She admitted to transient shortness of breath but states she started to feel better after taking disease. She was taken to [facility]. Initial cardiac enzyme was normal at 0.027. EKG shows no acute ST changes. Paced rhythm. Patient says she feels better now. She denies any chest pain. She also reports mild elevated glucose level. She reports mild dysuria but states improved after giving IM antibiotics as [facility]. She has been admitted for rule out acute coronary syndrome Allergies/Adverse Reactions: Allergy/AdvReac Type Severity Reaction Status Date / Time nitrofurantoin Allergy Rash Verified 12/31/19 22:50 Penicillins Allergy Rash Verified 12/31/19 22:50 pentazocine lactate Allergy Verified 12/31/19 22:50 [From Talwin] prednisone Allergy Verified 12/31/19 22:50 rivaroxaban [From Xarelto] Allergy Verified 12/31/19 22:50 simvastatin [From Zocor] Allergy Verified 12/31/19 22:50 MYCINS Allergy Uncoded 07/08/19 02:32 Home Medications: Medication Instructions Recorded Confirmed Type Lansoprazole [Prevacid] 15 mg PO BID 01/22/14 12/31/19 History Levothyroxine Sodium [Synthroid] 75 mcg PO DAILY 01/22/14 12/31/19 History Ubidecarenone [Co Q-10] 200 mg PO DAILY 01/22/14 12/31/19 History Allopurinol [Zyloprim] 100 mg PO BID #20 tablet 08/04/18 12/31/19 Rx Cyanocobalamin (Vitamin B-12) 1,000 mcg PO DAILY #30 tab 08/04/18 12/31/19 Rx [Vitamin B-12] Aspirin [Aspir-Low] 81 mg PO DAILY 04/16/19 12/31/19 History Furosemide [Lasix] 40 mg PO 0900,1400 tab 08/05/19 12/31/19 Rx Magnesium Oxide 400 mg PO BID 30 Days #60 tab 08/05/19 12/31/19 Rx Potassium Chloride [Klor-Con 10] 10 meq PO BID 12/30/19 12/31/19 History ALPRAZolam [Xanax] 0.25 mg PO BIDPRN PRN 12/31/19 12/31/19 History Acetaminophen [Tylenol Extra 1,000 mg PO Q6H PRN 12/31/19 12/31/19 History Strength] Docusate [Colace] 100 mg PO DAILY PRN 12/31/19 12/31/19 History Insulin Glargine [Lantus] 10 units SC HS 12/31/19 12/31/19 History Loratadine [Claritin] 10 mg PO DAILY PRN 12/31/19 12/31/19 History Polyethylene Glycol 3350 [Miralax] 17 gm PO DAILY PRN 12/31/19 12/31/19 History Sodium Chloride [[place] Nasal [place] 1 spray EA NARE PRN PRN 12/31/19 12/31/19 History 0.65%] Evolocumab [Repatha Sureclick] 140 mg SQ ASDIR 01/03/20 01/03/20 History Cefdinir [Omnicef] 300 mg PO BID #10 cap 01/04/20 Rx Past History: PMHx: Atrial fibrillation Systolic CHF Coronary artery disease Status post CABG Diabetes mellitus Hypertension Recurrent nosebleedfollow-up with ENT for weekly catheterization PSHx: As above FHx: Social: Lives alone, denies any alcohol, tobacco or illicit drug use Hospitalist HPI ROS Genitourinary: reports: dysuria All other systems reviewed; all pertinent +/- noted in HPI/Subj Hospitalist Exam General Appearance: NAD, awake alert General - other findings: Calm elderly female, on 2 L nasal cannula, O2 sat at 98% Eye: PERRL, anicteric sclera ENT: normocephalic atraumatic, no oropharyngeal lesions Neck: supple, symmetric, no JVD Heart: RRR, no murmur Respiratory: no wheezes, no rales, no ronchi Gastrointestinal: soft, non-tender, non-distended, no palpable masses, no guarding Extremities: no cyanosis, no clubbing Skin: normal turgor Neurological: cranial nerve grossly intact, normal sensation to touch, no focal deficits Musculoskeletal: normal tone, normal strength, no muscle wasting Psychiatric: normal affect, normal behavior, A&O x 3 Hospitalist H&P A/P (1) Atrial flutter Code(s): I48.92 - UNSPECIFIED ATRIAL FLUTTER Status: Chronic (2) CAD (coronary artery disease), [place] coronary artery Code(s): I25.10 - ATHSCL HEART DISEASE OF [place] CORONARY ARTERY W/O ANG PCTRS Status: Chronic Qualifiers: [place] vs. transplanted heart: [place] heart Associated angina: without a ngina Qualified Code(s): I25.10 - Atherosclerotic heart disease of [place] coronary artery without angina pectoris (3) Chronic diastolic heart failure Code(s): I50.32 - CHRONIC DIASTOLIC (CONGESTIVE) HEART FAILURE Status: Chronic (4) Diabetes type 2, controlled Code(s): E11.9 - TYPE 2 DIABETES MELLITUS WITHOUT COMPLICATIONS Status: Chronic Qualifiers: Diabetes mellitus care home insulin use: with care home use Diabetes mellitus complication status: without complication Qualified Code(s): E11.9 - Type 2 diabetes mellitus without complications; Z79.4 - intermediate (current) use of insulin (5) HLD (hyperlipidemia) Code(s): E78.5 - HYPERLIPIDEMIA, UNSPECIFIED Status: Chronic Qualifiers: Hyperlipidemia type: pure hypercholesterolemia Qualified Code(s): E78.00 - Pure hypercholesterolemia, unspecified; E78.0 - Pure hypercholesterolemia (6) Hypothyroidism Code(s): E03.9 - HYPOTHYROIDISM, UNSPECIFIED Status: Chronic Qualifiers: Hypothyroidism type: unspecified Qualified Code(s): E03.9 - Hypothyroidism, unspecified (7) Chest pain Code(s): R07.9 - CHEST PAIN, UNSPECIFIED Status: Resolved Qualifiers: Chest pain type: unspecified Qualified Code(s): R07.9 - Chest pain, unspecified Plan: #Atypical chest painpatient denies symptoms Transient shortness of breath may be due to delayed diuretic use -Resume home diuretic dosage -Rule out acute current syndrome with serial sets of cardiac enzymes Continue aspirin #Hypertensioncontrolled #CHFresume Lasix Continue home O2 #Presumed UTIUA from [facility] sure urinalysis Follow urine culture Start empirical Rocephin #DVT prophylaxissubcutaneous Lovenox We need to confirm if patient is on chronic anticoagulation #Advance directivediscussed with patient, she wishes to be DNR She recalls previous history of cardiac arrest 6 months ago requiring resuscitation
[2020-03-27 01:37] LABS: Troponin I 0.044 ng/mL (< 0.028)
[2020-03-27] MEDS ORDERED: ALPRAZolam 0.5 MG TAB PO PRN (02:10)
[2020-03-27] MEDS ORDERED: Levofloxacin 500 mg/D5W 100 ml Premix Bag ONE (02:24)
[2020-03-27] MEDS ORDERED: ALPRAZolam 0.25 MG TAB ONE (02:24)
[2020-03-27 05:37] LABS: #Lymphocytes 1.1 thou/uL (1.20-3.40); #Monocytes 0.6 thou/uL (0.11-0.59); #Neutrophils 3.4 thou/uL (1.40-6.50); %Basophils 0.7 % (0.0-1.0); %Eosinophils 15.8 % (0.0-10.0); %Lymphocytes 17.7 % (21.0-51.0); %Monocytes 9.3 % (0.0-10.0); %Neutrophils 56.5 % (42.0-75.0); Hemoglobin 12.5 g/dL (12.0-16.0); Mean Corpuscular HGB CONC 32.6 g/dL (32.0-36.0); Mean Platelet Volume 9.1 fL (7.4-10.4); Platelet Count 106 thou/uL (130-400); RBC Distribution Width 14.3 % (11.5-14.5); Red Blood Cell (RBC) Count 4.04 mill/uL (4.20-5.40); White Blood Cell (WBC) Count 6.1 thou/uL (4.8-10.8)
[2020-03-27 05:47] LABS: Anion Gap 14 mmol/L (10-20); BUN (Urea Nitrogen) 22 mg/dL (9.8-20.1); Calc. Creatinine Clearance 0 mL/min (70-130); Calcium 9.2 mg/dL (7.8-10.44); Carbon Dioxide 30 mmol/L (23-31); Chloride 99 mmol/L (98-107); Glucose 143 mg/dL (83-110); Potassium 3.6 mmol/L (3.5-5.1); Sodium 139 mmol/L (136-145)
[2020-03-27 05:53] LABS: Troponin I 0.044 ng/mL (< 0.028)
[2020-03-27] MEDS: Levothyroxine Sodium 75 MCG TAB PO SCH (06:27)
[2020-03-27] MEDS ORDERED: Furosemide 20 MG TAB PO SCH ×2 (09:00)
[2020-03-27] MEDS ORDERED: Aspirin Chewable 81 MG TAB ONE (09:04)
[2020-03-27] MEDS ORDERED: Furosemide 40 MG TAB ONE (09:04)
[2020-03-27] MEDS: Magnesium Oxide 400 MG TAB PO SCH ×2 (10:05→21:05)
[2020-03-27] MEDS: Ubidecarenone 50 MG CAP PO SCH (10:05)
[2020-03-27] MEDS: Aspirin 81 mg Enteric Coated Tablet PO SCH (10:07)
--- NOTE | 2020-03-27 19:14 | PDOC.HOSPP ---
- Subjective Encounter Date: 03/27/20 Encounter Time: 19:00 Subjective: f/u for dyspnea/ACS rule out. No new complaints. - Objective Vital Signs & Weight: Vital Signs (12 hours) Pulse Resp BP Pulse Ox 03/27/20 16:12 75 20 138/59 L 94 L I&O: 03/26/20 03/27/20 03/28/20 06:59 06:59 06:59 Intake Total 240 Balance 240 Result Diagrams: 03/27/20 04:56 03/27/20 04:56 Additional Labs: Accuchecks 03/27/20 03/27/20 17:01 06:49 POC Glucose 148 H 142 H Microbiology 07/27/18 21:50 Urine voided Urine Culture - Preliminary Presumptive Escherichia coli Laboratory Tests 02/21/18 02/22/18 02/24/18 03:43 04:48 04:31 Hgb 9.5 L 9.1 L Creatinine 1.22 H Uric Acid Magnesium Iron TIBC Troponin I 02/25/18 02/26/18 02/26/18 04:53 04:45 04:45 Hgb 8.7 L Creatinine 1.36 H 1.28 H Uric Acid Magnesium Iron TIBC Troponin I 02/27/18 02/28/18 07/28/18 04:54 05:06 04:37 Hgb Creatinine 1.46 H 1.29 H 1.41 H Uric Acid Magnesium 2.5 Iron TIBC Troponin I 07/28/18 07/29/18 07/31/18 04:37 04:30 05:10 Hgb 8.3 L Creatinine Uric Acid 8.8 H Magnesium Iron 33 L TIBC 445 Troponin I 03/26/20 03/27/20 03/27/20 18:50 01:00 04:56 Hgb Creatinine Uric Acid Magnesium Iron TIBC Troponin I 0.027 0.044 H 0.044 H Radiology Reviewed by me: Yes (PCXR - chronic changes, pacemaker in place, no acute process) EKG Reviewed by me: Yes (Tele - SR) Hospitalist ROS - Medication Medications: Active Medications Generic Name Dose Route Start Last Admin Trade Name Freq PRN Reason Stop Dose Admin Alprazolam 0.5 mg 03/27/20 02:10 03/27/20 02:28 Alprazolam 0.5 Mg Tab PO 0.25 mg BIDPRN PRN Administration Anxiety/Agitation Aspirin 81 mg 03/27/20 09:00 03/27/20 10:07 Aspirin 81 Mg Enteric Coated Tablet PO Not Given DAILY KELLY Coenzyme Q10 200 mg 03/27/20 09:00 03/27/20 10:05 Ubidecarenone 50 Mg Cap PO 200 mg DAILY KELLY Administration Furosemide 40 mg 03/27/20 09:00 03/27/20 10:05 Furosemide 20 Mg Tab PO 40 mg DAILY KELLY Administration Levofloxacin 500 mg/ Device 100 mls @ 100 mls/hr 03/27/20 01:00 03/27/20 02:27 IVPB 100 mls Q24HR KELLY Administration Levothyroxine Sodium 75 mcg 03/27/20 06:00 03/27/20 06:27 Levothyroxine Sodium 75 Mcg Tab PO 75 mcg 0600 KELLY Administration Magnesium Oxide 400 mg 03/27/20 09:00 03/27/20 10:05 Magnesium Oxide 400 Mg Tab PO 400 mg BID KELLY Administration Pantoprazole Sodium 40 mg 03/27/20 09:00 03/27/20 10:05 Pantoprazole 40 Mg Tab PO 40 mg BID KELLY Administration Hospitalist Exam Vitals: Vital Signs (12 hours) Pulse Resp BP Pulse Ox 03/27/20 16:12 75 20 138/59 L 94 L General Appearance: NAD, awake alert Eye: PERRL, anicteric sclera ENT: normocephalic atraumatic, no oropharyngeal lesions Neck: supple, symmetric, no JVD, no thyromegaly, no lymphadenopathy Heart: RRR, no gallops, no rubs, normal peripheral pulses Heart - other findings: S1, S2 Respiratory: CTAB, no wheezes, no rales, no ronchi, normal chest expansion Gastrointestinal: soft, non-tender, non-distended, normal bowel sounds, no palpable masses Extremities: no cyanosis, no clubbing, no edema Skin: normal turgor Neurological: cranial nerve grossly intact, no new deficit Musculoskeletal: normal tone, generalized weakness Psychiatric: normal affect, A&O x 3 Hosp A/P (1) Chest pain Code(s): R07.9 - CHEST PAIN, UNSPECIFIED Status: Acute Qualifiers: Chest pain type: unspecified Qualified Code(s): R07.9 - Chest pain, unspecified Plan: Atypical, suspect musculoskeletal, observe (2) CAD (coronary artery disease) Code(s): I25.10 - ATHSCL HEART DISEASE OF [place] CORONARY ARTERY W/O ANG PCTRS Status: Chronic Qualifiers: Coronary Disease-Associated Artery/Lesion type: bypass graft [place] vs. transplanted heart: [place] heart Associated angina: without angina Qualified Code(s): I25.810 - Atherosclerosis of coronary artery bypass graft(s) without angina pectoris Plan: Chronic, stable, continue med mgmt (3) Chronic diastolic heart failure Code(s): I50.32 - CHRONIC DIASTOLIC (CONGESTIVE) HEART FAILURE Status: Chronic Plan: Stable, no decompensation (4) Chronic respiratory failure with hypoxia Code(s): J96.11 - CHRONIC RESPIRATORY FAILURE WITH HYPOXIA Status: Chronic Plan: Stable, current O2 @ 2L/min NC (5) Diabetes type 2, controlled Code(s): E11.9 - TYPE 2 DIABETES MELLITUS WITHOUT COMPLICATIONS Status: Chronic Qualifiers: Diabetes mellitus snf insulin use: with watch dial maker use Diabetes mellitus complication status: without complication Qualified Code(s): E11.9 - Type 2 diabetes mellitus without complications; Z79.4 - midwife practitioner (current) use of insulin (6) Hypothyroidism Code(s): E03.9 - HYPOTHYROIDISM, UNSPECIFIED Status: Chronic Qualifiers: Hypothyroidism type: unspecified Qualified Code(s): E03.9 - Hypothyroidism, unspecified - Plan out of bed/ambulate, DVT proph w/SCDs stable overall continue home medications Continue home ASA Continue O2 @ 2L/min NC OOB/ambulate Likely home in am
[2020-03-27] MEDS ORDERED: Docusate 100 MG CAP PO PRN (19:16)
[2020-03-27] MEDS ORDERED: Bisacodyl 10 MG SUPP PR PRN (19:16)
[2020-03-27] MEDS ORDERED: Sodium Chloride 0.65% Nasal 44 ML BOT EA NARE PRN (19:16)
[2020-03-27] MEDS ORDERED: ALPRAZolam 0.25 MG TAB PO PRN (19:16)
[2020-03-27] MEDS ORDERED: Polyethylene Glycol 3350 17 GM Packet PO PRN (19:16)
[2020-03-27] MEDS ORDERED: Loratadine 10 MG TAB PO PRN (19:16)
[2020-03-27] MEDS ORDERED: Insulin Glargine 10 UNITS in Pre-Filled Syringe 1 EACH SC SCH (21:00)
[2020-03-27] MEDS ORDERED: Enoxaparin Sodium 30 MG/0.3 ML SYRINGE SC SCH (21:00)
[2020-03-27] MEDS: Potassium Chloride 10 MEQ TAB PO SCH (21:02)
[2020-03-27] MEDS: Allopurinol 100 MG TAB PO SCH (21:11)
[2020-03-27 21:14] VITALS: BMI 24.4
--- NOTE | 2020-03-27 21:27 | CON ---
DATE OF CONSULTATION: HISTORY: Valorie Pearson is an 84-year-old female who I have been taking care of for 20 years. She underwent CABG x3 in 2000 followed by pulmonary embolism in November 2000. She had a stent placed in the right coronary artery and the circumflex after those grafts closed in April 2001. She underwent redo-CABG x1 to the right coronary artery (circumflex system too small to re-bypass) and placement of a bioprosthetic valve. In June 2010, after many many attempts to persuade here, she finally underwent redo mitral valve replacement for severe mitral bioprosthetic valvular stenosis. She began to then have problems with atrial arrhythmias in February 2018 and underwent electrocardioversion as well as loading with amiodarone. This was followed by pacemaker placement. She was again admitted in July 2018 with progressive dyspnea, was found to be in paroxysmal atrial tachycardia. She was ventricularly paced 100% of the time, but on echo, her ejection fraction continued to remain 55% to 60%. Atrial therapies were turned on in her pacemaker. Also with her chronic lung disease, it was felt by Electrophysiology that she should be switched to Multaq. She also had a history of iron-deficiency anemia and received multiple iron transfusions in the past. Decision has been made not to anticoagulate her. She has undergone multiple GI evaluations without specific etiology. Since she was placed on Multaq in July 2008, followup around that time showed reduction of the atrial arrhythmias. She then presented in April 2019 complaining of increased shortness of breath. She did have nausea with Multaq and she was changed to one-half of a tablet t.i.d. She presented again in June 2019 with increased shortness of breath, increased fluid retention. Ultimately, there was concern that the Multaq may be contributing this, now it was discontinued and since that time when she was diuresed, she has not had any significant volume accumulation. She was loaded with amiodarone and discharged. She then returned 1 or 2 weeks later with syncopal episodes. She was having episodes of torsade de pointes, multiple episodes. CPR was started, she was defibrillated. Ultimately, it was felt this was probably secondary to amiodarone and borderline potassium. Amiodarone was discontinued. 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 Again in December 2019 with episode of pancytopenia. She was last seen in the office on December 02, 2019, and was doing well at that time. At home she is on 2.5 to 3 L chronically of oxygen 24 hours per day. She does state she has episodes where she will become extremely weak and feels if she may be passing out. Yesterday, she did have problems with increased shortness of breath, but then discovered she had two kinks in her oxygen tubing and this was replaced. She then started to breathe easier, but still felt weak and Paramedics were called and she was taken to the hospital in [place] and then transferred here. Throughout all of this she denied any chest discomfort. PAST MEDICAL HISTORY: Coronary artery disease, diastolic heart failure, hypertension, fluid accumulation with Multaq, history of pulmonary embolism, history of COPD, chronic respiratory failure on home oxygen, history of GERD, iron-deficiency anemia with multiple negative GI workups, chronic kidney disease, hypothyroidism, anxiety. OPERATIONS: Pacemaker placement and then reposition of the atrial lead in June 2019, bilateral cataract surgery, abdominal hysterectomy, cholecystectomy, tonsillectomy. She had CABG x3 followed by redo-CABG x1 with mitral valve replacement. She then had another surgery for redo mitral valve replacement, bladder suspension, nasal septal repair. MEDICATIONS: 1. Allopurinol 100 mg b.i.d. 2. Xanax 0.25 b.i.d. p.r.n. 3. Dulcolax. 4. Colace. 5. Repatha 140 q.2 weeks. 6. Furosemide 40 mg b.i.d. 7. Lantus. 8. Prevacid 15 mg b.i.d. 9. Synthroid 75 mcg daily. 10. Claritin 10 mg daily p.r.n. 11. Magnesium oxide 400 b.i.d. 12. Potassium 10 mEq b.i.d. 13. CoQ10 at 200 mg daily. ALLERGIES: PENICILLINS, NITROFURANTOIN, TALWIN, PREDNISONE, XARELTO, ZOCOR, AND MYCIN. SOCIAL HISTORY: She does not smoke. FAMILY HISTORY: Unremarkable. REVIEW OF SYSTEMS: Unremarkable except as noted above. PHYSICAL EXAMINATION: VITAL SIGNS: Blood pressure 138/59, pulse of 75. HEENT: PERRL. NECK: Supple. CHEST: Clear but distant. CARDIOVASCULAR: S1, S2 normal without any S3, S4, or murmurs. ABDOMEN: Normal bowel sounds without tenderness or organomegaly. EXTREMITIES: Revealed no clubbing, cyanosis, or edema. NEUROLOGICAL: Grossly intact. SKIN: Warm and dry. LABORATORY DATA: EKG reveals ventricular pacing. Hemoglobin 12.5, hematocrit 34.8, white count 6100, platelets 106,000. Sodium 139, potassium 3.6, chloride 99, carbon dioxide 30, BUN 24, creatinine 0.97. Troponin I is 0.044. IMPRESSION: 1. Increased shortness of breath at home, which may have been a result of kinking of her oxygen tubing. 2. Weak episodes which certainly may be related to some type of cardiac arrhythmia or hypotension. She was on metoprolol in the past for suppression of atrial arrhythmias, but is no longer. 3. History of atrial tachycardia, atrial fibrillation, atrial flutter. With amiodarone she developed torsade de pointes, and with Multaq she developed significant fluid retention. 4. History of torsade de pointes with loading with amiodarone and borderline potassium. The amiodarone was discontinued. There was also some question of potential amiodarone lung toxicity in the past. 5. Long cardiac history with status post coronary artery bypass graft x3 in 2000, coronary artery stents in the circumflex and right coronary artery after bypass grafts to those vessels closed in April 2001. She underwent redo-coronary artery bypass graft x1 and bioprosthetic mitral valve in June 2001. Then, in June 2010, she underwent redo-mitral valve replacement for bioprosthetic mitral stenosis. She has stable coronary anatomy on July 08, 2019, she underwent catheterization and the SABA to the LAD and saphenous vein grafts to the right coronary were patent. There was severe left main-circumflex disease which was the same as in 2010 when the circumflex vessel was not felt to be bypassable. 6. Pulmonary emboli after initial coronary artery bypass graft in November 2000. 7. History of iron-deficiency anemia with multiple negative GI evaluations in the past, not a candidate for anticoagulation. 8. History of dual-chamber pacemaker. In June 2019, the atrial lead was repositioned. 9. Hypertension. 10. Hypercholesterolemia. 11. Diabetes. 12. Former smoker. 13. Chronic obstructive pulmonary disease-home O2. 14. Hypothyroidism. 15. Obesity. 16. Chronic kidney disease. PLAN: The main reason she called Paramedics was for these weak episodes. She denies any chest discomfort to me in and June 2019 her coronary anatomy was stable. She does have borderline cardiac enzymes, which she has had in the past, however, do not feel that this is significant. Her pacemaker will be interrogated to see the burden of her atrial arrhythmias and also to see if this correlated when she was feeling bad that prompted her to call Paramedics. She was on metoprolol low dose in the past and this may need to be restarted. We will follow the patient with you. Job ID: [id number]
[2020-03-27] MEDS ORDERED: diphenhydrAMINE 25 MG CAP PO SCH (21:30)
[2020-03-28] MEDS: Levothyroxine Sodium 75 MCG TAB PO SCH (06:17)
[2020-03-28] MEDS ORDERED: Cyanocobalamin (Vitamin B-12) 1,000 MCG TAB PO SCH (09:00)
[2020-03-28] MEDS: Aspirin 81 mg Enteric Coated Tablet PO SCH (09:12)
[2020-03-28] MEDS: Allopurinol 100 MG TAB PO SCH (09:12)
[2020-03-28] MEDS: Furosemide 40 MG TAB PO SCH ×2 (09:13→15:20)
[2020-03-28] MEDS: Potassium Chloride 10 MEQ TAB PO SCH (09:13)
[2020-03-28] MEDS: Ubidecarenone 50 MG CAP PO SCH (09:13)
[2020-03-28] MEDS: Magnesium Oxide 400 MG TAB PO SCH (09:13)
[2020-03-28 11:05] LABS: SARS-CoV-2 PCR NAA for Saliva Not Detected (NotDetected)
[2020-03-28 12:21] VITALS: TEMP 97.7
[2020-03-28 16:48] VITALS: BP 121/57
--- NOTE | 2020-03-29 05:07 | DIS ---
DATE OF ADMISSION: 03/27/2020 DATE OF DISCHARGE: 03/28/2020 DISCHARGE DIAGNOSES: 1. Dyspnea secondarily to obstructed oxygen tubing, resolved. 2. Coronary artery disease, chronic and stable. 3. Chronic diastolic heart failure, stable. 4. Chronic hypoxic respiratory failure on 2 L/minute by nasal cannula. 5. Diabetes mellitus type 2, stable. 6. Hypothyroidism. CONSULTATIONS: Dr. Mccormick with Cardiology Service. PERTINENT LABORATORY AND X-RAY FINDINGS: Troponin I ranged between 0.027 to 0.044. COVID-19 PCR not detected 03/27/2020. Urine culture dated 03/27/2020 showed no growth at 24 hours. Portable chest x-ray dated 03/26/2020 showed no evidence for acute infiltrate. Chronic changes noted. HOSPITAL COURSE: The patient was initially admitted after presenting with increased shortness of breath and questionable chest pain after her oxygen tubing became obstructed at home. The patient underwent general evaluation due to dyspnea with screening metabolic survey showing a mild elevated troponin I. The patient underwent serial cardiac biomarkers, which were mildly elevated, however, clinically stable. Chest imaging showed no acute infiltrate and the patient was evaluated by the Cardiology Service due to a significant history of coronary artery disease as well as atrial arrhythmias. The patient underwent pacemaker interrogation at the direction of the Cardiology service showing normal functioning device. No specific adjustments to her chronic medication regimen were needed and patient overall remained clinically stable. I have examined the patient at the time of discharge and discussed followup instructions. The patient verbalized understanding and agreement ready for discharge on 03/28/2020. DISCHARGE MEDICATIONS: 1. Claritin 10 mg p.o. daily p.r.n. 2. Coenzyme Q10 200 mg p.o. daily. 3. Colace 100 mg p.o. daily p.r.n. 4. Klor-Con 10 mEq p.o. b.i.d. 5. Lantus 10 units subcutaneously at bedtime. 6. MiraLAX 17 g p.o. daily p.r.n. 7. Prevacid 15 mg p.o. b.i.d. 8. Evolocumab 140 mg subcutaneously twice monthly. 9. Synthroid 75 mcg p.o. daily. 10. Xanax 0.25 mg p.o. b.i.d. p.r.n. 11. Lasix 40 mg p.o. b.i.d. 12. Magnesium oxide 400 mg p.o. b.i.d. 13. Vitamin B12 1000 mcg p.o. daily. 14. Allopurinol 100 mg p.o. b.i.d. FOLLOWUP: The patient may follow up with Dr. Jose Flores. CONDITION ON DISCHARGE: Stable. ACTIVITY: Ad-mandy. DIET: ADA and heart healthy. CODE STATUS: Do not attempt resuscitation. DISPOSITION: To home, 03/28/2020. Job ID: [id number]
== END 2020-03-28 18:15 | disposition home or self-care (01) ==
LOC: ERS 22:38 → ERHOLD 03-27 01:10 → 2NO 03-27 16:01
PROVIDERS: ADMIT Internal Medicine; ATTEND Family Medicine
DX: J96.11 Chronic respiratory failure with hypoxia (principal); I25.10 Atherosclerotic heart disease of native coronary artery without angina pectoris; I13.0 Hypertensive heart and chronic kidney disease with heart failure and stage 1 through stage 4 chronic kidney disease, or unspecified chronic kidney disease; E11.22 Type 2 diabetes mellitus with diabetic chronic kidney disease; N18.9 Chronic kidney disease, unspecified; I50.32 Chronic diastolic (congestive) heart failure; E03.9 Hypothyroidism, unspecified; I48.91 Unspecified atrial fibrillation; I48.92 Unspecified atrial flutter; E78.00 Pure hypercholesterolemia, unspecified; J44.9 Chronic obstructive pulmonary disease, unspecified; F41.9 Anxiety disorder, unspecified; E66.9 Obesity, unspecified; Z68.24 Body mass index [BMI] 24.0-24.9, adult; Z87.891 Personal history of nicotine dependence; Z79.4 Long term (current) use of insulin; Z79.82 Long term (current) use of aspirin; Z79.899 Other long term (current) drug therapy; Z88.0 Allergy status to penicillin; Z88.1 Allergy status to other antibiotic agents; Z88.8 Allergy status to other drugs, medicaments and biological substances; Z95.1 Presence of aortocoronary bypass graft; Z95.2 Presence of prosthetic heart valve; Z99.81 Dependence on supplemental oxygen; Z95.810 Presence of automatic (implantable) cardiac defibrillator; Z20.822 Contact with and (suspected) exposure to COVID-19
CPT/HCPCS: 80048; 82962 ×2; 84484 ×2; 85025; 87086; U0003; U0005; 36415; 36416; 87635; 96374; 99285; G0378; J1815; J1956; Q0163

== ENCOUNTER 2020-04-24 20:11 | Inpatient (IN) | payer MEDICARE, OTHER ==
[2020-04-25] MEDS ORDERED: Acetaminophen 325 MG TAB ONE (01:04)
[2020-04-25 02:11] VITALS: BMI 27.8
[2020-04-25] MEDS ORDERED: Ondansetron PF 4 MG/2 ML Vial IVP PRN (03:00)
[2020-04-25] MEDS ORDERED: Acetaminophen 325 MG TAB PO PRN (03:00)
[2020-04-25] MEDS ORDERED: Ondansetron ODT 4 MG TAB SL PRN (03:00)
[2020-04-25 10:21] LABS: Hemoglobin 12.1 g/dL (12.0-16.0); Mean Corpuscular HGB CONC 33.2 g/dL (32.0-36.0); Mean Corpuscular Hemoglobin 32.4 pg (27.0-31.0); Mean Corpuscular Volume 97.7 fL (78.0-98.0); Mean Platelet Volume 8.9 fL (7.4-10.4); Platelet Count 100 thou/uL (130-400); RBC Distribution Width 13.7 % (11.5-14.5); Red Blood Cell (RBC) Count 3.74 mill/uL (4.20-5.40); White Blood Cell (WBC) Count 6.4 thou/uL (4.8-10.8)
[2020-04-25 10:41] LABS: ALT (SGPT) 13 U/L (8-55); AST (SGOT) 22 U/L (5-34); Alkaline Phosphatase 157 U/L (40-110); Anion Gap 14 mmol/L (10-20); BUN (Urea Nitrogen) 19 mg/dL (9.8-20.1); Bilirubin, Total 0.7 mg/dL (0.2-1.2); Calc. Creatinine Clearance 52 mL/min (70-130); Calcium 9.4 mg/dL (7.8-10.44); Carbon Dioxide 28 mmol/L (23-31); Chloride 101 mmol/L (98-107); Globulin 2.4 g/dL (2.4-3.5); Glucose 147 mg/dL (83-110); Protein, Total 6.4 g/dL (5.8-8.1); Sodium 139 mmol/L (136-145)
[2020-04-25] MEDS ORDERED: Dextrose 5% in Water 1,000 ML IV PRN (10:45)
[2020-04-25] MEDS ORDERED: Dextrose 50% Abboject 50 ML SYRINGE SLOW IVP PRN (10:45)
[2020-04-25] MEDS ORDERED: HumaLOG 300 UNITS/3 ML VIAL SC PRN ×2 (10:45)
[2020-04-25 11:01] LABS: Band 8 % (5-11); Eosinophils 17 % (0-10); Lymphocytes 10 % (21-51); Monocytes 6 % (0-10); Neutrophil 58 % (42-75)
[2020-04-25 11:02] LABS: MDiff Complete? YES; Ovalocytes SLIGHT = 2-5 cells (100X) (0-1/hpf); Platelet Morphology Comment Appears Decreased; Polychromasia SLIGHT = 2-3 cells (100X) (0-2/hpf)
[2020-04-25] MEDS: Lidocaine 5% Patch TD SCH (11:32)
[2020-04-25] MEDS: Sodium Chloride 0.65% Nasal 44 ML BOT EA NARE PRN (11:38)
[2020-04-25] MEDS ORDERED: Lorazepam 2 MG/ML VIAL SLOW IVP SCH (11:45)
[2020-04-25] MEDS: Cyclobenzaprine 10 MG TAB PO PRN ×2 (12:21→20:28)
[2020-04-25] MEDS ORDERED: ALPRAZolam 0.25 MG TAB PO PRN (18:16)
[2020-04-25] MEDS ORDERED: Melatonin 3 MG TAB PO PRN (18:17)
[2020-04-25] MEDS: Potassium Chloride 10 MEQ TAB PO SCH (20:27)
[2020-04-25] MEDS: Allopurinol 100 MG TAB PO SCH (20:27)
[2020-04-25] MEDS ORDERED: Transdermal Patch Removal TOP SCH (23:00)
[2020-04-26 05:09] LABS: Hemoglobin 11.7 g/dL (12.0-16.0); Mean Corpuscular HGB CONC 33.9 g/dL (32.0-36.0); Mean Corpuscular Hemoglobin 33.1 pg (27.0-31.0); Mean Corpuscular Volume 97.6 fL (78.0-98.0); Mean Platelet Volume 8.8 fL (7.4-10.4); Platelet Count 87 thou/uL (130-400); RBC Distribution Width 13.7 % (11.5-14.5); Red Blood Cell (RBC) Count 3.54 mill/uL (4.20-5.40); White Blood Cell (WBC) Count 6.4 thou/uL (4.8-10.8)
[2020-04-26 05:26] LABS: Anion Gap 14 mmol/L (10-20); BUN (Urea Nitrogen) 21 mg/dL (9.8-20.1); Calc. Creatinine Clearance 53 mL/min (70-130); Calcium 9.1 mg/dL (7.8-10.44); Carbon Dioxide 25 mmol/L (23-31); Chloride 103 mmol/L (98-107); Glucose 147 mg/dL (83-110); Potassium 4.4 mmol/L (3.5-5.1); Sodium 138 mmol/L (136-145)
[2020-04-26 05:27] LABS: Band 8 % (5-11); Eosinophils 2 % (0-10); Hypochromia SLIGHT = 6-15 cells (100X) (0-5/hpf); Lymphocytes 15 % (21-51); MDiff Complete? YES; Monocytes 4 % (0-10); Neutrophil 70 % (42-75); Platelet Morphology Comment Appears Decreased; Reactive Lymphocytes 1 % (0-10)
[2020-04-26] MEDS ORDERED: Levothyroxine Sodium 75 MCG TAB PO SCH (06:00)
[2020-04-26] MEDS: Allopurinol 100 MG TAB PO SCH (08:53)
[2020-04-26] MEDS: Potassium Chloride 10 MEQ TAB PO SCH (08:54)
[2020-04-26] MEDS: Dronedarone HCl 400 MG TAB PO SCH ×2 (08:54→09:02)
[2020-04-26] MEDS: Furosemide 40 MG TAB PO SCH ×2 (08:54→16:03)
[2020-04-26] MEDS ORDERED: Ubidecarenone 50 MG CAP PO SCH (09:00)
[2020-04-26] MEDS ORDERED: Aspirin 325 mg Enteric Coated Tablet PO SCH (09:00)
[2020-04-26] MEDS ORDERED: Losartan 25 MG TAB PO SCH (09:00)
[2020-04-26] MEDS: Sodium Chloride 0.65% Nasal 44 ML BOT EA NARE PRN (09:03)
[2020-04-26] MEDS ORDERED: Bisacodyl 10 MG SUPP PR PRN (09:20)
[2020-04-26] MEDS ORDERED: Polyethylene Glycol 3350 17 GM Packet PO PRN (09:20)
[2020-04-26] MEDS ORDERED: Docusate 100 MG CAP PO PRN (09:20)
[2020-04-26] MEDS: Cyclobenzaprine 10 MG TAB PO PRN (10:37)
[2020-04-26] MEDS: Lidocaine 5% Patch TD SCH (10:38)
[2020-04-26 16:17] VITALS: BP 109/48; TEMP 98
== END 2020-04-26 16:39 | disposition home health service (06) | DRG 552 ==
LOC: ERS 20:11 → 3SE 23:01 → OBSVTOIN 04-26 13:50
PROVIDERS: ADMIT Internal Medicine; ATTEND Hospitalist
DX: M54.5 Low back pain (principal); I50.22 Chronic systolic (congestive) heart failure; J96.11 Chronic respiratory failure with hypoxia; I42.9 Cardiomyopathy, unspecified; I48.91 Unspecified atrial fibrillation; E03.9 Hypothyroidism, unspecified; J44.9 Chronic obstructive pulmonary disease, unspecified; I11.0 Hypertensive heart disease with heart failure; E11.9 Type 2 diabetes mellitus without complications; D50.9 Iron deficiency anemia, unspecified; R53.1 Weakness; R33.9 Retention of urine, unspecified; I25.10 Atherosclerotic heart disease of native coronary artery without angina pectoris; K59.09 Other constipation; Z88.0 Allergy status to penicillin; I25.2 Old myocardial infarction; Z86.711 Personal history of pulmonary embolism; Z95.0 Presence of cardiac pacemaker; Z98.890 Other specified postprocedural states; Z90.710 Acquired absence of both cervix and uterus; Z90.49 Acquired absence of other specified parts of digestive tract; Z95.1 Presence of aortocoronary bypass graft; Z90.722 Acquired absence of ovaries, bilateral; Z95.2 Presence of prosthetic heart valve; Z88.1 Allergy status to other antibiotic agents; Z88.8 Allergy status to other drugs, medicaments and biological substances; Z88.6 Allergy status to analgesic agent; Z79.82 Long term (current) use of aspirin; Z79.899 Other long term (current) drug therapy; Z79.890 Hormone replacement therapy; Z79.4 Long term (current) use of insulin; Z79.891 Long term (current) use of opiate analgesic
CPT/HCPCS: 36415; 36416; 72148; 80048; 80053; 82607; 82746; 85007; 85027; 96374; G0378; J2060

== ENCOUNTER 2020-05-09 09:01 | Outpatient (CLI) | payer MEDICARE, OTHER | END 2020-05-09 09:02 | disposition home or self-care (01) | LOC: RAD 09:01 | PROVIDERS: ATTEND Physician Assistant Medical | DX: R13.10 Dysphagia, unspecified (principal); R14.0 Abdominal distension (gaseous); M54.5 Low back pain; R19.5 Other fecal abnormalities | CPT/HCPCS: 74220 ==

== ENCOUNTER 2020-06-06 10:37 | Inpatient (IN) | payer MEDICARE, OTHER ==
[~2020-06-06 10:37] MED LIST changes: -Iopamidol 370 76% 100 ML VIAL ONE; +Iopamidol 370 76% 50 ML VIAL FS ONE; +Iopamidol-370 76% 500 ML 1 ML ONE
[2020-06-06 12:21] LABS: Bilirubin Negative (Negative); Blood, Urine Negative (Negative); Clarity Clear (Clear); Glucose, Urine (Dipstick) Normal (Negative); Ketone, Urine Negative (Negative); Leukocyte Negative Leu/uL (Negative); Nitrite Negative (Negative); Protein, Urine (Dipstick) Negative (Neg-Trace); Specific Gravity, Urine 1.008 (1.002-1.036); Urobilinogen Normal mg/dL (Less than 2); pH, Urine 6.5 (5.0-9.0)
[2020-06-06 13:01] LABS: #Eosinphils 0.3 thou/uL (0.0-0.7); #Monocytes 0.7 thou/uL (0.11-0.59); #Neutrophils 9.4 thou/uL (1.40-6.50); %Basophils 0.1 % (0.0-1.0); %Eosinophils 2.7 % (0.0-10.0); %Lymphocytes 8.5 % (21.0-51.0); %Monocytes 6.4 % (0.0-10.0); %Neutrophils 82.3 % (42.0-75.0); Hemoglobin 14.4 g/dL (12.0-16.0); Mean Corpuscular HGB CONC 33.6 g/dL (32.0-36.0); Mean Corpuscular Hemoglobin 32.9 pg (27.0-31.0); Mean Corpuscular Volume 97.7 fL (78.0-98.0); Mean Platelet Volume 8.1 fL (7.4-10.4); Platelet Count 168 thou/uL (130-400); RBC Distribution Width 12.8 % (11.5-14.5); Red Blood Cell (RBC) Count 4.38 mill/uL (4.20-5.40); White Blood Cell (WBC) Count 11.4 thou/uL (4.8-10.8)
[2020-06-06 13:25] LABS: ALT (SGPT) 13 U/L (8-55); AST (SGOT) 22 U/L (5-34); Albumin 4.7 g/dL (3.4-4.8); Alkaline Phosphatase 175 U/L (40-110); Anion Gap 15 mmol/L (10-20); BUN (Urea Nitrogen) 25 mg/dL (9.8-20.1); Bilirubin, Total 0.8 mg/dL (0.2-1.2); Calc. Creatinine Clearance 0 mL/min (70-130); Carbon Dioxide 30 mmol/L (23-31); Chloride 97 mmol/L (98-107); Globulin 2.7 g/dL (2.4-3.5); Glucose 195 mg/dL (83-110); Lipase 23 U/L (8-78); Magnesium 2.3 mg/dL (1.6-2.6); Potassium 4.3 mmol/L (3.5-5.1); Protein, Total 7.4 g/dL (5.8-8.1); Sodium 138 mmol/L (136-145)
[2020-06-06] MEDS ORDERED: Morphine 4 MG/ML VIAL ONE (13:48)
[2020-06-06] MEDS ORDERED: Ondansetron ODT 4 MG TAB PO PRN (17:32)
[2020-06-06] MEDS ORDERED: HYDROcodone/Acetaminophen 5/325 mg Tablet PO PRN (17:32)
[2020-06-06] MEDS ORDERED: traMADol HCl 50 MG TAB PO PRN (17:37)
[2020-06-06] MEDS ORDERED: Dextrose 50% Abboject 50 ML SYRINGE SLOW IVP PRN (18:06)
[2020-06-06] MEDS ORDERED: Dextrose 5% in Water 1,000 ML IV PRN (18:06)
[2020-06-06] MEDS ORDERED: HumaLOG 300 UNITS/3 ML VIAL SC PRN (18:06)
[2020-06-06] MEDS ORDERED: Bisacodyl 10 MG SUPP PR PRN (18:15)
[2020-06-06] MEDS: Morphine 2 MG/ML VIAL SLOW IVP PRN (20:25)
[2020-06-06 20:38] VITALS: BMI 23.1
[2020-06-06 21:23] LABS: Glucose 166 mg/dL (83-110)
[2020-06-06] MEDS ORDERED: Senokot 8.6 MG TAB PO SCH (21:45)
[2020-06-07] MEDS: Morphine 2 MG/ML VIAL SLOW IVP PRN (05:40)
[2020-06-07 06:50] LABS: #Eosinphils 0.7 thou/uL (0.0-0.7); #Lymphocytes 1.2 thou/uL (1.20-3.40); #Monocytes 0.8 thou/uL (0.11-0.59); #Neutrophils 5.4 thou/uL (1.40-6.50); %Basophils 0.3 % (0.0-1.0); %Lymphocytes 14.5 % (21.0-51.0); %Neutrophils 66.2 % (42.0-75.0); Hemoglobin 13.2 g/dL (12.0-16.0); Mean Corpuscular HGB CONC 34.1 g/dL (32.0-36.0); Mean Corpuscular Hemoglobin 33.3 pg (27.0-31.0); Mean Corpuscular Volume 97.8 fL (78.0-98.0); Mean Platelet Volume 8.2 fL (7.4-10.4); Platelet Count 142 thou/uL (130-400); RBC Distribution Width 12.8 % (11.5-14.5); Red Blood Cell (RBC) Count 3.96 mill/uL (4.20-5.40); White Blood Cell (WBC) Count 8.2 thou/uL (4.8-10.8)
[2020-06-07 07:12] LABS: Anion Gap 14 mmol/L (10-20); BUN (Urea Nitrogen) 19 mg/dL (9.8-20.1); Calc. Creatinine Clearance 54 mL/min (70-130); Calcium 9.5 mg/dL (7.8-10.44); Carbon Dioxide 30 mmol/L (23-31); Chloride 100 mmol/L (98-107); Glucose 154 mg/dL (83-110); Potassium 3.6 mmol/L (3.5-5.1); Sodium 140 mmol/L (136-145)
[2020-06-07 08:25] LABS: Glucose 157 mg/dL (83-110)
[2020-06-07] MEDS: Ondansetron PF 4 MG/2 ML Vial IVP PRN ×2 (09:13→19:37)
[2020-06-07] MEDS ORDERED: Cyclobenzaprine 10 MG TAB PO PRN (10:11)
[2020-06-07] MEDS ORDERED: Loratadine 10 MG TAB PO PRN (10:11)
[2020-06-07] MEDS ORDERED: Sodium Chloride 0.65% Nasal 44 ML BOT EA NARE PRN (10:11)
[2020-06-07] MEDS ORDERED: Docusate 100 MG CAP PO PRN (10:11)
[2020-06-07] MEDS ORDERED: Bisacodyl 10 MG SUPP PR PRN (10:11)
[2020-06-07] MEDS ORDERED: ALPRAZolam 0.25 MG TAB PO PRN (10:11)
[2020-06-07] MEDS ORDERED: Ondansetron ORAL SOLN. 4 MG/5 ML UDCUP PO PRN (10:14)
[2020-06-07] MEDS ORDERED: Non-Formulary Item 1 EACH (Evolocumab [Repatha Sureclick] 140 MG/ML Pen.Injctr) FS SCH (10:15)
[2020-06-07] MEDS ORDERED: Sodium Chloride 0.9% 1,000 ML IV SCH (10:45)
[2020-06-07] MEDS: Lidocaine 5% Patch TD SCH (11:15)
[2020-06-07] MEDS: Furosemide 40 MG TAB PO SCH ×2 (11:16→15:12)
[2020-06-07] MEDS: Enoxaparin Sodium 40 MG/0.4 ML SYRINGE SC SCH (11:16)
[2020-06-07] MEDS: Senokot 8.6 MG TAB PO SCH ×2 (11:17→21:43)
[2020-06-07 13:17] LABS: Thyroid Stimulating Hormone 1.3945 uIU/mL (0.35-4.94); Vitamin D, 25 Hydroxy 16.3 ng/ml (> 30.0)
[2020-06-07] MEDS: traMADol HCl 50 MG TAB PO PRN ×2 (15:12→22:06)
[2020-06-07 15:55] LABS: SARS-CoV-2 PCR by NAA Not Detected (NotDetected)
[2020-06-07] MEDS: Allopurinol 100 MG TAB PO SCH (21:44)
[2020-06-07] MEDS: Potassium Chloride 10 MEQ TAB PO SCH (21:44)
[2020-06-07] MEDS: Lantus 1000 UNITS/10 ML VIAL SC SCH (21:44)
[2020-06-07] MEDS: Transdermal Patch Removal TOP SCH (22:09)
[2020-06-08] MEDS: Levothyroxine Sodium 75 MCG TAB PO SCH (06:06)
[2020-06-08] MEDS: Senokot 8.6 MG TAB PO SCH ×2 (09:58→20:50)
[2020-06-08] MEDS: Losartan 25 MG TAB PO SCH (09:58)
[2020-06-08] MEDS: Potassium Chloride 10 MEQ TAB PO SCH ×2 (09:58→20:49)
[2020-06-08] MEDS: Aspirin 325 mg Enteric Coated Tablet PO SCH (09:59)
[2020-06-08] MEDS: Dronedarone HCl 400 MG TAB PO SCH (09:59)
[2020-06-08] MEDS: Cholecalciferol 1,000 UNITS (25 MCG) TAB PO SCH (09:59)
[2020-06-08] MEDS: Cyanocobalamin (Vitamin B-12) 1,000 MCG TAB PO SCH (10:00)
[2020-06-08] MEDS: Furosemide 40 MG TAB PO SCH ×2 (10:00→15:04)
[2020-06-08] MEDS: Allopurinol 100 MG TAB PO SCH ×2 (10:01→20:50)
[2020-06-08] MEDS: Enoxaparin Sodium 40 MG/0.4 ML SYRINGE SC SCH (10:01)
[2020-06-08] MEDS: Lidocaine 5% Patch TD SCH (11:10)
[2020-06-08] MEDS: Morphine 2 MG/ML VIAL SLOW IVP PRN (19:25)
[2020-06-08] MEDS: Lantus 1000 UNITS/10 ML VIAL SC SCH (20:50)
[2020-06-08] MEDS: Polyethylene Glycol 3350 17 GM Packet PO PRN (20:50)
[2020-06-08] MEDS: Transdermal Patch Removal TOP SCH (22:36)
[2020-06-09] MEDS: Levothyroxine Sodium 75 MCG TAB PO SCH (05:35)
[2020-06-09] MEDS: traMADol HCl 50 MG TAB PO PRN ×3 (05:41→20:52)
[2020-06-09] MEDS: Enoxaparin Sodium 40 MG/0.4 ML SYRINGE SC SCH (09:21)
[2020-06-09] MEDS: Dronedarone HCl 400 MG TAB PO SCH (09:22)
[2020-06-09] MEDS: Losartan 25 MG TAB PO SCH (09:22)
[2020-06-09] MEDS: Polyethylene Glycol 3350 17 GM Packet PO PRN (09:22)
[2020-06-09] MEDS: Aspirin 325 mg Enteric Coated Tablet PO SCH (09:22)
[2020-06-09] MEDS: Cholecalciferol 1,000 UNITS (25 MCG) TAB PO SCH (09:23)
[2020-06-09] MEDS: Allopurinol 100 MG TAB PO SCH ×2 (09:23→20:44)
[2020-06-09] MEDS: Potassium Chloride 10 MEQ TAB PO SCH ×2 (09:23→20:47)
[2020-06-09] MEDS: Cyanocobalamin (Vitamin B-12) 1,000 MCG TAB PO SCH (09:23)
[2020-06-09] MEDS: Furosemide 40 MG TAB PO SCH ×2 (09:23→14:51)
[2020-06-09] MEDS: Senokot 8.6 MG TAB PO SCH ×2 (09:23→20:47)
[2020-06-09] MEDS: Lidocaine 5% Patch TD SCH (13:11)
[2020-06-09] MEDS: Calcium Carbonate 500 MG ChewTAB PO SCH (20:44)
[2020-06-09] MEDS: Lantus 1000 UNITS/10 ML VIAL SC SCH (20:46)
[2020-06-09] MEDS: Transdermal Patch Removal TOP SCH (20:50)
[2020-06-10] MEDS: Levothyroxine Sodium 75 MCG TAB PO SCH (05:35)
[2020-06-10] MEDS: Cholecalciferol 1,000 UNITS (25 MCG) TAB PO SCH (09:25)
[2020-06-10] MEDS: Allopurinol 100 MG TAB PO SCH ×2 (09:25→20:23)
[2020-06-10] MEDS: Potassium Chloride 10 MEQ TAB PO SCH ×2 (09:25→20:22)
[2020-06-10] MEDS: Furosemide 40 MG TAB PO SCH ×2 (09:25→14:59)
[2020-06-10] MEDS: Cyanocobalamin (Vitamin B-12) 1,000 MCG TAB PO SCH (09:25)
[2020-06-10] MEDS: Calcium Carbonate 500 MG ChewTAB PO SCH ×2 (09:25→20:23)
[2020-06-10] MEDS: Senokot 8.6 MG TAB PO SCH ×2 (09:25→20:22)
[2020-06-10] MEDS: Dronedarone HCl 400 MG TAB PO SCH (09:26)
[2020-06-10] MEDS: Losartan 25 MG TAB PO SCH (09:26)
[2020-06-10] MEDS: Aspirin 325 mg Enteric Coated Tablet PO SCH (09:26)
[2020-06-10] MEDS: Enoxaparin Sodium 40 MG/0.4 ML SYRINGE SC SCH (09:26)
[2020-06-10] MEDS: Polyethylene Glycol 3350 17 GM Packet PO PRN (09:31)
[2020-06-10] MEDS: Lidocaine 5% Patch TD SCH (12:20)
[2020-06-10] MEDS: traMADol HCl 50 MG TAB PO PRN (14:59)
[2020-06-10] MEDS: Lantus 1000 UNITS/10 ML VIAL SC SCH (20:24)
[2020-06-10] MEDS: Lidocaine 2% Viscous Solution 10 ML, Aluminum & Magnesium Hydroxide 30 ML SSW SCH ×2 (22:54→22:55)
[2020-06-10] MEDS: Transdermal Patch Removal TOP SCH (22:56)
[2020-06-11] MEDS: Levothyroxine Sodium 75 MCG TAB PO SCH (05:42)
[2020-06-11 05:47] LABS: #Eosinphils 1.1 thou/uL (0.0-0.7); #Lymphocytes 1.4 thou/uL (1.20-3.40); #Monocytes 0.9 thou/uL (0.11-0.59); #Neutrophils 4.5 thou/uL (1.40-6.50); %Basophils 0.3 % (0.0-1.0); %Eosinophils 13.5 % (0.0-10.0); %Lymphocytes 17.7 % (21.0-51.0); %Neutrophils 57.6 % (42.0-75.0); Hemoglobin 13.1 g/dL (12.0-16.0); Mean Corpuscular HGB CONC 33.3 g/dL (32.0-36.0); Mean Corpuscular Hemoglobin 32.9 pg (27.0-31.0); Mean Corpuscular Volume 98.7 fL (78.0-98.0); Mean Platelet Volume 8.5 fL (7.4-10.4); Platelet Count 121 thou/uL (130-400); RBC Distribution Width 12.6 % (11.5-14.5); Red Blood Cell (RBC) Count 3.99 mill/uL (4.20-5.40); White Blood Cell (WBC) Count 7.8 thou/uL (4.8-10.8)
[2020-06-11] MEDS: traMADol HCl 50 MG TAB PO PRN ×2 (05:51→15:13)
[2020-06-11 06:23] LABS: Anion Gap 17 mmol/L (10-20); BUN (Urea Nitrogen) 20 mg/dL (9.8-20.1); Calc. Creatinine Clearance 46 mL/min (70-130); Calcium 9.5 mg/dL (7.8-10.44); Carbon Dioxide 28 mmol/L (23-31); Chloride 96 mmol/L (98-107); Glucose 149 mg/dL (83-110); Potassium 4.5 mmol/L (3.5-5.1); Sodium 136 mmol/L (136-145)
[2020-06-11 06:29] LABS: Hemoglobin A1c 6.6 % (4.0-6.0)
[2020-06-11] MEDS: Enoxaparin Sodium 40 MG/0.4 ML SYRINGE SC SCH (08:56)
[2020-06-11] MEDS: Aspirin 325 mg Enteric Coated Tablet PO SCH (08:57)
[2020-06-11] MEDS: Cholecalciferol 1,000 UNITS (25 MCG) TAB PO SCH (08:58)
[2020-06-11] MEDS: Dronedarone HCl 400 MG TAB PO SCH (08:58)
[2020-06-11] MEDS: Senokot 8.6 MG TAB PO SCH ×2 (08:58→20:39)
[2020-06-11] MEDS: Allopurinol 100 MG TAB PO SCH ×2 (08:58→20:39)
[2020-06-11] MEDS: Cyanocobalamin (Vitamin B-12) 1,000 MCG TAB PO SCH (08:59)
[2020-06-11] MEDS: Furosemide 40 MG TAB PO SCH ×2 (08:59→15:02)
[2020-06-11] MEDS: Losartan 25 MG TAB PO SCH (08:59)
[2020-06-11] MEDS: Potassium Chloride 10 MEQ TAB PO SCH ×2 (08:59→20:39)
[2020-06-11] MEDS: Calcium Carbonate 500 MG ChewTAB PO SCH (09:02)
[2020-06-11] MEDS ORDERED: Calcium Carbonate 500 MG ChewTAB PO PRN (10:14)
[2020-06-11] MEDS: Lidocaine 5% Patch TD SCH (12:45)
[2020-06-11] MEDS: Polyethylene Glycol 3350 17 GM Packet PO PRN (15:13)
[2020-06-11] MEDS: Morphine 2 MG/ML VIAL SLOW IVP PRN (18:12)
[2020-06-11] MEDS: Lantus 1000 UNITS/10 ML VIAL SC SCH (20:40)
[2020-06-11] MEDS: Transdermal Patch Removal TOP SCH (22:11)
[2020-06-12] MEDS: Levothyroxine Sodium 75 MCG TAB PO SCH (05:54)
[2020-06-12] MEDS: Potassium Chloride 10 MEQ TAB PO SCH ×2 (08:11→22:29)
[2020-06-12] MEDS: Cholecalciferol 1,000 UNITS (25 MCG) TAB PO SCH (08:11)
[2020-06-12] MEDS: Cyanocobalamin (Vitamin B-12) 1,000 MCG TAB PO SCH (08:11)
[2020-06-12] MEDS: Furosemide 40 MG TAB PO SCH ×2 (08:11→13:22)
[2020-06-12] MEDS: Senokot 8.6 MG TAB PO SCH ×2 (08:11→22:29)
[2020-06-12] MEDS: Allopurinol 100 MG TAB PO SCH ×2 (08:11→22:29)
[2020-06-12] MEDS: Aspirin 325 mg Enteric Coated Tablet PO SCH (08:13)
[2020-06-12] MEDS: Losartan 25 MG TAB PO SCH (08:14)
[2020-06-12] MEDS: Dronedarone HCl 400 MG TAB PO SCH (08:14)
[2020-06-12] MEDS: Enoxaparin Sodium 40 MG/0.4 ML SYRINGE SC SCH (08:14)
[2020-06-12] MEDS: traMADol HCl 50 MG TAB PO PRN ×2 (08:26→22:28)
[2020-06-12] MEDS: Lidocaine 5% Patch TD SCH (12:13)
[2020-06-12] MEDS: Polyethylene Glycol 3350 17 GM Packet PO PRN (16:51)
[2020-06-12 18:09] LABS: A/G Ratio 1.3 (0.7-1.7); Albumin 3.2 g/dL (2.9-4.4); Alpha 1 0.3 g/dL (0.0-0.4); Alpha 2 0.8 g/dL (0.4-1.0); Beta 0.8 g/dL (0.7-1.3); Gamma 0.6 g/dL (0.4-1.8); Globulin, Total 2.5 g/dL (2.2-3.9); M-Spike Not Observed g/dL (Not Observed)
[2020-06-12 18:36] LABS: Albumin-Ur 65.2 % (.); Alpha 1 - Ur 3.5 % (.); Alpha 2 - Ur 10.1 % (.); Beta-Ur 15.1 % (.); M-Spike,% Not Observed % (Not Observed); Protein, Urine 30.3 mg/dL (Not Estab.)
[2020-06-12] MEDS: guaiFENesin ER 600 MG TAB PO SCH (22:28)
[2020-06-12] MEDS: Lantus 1000 UNITS/10 ML VIAL SC SCH (22:34)
[2020-06-12] MEDS: Transdermal Patch Removal TOP SCH (22:35)
[2020-06-13] MEDS: Levothyroxine Sodium 75 MCG TAB PO SCH (06:23)
[2020-06-13] MEDS: Losartan 25 MG TAB PO SCH (08:30)
[2020-06-13] MEDS: Aspirin 325 mg Enteric Coated Tablet PO SCH (08:32)
[2020-06-13] MEDS: Cholecalciferol 1,000 UNITS (25 MCG) TAB PO SCH (08:32)
[2020-06-13] MEDS: guaiFENesin ER 600 MG TAB PO SCH ×2 (08:33→22:37)
[2020-06-13] MEDS: Senokot 8.6 MG TAB PO SCH ×2 (08:34→22:39)
[2020-06-13] MEDS: Allopurinol 100 MG TAB PO SCH ×2 (08:34→22:37)
[2020-06-13] MEDS: Furosemide 40 MG TAB PO SCH ×2 (08:34→15:40)
[2020-06-13] MEDS: Dronedarone HCl 400 MG TAB PO SCH (08:35)
[2020-06-13] MEDS: Potassium Chloride 10 MEQ TAB PO SCH ×2 (08:35→22:38)
[2020-06-13] MEDS: Cyanocobalamin (Vitamin B-12) 1,000 MCG TAB PO SCH (08:36)
[2020-06-13] MEDS: Enoxaparin Sodium 40 MG/0.4 ML SYRINGE SC SCH (08:36)
[2020-06-13] MEDS: traMADol HCl 50 MG TAB PO PRN ×3 (08:37→22:36)
[2020-06-13] MEDS: Lidocaine 5% Patch TD SCH (15:40)
[2020-06-13 19:10] LABS: Troponin I 0.016 ng/mL (< 0.028)
[2020-06-13] MEDS: Transdermal Patch Removal TOP SCH (22:00)
[2020-06-13] MEDS: Lantus 1000 UNITS/10 ML VIAL SC SCH (22:38)
[2020-06-14] MEDS: Levothyroxine Sodium 75 MCG TAB PO SCH (06:58)
[2020-06-14] MEDS: Potassium Chloride 10 MEQ TAB PO SCH ×2 (08:46→20:20)
[2020-06-14] MEDS: Senokot 8.6 MG TAB PO SCH ×2 (08:47→20:19)
[2020-06-14] MEDS: Furosemide 40 MG TAB PO SCH ×2 (08:48→14:06)
[2020-06-14] MEDS: Cholecalciferol 1,000 UNITS (25 MCG) TAB PO SCH (08:48)
[2020-06-14] MEDS: Allopurinol 100 MG TAB PO SCH ×2 (08:48→20:20)
[2020-06-14] MEDS: Cyanocobalamin (Vitamin B-12) 1,000 MCG TAB PO SCH (08:48)
[2020-06-14] MEDS: Enoxaparin Sodium 40 MG/0.4 ML SYRINGE SC SCH (08:48)
[2020-06-14] MEDS: Dronedarone HCl 400 MG TAB PO SCH (08:48)
[2020-06-14] MEDS: Aspirin 325 mg Enteric Coated Tablet PO SCH (08:49)
[2020-06-14] MEDS: Losartan 25 MG TAB PO SCH (08:49)
[2020-06-14] MEDS: guaiFENesin ER 600 MG TAB PO SCH ×2 (08:49→20:20)
[2020-06-14] MEDS: Acetaminophen 500 MG TAB PO PRN (10:59)
[2020-06-14] MEDS: traMADol HCl 50 MG TAB PO PRN (14:05)
[2020-06-14] MEDS: Lidocaine 5% Patch TD SCH (14:06)
[2020-06-14] MEDS: Ondansetron PF 4 MG/2 ML Vial IVP PRN (17:48)
[2020-06-14] MEDS: Lantus 1000 UNITS/10 ML VIAL SC SCH (20:21)
[2020-06-14] MEDS: Transdermal Patch Removal TOP SCH (20:23)
[2020-06-15] MEDS: Acetaminophen 500 MG TAB PO PRN ×2 (05:19→20:51)
[2020-06-15] MEDS: Levothyroxine Sodium 75 MCG TAB PO SCH (05:19)
[2020-06-15] MEDS: Losartan 25 MG TAB PO SCH (09:16)
[2020-06-15] MEDS: Dronedarone HCl 400 MG TAB PO SCH (09:17)
[2020-06-15] MEDS: Aspirin 325 mg Enteric Coated Tablet PO SCH (09:17)
[2020-06-15] MEDS: Enoxaparin Sodium 40 MG/0.4 ML SYRINGE SC SCH (09:17)
[2020-06-15] MEDS: Allopurinol 100 MG TAB PO SCH ×2 (09:19→20:52)
[2020-06-15] MEDS: Cholecalciferol 1,000 UNITS (25 MCG) TAB PO SCH (09:19)
[2020-06-15] MEDS: Cyanocobalamin (Vitamin B-12) 1,000 MCG TAB PO SCH (09:19)
[2020-06-15] MEDS: Furosemide 40 MG TAB PO SCH ×2 (09:20→13:35)
[2020-06-15] MEDS: Potassium Chloride 10 MEQ TAB PO SCH ×2 (09:20→20:52)
[2020-06-15] MEDS: Senokot 8.6 MG TAB PO SCH ×2 (09:21→20:51)
[2020-06-15] MEDS: guaiFENesin ER 600 MG TAB PO SCH ×2 (09:21→20:52)
[2020-06-15] MEDS ORDERED: Silver Nitrate Application 1 EACH ONE ×2 (10:37→10:38)
[2020-06-15] MEDS ORDERED: AFRIN NASAL MIST 15 ML BOT ONE (10:37)
[2020-06-15] MEDS: Lidocaine 5% Patch TD SCH (12:27)
[2020-06-15] MEDS ORDERED: Simethicone Chewable 80 MG TAB PO PRN (20:49)
[2020-06-15] MEDS: Lantus 1000 UNITS/10 ML VIAL SC SCH (20:53)
[2020-06-15] MEDS: Transdermal Patch Removal TOP SCH (20:54)
[2020-06-16] MEDS: Acetaminophen 500 MG TAB PO PRN (01:29)
[2020-06-16] MEDS: Benzonatate 100 MG CAP PO PRN ×2 (01:30→08:56)
[2020-06-16] MEDS: Levothyroxine Sodium 75 MCG TAB PO SCH (06:36)
[2020-06-16 07:59] VITALS: BP 143/78; TEMP 98.1
[2020-06-16] MEDS: Enoxaparin Sodium 40 MG/0.4 ML SYRINGE SC SCH (08:57)
[2020-06-16] MEDS: Potassium Chloride 10 MEQ TAB PO SCH (08:59)
[2020-06-16] MEDS: Allopurinol 100 MG TAB PO SCH (08:59)
[2020-06-16] MEDS: Cholecalciferol 1,000 UNITS (25 MCG) TAB PO SCH (08:59)
[2020-06-16] MEDS: Furosemide 40 MG TAB PO SCH ×2 (08:59→13:37)
[2020-06-16] MEDS: Cyanocobalamin (Vitamin B-12) 1,000 MCG TAB PO SCH (08:59)
[2020-06-16] MEDS: guaiFENesin ER 600 MG TAB PO SCH (09:00)
[2020-06-16] MEDS: Dronedarone HCl 400 MG TAB PO SCH (09:00)
[2020-06-16] MEDS: Aspirin 325 mg Enteric Coated Tablet PO SCH (09:00)
[2020-06-16] MEDS: Senokot 8.6 MG TAB PO SCH (09:00)
[2020-06-16] MEDS ORDERED: Fluticasone Propionate Nasal Spray 16 gm Bottle NASAL SCH (09:00)
[2020-06-16] MEDS ORDERED: Loratadine 10 MG TAB PO SCH (09:00)
[2020-06-16] MEDS: Losartan 25 MG TAB PO SCH (09:01)
[2020-06-16] MEDS: Lidocaine 5% Patch TD SCH (11:59)
[2020-06-16] MEDS: traMADol HCl 50 MG TAB PO PRN (13:34)
[2020-06-16] MEDS ORDERED: Benzonatate 100 MG CAP PO SCH (15:00)
== END 2020-06-16 18:00 | disposition swing bed (61) | DRG 543 ==
LOC: ERS 10:37 → T4-A 16:40
PROVIDERS: ADMIT Student in an Organized Health Care Education/Training Program; ATTEND Family Medicine
DX: M80.08XA Age-related osteoporosis with current pathological fracture, vertebra(e), initial encounter for fracture (principal); J96.11 Chronic respiratory failure with hypoxia; I42.9 Cardiomyopathy, unspecified; I50.32 Chronic diastolic (congestive) heart failure; E44.0 Moderate protein-calorie malnutrition; Z66 Do not resuscitate; Z20.822 Contact with and (suspected) exposure to COVID-19; E78.00 Pure hypercholesterolemia, unspecified; I49.5 Sick sinus syndrome; I25.10 Atherosclerotic heart disease of native coronary artery without angina pectoris; E11.9 Type 2 diabetes mellitus without complications; E03.9 Hypothyroidism, unspecified; J44.9 Chronic obstructive pulmonary disease, unspecified; Z96.1 Presence of intraocular lens; K59.00 Constipation, unspecified; I48.0 Paroxysmal atrial fibrillation; R79.89 Other specified abnormal findings of blood chemistry; Z53.20 Procedure and treatment not carried out because of patient's decision for unspecified reasons; M10.9 Gout, unspecified; I11.0 Hypertensive heart disease with heart failure; R04.0 Epistaxis; Z86.711 Personal history of pulmonary embolism; Z88.0 Allergy status to penicillin; I25.2 Old myocardial infarction; Z95.1 Presence of aortocoronary bypass graft; Z90.721 Acquired absence of ovaries, unilateral; Z95.0 Presence of cardiac pacemaker; Z95.2 Presence of prosthetic heart valve; Z88.8 Allergy status to other drugs, medicaments and biological substances; Z79.899 Other long term (current) drug therapy; Z79.890 Hormone replacement therapy; Z79.4 Long term (current) use of insulin; Z90.49 Acquired absence of other specified parts of digestive tract; Z90.710 Acquired absence of both cervix and uterus; Z90.89 Acquired absence of other organs; Z87.891 Personal history of nicotine dependence; Z99.81 Dependence on supplemental oxygen; Z68.23 Body mass index [BMI] 23.0-23.9, adult
CPT/HCPCS: 36415; 36416; 71260; 74177; 80048; 80053; 81003; 82306; 82947; 83036; 83690; 83735; 83970; 84165; 84166; 84443; 84484; 85025; 87635; 94640; 96374; J1650; J1815; J2270; J2405; J7620; Q9967; U0003; U0005

== ENCOUNTER 2020-08-01 11:51 | Inpatient (IN) | payer MEDICARE, OTHER ==
[2020-08-01 12:35] LABS: Analyzer IN Cardio ER; Base Excess 5.9 mEq/L (-2.0 to +3.0); Calcium, Ionized (venous) 1.16 mmol/L (1.16-1.32); Chloride (VBG) 99 mmol/L (98-106); Potassium (VBG) 5.05 mmol/L (3.70-5.30); Sodium 137.7 mmol/L (133-146); pH (venous) 7.46 (7.32-7.43)
[2020-08-01 12:36] LABS: #Lymphocytes 1.1 thou/uL (1.20-3.40); #Monocytes 0.7 thou/uL (0.11-0.59); #Neutrophils 6.5 thou/uL (1.40-6.50); %Basophils 0.4 % (0.0-1.0); %Eosinophils 10.3 % (0.0-10.0); %Lymphocytes 11.4 % (21.0-51.0); %Monocytes 7.2 % (0.0-10.0); %Neutrophils 70.7 % (42.0-75.0); Hemoglobin 13.2 g/dL (12.0-16.0); Mean Corpuscular HGB CONC 33.8 g/dL (32.0-36.0); Mean Corpuscular Hemoglobin 33.8 pg (27.0-31.0); Mean Corpuscular Volume 99.8 fL (78.0-98.0); Mean Platelet Volume 8.6 fL (7.4-10.4); Platelet Count 131 thou/uL (130-400); RBC Distribution Width 12.4 % (11.5-14.5); White Blood Cell (WBC) Count 9.2 thou/uL (4.8-10.8)
[2020-08-01 12:38] LABS: Actual Bicarbonate (HCO3v) 31 mEq/L (22-28)
[2020-08-01 13:41] LABS: ALT (SGPT) 11 U/L (8-55); AST (SGOT) 28 U/L (5-34); Albumin 4.4 g/dL (3.4-4.8); Alkaline Phosphatase 171 U/L (40-110); Anion Gap 18 mmol/L (10-20); BUN (Urea Nitrogen) 17 mg/dL (9.8-20.1); Bilirubin, Total 0.7 mg/dL (0.2-1.2); Calc. Creatinine Clearance 0 mL/min (70-130); Calcium 9.9 mg/dL (7.8-10.44); Carbon Dioxide 29 mmol/L (23-31); Chloride 100 mmol/L (98-107); Globulin 2.8 g/dL (2.4-3.5); Glucose 174 mg/dL (83-110); Potassium 4.8 mmol/L (3.5-5.1); Protein, Total 7.2 g/dL (5.8-8.1); Sodium 142 mmol/L (136-145)
[2020-08-01] MEDS ORDERED: Furosemide 40 MG/4 ML VIAL ONE (16:06)
[2020-08-01] MEDS ORDERED: Acetaminophen 650 MG Suppository PR PRN (16:18)
[2020-08-01] MEDS ORDERED: Bisacodyl 10 MG SUPP PR PRN (16:20)
[2020-08-01] MEDS ORDERED: Docusate 100 MG CAP PO PRN (16:20)
[2020-08-01] MEDS ORDERED: ALPRAZolam 0.25 MG TAB PO PRN (16:20)
[2020-08-01] MEDS ORDERED: Dextrose 50% Abboject 50 ML SYRINGE SLOW IVP PRN (17:12)
[2020-08-01] MEDS ORDERED: Dextrose 5% in Water 1,000 ML IV PRN (17:12)
[2020-08-01] MEDS ORDERED: Insulin Regular 300 UNITS/3 ML VIAL SC PRN ×2 (17:12)
[2020-08-01 21:24] VITALS: BMI 22.1
[2020-08-02 05:05] LABS: #Eosinphils 1.1 thou/uL (0.0-0.7); #Lymphocytes 1.2 thou/uL (1.20-3.40); #Monocytes 0.8 thou/uL (0.11-0.59); %Basophils 0.5 % (0.0-1.0); %Eosinophils 13.5 % (0.0-10.0); %Lymphocytes 15.2 % (21.0-51.0); %Monocytes 9.5 % (0.0-10.0); %Neutrophils 61.2 % (42.0-75.0); Hemoglobin 12.5 g/dL (12.0-16.0); Mean Corpuscular HGB CONC 33.4 g/dL (32.0-36.0); Mean Corpuscular Hemoglobin 33.5 pg (27.0-31.0); Mean Platelet Volume 8.5 fL (7.4-10.4); Platelet Count 124 thou/uL (130-400); RBC Distribution Width 12.4 % (11.5-14.5); Red Blood Cell (RBC) Count 3.73 mill/uL (4.20-5.40); White Blood Cell (WBC) Count 8.2 thou/uL (4.8-10.8)
[2020-08-02] MEDS: Levothyroxine Sodium 75 MCG TAB PO SCH (05:24)
[2020-08-02 05:27] LABS: Anion Gap 11 mmol/L (10-20); BUN (Urea Nitrogen) 15 mg/dL (9.8-20.1); Calc. Creatinine Clearance 52 mL/min (70-130); Calcium 9.5 mg/dL (7.8-10.44); Carbon Dioxide 30 mmol/L (23-31); Chloride 103 mmol/L (98-107); Glucose 158 mg/dL (83-110); Potassium 3.8 mmol/L (3.5-5.1); Sodium 140 mmol/L (136-145)
[2020-08-02] MEDS: Furosemide 40 MG TAB PO SCH ×2 (09:29→15:17)
[2020-08-02] MEDS: Cyanocobalamin (Vitamin B-12) 1,000 MCG TAB PO SCH (09:29)
[2020-08-02] MEDS: Polyethylene Glycol 3350 17 GM Packet PO SCH (09:29)
[2020-08-02] MEDS: Fluticasone Propionate Nasal Spray 16 gm Bottle NASAL SCH (13:23)
[2020-08-02] MEDS: Acetaminophen 325 MG TAB PO PRN (15:50)
[2020-08-02] MEDS ORDERED: Furosemide 20 MG/2 ML VIAL SLOW IVP SCH (18:00)
[2020-08-02] MEDS: Cyclobenzaprine 10 MG TAB PO PRN (21:46)
[2020-08-03] MEDS: Levothyroxine Sodium 75 MCG TAB PO SCH (06:14)
[2020-08-03 08:03] VITALS: TEMP 97.8
[2020-08-03] MEDS: Cyanocobalamin (Vitamin B-12) 1,000 MCG TAB PO SCH (09:16)
[2020-08-03] MEDS: Furosemide 40 MG TAB PO SCH (09:16)
[2020-08-03] MEDS: Fluticasone Propionate Nasal Spray 16 gm Bottle NASAL SCH (09:17)
[2020-08-03] MEDS: Polyethylene Glycol 3350 17 GM Packet PO SCH (09:17)
[2020-08-03 11:27] VITALS: BP 139/63
[2020-08-03] MEDS: Cyclobenzaprine 10 MG TAB PO PRN (11:51)
[2020-08-03] MEDS: Acetaminophen 325 MG TAB PO PRN (11:51)
== END 2020-08-03 12:43 | disposition home or self-care (01) | DRG 291 ==
LOC: ERS 11:51 → ERHOLD 15:58 → 2NO 21:09
PROVIDERS: ADMIT Internal Medicine; ATTEND Internal Medicine
DX: I11.0 Hypertensive heart disease with heart failure (principal); J96.21 Acute and chronic respiratory failure with hypoxia; I50.33 Acute on chronic diastolic (congestive) heart failure; J44.9 Chronic obstructive pulmonary disease, unspecified; E78.5 Hyperlipidemia, unspecified; I48.0 Paroxysmal atrial fibrillation; E11.9 Type 2 diabetes mellitus without complications; K59.09 Other constipation; Y83.1 Surgical operation with implant of artificial internal device as the cause of abnormal reaction of the patient, or of later complication, without mention of misadventure at the time of the procedure; Z95.5 Presence of coronary angioplasty implant and graft; Z90.49 Acquired absence of other specified parts of digestive tract; Z90.89 Acquired absence of other organs; Z95.2 Presence of prosthetic heart valve; Z95.1 Presence of aortocoronary bypass graft; Z88.0 Allergy status to penicillin; Z88.8 Allergy status to other drugs, medicaments and biological substances; Z86.711 Personal history of pulmonary embolism; I25.2 Old myocardial infarction
CPT/HCPCS: 36415; 36416; 71045; 80048; 80053; 82805; 83735; 83880; 84484; 85025; 85379; 93005; 96374; J1815; J1940

== ENCOUNTER 2020-08-15 15:31 | Observation (INO) | payer MEDICARE, OTHER ==
[2020-08-15] MEDS ORDERED: Nitroglycerin 2% Ointment 1 INCH/1 GM Packet ONE (16:11)
[2020-08-15] MEDS ORDERED: Furosemide 40 MG/4 ML VIAL ONE (16:11)
[2020-08-15 16:50] LABS: Hemoglobin 12.7 g/dL (12.0-16.0); Mean Corpuscular HGB CONC 32.2 g/dL (32.0-36.0); Mean Corpuscular Hemoglobin 32.3 pg (27.0-31.0); Mean Platelet Volume 9.2 fL (7.4-10.4); Platelet Count 125 thou/uL (130-400); RBC Distribution Width 12.2 % (11.5-14.5); Red Blood Cell (RBC) Count 3.93 mill/uL (4.20-5.40); White Blood Cell (WBC) Count 8.4 thou/uL (4.8-10.8)
[2020-08-15 17:08] LABS: Band 4 % (5-11); Eosinophils 15 % (0-10); Lymphocytes 14 % (21-51); MDiff Complete? YES; Monocytes 7 % (0-10); Neutrophil 59 % (42-75); Platelet Morphology Comment Appears Decreased; Polychromasia SLIGHT = 2-3 cells (100X) (0-2/hpf); Reactive Lymphocytes 1 % (0-10)
[2020-08-15 17:14] LABS: ALT (SGPT) 9 U/L (8-55); AST (SGOT) 19 U/L (5-34); Albumin 4.2 g/dL (3.4-4.8); Alkaline Phosphatase 172 U/L (40-110); Anion Gap 16 mmol/L (10-20); BUN (Urea Nitrogen) 15 mg/dL (9.8-20.1); Bilirubin, Total 0.6 mg/dL (0.2-1.2); CK (CPK) 15 U/L (29-168); Calc. Creatinine Clearance 0 mL/min (70-130); Calcium 9.7 mg/dL (7.8-10.44); Carbon Dioxide 27 mmol/L (23-31); Chloride 99 mmol/L (98-107); Globulin 2.3 g/dL (2.4-3.5); Glucose 153 mg/dL (83-110); Lipase 19 U/L (8-78); Potassium 4.1 mmol/L (3.5-5.1); Protein, Total 6.5 g/dL (5.8-8.1); Sodium 138 mmol/L (136-145)
[2020-08-15 20:18] LABS: Troponin I 0.015 ng/mL (< 0.028)
[2020-08-15 22:16] VITALS: BMI 21.8
[2020-08-15] MEDS ORDERED: Ondansetron PF 4 MG/2 ML Vial IVP PRN (23:15)
[2020-08-15] MEDS ORDERED: Ondansetron ODT 4 MG TAB SL PRN (23:15)
[2020-08-15 23:26] LABS: Troponin I 0.018 ng/mL (< 0.028)
[2020-08-16] MEDS ORDERED: Ondansetron PF 4 MG/2 ML Vial IVP PRN (03:00)
[2020-08-16] MEDS ORDERED: Acetaminophen 325 MG TAB PO PRN (03:00)
[2020-08-16] MEDS ORDERED: Docusate 100 MG CAP PO PRN ×2 (03:04→03:10)
[2020-08-16] MEDS ORDERED: Dextrose 5% in Water 1,000 ML IV PRN (03:06)
[2020-08-16] MEDS ORDERED: Dextrose 50% Abboject 50 ML SYRINGE SLOW IVP PRN (03:06)
[2020-08-16] MEDS ORDERED: HumaLOG 300 UNITS/3 ML VIAL SC PRN ×2 (03:06)
[2020-08-16] MEDS ORDERED: Artificial Tear Sol 15 ML BOT EA EYE PRN (03:13)
[2020-08-16] MEDS ORDERED: Polyethylene Glycol 3350 17 GM Packet PO PRN (03:13)
[2020-08-16] MEDS ORDERED: Benzonatate 100 MG CAP PO PRN (03:26)
[2020-08-16] MEDS ORDERED: ALPRAZolam 0.25 MG TAB PO PRN (03:40)
[2020-08-16 05:34] LABS: #Monocytes 0.8 thou/uL (0.11-0.59); #Neutrophils 4.7 thou/uL (1.40-6.50); %Basophils 0.5 % (0.0-1.0); %Eosinophils 13.1 % (0.0-10.0); %Lymphocytes 12.8 % (21.0-51.0); %Monocytes 11.2 % (0.0-10.0); %Neutrophils 62.5 % (42.0-75.0); Hemoglobin 11.6 g/dL (12.0-16.0); Mean Corpuscular HGB CONC 33.4 g/dL (32.0-36.0); Mean Corpuscular Hemoglobin 33.3 pg (27.0-31.0); Mean Corpuscular Volume 99.6 fL (78.0-98.0); Mean Platelet Volume 9.1 fL (7.4-10.4); Platelet Count 113 thou/uL (130-400); RBC Distribution Width 12.2 % (11.5-14.5); Red Blood Cell (RBC) Count 3.48 mill/uL (4.20-5.40); White Blood Cell (WBC) Count 7.5 thou/uL (4.8-10.8)
[2020-08-16 05:50] LABS: Anion Gap 15 mmol/L (10-20); BUN (Urea Nitrogen) 14 mg/dL (9.8-20.1); Calc. Creatinine Clearance 52 mL/min (70-130); Calcium 9.3 mg/dL (7.8-10.44); Carbon Dioxide 28 mmol/L (23-31); Chloride 100 mmol/L (98-107); Glucose 172 mg/dL (83-110); Magnesium 1.8 mg/dL (1.6-2.6); Potassium 3.7 mmol/L (3.5-5.1); Sodium 139 mmol/L (136-145)
[2020-08-16] MEDS ORDERED: Furosemide 20 MG/2 ML VIAL SLOW IVP SCH ×2 (06:00→10:55)
[2020-08-16] MEDS ORDERED: Levothyroxine Sodium 75 MCG TAB PO SCH (06:00)
[2020-08-16] MEDS ORDERED: Allopurinol 100 MG TAB PO SCH (09:00)
[2020-08-16] MEDS ORDERED: Polyethylene Glycol 3350 17 GM Packet PO SCH (09:00)
[2020-08-16 11:24] VITALS: BP 128/63; TEMP 97.6
[2020-08-16] MEDS ORDERED: Budesonide 0.5 MG/2 ML NEB NEB SCH (18:30)
== END 2020-08-16 13:22 | disposition home or self-care (01) ==
LOC: ERS 15:31 → ERHOLD 18:10 → INTOOBSV 18:10 → 2SE 21:05
PROVIDERS: ADMIT Internal Medicine; ATTEND Family Medicine
DX: I11.0 Hypertensive heart disease with heart failure (principal); I50.33 Acute on chronic diastolic (congestive) heart failure; T85.9XXA Unspecified complication of internal prosthetic device, implant and graft, initial encounter; J96.21 Acute and chronic respiratory failure with hypoxia; R04.0 Epistaxis; I48.20 Chronic atrial fibrillation, unspecified; E03.9 Hypothyroidism, unspecified; I25.10 Atherosclerotic heart disease of native coronary artery without angina pectoris; E11.9 Type 2 diabetes mellitus without complications; D69.6 Thrombocytopenia, unspecified; M10.9 Gout, unspecified; J44.9 Chronic obstructive pulmonary disease, unspecified; I25.2 Old myocardial infarction; I42.9 Cardiomyopathy, unspecified; Z87.891 Personal history of nicotine dependence; Z79.4 Long term (current) use of insulin; Z79.899 Other long term (current) drug therapy; Z88.0 Allergy status to penicillin; Z88.1 Allergy status to other antibiotic agents; Z88.6 Allergy status to analgesic agent; Z88.8 Allergy status to other drugs, medicaments and biological substances; Z95.0 Presence of cardiac pacemaker; Z95.1 Presence of aortocoronary bypass graft; Z95.2 Presence of prosthetic heart valve
CPT/HCPCS: 36415; 36416; 71045; 80048; 80053; 82550; 83690; 83735; 83880; 84484; 85025; 93005; 96374; 96376; G0378; J1940

== ENCOUNTER 2020-08-23 00:12 | Inpatient (IN) | payer MEDICARE, OTHER ==
[2020-08-23] MEDS ORDERED: Furosemide 40 MG/4 ML VIAL ONE (00:30)
[2020-08-23 00:51] LABS: #Basophils 0.1 thou/uL (0.0-0.2); #Eosinphils 1.3 thou/uL (0.0-0.7); #Lymphocytes 1.2 thou/uL (1.20-3.40); #Neutrophils 9.4 thou/uL (1.40-6.50); %Basophils 0.4 % (0.0-1.0); %Lymphocytes 9.2 % (21.0-51.0); %Monocytes 7.7 % (0.0-10.0); %Neutrophils 72.7 % (42.0-75.0); Hemoglobin 13.2 g/dL (12.0-16.0); Mean Corpuscular HGB CONC 34.1 g/dL (32.0-36.0); Mean Corpuscular Hemoglobin 33.8 pg (27.0-31.0); Mean Corpuscular Volume 99.1 fL (78.0-98.0); Mean Platelet Volume 8.7 fL (7.4-10.4); Platelet Count 161 thou/uL (130-400); RBC Distribution Width 12.5 % (11.5-14.5); Red Blood Cell (RBC) Count 3.92 mill/uL (4.20-5.40); White Blood Cell (WBC) Count 12.9 thou/uL (4.8-10.8)
[2020-08-23 01:12] LABS: ALT (SGPT) 11 U/L (8-55); AST (SGOT) 24 U/L (5-34); Albumin 3.9 g/dL (3.4-4.8); Alkaline Phosphatase 178 U/L (40-110); Anion Gap 19 mmol/L (10-20); BUN (Urea Nitrogen) 22 mg/dL (9.8-20.1); Bilirubin, Total 0.7 mg/dL (0.2-1.2); CK (CPK) 14 U/L (29-168); Calc. Creatinine Clearance 0 mL/min (70-130); Calcium 9.4 mg/dL (7.8-10.44); Carbon Dioxide 23 mmol/L (23-31); Chloride 101 mmol/L (98-107); Globulin 2.5 g/dL (2.4-3.5); Glucose 196 mg/dL (83-110); Potassium 4.5 mmol/L (3.5-5.1); Protein, Total 6.4 g/dL (5.8-8.1); Sodium 138 mmol/L (136-145)
[2020-08-23] MEDS ORDERED: HumaLOG 300 UNITS/3 ML VIAL SC PRN ×2 (03:57)
[2020-08-23] MEDS ORDERED: Ondansetron ODT 4 MG TAB PO PRN (03:57)
[2020-08-23] MEDS ORDERED: Ondansetron PF 4 MG/2 ML Vial IVP PRN (03:57)
[2020-08-23] MEDS ORDERED: Dextrose 5% in Water 1,000 ML IV PRN (03:57)
[2020-08-23] MEDS ORDERED: Acetaminophen 325 MG TAB PO PRN (03:57)
[2020-08-23] MEDS ORDERED: Dextrose 50% Abboject 50 ML SYRINGE SLOW IVP PRN (03:57)
[2020-08-23] MEDS ORDERED: Electrolyte Replacement Protocol 1 EACH FS SCH (05:30)
[2020-08-23] MEDS ORDERED: Nitroglycerin 0.4 MG TAB (25 Tab Bottle) SL PRN (05:32)
[2020-08-23] MEDS: Furosemide 40 MG/4 ML VIAL SLOW IVP SCH ×2 (05:35→14:17)
[2020-08-23 05:42] LABS: Troponin I 0.031 ng/mL (< 0.028)
[2020-08-23 07:05] LABS: Troponin I 0.023 ng/mL (< 0.028)
[2020-08-23] MEDS: Enoxaparin Sodium 40 MG/0.4 ML SYRINGE SC SCH (07:56)
[2020-08-23] MEDS ORDERED: Aspirin 81 mg Enteric Coated Tablet PO SCH (09:00)
[2020-08-23] MEDS ORDERED: Lidocaine 1% w/Epinephrine 1:100K 20 ML VIAL ONE (09:37)
[2020-08-23] MEDS ORDERED: guaiFENesin ER 600 MG TAB PO PRN (13:02)
[2020-08-23] MEDS ORDERED: Bisacodyl 10 MG SUPP PR PRN (13:02)
[2020-08-23] MEDS ORDERED: Artificial Tear Sol 15 ML BOT EA EYE PRN (13:02)
[2020-08-23] MEDS ORDERED: Loratadine 10 MG TAB PO PRN (13:02)
[2020-08-23] MEDS: Cyclobenzaprine 10 MG TAB PO PRN (14:22)
[2020-08-23] MEDS: Acetaminophen 500 MG TAB PO PRN (14:23)
[2020-08-23] MEDS: Lantus 1000 UNITS/10 ML VIAL SC SCH (20:09)
[2020-08-23] MEDS: Potassium Chloride 10 MEQ TAB PO SCH (20:12)
[2020-08-23] MEDS: Allopurinol 100 MG TAB PO SCH (20:12)
[2020-08-23] MEDS: ALPRAZolam 0.25 MG TAB PO PRN (22:24)
[2020-08-24 04:39] LABS: #Eosinphils 1.1 thou/uL (0.0-0.7); #Lymphocytes 1.2 thou/uL (1.20-3.40); #Monocytes 0.8 thou/uL (0.11-0.59); #Neutrophils 3.8 thou/uL (1.40-6.50); %Basophils 0.5 % (0.0-1.0); %Eosinophils 15.5 % (0.0-10.0); %Lymphocytes 17.2 % (21.0-51.0); %Monocytes 11.8 % (0.0-10.0); Hemoglobin 11.8 g/dL (12.0-16.0); Mean Corpuscular HGB CONC 32.6 g/dL (32.0-36.0); Mean Corpuscular Hemoglobin 33.4 pg (27.0-31.0); Mean Platelet Volume 8.5 fL (7.4-10.4); Platelet Count 130 thou/uL (130-400); RBC Distribution Width 12.3 % (11.5-14.5); Red Blood Cell (RBC) Count 3.55 mill/uL (4.20-5.40); White Blood Cell (WBC) Count 6.9 thou/uL (4.8-10.8)
[2020-08-24 04:53] LABS: Anion Gap 16 mmol/L (10-20); BUN (Urea Nitrogen) 25 mg/dL (9.8-20.1); Calc. Creatinine Clearance 40 mL/min (70-130); Calcium 9.4 mg/dL (7.8-10.44); Carbon Dioxide 29 mmol/L (23-31); Chloride 100 mmol/L (98-107); Glucose 155 mg/dL (83-110); Potassium 3.9 mmol/L (3.5-5.1); Sodium 141 mmol/L (136-145)
[2020-08-24] MEDS: Furosemide 40 MG/4 ML VIAL SLOW IVP SCH ×2 (05:37→13:21)
[2020-08-24] MEDS: Levothyroxine Sodium 75 MCG TAB PO SCH (05:37)
[2020-08-24 05:41] VITALS: BMI 21.2
[2020-08-24] MEDS ORDERED: Magnesium 2 GM/50 ML 2 GM in Premix Bag 1 BAG IVPB SCH (06:15)
[2020-08-24] MEDS: Potassium Chloride 10 MEQ TAB PO SCH ×2 (09:28→21:37)
[2020-08-24] MEDS: Allopurinol 100 MG TAB PO SCH ×2 (09:28→21:37)
[2020-08-24] MEDS: Cyanocobalamin (Vitamin B-12) 1,000 MCG TAB PO SCH (09:28)
[2020-08-24] MEDS: Enoxaparin Sodium 40 MG/0.4 ML SYRINGE SC SCH (09:29)
[2020-08-24] MEDS: Sodium Chloride 0.9% 10 ML ONE ×2 (09:29→13:22)
[2020-08-24] MEDS: Docusate 100 MG CAP PO PRN (09:38)
[2020-08-24] MEDS: Polyethylene Glycol 3350 17 GM Packet PO PRN (09:38)
[2020-08-24] MEDS: Fluticasone Propionate Nasal Spray 16 gm Bottle NASAL SCH (13:23)
[2020-08-24] MEDS: Cyclobenzaprine 10 MG TAB PO PRN (16:37)
[2020-08-24] MEDS: Acetaminophen 500 MG TAB PO PRN (16:37)
[2020-08-24] MEDS ORDERED: Nystatin Powder 15 GM BOT TOP SCH (17:00)
[2020-08-24] MEDS: Lantus 1000 UNITS/10 ML VIAL SC SCH (21:37)
[2020-08-24] MEDS: ALPRAZolam 0.25 MG TAB PO PRN (21:37)
[2020-08-24] MEDS: Benzonatate 100 MG CAP PO PRN (21:37)
[2020-08-24] MEDS: Nystatin Powder 15 GM BOT TOP SCH (21:38)
[2020-08-25 05:11] LABS: Anion Gap 14 mmol/L (10-20); BUN (Urea Nitrogen) 29 mg/dL (9.8-20.1); Calc. Creatinine Clearance 46 mL/min (70-130); Calcium 9.4 mg/dL (7.8-10.44); Carbon Dioxide 30 mmol/L (23-31); Chloride 96 mmol/L (98-107); Glucose 156 mg/dL (83-110); Sodium 136 mmol/L (136-145)
[2020-08-25] MEDS: Levothyroxine Sodium 75 MCG TAB PO SCH (06:23)
[2020-08-25] MEDS: Enoxaparin Sodium 40 MG/0.4 ML SYRINGE SC SCH (08:53)
[2020-08-25] MEDS: Potassium Chloride 10 MEQ TAB PO SCH ×2 (08:53→20:29)
[2020-08-25] MEDS: Allopurinol 100 MG TAB PO SCH ×2 (08:53→20:28)
[2020-08-25] MEDS: Polyethylene Glycol 3350 17 GM Packet PO PRN (08:53)
[2020-08-25] MEDS: Cyanocobalamin (Vitamin B-12) 1,000 MCG TAB PO SCH (08:53)
[2020-08-25] MEDS: Docusate 100 MG CAP PO PRN (08:53)
[2020-08-25] MEDS: Fluticasone Propionate Nasal Spray 16 gm Bottle NASAL SCH (08:54)
[2020-08-25] MEDS: Sodium Chloride 0.65% Nasal 44 ML BOT EA NARE SCH ×3 (08:54→20:29)
[2020-08-25] MEDS: Nystatin Powder 15 GM BOT TOP SCH ×3 (08:55→20:39)
[2020-08-25] MEDS ORDERED: Furosemide 40 MG/4 ML VIAL SLOW IVP SCH (09:00)
[2020-08-25] MEDS: ALPRAZolam 0.25 MG TAB PO PRN ×2 (16:01→20:28)
[2020-08-25] MEDS: Lantus 1000 UNITS/10 ML VIAL SC SCH (20:27)
[2020-08-25] MEDS: Benzonatate 100 MG CAP PO PRN (20:28)
[2020-08-25] MEDS: Cyclobenzaprine 10 MG TAB PO PRN (20:53)
[2020-08-25] MEDS: Acetaminophen 500 MG TAB PO PRN (20:53)
[2020-08-25 22:05] VITALS: BP 143/64; TEMP 98.8
[2020-08-26] MEDS ORDERED: Furosemide 40 MG TAB PO SCH (09:00)
== END 2020-08-25 23:04 | DRG 292 ==
LOC: ERS 00:12 → 2NO 02:19
PROVIDERS: ADMIT Student in an Organized Health Care Education/Training Program; ATTEND Family Medicine
DX: I11.0 Hypertensive heart disease with heart failure (principal); I25.810 Atherosclerosis of coronary artery bypass graft(s) without angina pectoris; J96.11 Chronic respiratory failure with hypoxia; I48.20 Chronic atrial fibrillation, unspecified; I50.33 Acute on chronic diastolic (congestive) heart failure; I42.9 Cardiomyopathy, unspecified; Z20.822 Contact with and (suspected) exposure to COVID-19; J44.9 Chronic obstructive pulmonary disease, unspecified; E03.9 Hypothyroidism, unspecified; E11.9 Type 2 diabetes mellitus without complications; M10.9 Gout, unspecified; D72.829 Elevated white blood cell count, unspecified; E78.00 Pure hypercholesterolemia, unspecified; D50.9 Iron deficiency anemia, unspecified; E66.9 Obesity, unspecified; Z99.81 Dependence on supplemental oxygen; Z90.49 Acquired absence of other specified parts of digestive tract; Z95.1 Presence of aortocoronary bypass graft; I25.2 Old myocardial infarction; Z95.0 Presence of cardiac pacemaker; Z90.710 Acquired absence of both cervix and uterus; Z98.890 Other specified postprocedural states; Z95.2 Presence of prosthetic heart valve; Z87.891 Personal history of nicotine dependence; Z88.0 Allergy status to penicillin; Z88.1 Allergy status to other antibiotic agents; Z88.8 Allergy status to other drugs, medicaments and biological substances; Z88.6 Allergy status to analgesic agent; Z79.899 Other long term (current) drug therapy; Z79.890 Hormone replacement therapy; Z79.4 Long term (current) use of insulin; Z68.21 Body mass index [BMI] 21.0-21.9, adult; I27.20 Pulmonary hypertension, unspecified
CPT/HCPCS: 36415; 36416; 71045; 80048; 80053; 82550; 83735; 83880; 84443; 84484; 85025; 93005; 93306; 93798; 94640; 96374; J1650; J1940; J3475; J7620

== ENCOUNTER 2020-12-27 10:06 | Emergency (ER) | payer MEDICARE, OTHER ==
[2020-12-27 11:31] LABS: #Eosinphils 0.5 thou/uL (0.0-0.7); #Lymphocytes 0.6 thou/uL (1.20-3.40); #Monocytes 0.4 thou/uL (0.11-0.59); #Neutrophils 3.7 thou/uL (1.40-6.50); %Basophils 0.8 % (0.0-1.0); %Eosinophils 9.9 % (0.0-10.0); %Lymphocytes 11.2 % (21.0-51.0); %Monocytes 7.2 % (0.0-10.0); %Neutrophils 70.9 % (42.0-75.0); Hemoglobin 12.1 g/dL (12.0-16.0); Mean Corpuscular HGB CONC 32.4 g/dL (32.0-36.0); Mean Corpuscular Hemoglobin 32.3 pg (27.0-31.0); Mean Corpuscular Volume 99.8 fL (78.0-98.0); Mean Platelet Volume 9.6 fL (7.4-10.4); Platelet Count 84 thou/uL (130-400); RBC Distribution Width 13.4 % (11.5-14.5); Red Blood Cell (RBC) Count 3.73 mill/uL (4.20-5.40); White Blood Cell (WBC) Count 5.1 thou/uL (4.8-10.8)
[2020-12-27 11:45] LABS: ALT (SGPT) 11 U/L (8-55); AST (SGOT) 19 U/L (5-34); Alkaline Phosphatase 148 U/L (40-110); Anion Gap 15 mmol/L (10-20); BUN (Urea Nitrogen) 17 mg/dL (9.8-20.1); Bilirubin, Total 0.9 mg/dL (0.2-1.2); Calc. Creatinine Clearance 0 mL/min (70-130); Calcium 9.3 mg/dL (7.8-10.44); Carbon Dioxide 32 mmol/L (23-31); Chloride 98 mmol/L (98-107); Globulin 2.2 g/dL (2.4-3.5); Glucose 147 mg/dL (83-110); Potassium 4.1 mmol/L (3.5-5.1); Protein, Total 6.2 g/dL (5.8-8.1); Sodium 141 mmol/L (136-145)
== END 2020-12-27 14:49 | disposition home or self-care (01) ==
LOC: ERS 10:06
DX: I11.0 Hypertensive heart disease with heart failure (principal); I50.9 Heart failure, unspecified; I48.91 Unspecified atrial fibrillation; M10.9 Gout, unspecified; I42.9 Cardiomyopathy, unspecified; E03.9 Hypothyroidism, unspecified; J44.9 Chronic obstructive pulmonary disease, unspecified; I25.10 Atherosclerotic heart disease of native coronary artery without angina pectoris; I25.2 Old myocardial infarction; E11.9 Type 2 diabetes mellitus without complications; D64.9 Anemia, unspecified; Z86.711 Personal history of pulmonary embolism; Z87.891 Personal history of nicotine dependence; Z79.899 Other long term (current) drug therapy
CPT/HCPCS: 36415; 71046; 80053; 83880; 84484; 85025; 94640; J7620

== ENCOUNTER 2021-02-21 16:35 | Inpatient (IN) | payer MEDICARE, OTHER ==
[2021-02-21 17:43] LABS: #Eosinphils 0.9 thou/uL (0.0-0.7); #Lymphocytes 0.8 thou/uL (1.20-3.40); #Monocytes 0.5 thou/uL (0.11-0.59); #Neutrophils 4.8 thou/uL (1.40-6.50); %Basophils 0.4 % (0.0-1.0); %Eosinophils 12.5 % (0.0-10.0); %Lymphocytes 11.3 % (21.0-51.0); %Monocytes 6.7 % (0.0-10.0); %Neutrophils 69.1 % (42.0-75.0); Hemoglobin 12.1 g/dL (12.0-16.0); Mean Corpuscular HGB CONC 32.7 g/dL (32.0-36.0); Mean Corpuscular Hemoglobin 32.7 pg (27.0-31.0); Platelet Count 115 thou/uL (130-400); RBC Distribution Width 13.4 % (11.5-14.5); Red Blood Cell (RBC) Count 3.71 mill/uL (4.20-5.40)
[2021-02-21 18:01] LABS: ALT (SGPT) 10 U/L (8-55); AST (SGOT) 18 U/L (5-34); Albumin 4.2 g/dL (3.4-4.8); Alkaline Phosphatase 139 U/L (40-110); Anion Gap 12 mmol/L (10-20); BUN (Urea Nitrogen) 22 mg/dL (9.8-20.1); Bilirubin, Total 0.9 mg/dL (0.2-1.2); Calc. Creatinine Clearance 0 mL/min (70-130); Calcium 10.2 mg/dL (7.8-10.44); Carbon Dioxide 36 mmol/L (23-31); Chloride 99 mmol/L (98-107); Globulin 2.2 g/dL (2.4-3.5); Glucose 142 mg/dL (83-110); Potassium 4.8 mmol/L (3.5-5.1); Protein, Total 6.4 g/dL (5.8-8.1); Sodium 142 mmol/L (136-145)
[2021-02-21] MEDS ORDERED: Fentanyl 100 MCG/2 ML VIAL ONE (18:42)
[2021-02-21] MEDS ORDERED: diphenhydrAMINE 30 GM TUBE TOP SCH (19:30)
[2021-02-21] MEDS ORDERED: ALPRAZolam 0.25 MG TAB ONE (20:29)
[2021-02-21 20:42] LABS: Troponin I 0.026 ng/mL (< 0.028)
[2021-02-21 21:58] LABS: SARS-CoV-2 NAA Rapid Test Not Detected (NotDetected)
[2021-02-22 00:28] LABS: Troponin I 0.025 ng/mL (< 0.028)
[2021-02-22] MEDS ORDERED: Ondansetron PF 4 MG/2 ML Vial IVP PRN (02:22)
[2021-02-22] MEDS ORDERED: Ondansetron ODT 4 MG TAB PO PRN (02:22)
[2021-02-22] MEDS ORDERED: Acetaminophen 650 MG Suppository PR PRN (02:22)
[2021-02-22] MEDS ORDERED: Acetaminophen 325 MG TAB PO PRN (02:22)
[2021-02-22 04:47] LABS: #Eosinphils 0.9 thou/uL (0.0-0.7); #Lymphocytes 0.8 thou/uL (1.20-3.40); #Monocytes 0.5 thou/uL (0.11-0.59); #Neutrophils 3.2 thou/uL (1.40-6.50); %Basophils 0.4 % (0.0-1.0); %Eosinophils 16.4 % (0.0-10.0); %Lymphocytes 15.1 % (21.0-51.0); %Monocytes 8.4 % (0.0-10.0); %Neutrophils 59.7 % (42.0-75.0); Hemoglobin 11.8 g/dL (12.0-16.0); Mean Corpuscular HGB CONC 32.1 g/dL (32.0-36.0); Mean Corpuscular Hemoglobin 32.4 pg (27.0-31.0); Mean Platelet Volume 9.5 fL (7.4-10.4); Platelet Count 97 thou/uL (130-400); RBC Distribution Width 13.4 % (11.5-14.5); Red Blood Cell (RBC) Count 3.63 mill/uL (4.20-5.40); White Blood Cell (WBC) Count 5.4 thou/uL (4.8-10.8)
[2021-02-22] MEDS ORDERED: Polyethylene Glycol 3350 17 GM Packet PO PRN (04:53)
[2021-02-22] MEDS ORDERED: methylPREDNISolone Sod Succ 40 MG VIAL IVP SCH (05:00)
[2021-02-22 05:20] LABS: Anion Gap 10 mmol/L (10-20); BUN (Urea Nitrogen) 19 mg/dL (9.8-20.1); Calc. Creatinine Clearance 46 mL/min (70-130); Calcium 9.7 mg/dL (7.8-10.44); Carbon Dioxide 35 mmol/L (23-31); Chloride 101 mmol/L (98-107); Glucose 109 mg/dL (83-110); Magnesium 2.1 mg/dL (1.6-2.6); Sodium 142 mmol/L (136-145)
[2021-02-22] MEDS: Levothyroxine Sodium 75 MCG TAB PO SCH (06:24)
[2021-02-22] MEDS: Allopurinol 100 MG TAB PO SCH (08:49)
[2021-02-22] MEDS: Enoxaparin Sodium 40 MG/0.4 ML SYRINGE SC SCH (08:49)
[2021-02-22] MEDS: Furosemide 40 MG/4 ML VIAL SLOW IVP SCH (08:49)
[2021-02-22] MEDS: Budesonide 0.5 MG/2 ML NEB NEB SCH ×2 (10:23→18:42)
[2021-02-22 17:11] LABS: Base Excess 8.7 mEq/L (-2.0 to +3.0); Calcium, Ionized (venous) 1.14 mmol/L (1.16-1.32); Chloride (VBG) 96 mmol/L (98-106); Hemoglobin (Hb) 12.7 g/dL (11.7-16.1); Potassium (VBG) 4.56 mmol/L (3.70-5.30); Sodium 137.6 mmol/L (133-146); pH (venous) 7.37 (7.32-7.43)
[2021-02-22 17:13] LABS: Actual Bicarbonate (HCO3v) 36 mEq/L (22-28)
[2021-02-22] MEDS: ALPRAZolam 0.25 MG TAB PO PRN (18:41)
[2021-02-23 05:53] LABS: #Eosinphils 0.3 thou/uL (0.0-0.7); #Lymphocytes 0.7 thou/uL (1.20-3.40); #Monocytes 0.5 thou/uL (0.11-0.59); #Neutrophils 3.2 thou/uL (1.40-6.50); %Basophils 0.6 % (0.0-1.0); %Eosinophils 6.6 % (0.0-10.0); %Lymphocytes 13.9 % (21.0-51.0); %Monocytes 11.2 % (0.0-10.0); %Neutrophils 67.6 % (42.0-75.0); Hemoglobin 11.3 g/dL (12.0-16.0); Mean Corpuscular HGB CONC 32.5 g/dL (32.0-36.0); Mean Corpuscular Hemoglobin 32.4 pg (27.0-31.0); Mean Corpuscular Volume 99.8 fL (78.0-98.0); Mean Platelet Volume 9.7 fL (7.4-10.4); Platelet Count 90 thou/uL (130-400); RBC Distribution Width 13.3 % (11.5-14.5); Red Blood Cell (RBC) Count 3.48 mill/uL (4.20-5.40); White Blood Cell (WBC) Count 4.7 thou/uL (4.8-10.8)
[2021-02-23 06:17] LABS: Anion Gap 11 mmol/L (10-20); BUN (Urea Nitrogen) 20 mg/dL (9.8-20.1); Calc. Creatinine Clearance 42 mL/min (70-130); Calcium 9.8 mg/dL (7.8-10.44); Carbon Dioxide 35 mmol/L (23-31); Chloride 97 mmol/L (98-107); Glucose 111 mg/dL (83-110); Potassium 4.8 mmol/L (3.5-5.1); Sodium 138 mmol/L (136-145)
[2021-02-23] MEDS: Levothyroxine Sodium 75 MCG TAB PO SCH (06:36)
[2021-02-23] MEDS: Budesonide 0.5 MG/2 ML NEB NEB SCH ×2 (08:02→18:47)
[2021-02-23] MEDS: methylPREDNISolone Sod Succ 40 MG VIAL IVP SCH (09:50)
[2021-02-23] MEDS: Furosemide 40 MG/4 ML VIAL SLOW IVP SCH (09:50)
[2021-02-23] MEDS: Allopurinol 100 MG TAB PO SCH (09:51)
[2021-02-23] MEDS: Azithromycin 250 MG TAB PO SCH (09:51)
[2021-02-23] MEDS: Enoxaparin Sodium 40 MG/0.4 ML SYRINGE SC SCH (09:51)
[2021-02-23] MEDS ORDERED: Sodium Chloride 0.65% Nasal 44 ML BOT EA NARE PRN (19:49)
[2021-02-23] MEDS: ALPRAZolam 0.25 MG TAB PO PRN (20:50)
[2021-02-24] MEDS: Levothyroxine Sodium 75 MCG TAB PO SCH (05:55)
[2021-02-24] MEDS: Budesonide 0.5 MG/2 ML NEB NEB SCH (07:00)
[2021-02-24 07:56] LABS: #Eosinphils 0.1 thou/uL (0.0-0.7); #Lymphocytes 0.6 thou/uL (1.20-3.40); #Monocytes 0.4 thou/uL (0.11-0.59); %Basophils 0.3 % (0.0-1.0); %Eosinophils 1.7 % (0.0-10.0); %Lymphocytes 11.8 % (21.0-51.0); %Monocytes 8.4 % (0.0-10.0); %Neutrophils 77.7 % (42.0-75.0); Hemoglobin 11.7 g/dL (12.0-16.0); Mean Corpuscular HGB CONC 32.4 g/dL (32.0-36.0); Mean Corpuscular Hemoglobin 32.6 pg (27.0-31.0); Mean Platelet Volume 9.6 fL (7.4-10.4); Platelet Count 97 thou/uL (130-400); RBC Distribution Width 13.3 % (11.5-14.5); Red Blood Cell (RBC) Count 3.58 mill/uL (4.20-5.40); White Blood Cell (WBC) Count 5.1 thou/uL (4.8-10.8)
[2021-02-24 08:10] LABS: Anion Gap 13 mmol/L (10-20); BUN (Urea Nitrogen) 29 mg/dL (9.8-20.1); Calc. Creatinine Clearance 38 mL/min (70-130); Calcium 9.9 mg/dL (7.8-10.44); Carbon Dioxide 34 mmol/L (23-31); Chloride 98 mmol/L (98-107); Glucose 109 mg/dL (83-110); Potassium 4.9 mmol/L (3.5-5.1); Sodium 140 mmol/L (136-145)
[2021-02-24] MEDS: methylPREDNISolone Sod Succ 40 MG VIAL IVP SCH (09:08)
[2021-02-24] MEDS: Furosemide 40 MG/4 ML VIAL SLOW IVP SCH (09:08)
[2021-02-24] MEDS: Azithromycin 250 MG TAB PO SCH (09:09)
[2021-02-24] MEDS: Allopurinol 100 MG TAB PO SCH (09:09)
[2021-02-24 11:43] VITALS: BP 143/65; TEMP 97.5
== END 2021-02-24 15:24 | disposition swing bed (61) | DRG 291 ==
LOC: ERS 16:35 → ERHOLD 19:46 → NEURO 23:24
PROVIDERS: ADMIT Student in an Organized Health Care Education/Training Program; ATTEND Family Medicine
PROC: 3E0G76Z Introduction of Nutritional Substance into Upper GI, Via Natural or Artificial Opening (ICD-10-PCS; principal; 2021-02-21)
DX: I11.0 Hypertensive heart disease with heart failure (principal); J96.21 Acute and chronic respiratory failure with hypoxia; I50.33 Acute on chronic diastolic (congestive) heart failure; J44.1 Chronic obstructive pulmonary disease with (acute) exacerbation; Z20.822 Contact with and (suspected) exposure to COVID-19; I42.9 Cardiomyopathy, unspecified; E03.9 Hypothyroidism, unspecified; I25.10 Atherosclerotic heart disease of native coronary artery without angina pectoris; M10.9 Gout, unspecified; I48.91 Unspecified atrial fibrillation; I27.20 Pulmonary hypertension, unspecified; D69.6 Thrombocytopenia, unspecified; R04.0 Epistaxis; G89.29 Other chronic pain; I07.1 Rheumatic tricuspid insufficiency; M54.9 Dorsalgia, unspecified; Z99.81 Dependence on supplemental oxygen; Z95.1 Presence of aortocoronary bypass graft; Z95.2 Presence of prosthetic heart valve; Z88.6 Allergy status to analgesic agent; Z88.0 Allergy status to penicillin; Z88.8 Allergy status to other drugs, medicaments and biological substances; I25.2 Old myocardial infarction; Z95.0 Presence of cardiac pacemaker; Z86.711 Personal history of pulmonary embolism; Z98.890 Other specified postprocedural states; Z90.710 Acquired absence of both cervix and uterus; Z87.891 Personal history of nicotine dependence; Z79.899 Other long term (current) drug therapy; Z79.890 Hormone replacement therapy; Z79.51 Long term (current) use of inhaled steroids; Z90.49 Acquired absence of other specified parts of digestive tract; Z90.721 Acquired absence of ovaries, unilateral
CPT/HCPCS: 0240U; 36415; 36416; 71045; 80048; 80053; 82805; 83735; 83880; 84484; 85025; 93005; 93798; 94640; 96374; J1650; J1940; J2920; J3010; J7620; J7626